=== PATIENT | female | born 1965 | race Caucasian/White ===

== ENCOUNTER 2023-09-28 11:26 | Emergency (ER) | payer OTHER, SELFPAY ==
[2023-09-28 11:40] VITALS: BP 104/70; PULSE 75; RESP 18; TEMP 36.6; O2SAT 95; BMI 26.6
--- NOTE | 2023-09-28 12:26 | CRLHL7_ITS ---
For Patients: As a result of the 21st Century Cures Act, medical imaging exams and procedure reports are released immediately into your electronic medical record. You may view this report before your referring provider. If you have questions, please contact your health care provider. INDICATION: Tumor removal 1 week ago with infection at the surgical site COMPARISON: None. TECHNIQUE: CT of the head and face after administration of intravenous contrast (79 milliliters Isovue 370) FINDINGS: Streak artifact from dental hardware limits evaluation of adjacent structures. Some linear fat stranding in the bilateral frontal scalp is compatible with postsurgical change/scarring. Postoperative changes associated with the bilateral frontal sinus/anterior frontal bone compatible with prior resection at this region as well as placement of bone graft and plate and screw fixation hardware. Deep to the region of postoperative change there is a 2.8 x 1.6 centimeter extra-axial collection with trace internal gas and a thin hyperattenuating rim which causes mild mass effect on the bilateral anterior frontal pole (2/15). There is mild nonspecific hyperattenuating dural thickening at the adjacent inferior portion of the bilateral frontal lobe. Focal rounded prominence of the extra-axial CSF space at the right greater than left paramidline region inferior to the frontal lobes measuring up to 18 millimeters. There is mild hypoattenuating change in the white matter which is slightly more conspicuous at the right frontal lobe near the surgical bed which could represent gliosis, postoperative change, or edema. There are several areas of nodular skin soft tissue thickening in the face and scalp which are better characterized by physical exam than CT such as prolonged millimeter soft tissue nodule at the right frontal scalp (2/8). Slight opacification of the bilateral anterior ethmoid air cells. Bilateral ino bullosa. The bilateral mastoid air cells are clear. Normal appearance of the bilateral orbits. Visualized portion of the salivary glands are normal appearing. IMPRESSION: Postoperative changes associated with the bilateral frontal sinus/anterior frontal bone compatible with prior resection at this region as well as placement of bone graft and plate and screw fixation hardware. Deep to the region of postoperative change there is a 2.8 cm extra-axial nonspecific postoperative fluid collection with trace internal gas and a thin hyperattenuating rim which causes mild mass effect on the bilateral anterior frontal pole. The sterility of this collection can not be assessed by CT. There is mild nonspecific hyperattenuating dural thickening at the adjacent inferior portion of the bilateral frontal lobe. There is mild hypoattenuating change in the white matter at the right frontal lobe near the surgical bed which could represent gliosis, postoperative change, or edema. Recommend correlation with operative history and prior imaging if available. Please note that all CT scans at this facility use dose modulation, iterative reconstruction, and/or weight-based dosing when appropriate to reduce radiation dose to as low as reasonably achievable. Dictated by Artie Joshi MD @ 09/28/2023 2:17:36 PM (Electronically Signed)
--- NOTE | 2023-09-28 12:26 | CRLHL7_ITS ---
For Patients: As a result of the Century Cures Act, medical imaging exams and procedure reports are released immediately into your electronic medical record. You may view this report before your referring provider. If you have questions, please contact your health care provider. INDICATION [Tumor removal 1 week ago with infection at the surgical site] COMPARISON [None.] TECHNIQUE CT of the head and face after administration of intravenous contrast (79 milliliters Isovue 370) FINDINGS Streak artifact from dental hardware limits evaluation of adjacent structures. Some linear fat stranding in the bilateral frontal scalp is compatible with postsurgical change/scarring. Postoperative changes associated with the bilateral frontal sinus/anterior frontal bone compatible with prior resection at this region as well as placement of bone graft and plate and screw fixation hardware. Deep to the region of postoperative change there is a 2.8 x 1.6 centimeter extra-axial collection with trace internal gas and a thin hyperattenuating rim which causes mild mass effect on the bilateral anterior frontal pole (2/15). There is mild nonspecific hyperattenuating dural thickening at the adjacent inferior portion of the bilateral frontal lobe. Focal rounded prominence of the extra-axial CSF space at the right greater than left paramidline region inferior to the frontal lobes measuring up to 18 millimeters. There is mild hypoattenuating change in the white matter which is slightly more conspicuous at the right frontal lobe near the surgical bed which could represent gliosis, postoperative change, or edema. [There are several areas of nodular skin soft tissue thickening in the face and scalp which are better characterized by physical exam than CT such as prolonged millimeter soft tissue nodule at the right frontal scalp (2/8). Slight opacification of the bilateral anterior ethmoid air cells. Bilateral ino bullosa. The bilateral mastoid air cells are clear. Normal appearance of the bilateral orbits. Visualized portion of the salivary glands are normal appearing. IMPRESSION Postoperative changes associated with the bilateral frontal sinus/anterior frontal bone compatible with prior resection at this region as well as placement of bone graft and plate and screw fixation hardware. Deep to the region of postoperative change there is a 2.8 cm extra-axial nonspecific postoperative fluid collection with trace internal gas and a thin hyperattenuating rim which causes mild mass effect on the bilateral anterior frontal pole. The sterility of this collection can not be assessed by CT. There is mild nonspecific hyperattenuating dural thickening at the adjacent inferior portion of the bilateral frontal lobe. There is mild hypoattenuating change in the white matter at the right frontal lobe near the surgical bed which could represent gliosis, postoperative change, or edema. Recommend correlation with operative history and prior imaging if available. Please note that all CT scans at this facility use dose modulation, iterative reconstruction, and/or weight-based dosing when appropriate to reduce radiation dose to as low as reasonably achievable. Dictated by: Artie Joshi MD @ 09/28/2023 14:17:54 (Electronically Signed)
--- NOTE | 2023-09-28 12:42 | ED.GENADULT ---
HPI - General Adult General Date Seen: 09/28/23 Chief complaint: Post Op Complication Stated complaint: Brain surgery x1wk ago, swelling, redness Time Seen by Provider: 09/28/23 12:15 Source: patient Mode of arrival: ambulatory Limitations: no limitations History of Present Illness HPI narrative: Patient is a 58-year-old female presenting to emergency department for concern of infection of her surgical site. Over a week ago at [facility] she had a brain tumor removed and was discharged 1 week ago. She was doing well up until this past couple days she has been noticing some erythema around the surgical site and now there are some yellow crusting spots the fall along the surgical site. She also notes increased swelling to that area and her cheeks. Headache is also getting worse. She states the headache was tolerable just a few days ago. The symptoms are worse than yesterday when she saw her neurosurgeon. Yesterday he prescribed her Keflex and topical antibiotic. Was informed to come to the emergency department if symptoms are worsening. Other that she is feeling well. Denies fevers, chills, chest pain, shortness of breath, lightheadedness, dizziness, abdominal pain, nausea/vomiting. Does think care vision might be a little blurry the can not tell if that is from an issue with her eye or just the swelling around the eye [place] being her field of vision. Related Data Home Medications ?Medication ?Instructions ?Recorded ?Confirmed Tylenol es 1,000 mg PO TID 09/28/23 09/28/23 cephalexin 500 mg capsule 500 mg PO QID 09/28/23 09/28/23 hydroxyzine pamoate 25 mg capsule 50 mg PO Q6-8H PRN 09/28/23 09/28/23 (Vistaril) levetiracetam 500 mg tablet 500 mg PO BID 09/28/23 09/28/23 (Keppra) methocarbamol 500 mg tablet 500 mg PO Q8H 09/28/23 09/28/23 mupirocin 2 % topical ointment 1 applic topical BID 09/28/23 09/28/23 (Centany) oxcodone 5 mg PO .4-6 hours 09/28/23 09/28/23 varenicline 1 mg tablet (Chantix) 1 mg PO BID 09/28/23 09/28/23 Allergies Allergy/AdvReac Type Severity Reaction Status Date / Time No Known Drug Allergies Allergy Verified 09/28/23 11:56 Review of Systems Status of ROS: Reports: 10 or more systems reviewed and unremarkable except as noted in History and below Exam Narrative: Exam Narrative: Const: Well-nourished, Well-developed, in mild distress Eyes: PERRL, no conjunctival injection, and symmetrical lids HENT: Atraumatic external nose and ears. Moist mucous membranes. Erythema seen throughout the surgical site through her eyebrows with marissa appearing crusting vesicles along the. Also noted swelling to her forehead and cheeks. Neck: Symmetric, trachea midline, No thyromegaly. CVS: RRR, No murmurs or gallops. Peripheral pulses 2+ and equal in all extremities RESP: Unlabored respiratory effort. Clear to auscultation bilaterally. GI: Nontender/Nondistended, No rebound or guarding. MSK:Extremities w/o deformity, Normal Active ROM Skin: Warm, Dry. No rashes or lesions. Neuro: Normal Muscle tone, No focal neurological deficits. Psych: Awake, Alert, & Oriented x3. Appropriate mood and affect. Const: Vital Signs, click to edit/add: Vital Signs - 24 hr 09/28/23 11:40 09/28/23 13:35 Temperature 97.8 F Pulse Rate [Pulse Oximeter] 75 57 L Respiratory Rate 18 18 Blood Pressure [Ri ght Upper Arm] 104/70 138/89 Pulse Oximetry 95 96 Oxygen Delivery Me thod Room Air Room Air Course Vital Signs Vital signs: Initial Vital Signs Temperature 97.8 F 09/28/23 11:40 Temperature Source Temporal Artery Scan 09/28/23 11:40 Pulse Rate 75 09/28/23 11:40 Respiratory Rate 18 09/28/23 11:40 Blood Pressure 104/70 09/28/23 11:40 Blood Pressure Mean 81 09/28/23 11:40 Blood Pressure Position Sitting 09/28/23 11:40 Pulse Oximetry 95 09/28/23 11:40 Oxygen Delivery Method Room Air 09/28/23 11:40 Vital Signs Temperature 97.8 F 09/28/23 11:40 Pulse Rate 75 09/28/23 11:40 Respiratory Rate 18 09/28/23 11:40 Blood Pressure 104/70 09/28/23 11:40 Pulse Oximetry 95 09/28/23 11:40 Oxygen Delivery Method Room Air 09/28/23 11:40 Temperature 97.8 F 09/28/23 11:40 Pulse Rate 57 L 09/28/23 13:35 Respiratory Rate 18 09/28/23 13:35 Blood Pressure 138/89 09/28/23 13:35 Pulse Oximetry 96 09/28/23 13:35 Oxygen Delivery Method Room Air 09/28/23 13:35 Medications Administered Medications: Discontinued Medications Generic Name Dose Route Start Last Admin Trade Name Lizzette PRN Reason Stop Dose Admin Morphine Sulfate 4 mg 09/28/23 12:26 09/28/23 13:01 Morphine 4 Mg/Ml Inj IVP 09/28/23 12:27 4 mg ONCE ONE Administration Medical Decision Making MDM Narrative Medical decision making narrative: Patient is a 58-year-old female presenting to the emergency department for headache and worsening infection around the surgical site. She states there is notably more swelling and is more painful. She is told to come to the emergency department for evaluation. Will do a CT scan with IV contrast of her head and facial bones. Also order CBC, CMP, CRP, urinalysis. She states she was having some urinary symptoms let us whether urinalysis was ordered. CBC shows no concerning abnormalities. CMP shows no concerning abnormalities. CRP is slightly elevated 3.2. I am unable to see her previous CRP that was done yesterday. CT scan of the head and facial bones shows a 2.8 x 1.6 cm fluid collection within the brain causing some mild mass effect. I spoke to Dr. Villarreal of neurosurgery her states to send her to the emergency department for transfer. I then [facility] Dr[facility] for transfer. Patient is agreeable to this plan. She has been given 2 separate doses of morphine for pain control. She states that is helping. We are unable to push the images and was sent to CD. Speaking to Dr. Puentes we will start the patient on vancomycin and Zosyn. She will be transferred via ambulance Lab Data Labs: Lab Results 09/28/23 Range/Units 13:04 WBC 11.55 H (4.50-11.00) K/uL RBC 4.12 (4.00-5.20) m/uL Hgb 11.5 L (12.0-16.0) gm/dL Hct 36.4 (33.0-51.0) % MCV 88 (80-100) fL MCH 28 (26-34) pg MCHC 32 (32-36) gm/dL RDW Coeff of Laci 13.7 (11.5-15.5) % Plt Count 232 (140-440) K/uL Neut % (Auto) 62.8 (42.0-72.0) % Lymph % (Auto) 22.2 (20-44) % Ashe % (Auto) 10.0 (0.0-11.0) % Eos % (Auto) 2.9 (0.0-7.0) % Baso % (Auto) 0.4 (0.0-3.0) % Neut # (Auto) 7.30 H (1.7-7.0) K/uL Lymph # (Auto) 2.60 (0.90-2.90) K/uL Ashe # (Auto) 1.20 H (0.00-0.90) K/UL Eos # (Auto) 0.30 (0.00-0.50) K/uL Baso # (Auto) 0.00 (0.00-0.30) K/uL Abs Immat Gran (auto) 0.20 (0.00-0.30) K/uL Imm/Tot Granulo (auto) 1.7 % Sodium 136 (135-149) mmol/L Potassium 3.7 (3.6-5.1) mmol/L Chloride 108 (96-114) mmol/L Carbon Dioxide 27 (20-32) mmol/L Anion Gap 1 L (7-15) mEq/L BUN 14 (7-30) mg/dL Creatinine 0.6 (0.5-1.5) mg/dL Estimated Creat Clear 90.84 Estimated GFR 103 ml/min Glucose 102 (60-115) mg/dL Calcium 9.1 (8.4-10.6) mg/dL C-Reactive Protein 3.2 H (0.5-1.0) mg/dL Imaging Data CT scan with IV contrast head and facial bones: Attestation: I have reviewed the pertinent imaging results. Radiologist's impression: Postoperative changes associated with the bilateral frontal sinus/anterior frontal bone compatible with prior resection at this region as well as placement of bone graft and plate and screw fixation hardware. Deep to the region of postoperative change there is a 2.8 cm extra-axial nonspecific postoperative fluid collection with trace internal gas and a thin hyperattenuating rim which causes mild mass effect on the bilateral anterior frontal pole. The sterility of this collection can not be assessed by CT. There is mild nonspecific hyperattenuating dural thickening at the adjacent inferior portion of the bilateral frontal lobe. There is mild hypoattenuating change in the white matter at the right frontal lobe near the surgical bed which could represent gliosis, postoperative change, or edema. Recommend correlation with operative history and prior imaging if available. Please note that all CT scans at this facility use dose modulation, iterative reconstruction, and/or weight-based dosing when appropriate to reduce radiation dose to as low as reasonably achievable. Dictated by: Artie Joshi MD @ 09/28/2023 14:17:54 Discharge Plan Discharge Clinical Impression: Impetigo Fluid collection at surgical site Qualifiers: Encounter type: initial encounter Qualified Code(s): T88.8XXA - Other specified complications of surgical and medical care, not elsewhere classified, initial encounter Patient Disposition: Xfer Other Discharge Location: [facility] Condition: Stable Prescriptions: No Action oxcodone 5 mg PO .4-6 hours Patient Comments: 2 tabs methocarbamol 500 mg tablet 500 mg PO Q8H hydroxyzine pamoate [Vistaril] 25 mg capsule 50 mg PO Q6-8H PRN varenicline [Chantix] 1 mg tablet 1 mg PO BID levetiracetam [Keppra] 500 mg tablet 500 mg PO BID Tylenol es 1,000 mg PO TID cephalexin 500 mg capsule 500 mg PO QID mupirocin [Centany] 2 % ointment 1 applic topical BID Follow Up/Referrals: Provider,Not a Local [Primary Care Provider] - Stand Alone Forms: Vigme Info Instructions
--- OUTSIDE RECORDS SUMMARY | 2023-09-28 12:46 | XMS_ITS | Encounter Summary ---
Author Organization [facility] Address [address] [place] [address] Care Team Providers Care Map Maker Name Role Phone Svitlana Olmos MD Primary Care Provider [phone] Encounter Details Date Type Department Care Team (Late st Contact Info) Description 09/23/2023 Notes/Orders [facility] Cardiac Non-Invasive Lab [address] [place], [place] [id number] Chiquita Gaffney MD [address] [place], [place] [phone] Bradycardia (Primary Dx) Social History Tobacco Use Types Packs/Day Years Used Date Smoking Tobacco: Every Day Cigarettes 1 40.2 Started: 02/28/1979; Last attempted to quit: 05/30/2019 Smokeless Tobacco: Never Comments:Smoking History Pac ks/day: quit 06/13/2023 Alcohol Use Standard Drinks/Week Comments No 0 (1 standard drink = 0.6 oz pur e alcohol) [facility] Utilities Answer Date Recorded In the past 12 months has e [employer], gas, oil, or water [place] threatened to shut off services in your home? No 09/14/2023 Humiliation, Afraid, Rape, and Kick questionnair e Answer Date Recorded Fear of Current or Ex-Partner Not on file Within the last year, have y ou been humiliated or emotionally abused in other ways by your partner or ex-partner? No 09/14/2023 Within the last year, have y ou been kicked, hit, slapped, or otherwise physically hurt by your partner or ex-partner? No 09/14/2023 Within the last year, have y ou been raped or forced to have any kind of sexual activity by your partner or ex-partner? No 09/14/2023 PHQ-2 Answer Date Recorded PHQ-2 Score 0 06/09/2023 Hunger Vital Sign Answer Date Recorded Within the past 12 months, y ou worried that your food would run out before you got the money to buy more. Never true 09/14/19 24 Within the past 12 months, t he food you bought just didn't last and you didn't have money to get more. Never true 09/14/2023 PRAPARE - Transportation Answer Date Re corded In the past 12 months, has l ack of transportation kept you from medical appointments or from getting medications? No 08/28 In the past 12 months, has l ack of transportation kept you from meetings, work, or from getting things needed for daily living? No 09/14/2023 Housing Stability Vital Sign Answer Davie e Recorded In the last 12 months, was t here a time when you were not able to pay the mortgage or rent on time? No 09/14/2023 In the last 12 months, how many places have you lived? 1 09/14/2023 In the last 12 months, was t here a time when you did not have a steady place to sleep or slept in a mcfp (including now)? No 09/14/2023 Sex and Gender Information Value Date Recorded Sex Assigned at Not on file Gender Identity Not on file Sexual Orientation Not on file documented as of this encounter Plan of Treatment Upcoming Encounters Date Type Department Care Team (Late st Contact Info) Description 09/29/2023 8:40 AM CDT Appointment [facility] Neurosurgery/Ortho Spine [address] [place] [address] Nurse Visit 10/03/2023 11:00 AM CDT Appointment [facility] [address] [address] Svitlana Olmos MD [address] [place] [address] 10/20/2023 10:30 AM CDT Appointment [facility] Neurosurgery[facility]tho Spine [address] [facility] [place] [address] 12/06/2023 10:20 AM CDT Appointment [facility] Neurosurgery/Ortho Spine [address] [facility] [place] [place] [address] Jg Munguia MD [address] [place] [address] 01/03/2024 11:20 AM [employer] Appointment [facility] Dental [facility] [id number] [place] [address] [facility] [address] [place] [address] documented as of this encounter Visit Diagnoses Diagnosis Bradycardia- Primary Other specified cardiac dysrhythmias documented in this encounter Care Teams Map Maker Relationship Specialty Start Date End Date Svitlana Olmos MD [address] [place] [id number] PCP - General 05/30/10 documented as of this encounter
--- OUTSIDE RECORDS SUMMARY | 2023-09-28 12:46 | XMS_ITS | Encounter Summary ---
[facility] Organization [facility] Address [address] [place] [address] Care Team Providers Care Lockstitch Back Maker Name Role Phone Svitlana Olmos MD Primary Care Provider [phone] Reason for Referral * Procedure/Equipment (Routine) - New Request Specialty Diagnoses / Procedures Referred By Contac t Referred To Contact Diagnoses Meningioma (HRC) Procedures Hospital Bed - Electric Svitlana Olmos MD [address] [place] [address] Referral ID Status Reason Start Date Expiration Date V isits Requested Visits Authorized [id number] New Request 09/26/2023 03/24/2024 1 1 Reason for Visit * Reason Comments Other Encounter Details Date Type Department Care Team (Late st Contact Info) Description 09/26/2023 Telephone [facility] [address] [place] [address] Svitlana Olmos MD [address] [place] [address] Other Social History Tobacco Use Types Packs/Day Years Used Date Smoking Tobacco: Every Day Cigarettes 1 40.2 Started: 02/28/1979; Last attempted to quit: 05/30/2019 Smokeless Tobacco: Never Comments:Smoking History Pac ks/day: quit 06/13/2023 Alcohol Use Standard Drinks/Week Comments No 0 (1 standard drink = 0.6 oz pur e alcohol) [facility] Utilities Answer Date Recorded In the past 12 months has th e electric, gas, oil, or water company threatened to shut off services in your [...] place to sleep or slept in a nursing home (including now)? No 09/14/2023 Sex and Gender Information Value Date Recorded Sex Assigned at Not on file Gender Identity Not on file Sexual Orientation Not on file documented as of this encounter Nursing Notes * Shanita Escamilla LPN - 09/26/2023 4:18 PM CDT Notified pt that order will be sent to [facility] and they should be in touch with her. * Svitlana Olmos MD - 09/26/2023 3:56 PM CDT I printed the order, need to sign it. Just need to know where she wants us to send it. Many of our patients down here use [employer] [facility]. * Shanita Escamilla LPN - 09/26/2023 3:22 PM CDT She has no preference but has names of possible companies: [employer], [employer], [employer], [employer]. Bed needs to be semi automatic. * Svitlana Olmos MD - 09/26/2023 2:11 PM CDT Please call her to get more information. 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 Does she know where she wants to get the bedfrom? * Timur Weathers - 09/26/2023 10:48 AM CDT Pt needs to speak with care team SARAH BETH to discuss getting order for medical bed - needs to be withinnext 24 hours if possible. Please call today - [phone] documented in this encounter Plan of Treatment Upcoming Encounters Date Type Department Care Team (Late st Contact Info) Description 09/29/2023 8:40 AM CDT Appointment [facility] Neurosurgery/Ortho Spine [address] [place] [address] Nurse Visit 10/03/2023 11:00 AM CDT Appointment [facility] [address] [address] Svitlana Olmos MD [address] [place] [address] 10/20/2023 10:30 AM CDT Appointment [facility] Neurosurgery/Ortho Spine [address] [place] [address] 12/06/2023 10:20 AM CDT Appointment [facility] Neurosurgery/Ortho Spine [address] [place] [address] Jg Munguia MD [address] [place] [address] 01/03/2024 11:20 AM SPEECH COMMUNICATION PROFESSOR Appointment [facility] [address] [place], [place] [phone] [facility] [address] [place], [place] [id number] documented as of this encounter Visit Diagnoses Diagnosis Meningioma (HRC)- Primary Benign neoplasm of cerebral meninges documented in this encounter Care Teams Lockstitch Back Maker Relationship Specialty Start Date End Date Svitlana Olmos MD [address] [place] [address] PCP - General 05/30/10 documented as of this encounter
--- OUTSIDE RECORDS SUMMARY | 2023-09-28 12:46 | XMS_ITS | Encounter Summary ---
Author Organization [facility] Address [address] [place] [address] Care Team Providers Care Nuisance Animal Damage Control Agent Name Role Phone Svitlana Olmos MD Primary Care Provider [phone] Reason for Visit * Reason Comments Medication Request Encounter Details Date Type Department Care Team (Late st Contact Info) Description 09/26/2023 Refill [facility] [address] [place] [address] [place] [id number] Svitlana Olmos MD [address] [place], [place] [address] [phone] Medication Request Social History Tobacco Use Types Packs/Day Years Used Date Smoking Tobacco: Every Day Cigarettes 1 40.2 Started: 02/28/1979; Last attempted to quit: 05/30/2019 Smokeless Tobacco: Never Comments:Smoking History Pac ks/day: quit 06/13/2023 Alcohol Use Standard Drinks/Week Comments No 0 (1 standard drink = 0.6 oz pur e alcohol) [facility] Utilities Answer Date Recorded In the past 12 months has e electric, gas, oil, or water company [...] place to sleep or slept in a long term (including now)? No 09/14/2023 Sex and Gender Information Value Date Recorded Sex Assigned at Not on file Gender Identity Not on file Sexual Orientation Not on file documented as of this encounter Nursing Notes * Shanita Escamilla LPN - 09/26/2023 3:25 PM CDT Spoke to pt and she reports that she called [facility] and they told her to contact her PMD. * Svitlana Olmos MD - 09/26/2023 2:18 PM CDT Please let the patient know I did send in her refills. 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 Just curious. (There is another call out about a hospital bed for her as well). * Arlen Ramon RN - 09/26/2023 2:02 PM CDT DOES NOT MEET REQUIREMENTS FOR REFILL Reason: medication not on approved RN refill list and needing signed order from PCP Last visit with PCP: qualifying visit on 08/31/2023 Last refill: 09/22/2023 from [facility] Outpatient pharmacy for hospital discharge #16 hydroxyzine #30 methocarbamol #25 oxycodone Called [facility] outpatient pharmacy and pt was given prescriptions to take home with her on 09/22/2023. Patient had brain surgery last week she states and was discharged on 09-21-23 and does not have enough of the above medications that Neurosurgeon prescribed from hospital at [facility] and she was toldto call PCP and ask for meds as patient does not have enough meds till appt with PCP on 10-03-23. Requested Prescriptions Pending Prescriptions Disp Refills hydrOXYzine pamoate (VISTARIL) 50 MG capsule 20 Capsule 0 Sig: Take 1 Capsule (50 mg) by mouth every 6 hours as needed for Pain. methocarbamol (ROBAXIN) 500 MG tablet 20 Tablet 0 Sig: Take 1 Tablet (500 mg) by mouth 4 times daily as needed. oxyCODONE (ROXICODONE) 5 MG immediate release tablet 30 Tablet 0 Sig: Take 1-2 Tablets (5-10 mg) by mouth every 6 hours as needed for Pain. * Kvng Martinez - 09/26/2023 1:41 PM CDT Medications - New Medication What medication are you calling about (name or what do/did you take it for)? Medications - see below and addl comments please Why are you calling for this medication? hydrOXYzine pamoate (VISTARIL) 50 MG capsule - wants 20 tablets methocarbamol (ROBAXIN) 500 MG tablet - wants 20 tablets oxyCODONE (ROXICODONE) 5 MG immediate release tablet - wants 30 tablets Do you have any symptoms related to this medication request? Yes - no Have you taken this medication or type of medication before and if so, when was it last taken? Yes: today - daily Additional comments (related to the above concern): Patient had Brain surgery last week she states and was discharged on 09-21-23 and does not have enough of the above medications that Neurosurgeon prescribed from hospital at [facility] and she was told to call PCP and ask for meds as patient does not have enough meds till appt with PCP on 10-03-23. For this new medication, patient would like it filled at the pharmacy listed in Medication Management. YES Preferred communication method: Phone Call. Is it okay to leave a detailed message on your voicemail? Yes Is there anything else I can help you with today? NO documented in this encounter Plan of Treatment Upcoming Encounters Date Type Department Care Team (Late st Contact Info) Description 09/29/2023 8:40 AM CDT Appointment [facility] Neurosurgery/Ortho Spine [address] [facility]. [place] [id number] Nurse Visit 10/03/2023 11:00 AM CDT Appointment [facility] [place] [address] Svitlana Olmos MD [address] [place] [address] 10/20/2023 10:30 AM CDT Appointment [facility] [address] [facility] [place] [id number] 12/06/2023 10:20 AM CDT Appointment [facility] [address] [facility] [place] [address] Jg Munguia MD [address] [place] [address] 01/03/2024 11:20 AM WOMENS VOLLEYBALL COACH [facility]ment [facility] [place] [address] [place], [place] [phone] Latha Burns, [facility] [address] [place], [place] [phone] documented as of this encounter Visit Diagnoses Not on filedocumented in this encounter Care Teams Nuisance Animal Damage Control Agent Relationship Specialty Start Date End Date Svitlana Olmos MD [address] [place] [id number] PCP - General 05/30/10 documented as of this encounter
--- OUTSIDE RECORDS SUMMARY | 2023-09-28 12:46 | XMS_ITS | Encounter Summary ---
Author Organization [facility] Address [address], [place] [address] Care Team Providers Care Tableau Analyst Name Role Phone Svitlana Olmos MD Primary Care Provider [phone] Reason for Visit * Reason Comments Other See message 09/26/23 Encounter Details Date Type Department Care Team (Late st Contact Info) Description 09/27/2023 Telephone [facility] [address] [facility] [place] [phone] Svitlana Olmos MD [address] [place] [phone] Other (See message 09/26/23) Social History Tobacco Use Types Packs/Day Years Used Date Smoking Tobacco: Every Day Cigarettes 1 40.2 Started: 02/28/1979; Last attempted to quit: 05/30/2019 Smokeless Tobacco: Never Comments:Smoking History Pac ks/day: quit 06/13/2023 Alcohol Use Standard Drinks/Week Comments No 0 (1 standard drink = 0.6 oz pur e alcohol) [facility] Utilities Answer Date Recorded In the past 12 months has th e electric, gas, oil, or water [employer] threatened to shut off services in your [...] place to sleep or slept in a alf (including now)? No 09/14/2023 Sex and Gender Information Value Date Recorded Sex Assigned at Not on file Gender Identity Not on file Sexual Orientation Not on file documented as of this encounter Nursing Notes * Shanita Escamilla LPN - 09/28/2023 11:16 AM CDT Printed and faxed per request. * Svitlana Olmos MD - 09/28/2023 10:20 AM CDT Okay to print discharge summary from her most recent hospitalization (found under notes) and her visit in neurosurgery from yesterday and faxed to [facility]. * Kathryn Tejeda - 09/27/2023 11:51 AM CDT Other Questions/Concerns/FYI Is this a symptom? No What is your question or concern? Pt calling advised [facility] Medical needs reason/visit notes why bed is juma requested. fax#[phone] Have you recently been seen for this? Yes: PCP, Neuro surgeon Preferred communication method: Phone Call. Is it okay to leave a detailed message on your voicemail? Yes Is there anything else I can help you with today? No No documented in this encounter Plan of Treatment Upcoming Encounters Date Type Department Care Team (Late st Contact Info) Description 09/29/2023 8:40 AM CDT Appointment [facility] Neurosurgery/Ortho Spine [address] [facility]. [place] [id number] Nurse Visit 10/03/2023 11:00 AM CDT Appointment [facility] [address] [place] [address] [place] [address] Svitlana Olmos MD [address] [place] [address] [place] [address] 10/20/2023 10:30 AM CDT Appointment [facility] Neurosurgery/Ortho Spine [address] [place] [address] 12/06/2023 10:20 AM CDT Appointment [facility] Neurosurgery/Ortho Spine [address] [place] [address] Jg Munguia MD [address] [place] [address] 01/03/2024 11:20 AM ESCORT PATIENTS Appointment [facility] [address] [place] [address] Latha Burns, [facility] [address] [place], [place] [phone] documented as of this encounter Visit Diagnoses Not on filedocumented in this encounter Care Teams Tableau Analyst Relationship Specialty Start Date End Date Svitlana Olmos MD [address] [place] [address] PCP - General 05/30/10 documented as of this encounter
--- OUTSIDE RECORDS SUMMARY | 2023-09-28 12:46 | XMS_ITS | Encounter Summary ---
Author Organization [facility] Address [address] [place] [address] Care Team Providers Care Social Science Research Assistant Name Role Phone Svitlana Olmos MD Primary Care Provider [phone] Reason for Visit * Reason Comments FOLLOW-UP,HOSPITAL Encounter Details Date Type Department Care Team (Late st Contact Info) Description 09/26/2023 Telephone [facility] [address] [place], [place] [address] Candelaria Hernandez RN FOLLOW-UP,HOSPITAL Social History Tobacco Use Types Packs/Day Years Used Date Smoking Tobacco: Every Day Cigarettes 1 40.2 Started: 02/28/1979; Last attempted to quit: 05/30/2019 Smokeless Tobacco: Never Comments:Smoking History Pac ks/day: quit 06/13/2023 Alcohol Use Standard Drinks/Week Comments No 0 (1 standard drink = 0.6 oz pur e alcohol) [facility] Utilities Answer Date Recorded In the past 12 months has [employer] electric, gas, oil, or water company threatened [...] place to sleep or slept in a snf (including now)? No 09/14/2023 Sex and Gender Information Value Date Recorded Sex Assigned at Not on file Gender Identity Not on file Sexual Orientation Not on file documented as of this encounter Nursing Notes * Svitlana Olmos MD - 09/26/2023 4:57 PM CDT I already placed an order for this due to head position from a recent meningioma repair. Can you see that in the orders? I did it based off of a telephone call today. * Candelaria Hernandez RN - 09/26/2023 4:13 PM CDT Action is required from the clinic for Ruthann Rosas. Action needed: Please assist: Patient is requesting a rental of a hospital bed. I have call Neurosurgery and they decline to write a prescription. Patient is s/p rotator cuff repair however she is 3 months out from this surgery so I don't know if [facility] would order. Hospital bed has a policy for coverage Indications that are covered A hospital bed is considered medically necessary when: The member???s medical condition requires features of a hospital bed (such as height adjustment, head and/or foot adjustments) which are not available for use with ordinary beds due to one of the following reasons: The member's condition requires positioning of the body (e.g., to alleviate pain, promote good bodyalignment, prevent contractures, or avoid respiratory infections) in ways not feasible in an ordinary bed. I am unsure if patient meet criteria. Ruthann Rosas is enrolled with Disease and Case Management. Please see the Problem List for careplan and shoe caserintern product marketing manager information. 09/26/2023, 4:14 PM documented in this encounter Plan of Treatment Upcoming Encounters Date Type Department Care Team (Late st Contact Info) Description 09/29/2023 8:40 AM CDT Appointment [facility] [address] [facility] [place] [address] Nurse Visit 10/03/2023 11:00 AM CDT Appointment [facility] [place] [address] Svitlana Olmos MD [facility] [place] [address] [place] [address] 10/20/2023 10:30 AM CDT Appointment [facility] Neurosurgery/Ortho Spine [address] [facility]. [place] [id number] 12/06/2023 10:20 AM CDT Appointment [facility] Neurosurgery/Ortho Spine [address] [facility]. [place] [address] Jg Munguia MD [address] [facility] [place] [address] 01/03/2024 11:20 AM CEMENT CUTTER [facility]ment [facility] [place] [id number] [place] [phone] Latha Burns, [facility] [address] [place], [place] [phone] documented as of this encounter Visit Diagnoses Not on filedocumented in this encounter Care Teams Social Science Research Assistant Relationship Specialty Start Date End Date Svitlana Olmos MD [address] [place] [id number] PCP - General 05/30/10 documented as of this encounter
--- OUTSIDE RECORDS SUMMARY | 2023-09-28 12:46 | XMS_ITS | Clinical Summary ---
[facility] Address [address] [place] [address] Care Team Providers Care Mine Motor Engineer Name Role Phone Svitlana Olmos MD Primary Care Provider [phone] Source Comments You are receiving this document as you are listed as the primary care provider,follow-up provider, or the patient has been referred to you for consultation.This is in compliance with the Medicare and[facility] Cent[facility] EHR Incentive Program,which states Providers who transition their patient to another setting of careor provider of care or refers their patient to another provider of care shouldprovide summary care record for each transition of care or referral. [facility] Allergies No known active allergies Medications Medication Sig Dispensed Refills Start Date End Date Status Multiple Vitamins-Minerals (MULTIVITAMIN OR) Take 1 tablet by mouth daily (every 24 hours). 100 13 06/02/19 06 Active ascorbic acid (AKA VITAMIN C) 500 MG tablet Take 2 Tablets (1,000 mg) by mouth daily. 06/02/19 06 Active Cholecalciferol (VITAMIN D-3 OR) Active Calcium Carbonate (CALCIUM 500 OR) Active acyclovir (ZOVIRAX) 400 MG tabletIndications: Recurrent cold sores Take 1 Tablet (400 mg) by mouth three times a day as needed. 15 Tablet 3 03/24/19 23 Active varenicline (CHANTIX) 1 MG tabletIndications: Tobacco abuse (HRC) Take 1 Tablet (1 mg) by mouth two times a day. Take after eating with a full glass of water.NOTE:Dispe nse as maintenance for refills only. 180 Tablet 3 05/25/19 24 Active acetaminophen (TYLENOL) 325 MG tablet Take 1-2 Tablets (325-650 mg) by mouth every 6 hours as needed for Pain. 45 Tablet 1 06/16/19 24 Active traZODone (DESYREL) 100 MG tabletIndications: Chronic insomnia Take 2 Tablets (200 mg) by mouth daily at bedtime. 180 Tablet 3 08/31/19 24 Active Dallas-3 Fatty Acids (FISH OIL) 1000 MG capsule Take 1 Capsule (1,000 mg) by mouth daily. Do not start before September 28, 2023. 09/28/19 24 Active Garlic (ODOR FREE GARLIC) 100 MG Take 1 Tablet (100 mg) by mouth daily. Do not start before September 28, 2023. 09/28/19 24 Active ibuprofen (MOTRIN) 600 MG tablet Take 1 Tablet (600 mg) by mouth every 6 hours as needed for Pain. Do not start before September 28, 2023. 09/28/19 24 Active levETIRAcetam (KEPPRA) 500 MG tablet Take 1 Tablet (500 mg) by mouth two times a day for 7 days. 14 Tablet 09/20/19 24 024 Active sennosides-docusat e sodium (SENOKOT S) 8.6-50 MG per tabletIndications: Constipation Take 2 Tablets by mouth two times daily as needed for Constipation. Indications: Constipation 60 Tablet 09/20/19 24 Active famotidine (PEPCID) 20 MG tablet Take 1 Tablet (20 mg) by mouth two times a day before meals. 6 Tablet 09/21/19 24 Active dexAMETHasone (DECADRON) 2 MG tablet Take 1 tablet (2 mg) by mouth twice daily on 09/21/23. Then, take 1 tablet (2 mg) daily on 09/22/23, then stop. 3 Tablet 09/20/19 24 Active hydrOXYzine pamoate (VISTARIL) 50 MG capsule Take 1 Capsule (50 mg) by mouth every 6 hours as needed for Pain. 20 Capsule 09/26/19 24 Active methocarbamol (ROBAXIN) 500 MG tablet Take 1 Tablet (500 mg) by mouth 4 times daily as needed. 20 Tablet 09/26/19 24 Active oxyCODONE (ROXICODONE) 5 MG immediate release tablet Take 1-2 Tablets (5-10 mg) by mouth every 6 hours as needed for Pain. 30 Tablet 09/26/19 24 Active cephalexin (KEFLEX) 500 MG capsuleIndications :Infection Take 1 Capsule (500 mg) by mouth 4 times a day. 28 Capsule 09/27/19 24 Active mupirocin (BACTROBAN) 2 % ointmentIndication s:Infection Apply topically three times a day. 30 g 09/27/19 24 Active ODOR FREE GARLIC OR Take by mouth daily (every 24 hours). 06/02/19 06 024 Discontinued omega-3 fatty acids (FISH OIL) 1000 MG capsule Indications: PN: 11/30/19 Discontinued triamcinolone acetonide (KENALOG) 0.1 % ointmentIndication s:Dermatitis Apply topically two times a day. Use on hand dermatits, taper to once a day as improves. Not for use on normal skin, face, or skin folds. 80 g 2 05/25/19 24 024 Discontinued(Ino ness Discharged) traZODone (DESYREL) 100 MG tabletIndications: Chronic insomnia Take 1 Tablet (100 mg) by mouth daily at bedtime. 90 Tablet 3 05/25/19 24 Discontinued(*M ed change OR same med OR reorder, new dose/directions ) senna (SENNA LAXATIVE) 8.6 MG tablet Take 1 Tablet by mouth daily. 50 Tablet 06/16/19 24 024 Discontinued(Ino ness Discharged) ibuprofen (MOTRIN) 600 MG tablet Take 1 Tablet (600 mg) by mouth every 6 hours as needed for Pain. 40 Tablet 06/16/19 24 024 Discontinued oxyCODONE (ROXICODONE) 5 MG immediate release tabletIndications: Traumatic complete tear of right rotator cuff, initial encounter Take 1 Tablet (5 mg) by mouth every 4 hours as needed for Pain. 15 Tablet 06/20/19 24 024 Discontinued(*R esolved Condition) hydrOXYzine HCl (ATARAX) 25 MG tabletIndications: Traumatic complete tear of right rotator cuff, initial encounter Take 1 Tablet (25 mg) by mouth three times a day as needed. 30 Tablet 06/20/19 24 024 Discontinued(*R esolved Condition) gabapentin (NEURONTIN) 300 MG capsule Take 1 Capsule (300 mg) by mouth at bedtime as needed (pain). 60 Capsule 06/28/19 24 024 Discontinued(*R esolved Condition) ondansetron (ZOFRAN-ODT) 8 MG disintegrating tablet Take 1 Tablet (8 mg) by mouth every 8 hours as needed. 06/11/19 24 024 Discontinued(*R esolved Condition) bacitracin 500 UNIT/GM ointment Apply topically three times a day to surgical incision. 28 g 09/20/19 24 024 Discontinued(Ino ness Discharged) methocarbamol (ROBAXIN) 500 MG tablet Take 1 Tablet (500 mg) by mouth 4 times daily as needed. 30 Tablet 09/22/19 24 024 Discontinued(*M ed change OR same med OR reorder, new dose/directions ) hydrOXYzine pamoate (VISTARIL) 50 MG capsule Take 1 Capsule (50 mg) by mouth every 6 hours as needed for Pain. 16 Capsule 09/22/19 24 024 Discontinued(*M ed change OR same med OR reorder, new dose/directions ) oxyCODONE (ROXICODONE) 5 MG immediate release tablet Take 1-2 Tablets (5-10 mg) by mouth every 6 hours as needed for Pain. 25 Tablet 09/22/19 24 024 Discontinued(*M ed change OR same med OR reorder, new dose/directions ) Active Problems Problem Noted Date Diagnosed Date Bradycardia, sinus 09/19/2023 Hypotension 09/15/2023 Post-op pain 09/14/2023 Eye swelling, bilateral 09/14/2023 Cerebral edema 09/14/2023 Coordination of complex care 09/14/2023 Meningioma 06/14/2023 Traumatic complete tear of right rotator cuff FHx: colonic polyps 04/27/2022 Overview: Colonoscopy completed 03/2022. Repeat in 5 years. 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, in remission 01/29/2011 10/17/2014 Counseling for parent-child problem 01/29/2011 10/17/2014 Overview: Counseling for parent-child problem, unspecified Anxiety state 01/06/2011 09/26/2020 Overview: Anxiety state, unspecified Alcohol withdrawal 07/30/2010 Eczematous dermatitis of eyelid 01/28/2006 05/04/2012 Overview: Dermatitis Eyelid Grand multiparity in labor and delivery 08/27/2003 03/27/2020 Overview: ; Multiparity Grand w Preg Tobacco use disorder 08/04/2002 015 Overview: Tobacco Abuse Encounters Date Type Department Care Team Description 09/27/2023 1:30 PM CDT Lab Visit [facility] [address] [place] [address] Infection 09/27/2023 12:20 PM CDT Office Visit [facility] Neurosurgery/Ortho Spine [address] [place] [address] Infection (Primary Dx) 09/27/2023 E-Visit [facility] Neurosurgery/Ortho Spine [address] [place] [address] Mychart, Generic Provider 09/27/2023 Telephone [facility] [address] JANET Chen [phone] Svitlana Olmos MD Other (See message 09/26/23) 09/26/2023 Telephone [facility] [address] [place] [address] Candelaria Hernandez RN FOLLOW-UP,HOSPITAL 09/26/2023 Refill [facility] [address] [place] [address] Svitlana Olmos MD Medication Request 09/26/[address] [address] Svitlana Olmos MD Other 09/23/2023 Notes/Orders [facility] Cardiac Non-Invasive Lab [address] [place] [address] Chiquita Gaffney MD Bradycardia (Primary Dx) 09/15/2023 12:20 AM CDT Ancillary Procedure [facility] [address] [place] [address] Jg Munguia MD 09/14/2023 7:36 AM CDT Anesthesia Event [facility] [address] [place] [address] Yanique Flores MD Yamashita, Lilia F, SENIOR ENVIRONMENTAL ENGINEER, WINE CELLAR STOCK CLERK 09/14/2023 7:15 AM CDT - 09/14/2023 11:15 AM CDT Surgery [facility] [address] [place] [address] Jg Munguia MD Stealth guided Medial Eyebrow Craniotomy for Meningioma Resection. 09/14/2023 6:30 AM CDT Ancillary Procedure [facility] [address] [place] [address] Jg Munguia MD Meningioma (HRC) 09/14/2023 4:48 AM CDT - 09/22/2023 3:23 PM CDT Hospital Encounter [facility] [address] [place] [address] Jg Munguia MD Bradycardia, sinus (Primary Dx); Meningioma (HRC); S/P craniotomy Discharge Disposition: Home 09/14/2023 Orders Only [facility] DEPARTMENT Provider, MD Mehnaz 09/13/2023 10:00 AM CDT Ancillary Procedure [facility] [address] [place] [address] Jg Munguia MD Meningioma (HRC) 09/06/2023 9:50 AM CDT Office Visit [facility] [address] [place] [address] Allison Harkins MD S/P rotator cuff repair (Primary Dx) 09/06/[address] [address] Allison Harkins MD Forms 09/05/2023 10:[address] [facility] Physical [address] [address] César Gleason, PT Traumatic tear of right rotator cuff, unspecified tear extent, subsequent encounter (Primary Dx) 08/31/2023 3:30 PM CDT Lab Visit [facility] [address] [place] [address] Preoperative examination 08/31/2023 10:30 AM CDT Pre-Op Visit [facility] Medicine [address] [place] [address] Svitlana Olmos MD Preoperative examination (Primary Dx); Meningioma (HRC); Chronic insomnia; Preop examination 08/31/2023 Telephone [facility] Neurosurgery/Ortho Spine [address] [place] [address] Jg Munguia MD Forms (The Standard Physician's statement) 08/29/2023 2:[address] [facility] Physical [address] [address] César Gleason, PT Traumatic tear of right rotator cuff, unspecified tear extent, subsequent encounter (Primary Dx) 08/25/2023 1:00 PM CDT Office Visit [facility] Hand Therapy [address] [place] [address] Mary Jo Roach, OTR/L Numbness and tingling of right arm (Primary Dx) 08/25/2023 12:40 PM CDT Office Visit [address] [address] Henry Odom MD Wells, David T, SENIOR ENVIRONMENTAL ENGINEER, RESOURCE DEVELOPMENT DIRECTOR Right arm numbness (Primary Dx) 08/23/2023 11:[address] [facility] Physical [address] [address] César Gleason, PT Traumatic tear of right rotator cuff, unspecified tear extent, subsequent encounter (Primary Dx) 08/18/2023 Telephone [facility] Unassigned, Provider Dental Services 08/16/2023 1:00 PM CDT Office Visit [address] [address] Allison Harkins MD S/P rotator cuff repair (Primary Dx) 08/11/2023 8:15 AM CDT Therapy [address] [address] César Gleason, PT Traumatic tear of right rotator cuff, unspecified tear extent, subsequent encounter (Primary Dx) 08/09/[address] [address] Allison Harkins MD QUESTIONS, GENERAL (Pt requesting to speak with care team regarding right arm and hand swelling and numbness in hand and fingers postoperatively.) 08/04/2023 1:[address] [facility] Physical [address] [address] Janeen Cisneros, PT Traumatic tear of right rotator cuff, unspecified tear extent, subsequent encounter (Primary Dx) 08/02/2023 Telephone [facility] Neurosurgery/Ortho Spine [address] [facility] [place] [address] Jg Munguia MD Questions (Surgery/) 07/29/2023 10:30 AM CDT Office Visit [address] [address] Alphonse Zhong, PIETRO S/P rotator cuff repair (Primary Dx) 07/28/2023 2:00 PM CDT Office Visit [facility] [address] [place] [address] Brandy Chou, DDS Problem Focused Exam (Broken tooth, no pain - points to #3 ) 07/28/2023 9:[address] [facility] Physical Therapy [place] [address] [place] [address] César Gleason, PT Traumatic tear of right rotator cuff, unspecified tear extent, subsequent encounter (Primary Dx) 07/21/2023 Telephone [facility] [address] [place] [address] Fabiola Batres, JUANS Problem Focused Exam 07/18/2023 10:30 AM CDT Therapy [facility] Physical Therapy [address] [place] [address] Sherman Mccallum, PT Traumatic tear of right rotator cuff, unspecified tear extent, subsequent encounter (Primary Dx) 07/12/2023 6:45 PM CDT Ancillary Procedure [facility] [address] Ul[address]ound [address] [place] [phone] Doe Cuellar PA-C Arm mass, right 07/12/2023 5:40 PM CDT Office Visit [facility] [address] [place] [phone] Doe Cuellar PA-C Arm mass, right; Arm edema 06/28/2023 11:50 AM CDT Office Visit [facility] [address] [place] [address] Allison Harkins MD Traumatic complete tear of right rotator cuff, initial encounter (Primary Dx) from Last 3 Months Immunizations Name Administration Dates Next Due Flu Vac Preserv Free (3+yrs) 12/29/2010, 12/26/2010,11/25/2008, 008,12/20/2006,12/04/2005,12/14/2003 H1n1 Laiv Medimmune 2-49 Yr (Intranasal) 12/14/2008 Influenza IIV4 (Quadrivalent ) 0.5mL (60787) 01/28/2015,01/14/2014,03/19/2013 Influenza LAIV (Nasal, 2-49 yrs) 02/18/2012 Pfizer Monovalent 12+ Purple Top 02/17/2021,02/28,02/20/2020 TDAP (ADACEL) 04/23/2010 Td 06/06/2002 Tdap 09/26/2020 Zoster RZV (Shingrix) 05/25/2023,03/24/2022 Family History Medical History Relation Name Comments Cancer Mother Dementia Mother Cancer, Breast Maternal Grandmother br ca age?? after menopause Cancer, Ovary Paternal Grandmother Cancer, Colon Negative Family History Cancer, Endometrial Negative Family History Diethylstilbestrol Exposure Negative Family History Relation Name Status Comments Father Patient is Unsu re if Mother Brother Alive Maternal Grandfather Maternal Grandmother Paternal Grandfather Paternal Grandmother Social History Tobacco Use Types Packs/Day Years Used Date Smoking Tobacco: Every Day Cigarettes 1 40.2 Started: 02/28/1979; Last attempted to quit: 05/30/2019 Smokeless Tobacco: Never Tobacco Cessation:Ready to Q uit: Not Asked; Counseling Given: Not Answered Comments:Smoking History Packs/day: quit 06/13/2023 Alcohol Use Standard Drinks/Week Comments No 0 (1 standard drink = 0.6 oz pur e alcohol) [facility] [employer] Answer Date Recorded In the past [address] [facility] [employer], gas, oil, or water Sensser threatened to shut off services in your [...] on file Sexual Orientation Not on file Last Filed Vital Signs Vital Sign Reading Time Taken Comments Blood Pressure 107/71 09/22/2023 8:00 AM CDT Pulse 50 09/21/2023 3:33 PM CDT Temperature 36.7 ??C (98.1 ??F) 09/22/2023 8:00 AM CD T Respiratory Rate 17 09/22/2023 8:00 AM CDT Oxygen Saturation 96% 09/22/2023 8:00 AM CDT Inhaled Oxygen Concentration - - Weight 74.4 kg (164 lb) 09/14/2023 6:01 AM CDT Height 165.1 cm (5' 5) 09/14/2023 6:01 AM CDT Body Mass Index 27.29 09/14/2023 6:01 AM CDT Plan of Treatment Upcoming Encounters Date Type Department Care Team (Late st Contact Info) Description 09/29/2023 8:40 AM CDT Appointment [facility] Neurosurgery/Ortho Spine [address] [place] [address] Nurse Visit 10/03/2023 11:00 AM CDT Appointment [facility] [address] [address] Svitlana Olmos MD [address] [address] 10/20/2023 10:30 AM CDT Appointment [facility]surgery[facility]tho Sp[facility] [address] [facility] [place] [address] 12/06/2023 10:20 AM CDT Appointment [facility] Neurosurgery/Ortho Spine [address] [facility] [place] [address] Jg Munguia MD [address] [place] [address] 01/03/2024 11:20 AM REAL ESTATE PROFESSOR Appointment [facility] [place] [address] [place] [address] [facility] [address] [place], [place] [phone] Health Maintenance Due Date Last Done Comments Pneumococcal (1 - PCV) 02/23/1970 HepB (1) 02/23/1983 Adult Preventive Visit 09/26/2021 09/26/2020, 2018 COVID-19 Vaccine ( season) 2022 02/17/2021, 03/13/2020, 02/20/2020 Mammogram 11/04/2022 11/04/2021, 04/01, 03/02/2017, Additional history exists Cervical Cancer Screening 10/17/20232018, 11/06/2014, 05/04/2012, Additional history exists Influenza (#1) 2023 01/28/2015, 12/29, 03/19/2013, Additional history exists Lung Cancer Screening 05/24/2024 05/25/2023, 022 Diabetes Screening- (based on age and BMI) 03/24/2025 03/24/2022, 02/04/2004 Colonoscopy 04/22/2027 04/22/2022, 05/29/2014 Cholesterol 09/18/2028 09/19/2023, 03/01, 05/04/2012, Additional history exists DTaP/Tdap/Td (3 - Tdap) 09/26/2030 09/27/19 21, 04/23/2010, 06/06/2002 Hep C Screening (Preventive Services) Completed 06/26/2003 HIV Screening (Preventive Services) Completed 07/30/2003 Zoster/Shingles Completed 05/25/2023, 03/24/2022 HepA Aged Out No longer eligi ble based on patient's age to complete this topic Hib Aged Out No longer eligi ble based on patient's age to complete this topic IPV (Polio) Aged Out No longer eligi ble based on patient's age to complete this topic MCV4 Aged Out No longer eligi ble based on patient's age to complete this topic Medical Devices Implanted Type Area Gas System Operator Device Identifier Shelf Expiration Date Model / Serial / Lot Bone Canc Crushed 15cc - [id number] Implanted:Qty : 1 on 09/14/2023 by Jg Munguia MD at [facility] [employer] N/A: SKULL Medtronic - Spincal[employer]raft Tech 11/24/2027 [id number] / [id number] / Cost Swivel Lk 5.5x19.1 - Req In Mult Of 5 - [id number] Implanted:Qty : 1 on 06/16/2023 by Allison Harkins MD at [facility] Right: SHOULDER Arthrex Inc 02/27/2027 AR-2323BC C / 0 / [id number] Cost Swivel Lk 5.5x19.1 - Req In Mult Of 5 - [id number] Implanted:Qty : 1 on 06/16/2023 by Allison Harkins MD at [facility] [employer] Right: SHOULDER Ar[employer]rex Inc 11/27/2026 AR-2323BC C / 0 / [id number] Button Fibertak System - [id number] Implanted:Qty : 1 on 06/16/2023 by Allison Harkins MD at [facility] DEVICE Right: SHOULDER Ar[employer]rex Inc 12/29/2027 AR-3680 / 0 / [id number] Adhesive Duraseal 5ml - B/5 - [id number] Implanted:Qty : 1 on 09/14/2023 by Jg Munguia MD at [facility] DEVICE N/A: BRAIN Integra Lifesciences 07/28/2024 [id number] / / [id number] Anshul Hydroset Xt 5cc - [id number] Implanted:Qty : 1 on 09/14/2023 by Jg Munguia MD at [facility] DEVICE N/A: SKULL Concepcion 01/09/2025 [id number] / / [id number] Plt Matrix Ti Ulp Strt 2h 12mm - [id number] Implanted:Qty : 4 on 09/14/2023 by Jg Munguia MD at [facility] DEVICE N/A: SKULL DePuy Synthes - CMF 04.502.06 2 / / Scr Matrix Sfdr 4mm - [id number] Implanted:Qty : 8 on 09/14/2023 by Jg Munguia MD at [facility] DEVICE N/A: SKULL DePuy Synthes - CMF [id number] 4.01 / / Graft Duragen Suturable 2x2 - [id number] Implanted:Qty : 1 on 09/14/2023 by Jg Munguia MD at [facility] XENOGRAFT N/A: BRAIN Integra Lifesciences 11/27/2024 [id number] / / [id number] Sut Tape Cost Fibertak Soft - [id number] Implanted:Qty : 1 on 06/16/2023 [facility] Right: SHOULDER Ar[employer] Inc 06/28/2027 AR-[id number] / 0 / [id number] Procedures Procedure Name Priority Date/Time Associated Diagnosis Comments COMPLETE BLOOD COUNT-W/DIFF Routine 09/27/2023 1:44 PM CDT Infection CBC AND DIFFERENTIAL PANEL Routine 09/27/2023 1:44 PM CDT Infection C-REACTIVE PROTEIN Routine 09/27/2023 1: 44 PM CDT Infection GLUCOSE, WHOLE BLOOD POCT Routine 09/22/2023 1:01 PM CDT INPATIENT TELEMETRY MONITORING Routine 09/22/2023 8:37 AM CDT GLUCOSE, WHOLE BLOOD POCT Routine 09/22/2023 7:31 AM CDT INPATIENT TELEMETRY MONITORING Routine 09/21/2023 11:02 PM CDT GLUCOSE, WHOLE BLOOD POCT Routine 09/21/2023 9:43 PM CDT INPATIENT TELEMETRY MONITORING Routine 09/21/2023 7:15 PM CDT GLUCOSE, WHOLE BLOOD POCT Routine 09/21/2023 5:04 PM CDT GLUCOSE, WHOLE BLOOD POCT Routine 09/21/2023 2:07 PM CDT INPATIENT TELEMETRY MONITORING Routine 09/21/2023 10:16 AM CDT GLUCOSE, WHOLE BLOOD POCT Routine 09/21/2023 8:12 AM CDT MAGNESIUM Routine 09/21/2023 6:29 AM CDT BASIC METABOLIC PANEL Routine 09/21/2023 6:29 AM CDT GLUCOSE, WHOLE BLOOD POCT Routine 09/20/2023 10:21 PM CDT INPATIENT TELEMETRY MONITORING Routine 09/20/2023 7:45 PM CDT GLUCOSE, WHOLE BLOOD POCT Routine 09/20/2023 3:23 PM CDT GLUCOSE, WHOLE BLOOD POCT Routine 09/20/2023 11:32 AM CDT INPATIENT TELEMETRY MONITORING Routine 09/20/2023 9:15 AM CDT GLUCOSE, WHOLE BLOOD POCT Routine 09/20/2023 7:42 AM CDT EXTRA LAVENDER TOP TUBE Routine 09/20/2023 6:39 AM CDT EXTRA TUBES Routine 09/20/2023 6:39 AM CDT LIVER PANEL(HEPATIC FUNCTION PANEL) Routine 09/20/2023 6:39 AM CDT GLUCOSE, WHOLE BLOOD POCT Routine 09/19/2023 10:59 PM CDT INPATIENT TELEMETRY MONITORING Routine 09/19/2023 8:16 PM CDT GLUCOSE, WHOLE BLOOD POCT Routine 09/19/2023 6:13 PM CDT EJECTION FRACTION Routine 09/19/2023 1:4 3 PM CDT CARDIAC ROUTINE ECHOCARDIOGRAM Discharge Decision 09/19/2023 1:43 PM CDT GLUCOSE, WHOLE BLOOD POCT Routine 09/19/2023 12:03 PM CDT ECG 12-LEAD ROUTINE(LAB PERFORM) STAT 09/19/2023 9:43 AM CDT ECG-ROUTINE 12 LEAD; INTRPT & REPRT STAT 09/19/2023 9:36 AM CDT GLUCOSE, WHOLE BLOOD POCT Routine 09/19/2023 9:05 AM CDT INPATIENT TELEMETRY MONITORING Routine 09/19/2023 8:13 AM CDT LIPID PANEL & DIRECT LDL (IF NEEDED) Add-On 09/19/2023 6:28 AM CDT TSH, SENSITIVE (WITH REFLEX) Add-On 09/19/2023 6:28 AM CDT COMPLETE BLOOD COUNT-NO DIFF Routine 09/19/2023 6:28 AM CDT BASIC METABOLIC PANEL Routine 09/19/2023 6:28 AM CDT PHOSPHORUS Routine 09/19/2023 6:28 AM CDT MAGNESIUM Routine 09/19/2023 6:28 AM CDT GLUCOSE, WHOLE BLOOD POCT Routine 09/18/2023 9:25 PM CDT MAGNESIUM Specified Time 09/18/2023 6:10 PM CDT GLUCOSE, WHOLE BLOOD POCT Routine 09/18/2023 4:01 PM CDT GLUCOSE, WHOLE BLOOD POCT Routine 09/18/2023 12:37 PM CDT INPATIENT TELEMETRY MONITORING Routine 09/18/2023 9:16 AM CDT COMPLETE BLOOD COUNT-NO DIFF Routine 09/18/2023 9:00 AM CDT BASIC METABOLIC PANEL Routine 09/18/2023 9:00 AM CDT PHOSPHORUS Routine 09/18/2023 9:00 AM CDT MAGNESIUM Routine 09/18/2023 9:00 AM CDT GLUCOSE, WHOLE BLOOD POCT Routine 09/18/2023 7:40 AM CDT INPATIENT TELEMETRY MONITORING Routine 09/18/2023 12:28 AM CDT GLUCOSE, WHOLE BLOOD POCT Routine 09/17/2023 9:54 PM CDT GLUCOSE, WHOLE BLOOD POCT Routine 09/17/2023 8:32 AM CDT COMPLETE BLOOD COUNT-NO DIFF Routine 09/17/2023 6:27 AM CDT BASIC METABOLIC PANEL Routine 09/17/2023 6:27 AM CDT PHOSPHORUS Routine 09/17/2023 6:27 AM CDT MAGNESIUM Routine 09/17/2023 6:27 AM CDT INPATIENT TELEMETRY MONITORING Routine 09/17/2023 1:00 AM CDT GLUCOSE, WHOLE BLOOD POCT Routine 09/16/2023 9:46 PM CDT MAGNESIUM Routine 09/16/2023 6:49 PM CDT GLUCOSE, WHOLE BLOOD POCT Routine 09/16/2023 4:31 PM CDT INPATIENT TELEMETRY MONITORING Routine 09/16/2023 3:26 PM CDT GLUCOSE, WHOLE BLOOD POCT Routine 09/16/2023 12:03 PM CDT GLUCOSE, WHOLE BLOOD POCT Routine 09/16/2023 8:00 AM CDT COMPLETE BLOOD COUNT-NO DIFF Routine 09/16/2023 6:29 AM CDT BASIC METABOLIC PANEL Routine 09/16/2023 6:29 AM CDT PHOSPHORUS Routine 09/16/2023 6:29 AM CDT MAGNESIUM Routine 09/16/2023 6:29 AM CDT GLUCOSE, WHOLE BLOOD POCT Routine 09/15/2023 9:08 PM CDT GLUCOSE, WHOLE BLOOD POCT Routine 09/15/2023 4:59 PM CDT GLUCOSE, WHOLE BLOOD POCT Routine 09/15/2023 12:47 PM CDT GLUCOSE, WHOLE BLOOD POCT Routine 09/15/2023 8:29 AM CDT INPATIENT TELEMETRY MONITORING Routine 09/15/2023 7:41 AM CDT COMPLETE BLOOD COUNT-NO DIFF Routine 09/15/2023 3:43 AM CDT BASIC METABOLIC PANEL Routine 09/15/2023 3:43 AM CDT PHOSPHORUS Routine 09/15/2023 3:43 AM CDT MAGNESIUM Routine 09/15/2023 3:43 AM CDT MR BRAIN W/WO IV CONT Routine 09/15/2023 2:36 AM CDT GLUCOSE, WHOLE BLOOD POCT Routine 09/15/2023 12:35 AM CDT INPATIENT TELEMETRY MONITORING Routine 09/14/2023 7:55 PM CDT GLUCOSE, WHOLE BLOOD POCT Routine 09/14/2023 7:55 PM CDT PHOSPHORUS STAT 09/14/2023 5:57 PM CDT MAGNESIUM STAT 09/14/2023 5:57 PM CDT POTASSIUM STAT 09/14/2023 5:57 PM CDT GLUCOSE, WHOLE BLOOD POCT Routine 09/14/2023 5:36 PM CDT A-LINE Routine 09/14/2023 2:31 PM CDT BASIC METABOLIC PANEL Routine 09/14/2023 1:50 PM CDT COMPLETE BLOOD COUNT-NO DIFF Routine 09/14/2023 1:50 PM CDT GLUCOSE, WHOLE BLOOD POCT Routine 09/14/2023 1:00 PM CDT SURGICAL PATHOLOGY Routine 09/14/2023 11:30 AM CDT Meningioma (HRC) GLUCOSE, WHOLE BLOOD POCT Routine 09/14/2023 9:[address] HEAD WO IV CONT STEALTH Routine 09/14/2023 7:45 AM CDT Meningioma (HRC) IMAGE GUIDANCE ADD ON NEURO (*) AM Admit 09/14/2023 7:32 AM CDT Meningioma (HRC) CRANIOTOMY EXCISION MASS BRAIN AM Admit 09/14/2023 7:32 AM CDT Meningioma (HRC) GLUCOSE, WHOLE BLOOD POCT Routine 09/14/2023 5:59 AM CDT EXTRA PINK/BANK TUBE Routine 09/14/2023 5:56 AM CDT ANTIBODY SCREEN Routine 09/14/2023 5:52 AM CDT BLOOD TYPE Routine 09/14/2023 5:52 AM CDT INR/PROTIME Routine 09/14/2023 5:52 AM CDT COMPLETE BLOOD COUNT-NO DIFF Routine 09/14/2023 5:52 AM CDT BASIC METABOLIC PANEL Routine 09/14/2023 5:52 AM CDT TYPE AND SCREEN Routine 09/14/2023 5:52 AM CDT EKG 09/14/2023 MR BRAIN W/WO IV CONT MAP STEALTH Routine 09/13/2023 10:53 AM CDT Meningioma (HRC) COMPLETE BLOOD COUNT-W/DIFF Routine 08/31/2023 11:06 AM CDT Preoperative examination CBC AND DIFFERENTIAL PANEL Routine 08/31/2023 11:06 AM CDT Preoperative examination MRSA/MSSA PRE-OP CULTURE Routine 08/31/2023 11:03 AM CDT Preoperative examination ECG 12 LEAD OUTPATIENT Routine 08/31/2023 10:50 AM CDT Preoperative examination 3 RESTORATIVE PROCEDURE BY REPORT Routine 07/28/2023 2:00 PM CDT Fracture of crown of tooth limited to enamel layer FILM-PERIAPICAL FIRST Routine 07/28/2023 2:00 PM CDT Fracture of crown of tooth limited to enamel layer LIMITED ORAL EVALUATION Routine 07/28/2023 2:00 PM CDT Fracture of crown of tooth limited to enamel layer US VENOUS RIGHT UPPER EXTREM DOPPLER STAT 07/12/2023 6:46 PM CDT Arm mass, right CT CHEST WO IV CONT LUNG SCREENING Routine 05/25/2023 9:02 AM CDT Stopped smoking with greater than 20 pack year history ENDOSCOPY, COLON, SCREENING/DIAGNOSTIC Routine 04/22/2022 10:39 AM REAL ESTATE PROFESSOR Screen for colon cancer HGB A1C Routine 03/24/2022 11:33 AM REAL ESTATE PROFESSOR Routine general medical examination at health care facility MM MAMMOGRAM SCREENING BILAT W 3D VASILIY W CAD Routine 11/04/2021 9:10 AM CDT Visit for screening mammogram PAP TEST Routine 10/16/2018 11:40 AM CDT Cervical cancer screening HIV ANTIBODY Routine 07/30/2003 12:02 PM CDT HEPATITIS C ANTIBODY, WITH REFLEX Routine 06/26/2003 4:06 PM CDT from Last 3 Months or Most Recently Relevant to Health Maintenance Results * (ABNORMAL) Complete Blood Count-W/Diff (09/27/2023 1:44 PM CDT) Only the most recent of2 resultswithin the time period is included. WBC 11.2(H) 3.5 - 10.5 x10(9)/L 09/27/2023 6:01 PM [facility] RBC 4.22 3.90 - 5.03 x10(12)/L 09/27/2023 6:01 PM [facility] Hemoglobin 11.8(L) 12.0 - 15.5 g/dL 09/27/2023 6:01 PM [facility] HCT 37.5 34.9 - 44.5 % 09/27/2023 6:01 [facility] MCV 88.9 80.0 - 100.0 fL 09/27/2023 6:01 PM [facility] MCH 28.0 27.6 - 33.3 pg 09/27/2023 6:01 PM [facility] MCHC 31.5 31.5 - 35.2 g/dL 09/27/2023 6:01 PM [facility] RDW 14.1 11.9 - 15.5 % 09/27/2023 6:01 PM [facility] Platelets 258 150 - 450 x10(9)/L 09/27/2023 6:01 [facility] Automated NRBC 0 <=0 /100 WBC 09/27/2023 6:01 [facility] Neutrophil Absolute 6.6 1.7 - 7.0 10(9)/L 09/27/2023 6:01 PM [facility] Lymphocyte Absolute 2.9 1.0 - 4.8 10(9)/L 09/27/2023 6:01 [facility] Monocyte Absolute 1.1(H) 0.2 - 0.9 10(9)/L 09/27/2023 6:01 [facility] Eosinophil Absolute 0.3 0.0 - 0.5 10(9)/L 09/27/2023 6:01 [facility] Basophil Absolute 0.1 0.0 - 0.3 10(9)/L 09/27/2023 6:01 PM [facility] Immature Granulocyte % 2.6(H) 0.0 - 0.5 % 09/27/2023 6:01 PM CDT [facility] Blood Venipuncture / Unknown 09/27/2023 1:44 PM CDT 09/27/2023 1:44 PM CDT Jg Munguia MD LAB_1 Performing Organization Address City/[facility]/ZIP Co de Phone Number [address] * (ABNORMAL) C-Reactive Protein (09/27/2023 1:44 PM CDT) [facility] C-Reactive Protein 6.0(H) 0.0 - 0.5 mg/dL 09/27/2023 7:37 PM CDT [facility] Blood Venipuncture / Unknown 09/27/2023 1:44 PM CDT 09/27/2023 1:44 PM CDT Jg Munguia MD LAB_1 Performing Organization Address [facility] Co de Phone Number REPLACED BY [facility] [address] * Glucose, Whole Blood POCT (09/22/2023 1:01 PM CDT) Only the most recent of34 resultswithin the time period is included. [facility] Glucose, Whole Blood 89 70 - 180 mg/dL 09/22/2023 1:03 PM CDT [facility] Performing Location RCLab [id number] 09/22/2023 1:03 PM CDT [facility] Blood 09/22/2023 1:01 PM CDT 09/22/2023 1:03 PM CDT Jg Munguia MD LAB_1 Performing Organization Address City/[facility] Co de Phone Number [address] * INPATIENT TELEMETRY MONITORING (09/22/2023 8:37 AM CDT) Only the most recent of14 resultswithin the time period is included. Pathologist [facility] TELE P-R INTERVAL 0.21 [facility]USE [facility] TELE QRS DURATION 0.08 [facility]USE [facility] TELE R-R INTERVAL 1.09 MUSE [facility] TELE INTERPRETATION 1 AV Block sinus jluis Prieto [facility] 09/22/2023 8:37 AM CDT Narrative [facility] - 09/22/2023 8:51 AM CDT 1 AV Block ??sinus jluis Prieto Interface Provider EKG [facility] [address] [place] [address] * Basic Metabolic Panel (09/21/2023 6:29 AM CDT) Only the most recent of8 resultswithin the time period is included. [facility] Sodium 136 136 - 145 mmol/L 09/21/2023 7:08 AM [facility] Potassium 4.5 3.5 - 5.1 mmol/L 09/21/2023 7:08 AM [facility] Chloride 104 98 - 109 mmol/L 09/21/2023 7:08 AM [facility] CO2 25 20 - 29 mmol/L 09/21/2023 7:08 AM [facility] Anion Gap 7 6 - 16 mmol/L 09/21/2023 7:08 AM [facility] Calcium 9.5 8.4 - 10.4 mg/dL 09/21/2023 7:08 AM [facility] BUN 17 7 - 26 mg/dL 09/21/2023 7:08 AM [facility] Creatinine 0.61 0.55 - 1.02 mg/dL 09/21/2023 7:08 AM [facility] Glucose 94 70 - 100 mg/dL 09/21/2023 7:08 AM [facility] Comment:The given reference range is for the fasting state. Non-fasting reference range for glucose is 70 - 180 mg/dL. GFR, Estimated >60 >60 mL/min/1.7 3m2 09/21/2023 7:08 AM [facility] Blood Venipuncture / Unknown 09/21/2023 6:29 AM CDT 09/21/2023 6:35 AM CDT Juan Dudley MD LAB_1 Performing Organization Address [facility]/ZIP Co de Phone Number [address] * Magnesium (09/21/2023 6:29 AM CDT) Only the most recent of9 resultswithin the time period is included. Magnesium 2.1 1.6 - 2.6 mg/dL 09/21/2023 7:08 AM CDT [facility] Blood Venipuncture / Unknown 09/21/2023 6:29 AM CDT 09/21/2023 6:35 AM CDT Juan Dudley MD LAB_1 Performing Organization Address [facility] Co de Phone Number [address] * Extra Lavender top tube (09/20/2023 6:39 AM CDT) Extra Lavender Top Drawn Specimen will be held for 3 days 09/20/2023 8:00 AM CDT [facility] Blood Venipuncture / Unknown 09/20/2023 6:39 AM CDT 09/20/2023 6:59 AM CDT Jg Munguia MD LAB_1 Performing Organization Address [facility] Co de Phone Number [address] * Liver Panel(Hepatic Function Panel) (09/20/2023 6:39 AM CDT) Alkaline Phosphatase 71 40 - 150 U/L 09/20/2023 7:39 AM CDT [facility] Bilirubin, Total 0.2 0.2 - 1.2 mg/dL 09/20/2023 7:39 AM CDT [facility] Bilirubin, Direct 0.1 0.0 - 0.5 mg/dL 09/20/2023 7:39 AM CDT [facility] AST (SGOT) 10 10 - 40 U/L 09/20/2023 7:39 AM CDT [facility] ALT (SGPT) 28 <=55 U/L 09/20/2023 7:39 AM [facility] Protein, Total 6.5 6.4 - 8.3 g/dL 09/20/2023 7:39 AM [facility] Albumin 3.5 3.5 - 5.0 g/dL 09/20/2023 7:39 AM [facility] Blood Venipuncture / Unknown 09/20/2023 6:39 AM CDT 09/20/2023 6:58 AM CDT Chiquita Smith MD LAB_1 Performing Organization Address City/[facility]/ZIP Co de Phone Number [facility] [address] [place], [place] [id number] [place] [address] * EJECTION FRACTION (09/19/2023 1:43 PM CDT) EF 70 % PROSOLV EF test type ECHO [facility] 09/19/2023 1:43 PM CDT Chiquita Smith MD [facility] CATH LA B/RH Performing Organization Address City/[facility]/ZIP Co de Phone Number [facility] [address] [place] [address] * Cardiac Routine Echocardiogram (09/19/2023 1:43 PM CDT) 09/19/2023 1:43 PM CDT Narrative [facility] - 09/19/2023 2:45 PM CDT Summary ??1. Patient is bradycardic in the 40's during the study. ??2. Normal LV size with normal wall thickness. Calculated biplane LVEF 70%. No regional wall motion abnormalities. (Normal function). Normal diastolic function. ??3. Normal RV size with normal systolic function. ??4. No significant valvular abnormalities. ??5. A prior study is not available for comparison. Report Signatures Finalized by Sherice Bautista on 09/19/2023 02:45 PM Procedure Note Sherice Bautista MD - 09/19/2023 Summary 1. Patient is bradycardic in the 40's during the study. 2. Normal LV size with normal wall thickness. Calculated biplane LVEF70%. No regional wall motion abnormalities. (Normal function). Normaldiastolic function. 3. Normal RV size with normal systolic function. 4. No significant valvular abnormalities. 5. A prior study is not available for comparison. Report Signatures Finalized by Sherice Bautista on 09/19/2023 02:45 PM Chiquita Smith MD [facility]ENTER ECHO/RH Performing Organization Address [facility]/ZIP Co de Phone Number [facility] [address] [place] [address] * ECG 12-Lead Routine (Lab perform) (09/19/2023 9:43 AM CDT) EKG Completed 09/19/2023 12:00 PM CDT [facility] Other Specimen Type Non-blood Collection / Unknown 09/19/2023 9:43 AM CDT 09/19/2023 10:30 AM CDT Chiquita Smith MD LAB_1 Performing Organization Address [facility]/ZIP Co de Phone Number [facility] [address] * Ecg 12-Lead Routine (MUSE) (09/19/2023 9:36 AM CDT) Ventricular Rate 53 BPM MUSE [facility] Atrial Rate 53 BPM MUSE [facility] P-R Interval 146 ms MUSE [facility] QRS Duration 76 ms MUSE [facility] QT 522 ms MUSE [facility] QTc 489 ms MUSE [facility] P Supai 27 degrees MUSE G[facility] R Supai 1 degrees MUSE G[facility] T Supai 27 degrees MUSE [facility] 09/19/2023 9:36 AM CDT Narrative MUSE [facility] - 09/19/2023 10:23 AM CDT Sinus bradycardia Minimal voltage criteria for LVH, may be normal variant Cannot rule out Inferior infarct (cited on or before 26-DEC-2019) Abnormal ECG When compared with ECG of 31-AUG-2023 10:50, PA interval has decreased Confirmed by Anaid Garcia ([id number]) on 09/19/2023 10:23:02 AM Procedure Note Anaid Garcia MD - 09/19/2023 Sinus bradycardia Minimal voltage criteria for LVH, may be normal variant Cannot rule out Inferior infarct (cited on or before 26-DEC-2019) Abnormal ECG When compared with ECG of 31-AUG-2023 10:50, PA interval has decreased Confirmed by Anaid Garcia ([id number]) on 09/19/2023 10:23:02 AM Chiquita Smith MD EKG Performing Organization Address City/[facility]/ZIP Co de Phone Number [facility] [address] [place] [phone] * (ABNORMAL) Lipid Panel & Direct LDL (if Needed) (09/19/2023 6:28 AM CDT) Pathologist [facility] Cholesterol 186 0 - 199 mg/dL 09/19/2023 10:55 PM CDT [facility] Triglyceride 215(H) <=149 mg/dL 09/19/2023 10:55 PM T [facility] HDL Cholesterol 37(L) >=40 mg/dL 10:55 PM CDT [facility] LDL, Calculated 106 <130 mg/dL 4 10:55 PM T [facility] Non HDL Chol, Calculated 149 <=159 mg/dL 09/19/2023 10:55 PM T [facility] Cholesterol/HDL Ratio 5.0 <=5.0 09/19/2023 10:55 PM T [facility] Blood Venipuncture / Unknown 09/19/2023 6:28 AM CDT 09/19/2023 6:59 AM CDT Chiquita Smith MD LAB_1 Performing Organization Address [facility]/ZIP Co de Phone Number [address] [address], [facility] * (ABNORMAL) Complete Blood Count-No Diff (09/19/2023 6:28 AM CDT) Only the most recent of7 resultswithin the time period is included. WBC 10.6(H) 3.5 - 10.5 x10(9)/L 09/19/2023 7:12 AM [facility] RBC 4.49 3.90 - 5.03 x10(12)/L 09/19/2023 7:12 AM [facility] Hemoglobin 12.7 12.0 - 15.5 g/dL 09/19/2023 7:12 AM [facility] HCT 38.3 34.9 - 44.5 % 09/19/2023 7:12 AM [facility] MCV 85.3 80.0 - 100.0 fL 09/19/2023 7:12 AM [facility] MCH 28.3 27.6 - 33.3 pg 09/19/2023 7:12 AM [facility] MCHC 33.2 31.5 - 35.2 g/dL 09/19/2023 7:12 AM [facility] RDW 13.2 11.9 - 15.5 % 09/19/2023 7:12 AM [facility] Platelets 266 150 - 450 x10(9)/L 09/19/2023 7:12 AM [facility] Automated NRBC 0 <=0 /100 WBC 09/19/2023 7:12 AM [facility] Blood Venipuncture / Unknown 09/19/2023 6:28 AM CDT 09/19/2023 6:59 AM CDT Sherman Trivedi MD LAB_1 [place] [address], [facility] * TSH with reflex to fT4 (not for treatment monitoring) (09/19/2023 6:28 AM CDT) TSH, Reflex 0.92 0.30 - 4.50 uIU/mL 09/19/2023 11:13 PM [facility] Blood Venipuncture / Unknown 09/19/2023 6:28 AM CDT 09/19/2023 6:59 AM CDT Chiquita Smith MD LAB_1 [facility] [address] * Phosphorus (09/19/2023 6:28 AM CDT) Only the most recent of6 resultswithin the time period is included. Phosphorus 3.2 2.3 - 4.7 mg/dL 09/19/2023 7:36 AM CDT [facility] Blood Venipuncture / Unknown 09/19/2023 6:28 AM CDT 09/19/2023 6:59 AM CDT Sherman Trivedi MD LAB_[address] * MR Brain W/WO IV Cont (09/15/2023 2:36 AM CDT) Anatomical Region Laterality Modality Head Magnetic Resonan ce 09/15/2023 2:36 AM CDT Narrative 09/15/2023 3:14 AM CDT EXAM: MR BRAIN W/WO IV CONT LOCATION: [facility] DATE: 09/15/2023 INDICATION: S/p eyebrow crani for meningioma resection, eval post-op COMPARISON: MRI brain September 13, 2023. CONTRAST: GADOBUTROL 1 MMOL/ML IV SOLN 7.5 mL TECHNIQUE: Routine multiplanar multisequence head MRI without and with intravenous contrast. 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 Thin rind of enhancement marginates resection cavity, likely reactive. No evidence for residual tumor. Small amount of cytotoxic edema in the adjacent right greater than left frontal lobes. Vasogenic edema in the right frontal lobe is unchanged. Small volume postoperative pneumocephalus. Mild diffuse pachymeningeal enhancement, likely postoperative. No additional diffusion restricting abnormalities. No hydrocephalus. Major intracranial flow voids are preserved. Presumed surgical packing within the midline frontal calvarium. Otherwise calvarium is unremarkable. Small amount of right scalp edema. IMPRESSION: 1. ??Postoperative changes of planum sphenoidale meningioma resection. No evidence for residual tumor. 2. ??Small amount of cytotoxic edema within the right greater than left frontal lobes adjacent to the resection cavity. Procedure Note Leander Lutz MD - 09/15/2023 EXAM: MR BRAIN W/WO IV CONT LOCATION: [facility] DATE: 09/15/2023 INDICATION: S/p eyebrow crani for meningioma resection, eval post-op COMPARISON: MRI brain September 13, 2023. CONTRAST: GADOBUTROL 1 MMOL/ML IV SOLN 7.5 mL TECHNIQUE: Routine multiplanar multisequence head MRI without and withintravenous contrast. FINDINGS: Midline frontal craniotomy for resection of previously demonstrated planumsphenoidale meningioma. Thin rind of enhancement marginates resectioncavity, likely reactive. No evidence for residual tumor. Small amount ofcytotoxic edema in the adjacent right greater than left frontal lobes.Vasogenic edema in the right frontal lobe is unchanged. Small volumepostoperative pneumocephalus. Mild diffuse pachymeningeal enhancement,likely postoperative. No additional diffusion restricting abnormalities. No hydrocephalus. Majorintracranial flow voids are preserved. Presumed surgical packing withinthe midline frontal calvarium. Otherwise calvarium is unremarkable. Smallamount of right scalp edema. IMPRESSION: 1. Postoperative changes of planum sphenoidale meningioma resection. Noevidence for residual tumor. 2. Small amount of cytotoxic edema within the right greater than leftfrontal lobes adjacent to the resection cavity. Hina Nielson PA-C RAD MRI * Potassium (09/14/2023 5:57 PM CDT) Potassium 4.1 3.5 - 5.1 mmol/L 09/14/2023 7:20 PM CDT [facility] Blood Arterial Line / Unknown 09/14/2023 5:57 PM CDT 09/14/2023 6:03 PM CDT Jg Munguia MD LAB_[address] [address], [facility] * A-LINE (09/14/2023 2:31 PM CDT) Narrative EXTERNAL RESULTS - 09/14/2023 2:31 PM CDT Yanique Flores MD ? 09/14/2023 ??2:31 PM A-Line Performed by: Yanique Flores MD Authorizing/Supervising provider: ??Yanique Flores MD Patient Location: ??OR Indication: continuous blood pressure monitoring ?? Written or Verbal consent obtained: informed consent obtained Inserted by: ??Anesthesiologist Number of attempts: 1 Procedure Detail: ??Catheter Type: ??Arrow ??Catheter Size: ??20 gauge ??Catheter Length: 12 cm Skin Prep: ??Chloraprep ??Ultrasound Guided?: No ?? Laterality: ??Left Site: ??Radial artery Line Secured: ??Suture, tape and Tegaderm Antimicrobial dressing applied: Yes ?? Maximal sterile barriers: all elements of maximal sterile barrier technique followed.. Events: patient tolerated procedure well with no complications ?? Comments: Arterial line placed after anesthesia start but prior to induction of anesthesia: ??No Yanique Flores MD [facility] PROCEDURES EXTERNAL RESULTS * Surgical Path (09/14/2023 11:30 AM CDT) Case Report Surgical Pathology ?Case: [id number] ? Authorizing Provider: ??Jg Munguia MD ?Collected: ? 09/14/2023 1130 ? Ordering Location: ? Operating Room ?Received: ?09/14/2023 1136 ? Pathologist: ? Bella Medina MD ? Specimen: ?Brain, Anterior Skull Based Meningioma ? 09/15/2023 2:51 PM [facility] FINAL DIAGNOSIS A. Brain, anterior skull based tumor, excision: Meningioma, WHO grade 1 Comment: The tumor cells are strongly positive for PA immunohistochemical stain and are negative for ER. 09/15/2023 2:51 PM [facility] Clinical Information Meningioma (HRC) 09/15/2023 2:51 PM [facility] Microscopic Description Microscopic examination is performed. 09/15/2023 2:51 PM [facility] Special Stains The stain controls have been reviewed and stain appropriately. 09/15/2023 2:51 PM [facility] Gross Description A: The specimen is received in formalin and labeled with the patient's name and Brain, Anterior Skull Based Meningioma. The specimen consists of 3.8 x 2.1 x 0.7 cm aggregate of pink-red, irregular soft tissue fragments with cautery. The specimen was excised at 11:30 AM, 09/14/2023 and placed into formalin at 12:01 PM, 09/14/2023. Media Production Support Manager sections are submitted in 7 cassettes. 09/15/2023 2:51 PM [facility] Embedded Images 09/15/2023 2:51 PM [facility] Tissue SPECIMEN FROM BRAIN / Unknown 09/14/2023 11:30 AM CDT 09/14/2023 11:36 AM CDT Jg Munguia MD LAB PATHOLOGY Performing Organization Address City/State/[facility] Co de Phone Number [address] [address], [facility] * CT Head WO IV Cont Stealth (09/14/2023 7:45 AM CDT) Anatomical Region Laterality Modality Head Computed Tomogra phy 09/14/2023 7:45 AM CDT Narrative 09/14/2023 2:37 PM CDT EXAM: CT HEAD WO IV CONT STEALTH LOCATION: [facility] DATE: 09/14/2023 INDICATION: Plan for eyebrow craniotomy for resection of meningioma, Benign neoplasm of meninges, unspecified COMPARISON: 09/13/2023 MRI brain. TECHNIQUE: Routine CT Head without IV contrast. Multiplanar reformats. Dose reduction techniques were used. FINDINGS: INTRACRANIAL CONTENTS: Unchanged presumed planum sphenoidale meningioma. Unchanged resultant mass effect and associated vasogenic edema. No CT evidence of acute infarct. No abnormal parenchymal attenuation. Normal ventricles and sulci. VISUALIZED ORBITS/SINUSES/MASTOIDS: No intraorbital abnormality. No paranasal sinus mucosal disease. No middle ear or mastoid effusion. BONES/SOFT TISSUES: No acute abnormality. IMPRESSION: 1. ??Unchanged planum sphenoidale meningioma. Procedure Note Glynn Medina MD - 09/14/2023 EXAM: CT HEAD WO IV CONT STEALTH LOCATION: [facility] DATE: 09/14/2023 INDICATION: Plan for eyebrow craniotomy for resection of meningioma,Benign neoplasm of meninges, unspecified COMPARISON: 09/13/2023 MRI brain. TECHNIQUE: Routine CT Head without IV contrast. Multiplanar reformats.Dose reduction techniques were used. 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 No CTevidence of acute infarct. No abnormal parenchymal attenuation. Normalventricles and sulci. VISUALIZED ORBITS/SINUSES/MASTOIDS: No intraorbital abnormality. Noparanasal sinus mucosal disease. No middle ear or mastoid effusion. BONES/SOFT TISSUES: No acute abnormality. IMPRESSION: 1. Unchanged planum sphenoidale meningioma. Jg Munguia MD RAD CT * Extra Dunlap/Bank Tube (09/14/2023 5:56 AM CDT) Extra Dunlap/Bank Tube Drawn Received in BB 09/14/2023 8:08 AM CDT [facility] Blood Venipuncture / Unknown 09/14/2023 5:56 AM CDT 09/14/2023 8:07 AM CDT Bella Medina MD LAB_1 Performing Organization Address [facility] Co de Phone Number [facility] [address] * Antibody Screen (09/14/2023 5:52 AM CDT) Antibody Screen Interpretation Negative 09/14/2023 7:00 AM CDT [facility] Blood Venipuncture / Unknown 09/14/2023 5:52 AM CDT 09/14/2023 6:09 AM CDT Mike Davis PA-C LAB_1 Performing Organization Address [facility] Co de Phone Number [facility] [address] [place] [address] * Blood Type (09/14/2023 5:52 AM CDT) ABO O 09/14/2023 7:00 AM CDT [facility] RH Positive 09/14/2023 7:00 AM CDT [facility] Blood Venipuncture / Unknown 09/14/2023 5:52 AM CDT 09/14/2023 6:09 AM CDT Mike Davis PA-C LAB_1 Performing Organization Address [facility] de Phone Number [facility] [address] * INR/Protime (09/14/2023 5:52 AM CDT) Protime 13.0 11.8 - 14.6 Seconds 09/14/2023 6:28 AM CDT [facility] INR 1.0 0.9 - 1.1 09/14/2023 6:28 AM CDT [facility] Blood Venipuncture / Unknown 09/14/2023 5:52 AM CDT 09/14/2023 6:10 AM CDT [facility] - 09/14/2023 6:28 AM CDT If you take an anticoagulant medicine called warfarin, your doctor or clinician may establish a normal range for you that is different from the baseline range shown. Mike Davis PA-C LAB_1 [facility] [address] [place] [address], [facility] * EKG (09/14/2023) Interface Provider EKG * MR Brain W/WO IV Cont Map Stealth (09/13/2023 10:53 AM CDT) Anatomical Region Laterality Modality Head Magnetic Resonan ce 09/13/2023 10:5 3 AM CDT Narrative 09/14/2023 7:45 AM CDT EXAM: MR BRAIN WITHOUT AND WITH IV CONTRAST MAP STEALTH LOCATION: [facility] DATE: 09/13/2023 INDICATION: Plan for eyebrow craniotomy for resection of meningioma on 08/15/2023. Benign neoplasm of meninges, unspecified. COMPARISON: MRI 06/01/2023. CONTRAST: 10 mL Gadavist. TECHNIQUE: Multiplanar multisequence head MRI without and with intravenous contrast with dedicated surgical/therapy planning sequences. FINDINGS: INTRACRANIAL CONTENTS: The 3.0 cm AP x 3.0 cm TV x 2.7 cm SI avidly enhancing extra-axial mass lesion along the planum sphenoidale remains stable in size and configuration. There is no significant progression of mass effect upon the inferomedial temporal lobes. Surrounding vasogenic edema in the right frontal lobe remains unchanged, as well. As before, the enhancing lesion demonstrates marked CBV elevation. No new enhancing lesions are demonstrated. Brain parenchymal volume is unremarkable for age. No evidence for hydrocephalus. Major intracranial flow- voids appear preserved. The sella is unremarkable for technique. The cerebellar tonsils are appropriately positioned. OTHER: The calvarium, extracranial soft tissues and orbits appear intact. No significant paranasal sinus mucosal disease or mastoid fluid. IMPRESSION: 1. ??Exam performed for surgical/therapy planning purposes as above. 2. ??Stable presumed planum sphenoidale meningioma measuring approximately 3 cm. 3. ??No significant interval progression of mass effect or right frontal lobe edema. Procedure Note Timur Méndez MD - 09/14/2023 EXAM: MR BRAIN WITHOUT AND WITH IV CONTRAST MAP STEALTH LOCATION: [facility] DATE: 09/13/2023 INDICATION: Plan for eyebrow craniotomy for resection of meningioma on08/15/2023. Benign neoplasm of meninges, unspecified. COMPARISON: MRI 06/01/2023. CONTRAST: 10 mL Gadavist. TECHNIQUE: Multiplanar multisequence head MRI without and with intravenouscontrast with dedicated surgical/therapy planning sequences. FINDINGS: INTRACRANIAL CONTENTS: The 3.0 cm AP x 3.0 cm TV x 2.7 cm SI avidlyenhancing extra-axial mass lesion along the planum sphenoidale remainsstable in size and configuration. There is no significant progression ofmass effect upon the inferomedial temporal lobes. Surrounding vasogenicedema in the right frontal lobe remains unchanged, as well. As before, theenhancing lesion demonstrates marked CBV elevation. No new enhancinglesions are demonstrated. Brain parenchymal volume is unremarkable forage. No evidence for hydrocephalus. Major intracranial flow- voids appearpreserved. The sella is unremarkable for technique. The cerebellar tonsilsare appropriately positioned. OTHER: The calvarium, extracranial soft tissues and orbits appear intact.No significant paranasal sinus mucosal disease or mastoid fluid. IMPRESSION: 1. Exam performed for surgical/therapy planning purposes as above. 2. Stable presumed planum sphenoidale meningioma measuring approximately3 cm. 3. No significant interval progression of mass effect or right frontallobe edema. Jg Munguia MD RAD MRI * MRSA MSSA Preop Culture - Staph Aureus Culture (08/31/2023 11:03 AM CDT) Pathologist [facility] Staph aureus Culture (SACUL) No Staphylococcus aureus Isolated 09/01/2023 2:32 PM CDT [facility] Swab (Source Required) ENTIRE ANTERIOR NARIS / Unknown Non-blood Collection / Unknown 08/31/2023 11:03 AM CDT 08/31/2023 11:06 AM CDT Svitlana Olmos MD LAB_[address] [address], [facility] * ECG 12 Lead Outpatient (08/31/2023 10:50 AM CDT) Ventricular Rate 61 BPM MUSE GHP Atrial Rate 61 BPM MUSE GHP P-R Interval 214 ms MUSE GHP QRS Duration 84 ms MUSE GHP QT 466 ms MUSE GHP QTc 469 ms MUSE GHP P Supai 57 degrees MUSE GHP R Supai 1 degrees MUSE GHP T Supai 34 degrees MUSE GHP 08/31/2023 10:5 0 AM CDT Narrative MUSE P - 08/31/2023 11:21 AM CDT Sinus rhythm with 1st degree A-V block Inferior infarct (cited on or before 26-DEC-2019) Abnormal ECG When compared with ECG of 26-DEC-2019 18:40, No significant change was found Confirmed by China Sweet ([id number]) on 08/31/2023 11:21:51 AM Procedure Note China Sweet MD - 08/31/2023 Sinus rhythm with 1st degree A-V block Inferior infarct (cited on or before 26-DEC-2019) Abnormal ECG When compared with ECG of 26-DEC-2019 18:40, No significant change was found Confirmed by China Sweet ([id number]) on 08/31/2023 11:21:51 AM Svitlana Olmos MD PN ECG ORDERABLES Performing Organization Address City/State/[facility] Co de Phone Number [facility] [address] [place] [address] * US VENOUS RIGHT UPPER EXTREM DOPPLER (07/12/2023 6:46 PM CDT) Anatomical Region Laterality Modality Vascular, Arm Ultrasound 07/12/2023 6:08 PM CDT Impressions 07/12/2023 6:49 PM CDT COMPARISON: ??None. CLINICAL HISTORY: ??lump on right arm after surgery FINDINGS: ??The deep venous system of the right upper extremity was visualized using color-flow Doppler technique. ??The internal jugular, subclavian, axillary and brachial veins were compressible where sampled. ??Normal venous velocity signals were noted in the internal jugular and subclavian veins. ??Cephalic and basilic veins were compressible. Skin thickening and subcutaneous edema in the area of the lump indicated by the patient IMPRESSION: 1. No evidence of deep venous thrombosis. ?? 2. Skin thickening and subcutaneous edema in the area of clinical concern, correlate clinically for cellulitis. No drainable fluid collection. Narrative Procedure Note Chetna Dewitt MD - 07/12/2023 IMPRESSION COMPARISON: None. CLINICAL HISTORY: lump on right arm after surgery FINDINGS: The deep venous system of the right upper extremity wasvisualized using color-flow Doppler technique. The internal jugular,subclavian, axillary and brachial veins were compressible where sampled.Normal venous velocity signals were noted in the internal jugular andsubclavian veins. Cephalic and basilic veins were compressible. Skinthickening and subcutaneous edema in the area of the lump indicated by thepatient IMPRESSION: 1. No evidence of deep venous thrombosis. 2. Skin thickening and subcutaneous edema in the area of clinical concern,correlate clinically for cellulitis. No drainable fluid collection. Doe Cuellar PA-C RAD US * CT Chest WO IV Cont Lung Screening (05/25/2023 9:02 AM CDT) Anatomical Region Laterality Modality Chest, Lung Computed Tomogra phy 05/25/2023 8:57 AM CDT Impressions 05/25/2023 9:41 AM CDT COMPARISON: 01/12/2022 TECHNIQUE: Images through the chest were obtained without contrast using a low dose lung screening technique. FINDINGS: CHEST WALL AND LOWER NECK: Unremarkable. HEART AND VASCULATURE: Normal heart size. No pericardial effusion. No thoracic aortic aneurysm. No significant coronary artery calcifications. MEDIASTINUM: Unremarkable esophagus. No adenopathy. LUNGS AND PLEURAL SPACE: Mild emphysematous changes. Patent central airways. No new or enlarging pulmonary nodules. Stable sub-4 mm pulmonary nodule right upper lobe on series 3 image 34. UPPER ABDOMEN: Unremarkable. BONES: Unremarkable. IMPRESSION: 1. No acute thoracic findings. 2. Stable sub-4 mm pulmonary nodule in the right upper lobe. ACR Lung-RADS Category ACR Lung-RADS Category 2: Benign. Continue annual screening with low-dose chest CT in 12 months (CT Chest WO IV Cont Lung Screening). Svitlana Olmos MD RAD CT * Endoscopy, Colon, Screening/Diagnostic (04/22/2022 10:39 AM REAL ESTATE PROFESSOR) 04/22/2022 10:3 9 AM REAL ESTATE PROFESSOR Narrative PN PROVATION - 04/22/2022 10:39 AM REAL ESTATE PROFESSOR Patient Name: Ruthann Rosas Procedure Date: 04/22/2022 10:39 AM Date of : 1965 Admit Type: Outpatient Age: 57 Gender: Female Note Status: Finalized Attending MD: Bakari Grande , Procedure: ? Colonoscopy Indications: ? Colon cancer screening in patient ? at increased risk: Family history ? of colon polyps in multiple ? 1st-degree relatives, Last ? colonoscopy: May 2014 ? (hyperplastic polyps in the rectum). Providers: ? Sherice Berman Referring MD: ?Svitlana Olmos MD Medicines: ? Midazolam 3 mg IV, Fentanyl 50 ? micrograms IV, See the other ? procedure note for documentation of ? the additional administered ? medications Complications: ? No immediate complications. Procedure: ? After I obtained informed consent, ? the scope was passed under direct ? vision. Throughout the procedure, ? the patient's blood pressure, ? pulse, and oxygen saturations were ? monitored continuously. The ? [id number] was introduced through ? the anus and advanced to the ? terminal ileum, with identification ? of the appendiceal orifice and IC ? valve. The colonoscopy was ? performed without difficulty. The ? patient tolerated the procedure ? well. The quality of the bowel ? preparation was good. Findings: ? Hemorrhoids were found on perianal exam. ? The terminal ileum appeared normal. ? Retroflexion in the right colon was performed. ? Scattered small and large-mouthed diverticula were ? found in the sigmoid colon, descending colon, ? transverse colon and ascending colon. ? Four flat polyps were found in the rectum. The polyps ? were 3 to 5 mm in size. These polyps were removed ? with a cold snare. Resection and retrieval were ? complete. Verification of patient identification for ? the specimen was done. Estimated blood loss was ? minimal. ? The exam was otherwise normal throughout the examined ? colon. Moderate Sedation: ? Moderate (conscious) sedation was administered by the ? endoscopy nurse and supervised by the endoscopist. ? The following parameters were monitored: oxygen ? saturation, heart rate, blood pressure, and response ? to care. Total physician intraservice time was 15 ? minutes. ? This time is the duration from the initial medication ? administration until the manager analytical assists with ? initial maneuvers (biopsy / polypectomy / etc.), or ? if no maneuvers are performed, until the endoscopist ? leaves the room. Impression: ?- Hemorrhoids found on perianal ? exam. ? - The examined portion of the ileum ? was normal. ? - Diverticulosis in the sigmoid ? colon, in the descending colon, in ? the transverse colon and in the ? ascending colon. ? - Four 3 to 5 mm polyps in the ? rectum, removed with a cold snare. ? Resected and retrieved. Recommendation: ?- Discharge patient to home. ? - High fiber diet. ? - Await pathology results. ? - Repeat colonoscopy for ? surveillance based on pathology ? results. ? - The findings and recommendations ? were discussed with the patient. Procedure Code(s): ? --- Professional --- ? 47112, Colonoscopy, flexible; with ? removal of tumor(s), polyp(s), or ? other lesion(s) by snare technique ? G0500, Moderate sedation services ? provided by the same physician or ? other qualified health care ? professional performing a ? gastrointestinal endoscopic service ? that sedation supports, requiring ? the presence of an independent ? trained observer to assist in the ? monitoring of the patient's level ? of consciousness and physiological ? status; initial 15 minutes of ? intra-service time; patient age 5 ? years or older (additional time may ? be reported with 59048, as ? appropriate) Diagnosis Code(s): ? --- Professional --- ? Z83.71, Family history of colonic ? polyps ? K64.9, Unspecified hemorrhoids ? K62.1, Rectal polyp ? K57.30, Diverticulosis of large ? intestine without perforation or ? abscess without bleeding CPT copyright 2020 [employer]. All rights reserved. The codes documented in this report are preliminary and upon lna review may be revised to meet current compliance requirements. Bakari Grande, 04/22/2022 11:50:58 AM Number of Addenda: 0 Note Initiated On: 04/22/2022 10:39 AM ? Endoscopy Report Procedure Note Bakari Grande MD - 04/22/2022 Patient Name: Ruthann Rosas Procedure Date: 04/22/2022 10:39 AM Date of : 1965 Admit Type: Outpatient Age: 57 Gender: Female Note Status: Finalized Attending MD: Bakari Grande , Procedure: Colonoscopy Indications: Colon cancer screening in patient at increased risk: Family history of colon polyps in multiple 1st-degree relatives, Last colonoscopy: May 2014 (hyperplastic polyps in the rectum). Providers: Sherice Berman Referring MD: Svitlana Olmos MD Medicines: Midazolam 3 mg IV, Fentanyl 50 micrograms IV, See the other procedure note for documentation of the additional administered medications Complications: No immediate complications. Procedure: After I obtained informed consent, the scope was passed under direct vision. Throughout the procedure, the patient's blood pressure, pulse, and oxygen saturations were monitored continuously. The [id number] was introduced through the anus and advanced to the terminal ileum, with identification of the appendiceal orifice and IC valve. The colonoscopy was performed without difficulty. The patient tolerated the procedure well. The quality of the bowel preparation was good. Findings: Hemorrhoids were found on perianal exam. The terminal ileum appeared normal. Retroflexion in the right colon was performed. Scattered small and large-mouthed diverticula were found in the sigmoid colon, descending colon, transverse colon and ascending colon. Four flat polyps were found in the rectum. The polyps were 3 to 5 mm in size. These polyps were removed with a cold snare. Resection and retrieval were complete. Verification of patient identification for the specimen was done. Estimated blood loss was minimal. The exam was otherwise normal throughout the examined colon. Moderate Sedation: Moderate (conscious) sedation was administered by the endoscopy nurse and supervised by the endoscopist. The following parameters were monitored: oxygen saturation, heart rate, blood pressure, and response to care. Total physician intraservice time was 15 minutes. This time is the duration from the initial medication administration until the manager analytical assists with initial maneuvers (biopsy / polypectomy / etc.), or if no maneuvers are performed, until the endoscopist leaves the room. Impression: - Hemorrhoids found on perianal exam. - The examined portion of the ileum was normal. - Diverticulosis in the sigmoid colon, in the descending colon, in the transverse colon and in the ascending colon. - Four 3 to 5 mm polyps in the rectum, removed with a cold snare. Resected and retrieved. Recommendation: - Discharge patient to home. - High fiber diet. - Await pathology results. - Repeat colonoscopy for surveillance based on pathology results. - The findings and recommendations were discussed with the patient. Procedure Code(s): --- Professional --- 08238, Colonoscopy, flexible; with removal of tumor(s), polyp(s), or other lesion(s) by snare technique G0500, Moderate sedation services provided by the same physician or other qualified health care asst performing a gastrointestinal endoscopic service that sedation supports, requiring the presence of an independent trained observer to assist in the monitoring of the patient's level of consciousness and physiological status; initial 15 minutes of intra-service time; patient age 5 years or older (additional time may be reported with 85811, as appropriate) Diagnosis Code(s): --- Professional --- Z83.71, Family history of colonic polyps K64.9, Unspecified hemorrhoids K62.1, Rectal polyp K57.30, Diverticulosis of large intestine without perforation or abscess without bleeding CPT copyright 2020 [employer]. All rights reserved. The codes documented in this report are preliminary and upon lna review may be revised to meet current compliance requirements. Bakari Grande, 04/22/2022 11:50:58 AM Number of Addenda: 0 Note Initiated On: 04/22/2022 10:39 AM Endoscopy Report Svitlana Olmos MD PN GI PROCEDURE ORD ERABLES PN PROVATION * (ABNORMAL) Hgb A1C (03/24/2022 11:33 AM REAL ESTATE PROFESSOR) Hemoglobin A1C 6.0(H) <=5.6 % 03/25/2022 8:54 AM REAL ESTATE PROFESSOR [employer] [facility] Blood Venipuncture / Unknown 03/24/2022 11:33 AM REAL ESTATE PROFESSOR 03/24/2022 11:33 AM REAL ESTATE PROFESSOR Narrative REPLACED BY [facility] - 03/25/2022 8:54 AM REAL ESTATE PROFESSOR For patients not previously diagnosed with diabetes: 5.7-6.4%: Increased risk for diabetes 6.5% and greater: Diagnostic for diabetes For patients diagnosed with diabetes: <8.0%: Goal of therapy for ages 18-75 Clinicians may recommend a higher or lower goal for specific individuals. Svitlana Olmos MD LAB_1 [facility] [address] [place] [address] * MM Mammogram Screening Bilat W 3D Vasiliy W CAD (11/04/2021 9:10 AM CDT) Anatomical Region Laterality Modality Breast Bilateral Mammography Impressions 11/04/2021 9:25 AM CDT : ACR BI-RADS Category 1: Negative RECOMMENDATION: Follow Up Imaging in 12 months - Bilateral The results and recommendations of this examination will be communicated to the patient. Narrative 11/04/2021 9:25 AM CDT MM MAMMOGRAM SCREENING BILAT W 3D VASILIY W CAD performed on 11/04/21 Compared to: 04/27/2019 MM Mammogram Screening Bilat W 3D Vasiliy W CAD, 03/02/2017 MM Mammogram Screening Bilat W CAD, and 05/01/2015 MM Mammogram Screening Bilat W CAD ?? FINDINGS: Bilateral screening mammogram was performed with the assistance of Computer-Aided Detection and breast tomosynthesis. The breasts are heterogeneously dense, which may obscure small masses. There is no radiographic evidence of malignancy. ?? Svitlana Olmos MD RAD N[facility] * PAP Test (10/16/2018 11:40 AM CDT) Case Report Pap ? Case: [id number] ? Authorizing Provider: ??Svitlana Olmos MD ? Collected: ? 10/16/2018 11:40 AM ? Ordering Location: ? [facility] ?Received: ?10/16/2018 01:01 PM ? First Screen: ?Gisel Monroe CT ? (ASCP) ? Specimen: ?Pap Test, Routine, Cervix/Endocervix ? 10/19/2018 2:22 PM CDT [facility] Pap Specimen Adequacy Satisfactory for evaluation, endocervical/bermudez sformation zone component absent. 10/19/2018 2:22 PM CDT [facility] Pap Interpretation Negative for intraepithelial lesion or malignancy (NILM). 10/19/2018 2:22 PM CDT [facility] Gross Description The specimen is received in SurePath fixative and properly labeled. 1 Pap-stained SurePath slide is prepared. 10/19/2018 2:22 PM CDT [facility] Pap Disclaimer The Pap test is a screening test designed to aid in the detection of cervical cancer and its precursor lesions. It is not a diagnostic procedure and should not be used as the sole means of detecting cervical cancer. Both false-positive and false-negative reports may occur. 10/19/2018 2:22 PM CDT [facility] Embedded Images 9 2:22 PM CDT [facility] Other Specimen Type ENTIRE ENDOCERVIX / Unknown 10/16/2018 11:40 AM CDT 10/16/2018 1:01 PM CDT Comment:LMP: No LMP recorded . Svitlana Olmos MD LAB PATHOLOGY [facility] [address] * HIV Antibody (07/30/2003 12:02 PM CDT) HIV 1/HIV 2 Non Reac Non Reac HP CONVERSION 07/30/2003 12:0 2 PM CDT Bessy Vera LAB_1 HP CONVERSION * Hepatitis C Antibody, with Reflex (06/26/2003 4:06 PM CDT) Hepatitis C Antibody Non Reac Non Reac HP CONVERSION 06/26/2003 4:06 PM CDT Viri Mena APRN, CNP LAB_1 Performing Organization Address City/State/[facility] Co de Phone Number HP CONVERSION from Last 3 Months or Most Recently Relevant to Health Maintenance Advance Directives * Full Code (Latest Code Status on File) Date Activated Date Inactivated Comments 09/14/2023 6:00 AM 09/22/2023 5:23 PM * Full Code Date Activated Date Inactivated Comments 06/16/2023 2:35 PM 06/16/2023 9:07 PM Care Teams Mine Motor Engineer Relationship Specialty Start Date End Date Svitlana Olmos MD [address] [place] [address] PCP - General 05/30/10
--- OUTSIDE RECORDS SUMMARY | 2023-09-28 12:46 | XMS_ITS | Encounter Summary ---
Author Organization [facility] Address [address], [place] [address] Care Team Providers Care Schedule Maker Name Role Phone Svitlana Olmos MD Primary Care Provider [phone] Encounter Details Date Type Department Care Team (Late st Contact Info) Description 09/27/2023 E-Visit [facility]tho Spine [address] [place] [address] [employer], [place] [address] Social History Tobacco Use Types Packs/Day Years Used Date Smoking Tobacco: Every Day Cigarettes 1 40.2 Started: 02/28/1979; Last attempted to quit: 05/30/2019 Smokeless Tobacco: Never Comments:Smoking History Pac ks/day: quit 06/13/2023 Alcohol Use Standard Drinks/Week Comments No 0 (1 standard drink = 0.6 oz pur e alcohol) [facility] Utilities Answer Date Recorded In [...] place to sleep or slept in a halfway (including now)? No 09/14/2023 Sex and Gender Information Value Date Recorded Sex Assigned at Not on file Gender Identity Not on file Sexual Orientation Not on file documented as of this encounter Plan of Treatment Upcoming Encounters Date Type Department Care Team (Late st Contact Info) Description 09/29/2023 8:40 AM CDT Appointment [facility] Neurosurgery/Ortho Spine [address] [place] [id number] Nurse Visit 10/03/2023 11:00 AM CDT Appointment [facility] [address] [address] Svitlana Olmos MD [address] [place] [address] 10/20/2023 10:30 AM CDT Appointment [facility]o Spine [address] [facility] [place] [address] 12/06/2023 10:20 AM CDT Appointment [facility] Neurosurgery/Ortho Spine [address] [place] [address] Jg Munguia MD [address] [place], [place] [phone] 01/03/2024 11:20 AM AVIATION ELECTRONICS TECHNICIAN Appointment [facility] [address] [place], [place] [id number] [facility] [address] [place], [place] [phone] documented as of this encounter Visit Diagnoses Not on filedocumented in this encounter Care Teams Schedule Maker Relationship Specialty Start Date End Date Svitlana Olmos MD [address] [place] [address] PCP - General 05/30/10 documented as of this encounter
--- OUTSIDE RECORDS SUMMARY | 2023-09-28 12:46 | XMS_ITS | Encounter Summary ---
Author Organization [facility] Address [address], [place] [address] Care Team Providers Care Turbine Operator Name Role Phone Svitlana Olmos MD Primary Care Provider [phone] Encounter Details Date Type Department Care Team (Late st Contact Info) Description 09/27/2023 1:30 PM CDT Lab Visit [facility] Laboratory [address] [facility]. [place], [place] [id number] Infection Social History Tobacco Use Types Packs/Day Years Used Date Smoking Tobacco: Every Day Cigarettes 1 40.2 Started: 02/28/1979; Last attempted to quit: 05/30/2019 Smokeless Tobacco: Never Comments:Smoking History Pac ks/day: quit 06/13/2023 Alcohol Use Standard Drinks/Week Comments No 0 (1 standard drink = 0.6 oz pur e alcohol) [facility] Utilities Answer Date Recorded In the past 12 months has [employer], gas, oil, or water [employer] threatened to shut off services in your [...] place to sleep or slept in a long-term (including now)? No 09/14/2023 Sex and Gender Information Value Date Recorded Sex Assigned at Not on file Gender Identity Not on file Sexual Orientation Not on file documented as of this encounter Plan of Treatment Upcoming Encounters Date Type Department Care Team (Late st Contact Info) Description 09/29/2023 8:40 AM CDT Appointment [facility] Neurosurgery/[facility]tho Spine [address] [facility] [place] [address] Nurse Visit 10/03/2023 11:00 AM CDT Appointment [facility] [address] [address] Svitlana Olmos MD [address] [place] [address] 10/20/2023 10:30 AM CDT Appointment [facility]o [facility] [address] [facility] [place] [address] 12/06/2023 10:20 AM CDT Appointment [facility] [address] [facility] [place] [address] Jg Munguia MD [address] [place] [address] 01/03/2024 11:20 AM CROTCH BREAKER Appointment [facility] Dental [facility] [address] [place] [address] [facility] [address] [place], [place] [id number] documented as of this encounter Procedures Procedure Name Priority Date/Time Associated Diagnosis Comments CBC AND DIFFERENTIAL PANEL Routine 09/27/2023 1:44 PM CDT Infection COMPLETE BLOOD COUNT-W/DIFF Routine 09/27/2023 1:44 PM CDT Infection C-REACTIVE PROTEIN Routine 09/27/2023 1: 44 PM CDT Infection documented in this encounter Results * (ABNORMAL) Complete Blood Count-W/Diff (09/27/2023 1:44 PM CDT) WBC 11.2(H) 3.5 - 10.5 x10(9)/L 09/27/2023 6:01 PM [facility] RBC 4.22 3.90 - 5.03 x10(12)/L 09/27/2023 6:01 PM [facility] Hemoglobin 11.8(L) 12.0 - 15.5 g/dL 09/27/2023 6:01 PM [facility] HCT 37.5 34.9 - 44.5 % 09/27/2023 6:01 PM [facility] MCV 88.9 80.0 - 100.0 fL 09/27/2023 6:01 PM [facility] MCH 28.0 27.6 - 33.3 pg 09/27/2023 6:01 PM [facility] MCHC 31.5 31.5 - 35.2 g/dL 09/27/2023 6:01 PM [facility] RDW 14.1 11.9 - 15.5 % 09/27/2023 6:01 PM [facility] Platelets 258 150 - 450 x10(9)/L 09/27/2023 6:01 PM [facility] Automated NRBC 0 <=0 /100 WBC 09/27/2023 6:01 PM [facility] Neutrophil Absolute 6.6 1.7 - 7.0 10(9)/L 09/27/2023 6:01 PM [facility] Lymphocyte Absolute 2.9 1.0 - 4.8 10(9)/L 09/27/2023 6:01 PM [facility] Monocyte Absolute 1.1(H) 0.2 - 0.9 10(9)/L 09/27/2023 6:01 PM [facility] Eosinophil Absolute 0.3 0.0 - 0.5 10(9)/L 09/27/2023 6:01 PM [facility] Basophil Absolute 0.1 0.0 - 0.3 10(9)/L 09/27/2023 6:01 PM [facility] Immature Granulocyte % 2.6(H) 0.0 - 0.5 % 09/27/2023 6:01 PM [facility] Blood Venipuncture / Unknown 09/27/2023 1:44 PM CDT 09/27/2023 1:44 PM CDT Jg Munguia MD LAB_[address] [address], [facility] * (ABNORMAL) C-Reactive Protein (09/27/2023 1:44 PM CDT) [facility] C-Reactive Protein 6.0(H) 0.0 - 0.5 mg/dL 09/27/2023 7:37 PM CDT [facility] Blood Venipuncture / Unknown 09/27/2023 1:44 PM CDT 09/27/2023 1:44 PM CDT Jg Munguia MD LAB_1 [facility] [address] documented in this encounter Visit Diagnoses Diagnosis Infection Unspecified infectious and parasitic diseases documented in this encounter Care Teams Turbine Operator Relationship Specialty Start Date End Date Svitlana Olmos MD [address] [place] [address] PCP - General 05/30/10 documented as of this encounter
--- OUTSIDE RECORDS SUMMARY | 2023-09-28 12:46 | XMS_ITS | Encounter Summary ---
Author Organization [facility] Address [address], [place] [address] Care Team Providers Care Service Observer Name Role Phone Svitlana Olmos MD Primary Care Provider [phone] Reason for Visit * Reason Comments Nurse Visit Encounter Details Date Type Department Care Team (Latest Contact Info) Description 09/27/2023 12:20 PM CDT Office Visit [facility] Neurosurgery/Ortho Spine [address] [facility]. [place], [place] [phone] Infection (Primary Dx) Social History Tobacco Use Types Packs/Day Years Used Date Smoking Tobacco: Every Day Cigarettes 1 40.2 Started: 02/28/1979; Last attempted to quit: 05/30/2019 Smokeless Tobacco: Never Comments:Smoking History Pac ks/day: quit 06/13/2023 Alcohol Use Standard Drinks/Week Comments No 0 (1 standard drink = 0.6 oz pur e alcohol) [place] Utilities Answer Date Recorded In the past 12 months has [employer], gas, oil, or water [employer] threatened to shut off services in your [...] on file documented as of this encounter Patient Instructions * Patient Instructions* Ludy Ocasio, RN - 09/27/2023 12:20 PM CDT Neurosurgery Center Patient Instructions No lifting over 10 pounds. No activities that cause and increase in pressure in your head, like straining or prolonged bending. No driving until cleared by your surgeon or occupational therapy.No airtravel for at least 4 weeks post- operation/until cleared by your surgeon. No sleeping on the same side as your incision and continue to sleep with your head elevated. Ok to shower but pat incision dry. Try not to let the water from the shower head fall directly on the incision. Continue to not soak the incision in bathtubs, swimming pool, hot tubs, or lakes. Please call [phone] with any signs of infection at incision site: redness/discoloration, increase in swelling, drainage, opening of the incision, hot to the touch, and/or fever greater than 100.5. Follow up: with Mike Davis PA-C on 10/20/23 at 10:30 am. Please arrive 30 minutes early to have xrays done prior to your appointment; if ordered from your last appointment. If tests were ordered, they will be reviewed at your next office visit. Please allow 10-14 days for forms to be completed and 2-3 business days for medication refills to be addressed. If you have a change in your insurance plans, please notify the clinic so we can update our records. If we have incorrect insurance information, it can cause delays in clinic appointments and surgeries. Because we are a Level 1 Trauma Center and employ exceptional surgical staff, occasionally our surgeons must respond to hospital emergencies. This may delay the clinic or cause us to reschedule appointments. We make every attempt to limit these disruptions to you and ask for your understanding. Please call the Neurosurgery Center [phone] with any further questions or concerns. Thank you for coming to see us today. We are your partner. documented in this encounter Progress Notes * Ludy Ocasio RN - 09/27/2023 12:20 PM CDT Pt in clinic s/p stealth guided medial eyebrow craniotomy for meningioma resection by Dr. Munguia on09/14/2023. Pt presented to clinic for incision check, pt reports pus at incision. Temp 99.5 and pt feels warm to the touch. She states the last 2-3 days she has increased headache and swelling in her forehead. She also states she woke up today and just didn't feel well. There is some dry drainage that looks thick and is a light brown color. Dr. Munguia examined area and thinks there is some cellulitis around the forehead. He recommends CBC, CRP, keflex 500mg QID x 7 days and mupirocin ointment to the forehead and cheeks/nose. Avoid incision area. Also advised pt to use ice packs to help with swelling and headache. Pt's incision is healing well, no signs of infections (no redness, warmth, swelling, drainage, and/or pain). Incisional edges well approximated. Pt had sutures removed prior to discharge on 09/22/23. Pt was educated about their current restrictions (no excessive bending, twisting, pushing and/or pulling and no lifting >10 lbs; no ? soaking? the incision [no baths, hot tubs, and/or pools for4 more weeks) Pt has no additional questions or concerns at this time. She was advised to give us an update on or Tuesday. Pt will follow-up with MIGUEL in 4 weeks. Nury Ramon RN 09/27/2023, 3:04 PM documented in this encounter Plan of Treatment Upcoming Encounters Date Type Department Care Team (Late st Contact Info) Description 09/29/2023 8:40 AM CDT Appointment [facility] Neurosurgery/Ortho Spine [address] [facility] [place] [address] Nurse Visit 10/03/2023 11:00 AM CDT Appointment [facility] [address] [address] Svitlana Olmos MD [address] [place] [address] [address] [address] 10/20/2023 10:30 AM CDT Appointment [facility] Neurosurgery/Ortho Spine [address] [facility]. [place] [address] 12/06/2023 10:20 AM CDT Appointment [facility] Neurosurgery/Ortho Spine [address] [facility]. [place] [address] Jg Munguia MD [address] [facility] [place] [address] 01/03/2024 11:20 AM DELIVERER PHARMACY Appointment [facility] [place] [address] [place] [address] Latha Burns, [facility] [address] [place] [address] documented as of this encounter Results * (ABNORMAL) C-Reactive Protein (09/27/2023 1:44 PM CDT) C-Reactive Protein 6.0(H) 0.0 - 0.5 mg/dL 09/27/2023 7:37 PM CDT [facility] Blood Venipuncture / Unknown 09/27/2023 1:44 PM CDT 09/27/2023 1:44 PM CDT Jg Munguia MD LAB_1 Performing Organization Address City/State/[facility] Co de Phone Number [facility] [address] documented in this encounter Visit Diagnoses Diagnosis Infection- Primary Unspecified infectious and parasitic diseases documented in this encounter Care Teams Service Observer Relationship Specialty Start Date End Date Svitlana Olmos MD [address] [place] [address] PCP - General 05/30/10 documented as of this encounter
--- OUTSIDE RECORDS SUMMARY | 2023-09-28 12:47 | XMS_ITS | Encounter Summary ---
Author Organization [facility] Address [address] [place] [address] Care Team Providers Care Physics Faculty Member Name Role Phone Svitlana Olmos MD Primary Care Provider [phone] Reason for Visit * Auth/Cert (Routine) Specialty Diagnoses / Procedures Referred By Martir seay Referred To Contact Diagnoses Meningioma ([facility]C) . Procedures Stealth guided Medial Eyebrow Craniotomy for Meningioma Resection. IMAGE GUIDANCE ADD ON NEURO (*) Referral ID Status Reason Start Date Expiration Date Visits Re quested Visits Authorized [id number] 1 1 Encounter Details Date Type Department Care Team (Latest Contact Info) Description 09/14/2023 6:30 AM CDT Ancillary Procedure [facility] [address] [address] Jg Munguia MD [address] [place] [id number] Meningioma (HRC) Social History Tobacco Use Types Packs/Day Years Used Date Smoking Tobacco: Every Day Cigarettes 1 40.2 Started: 02/28/1979; Last attempted to quit: 05/30/2019 Smokeless Tobacco: Never Comments:Smoking History Pac ks/day: quit 06/13/2023 Alcohol Use Standard Drinks/Week Comments No 0 (1 standard drink = 0.6 oz pur e alcohol) [facility] Utilities Answer Date Recorded In the past 12 months has [employer], [employer], or [employer] threatened to shut off services in your [...] place to sleep or slept in a fpc (including now)? No 09/14/2023 Sex and Gender Information Value Date Recorded Sex Assigned at Not on file Gender Identity Not on file Sexual Orientation Not on file documented as of this encounter Plan of Treatment Upcoming Encounters Date Type Department Care Team (Late st Contact Info) Description 09/29/2023 8:40 AM CDT Appointment [facility] Neurosurgery/Ortho Spine [address] [facility] [place] [address] Nurse Visit 10/03/2023 11:00 AM CDT Appointment [facility] [address] [address] Svitlana Olmos MD [address] [address] 10/20/2023 10:30 AM CDT Appointment [facility] Neurosurgery/Ortho Spine [address] [facility] [place] [address] 12/06/2023 10:20 AM CDT Appointment [facility] Neurosurgery/Ortho Spine [address] [facility] [place] [address] Jg Munguia MD [address] [place] [address] 01/03/2024 11:20 AM OB GYN Appointment [facility] Dental [facility] [address] [place] [address] [facility] [address] [place], [place] [phone] documented as of this encounter Procedures Procedure Name Priority Date/Time Associated Diagnosis Comments CT HEAD WO IV CONT STEALTH Routine 09/14/2023 7:45 AM CDT Meningioma (HRC) documented in this encounter Results * CT Head WO IV Cont Stealth (09/14/2023 7:45 AM CDT) Anatomical Region Laterality Modality Head Computed Tomogra phy 09/14/2023 7:45 AM CDT Narrative 09/14/2023 2:37 PM CDT EXAM: CT HEAD WO IV CONT STEALTH LOCATION: [facility] DATE: 09/14/2023 INDICATION: Plan for eyebrow [...] CT HEAD WO IV CONT STEALTH LOCATION: [facility] DATE: 09/14/2023 INDICATION: Plan for eyebrow craniotomy [...] sphenoidale meningioma. Jg Munguia MD RAD CT documented in this encounter Visit Diagnoses Diagnosis Meningioma (HRC) Benign neoplasm of cerebral meninges documented in this encounter Care Teams Physics Faculty Member Relationship Specialty Start Date End Date Svitlana Olmos MD [facility] [place] [address] PCP - General 05/30/10 documented as of this encounter
--- OUTSIDE RECORDS SUMMARY | 2023-09-28 12:47 | XMS_ITS | Encounter Summary ---
Author Organization [facility] Address [address] [place] [address] Care Team Providers Care Nurse Unit Manager Name Role Phone Svitlana Olmos MD Primary Care Provider [phone] Reason for Referral * Procedure/Equipment (Routine) - New Request Specialty Diagnoses / Procedures Referred By Contac t Referred To Contact Diagnoses Meningioma (HRC) Hina Nielson PA-C [address] [place] [id number] Referral ID Status Reason Start Date Expiration Date V isits Requested Visits Authorized [id number] New Request 09/22/2023 12/21/2024 1 1 Scheduling Instructions Your clinician has recommended an appointment with [facility] Neurosurgery. You may call [phone], option [phone] to schedule your appointment. Question Answer Appointment Urgency? Non-Urgent Patient should be seen by s/p eyebrow crani, follow up next (09/28) or the following Tuesday (10/03) for incision check with Dr. Munguia * Consult/Transfer Care (Routine) - New Request Specialty Diagnoses / Procedures Referred By Contac t Referred To Contact Diagnoses Bradycardia, sinus Juan Dudley MD [address] [place] [address] Referral ID Status Reason Start Date Expiration Date V isits Requested Visits Authorized [id number] New Request 09/22/2023 12/21/2023 1 1 Scheduling Instructions Your clinician has recommended an appointment with [facility] for your ongoing patient care. You can quickly make your appointment online at [employer]/schedule. You can also call [phone] for help scheduling your appointment. We suggest you call your health insurance company about your coverage and benefits for this appointment. Question Answer Appointment Urgency? Non-Urgent What type of follow up? IP Discharge Reason for visit? f/u meningioma resection, bradycardia (holter monitor ordered) Outpatient Appt Need? Hospital Follow up Comments Primary Care Provider: Svitlana Olmos MD * Procedure/Equipment (Routine) - Incomplete Specialty Diagnoses / Procedures Referred By Contgary t Referred To Contact Diagnoses Meningioma (HRC) S/P craniotomy Procedures MR Brain W/WO IV Svitlana Porter APRN COMPUTER TECHNICIAN [address] [place] [address] Referral ID Status Reason Start Date Expiration Date V isits Requested Visits Authorized [id number] Incomplete 12/15/2023 03/15/2025 1 1 * Procedure/Equipment (Routine) - New Request Specialty Diagnoses / Procedures Referred By Contgary seay Referred To Contact Diagnoses Bradycardia, sinus Chiquita Gaffney MD [address] [place] [phone] Referral ID Status Reason Start Date Expiration Date V isits Requested Visits Authorized [id number] New Request 09/19/2023 12/18/2024 1 1 Scheduling Instructions You will be contacted within a week by cardiology regarding 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 This recommended service may not be covered by your insurance coverage. We suggest you call your health insurance company about your coverage and benefits for this appointment. Question Answer Appointment Urgency? Urgent (patient needs to be seen within one week) Location: [facility] Is patient appropriate candidate for self hookup of monitor? Yes Does this patient have a pacemaker No Diagnosis: Shortness of Breath, Other, please specify in comments Reason for visit? bradycardia, 1 weeks monitor * Procedure/Equipment (Routine) - Incomplete Specialty Diagnoses / Procedures Referred By Martir seay Referred To Contact Procedures MR Brain W/WO IV Hina Plata PA-C [address] [place] [address] Referral ID Status Reason Start Date Expiration Date V isits Requested Visits Authorized [id number] Incomplete 09/14/2023 12/13/2024 1 1 Reason for Visit * Auth/Cert (Routine) Specialty Diagnoses / Procedures Referred By Martir seay Referred To Contact Diagnoses Meningioma (HRC) . Procedures Stealth guided Medial Eyebrow Craniotomy for Meningioma Resection. IMAGE GUIDANCE ADD ON NEURO (*) Referral ID Status Reason Start Date Expiration Date Visits Re quested Visits Authorized [id number] 1 1 Encounter Details Date Type Department Care Team (Latest Contact Info) Description 09/14/2023 4:48 AM CDT - 09/22/2023 3:23 PM CDT Hospital Encounter [id number] [place] [address] Jg Munguia MD [address] [place] [id number] Bradycardia, sinus (Primary Dx); Meningioma (HRC); S/P craniotomy Discharge Disposition: Home Social History Tobacco Use Types Packs/Day Years Used Date Smoking Tobacco: Every Day Cigarettes 1 40.2 Started: 02/28/1979; Last attempted to quit: 05/30/2019 Smokeless Tobacco: Never Comments:Smoking History Pac ks/day: quit 06/13/2023 Alcohol Use Standard Drinks/Week Comments No 0 (1 standard drink = 0.6 oz pur e alcohol) [facility] Utilities Answer Date Recorded In the past 12 months has th e electric, gas, oil, or water [employer] threatened to shut off services in your [...] money to buy more. Never true 09/14/19 Within the past 12 months, t he [...] on file documented as of this encounter Last Filed Vital Signs Vital Sign Reading [...] Mass Index 27.29 09/14/2023 6:01 AM CDT documented in this encounter Discharge Summaries * Hina Nielson PA-C - 09/22/2023 12:17 PM CDT Neurosurgery Discharge Summary Date of service: 09/22/2023 Admission date: 09/14/2023 Discharge date: 09/22/2023 Service: Neurosurgery Admitting Physician: Dr. 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 Complications: none Consults: Hospital medicine Neurocritical Care PT/OT Pre Operative History: Rtuhann is a pleasant 58 y.o. female who is seen today evaluation of 3 x 3 x 3 cm enhancing extra-axial mass along the planum sphenoidale noted on her MR imaging. Today, the patient reports that she was hanging a mirror and the mirror fell and hit her head. She did have two black eyes and eventually presented to urgent care where she had a CT scan which showeda lesion that led to her MRI scan. She is having surgery on for right rotator cuff repair as a result of her fall. She does not use glasses. She reports she went through menopause around age45. She reports her olfaction is intact. She is currently on FMLA for a concussion. Hospital Course: Ruthann was admitted on 09/14/2023 and underwent above-stated procedure. There were no intra-operative complications and procedure was well-tolerated. Please see operative report for full detail. Post-operatively Ruthann was admitted to the neuro ICU. Neurocritical care did follow the patientpost-operatively while she was in the ICU. She was ultimately deemed stable for transfer to the floor on 09/14. Patient was noted to have some hypotension and bradycardia post-operatively. Medicine was consulted on 09/18 to assist with workup. The rest of patient's hospital stay was unremarkable. Ruthann was able to have adequate pain control on oral pain medications, and was tolerating a general diet and oral medications without nausea or vomiting. The patient had no problems with voiding and is passing flatus. Ruthann was seen by physical therapy and occupational therapy and was tolerating treatments well. Ambulating without concerns. Incision healing well without any signs of infection. Her sutures were removed by Dr. Munguia prior to discharge. Post-operative MRI obtained and showed no evidence of residual tumor. Ruthann is in good condition for discharge to home. Medicine did follow Ruthann during her hospital stay for assistance with management of bradycardia post-operatively. She was deemed safe for discharge from medicine perspective with holter monitor prescribed upon discharge. Imaging: Preop: MR Brain 09/13/23 IMPRESSION: 1. Exam performed for surgical/therapy planning purposes as above. 2. Stable presumed planum sphenoidale meningioma measuring approximately 3 cm. 3. No significant interval progression of mass effect or right frontal lobe edema. Postop: MR Brain 09/15/23 IMPRESSION: 1. Postoperative changes of planum sphenoidale meningioma resection. No evidence for residual tumor. 2. Small amount of cytotoxic edema within the right greater than left frontal lobes adjacent to theresection cavity. Labs: Hemoglobin Date Value Ref Range Status 09/19/2023 12.7 12.0 - 15.5 g/dL Final Normal: 12-17 Hospital Encounter on 09/14/23 (from the past 24 hour(s)) Glucose, Whole Blood POCT Result Value Ref Range Glucose, Whole Blood 105 70 - 180 mg/dL Performing Location [facility] Glucose, Whole Blood POCT Result Value Ref Range Glucose, Whole Blood 111 70 - 180 mg/dL Performing Location [facility] Glucose, Whole Blood POCT Result Value Ref Range Glucose, Whole Blood 96 70 - 180 mg/dL Performing Location [facility] Glucose, Whole Blood POCT Result Value Ref Range Glucose, Whole Blood 89 70 - 180 mg/dL Performing Location [facility] Physical Exam: BP 107/71 (BP Cuff Size: Regular) Pulse (!) 50 Temp 98.1 ??F (36.7 ??C) (Oral) Resp 17 Ht 5' 5 (1.651 m) Wt 74.4 kg (164 lb) SpO2 96% BMI 27.29 kg/m?? General: in no acute distress. Alert and oriented x 3, following commands Incision: sutures removed prior to discharge. Incision well healing, clean, dry and intact without s/s of infection. Neuro: CN II-XII intact. Speech clear and fluent in character and context. Sensation intact on extremities. Respiratory: Breathing unlabored Abdomen: no distention noted Musculoskeletal: RUE somewhat deferred d/t previous injury but 5/5 distally on RUE and 5/5 LUE/BLE Disposition: Ruthann was discharged to home in good condition Diet: Resume pre operative diet. Increase fluids and fiber to avoid constipation Discharge medications: Discharge Medication List as of 09/22/2023 1:46 PM START taking these medications Details dexAMETHasone (DECADRON) 2 MG tablet Take 1 tablet (2 mg) by mouth twice daily on 09/21/23. Then, take 1 tablet (2 mg) daily on 09/22/23, then stop., Disp-3 Tablet, R-0, BID WITH MEALS Starting Tue09/20/2023, Oral, Normal famotidine (PEPCID) 20 MG tablet Take 1 Tablet (20 mg) by mouth two times a day before meals., Disp-6 Tablet, R-0, BID AC Starting Tue09/21/2023, Oral, Normal hydrOXYzine pamoate (VISTARIL) 50 MG capsule Take 1 Capsule (50 mg) by mouth every 6 hours as needed for Pain., Disp-16 Capsule, R-0, Q6H PRN Starting Tue09/22/2023, Oral, Normal levETIRAcetam (KEPPRA) 500 MG tablet Take 1 Tablet (500 mg) by mouth two times a day for 7 days., Disp-14 Tablet, R-0, BID Starting Tue09/20/2023, Until Noy 09/29/2023, For 7 days, Oral, Normal methocarbamol (ROBAXIN) 500 MG tablet Take 1 Tablet (500 mg) by mouth 4 times daily as needed., Disp-30 Tablet, R-0, QID PRN Starting Tue09/22/2023, Oral, Normal oxyCODONE (ROXICODONE) 5 MG immediate release tablet Take 1-2 Tablets (5-10 mg) by mouth every 6 hours as needed for Pain., Disp-25 Tablet, R-0, Q6H PRN Starting Tue09/22/2023, Oral, Normal sennosides-docusate sodium (SENOKOT S) 8.6-50 MG per tablet Take 2 Tablets by mouth two times dailyas needed for Constipation. Indications: Constipation, Disp-60 Tablet, R-0, BID PRN Starting Tue09/20/2023, Oral, Normal CONTINUE these medications which have CHANGED Details Garlic (ODOR FREE GARLIC) 100 MG Take 1 Tablet (100 mg) by mouth daily. Do not start before September 28, 2023., DAILY Starting Tue09/28/2023, Oral, No Print/No Fill ibuprofen (MOTRIN) 600 MG tablet Take 1 Tablet (600 mg) by mouth every 6 hours as needed for Pain. Do not start before September 28, 2023., Q6H PRN Starting Tue09/28/2023, Oral, No Print/No Fill [place]-3 Fatty Acids (FISH OIL) 1000 MG capsule Take 1 Capsule (1,000 mg) by mouth daily. Do not start before September 28, 2023., DAILY Starting Tue09/28/2023, Oral, No Print/No Fill CONTINUE these medications which have NOT CHANGED Details acetaminophen (TYLENOL) 325 MG tablet Take 1-2 Tablets (325-650 mg) by mouth every 6 hours as needed for Pain., Disp-45 Tablet, R-1, Q6H PRN Starting Tue06/16/2023, Oral, E-Prescribing acyclovir (ZOVIRAX) 400 MG tablet Take 1 Tablet (400 mg) by mouth three times a day as needed., Disp-15 Tablet, R-3, TID PRN Starting Tue03/24/2022, Oral, E-Prescribing ascorbic acid (AKA VITAMIN C) 500 MG tablet Take 2 Tablets (1,000 mg) by mouth daily., DAILY (NS) Starting Tue06/01/2005, Oral, HistoricalPN: Calcium Carbonate (CALCIUM 500 OR) Historical Cholecalciferol (VITAMIN D-3 OR) Historical Multiple Vitamins-Minerals (MULTIVITAMIN OR) Take 1 tablet by mouth daily (every 24 hours)., Disp-100, R-13, DAILY (NS) Starting 06/01/2005, Until Discontinued, Oral, HistoricalPN: traZODone (DESYREL) 100 MG tablet Take 2 Tablets (200 mg) by mouth daily at bedtime., Disp-180 Tablet, R-3, HS Starting Tue08/31/2023, Oral, E-Prescribing varenicline (CHANTIX) 1 MG tablet Take 1 Tablet (1 mg) by mouth two times a day. Take after eating with a full glass of water.NOTE:Dispense as maintenance for refills only., Disp-180 Tablet, R-3, BIDStarting Tue05/25/2023, Oral, E-Prescribing STOP taking these medications bacitracin 500 UNIT/GM ointment Comments: Reason for Stopping: senna (SENNA LAXATIVE) 8.6 MG tablet Comments: Reason for Stopping: triamcinolone acetonide (KENALOG) 0.1 % ointment Comments: Reason for Stopping: Discharge instructions: MR Brain W/WO IV Cont Standing Status: Future Standing Exp. Date: 12/14/24 If after 48 hours a [facility] yard engineer has not yet contacted you, please call [phone] to schedule your procedure. Prep instructions will be confirmed at time of scheduling. Your provider has recommended an appointment in MRI. Because MRI uses powerful magnets, the presence of metal in your body may be a safety hazard or affect a portion of the MRI image. Please inform the solderer electronic of any metal or electronic devices in your body and if you have a medical implant card, medical technical writer card, and/or device controller pleasebring it with you for your appointment and have it available while scheduling the appointment. Here are just a few implant examples: - An implantable heart defibrillator - Aortic stents - Pacemaker, loop recorder - Metal clips - Cochlear implants - Bullet, shrapnel or any other type of metal fragment - Stimulators - Insulin pump Before you schedule an MRI, tell your doctor if you think you're . Sometimes the Radiologist will choose to give contrast in your veins for your study. It is important to discuss any kidney or liver problems with your doctor and the technologist, because problems with these organs may limit the use of injected contrast It is recommended that you review your insurance coverage for the imaging service ordered by your provider. To find out your specific benefit coverage, please call the number on your insurance card. If this is a diagnostic procedure, have the patient???s age and recent imaging history been considered? Yes Reason for Exam S/P Craniotomy for Tumor Resection; 3 Month Post-Operative Surveillance Imagint Study Focus History Tumor Add Perfusion Series Imaging Department may modify order per department protocol. Revisions will be made without the need for a new order to be placed. Yes Is the patient claustrophobic? No Report Priority and Patient Disposition Patient may leave Radiology may order the following if patient meets criteria Orbit XR Radiology may order the following if patient meets criteria Creatinine/eGFR Radiology may order the following if patient meets criteria INR Radiology may order the following if patient meets criteria Hematocrit Radiology may order the following if patient meets criteria Test Radiology may order the following if patient meets criteria Chest XR Event Monitor Referral Priority: Routine Referral Type: Procedure/Equipment Number of Visits Requested: 1 Primary Care Follow-Up Referral Priority: Routine Referral Type: Consult/Transfer Care Number of Visits Requested: 1 Expiration Date: 12/21/23 Neurosurgery Follow-Up Referral Priority: Routine Referral Type: Procedure/Equipment Number of Visits Requested: 1 If you have new or worsening symptoms or any of the following symptoms, call your Primary Care doctor: o Fever of 101 Fahrenheit or higher o Pain that does not improve with pain medication o Unable to tolerate liquids and stay hydrated or Continual nausea or vomiting o New severe lightheadedness or dizziness Cranial Incision Care Check your incision every day. Call the Neurosurgery Clinic right away at [phone] if you have: *Any separation of the incision edges or opening along the incision. *Any sign of infection such as redness, drainage, swelling, or tenderness and warmth to the touch. *Any questions or concerns about your incisions. Tips for your incision care: *Keep your head incision open to the air as much as possible. *Keep the incision clean and dry. *Avoid resting or laying on the operated side of your head; this may lead to more swelling, especially around your eye and face. *Use ice packs to the incision area as needed to help with pain and tenderness. *You can shampoo your hair. Do not scrub your incision area. *Do NOT use hair care products such as gel, mousse, hair spray or hair coloring until cleared by the Neurosurgery Clinic. *Do NOT let your incision submerge (go under the water) in pools or tubs until your incision is completely healed in 4 to 6 weeks (or until approved by the Neurosurgery Clinic.) Activity Restrictions - See Patient Instructions 1) No Lifting > 10 Lbs 2) Avoid any strenuous activity and straining for the first 2 weeks following your operation. 3) Do not drive for the first 2 weeks following your operation and while using narcotic pain medication. 4) Increase your activity as tolerated beginning with short and frequent walks with periods of restbetween. Wound/Dressing Other Instructions Wound Measurement ~ 3 Inches Type of wound Surgical Incision Location of wound Forehead; Eyebrow Instructions for Irrigation/Cleaning OK to shower and get your incision wet. Allow soap and water to gently rince over incision. Pat dry with a clean towel after bathing. Do not submerge the incisionbeneath any body of water for the first 6 weeks post-operatively. Topical treatments Apply thin layer of Bacitracin ointmnent to the incision 2-3 times daily. Dressing Keep your incision open to air. Additional information/instructions Monitor incision for redness, swelling, drainage and warmth. Regular Diet You may resume your regular diet. Be sure to drink plenty of water and add high- fiber foods to yourdiet while using narcotic pain medications to help prevent constipation. No Pending Labs Discharge Instructions to Patient MEDICINE CONSULT INSTRUCTIONS: So glad that you're recovering well from surgery. Regarding your bradycardia, reviewed your case with EP cardiology. They agree with current plan for monitoring since there are no blocks on EKG and you are asymptomatic. If this changes, then they would intervene. Please follow up with your PCP after your Holter monitor to review results. Take good care, Heriberto Dudley MD ([employer]) [facility] Medicine Discharge Instructions to Patient Follow up with Dr. Munguia next and at post-op appointment on 10/20/23. No lifting greater than 10 pounds for 6 weeks. Avoid strenuous activity. Walk several times daily and rest as needed. Use 2-3 pillows for at least 4 weeks after surgery. Do not drive until seen in the Neurosurgery clinic. Call the Neurosurgery clinic to discuss return to work. Monitor incision daily for signs of infection, which include redness, drainage, swelling, tenderness, and warmth to the touch. Leave head incision open to air. Keep incision clean and dry. Avoid positioning on operative side of head. May use ice packs to incision as needed. May shampoo hair but wash away from incision and keep it dry (you may need help with washing your hair). No tubs or pools until incision is completely healed in 4-6 weeks. Any changes in your incision, fever greater than 100.5, severe headaches, neurological changes suchas difficulty speaking, facial drooping, changes in sensation or strength to your extremities, please call the Neurosurgery clinic at [phone]. Discharge Follow-Up: Future Appointments Provider Department Center 10/03/2023 11:00 AM (Arrive by 10:45 AM) Svitlana Olmos MD [facility] 10/20/2023 10:30 AM NEUROSURGERY MIGU[facility] Neurosurgery/Ortho [address] [address] 12/06/2023 10:20 AM Jg Munguia MD [facility] Neurosurgery/Ortho [address] 01/03/2024 11:[address]; EXAM [facility] also instructed to call clinic or hospital for any questions or concerns. Patient was instructed that if there is any change in neurological status, signs of infection, or any other concerns, to contact our service immediately. Patient verbalizes understanding and states no further questions at this time. Patient seen and discussed with Dr. Munguia, who agrees with the above stated plan. Hina Nielson PA-C Neurosurgery documented in this encounter Discharge Instructions * Discharge Instr - Other Orders* Hina Flood, IRINA - 09/21/2023 7:16 AM CDT Fall Prevention Recommendations Follow therapy recommendations around equipment use and activity progression Remove trip hazards to keep pathways clear in the home Remove throw rugs Keep frequently used items in easy to reach places Use non-slip mats in the bathtub and on shower floors Improve lighting in your home in all areas Wear shoes or non-slip footwear inside the house * Discharge Instr - Safety* Domenica Wesley RN - 09/21/2023 7:16 AM CDT Call your clinic or seek medical help if you have any sudden change in your condition or if you have any of the following: chest pain difficulty breathing fever greater than 101.5 degrees F pain not relieved with usual methods shortness of breath documented in this encounter Medications at Time of Discharge Medication Sig Dispensed Refills Start Date End Date acetaminophen (TYLENOL) 325 MG tablet Take 1-2 Tablets (325-650 mg) by mouth every 6 hours as needed for Pain. 45 Tablet 1 06/16/2023 acyclovir (ZOVIRAX) 400 MG tabletIndications:Re current cold sores Take 1 Tablet (400 mg) by mouth three times a day as needed. 15 Tablet 3 03/24/2022 ascorbic acid (AKA VITAMIN C) 500 MG tablet Take 2 Tablets (1,000 mg) by mouth daily. 06/01/2005 Calcium Carbonate (CALCIUM 500 OR) Cholecalciferol (VITAMIN D-3 OR) dexAMETHasone (DECADRON) 2 MG tablet Take 1 tablet (2 mg) by mouth twice daily on 09/21/23. Then, take 1 tablet (2 mg) daily on 09/22/23, then stop. 3 Tablet 09/20/2023 famotidine (PEPCID) 20 MG tablet Take 1 Tablet (20 mg) by mouth two times a day before meals. 6 Tablet 09/21/2023 Garlic (ODOR FREE GARLIC) 100 MG Take 1 Tablet (100 mg) by mouth daily. Do not start before September 28, 2023. 09/28/2023 ibuprofen (MOTRIN) 600 MG tablet Take 1 Tablet (600 mg) by mouth every 6 hours as needed for Pain. Do not start before September 28, 2023. 09/28/2023 levETIRAcetam (KEPPRA) 500 MG tablet Take 1 Tablet (500 mg) by mouth two times a day for 7 days. 14 Tablet 09/20/2023 09/29/2023 Multiple Vitamins-Minerals (MULTIVITAMIN OR) Take 1 tablet by mouth daily (every 24 hours). 100 13 06/01/2005 [place]-3 Fatty Acids (FISH OIL) 1000 MG capsule Take 1 Capsule (1,000 mg) by mouth daily. Do not start before September 28, 2023. 09/28/2023 sennosides-docusate sodium (SENOKOT S) 8.6-50 MG per tabletIndications:Co nstipation Take 2 Tablets by mouth two times daily as needed for Constipation. Indications: Constipation 60 Tablet 09/20/2023 traZODone (DESYREL) 100 MG tabletIndications:Ch ronic insomnia Take 2 Tablets (200 mg) by mouth daily at bedtime. 180 Tablet 3 08/31/2023 varenicline (CHANTIX) 1 MG tabletIndications:To bacco abuse (HRC) Take 1 Tablet (1 mg) by mouth two times a day. Take after eating with a full glass of water.NOTE:Dispense as maintenance for refills only. 180 Tablet 3 05/25/2023 hydrOXYzine pamoate (VISTARIL) 50 MG capsule Take 1 Capsule (50 mg) by mouth every 6 hours as needed for Pain. 16 Capsule 09/22/2023 09/26/2023 methocarbamol (ROBAXIN) 500 MG tablet Take 1 Tablet (500 mg) by mouth 4 times daily as needed. 30 Tablet 09/22/2023 09/26/2023 oxyCODONE (ROXICODONE) 5 MG immediate release tablet Take 1-2 Tablets (5-10 mg) by mouth every 6 hours as needed for Pain. 25 Tablet 09/22/2023 09/26/2023 documented as of this encounter Progress Notes * Juan Dudley MD - 09/22/2023 8:53 AM CDT [facility] General Medicine / Hospitalist Staff Progress Note Patient: Ruthann Rosas : 1965 PCP: Svitlana Olmos MD [facility]* ATT: Jg Munguia MD DOS: 09/22/2023 LOS: 8 HPI: Ruthann Rosas is a 58 year old female with PMH of meningioma s/p eyebrow craniotomy on 09/13. Medicine consulted for bradycardia. Patient reports she got a little dizzy when she was getting up today. If stays on top of the medications, pain is about a 4. Has been having some shortness of breath even prior to surgery. No chest pain. States her resting HR is usually in the 70s. Does have familial history of hypertrophic cardiomyopathy. Had surgery and pacemaker placement. She had a screening stress echo years ago. Patient now with heart rates 40-50s. In review of tele, appears sinus. EKG today with sinus bradycardia. 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 Medicine consulted for bradycardia. Bradycardia: appears to be asymptomatic. No signs of heart block. Office HRs 79- 83. EKGs 59-64. Post-op last procedure: 58-63. Family with history of HCM HR 40-50s. Reports baseline resting Tele and EKG without signs of heart block. Not on any rate altering meds. No chest pains. Has had some sob prior to surgery, none since. --continue telemetry --Echo w/o HOCM nor LVH, no abnormalities or WMA --discussed case with EP, rec follow up with PCP unless abnormalities on holter --will need holter monitor upon discharge (ordered) MEDICINE Discharge Orders (Non-med) Primary Care Follow-Up Comments: Primary Care Provider: Svitlana Olmos MD References: Referral [facility] Brisa Rodriguez Consult Page Question Answer Comment Appointment Urgency? Non-Urgent What type of follow up? IP Discharge Reason for visit? f/u meningioma resection, bradycardia (holter monitor ordered) Outpatient Appt Need? Hospital Follow up Discharge Instructions to Patient Comments: MEDICINE CONSULT INSTRUCTIONS: So glad that you're recovering well from surgery. Regarding your bradycardia, reviewed your case with EP cardiology. They agree with current plan for monitoring since there are no blocks on EKG and you are asymptomatic. If this changes, then they would intervene. Please follow up with your PCP after your Holter monitor to review results. Take good care, Heriberto Dudley MD (Voy-tek) [facility] Medicine Event Monitor References: Referral [facility] Brisa Rodriguez Consult Page Question Answer Comment Appointment Urgency? Urgent (patient needs to be seen within one week) Location: [facility] Is patient appropriate candidate for self hookup of monitor? Yes Does this patient have a pacemaker No Diagnosis: Shortness of Breath Diagnosis: Other, please specify in comments Reason for visit? bradycardia, 1 weeks monitor Malnutrition: at risk for malnutrition. See dietitian's plan of care. Other issues stable. Plan discussed with patient/family. CODE: Full Code Prophylaxis: lovenox Diet: Regular Diet Dispo: OK to DC from medicine perspective Future Appointments Date Time Provider Department Center 10/20/2023 10:30 AM NEUROSURGERY [facility] [address] 12/06/2023 10:20 AM Jg Munguia MD [facility] [place] [address] 01/03/2024 11:20 AM Latha Burns, [facility] AV GD AV Dental Billing based on: Time Total time for the visit was 50 minutes including, but not limited to, bnm-glkn-qb-face time spent reviewing records, counseling, and coordination of care. Heriberto (Joan-angelica) MD [facility] Medicine Medications: acetaminophen 1,000 mg Oral TID Adult Magnesium Replacement Protocol: goal 2 mg/dL Miscellaneous Q8H Adult Phosphorus Replacement Protocol: goal 2 mg/dL Miscellaneous Q8H Adult Potassium Replacement Protocol: goal 3.5 mmol/L Miscellaneous Q8H bacitracin Topical TID dexAMETHasone 2 mg Oral Daily enoxaparin 40 mg Subcutaneous Q24H famotidine 20 mg Oral BID before meals insulin lispro 1-5 Units Subcutaneous TID with meals And insulin lispro 1-4 Units Subcutaneous At Bedtime levETIRAcetam 500 mg Oral BID lidocaine 30 mL Intradermal Embossing Machine Operator Helper methocarbamol 500 mg Oral QID polyethylene glycol 17 g Oral Daily sennosides-docusate sodium 2 Tablet Oral BID traZODone 200 mg Oral At Bedtime varenicline 1 mg Oral Daily with meal PRN: senna AND polyethylene glycol AND bisacodyl, glucose OR dextrose OR glucagon rDNA (diagnostic), hydrALAZINE, hydrOXYzine pamoate, labetalol, naloxone, oxyCODONE S: No acute events overnight. Reported some blurred vision, comes and goes. NS to look into this. No other neurological symptoms. Pain regimen perfect today. Asymptomatic bradycardia. To get monitor prior to DC. Denies CP, SOB. No lightheadedness. No nausea, vomiting. Reviewed results, work up, risks/benefits. Last Bowel Movement: 09/13/23 O: Most Recent Vital Signs: Min and Max Vital Signs (24 hours): Temp: 98.1 ??F (36.7 ??C) BP: 107/71 Pulse: (!) 50 Resp: 17 SpO2: 96 % Oxygen Therapy Device (Oxygen Therapy): room air Flow (L/min): 0 Temp Min: 97.5 ??F (36.4 ??C) Max: 98.7 ??F (37.1 ??C) BP Min: 100/66 Max: 110/75 Pulse Min: 50 Max: 50 Resp Min: 17 Max: 18 SpO2 Min: 94 % Max: 96 % Exam: Constitutional: 58 y.o. female in NAD Eyes: Anicteric, extraocular movements are intact, eyebrow incision clean and dry ENT: Moist mucous membranes Respiratory: Clear to auscultation bilaterally Cardiovascular: Regular rate and rhythm, no MRG GI: Soft nontender nondistended, positive bowel sounds : Deferred MSK: Normal musculature no obvious abnormalities Neuro: Alert, oriented, follows directions and no obvious focal deficits Heme/lymph/imm: Deferred Skin: No obvious rashes Psych: Normal affect, congruent mood Weights Intake and Output No data found. Intake/Output Summary (Last 24 hours) at 09/22/2023 0853 Last data filed at 09/21/2023 0957 Gross per 24 hour Intake 240 ml Output -- Net 240 ml Labs/imaging: CBC Recent Labs 09/16/23 0629 09/17/23 0627 09/18/23 0900 09/19/23 0628 WBC 14.8* 11.0* 9.1 10.6* RBC 4.02 4.00 4.48 4.49 HGB 11.3* 11.3* 12.7 12.7 HCT 35.3 34.5* 38.8 38.3 MCV 87.8 86.3 86.6 85.3 MCH 28.1 28.3 28.3 28.3 MCHC 32.0 32.8 32.7 33.2 RDW 13.7 13.6 13.4 13.2 PLTS 204 211 221 266 BMP Recent Labs 09/16/23 0629 09/17/23 0627 09/18/23 0900 09/19/23 0628 09/21/23 0629 SODIUM 140 139 136 136 136 K 4.0 4.1 4.0 4.3 4.5 CHLORIDE 108 109 105 104 104 BUN 14 14 14 13 17 CREATININE 0.55 0.54* 0.59 0.55 0.61 GLUCOSE 133* 121* 107* 95 94 CA 9.4 9.6 9.5 9.4 9.5 PHOS 2.4 3.4 2.9 3.2 -- LFTs Recent Labs 09/20/23 0639 ALKPHOS 71 AST 10 ALT 28 BILIRUBINTOT 0.2 ALB 3.5 INR/PTT Recent Labs 09/14/23 0552 INR 1.0 PANCNo results for input(s): LIPASE in the last 1500 hours. Invalid input(s): AMYLASE * Juan Dudley MD - 09/21/2023 4:24 PM CDT [facility] General Medicine / Hospitalist Staff Progress Note Patient: Ruthann Rosas : 1965 PCP: Svitlana Olmos MD [facility]* ATT: Jg Munguia MD DOS: 09/21/2023 LOS: 7 HPI: Ruthann Rosas is a 58 year old female with PMH of meningioma s/p eyebrow craniotomy on 09/13. Medicine consulted for bradycardia. Patient reports she got a little dizzy when she was getting up today. If stays on top of the medications, pain is about a 4. Has been having some shortness of breath even prior to surgery. No chest pain. States her resting HR is usually in the 70s. Does have familial history of hypertrophic cardiomyopathy. Had surgery and pacemaker placement. She had a screening stress echo years ago. Patient now with heart rates 40-50s. In review of tele, appears sinus. EKG today with sinus bradycardia. 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 Medicine consulted for bradycardia. Bradycardia: appears to be asymptomatic. No signs of heart block. Office HRs 79- 83. EKGs 59-64. Post-op last procedure: 58-63. Family with history of HCM HR 40-50s. Reports baseline resting Tele and EKG without signs of heart block. Not on any rate altering meds. No chest pains. Has had some sob prior to surgery, none since. --continue telemetry --Echo w/o HOCM nor LVH, no abnormalities or WMA --discussed case with EP, rec follow up with PCP unless abnormalities on holter --will need holter monitor upon discharge (ordered) Malnutrition: at risk for malnutrition. See dietitian's plan of care. Other issues stable. Plan discussed with patient/family. CODE: Full Code Prophylaxis: lovenox Diet: Regular Diet Dispo: OK to DC from medicine perspective Future Appointments Date Time Provider Department Center 10/20/2023 10:30 AM [facility]OSURGERY [facility] [address] 12/06/2023 10:20 AM Jg Munguia MD [facility] ([place] [place]) [address] 01/03/2024 11:20 AM Latha Burns, JD AV GD AV Dental Billing based on: Time Total time for the visit was 50 minutes including, but not limited to, ele-twig-il-face time spent reviewing records, counseling, and coordination of care. Heriberto (Marlo Dudley MD [facility] Medicine Medications: acetaminophen 1,000 mg Oral TID Adult Magnesium Replacement Protocol: goal 2 mg/dL Miscellaneous Q8H Adult Phosphorus Replacement Protocol: goal 2 mg/dL Miscellaneous Q8H Adult Potassium Replacement Protocol: goal 3.5 mmol/L Miscellaneous Q8H bacitracin Topical TID bisacodyl 10 mg Rectal Once dexAMETHasone 2 mg Oral Q12H And [START ON 09/22/2023] dexAMETHasone 2 mg Oral Daily enoxaparin 40 mg Subcutaneous Q24H famotidine 20 mg Oral BID before meals insulin lispro 1-5 Units Subcutaneous TID with meals And insulin lispro 1-4 Units Subcutaneous At Bedtime levETIRAcetam 500 mg Oral BID lidocaine 30 mL Intradermal Embossing Machine Operator Helper methocarbamol 500 mg Oral QID polyethylene glycol 17 g Oral Daily sennosides-docusate sodium 2 Tablet Oral BID traZODone 200 mg Oral At Bedtime varenicline 1 mg Oral Daily with meal PRN: senna AND polyethylene glycol AND bisacodyl, glucose OR dextrose OR glucagon rDNA (diagnostic), hydrALAZINE, hydrOXYzine pamoate, labetalol, naloxone, oxyCODONE S: No acute events overnight. Feeling well. Pain better today. Went for a walk while on tele. Asymptomatic. HRs got into 70s. Denies CP, SOB. No lightheadedness. No nausea, vomiting. Reviewed results, work up, risks/benefits. Last Bowel Movement: 09/13/23 O: Most Recent Vital Signs: Min and Max Vital Signs (24 hours): Temp: 98.7 ??F (37.1 ??C) BP: 104/63 Pulse: (!) 50 Resp: 18 SpO2: 95 % Oxygen Therapy Device (Oxygen Therapy): room air Flow (L/min): 0 Temp Min: 97.5 ??F (36.4 ??C) Max: 98.7 ??F (37.1 ??C) BP Min: 102/66 Max: 112/75 Pulse Min: 48 Max: 50 Resp Min: 16 Max: 18 SpO2 Min: 93 % Max: 95 % Exam: Constitutional: 58 y.o. female in NAD Eyes: Anicteric, extraocular movements are intact, eyebrow incision clean and dry ENT: Moist mucous membranes Respiratory: Clear to auscultation bilaterally Cardiovascular: Regular rate and rhythm, no MRG GI: Soft nontender nondistended, positive bowel sounds : Deferred MSK: Normal musculature no obvious abnormalities Neuro: Alert, oriented, follows directions and no obvious focal deficits Heme/lymph/imm: Deferred Skin: No obvious rashes Psych: Normal affect, congruent mood Weights Intake and Output No data found. Intake/Output Summary (Last 24 hours) at 09/21/2023 1624 Last data filed at 09/21/2023 0957 Gross per 24 hour Intake 240 ml Output -- Net 240 ml Labs/imaging: CBC Recent Labs 09/16/23 0629 09/17/23 0627 09/18/23 0900 09/19/23 0628 WBC 14.8* 11.0* 9.1 10.6* RBC 4.02 4.00 4.48 4.49 HGB 11.3* 11.3* 12.7 12.7 HCT 35.3 34.5* 38.8 38.3 MCV 87.8 86.3 86.6 85.3 MCH 28.1 28.3 28.3 28.3 MCHC 32.0 32.8 32.7 33.2 RDW 13.7 13.6 13.4 13.2 PLTS 204 211 221 266 BMP Recent Labs 09/16/23 0629 09/17/23 0609/18/23 0909/19/23 0628 09/21/23 0629 SODIUM 140 139 136 136 136 K 4.0 4.1 4.0 4.3 4.5 CHLORIDE 108 109 105 104 104 BUN 14 14 14 13 17 CREATININE 0.55 0.54* 0.59 0.55 0.61 GLUCOSE 133* 121* 107* 95 94 CA 9.4 9.6 9.5 9.4 9.5 PHOS 2.4 3.4 2.9 3.2 -- LFTs Recent Labs 09/20/23 0639 ALKPHOS 71 AST 10 ALT 28 BILIRUBINTOT 0.2 ALB 3.5 INR/PTT Recent Labs 09/14/23 0552 INR 1.0 PANCNo results for input(s): LIPASE in the last 1500 hours. 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 Munguia on 09/14/23. Plan: - Neurosurgery primary - Appreciate NCC assistance with management - Ok for floor w/ tele, q4hr neuro checks - Sinus ck - will cont to monitor closely, currently asymptomatic, hospital medicine consulted for further evaluation, appreciate their recs, awaiting discharge clearance from bradycardia standpoint - MR reviewed and with expected post-op changes - Ok to liberalize BP requirements - HOB >30 - Keppra 500mg BID x2 weeks - Decadron 1 week taper, pepcid 20mg BID while on steroids - Multimodal pain control - continue current regimen - Regular diet, bowel regimen - OOB with PT/OT as able - SCDs in bed, lovenox 40mg daily - Incision - bacitracin to wound BID (order placed), ok for open to air as long as no evidence of compromise, Dr. Munguia to remove eyebrow sutures prior to discharge, s/p R sided staple removal - Dispo pending clinical course Patient was discussed with Dr Munguia, who agrees with the above stated plan Hina Nielson PA-C 09/21/2023, 3:59 PM Neurosurgery Subjective: No acute neurosurgical events overnight. Patient reporting an ongoing headache this morning with occasional spots in her vision. She reports poor pain management yesterday. She denies vision changes, dizziness, nausea, vomiting, new numbness, tingling, weakness. Objective: Vitals - BP 104/63 (BP Cuff Size: Regular) Pulse (!) 50 Temp 98.7 ??F (37.1 ??C) (Oral) Resp 18 Ht 5' 5 (1.651 m) Wt 74.4 kg (164 lb) SpO2 95% BMI 27.29 kg/m?? Temp (24hrs), Av.2 ??F (36.8 ??C), Min:97.5 ??F (36.4 ??C), Max:98.7 ??F (37.1 ??C) Physical Exam - Alertness: A&Ox3, following complex commands General: in no acute distress Respiratory: Breathing unlabored Neuro: EOMI, face symmetric, tongue midline, hearing and speech intact Strength: HERNANDEZ without focal weakness/deficit Sensation: SILT Incision: incision with sutures in place, clean, dry and intact, no signs or symptoms of infection. Imaging: (all below imaging studies were reviewed independently) MR Brain W/WO 09/15/23 IMPRESSION: 1. Postoperative changes of planum sphenoidale meningioma resection. No evidence for residual tumor. 2. Small amount of cytotoxic edema within the right greater than left frontal lobes adjacent to theresection cavity. LABS: Hemoglobin Date Value Ref Range Status 09/19/2023 12.7 12.0 - 15.5 g/dL Final Normal: 12-17 Sodium Date Value Ref Range Status 09/21/2023 136 136 - 145 mmol/L Final INR Date Value Ref Range Status 09/14/2023 1.0 0.9 - 1.1 Final Platelets Date Value Ref Range Status 09/19/2023 266 150 - 450 x10(9)/L Final * Svitlana Bazan APRN, COMPUTER TECHNICIAN - 09/20/2023 11:27 AM CDT [facility] Inpatient Neurosurgery Daily Progress Note Today's Date: 09/20/2023 Neurosurgeon Attending: Dr. Munguia Procedure: Procedure(s) (LRB): Stealth guided Medial Eyebrow Craniotomy for Meningioma Resection. (Right) IMAGE GUIDANCE ADD ON NEURO (*) (N/A) Date of Procedure: 09/14/2023 Post-Op Day: 6 Days Post-Op Primary Service: Neurosurgery For questions, please contact primary service. Assessment: Ruthann Rosas is POD #6 S/P Stealth-Guided Medial Eyebrow Craniotomy for Right Meningioma Resection. Post-operative Bradycardia with normal TTE. Ongoing Post-Operative Headaches/Pain. Cranial Plan: Post-op Brain Tumor Resection Level of Care: General cares Vital Signs and Neuro Checks: Q 4 HR Hemodynamic Goals: SBP < 160 mmHg TTE Completed w/ EF 70%; No RWMA; No Valvular Disease Post-Operative Imaging: No Additional Post-Op Imaging Needed Activity: HOB > 30 Degrees and Progress as Tolerated Pain Control: Increased Vistaril to 50 mg Q 6 HR PRN; Increased Oxycodone to 5- 10 mg Q 3 HR PRN Steroids: On Decadron 2 mg BID; Last Dose 09/23/2023 ; On Pepcid 20 mg BID concurrently Anti- Epileptics: Keppra 500 BID for 14 days Diet Progression to Regular Diet; Bowel Regimen; Increased Senna to 2 Tablets BID DVT Prophylaxis: SCDs to BLE; Lovenox 40 mg Q 24 HR PT/OT Evaluations ongoing; Completed; No Needs Identified Maintain incision open to air; Dr. Munguia will remove sutures on 09/21/23 prior to discharge or in clinic on 09/22/23 Neurosurgery Follow-Up: 2 Weeks for Wound Evaluation and in 3 months with a repeat MRI Brain w/ andw/o Contrast Disposition: 10S; Plan to D/C Home 09/21/2023 The patient was reviewed and discussed with Dr. Munguia, who agrees with the above stated plan. Svitlana Bazan, DATABASE DESIGNER, COMPUTER TECHNICIAN 09/20/2023, 11:28 AM Neurosurgery Service Pager [phone] Subjective: No Acute Events Overnight. Juwan reports ongoing headaches that she describes as deep and throbbing. Her current dosages of pain medications have not been effective. She expressed hesitancy in discharging home today given her ongoing level of pain. Her current pain level is 6/10 on the VAS. She is eating and drinking well. She is voiding and passing gas. She has not yet had a bowel m ovement. Relevant Clinical Events: No Acute Events Overnight. Objective: Vitals - BP 123/74 Pulse (!) 45 Temp 98.2 ??F (36.8 ??C) (Oral) Resp 19 Ht 5' 5 (1.651 m) Wt 74.4kg (164 lb) SpO2 94% BMI 27.29 kg/m?? Temp (24hrs), Av.9 ??F (36.6 ??C), Min:97.7 ??F (36.5 ??C), Max:98.2 ??F (36.8 ??C) LABS: Hemoglobin Date Value Ref Range Status 09/19/2023 12.7 12.0 - 15.5 g/dL Final Normal: 12-17 Sodium Date Value Ref Range Status 09/19/2023 136 136 - 145 mmol/L Final INR Date Value Ref Range Status 09/14/2023 1.0 0.9 - 1.1 Final Platelets Date Value Ref Range Status 09/19/2023 266 150 - 450 x10(9)/L Final Physical Exam - Alertness: Alert/oriented x 3 General: In no acute distress Respiratory: Breathing unlabored on Room Air Abdomen: No distention noted; Soft and non-tender Cranial Nerves: Pupils 3 mm and Reactive to Light; EOMI; PERRLA; Facial movement is symmetric; Facial Sensation is intact to LT in Bilateral V1-V3 Distributions; Tongue midline; Hearing Intact to Conversation; Shoulder Shrug 5/5 Speech: Clear; No Aphasia Motor: 4+/5 in RUE 2/2 Right Rotator Cuff (Prior Surgery), otherwise 5/5 in LUE and BLE Sensation: Baseline tingling in right forearm and hand, otherwise intact to LT in BUE and BLE Incision: Medial Eyebrow Incision is Clean, Dry and Intact with Sutures; No Redness, swelling, or drainage present Imaging: (all below imaging studies were reviewed independently) No results found for this or any previous visit from the past 2 days. TTE (09/19/2023): Summary 1. Patient is bradycardic in the 40's during the study. 2. Normal LV size with normal wall thickness. Calculated biplane LVEF 70%. No regional wall motion abnormalities. (Normal function). Normal diastolic function. 3. Normal RV size with normal systolic function. 4. No significant valvular abnormalities. 5. A prior study is not available for comparison. Total time spent with the patient was 30 minutes of which more than 50% was used in reviewing documentation/chart and imaging, coordination of care, and counseling time, including discussion of prognosis and various surgical and non- surgical treatment options and associated risks. * Juan Dudley MD - 09/20/2023 9:39 AM CDT [facility] General Medicine / Hospitalist Staff Progress Note Patient: Ruthann Rosas : 1965 PCP: Svitlana Olmos MD [facility]* ATT: Jg Munguia MD DOS: 09/20/2023 LOS: 6 HPI: Ruthann Rosas is a 58 year old female with PMH of meningioma s/p eyebrow craniotomy on 09/13. Medicine consulted for bradycardia. Patient reports she got a little dizzy when she was getting up today. If stays on top of the medications, pain is about a 4. Has been having some shortness of breath even prior to surgery. No chest pain. States her resting HR is usually in the 70s. Does have familial history of hypertrophic cardiomyopathy. Had surgery and pacemaker placement. She had a screening stress echo years ago. Patient now with heart rates 40-50s. In review of tele, appears sinus. EKG today with sinus bradycardia. 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 Medicine consulted for bradycardia. Bradycardia: appears to be asymptomatic. No signs of heart block. Office HRs 79- 83. EKGs 59-64. Post-op last procedure: 58-63. Family with history of HCM HR 40-50s. Reports baseline resting Tele and EKG without signs of heart block. Not on any rate altering meds. No chest pains. Has had some sob prior to surgery. --continue telemetry --Echo w/o HOCM nor LVH, no abnormalities or WMA --Consider EP consult pending the above --will need holter monitor upon discharge (ordered) Malnutrition: at risk for malnutrition. See dietitian's plan of care. Other issues stable. Plan discussed with patient/family. CODE: Full Code Prophylaxis: lovenox Diet: Regular Diet Dispo: possible DC tomorrow pending pain control, bradycardia stability/improvement Future Appointments Date Time Provider Department Center 10/20/2023 10:30 [facility] 12/06/2023 10:20 AM [facility] [address] 01/03/2024 11:20 AM Latha Burns, [facility] AV GD AV Dental Billing based on: Time Total time for the visit was 50 minutes including, but not limited to, izc-kzwt-it-face time spent reviewing records, counseling, and coordination of care. Heriberto Rivera-ramon Dudley MD [facility] Medicine Medications: acetaminophen 1,000 mg Oral TID Adult Magnesium Replacement Protocol: goal 2 mg/dL Miscellaneous Q8H Adult Phosphorus Replacement Protocol: goal 2 mg/dL Miscellaneous Q8H Adult Potassium Replacement Protocol: goal 3.5 mmol/L Miscellaneous Q8H bacitracin Topical TID dexAMETHasone 2 mg Oral Q12H And [START ON 09/22/2023] dexAMETHasone 2 mg Oral Daily enoxaparin 40 mg Subcutaneous Q24H famotidine 20 mg Oral BID before meals insulin lispro 1-5 Units Subcutaneous TID with meals And insulin lispro 1-4 Units Subcutaneous At Bedtime levETIRAcetam 500 mg Oral BID lidocaine 30 mL Intradermal Embossing Machine Operator Helper methocarbamol 500 mg Oral QID polyethylene glycol 17 g Oral Daily sennosides-docusate sodium 2 Tablet Oral BID traZODone 200 mg Oral At Bedtime varenicline 1 mg Oral Daily with meal PRN: senna AND polyethylene glycol AND bisacodyl, glucose OR dextrose OR glucagon rDNA (diagnostic), hydrALAZINE, hydrOXYzine pamoate, labetalol, naloxone, oxyCODONE S: No acute events overnight. Feeling well. Denies CP, SOB. No lightheadedness. No nausea, vomiting. Reviewed results, work up, risks/benefits. Last Bowel Movement: 09/13/23 O: Most Recent Vital Signs: Min and Max Vital Signs (24 hours): Temp: 98.2 ??F (36.8 ??C) BP: 123/74 Pulse: (!) 55 Resp: 19 SpO2: 94 % Oxygen Therapy Device (Oxygen Therapy): room air Flow (L/min): 0 Temp Min: 97.7 ??F (36.5 ??C) Max: 98.2 ??F (36.8 ??C) BP Min: 117/77 Max: 137/78 Pulse Min: 45 Max: 65 Resp Min: 18 Max: 19 SpO2 Min: 93 % Max: 96 % Exam: Constitutional: 58 y.o. female in NAD Eyes: Anicteric, extraocular movements are intact, eyebrow incision clean and dry ENT: Moist mucous membranes Respiratory: Clear to auscultation bilaterally Cardiovascular: Regular rate and rhythm, no MRG GI: Soft nontender nondistended, positive bowel sounds : Deferred MSK: Normal musculature no obvious abnormalities Neuro: Alert, oriented, follows directions and no obvious focal deficits Heme/lymph/imm: Deferred Skin: No obvious rashes Psych: Normal affect, congruent mood Weights Intake and Output No data found. No intake or output data in the 24 hours ending 09/20/23 0941 Labs/imaging: CBC Recent Labs 09/16/23 0629 09/17/23 0609/18/23 0909/19/23 0628 WBC 14.8* 11.0* 9.1 10.6* RBC 4.02 4.00 4.48 4.49 HGB 11.3* 11.3* 12.7 12.7 HCT 35.3 34.5* 38.8 38.3 MCV 87.8 86.3 86.6 85.3 MCH 28.1 28.3 28.3 28.3 MCHC 32.0 32.8 32.7 33.2 RDW 13.7 13.6 13.4 13.2 PLTS 204 211 221 266 BMP Recent Labs 09/16/23 0629 09/17/23 0627 09/18/23 0909/19/23 0628 SODIUM 140 139 136 136 K 4.0 4.1 4.0 4.3 CHLORIDE 108 109 105 104 BUN 14 14 14 13 CREATININE 0.55 0.54* 0.59 0.55 GLUCOSE 133* 121* 107* 95 CA 9.4 9.6 9.5 9.4 PHOS 2.4 3.4 2.9 3.2 LFTs Recent Labs 09/20/23 0639 ALKPHOS 71 AST 10 ALT 28 BILIRUBINTOT 0.2 ALB 3.5 INR/PTT Recent Labs 09/14/23 0552 INR 1.0 PANCNo results for input(s): LIPASE in the last 1500 hours. Invalid input(s): AMYLASE * Hina Nielson PA-C - 09/19/2023 8:14 AM CDT Neurosurgery Progress Note [facility] Date of service: 09/19/2023 Assessment 58 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 Munguia on 09/14/23. Plan: - Neurosurgery primary - Appreciate NCC assistance with management - Ok for floor w/ tele, q4hr neuro checks - Sinus ck - will cont to monitor closely, currently asymptomatic, hospital medicine consulted for further evaluation - MR reviewed and with expected post-op changes - Ok to liberalize BP requirements - HOB >30 - Keppra 500mg BID x2 weeks - Decadron 1 week taper, pepcid 20mg BID while on steroids - Multimodal pain control - continue current regimen - Regular diet, bowel regimen - OOB with PT/OT as able - SCDs in bed, lovenox 40mg daily - Incision - bacitracin to wound BID (order placed), ok for open to air as long as no evidence of compromise, sutures to stay in place until follow up with Dr. Munguia in one week, R sided mickie removed at bedside today - Dispo pending clinical course Patient was seen and discussed with Dr Munguia, who agrees with the above stated plan Hina Nielson PA-C 09/19/2023, 8:14 AM Neurosurgery Subjective: No acute neurosurgical events overnight. Pt reports a continued headache that she reports is being well managed by pain medications. She denies changes in vision, dizziness, N/V, new numbness/tingling/weakness. Discussed plan for medicine consult for bradycardia eval and patient endorses her brother has HOCM and needed a pacemaker post-surgery. Objective: Vitals - BP 131/85 (BP Cuff Size: Regular) Pulse (!) 58 Temp 98.5 ??F (36.9 ??C) (Oral) Resp 18 Ht 5' 5 (1.651 m) Wt 74.4 kg (164 lb) SpO2 95% BMI 27.29 kg/m?? Temp (24hrs), Av.1 ??F (36.7 ??C), Min:97.7 ??F (36.5 ??C), Max:98.5 ??F (36.9 ??C) Physical Exam - Alertness: A&Ox3, following complex commands General: in no acute distress Respiratory: Breathing unlabored Neuro: EOMI, face symmetric, tongue midline, hearing and speech intact Strength: HERNANDEZ without focal weakness/deficit Sensation: SILT Incision: incision with sutures in place, clean, dry and intact, no signs or symptoms of infection.R sided scalp stapled removed at bedside. Imaging: (all below imaging studies were reviewed independently) MR Brain W/WO 09/15/23 IMPRESSION: 1. Postoperative changes of planum sphenoidale meningioma resection. No evidence for residual tumor. 2. Small amount of cytotoxic edema within the right greater than left frontal lobes adjacent to theresection cavity. LABS: Hemoglobin Date Value Ref Range Status 09/19/2023 12.7 12.0 - 15.5 g/dL Final Normal: 12-17 Sodium Date Value Ref Range Status 09/19/2023 136 136 - 145 mmol/L Final INR Date Value Ref Range Status 09/14/2023 1.0 0.9 - 1.1 Final Platelets Date Value Ref Range Status 09/19/2023 266 150 - 450 x10(9)/L Final * Therese Dela Cruz, DATABASE DESIGNER, COMPUTER TECHNICIAN - 09/18/2023 8:05 AM CDT Neurosurgery Progress Note Date of service: 09/18/2023 Subjective: Head pressure/pain continues with chewing or any movement. Concerned with blood pressure and low heart rate. Reports low HR is not normal for her. Had been keeping a close eye on her higher blood pressures outpatient. Objective: Vitals - BP (!) 147/90 (BP Cuff Size: Regular) Pulse (!) 45 Temp 97.7 ??F (36.5 ??C) (Oral) Resp 17 Ht 5' 5 (1.651 m) Wt 74.4 kg (164 lb) SpO2 95% BMI 27.29 kg/m?? Temp (24hrs), Av.9 ??F (36.6 ??C), Min:97.6 ??F (36.4 ??C), Max:98.4 ??F (36.9 ??C) Physical Exam - Alertness: Alert/oriented x 3 and Follows commands EOMI Face symmetric Following commands General: in no acute distress Incision: clean, dry and intact; open to air. Healing well Respiratory: Breathing unlabored Abdomen: no distention noted Strength: HERNANDEZ 5/5 BUE and BLE SILT Imaging: No new imaging LABS: Hemoglobin Date Value Ref Range Status 09/17/2023 11.3 (L) 12.0 - 15.5 g/dL Final Normal: 12-17 Sodium Date Value Ref Range Status 09/17/2023 139 136 - 145 mmol/L Final INR Date Value Ref Range Status 09/14/2023 1.0 0.9 - 1.1 Final Platelets Date Value Ref Range Status 09/17/2023 211 150 - 450 x10(9)/L Final Assessment 58 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 Munguia on 09/14/23. Plan: - Neurosurgery primary - General cares, q4hr neuro checks - Sinus ck - will cont to monitor closely, currently asymptomatic - MR reviewed and with expected post-op changes - Ok to liberalize BP requirements - HOB >30 - Keppra 500mg BID x2 weeks - Decadron 4mg q8hr with 1 week taper, pepcid 20mg BID while on steroids - Multimodal pain control - continue current regimen - Regular diet, bowel regimen - OOB with PT/OT as able - SCDs in bed, lovenox 40mg daily (ordered for 1999) - Incision - bacitracin to wound BID (order placed), ok for open to air as long as no evidence of compromise, sutures to stay in place until follow up with Dr. Munguia in one week, R sided mickie in place and to be removed prior to discharge - Will continue to monitor BP and HR - may need close outpatient follow up or medicine consult. Discussed to limit narcotics if able - Dispo pending progress with therapies, she reports she has help at home set up for Tuesday Patient discussed with Dr Su, who agrees with the above stated plan Therese Dela Cruz, DELMY, COMPUTER TECHNICIAN, 09/18/2023, 8:06 AM Neurosurgery Pager# [phone] * Therese Dela Cruz APRN, CNP - 09/17/2023 12:28 PM CDT Neurosurgery Progress Note Date of service: 09/17/2023 Subjective: Feels some pressure in her head when standing Objective: Vitals - BP (!) 140/90 (BP Cuff Size: Regular) Pulse (!) 161 Temp 97.7 ??F (36.5 ??C) (Oral) Resp 17 Ht 5' 5 (1.651 m) Wt 74.4 kg (164 lb) SpO2 (!) 90% BMI 27.29 kg/m?? Temp (24hrs), Av.1 ??F (36.7 ??C), Min:97.7 ??F (36.5 ??C), Max:98.4 ??F (36.9 ??C) Physical Exam - Alertness: Alert/oriented x 3 and Follows commands Face symmetric General: in no acute distress Incision: clean, dry and intact; open to air. Mickie Respiratory: Breathing unlabored Abdomen: no distention noted Strength: HERNANDEZ 5/5 BUE and BLE SILT Imaging: No new LABS: Hemoglobin Date Value Ref Range Status 09/17/2023 11.3 (L) 12.0 - 15.5 g/dL Final Normal: 12-17 Sodium Date Value Ref Range Status 09/17/2023 139 136 - 145 mmol/L Final INR Date Value Ref Range Status 09/14/2023 1.0 0.9 - 1.1 Final Platelets Date Value Ref Range Status 09/17/2023 211 150 - 450 x10(9)/L Final Assessment 58 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 Munguia on 09/14/23. Plan: - Neurosurgery primary - General cares, q4hr neuro checks - Sinus ck - will cont to monitor closely, currently asymptomatic - MR reviewed and with expected post-op changes - Ok to liberalize BP requirements - HOB >30 - Keppra 500mg BID x2 weeks - Decadron 4mg q8hr with 1 week taper, pepcid 20mg BID while on steroids - Multimodal pain control - continue current regimen - Regular diet, bowel regimen - OOB with PT/OT as able - SCDs in bed, lovenox 40mg daily (ordered for 1999) - Incision - bacitracin to wound BID (order placed), ok for open to air as long as no evidence of compromise, sutures to stay in place until follow up with Dr. Munguia in one week, R sided mickie in place and to be removed prior to discharge - Dispo pending progress with therapies, she reports she has help at home set up for Tuesday Patient was seen and discussed with Dr Su, who agrees with the above stated plan Therese Dela Cruz APRN, JASON, 09/17/2023, 12:28 PM Neurosurgery Pager# [phone] t * Hina Nielson PA-C - 09/16/2023 7:32 AM CDT Neurosurgery Progress Note [facility] Date of service: 09/16/2023 Assessment 58 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 Munguia on 09/14/23. Plan: - Neurosurgery primary - Appreciate NCC assistance with management - Ok for floor w/ tele, q4hr neuro checks - Sinus ck - will cont to monitor closely, currently asymptomatic - MR reviewed and with expected post-op changes - Ok to liberalize BP requirements - HOB >30 - Keppra 500mg BID x2 weeks - Decadron 4mg q8hr with 1 week taper, pepcid 20mg BID while on steroids - Multimodal pain control - continue current regimen - Regular diet, bowel regimen - OOB with PT/OT as able - SCDs in bed, lovenox 40mg daily (ordered for 1999) - Incision - bacitracin to wound BID (order placed), ok for open to air as long as no evidence of compromise, sutures to stay in place until follow up with Dr. Munguia in one week, R sided mickie in place and to be removed prior to discharge - Dispo pending progress with therapies, she reports she has help at home set up for Tuesday Patient was seen and discussed with Dr Munguia, who agrees with the above stated plan Hina Nielson PA-C 09/16/2023, 7:32 AM Neurosurgery Subjective: No acute neurosurgical events overnight. Patient endorses a continued headache but reports prn medication provide adequate relief. Denies vision changes, dizziness, new numbness/tingling (reports baseline R hand N/T from previous shoulder injury), weakness. Reports she has help at home set up for Tuesday. Objective: Vitals - BP 134/86 Pulse (!) 49 Temp 98.2 ??F (36.8 ??C) (Oral) Resp 17 Ht 5' 5 (1.651 m) Wt 74.4kg (164 lb) SpO2 94% BMI 27.29 kg/m?? Temp (24hrs), Av.4 ??F (36.9 ??C), Min:97.5 ??F (36.4 ??C), Max:98.8 ??F (37.1 ??C) Physical Exam - Alertness: A&Ox3, following complex commands General: in no acute distress Respiratory: Breathing unlabored Neuro: EOMI, face symmetric, tongue midline, hearing and speech intact Strength: HERNANDEZ without focal weakness/deficit Sensation: SILT Incision: incision with sutures in place, clean, dry and intact, no signs or symptoms of infection Imaging: (all below imaging studies were reviewed independently) MR Brain W/WO 09/15/23 IMPRESSION: 1. Postoperative changes of planum sphenoidale meningioma resection. No evidence for residual tumor. 2. Small amount of cytotoxic edema within the right greater than left frontal lobes adjacent to theresection cavity. LABS: Hemoglobin Date Value Ref Range Status 09/16/2023 11.3 (L) 12.0 - 15.5 g/dL Final Normal: 12-17 Sodium Date Value Ref Range Status 09/15/2023 138 136 - 145 mmol/L Final INR Date Value Ref Range Status 09/14/2023 1.0 0.9 - 1.1 Final Platelets Date Value Ref Range Status 09/16/2023 204 150 - 450 x10(9)/L Final * Hina Nielson PA-C - 09/15/2023 2:12 PM CDT Neurosurgery Progress Note [facility] Date of service: 09/15/2023 Assessment 58 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 Munguia on 09/14/23. Plan: - Neurosurgery primary - Appreciate NCC assistance with management - Ok for transfer to the floor with progressive cares, q2hr neuro checks - MR reviewed and with expected post-op changes - Ok to liberalize BP requirements - HOB >30 - Keppra 500mg BID x2 weeks - Decadron 4mg q8hr with 1 week taper, pepcid 20mg BID while on steroids - Multimodal pain control - tylenol changed to scheduled TID and addition of robaxin, vistaril - Regular diet, bowel regimen - OOB with PT/OT as able - Post-op dressing removed at bedside, bacitracin to wound BID (order placed), ok for open to air as long as no evidence of compromise, sutures to stay in place until follow up with Dr. Munguia in oneweek - Dispo pending progress with therapies Patient was discussed with Dr Munguia, who agrees with the above stated plan Hina Nielson PA-C 09/15/2023, 2:12 PM Neurosurgery Subjective: No acute neurosurgical events overnight. Upon initial visit, patient reports feeling like shit and endorsing a headache. Denies changes in vision, dizziness, new numbness/tingling/weakness of extremities. Does endorse baseline RUE tingling from recent shoulder injury. Upon visit this afternoon, patient reports some improvement from the am. Objective: Vitals - BP 113/70 Pulse 64 Temp 97.5 ??F (36.4 ??C) (Oral) Resp 16 Ht 5' 5 (1.651 m) Wt 74.4 kg (164 lb) SpO2 95% BMI 27.29 kg/m?? Temp (24hrs), Av.5 ??F (36.9 ??C), Min:97.5 ??F (36.4 ??C), Max:99 ??F (37.2 ??C) Physical Exam - Alertness: A&Ox3, following complex commands General: in no acute distress Respiratory: Breathing unlabored Neuro: EOMI, face symmetric, tongue midline, hearing and speech intact Strength: HERNANDEZ without focal weakness/deficit Sensation: SILT Incision: post-op dressing removed at bedside, incision with sutures in place, clean, dry and intact, no signs or symptoms of infection Imaging: (all below imaging studies were reviewed independently) MR Brain W/WO 09/15/23 IMPRESSION: 1. Postoperative changes of planum sphenoidale meningioma resection. No evidence for residual tumor. 2. Small amount of cytotoxic edema within the right greater than left frontal lobes adjacent to theresection cavity. LABS: Hemoglobin Date Value Ref Range Status 09/15/2023 11.8 (L) 12.0 - 15.5 g/dL Final Normal: 12-17 Sodium Date Value Ref Range Status 09/15/2023 138 136 - 145 mmol/L Final INR Date Value Ref Range Status 09/14/2023 1.0 0.9 - 1.1 Final Platelets Date Value Ref Range Status 09/15/2023 229 150 - 450 x10(9)/L Final * Muna Bishop RN - 09/14/2023 4:23 PM CDT I completed a full assessment and assessments as ordered and per policy on this patient during my work shift. Reassessments completed during my work shift are unchanged unless documented. * Nicole Fox RN - 09/14/2023 1:28 PM CDT I completed a full assessment and assessments as ordered and per policy on this patient during my work shift. Reassessments completed during my work shift are unchanged unless documented. documented in this encounter Procedure Notes * Jg Munguia MD - 09/14/2023 12:45 PM CDT [facility] Brief Operative Progress Note Surgery Date: 09/14/2023 Surgeons and Role: * Jg Munguia MD - Primary Visitor: MRI/Stealth Personnel - Maik Rogers Pre-op Diagnosis: * Olfactory groove and planum sphenoidale meningioma(HRC) [D32.9] Post-op Diagnosis: * Olfactory groove and planum sphenoidale meningioma (HRC) [D32.9] Procedures with associated lateralities: Procedure(s) (LRB): Stealth guided Medial Eyebrow Craniotomy for Meningioma Resection. (Right) Cranioplasty - exenteration of frontal sinus IMAGE GUIDANCE ADD ON NEURO (*) (N/A) EBL: 50 mL Specimens: ID Type Source Tests Collected by Time Destination 1 : Anterior Skull Based Meningioma Tissue Brain SURGICAL PATHOLOGY Jg Munguia MD 130 Complications / Findings: none / gross total resection Plan: -SICU -SBP <130 -HOB >30 degrees - Keppra for 2 weeks -Steroid taper 1 week -Ceftriaxone for 24 hors -Brain MRI tomorrow Jg Munguia MD 09/14/2023, 12:49 PM documented in this encounter Consult Notes * Chiquita Gaffney MD - 09/19/2023 1:31 PM CDTAssociated Order(s): INTERNAL MEDICINE CONSULT [facility] Medicine Consultation Date of Service: 09/19/2023 Chief Complaint: bradycardia History of present illness: Ruthann Rosas is a 58 year old female with PMH of meningioma s/p eyebrow craniotomy on 09/13. Medicine consulted for bradycardia. Patient reports she got a little dizzy when she was getting up today. If stays on top of the medications, pain is about a 4. Has been having some shortness of breath even prior to surgery. No chest pain. States her resting HR is usually in the 70s. Does have familial history of hypertrophic cardiomyopathy. Had surgery and pacemaker placement. She had a screening stress echo years ago. Patient now with heart rates 40-50s. In review of tele, appears sinus. EKG today with sinus bradycardia. Past Medical History: Diagnosis Date Dermatitis Eyelid #*LW 3 01/28/2006 Multiparity Grand w Preg #*LW 2 08/27/2003 Tobacco Abuse #*LW 1 08/04/2002 Varicella Past Surgical History: Procedure Laterality Date ROTATOR CUFF REPAIR Right 05/2023 Family History Problem Relation Age of Onset Cancer, Breast Maternal Grandmother br ca age?? 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 Tobacco Use Smoking status: Every Day Current packs/day: 0.00 Average packs/day: 1 pack/day for 40.2 years (40.2 ttl pk-yrs) Types: Cigarettes Start date: 02/28/1979 Last attempt to quit: 05/30/2019 Years since quittin.3 Smokeless tobacco: Never Tobacco comments: Smoking History Packs/day: quit 06/13/2023 Vaping Use Vaping status: Never Used Substance and Sexual Activity Alcohol use: No Drug use: No Sexual activity: Not Currently control/protection: None Current outpatient medications: acetaminophen (TYLENOL) 325 MG tablet, Take 1-2 Tablets (325-650 mg) by mouth every 6 hours as needed for Pain., Disp: 45 Tablet, Rfl: 1 acyclovir (ZOVIRAX) 400 MG tablet, Take 1 Tablet (400 mg) by mouth three times a day as needed., Disp: 15 Tablet, Rfl: 3 ascorbic acid (AKA VITAMIN C) 500 MG tablet, Take 2 Tablets (1,000 mg) by mouth daily., Disp: , Rfl: Calcium Carbonate (CALCIUM 500 OR), , Disp: , Rfl: Cholecalciferol (VITAMIN D-3 OR), , Disp: , Rfl: ibuprofen (MOTRIN) 600 MG tablet, Take 1 Tablet (600 mg) by mouth every 6 hours as needed for Pain., Disp: 40 Tablet, Rfl: 0 Multiple Vitamins-Minerals (MULTIVITAMIN OR), Take 1 tablet by mouth daily (every 24 hours)., Disp:100, Rfl: 13 ODOR FREE GARLIC OR, Take by mouth daily (every 24 hours)., Disp: , Rfl: senna (SENNA LAXATIVE) 8.6 MG tablet, Take 1 Tablet by mouth daily., Disp: 50 Tablet, Rfl: 0 traZODone (DESYREL) 100 MG tablet, Take 2 Tablets (200 mg) by mouth daily at bedtime., Disp: 180 Tablet, Rfl: 3 triamcinolone acetonide (KENALOG) 0.1 % ointment, Apply topically two times a day. Use on hand dermatits, taper to once a day as improves. Not for use on normal skin, face, or skin folds., Disp: 80 g, Rfl: 2 varenicline (CHANTIX) 1 MG tablet, Take 1 Tablet (1 mg) by mouth two times a day. Take after eatingwith a full glass of water.NOTE:Dispense as maintenance for refills only., Disp: 180 Tablet, Rfl: 3 Allergies: Patient has no known allergies. Review of Systems: Complete ROS was negative other than stated in HPI Physical Examination: Temp (24hrs), Av.1 ??F (36.7 ??C), Min:97.8 ??F (36.6 ??C), Max:98.5 ??F (36.9 ??C) Heart Rate (24hrs)Temp: 97.8 ??F (36.6 ??C)Pulse: (!) 48BP: (!) 142/86Resp: 19 General: Alert, resting comfortably in bed, no distress HEENT: mmm, eyebrow incision clean and dry Chest: clear to auscultation bilaterally Cardiovascular: regular, ck, no m/r/g Abdomen: non-distended /Rectal: Deferred Musculoskeletal: no atrophy Extremities: Warm, no LE edema Skin: warm, dry. Neurological: Alert and oriented x3, speech is fluent, face symmetric, hernandez Labs: Recent Labs 09/17/23 0627 09/18/23 0900 09/19/23 0628 SODIUM 139 136 136 K 4.1 4.0 4.3 CHLORIDE 109 105 104 BUN 14 14 13 CREATININE 0.54* 0.59 0.55 GLUCOSE 121* 107* 95 Recent Labs 09/17/23 0627 09/18/23 0900 09/19/23 0628 WBC 11.0* 9.1 10.6* HGB 11.3* 12.7 12.7 HCT 34.5* 38.8 38.3 EKG: sinus bradycardia, HR 53, LVH Assessment and Plan: Ruthann Rosas is a 58 year old female with PMH of meningioma s/p eyebrow craniotomy on 09/13. Medicine consulted for bradycardia. Bradycardia: Family with history of HCM HR 40-50s. Reports baseline resting Tele and EKG without signs of heart block. Not on any rate altering meds. No chest pains. Has had some sob prior to surgery. --continue telemetry --Recommend Echo, especially given family history --Consider EP consult pending the above --will need holter monitor upon discharge (ordered) Chiquita Gaffney MD [facility] Medicine * Matthieu Mazariegos PA-C - 09/15/2023 11:32 AM CDT NEUROLOGICAL CONSULTATION NOTE Patient Information: Ruthann Rosas 58 y.o. Date of visit: 09/15/23 IMPRESSION: - Extra axial mass along the planum sphenoidale s/p eyebrow craniotomy for resection by Dr. Munguia - Post concussive syndrome - Recent right rotator cuff surgery - post op headache - History of tobacco use RECOMMENDATIONS/PLANS: Neuro: - Appropriate for transfer to general care with Neurosurgery primary - SBP < 130 - HOB>30 degrees - Avoid hyponatremia, Na goal 135-145 - Post op MRI with expected post surgical changes - STAT CTH with change in neuro exam - AEDs per neurosurgery. No current indication for EEG - Steroids per neurosurgery - Tyelnol and oxycodone for pain - GRAIN MERCHANDISER Chantix for smoking cessation - PT/OT/ANIMAL HUSBANDMAN/Rehab Cardio: - BP above - Labetalol and hydralazine as needed - Some soft blood pressures overnight and into the morning. Neuro exam stable, renal function normal, and urine output adequate. Will continue to monitor. - Telemetry while in ICU - No current indication for TTE Resp: - Unlabored on room air - ABG and chest xray as indicated GI: - Regular diet - No current indication for GI ulcer ppx - Antiemetics and bowel regimen as needed Renal: - Monitor BUN/Cr - Sodium management above - ICU electrolyte protocol - No indication for indwelling catheter Endo: - ISS and hypoglycemia protocol while on steroids. Discontinue if not requiring Heme: - Monitor counts/coags - SCDs. Chemical DVT ppx per NS ID: - Monitor fever curve/WBC. Mild leukocytosis, 16.4, likely 2/2 to decadron and recent surgery - Perioperative abx per NS - No current evidence of active infection - Tylenol as needed for fever T/L/Ds PIVs Dispo: Transfer to floor Matthieu Mazariegos PA-C Department of Neurology CHIEF COMPLAINT: Post op tumor resection HISTORY OF PRESENT ILLNESS: 58 y.o. 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 Munguia. The lesion was incidentally identified on an MRI brain 05/31 that she underwent as part of a concussion work up. The concussion occurred 2/2 to her dropping a heavy mirror on her head. No evidence of hemorrhageor other acute intracranial pathology. She had a clinic visit with Dr. Munguia and ultimately decided to pursue surgical resection due to the lesions location,size, and adjacent edema. She will be admitted to the Neuro ICU post op for close monitoring. ICU Course: 09/13: Post op tumor resection. [facility] admission 718: No acute events overnight. Some soft blood pressures, asymptomatic. Pain/nausea controlled. Appropriate for transfer to the floor. PAST MEDICAL HISTORY: Past Medical History: Diagnosis Date Dermatitis Eyelid #*LW 3 01/28/2006 Multiparity Grand w Preg #*LW 2 08/27/2003 Tobacco Abuse #*LW 1 08/04/2002 Varicella Patient Active Problem List Diagnosis Recurrent cold sores Endometrial polyp Chronic insomnia FHx: colonic polyps Traumatic complete tear of right rotator cuff Meningioma (HRC) Post-op pain Eye swelling, bilateral Cerebral edema (HRC) Coordination of complex care SURGICAL HISTORY: Past Surgical History: Procedure Laterality Date ROTATOR CUFF REPAIR Right 05/2023 SOCIAL HISTORY: Social History Tobacco Use Smoking status: Every Day Current packs/day: 0.00 Average packs/day: 1 pack/day for 40.2 years (40.2 ttl pk-yrs) Types: Cigarettes Start date: 02/28/1979 Last attempt to quit: 05/30/2019 Years since quittin.2 Smokeless tobacco: Never Tobacco comments: Smoking History Packs/day: quit 06/13/2023 Vaping Use Vaping status: Never Used Substance Use Topics Alcohol use: No Drug use: No FAMILY HISTORY: Family History Problem Relation Age of Onset Cancer, Breast Maternal Grandmother br ca age?? after menopause Cancer Mother Dementia Mother Cancer, Ovary Paternal Grandmother Cancer, Colon Negative Family History Diethylstilbestrol Exposure Negative Family History Cancer, Endometrial Negative Family History ALLERGIES: No Known Allergies HOME MEDICATIONS: No current outpatient medications on file. ROS: Complete Review of Systems is negative, unless noted in HPI EXAMINATION: Vitals: 09/15/23 0930 BP: Pulse: (!) 54 Resp: 16 Temp: 74.4 kg (164 lb) Estimated body mass index is 27.29 kg/m?? as calculated from the following: Height as of this encounter: 5' 5 (1.651 m). Weight as of this encounter: 74.4 kg (164 lb). Physical exam: General: NAD. Resting comfortably in bed. Head wrap in place Lungs: Unlabored on room air. Symmetrical chest rise Heart: RRR Abdo: ND Neuro: Awake, alert and oriented x4. EOMI. No gaze preference or visual field cut. Speech is clear,coherent and fluent. Antigravity throughout bilateral upper and lower extremities. Light touch sensation intact throughout. OTHER DATA: Imaging: Personally and independently reviewed: MR Brain W/WO IV Cont IMPRESSION: 3 x 3 x 3 cm enhancing extra-axial mass along the planum sphenoidale in the midline with local mass effect and adjacent parenchymal edema as detailed above. No evidence of abnormal enhancement within the right frontal lobe parenchyma. Overall findings are consistent with a meningioma. Edema within the right frontal lobe may be secondary to local mass effect or may be indicative of early aggressive features with local parenchymal invasion. LABORATORY FINDINGS: No results found for: B12 TSH, Sensitive Date Value Ref Range Status 03/24/2022 2.78 0.30 - 4.50 uIU/mL Final Hemoglobin A1C Date Value Ref Range Status 03/24/2022 6.0 (H) <=5.6 % Final LDL, Calculated Date Value Ref Range Status 03/24/2022 99 <130 mg/dL Final Associated attestation - Aretha Morales MBBS - 09/15/2023 3:51 PM CDT Date of service: 09/15/2023 Pt seen with Matthieu. Note reviewed Overnight intermittent low BP. Got 1.5l fluid bolus. Good UOP. Mental status ok. No signs of hypoperfusion. MRI completed. No issues post op Na 138. WBC 16.45. Tm 37.2 Patient is awake, alert and fully oriented.Speech clear. Pupils equal, round and reactive. Eyelid less swollen. Visual tobar full. Faces symmetric. Follows commands. Moves all extremities. Feels equally on all extremities. Plan- Continue to monitor BP Will not aim for specific BP number if mental state, UOP normal. Fluid bolus if needed OK to go to S10- PCU if no further BP issues. Billing based on [facility] MAXIMUS Ceja, FAAN Critical care neurology [phone] * Aretha Morales MBBS - 09/14/2023 9:43 AM CDT NEUROLOGICAL CONSULTATION NOTE Patient Information: Ruthann Rosas 58 y.o. Date of visit: 09/14/23 IMPRESSION: - Extra axial mass along the planum sphenoidale s/p eyebrow craniotomy for resection by Dr. Munguia - Post concussive syndrome - Recent right rotator cuff surgery - post op headache RECOMMENDATIONS/PLANS: Neuro: - Q1 hour neuro checks - SBP < 130 - HOB>30 degrees - Avoid hyponatremia, Na goal 135-145 - Post op imaging per neurosurgery - STAT CTH with change in neuro exam - MRI brain in AM. - AEDs per neurosurgery. No current indication for EEG - Steroids per neurosurgery - Tyelnol and oxycodone for pain - PT/OT/ANIMAL HUSBANDMAN/Rehab Cardio: - BP above - Labetalol and hydralazine as needed - Nicardipine gtt if above ineffective. - Telemetry while in ICU - No current indication for TTE Resp: - Unlabored on room air - ABG and chest xray as indicated GI: - Regular diet once passes swallow eval - No current indication for GI ulcer ppx - Antiemetics and bowel regimen as needed Renal: - Monitor BUN/Cr - Sodium management above - ICU electrolyte protocol - No indication for indwelling catheter Endo: - ISS and hypoglycemia protocol. Discontinue if not requiring Heme: - Monitor counts/coags - SCDs. Chemical DVT ppx per NS ID: - Monitor fever curve/WBC - Perioperative abx per NS - No current evidence of active infection - Tylenol as needed for fever T/L/Ds PIVs Dispo: ICU. DW son and daughter at bedside The patient is critically ill with high probability of imminent or life threatening deterioration. This requires close medical/neurological monitoring. Critical care time is 35 minutes spent doing frequent neurological examination to detect early deterioration, optimizing hemodynamics, oxygenation,and volume status, reviewing chart, laboratory and radiolgical data, adjusting medications, documenting and coordinating patient's care. MAXIMUS Ceja, FAAN Critical care neurology [phone] CHIEF COMPLAINT: Post op tumor resection HISTORY OF PRESENT ILLNESS: 58 y.o. 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 Munguia. The lesion was incidentally identified on an MRI brain 05/31 that she underwent as part of a concussion work up. The concussion occurred 2/2 to her dropping a heavy mirror on her head. No evidence of hemorrhageor other acute intracranial pathology. She had a clinic visit with Dr. Munguia and ultimately decided to pursue surgical resection due to the lesions location,size, and adjacent edema. She will be admitted to the Neuro ICU post op for close monitoring. ICU Course: 09/13: Post op tumor resection. [facility] admission PAST MEDICAL HISTORY: Past Medical History: Diagnosis Date Dermatitis Eyelid #*LW 3 01/28/2006 Multiparity Grand w Preg #*LW 2 08/27/2003 Tobacco Abuse #*LW 1 08/04/2002 Varicella Patient Active Problem List Diagnosis Recurrent cold sores Endometrial polyp Chronic insomnia FHx: colonic polyps Traumatic complete tear of right rotator cuff Meningioma (HRC) SURGICAL HISTORY: Past Surgical History: Procedure Laterality Date ROTATOR CUFF REPAIR Right 05/2023 SOCIAL HISTORY: Social History Tobacco Use Smoking status: Every Day Current packs/day: 0.00 Average packs/day: 1 pack/day for 40.2 years (40.2 ttl pk-yrs) Types: Cigarettes Start date: 02/28/1979 Last attempt to quit: 05/30/2019 Years since quittin.2 Smokeless tobacco: Never Tobacco comments: Smoking History Packs/day: quit 06/13/2023 Vaping Use Vaping status: Never Used Substance Use Topics Alcohol use: No Drug use: No FAMILY HISTORY: Family History Problem Relation Age of Onset Cancer, Breast Maternal Grandmother br ca age?? after menopause Cancer Mother Dementia Mother Cancer, Ovary Paternal Grandmother Cancer, Colon Negative Family History Diethylstilbestrol Exposure Negative Family History Cancer, Endometrial Negative Family History ALLERGIES: No Known Allergies HOME MEDICATIONS: No current outpatient medications on file. ROS: Complete Review of Systems is negative, unless noted in HPI EXAMINATION: Vitals: 09/14/23 0547 BP: 122/74 Pulse: (!) 55 Resp: 16 Temp: 97 ??F (36.1 ??C) 74.4 kg (164 lb) Estimated body mass index is 27.29 kg/m?? as calculated from the following: Height as of this encounter: 5' 5 (1.651 m). Weight as of this encounter: 74.4 kg (164 lb). Physical exam: General: Mild discomfort due to headache. 4/10. Getting better. Lungs: Bilateral air entry Heart: Normal heart sounds Abdo: soft, Bowel sounds + Extremities: No edema Patient is sleepy, wakes up essily, fully oriented. Speech clear. Pupils equal, round and reactive.Eyelids swollen post op. Visual tobar full on bedside confrontation. Faces symmetric. Follows commands. Moves all extremities. Feels equally on all extremities. OTHER DATA: Imaging: Personally and independently reviewed: MR Brain W/WO IV Cont IMPRESSION: 3 x 3 x 3 cm enhancing extra-axial mass along the planum sphenoidale in the midline with local mass effect and adjacent parenchymal edema as detailed above. No evidence of abnormal enhancement within the right frontal lobe parenchyma. Overall findings are consistent with a meningioma. Edema within the right frontal lobe may be secondary to local mass effect or may be indicative of early aggressive features with local parenchymal invasion. LABORATORY FINDINGS: No results found for: B12 TSH, Sensitive Date Value Ref Range Status 03/24/2022 2.78 0.30 - 4.50 uIU/mL Final Hemoglobin A1C Date Value Ref Range Status 03/24/2022 6.0 (H) <=5.6 % Final LDL, Calculated Date Value Ref Range Status 03/24/2022 99 <130 mg/dL Final documented in this encounter Plan of Treatment Upcoming Encounters Date Type Department Care Team (Late st Contact Info) Description 09/29/2023 8:40 AM CDT Appointment [facility] Neurosurgery[facility]Ortho Spine [address] [facility] [place] [address] Nurse Visit 10/03/2023 11:00 AM CDT Appointment [facility] [address] [place] [address] JANET Pena [address] Svitlana Olmos MD [address] [place] [address] JANET LYONS [address] 10/20/2023 10:30 AM CDT Appointment [facility] [address] [place] [address] 12/06/2023 10:20 AM CDT Appointment [facility] Neurosurgery[facility]o Spine [address] [facility] 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 Appointment [facility] [place] [address] [place] [address] [place] [address] [place], [place] [id number] Scheduled Orders Name Type Priority Associated Diagnoses Orde r Schedule MR Brain W/WO IV Cont Imaging New Routine Meningioma (HRC) S/P craniotomy Expected: 12/15/2023 (Approximate), Expires: 12/14/2024 Scheduled Referrals Name Type Priority Associated Diagnoses Orde r Schedule Event Monitor Referral Routine Bradycardia, sinus Ordered: 09/19/2023 Primary Care Follow-Up Referral Routine Bradycardia, sinus Ordered: 09/22/2023 Neurosurgery Follow-Up Referral Routine Meningioma (HRC) Ordered: 09/22/2023 documented as of this encounter Procedures Procedure Name Priority Date/Time Associated Diagnosis Comments GLUCOSE, WHOLE BLOOD POCT Routine 09/22/2023 1:01 PM CDT GLUCOSE, WHOLE BLOOD POCT Routine 09/22/2023 7:31 AM CDT GLUCOSE, WHOLE BLOOD POCT Routine 09/21/2023 9:43 PM CDT GLUCOSE, WHOLE BLOOD POCT Routine 09/21/2023 5:04 PM CDT GLUCOSE, WHOLE BLOOD POCT Routine 09/21/2023 2:07 PM CDT GLUCOSE, WHOLE BLOOD POCT Routine 09/21/2023 8:12 AM CDT BASIC METABOLIC PANEL Routine 09/21/2023 6:29 AM CDT MAGNESIUM Routine 09/21/2023 6:29 AM CDT GLUCOSE, WHOLE BLOOD POCT Routine 09/20/2023 10:21 PM CDT GLUCOSE, WHOLE BLOOD POCT Routine 09/20/2023 3:23 PM CDT GLUCOSE, WHOLE BLOOD POCT Routine 09/20/2023 11:32 AM CDT GLUCOSE, WHOLE BLOOD POCT Routine 09/20/2023 7:42 AM CDT EXTRA LAVENDER TOP TUBE Routine 09/20/2023 6:39 AM CDT EXTRA TUBES Routine 09/20/2023 6:39 AM CDT LIVER PANEL(HEPATIC FUNCTION PANEL) Routine 09/20/2023 6:39 AM CDT GLUCOSE, WHOLE BLOOD POCT Routine 09/19/2023 10:59 PM CDT GLUCOSE, WHOLE BLOOD POCT Routine [...] BLOOD POCT Routine 09/19/2023 9:05 AM CDT LIPID PANEL & DIRECT LDL (IF NEEDED) Add-On 09/19/2023 6:28 AM CDT BASIC METABOLIC PANEL Routine 09/19/2023 6:28 AM CDT COMPLETE BLOOD COUNT-NO DIFF Routine 09/19/2023 6:28 AM CDT MAGNESIUM Routine 09/19/2023 6:28 AM CDT TSH, SENSITIVE (WITH REFLEX) Add-On 09/19/2023 6:28 AM CDT PHOSPHORUS Routine 09/19/2023 6:28 AM CDT GLUCOSE, WHOLE BLOOD POCT Routine 09/18/2023 9:25 PM CDT MAGNESIUM Specified Time 09/18/2023 6:10 PM CDT GLUCOSE, WHOLE BLOOD POCT Routine 09/18/2023 4:01 PM CDT GLUCOSE, WHOLE BLOOD POCT Routine 09/18/2023 12:37 PM CDT BASIC METABOLIC PANEL Routine 09/18/2023 9:00 AM CDT COMPLETE BLOOD COUNT-NO DIFF Routine 09/18/2023 9:00 AM CDT MAGNESIUM Routine 09/18/2023 9:00 AM CDT PHOSPHORUS Routine 09/18/2023 9:00 AM CDT GLUCOSE, WHOLE BLOOD POCT Routine 09/18/2023 7:40 AM CDT GLUCOSE, WHOLE BLOOD POCT Routine 09/17/2023 9:54 PM CDT GLUCOSE, WHOLE BLOOD POCT Routine 09/17/2023 8:32 AM CDT BASIC METABOLIC PANEL Routine 09/17/2023 6:27 AM CDT COMPLETE BLOOD COUNT-NO DIFF Routine 09/17/2023 6:27 AM CDT MAGNESIUM Routine 09/17/2023 6:27 AM CDT PHOSPHORUS Routine 09/17/2023 6:27 AM CDT GLUCOSE, WHOLE BLOOD POCT Routine 09/16/2023 9:46 PM CDT MAGNESIUM Routine 09/16/2023 6:49 PM CDT GLUCOSE, WHOLE BLOOD POCT Routine 09/16/2023 4:31 PM CDT GLUCOSE, WHOLE BLOOD POCT Routine 09/16/2023 12:03 PM CDT GLUCOSE, WHOLE BLOOD POCT Routine 09/16/2023 8:00 AM CDT BASIC METABOLIC PANEL Routine 09/16/2023 6:29 AM CDT COMPLETE BLOOD COUNT-NO DIFF Routine 09/16/2023 6:29 AM CDT MAGNESIUM Routine 09/16/2023 6:29 AM CDT PHOSPHORUS Routine 09/16/2023 6:29 AM CDT GLUCOSE, WHOLE BLOOD POCT Routine 09/15/2023 9:08 PM CDT GLUCOSE, WHOLE BLOOD POCT Routine 09/15/2023 4:59 PM CDT GLUCOSE, WHOLE BLOOD POCT Routine 09/15/2023 12:47 PM CDT GLUCOSE, WHOLE BLOOD POCT Routine 09/15/2023 8:29 AM CDT BASIC METABOLIC PANEL Routine 09/15/2023 3:43 AM CDT COMPLETE BLOOD COUNT-NO DIFF Routine 09/15/2023 3:43 AM CDT MAGNESIUM Routine 09/15/2023 3:43 AM CDT PHOSPHORUS Routine 09/15/2023 3:43 AM CDT MR BRAIN W/WO IV CONT Routine 09/15/2023 2:36 AM CDT GLUCOSE, WHOLE BLOOD POCT Routine 09/15/2023 12:35 AM CDT GLUCOSE, WHOLE BLOOD POCT Routine 09/14/2023 7:55 PM CDT MAGNESIUM STAT 09/14/2023 5:57 PM CDT POTASSIUM STAT 09/14/2023 5:57 PM CDT PHOSPHORUS STAT 09/14/2023 5:57 PM CDT GLUCOSE, WHOLE BLOOD POCT Routine 09/14/2023 5:36 PM CDT BASIC METABOLIC PANEL Routine 09/14/2023 1:50 PM CDT COMPLETE BLOOD COUNT-NO DIFF Routine 09/14/2023 1:50 PM CDT GLUCOSE, WHOLE BLOOD POCT Routine 09/14/2023 1:00 PM CDT SURGICAL PATHOLOGY Routine 09/14/2023 11 :30 AM CDT Meningioma (HRC) GLUCOSE, WHOLE BLOOD POCT Routine 09/14/2023 9:45 AM CDT IMAGE GUIDANCE ADD ON NEURO (*) AM Admit 09/14/2023 7:32 AM CDT Meningioma (HRC) CRANIOTOMY EXCISION MASS BRAIN AM Admit 09/14/2023 7:32 AM CDT Meningioma (HRC) GLUCOSE, WHOLE BLOOD POCT Routine 09/14/2023 5:59 AM CDT EXTRA PINK/BANK TUBE Routine 09/14/2023 5:56 AM CDT TYPE AND SCREEN Routine 09/14/2023 5:52 AM CDT ANTIBODY SCREEN Routine 09/14/2023 5:52 AM CDT BLOOD TYPE Routine 09/14/2023 5:52 AM CDT BASIC METABOLIC PANEL Routine 09/14/2023 5:52 AM CDT COMPLETE BLOOD COUNT-NO DIFF Routine 09/14/2023 5:52 AM CDT INR/PROTIME Routine 09/14/2023 5:52 AM CDT documented in this encounter Results * Glucose, Whole Blood POCT (09/22/2023 1:01 PM CDT) Glucose, Whole Blood 89 70 - 180 mg/dL 09/22/2023 1:03 PM CDT [facility] Performing Location Lab S104 09/22/2023 1:03 PM CDT [facility] Blood 09/22/2023 1:01 PM CDT 09/22/2023 1:03 PM CDT Jg Munguia MD LAB_1 Performing Organization Address [facility] Co de Phone Number [address] * Glucose, Whole Blood POCT (09/22/2023 7:31 AM CDT) Glucose, Whole Blood 96 70 - 180 mg/dL 09/22/2023 7:32 AM CDT [facility] Location RCLab S104 09/22/2023 7:32 AM CDT [facility] Blood 09/22/2023 7:31 AM CDT 09/22/2023 7:32 AM CDT Jg Munguia MD LAB_1 Performing Organization Address [facility] Co de Phone Number [address] * Glucose, Whole Blood POCT (09/21/2023 9:43 PM CDT) Glucose, Whole Blood 111 70 - 180 mg/dL 09/21/2023 9:44 PM CDT [facility] Performing Location Lab S104 09/21/2023 9:44 PM CDT [facility] Blood 09/21/2023 9:43 PM CDT 09/21/2023 9:44 PM CDT Jg Munguia MD LAB_1 Performing Organization Address [facility]/ZIP Co de Phone Number [address] * Glucose, Whole Blood POCT (09/21/2023 5:04 PM CDT) Glucose, Whole Blood 105 70 - 180 mg/dL 09/21/2023 5:06 PM CDT [facility] Performing Location RCLab S104 09/21/2023 5:06 PM CDT [facility] Blood 09/21/2023 5:04 PM CDT 09/21/2023 5:05 PM CDT Jg Munguia MD LAB_1 Performing Organization Address [facility] Co de Phone Number [address] * Glucose, Whole Blood POCT (09/21/2023 2:07 PM CDT) Glucose, Whole Blood 127 70 - 180 mg/dL 09/21/2023 2:08 PM CDT [facility] Performing Location RCLab S104 09/21/2023 2:08 PM CDT [facility] Blood 09/21/2023 2:07 PM CDT 09/21/2023 2:08 PM CDT Jg Munguia MD LAB_1 Performing Organization Address [facility] Co de Phone Number [address] * Glucose, Whole Blood POCT (09/21/2023 8:12 AM CDT) Glucose, Whole Blood 97 70 - 180 mg/dL 09/21/2023 8:13 AM CDT [facility] Performing Location RCLab S104 09/21/2023 8:13 AM CDT [facility] Blood 09/21/2023 8:12 AM CDT 09/21/2023 8:13 AM CDT Jg Munguia MD LAB_1 Performing Organization Address [facility]/[place] [address], [facility] * Magnesium (09/21/2023 6:29 AM CDT) Magnesium 2.1 1.6 - 2.6 mg/dL 09/21/2023 7:08 AM [facility] Blood Venipuncture / Unknown 09/21/2023 6:29 AM CDT 09/21/2023 6:35 AM CDT Juan Dudley MD LAB_[address] * Basic Metabolic Panel (09/21/2023 6:29 AM CDT) [facility] Sodium 136 136 - 145 mmol/L 09/21/2023 7:08 AM [facility] Potassium 4.5 3.5 - 5.1 mmol/L 09/21/2023 7:08 AM [facility] Chloride 104 98 - 109 mmol/L 09/21/2023 7:08 AM [facility] CO2 25 20 - 29 mmol/L 09/21/2023 7:08 AM [facility] Anion Gap 7 6 - 16 mmol/L 09/21/2023 7:08 AM [facility] Calcium 9.5 8.4 - 10.4 mg/dL 09/21/2023 7:08 AM [facility] BUN 17 7 - 26 mg/dL 09/21/2023 7:08 AM [facility] Creatinine 0.61 0.55 - 1.02 mg/dL 09/21/2023 7:08 AM [facility] Glucose 94 70 - 100 mg/dL 09/21/2023 7:08 AM [facility] Comment:The given reference range is for the fasting state. Non-fasting reference range for glucose is 70 - 180 mg/dL. GFR, Estimated >60 >60 mL/min/1.7 3m2 09/21/2023 7:08 AM [facility] Blood Venipuncture / Unknown 09/21/2023 6:29 AM CDT 09/21/2023 6:35 AM CDT Juan Dudley MD LAB_1 Performing Organization Address [facility]/ZIP Co de Phone Number [address] * Glucose, Whole Blood POCT (09/20/2023 10:21 PM CDT) Glucose, Whole Blood 93 70 - 180 mg/dL 09/20/2023 10:23 PM CDT [facility] Performing Location RCLab S104 09/20/2023 10:23 PM CDT [facility] Blood 09/20/2023 10:2 1 PM CDT 09/20/2023 10:23 PM CDT Jg Munguia MD LAB_1 Performing Organization Address [facility] Co de Phone [address] * Glucose, Whole Blood POCT (09/20/2023 3:23 PM CDT) Glucose, Whole Blood 116 70 - 180 mg/dL 09/20/2023 3:24 PM CDT [facility] Performing Location RCLab S104 09/20/2023 3:24 PM CDT [facility] Blood 09/20/2023 3:23 PM CDT 09/20/2023 3:24 PM CDT Jg Munguia MD LAB_1 Performing Organization Address [facility]/ZIP Co de Phone Number [address] * Glucose, Whole Blood POCT (09/20/2023 11:32 AM CDT) Glucose, Whole Blood 154 70 - 180 mg/dL 09/20/2023 11:34 AM CDT [facility] POCT Comment 1 MD/RN Notified 09/20/2023 11:34 AM CDT [facility] Performing Location RCLab S104 09/20/2023 11:34 AM CDT [facility] Blood 09/20/2023 11:3 2 AM CDT 09/20/2023 11:34 AM CDT Jg Munguia MD LAB_1 Performing Organization Address [facility]/ZIP Co de Phone Number [address] * Glucose, Whole Blood POCT (09/20/2023 7:42 AM CDT) Glucose, Whole Blood 101 70 - 180 mg/dL 09/20/2023 7:43 AM CDT [facility] Performing Location RCLab S104 09/20/2023 7:43 AM CDT [facility] Blood 09/20/2023 7:42 AM CDT 09/20/2023 7:43 AM CDT Jg Munguia MD LAB_1 Performing Organization Address [facility] Co de Phone Number [address] * Extra Lavender top tube (09/20/2023 6:39 AM CDT) Pathologist [facility] Extra Lavender Top Drawn Specimen will be held for 3 days 09/20/2023 8:00 AM CDT [facility] Blood Venipuncture / Unknown 09/20/2023 6:39 AM CDT 09/20/2023 6:59 AM CDT Jg Munguia MD LAB_1 Performing Organization Address [facility] Co de Phone Number [address] * Liver Panel(Hepatic Function Panel) (09/20/2023 6:39 AM CDT) Alkaline Phosphatase 71 40 - 150 U/L 09/20/2023 7:39 AM CDT [facility] Bilirubin, Total 0.2 0.2 - 1.2 mg/dL 09/20/2023 7:39 AM CDT [facility] Bilirubin, Direct 0.1 0.0 - 0.5 mg/dL 09/20/2023 7:39 AM CDT [facility] AST (SGOT) 10 10 - 40 U/L 09/20/2023 7:39 AM CDT [facility] ALT (SGPT) 28 <=55 U/L 09/20/2023 7:39 AM CDT [facility] Protein, Total 6.5 6.4 - 8.3 g/dL 09/20/2023 7:39 AM CDT [facility] Albumin 3.5 3.5 - 5.0 g/dL 09/20/2023 7:39 AM CDT [facility] Blood Venipuncture / Unknown 09/20/2023 6:39 AM CDT 09/20/2023 6:58 AM CDT Chiquita Smith MD LAB_[address] * Glucose, Whole Blood POCT (09/19/2023 10:59 PM CDT) Glucose, Whole Blood 95 70 - 180 mg/dL 09/19/2023 11:01 PM CDT [facility] Performing Location RCLab S104 09/19/2023 11:01 PM CDT [facility] Blood 09/19/2023 10:5 9 PM CDT 09/19/2023 11:00 PM CDT Jg Munguia MD LAB_[address] * Glucose, Whole Blood POCT (09/19/2023 6:13 PM CDT) Glucose, Whole Blood 98 70 - 180 mg/dL 09/19/2023 6:14 PM CDT [facility] Performing Location RCLab S104 09/19/2023 6:14 PM CDT [facility] Blood 09/19/2023 6:13 PM CDT 09/19/2023 6:14 PM CDT Jg Munguia MD LAB_[address] * EJECTION FRACTION (09/19/2023 1:43 PM CDT) EF 70 % PROSOLV EF test type ECHO PROSOLV 09/19/2023 1:43 PM CDT Chiquita Smith MD [facility] CATH LA B/RH Performing Organization Address [facility] Co de Phone Number PROSOLV [address] [place] [address] * Cardiac Routine Echocardiogram (09/19/2023 1:43 PM [...] MD [facility] ECHO/RH Performing Organization Address [facility] Co de Phone Number PROSOLV [address] [place] [address] * (ABNORMAL) Glucose, Whole Blood POCT (09/19/2023 12:03 PM CDT) Glucose, Whole Blood 186(H) 70 - 180 mg/dL 09/19/2023 12:04 PM CDT [facility] POCT Comment 1 MD/RN Notified 09/19/2023 12:04 PM CDT [facility] Performing Location RCLab S104 09/19/2023 12:04 PM CDT [facility] Blood 09/19/2023 12:0 3 PM CDT 09/19/2023 12:04 PM CDT Jg Munguia MD LAB_1 Performing Organization Address [facility] Co de Phone Number [address] * ECG 12-Lead Routine (Lab perform) (09/19/2023 9:43 AM CDT) EKG Completed 09/19/2023 12:00 PM CDT [facility] Other Specimen Type Non-blood Collection / Unknown 09/19/2023 9:43 AM CDT 09/19/2023 10:30 AM CDT Chiquita Smith MD LAB_1 Performing Organization Address [facility] Co de Phone Number [address] * Ecg 12-Lead Routine (MUSE) (09/19/2023 9:36 AM CDT) Ventricular Rate 53 BPM MUSE GHP Atrial Rate 53 BPM MUSE GHP P-R Interval 146 ms MUSE GHP QRS Duration 76 ms MUSE GHP QT 522 ms MUSE GHP QTc 489 ms MUSE GHP P [employer] [place] 27 degrees MUSE GHP R [employer] [place] 1 degrees MUSE GHP T [employer] 27 degrees MUSE GHP 09/19/2023 9:36 AM CDT Narrative MUSE GHP - 09/19/2023 10:23 AM CDT Sinus bradycardia Minimal voltage criteria for LVH, may be normal variant Cannot rule out Inferior infarct (cited on or before 26-DEC-2019) Abnormal ECG When compared with ECG of 31-AUG-2023 10:50, VA interval has decreased Confirmed by Anaid Garcia ([id number]) on 09/19/2023 10:23:02 AM Procedure Note Anaid Garcia MD - 09/19/2023 Sinus bradycardia Minimal voltage criteria for LVH, may be normal variant Cannot rule out Inferior infarct (cited on or before 26-DEC-2019) Abnormal ECG When compared with ECG of 31-AUG-2023 10:50, VA interval has decreased Confirmed by Anaid Garcia ([id number]) on 09/19/2023 10:23:02 AM Chiquita Smith MD EKG Performing Organization Address City/[facility]/ZIP Co de Phone Number [facility] [address] [place] [id number] * Glucose, Whole Blood POCT (09/19/2023 9:05 AM CDT) Glucose, Whole Blood 119 70 - 180 mg/dL 09/19/2023 9:06 AM [facility] Performing Location RCLab S104 09/19/2023 9:06 AM [facility] Blood 09/19/2023 9:05 AM CDT 09/19/2023 9:06 AM CDT Jg Munguia MD LAB_1 [facility] [address] [place] [address], [facility] * (ABNORMAL) Lipid Panel & Direct LDL (if Needed) (09/19/2023 6:28 AM CDT) Cholesterol 186 0 - 199 mg/dL 09/19/2023 10:55 PM [facility] Triglyceride 215(H) <=149 mg/dL 09/19/2023 10:55 PM [facility] HDL Cholesterol 37(L) >=40 mg/dL 10:55 PM [facility] LDL, Calculated 106 <130 mg/dL 10:55 PM [facility] Non HDL Chol, Calculated 149 <=159 mg/dL 09/19/2023 10:55 PM [facility] Cholesterol/HDL Ratio 5.0 <=5.0 09/19/2023 10:55 PM [facility] Blood Venipuncture / Unknown 09/19/2023 6:28 AM CDT 09/19/2023 6:59 AM CDT Chiquita Smith MD LAB_1 Performing Organization Address [facility]/ZIP Co de Phone Number [address] * TSH with reflex to fT4 (not for treatment monitoring) (09/19/2023 6:28 AM CDT) TSH, Reflex 0.92 0.30 - 4.50 uIU/mL 09/19/2023 11:13 PM [facility] Blood Venipuncture / Unknown 09/19/2023 6:28 AM CDT 09/19/2023 6:59 AM CDT Chiquita Smith MD LAB_1 Performing Organization Address [facility] Co de Phone Number [address] * (ABNORMAL) Complete Blood Count-No Diff (09/19/2023 6:28 AM CDT) WBC 10.6(H) 3.5 - 10.5 x10(9)/L 09/19/2023 7:12 AM [facility] RBC 4.49 3.90 - 5.03 x10(12)/L 09/19/2023 7:12 AM [facility] Hemoglobin 12.7 12.0 - 15.5 g/dL 09/19/2023 7:12 AM [facility] HCT 38.3 34.9 - 44.5 % 09/19/2023 7:12 AM [facility] MCV 85.3 80.0 - 100.0 fL 09/19/2023 7:12 AM [facility] MCH 28.3 27.6 - 33.3 pg 09/19/2023 7:12 AM [facility] MCHC 33.2 31.5 - 35.2 g/dL 09/19/2023 7:12 AM [facility] RDW 13.2 11.9 - 15.5 % 09/19/2023 7:12 AM [facility] Platelets 266 150 - 450 x10(9)/L 09/19/2023 7:12 AM [facility] Automated NRBC 0 <=0 /100 WBC 09/19/2023 7:12 AM [facility] Blood Venipuncture / Unknown 09/19/2023 6:28 AM CDT 09/19/2023 6:59 AM CDT Sherman Trivedi MD LAB_[address] [address], [facility] * Basic Metabolic Panel (09/19/2023 6:28 AM CDT) Sodium 136 136 - 145 mmol/L 09/19/2023 7:36 AM [facility] Potassium 4.3 3.5 - 5.1 mmol/L 09/19/2023 7:36 AM [facility] Chloride 104 98 - 109 mmol/L 09/19/2023 7:36 AM [facility] CO2 23 20 - 29 mmol/L 09/19/2023 7:36 AM [facility] Anion Gap 9 6 - 16 mmol/L 09/19/2023 7:36 AM [facility] Calcium 9.4 8.4 - 10.4 mg/dL 09/19/2023 7:36 AM [facility] BUN 13 7 - 26 mg/dL 09/19/2023 7:36 AM [facility] Creatinine 0.55 0.55 - 1.02 mg/dL 09/19/2023 7:36 AM [facility] Glucose 95 70 - 100 mg/dL 09/19/2023 7:36 AM [facility] Comment:The given reference range is for the fasting state. Non-fasting reference range for glucose is 70 - 180 mg/dL. GFR, Estimated >60 >60 mL/min/1.7 3m2 09/19/2023 7:36 AM [facility] Blood Venipuncture / Unknown 09/19/2023 6:28 AM CDT 09/19/2023 6:59 AM CDT Sherman Trivedi MD LAB_1 Performing Organization Address [facility] de Phone Number [address] * Phosphorus (09/19/2023 6:28 AM CDT) Phosphorus 3.2 2.3 - 4.7 mg/dL 09/19/2023 7:36 AM CDT [facility] Blood Venipuncture / Unknown 09/19/2023 6:28 AM CDT 09/19/2023 6:59 AM CDT Sherman Trivedi MD LAB_1 Performing Organization Address [facility]/[address] * Magnesium (09/19/2023 6:28 AM CDT) Magnesium 2.1 1.6 - 2.6 mg/dL 09/19/2023 7:36 AM CDT [facility] Blood Venipuncture / Unknown 09/19/2023 6:28 AM CDT 09/19/2023 6:59 AM CDT Sherman Trivedi MD LAB_1 Performing Organization Address [facility] de Phone Number [address] * Glucose, Whole Blood POCT (09/18/2023 9:25 PM CDT) Glucose, Whole Blood 102 70 - 180 mg/dL 09/18/2023 9:26 PM CDT [facility] Performing Location RCLab S104 09/18/2023 9:26 PM CDT [facility] Blood 09/18/2023 9:25 PM CDT 09/18/2023 9:26 PM CDT Jg Munguia MD LAB_1 Performing Organization Address [facility] Co de Phone Number [address] * Magnesium (09/18/2023 6:10 PM CDT) Magnesium 2.4 1.6 - 2.6 mg/dL 09/18/2023 6:41 PM CDT [facility] Blood Venipuncture / Unknown 09/18/2023 6:10 PM CDT 09/18/2023 6:13 PM CDT Jg Munguia MD LAB_[address] * Glucose, Whole Blood POCT (09/18/2023 4:01 PM CDT) Glucose, Whole Blood 95 70 - 180 mg/dL 09/18/2023 4:02 PM CDT [facility] Performing Location Lab S104 09/18/2023 4:02 PM CDT [facility] Blood 09/18/2023 4:01 PM CDT 09/18/2023 4:02 PM CDT Jg Munguia MD LAB_1 Performing Organization Address [facility]/ZIP Co de Phone Number [address] * Glucose, Whole Blood POCT (09/18/2023 12:37 PM CDT) Glucose, Whole Blood 142 70 - 180 mg/dL 09/18/2023 12:38 PM CDT [facility] Performing Location Lab S104 09/18/2023 12:38 PM CDT [facility] Blood 09/18/2023 12:3 7 PM CDT 09/18/2023 12:38 PM CDT Jg Munguia MD LAB_[address] * Complete Blood Count-No Diff (09/18/2023 9:00 AM CDT) WBC 9.1 3.5 - 10.5 x10(9)/L 09/18/2023 9:12 AM [facility] RBC 4.48 3.90 - 5.03 x10(12)/L 09/18/2023 9:12 AM [facility] Hemoglobin 12.7 12.0 - 15.5 g/dL 09/18/2023 9:12 AM [facility] HCT 38.8 34.9 - 44.5 % 09/18/2023 9:12 AM [facility] MCV 86.6 80.0 - 100.0 fL 09/18/2023 9:12 AM [facility] MCH 28.3 27.6 - 33.3 pg 09/18/2023 9:12 AM [facility] MCHC 32.7 31.5 - 35.2 g/dL 09/18/2023 9:12 AM [facility] RDW 13.4 11.9 - 15.5 % 09/18/2023 9:12 AM [facility] Platelets 221 150 - 450 x10(9)/L 09/18/2023 9:12 AM [facility] Automated NRBC 0 <=0 /100 WBC 09/18/2023 9:12 AM [facility] Blood Venipuncture / Unknown 09/18/2023 9:00 AM CDT 09/18/2023 9:08 AM CDT Sherman Trivedi MD LAB_1 Performing Organization Address [facility]/State/[facility] de Phone Number [address] * (ABNORMAL) Basic Metabolic Panel (09/18/2023 9:00 AM CDT) Sodium 136 136 - 145 mmol/L 09/18/2023 9:35 AM [facility] Potassium 4.0 3.5 - 5.1 mmol/L 09/18/2023 9:35 AM [facility] Comment:Specimen slightly he molyzed. Hemolysis may affect result. Chloride 105 98 - 109 mmol/L 09/18/2023 9:35 AM [facility] CO2 23 20 - 29 mmol/L 09/18/2023 9:35 AM [facility] Anion Gap 8 6 - 16 mmol/L 09/18/2023 9:35 AM [facility] Calcium 9.5 8.4 - 10.4 mg/dL 09/18/2023 9:35 AM [facility] BUN 14 7 - 26 mg/dL 09/18/2023 9:35 AM [facility] Creatinine 0.59 0.55 - 1.02 mg/dL 09/18/2023 9:35 AM [facility] Glucose 107(H) 70 - 100 mg/dL 09/18/2023 9:35 AM [facility] Comment:The given reference range is for the fasting state. Non-fasting reference range for glucose is 70 - 180 mg/dL. GFR, Estimated >60 >60 mL/min/1.7 3m2 09/18/2023 9:35 AM [facility] Blood Venipuncture / Unknown 09/18/2023 9:00 AM CDT 09/18/2023 9:08 AM CDT Sherman Trivedi MD LAB_1 Performing Organization Address City/[facility] Co de Phone Number [address] * Phosphorus (09/18/2023 9:00 AM CDT) Phosphorus 2.9 2.3 - 4.7 mg/dL 09/18/2023 9:35 AM [facility] Blood Venipuncture / Unknown 09/18/2023 9:00 AM CDT 09/18/2023 9:08 AM CDT Sherman Trivedi MD LAB_1 Performing Organization Address City/[facility] Co de Phone Number [address] * Magnesium (09/18/2023 9:00 AM CDT) Magnesium 1.9 1.6 - 2.6 mg/dL 09/18/2023 9:35 AM [facility] Blood Venipuncture / Unknown 09/18/2023 9:00 AM CDT 09/18/2023 9:08 AM CDT Sherman Trivedi MD LAB_1 Performing Organization Address [facility]/ZIP Co de Phone Number [address] * Glucose, Whole Blood POCT (09/18/2023 7:40 AM CDT) Glucose, Whole Blood 109 70 - 180 mg/dL 09/18/2023 7:41 AM CDT [facility] Performing Location RCLab S104 09/18/2023 7:41 AM CDT [facility] Blood 09/18/2023 7:40 AM CDT 09/18/2023 7:41 AM CDT Jg Munguia MD LAB_1 Performing Organization Address [facility] Co de Phone [address] * Glucose, Whole Blood POCT (09/17/2023 9:54 PM CDT) Glucose, Whole Blood 134 70 - 180 mg/dL 09/17/2023 9:55 PM CDT [facility] Performing Location RCLab S104 09/17/2023 9:55 PM CDT [facility] Blood 09/17/2023 9:54 PM CDT 09/17/2023 9:55 PM CDT Jg Munguia MD LAB_1 Performing Organization Address [facility] Co de Phone Number [address] * Glucose, Whole Blood POCT (09/17/2023 8:32 AM CDT) Glucose, Whole Blood 118 70 - 180 mg/dL 09/17/2023 8:34 AM CDT [facility] Performing Location RCLab S104 09/17/2023 8:34 AM CDT [facility] Blood 09/17/2023 8:32 AM CDT 09/17/2023 8:34 AM CDT Jg Munguia MD LAB_[address] * (ABNORMAL) Complete Blood Count-No Diff (09/17/2023 6:27 AM CDT) WBC 11.0(H) 3.5 - 10.5 x10(9)/L 09/17/2023 6:37 AM T [facility] RBC 4.00 3.90 - 5.03 x10(12)/L 09/17/2023 6:37 AM [facility] Hemoglobin 11.3(L) 12.0 - 15.5 g/dL 09/17/2023 6:37 AM [facility] HCT 34.5(L) 34.9 - 44.5 % 09/17/2023 6:37 AM [facility] MCV 86.3 80.0 - 100.0 fL 09/17/2023 6:37 AM [facility] MCH 28.3 27.6 - 33.3 pg 09/17/2023 6:37 AM [facility] MCHC 32.8 31.5 - 35.2 g/dL 09/17/2023 6:37 AM [facility] RDW 13.6 11.9 - 15.5 % 09/17/2023 6:37 AM [facility] Platelets 211 150 - 450 x10(9)/L 09/17/2023 6:37 AM [facility] Automated NRBC 0 <=0 /100 WBC 09/17/2023 6:37 AM [facility] Blood Venipuncture Butterfly / Unknown 09/17/2023 6:27 AM CDT 09/17/2023 6:32 AM CDT Sherman Trivedi MD LAB_[address] * (ABNORMAL) Basic Metabolic Panel (09/17/2023 6:27 AM CDT) Pathologist [facility] Sodium 139 136 - 145 mmol/L 09/17/2023 6:59 AM T [facility] Potassium 4.1 3.5 - 5.1 mmol/L 09/17/2023 6:59 AM [facility] Chloride 109 98 - 109 mmol/L 09/17/2023 6:59 AM [facility] CO2 23 20 - 29 mmol/L 09/17/2023 6:59 AM [facility] Anion Gap 7 6 - 16 mmol/L 09/17/2023 6:59 AM [facility] Calcium 9.6 8.4 - 10.4 mg/dL 09/17/2023 6:59 AM [facility] BUN 14 7 - 26 mg/dL 09/17/2023 6:59 AM [facility] Creatinine 0.54(L) 0.55 - 1.02 mg/dL 09/17/2023 6:59 AM [facility] Glucose 121(H) 70 - 100 mg/dL 09/17/2023 6:59 AM [facility] Comment:The given reference range is for the fasting state. Non-fasting reference range for glucose is 70 - 180 mg/dL. GFR, Estimated >60 >60 mL/min/1.7 3m2 09/17/2023 6:59 AM [facility] Blood Venipuncture [place] / Unknown 09/17/2023 6:27 AM CDT 09/17/2023 6:32 AM CDT Sherman Trivedi MD LAB_1 Performing Organization Address [facility] Co de Phone Number [address] * Phosphorus (09/17/2023 6:27 AM CDT) Phosphorus 3.4 2.3 - 4.7 mg/dL 09/17/2023 6:59 AM [facility] Blood Venipuncture [place] / Unknown 09/17/2023 6:27 AM CDT 09/17/2023 6:32 AM CDT Sherman Trivedi MD LAB_1 Performing Organization Address [facility] de Phone Number [address] * Magnesium (09/17/2023 6:27 AM CDT) Magnesium 2.1 1.6 - 2.6 mg/dL 09/17/2023 6:59 AM CDT [facility] Blood Venipuncture [place] / Unknown 09/17/2023 6:27 AM CDT 09/17/2023 6:32 AM CDT Sherman Trivedi MD LAB_1 Performing Organization Address City/[facility]/ZIP Co de Phone Number [address] * Glucose, Whole Blood POCT (09/16/2023 9:46 PM CDT) Glucose, Whole Blood 140 70 - 180 mg/dL 09/16/2023 9:48 PM CDT [facility] Location Lab S104 09/16/2023 9:48 PM CDT [facility] Blood 09/16/2023 9:46 PM CDT 09/16/2023 9:48 PM CDT Jg Munguia MD LAB_1 Performing Organization Address [facility] Co de Phone Number [address] * MAGNESIUM (09/16/2023 6:49 PM CDT) Magnesium 2.0 1.6 - 2.6 mg/dL 09/16/2023 7:16 PM CDT [facility] Blood Venipuncture / Unknown 09/16/2023 6:49 PM CDT 09/16/2023 6:53 PM CDT Jg Munguia MD LAB_1 Performing Organization Address City/[facility]/ZIP Co de Phone Number [address] * Glucose, Whole Blood POCT (09/16/2023 4:31 PM CDT) Glucose, Whole Blood 118 70 - 180 mg/dL 09/16/2023 4:32 PM CDT [facility] Performing Location Lab S104 09/16/2023 4:32 PM CDT [facility] Blood 09/16/2023 4:31 PM CDT 09/16/2023 4:32 PM CDT Jg Munguia MD LAB_1 Performing Organization Address [facility]/ZIP Co de Phone Number [address] * Glucose, Whole Blood POCT (09/16/2023 12:03 PM CDT) Glucose, Whole Blood 176 70 - 180 mg/dL 09/16/2023 12:05 PM CDT [facility] Performing Location Lab S104 09/16/2023 12:05 PM CDT [facility] Blood 09/16/2023 12:0 3 PM CDT 09/16/2023 12:05 PM CDT Jg Munguia MD LAB_1 Performing Organization Address [facility] Phone Number [address] * Glucose, Whole Blood POCT (09/16/2023 8:00 AM CDT) Glucose, Whole Blood 133 70 - 180 mg/dL 09/16/2023 8:01 AM CDT [facility] Performing Location Lab S104 09/16/2023 8:01 AM CDT [facility] Blood 09/16/2023 8:00 AM CDT 09/16/2023 8:01 AM CDT Jg Munguia MD LAB_1 Performing Organization Address [facility]/ZIP Co de Phone Number [address] * (ABNORMAL) Complete Blood Count-No Diff (09/16/2023 6:29 AM CDT) WBC 14.8(H) 3.5 - 10.5 x10(9)/L 09/16/2023 7:31 AM CDT [facility] RBC 4.02 3.90 - 5.03 x10(12)/L 09/16/2023 7:31 AM [facility] Hemoglobin 11.3(L) 12.0 - 15.5 g/dL 09/16/2023 7:31 AM [facility] HCT 35.3 34.9 - 44.5 % 09/16/2023 7:31 AM [facility] MCV 87.8 80.0 - 100.0 fL 09/16/2023 7:31 AM [facility] MCH 28.1 27.6 - 33.3 pg 09/16/2023 7:31 AM [facility] MCHC 32.0 31.5 - 35.2 g/dL 09/16/2023 7:31 AM [facility] RDW 13.7 11.9 - 15.5 % 09/16/2023 7:31 AM [facility] Platelets 204 150 - 450 x10(9)/L 09/16/2023 7:31 AM [facility] Automated NRBC 0 <=0 /100 WBC 09/16/2023 7:31 AM [facility] Blood Venipuncture / Unknown 09/16/2023 6:29 AM CDT 09/16/2023 7:20 AM CDT Sherman Trivedi MD LAB_1 Performing Organization Address City/State/[facility] [place] [address], [facility] * (ABNORMAL) Basic Metabolic Panel (09/16/2023 6:29 AM CDT) Sodium 140 136 - 145 mmol/L 09/16/2023 7:54 AM [facility] Potassium 4.0 3.5 - 5.1 mmol/L 09/16/2023 7:54 AM [facility] Chloride 108 98 - 109 mmol/L 09/16/2023 7:54 AM [facility] CO2 24 20 - 29 mmol/L 09/16/2023 7:54 AM [facility] Anion Gap 8 6 - 16 mmol/L 09/16/2023 7:54 AM [facility] Calcium 9.4 8.4 - 10.4 mg/dL 09/16/2023 7:54 AM [facility] BUN 14 7 - 26 mg/dL 09/16/2023 7:54 AM [facility] Creatinine 0.55 0.55 - 1.02 mg/dL 09/16/2023 7:54 AM [facility] Glucose 133(H) 70 - 100 mg/dL 09/16/2023 7:54 AM [facility] Comment:The given reference range is for the fasting state. Non-fasting reference range for glucose is 70 - 180 mg/dL. GFR, Estimated >60 >60 mL/min/1.7 3m2 09/16/2023 7:54 AM [facility] Blood Venipuncture / Unknown 09/16/2023 6:29 AM CDT 09/16/2023 7:20 AM CDT Sherman Trivedi MD LAB_1 Performing Organization Address [facility] Co de Phone Number [address] * Phosphorus (09/16/2023 6:29 AM CDT) Phosphorus 2.4 2.3 - 4.7 mg/dL 09/16/2023 7:54 AM [facility] Blood Venipuncture / Unknown 09/16/2023 6:29 AM CDT 09/16/2023 7:20 AM CDT Sherman Trivedi MD LAB_1 Performing Organization Address [facility] [place] [address], [facility] * Magnesium (09/16/2023 6:29 AM CDT) Magnesium 1.9 1.6 - 2.6 mg/dL 09/16/2023 7:54 AM [facility] Blood Venipuncture / Unknown 09/16/2023 6:29 AM CDT 09/16/2023 7:20 AM CDT Sherman Trivedi MD LAB_1 Performing Organization Address [facility] [place] [address], [facility] * Glucose, Whole Blood POCT (09/15/2023 9:08 PM CDT) Glucose, Whole Blood 163 70 - 180 mg/dL 09/15/2023 9:09 PM CDT [facility] Performing Location RCLab S104 09/15/2023 9:09 PM CDT [facility] Blood 09/15/2023 9:08 PM CDT 09/15/2023 9:09 PM CDT Jg Munguia MD LAB_1 [address] * Glucose, Whole Blood POCT (09/15/2023 4:59 PM CDT) Glucose, Whole Blood 129 70 - 180 mg/dL 09/15/2023 5:00 PM CDT [facility] Location Lab S104 09/15/2023 5:00 PM CDT [facility] Blood 09/15/2023 4:59 PM CDT 09/15/2023 5:00 PM CDT Jg Munguia MD LAB_1 Performing Organization Address City/[facility]/ZIP Co de Phone Number [address] * Glucose, Whole Blood POCT (09/15/2023 12:47 PM CDT) Glucose, Whole Blood 127 70 - 180 mg/dL 09/15/2023 12:55 PM CDT [facility] Performing Location RCLAB W3 09/15/2023 12:55 PM CDT [facility] Blood 09/15/2023 12:4 7 PM CDT 09/15/2023 12:55 PM CDT Jg Munguia MD LAB_[address] * Glucose, Whole Blood POCT (09/15/2023 8:29 AM CDT) Glucose, Whole Blood 140 70 - 180 mg/dL 09/15/2023 8:34 AM [facility] Performing Location RCLAB W3 09/15/2023 8:34 AM [facility] Blood 09/15/2023 8:29 AM CDT 09/15/2023 8:34 AM CDT Jg Munguia MD LAB_1 Performing Organization Address [facility] Co de Phone Number [address] * (ABNORMAL) Complete Blood Count-No Diff (09/15/2023 3:43 AM CDT) WBC 16.4(H) 3.5 - 10.5 x10(9)/L 09/15/2023 3:54 AM [facility] RBC 4.16 3.90 - 5.03 x10(12)/L 09/15/2023 3:54 AM [facility] Hemoglobin 11.8(L) 12.0 - 15.5 g/dL 09/15/2023 3:54 AM [facility] HCT 36.2 34.9 - 44.5 % 09/15/2023 3:54 AM [facility] MCV 87.0 80.0 - 100.0 fL 09/15/2023 3:54 AM [facility] MCH 28.4 27.6 - 33.3 pg 09/15/2023 3:54 AM [facility] MCHC 32.6 31.5 - 35.2 g/dL 09/15/2023 3:54 AM [facility] RDW 13.7 11.9 - 15.5 % 09/15/2023 3:54 AM [facility] Platelets 229 150 - 450 x10(9)/L 09/15/2023 3:54 AM [facility] Automated NRBC 0 <=0 /100 WBC 09/15/2023 3:54 AM [facility] Blood Venipuncture / Unknown 09/15/2023 3:43 AM CDT 09/15/2023 3:48 AM CDT Sherman Trivedi MD LAB_1 [address] * (ABNORMAL) Basic Metabolic Panel (09/15/2023 3:43 AM CDT) Sodium 138 136 - 145 mmol/L 09/15/2023 4:20 AM T [facility] Potassium 3.9 3.5 - 5.1 mmol/L 09/15/2023 4:20 AM [facility] Chloride 109 98 - 109 mmol/L 09/15/2023 4:20 AM [facility] CO2 21 20 - 29 mmol/L 09/15/2023 4:20 AM [facility] Anion Gap 8 6 - 16 mmol/L 09/15/2023 4:20 AM [facility] Calcium 9.2 8.4 - 10.4 mg/dL 09/15/2023 4:20 AM [facility] BUN 10 7 - 26 mg/dL 09/15/2023 4:20 AM [facility] Creatinine 0.51(L) 0.55 - 1.02 mg/dL 09/15/2023 4:20 AM [facility] Glucose 136(H) 70 - 100 mg/dL 09/15/2023 4:20 AM [facility] Comment:The given reference range is for the fasting state. Non-fasting reference range for glucose is 70 - 180 mg/dL. GFR, Estimated >60 >60 mL/min/1.7 3m2 09/15/2023 4:20 AM [facility] Blood Venipuncture / Unknown 09/15/2023 3:43 AM CDT 09/15/2023 3:48 AM CDT Sherman Trivedi MD LAB_1 [place] [address], [facility] * Phosphorus (09/15/2023 3:43 AM CDT) Phosphorus 3.9 2.3 - 4.7 mg/dL 09/15/2023 4:20 AM [facility] Blood Venipuncture / Unknown 09/15/2023 3:43 AM CDT 09/15/2023 3:48 AM CDT Sherman Trivedi MD LAB_1 Performing Organization Address City/[facility]/ZIP Co de Phone Number [address] * Magnesium (09/15/2023 3:43 AM CDT) Magnesium 2.0 1.6 - 2.6 mg/dL 09/15/2023 4:20 AM CDT [facility] Blood Venipuncture / Unknown 09/15/2023 3:43 AM CDT 09/15/2023 3:48 AM CDT Sherman Trivedi MD LAB_1 Performing Organization Address [facility] [place] Co de Phone Number [address] * MR Brain W/WO IV Cont (09/15/2023 2:36 AM CDT) Anatomical Region Laterality Modality Head Magnetic Resonan ce 09/15/2023 2:36 AM CDT Narrative 09/15/2023 3:14 AM CDT EXAM: MR BRAIN W/WO IV CONT LOCATION: [facility] DATE: 09/15/2023 INDICATION: S/p eyebrow [...] EXAM: MR BRAIN W/WO IV CONT LOCATION: [facility] DATE: 09/15/2023 INDICATION: S/p eyebrow crani [...] cavity. Hina Nielson PA-C RAD MRI * Glucose, Whole Blood POCT (09/15/2023 12:35 AM CDT) Glucose, Whole Blood 123 70 - 180 mg/dL 09/15/2023 12:39 AM CDT [facility] POCT Comment 1 MD/RN Notified 09/15/2023 12:39 AM CDT [facility] Performing Location RCLAB W3 09/15/2023 12:39 AM CDT [facility] Blood 09/15/2023 12:3 5 AM CDT 09/15/2023 12:39 AM CDT Jg Munguia MD LAB_[address] * Glucose, Whole Blood POCT (09/14/2023 7:55 PM CDT) Glucose, Whole Blood 127 70 - 180 mg/dL 09/14/2023 7:57 PM CDT [facility] Performing Location RCLAB W3 09/14/2023 7:57 PM CDT [facility] Blood 09/14/2023 7:55 PM CDT 09/14/2023 7:57 PM CDT Jg Munguia MD LAB_1 Performing Organization Address [facility] Phone [address] * Phosphorus (09/14/2023 5:57 PM CDT) Phosphorus 3.8 2.3 - 4.7 mg/dL 09/14/2023 7:19 PM CDT [facility] Blood Arterial Line / Unknown 09/14/2023 5:57 PM CDT 09/14/2023 6:03 PM CDT Jg Munguia MD LAB_1 Performing Organization Address [facility] Phone Number [address] * Magnesium (09/14/2023 5:57 PM CDT) Magnesium 1.6 1.6 - 2.6 mg/dL 09/14/2023 7:19 PM CDT [facility] Blood Arterial Line / Unknown 09/14/2023 5:57 PM CDT 09/14/2023 6:03 PM CDT Jg Munguia MD LAB_1 Performing Organization Address [facility] Co de Phone Number [address] * Potassium (09/14/2023 5:57 PM CDT) Potassium 4.1 3.5 - 5.1 mmol/L 09/14/2023 7:20 PM CDT [facility] Blood Arterial Line / Unknown 09/14/2023 5:57 PM CDT 09/14/2023 6:03 PM CDT Jg Munguia MD LAB_1 Performing Organization Address [facility]/ZIP Co de Phone Number [address] * Glucose, Whole Blood POCT (09/14/2023 5:36 PM CDT) Glucose, Whole Blood 153 70 - 180 mg/dL 09/14/2023 5:38 PM CDT [facility] Performing Location RCLAB W3 09/14/2023 5:38 PM CDT [facility] Blood 09/14/2023 5:36 PM CDT 09/14/2023 5:38 PM CDT Jg Munguia MD LAB_1 Performing Organization Address City/[facility]/ZIP Co de Phone Number [address] * (ABNORMAL) Basic Metabolic Panel (09/14/2023 1:50 PM CDT) Sodium 139 136 - 145 mmol/L 09/14/2023 2:26 PM [facility] Potassium 3.9 3.5 - 5.1 mmol/L 09/14/2023 2:26 PM [facility] Chloride 108 98 - 109 mmol/L 09/14/2023 2:26 PM T [facility] CO2 22 20 - 29 mmol/L 09/14/2023 2:26 PM T [facility] Anion Gap 9 6 - 16 mmol/L 09/14/2023 2:26 PM T [facility] Calcium 9.4 8.4 - 10.4 mg/dL 09/14/2023 2:26 PM [facility] BUN 10 7 - 26 mg/dL 09/14/2023 2:26 PM T [facility] Creatinine 0.68 0.55 - 1.02 mg/dL 09/14/2023 2:26 PM T [facility] Glucose 158(H) 70 - 100 mg/dL 09/14/2023 2:26 PM [facility] Comment:The given reference range is for the fasting state. Non-fasting reference range for glucose is 70 - 180 mg/dL. GFR, Estimated >60 >60 mL/min/1.7 3m2 09/14/2023 2:26 PM [facility] Blood Venipuncture / Unknown 09/14/2023 1:50 PM CDT 09/14/2023 1:53 PM CDT Maggie Ding PA-C LAB_1 [place] [address], [facility] * Complete Blood Count-No Diff (09/14/2023 1:50 PM CDT) WBC 9.0 3.5 - 10.5 x10(9)/L 09/14/2023 2:12 PM [facility] RBC 4.94 3.90 - 5.03 x10(12)/L 09/14/2023 2:12 PM [facility] Hemoglobin 14.0 12.0 - 15.5 g/dL 09/14/2023 2:12 PM [facility] HCT 43.5 34.9 - 44.5 % 09/14/2023 2:12 PM [facility] MCV 88.1 80.0 - 100.0 fL 09/14/2023 2:12 PM [facility] MCH 28.3 27.6 - 33.3 pg 09/14/2023 2:12 PM [facility] MCHC 32.2 31.5 - 35.2 g/dL 09/14/2023 2:12 PM [facility] RDW 13.5 11.9 - 15.5 % 09/14/2023 2:12 PM [facility] Platelets 241 150 - 450 x10(9)/L 09/14/2023 2:12 PM [facility] Automated NRBC 0 <=0 /100 WBC 09/14/2023 2:12 PM [facility] Blood Venipuncture / Unknown 09/14/2023 1:50 PM CDT 09/14/2023 1:53 PM CDT Maggie Ding PA-C LAB_1 Performing Organization Address [facility] Phone [address] * Glucose, Whole Blood POCT (09/14/2023 1:00 PM CDT) Glucose, Whole Blood 168 70 - 180 mg/dL 09/14/2023 1:01 PM CDT [facility] Performing Location RCLAB PACU 09/14/2023 1:01 PM CDT [facility] Blood 09/14/2023 1:00 PM CDT 09/14/2023 1:01 PM CDT Jg Munguia MD LAB_1 Performing Organization Address [facility]/[address] * Surgical Path (09/14/2023 11:30 AM CDT) Case Report Surgical Pathology ?Case: [id number] ? Authorizing Provider: ??Jg Munguia MD ?Collected: ? 09/14/2023 1130 ? Ordering Location: ? [facility] Operating Room ?Received: ?09/14/2023 1136 ? Pathologist: ? Bella Medina MD ? Specimen: ?Brain, Anterior Skull Based Meningioma ? 09/15/2023 2:51 PM [facility] FINAL DIAGNOSIS A. Brain, anterior skull based tumor, excision: Meningioma, WHO grade 1 Comment: The tumor cells are strongly positive for VA immunohistochemical stain and are negative for ER. 09/15/2023 2:51 PM [facility] Clinical Information Meningioma (HRC) 09/15/2023 2:51 PM [facility] Microscopic Description Microscopic examination is performed. 09/15/2023 2:51 PM [facility] Special Stains The stain controls have been reviewed and stain appropriately. 09/15/2023 2:51 PM [facility] Gross Description A: The specimen is received in formalin and labeled with the patient's name and Brain, Anterior Skull Based Meningioma. The specimen consists of 3.8 x 2.1 x 0.7 cm aggregate of pink-red, irregular soft tissue fragments with cautery. The specimen was excised at 11:30 AM, 09/14/2023 and placed into formalin at 12:01 PM, 09/14/2023. Software Quality Assurance Engineer sections are submitted in 7 cassettes. 09/15/2023 2:51 PM [facility] Embedded Images 09/15/2023 2:51 PM [facility] Tissue SPECIMEN FROM BRAIN / Unknown 09/14/2023 11:30 AM CDT 09/14/2023 11:36 AM CDT Jg Munguia MD LAB PATHOLOGY [address] [address], [facility] * Glucose, Whole Blood POCT (09/14/2023 9:45 AM CDT) Glucose, Whole Blood 144 70 - 180 mg/dL 09/14/2023 9:47 AM T [facility] Performing Location RCLAB OR 09/14/2023 9:47 AM CDT [facility] Blood 09/14/2023 9:45 AM CDT 09/14/2023 9:47 AM CDT Jg Munguia MD LAB_1 Performing Organization Address [facility] Co de Phone Number [address] * Glucose, Whole Blood POCT (09/14/2023 5:59 AM CDT) Glucose, Whole Blood 110 70 - 180 mg/dL 09/14/2023 6:01 AM CDT [facility] Performing Location RCLab PSCU 09/14/2023 6:01 AM CDT [facility] Blood 09/14/2023 5:59 AM CDT 09/14/2023 6:01 AM CDT Jg Munguia MD LAB_1 Performing Organization Address [facility] Co de Phone Number [address] * Extra [place]/Bank Tube (09/14/2023 5:56 AM CDT) Extra [place]/Bank Tube Drawn Received in BB 09/14/2023 8:08 AM CDT [facility] Blood Venipuncture / Unknown 09/14/2023 5:56 AM CDT 09/14/2023 8:07 AM CDT Bella Medina MD LAB_1 Performing Organization Address [facility] Co de Phone Number [facility] [address] [place] [address] * Antibody Screen (09/14/2023 5:52 AM CDT) Antibody Screen Interpretation Negative 09/14/2023 7:00 AM CDT [facility] Blood Venipuncture / Unknown 09/14/2023 5:52 AM CDT 09/14/2023 6:09 AM CDT Mike Davis PA-C LAB_1 Performing Organization Address [facility]/ZIP Co de Phone Number [facility] [address] * Blood Type (09/14/2023 5:52 AM CDT) ABO O 09/14/2023 7:00 AM CDT [facility] RH Positive 09/14/2023 7:00 AM CDT [facility] Blood Venipuncture / Unknown 09/14/2023 5:52 AM CDT 09/14/2023 6:09 AM CDT Mike Davis PA-C LAB_1 Performing Organization Address [facility] de Phone Number [facility] [address] [place] [address] * INR/Protime (09/14/2023 5:52 AM CDT) Protime 13.0 11.8 - 14.6 Seconds 09/14/2023 6:28 AM CDT [facility] INR 1.0 0.9 - 1.1 09/14/2023 6:28 AM CDT [facility] Blood Venipuncture / Unknown 09/14/2023 5:52 AM CDT 09/14/2023 6:10 AM CDT Narrative [facility] - 09/14/2023 6:28 AM CDT If you take an anticoagulant medicine called warfarin, your doctor or clinician may establish a normal range for you that is different from the baseline range shown. Mike Davis PA-C LAB_1 Performing Organization Address [facility] Co de Phone Number [address] * (ABNORMAL) Hemogram with Platelets (09/14/2023 5:52 AM CDT) WBC 6.4 3.5 - 10.5 x10(9)/L 09/14/2023 6:21 AM CDT [facility] RBC 4.78 3.90 - 5.03 x10(12)/L 09/14/2023 6:21 AM [facility] Hemoglobin 13.2 12.0 - 15.5 g/dL 09/14/2023 6:21 AM [facility] HCT 42.2 34.9 - 44.5 % 09/14/2023 6:21 AM [facility] MCV 88.3 80.0 - 100.0 fL 09/14/2023 6:21 AM [facility] MCH 27.6 27.6 - 33.3 pg 09/14/2023 6:21 AM [facility] MCHC 31.3(L) 31.5 - 35.2 g/dL 09/14/2023 6:21 AM [facility] RDW 13.4 11.9 - 15.5 % 09/14/2023 6:21 AM [facility] Platelets 243 150 - 450 x10(9)/L 09/14/2023 6:21 AM [facility] Automated NRBC 0 <=0 /100 WBC 09/14/2023 6:21 AM [facility] Blood Venipuncture / Unknown 09/14/2023 5:52 AM CDT 09/14/2023 6:10 AM CDT Mike Davis PA-C LAB_1 Performing Organization Address City/State/[facility] Co de Phone Number [address] * (ABNORMAL) Basic Metabolic Panel (09/14/2023 5:52 AM CDT) Sodium 140 136 - 145 mmol/L 09/14/2023 6:39 AM [facility] Potassium 4.2 3.5 - 5.1 mmol/L 09/14/2023 6:39 AM [facility] Comment:Specimen slightly he molyzed. Hemolysis may affect result. Chloride 109 98 - 109 mmol/L 09/14/2023 6:39 AM [facility] CO2 22 20 - 29 mmol/L 09/14/2023 6:39 AM [facility] Anion Gap 9 6 - 16 mmol/L 09/14/2023 6:39 AM [facility] Calcium 10.2 8.4 - 10.4 mg/dL 09/14/2023 6:39 AM [facility] BUN 12 7 - 26 mg/dL 09/14/2023 6:39 AM CDT [facility] Creatinine 0.64 0.55 - 1.02 mg/dL 09/14/2023 6:39 AM T [facility] Glucose 104(H) 70 - 100 mg/dL 09/14/2023 6:39 AM T [facility] Comment:The given reference range is for the fasting state. Non-fasting reference range for glucose is 70 - 180 mg/dL. GFR, Estimated >60 >60 mL/min/1.7 3m2 09/14/2023 6:39 AM T [facility] Blood Venipuncture / Unknown 09/14/2023 5:52 AM CDT 09/14/2023 6:10 AM CDT Mike Davis PA-C LAB_1 Performing Organization Address City/State/[facility] Co de Phone Number [facility] [address] [place] [address], [facility] documented in this encounter Visit Diagnoses Diagnosis Meningioma (HRC)- Primary Benign neoplasm of cerebral meninges Meningioma (HRC) Benign neoplasm of cerebral meninges Bradycardia, sinus Other specified cardiac dysrhythmias S/P craniotomy Other postprocedural status Post-op pain Other acute postoperative pain Eye swelling, bilateral Swelling or mass of eye Cerebral edema (HRC) Cerebral edema Coordination of complex care Hypotension Hypotension, unspecified Bradycardia, sinus Other specified cardiac dysrhythmias * Plan of Care - Hina Flood RN - 09/22/2023 3:22 PM CDT [facility] Discharge Note - Nursing Admission Date/Time: 09/14/2023 4:48 AM Attending MD: Jg Munguia MD Patient discharged: to Home. Discharge Date: 09/22/2023 Discharge Time: 2:49 PM Patient accompanied by: relative. Transported by: Walked Valuables were taken home by patient: Yes Discharge instructions given and explained to patient: Yes Discharge Patient Education Plan completed, taught, and provided to patient/caregiver at discharge:Yes Discussed medication risks with patient Patient understands medications usage and side effects Patient understands diagnosis Action Plan for management of symptoms/side effects/complications requiring medical attention established and shared with patient/caregiver Was patient discharged on Warfarin? {(Do not delete line; Warfarin documentation is required) No Patients general condition on discharge: A&Ox4. Bradycardic, otherwise VSS on RA. C/O 4-6/10 pain, tolerable relief with around the clock prns. All medical devices (telemetry/IV/etc) unless otherwise ordered, have been removed and stored: Yes --- End of Report --- * Plan of Care - Hina Flood RN - 09/22/2023 2:36 PM CDT A&Ox4. Bradycardic, otherwise VSS on RA. C/O 4-6/10 pain, tolerable relief with around the clock prns. C/O worsening blurred visions, provider notified. Up ad ryne in room and hallway. Tolerating diet. Continent of bladder, no BM. Pt is able to make needs known and calls appropriately. * Plan of Care - Hina Flood RN - 09/22/2023 9:28 AM CDT [facility]. Practitioner Notified Note Name of Practitioner notified: Neurosurgery consult pager Time of Practitioner notification: 9:29 AM Reason: FYI pt c/o worsening blurred vision. Says she can't see the TV Response: No response * Plan of Care - Toya Leija RN - 09/22/2023 5:54 AM CDT A&Ox4. Bradycardic, other VSS. On room air. PERRL. HERNANDEZ. Independent. Continent. Able to make needs known. Patient reported incision pain. Meds given per MAR with stated relief. Care hours [phone] * Plan of Care - Esther Pina RN - 09/21/2023 9:40 PM CDT [facility] Plan of Care Note Patient alert and oriented x4. Complains of 5-6/10 headache/incisional pain. Pain managed with prn oxycodone and vistaril in addition to scheduled medications. Denies numbness/tingling. Sinus bradycardia on telemetry, asymptomatic. Mild swelling noted at incision site/forehead. Sutures removed. Good appetite, ate food that was brought in by son. Continent. No BM reported this evening. Up independently. Ambulated in the pak x1 this evening. Able to make needs known, call light within reach. --- End of Report --- * Plan of Care - Hina Flood RN - 09/21/2023 3:07 PM CDT A&Ox4. Bradycardic, otherwise VSS on RA. C/O 4-6/10 pain, tolerable relief with around the clock prns. Neuros unchanged. Up ad ryne in room and hallway. Tolerating diet. Continent of B&B, pt refused suppository, said she had a small BM yesterday, prn senna also given. Pt is able to make needs known and calls appropriately. 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. Lives with adult children who are able to assist AM-PAC Activities of Daily Living (ADLs) AM-PAC Functional Task Assist Needed Prior to Admission Assist Needed Current Putting on and taking off regular lower body clothing 4-->None (independent) (P) 4-->None (independent) Bathing (including washing, rinsing, drying) 4-->None (independent) (P) 4-->None (independent) Toileting, which includes using toilet, bedpan or urinal 4-->None (independent) (P) 4-->None (independent) Putting on and taking off regular upper body clothing 4-->None (independent) (P) 4-->None (independent) Taking care of personal grooming such as brushing teeth 4-->None (independent) (P) 4-->None (independent) Eating meals 4-->None (independent) (P) 4-->None (independent) Raw Score (6-24, higher is more independent) 24 (P) 24 Percent Impaired 0.00% impaired (P) 0.00% impaired Assessment: Patient up in chair and has been mobilizing independently in room and hallway, session focused on stress management, compensatory strategies for BADL's and education in monitoring vitals (reports trying to increase HR during mobility as she has been running low). No further IP OT needs indicated--OK to dc home when medically ready. (OT) Discharge Recommendations: (P) Patient is safe to return to their prior living situation (OT) Discharge Readiness: (P) Goals met, no further inpatient therapy indicated (OT) Rehab Potential: Good potential, to return to independence with self cares (OT) Post-Acute Care Therapy Recommendations: (P) No anticipated therapy needed after discharge (OT) Anticipated Equipment Needs at Discharge: (P) None (OT) Discharge Recommendations Discussion: (P) Discussed with, patient, patient agrees with recommendations Inpatient Plan: Duration of Inpatient Therapy: (P) discontinue inpatient OT Nursing Activity Recommendations (OT): (P) Independent See Link to OT Doc in Patient Story for more details about daily sessions. * Plan of Care - Laurence Phelan RN - 09/20/2023 9:24 PM CDT A&O x4. No neuro change. HR sinus ck 40-50s. Pt remains asymptomatic. Pain in head 5-7 out of 10. Oxycodone given q3h. Pt states tolerable relief from pain meds. Up ad ryne independent inside room. * Plan of Care - Kathy Pelaez RN - 09/20/2023 6:49 PM CDT Pt alert and oriented x4. Complains of 5-8/10 eyebrow pain relieved with PRN vistaril and oxycodone. Up independently in room. Vss. Pt sinus ck. Pt denies numbness and tingling in all extremities.Pt has call light within reach and can make needs known. Care Hours [id number] * Plan of Care - Sonya Espino RN - 09/20/2023 2:55 PM CDT [facility] Care Management Follow Up Note Plan: Care Team Actions Needed: medical clearance, discharge orders, PT/OT consult Expected discharge date: 09/20/2023 Anticipated Discharge Plan: Likely home pending PT/OT recs Care Coordination Updates: Current Patient Assessment: appropriate, pleasant Barriers/Vulnerabilities: patient continues to require acute medical care Anticipated Transportation Mode: Private Vehicle Contacts: Emergency Contacts Internet Project Manager (Rel.) Home Phone Work Phone Mobile Phone WERO BRAY (Son) [phone] -- -- SARY ROSAS (Daughter) [phone] -- -- Stefany Leyva [phone] -- -- Functional Level Prior: Functional Screen (Baseline Prior to Admission) Ambulation: Independent Transferring: Independent Toileting: Independent Bathing: Independent Dressing: Independent Eating: Independent Communication: Understands/communicates without difficulty Swallowing: Swallows foods/liquids without difficulty Meal Preparation: Independent Laundry: Independent Finances: Independent Shopping: Independent Transportation: Drives Independently 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. Lives with adult children who are able to assist Primary Care: Primary Care Primary Care Clinic: [facility] Primary Care Physician: Svitlana Olmos MD Current Services: Prior Services: Selected Continued Care - Admitted Since 09/14/2023 No services have been selected for the patient. Living Environment: Living Arrangements: Adult children, Grandchildren, Home - 1 story Number of Stairs, Within Home: twelve (to basement so does not have to do initially) Number of Stairs, Entrance: two Additional Comments: Pt to dc home with family on Tuesday once she has proper pain control. No additional CM needs. Sonya Espino RN CM * Plan of Care - Laurence Phelan RN - 09/20/2023 5:24 AM CDT [facility] Plan of Care Note Assessment: Neuro Plan: Neuro check, pain control Subjective: Pt states pain in head, 4-6 out of 10. Objective: A&O x4. No neuro change. No numbness/tingling. HR sinus ck 40-50s, pt asymptomatic. Pain meds with tolerable relief, given around the clock per pt request. Sleeping in between cares. Bowel sounds active and passing gas. --- End of Report --- * Plan of Care - Kathy Pelaez RN - 09/19/2023 6:45 PM CDT Pt alert and oriented x4. Complains of 5/10 eyebrow pain relieved with PRN vistaril and oxycodone. Up independently in room. Vss. Pt sinus ck. Pt voiding without difficulty. Pt denies numbness andtingling in all extremities. Pt has call light within reach and can make needs known. Care Hours [phone] * Plan of Care - Alysa Hardy RN - 09/19/2023 7:02 AM CDT A/o x 4. States incisional pain 5/10, [id number] dosing of prn's utilized per pt request. Swelling at incision. States improved numbness in R hand. Sinus ck, HR 40's-50's. Ambulating to bathroom IND, steady gait. Continent of bladder. Makes needs known. * Plan of Care - Rachel Chilel RN - 09/18/2023 8:04 PM CDT Pt A&Ox4. PERRL. HERNANDEZ. C/o incisional pain tolerable with scheduled and prn medications. Incisional site sutured and ALDO. Up in room and hallway independently. Tolerating diet. No c/o N/V. Mag 1.9replacement given. Recheck WNL. Able to make need known. * Plan of Care - Daksha Ariza RN - 09/18/2023 6:50 AM CDT A&Ox4, can be forgetful. VSS w/ HR ck on RA. C/o head pain managed w/ PRN pain meds. Denies SOB, N/V. Numbness to RUE, d/t surgery. Incision C/D/I and ALDO. Swelling/bruising still present to forehead/eyes. C/o no appetite, ate about 25% of dinner. Up Independent to the bathroom, continent ofbladder. No BM overnight, but passing gas. Call light within reach. Appeared to sleep comfortably between cares/assessments. * Plan of Care - Yanique Perdomo RN - 09/17/2023 6:38 PM CDT Patient A&Ox4 and able to make needs be known. C/o head/incisional pain, treated with PRN's perMAR. Up with SBA. Incision CDI. 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. Lives with adult children who are able to assist AM-PAC Mobility AM-PAC Functional Task Assist Needed Prior to Admission Assist Needed Current Turning in bed 4-->None (independent) 4-->None (independent) Lying to Sitting at edge of bed 4-->None (independent) 4-->None (independent) Bed to chair transfer 4-->None (independent) 4-->None (independent) Standing up from chair 4-->None (independent) 4-->None (independent) Walk in hospital room 4-->None (independent) 4-->None (independent) Distance walked (ft) Community ambulator (>1200 ft) 300 Climbing 3-5 stair with railing 4-->None (independent) 4-->None (independent) Assistive Device used None gait belt Raw Score (6-24, higher is more independent) 24 24 Percent Impaired 0.00% impaired 0.00% impaired Assessment: Pt seen at bedside for PT treatment. Pt reports she has been mobilizing independently in halls. This date, she demonstrates independence with all functional mobility. Pt is safe for dc home following stay, no further inpatient PT needs at this time. (PT) Discharge Recommendations: Patient is safe to return to their prior living situation (PT) Discharge Readiness: No need to wait for therapy if medically ready for discharge (PT) Rehab Potential: Good potential, to return to independence with mobility (PT) Post-Acute Care Therapy Recommendations: No anticipated therapy needed after discharge (PT) Anticipated Equipment Needs at Discharge: None (PT) Discharge Recommendations Discussion: Discussed with, patient, patient agrees with recommendations Inpatient Plan: Duration of Inpatient Therapy: discontinue inpatient PT Nursing Activity Recommendations (PT): up walking, up to chair at least 3-4x/day See Link to PT Doc in Patient Story for more details about daily sessions. * Plan of Care - Sherman Jean, RN - 09/17/2023 9:00 AM CDT [facility] Care Management Follow Up Note Plan: Care Team Actions Needed: medical clearance, discharge orders, PT/OT consult Expected discharge date: 09/19/2023 Anticipated Discharge Plan: Likely home pending PT/OT recs Admission Info: Reason for Consult: discharge planning Chart Reviewed: discussed with patient, discussed with interdisciplinary team Contacts: Emergency Contacts Internet Project Manager (Rel.) Home Phone Work Phone Mobile Phone WERO BRAY (Son) [phone] -- -- SARY ROSAS (Daughter) [phone] -- -- Stefany Leyva [phone] -- -- Cognitive capacity prior to admission: oriented Independent with ADLs (Prior to Admission)? 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. Lives with adult children who are able to assist Living Environment: Living Arrangements (select all that apply): Adult children, Grandchildren, Home - 1 story Resource/Environmental Concerns: none Medication management by: patient Personal Assistive Devices: None Physical/Mobility Assistive Devices: None Number of Stairs, Within Home: twelve (to basement so does not have to do initially) Number of Stairs, Entrance: two Food Insecurity: No Food Insecurity (09/14/2023) Hunger Vital Sign Worried About Running Out of Food in the Last Year: Never true Ran Out of Food in the Last Year: Never true Coping/Stress: Major Change/Loss/Stressor: medical condition/diagnosis Patient Personal Strengths: strong support system Sources of Support: adult child(erica), other family members Reaction to Health Status: accepting Understanding of Condition and Treatment: adequate understanding of medical condition, adequate understanding of treatment Emotional/Psychological: Affect: affect consistent with mood Emotion/Mood: appropriate to situation Speech: clear, coherent Judgment and Insight: insight appropriate to situation, judgment appropriate to situation Thought Content: logical, relevant Thought Process: relevant, logical Current Patient Assessment: appropriate, pleasant Barriers: patient continues to require acute medical care Current Services: Prior Services: Selected Continued Care - Admitted Since 09/14/2023 No services have been selected for the patient. Transport Needs: Anticipated Transportation Mode: Private Vehicle Number of Stairs, Entrance: two Number of Stairs, Within Home: twelve (to basement so does not have to do initially) Primary Care: Primary Care Clinic: [facility] Primary Care Physician: Svitlana Olmos MD Functional Level Prior: Functional Screen (Baseline Prior to Admission) Ambulation: Independent Transferring: Independent Toileting: Independent Bathing: Independent Dressing: Independent Eating: Independent Communication: Understands/communicates without difficulty Swallowing: Swallows foods/liquids without difficulty Meal Preparation: Independent Laundry: Independent Finances: Independent Shopping: Independent Transportation: Drives Independently 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. Lives with adult children who are able to assist Insurance: [employer] Readmission Assessment: Initial assessment notes: Reviewed patient's chart and discussed plan of care with team during care connection. Met with patient, introduced myself and my role as immigration case worker/social sciences research scientist. Verified demographics. Patient currently lives w/ 3 adult children and 2 grandchildren in a house in [place]. 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 She has been on short-term disability since May and is applying for long-term disability. No reported DME at home. Has support from 7 adult children (all of which live nearby), grandchildren. Patient drives to get to their medical appointments. PCP is Svitlana Olmos MD at [facility]. Trixie Mckeon, HEALTH CONCIERGE, GUMMED TAPE PRESS OPERATOR Admission Date/Time: 09/14/2023 4:48 AM Attending MD: Jg Munguia MD Data Ruthann Rosas was referred to this manager sales training for discharge planning and care coordination. Ruthann Rosas was admitted to [facility] for Meningioma (C) [D32.9]. Insurance: Payor: [employer] / Plan: [employer] SELF MANAGED CARE / Product Type: Commercial / Living Arrangements (select all that apply): Adult children, Grandchildren, Home - 1 story Support System: adult child(erica), other family members Barriers to Discharge: MD medical clearance, discharge orders, PT/OT consult Admitted for tumor resection. Pt went to the OR yesterday for the planned resection. Waiting on PT/OT recs. Patient not medically cleared and not ready for discharge, pending clinical improvement and medicalclearance. Provider anticipates patient will need another 4 more days in the hospital for medical management. Anticipated Discharge Plan: Therapy teams recommending DC home Barriers to their discharge: Medical clearance Anticipated transport at time of discharge: Family Provider, hardboard coating machine operator, bed side RN, and nurse management updated. CM/SW Team will continue to follow for coordination of care, discharge planning and offer support as needed. Sherman Jean FIBER OPTICS TECHNICIAN, Junior Java Developer Pager [phone] * Plan of Care - Daksha Ariza RN - 09/17/2023 6:59 AM CDT A&Ox4. VSS w/ HR ck throughout the night. C/o of pain to head/incision, managed w/ PRN pain meds. Denies SOB, N/T, N/V. Incision C/D/I and RETAIL ACCOUNT MANAGER. Swelling still present to forehead/eyes. Up SBA to bathroom, continent of bladder, no BM overnight but passing gas. Call light within reach. Appeared to sleep comfortably between cares/assessments. * Plan of Care - Hattie Rosas RN - 09/16/2023 6:17 PM CDT Patient is alert and oriented x4, she is forgetful at times. PERRL, conjugate. No dizziness or lightheadedness. Headache controlled with oral pain medications. She does not have a good appetite but is drinking well. She is ambulating independently, strength in right arm weak and range of motion limited in right arm due to recent shoulder surgery. Some swelling at forehead and eyelids. * Plan of Care - Annette Black, PT - 09/16/2023 1:21 PM CDT Physical Therapy Acute Evaluation Reason for Admit/Therapy Consult: 58 y.o. 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 Existing Precautions/Restrictions: fall, vitals parameters Vitals Parameters: SBP <130 Living Arrangements (select all that apply): Adult children, Grandchildren, Home - 1 story Prior Equipment (Mobility): None Prior Equipment (ADLs): None Home Accessibility: stairs to enter home, stairs within home Number of Stairs, Entrance: two Stair Railings, Entrance: (P) no railings (has a pillar) Number of Stairs, Within Home: twelve (to basement so does not have to do initially) Stair Railings, Within Home: one railing Prior Level of Function Details: Independent with ADLs/IADLs, 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. Lives with adult children who are able to assist AM-PAC Mobility AM-PAC Functional Task Assist Needed Prior to Admission Assist Needed Current Turning in bed 4-->None (independent) (P) 4-->None (independent) Lying to Sitting at edge of bed 4-->None (independent) (P) 3-->A little (sup/min A) Bed to chair transfer 4-->None (independent) (P) 3-->A little (sup/min A) Standing up from chair 4-->None (independent) (P) 3-->A little (sup/min A) Walk in hospital room 4-->None (independent) (P) 3-->A little (sup/min A) Distance walked (ft) Community ambulator (>1200 ft) (P) 60' Climbing 3-5 stair with railing 4-->None (independent) (P) 3-->A little (sup/min A) Assistive Device used None (P) gait belt Raw Score (6-24, higher is more independent) 24 (P) 19 Percent Impaired 0.00% impaired (P) 36.99% impaired Assessment: Pt tolerated PT eval fairly well but increased pain and some nausea when up.Pt needing some extra time and SBA to CGA for gait/mobility. Anticipate pt will return home with family support. PT will continue to see and assess if needs equipment for home and try steps. (PT) Discharge Recommendations: (P) Anticipate patient will be safe to return to their prior livingsituation within the anticipated length of stay (PT) Discharge Readiness: (P) No need to wait for therapy if medically ready for discharge (PT) Rehab Potential: (P) Good potential (PT) Post-Acute Care Therapy Recommendations: (P) No anticipated therapy needed after discharge (PT) Anticipated Equipment Needs at Discharge: (P) Unknown (PT) Discharge Recommendations Discussion: (P) Discussed with, patient, patient agrees with recommendations Inpatient Plan: Duration of Inpatient Therapy: (P) ongoing inpatient PT while pt hospitalized until goals met Nursing Activity Recommendations (PT): (P) up walking, up to chair with 1 assist 3-4x a day See Link to PT Doc in Patient Story for more details about daily sessions. * Plan of Care - Sonya Espino RN - 09/16/2023 1:17 PM CDT [facility] Care Management Follow Up Note Plan: Care Team Actions Needed: MD medical clearance, discharge orders, PT/OT consult Expected discharge date: 09/19/2023 Anticipated Discharge Plan: Likely home pending PT/OT recs Care Coordination Updates: Current Patient Assessment: appropriate, pleasant Barriers/Vulnerabilities: patient continues to require acute medical care Anticipated Transportation Mode: Private Vehicle Contacts: Emergency Contacts Internet Project Manager (Rel.) Home Phone Work Phone Mobile Phone WERO BRAY (Son) [phone] -- -- SARY ROSAS (Daughter) [phone] -- -- GordonStefany [phone] -- -- Functional Level Prior: Functional Screen (Baseline Prior to Admission) Ambulation: Independent Transferring: Independent Toileting: Independent Bathing: Independent Dressing: Independent Eating: Independent Communication: Understands/communicates without difficulty Swallowing: Swallows foods/liquids without difficulty Meal Preparation: Independent Laundry: Independent Finances: Independent Shopping: Independent Transportation: Drives Independently 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. Lives with adult children who are able to assist Primary Care: Primary Care Primary Care Clinic: [facility] Primary Care Physician: Svitlana Olmos MD Current Services: Prior Services: Selected Continued Care - Admitted Since 09/14/2023 No services have been selected for the patient. Living Environment: Living Arrangements: Adult children, Grandchildren, Home - 1 story Number of Stairs, Within Home: twelve (to basement so does not have to do initially) Number of Stairs, Entrance: two Additional Comments: Pt recent transfer from ICU. IA completed. CM dc plan pending OT PT recs. Was independent working as an RN prior. Sonya Espino RN CM * Plan of Care - Pat Kline RN - 09/16/2023 7:59 AM CDT Pt alert and oriented x4, neuro status intact, up with standby, voiding ok, no bowel during the shift, incision site intact. Call light within reach, bed alarm on at night. * Plan of Care - Aneesh Jeronimo RN - 09/15/2023 6:45 PM CDT [facility] Plan of Care Note Assessment: Neuro Status Plan: Continue to monitor pts Neuro Status while notifying MD of any significant changes Subjective: pt has reported baseline NxT to R hand Objective: pt has only reported NxT to R hand that she states is baseline, CMS otherwise intact, PERRL, pt has been Able HERNANDEZ well and with good strength, headache pain is chief complaint, PRN Oxy given per APR, will continue to monitor, pt has been Sinus-Sinus Ck on monitor w/1st Deg AVB, BP 116/73 (BP Cuff Size: Regular) Pulse 73 Temp 98.8 ??F (37.1 ??C) (Oral) Resp 18 Ht 5' 5 (1.651m) Wt 74.4 kg (164 lb) SpO2 95% BMI 27.29 kg/m?? pt has been AxOx4 and able to make needs known. --- End of Report --- Aneesh Jeronimo RN 09/15/2023, 7:00 PM * Plan of Care - Kimberly Delcid RN - 09/15/2023 5:00 PM CDT [facility] Nursing Transfer Note Admission Date/Time: 09/14/2023 4:48 AM Time of transfer: 4:30 PM Transfer from room #: 3620 Accepting nursing unit: [facility] Valuables/belongings sent with patient?: Yes Dentures: No Glasses/Contacts: Glasses (cheaters) Hearing Aid: No Home meds being used in hospital sent with patient?: N/A Transported by: Bed Family notified of unit transfer and change in patients condition: Yes General condition of patient at time of transfer: A/Ox4. Still c/o MURILLO, PM robaxin given. VSS, on RA. Pressure ulcer present: no Select criteria that may indicate need for specialty mattress: None Does patient need specialty mattress upon transfer? No Please order specialty mattress, if it is indicated. Need for continued central line assessed: N/A Need for continued indwelling urethral catheter assessed: N/A Device detached from patient in Epic prior to transfer: Yes * Plan of Care - Kimberly Delcid RN - 09/15/2023 4:51 PM CDT RASS 0/-1. PERRL. A&Ox4. Strong x4. Baseline weakness in RUE. C/o 8/10 MURILLO, PRNs per APR. PRNs provide some relief but not sufficient. ordered additional meds to try this evening. Telemetry: SR/SB w/ 1st AVB, HR 50s-60s. SBP<130, MAP>65. Afebrile. LSC on RA. Pt ate 50% of breakfast and bites of lunch, poor appetite. 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 Voiding via commode, SBA/x1 - occasionally dizzy when ambulating. * Initial Assessments - Linda, Trixie Prieto, HEALTH CONCIERGE, GUMMED TAPE PRESS OPERATOR - 09/15/2023 3:18 PM CDT [facility] Care Management Initial Assessment Plan: Care Team Actions Needed: MD medical clearance, discharge orders, PT/OT consult Expected discharge date: 09/19/2023 Anticipated Discharge Plan: Likely home pending PT/OT recs Admission Info: Reason for Consult: discharge planning Chart Reviewed: discussed with patient, discussed with interdisciplinary team Contacts: Emergency Contacts Internet Project Manager (Rel.) Home Phone Work Phone Mobile Phone WERO BRAY (Son) [phone] -- -- SARY ROSAS (Daughter) [phone] -- -- Stefany Leyva [phone] -- -- Cognitive capacity prior to admission: oriented Independent with ADLs (Prior to Admission)? 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. Lives with adult children who are able to assist Living Environment: Living Arrangements (select all that apply): Adult children, Grandchildren, Home - 1 story Resource/Environmental Concerns: none Medication management by: patient Personal Assistive Devices: None Physical/Mobility Assistive Devices: None Food Insecurity: No Food Insecurity (09/14/2023) Hunger Vital Sign Worried About Running Out of Food in the Last Year: Never true Ran Out of Food in the Last Year: Never true Coping/Stress: Major Change/Loss/Stressor: medical condition/diagnosis Patient Personal Strengths: strong support system Sources of Support: adult child(erica), other family members Reaction to Health Status: accepting Understanding of Condition and Treatment: adequate understanding of medical condition, adequate understanding of treatment Emotional/Psychological: Affect: affect consistent with mood Emotion/Mood: appropriate to situation Speech: moderate rate and volume Judgment and Insight: judgment appropriate to situation, insight appropriate to situation Thought Content: relevant, logical Thought Process: relevant, logical Current Patient Assessment: appropriate, pleasant Barriers: patient continues to require acute medical care Current Services: Prior Services: Selected Continued Care - Admitted Since 09/14/2023 No services have been selected for the patient. Transport Needs: Anticipated Transportation Mode: Private Vehicle Primary Care: Primary Care Clinic: [facility] Primary Care Physician: Svitlana Olmos MD Functional Level Prior: Functional Screen (Baseline Prior to Admission) Ambulation: Independent Transferring: Independent Toileting: Independent Bathing: Independent Dressing: Independent Eating: Independent Communication: Understands/communicates without difficulty Swallowing: Swallows foods/liquids without difficulty Meal Preparation: Independent Laundry: Independent Finances: Independent Shopping: Independent Transportation: Drives Independently 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. Lives with adult children who are able to assist Insurance: [employer] Readmission Assessment: Additional Comments: Reviewed patient's chart and discussed plan of care with team during care connection. Met with patient, introduced myself and my role as immigration case worker/social sciences research scientist. Verified demographics. Patient currently lives w/ 3 adult children and 2 grandchildren in a house in [place]. 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 She has been on short-term disability since May and is applying for long-term disability. No reported DME at home. Has support from 7 adult children (all of which live nearby), grandchildren. Patient drives to get to their medical appointments. PCP is Svitlana Olmos MD at [facility]. Admitted for tumor resection. Pt went to the OR yesterday for the planned resection. Waiting on PT/OT recs. Patient not medically cleared and not ready for discharge, pending clinical improvement and medicalclearance. Provider anticipates patient will need another 4 more days in the hospital for medical management. Anticipated Discharge Plan: Likely home pending PT/OT recs Barriers to their discharge: Medical readiness, PT/OT recs CM/SW Action Items: Watch PT/OT recs Anticipated transport at time of discharge: Family CM/SW Team will continue to follow for coordination of care, discharge planning and offer support as needed. Trixie Mckeon, ANTHONY, GUMMED TAPE PRESS OPERATOR * Plan of Care - AldaMark, OTR/L - 09/15/2023 11:38 AM CDT Occupational Therapy Acute Evaluation Reason for Admit/Therapy Consult: 58 y.o. 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. Lives with adult children who are able to assist AM-PAC Activities of Daily Living (ADLs) AM-PAC Functional Task Assist Needed Prior to Admission Assist Needed Current Putting on and taking off regular lower body clothing 4-->None (independent) 3-->A little (sup/min A) Bathing (including washing, rinsing, drying) 4-->None (independent) 3-->A little (sup/min A) Toileting, which includes using toilet, bedpan or urinal 4-->None (independent) 3-->A little (sup/min A) Putting on and taking off regular upper body clothing 4-->None (independent) 4-->None (independent) Taking care of personal grooming such as brushing teeth 4-->None (independent) 3-->A little (sup/min A) Eating meals 4-->None (independent) 4-->None (independent) Raw Score (6-24, higher is more independent) 24 20 Percent Impaired 0.00% impaired 38.32% impaired Assessment: Pt seen for bedside OT eval and treatment this AM. Presents with impaired RUE strength/ROM, decreased activity tolerance, impaired balance, and headache pain, limiting ADL independence/safety. During session, pt demonstrates intact cognition and stability with pivot to BSC. Pt's RUE strength/ROM is limited due to previous R rotator cuff repair. Has good family support and lives with adult children who can assist as needed. Barriers to d/c are current level of function w/ADLs and overall medical status. OT will continue to follow for 1-2 more sessions to address ADL safety/independence. (OT) Discharge Recommendations: Anticipate patient will be safe to return to their prior living situation within the anticipated length of stay (OT) Discharge Readiness: No need to wait for therapy if medically ready for discharge (OT) Rehab Potential: Good potential, to return to independence with self cares (OT) Post-Acute Care Therapy Recommendations: No anticipated therapy needed after discharge (OT) Anticipated Equipment Needs at Discharge: None (OT) Discharge Recommendations Discussion: Discussed with, patient, patient agrees with recommendations Inpatient Plan: Duration of Inpatient Therapy: 1, 2, more session(s) Nursing Activity Recommendations (OT): Up to chair and up to BSC with Ax1 using gait belt See Link to OT Doc in Patient Story for more details about daily sessions. * Plan of Care - Trisha Branch RN - 09/15/2023 5:48 AM CDT [facility] Plan of Care Note Assumed cares [id number] GCS 15, PERRL, RASS 0/-1. A&Ox4. Strong x4. Baseline weakness to RUE. PRN Oxy and Dilaudid given for MURILLO. Telemetry: SR w/ 1st AVB. Some hypotension, see below. Afebrile. LSC on 2LNC. Tolerating clears. LBM GRAIN MERCHANDISER. Strong cath x1, later able to spontaneously void. T&R Q2hrs. MRI completed. [facility]. Practitioner Notified Note Name of Practitioner notified: CANDI He Time of Practitioner notification: 10:21 PM Reason: No labs ordered for AM. Also, BP decreasing. 80's/60-70's. MAP's holding around 65-70. No neuro changes, asymptomatic. Response: 500ml bolus and labs ordered. [facility]. Practitioner Notified Note Name of Practitioner notified: CANDI He Time of Practitioner notification: 00:58 Reason: s/p bolus and still hypotensive. MAP's 60-65. Response: Give 1L bolus and MAP goal >60. --- End of Report --- documented in this encounter Admitting Diagnoses Diagnosis Meningioma (HRC) Benign neoplasm of cerebral meninges documented in this encounter Administered Medications Inactive Administered Medications - up to 3 most recent administrations Medication Order MAR Action Action Date Dose Rate Site acetaminophen (TYLENOL) tablet 1,000 mg 1,000 mg, Oral, TID, First dose (after last modification) on Noy 09/15/23 at 1400, Until Discontinued, Initially give acetaminophen for patient with mild pain. Acetaminophen may be given WITH other pain medications as adjunct pain relief. Do not give two acetaminophen containing medications within 4 hours of each other. Given 09/22/2023 1:38 PM CDT 1,000 mg Given 09/22/2023 7:30 AM CDT 1,000 mg Given 09/21/2023 8:08 PM CDT 1,000 mg acetaminophen (TYLENOL) tablet 650 mg 650 mg, Oral, Q6H PRN, Pain/Fever, Initially give acetaminophen for patient with mild pain., Starting on Tue09/14/23 at 0556, Until Noy 09/15/23 at 1339, Initially give acetaminophen for patient with mild pain. Acetaminophen may be given WITH other pain medications as adjunct pain relief. Do not give two acetaminophen containing medications within 4 hours of each other. Given 09/15/2023 9:50 AM CDT 650 mg Given 09/15/2023 4:05 AM CDT 650 mg Given 09/14/2023 10:05 PM CDT 650 mg Adult Magnesium Replacement Protocol: goal 2 mg/dL MAR placement bonner for Magnesium Replacement Protocol: see nursing protocol and med replacement orders., Q8H, First dose on Tue09/14/23 at 1730 Adult Phosphorus Replacement Protocol: goal 2 mg/dL MAR placement bonner for Phosphorus Replacement Protocol: see nursing protocol and med replacement orders., Q8H, First dose on Tue09/14/23 at 1730 Adult Potassium Replacement Protocol: goal 3.5 mmol/L BANNER placement bonner for Potassium Replacement Protocol: see nursing protocol and med replacement orders., Q8H, First dose on Tue09/14/23 at 1730 bacitracin 500 UNIT/GM ointment Topical, TID, First dose on Tue09/15/23 at 2000, Apply topically to (specify site) post-op incision BID Hazardous waste disposal required. Given 09/22/2023 7:30 AM CDT Wound Site Given 09/21/2023 2:09 PM CDT Wo und Site Given 09/21/2023 8:07 AM CDT Fa ce bisacodyl (DULCOLAX) rectal suppository 10 mg 10 mg, Rectal, DAILY PRN, Constipation, No stool in the last 3 days, Starting on Tue09/14/23 at 1701, Until Noy 09/22/23 at 1723, Cumulative bowel medication orders. Administer based on medications available on APR. If no stool in last day start Senna BID PRN no stool, if no stool in last 2 days add Miralax DAILY PRN no stool, if no stool in last 3 days add bisacodyl suppository DAILY PRN until patient stools. When patient stools, stop giving PRN meds and continue monitoring for bowel activity. When no stools X 1 day, begin regimen again until patient stools. Do not give if Absolute Neutrophil Count (ANC) is 1 k/cmm or less OR platelet count is 50 k/cmm or less., Post-op cefTRIAXone (ROCEPHIN) 2 g in sodium chloride 0.9 % 100 mL IVPB 2 g, Intravenous, Administer over 30 Minutes, ONCE, On Tue09/15/23 at 0800, For 1 dose, Do NOT infuse in same line with Lactated Ringers (LR), TPN, or other calcium-containing IV solutions due to incompatibility. Started 09/15/2023 7:56 AM CDT 2 g dexAMETHasone (DECADRON) tablet 2 mg 2 mg, Oral, Q8H, First dose on 09/17/23 at 0600, Last dose on 09/19/23 at 2200, For 3 days Given 09/19/2023 10:45 PM CDT 2 mg Given 09/19/2023 2:32 PM CDT 2 mg Given 09/19/2023 6:28 AM CDT 2 mg dexAMETHasone (DECADRON) tablet 2 mg 2 mg, Oral, Q12H, First dose on Tue09/20/23 at 0800, Last dose on Tue09/21/23 at 2000, For 2 days Given 09/21/2023 8:09 PM CDT 2 mg Given 09/21/2023 8:05 AM CDT 2 mg Given 09/20/2023 7:44 PM CDT 2 mg dexAMETHasone (DECADRON) tablet 2 mg 2 mg, Oral, DAILY, First dose on Tue09/22/23 at 0800, Last dose on Tue09/23/23 at 0800, For 2 days Given 09/22/2023 7:30 AM CDT 2 mg dexAMETHasone (DECADRON) tablet 4 mg 4 mg, Oral, Q8H, First dose on Tue09/14/23 at 2200, Until Discontinued, Post-op Given 09/15/2023 2:14 PM CDT 4 mg Given 09/15/2023 5:57 AM CDT 4 mg Given 09/14/2023 10:05 PM CDT 4 mg dexAMETHasone (DECADRON) tablet 4 mg 4 mg, Oral, Q8H, First dose on Tue09/15/23 at 2200, Last dose on Tue09/16/23 at 2200, For 4 doses Given 09/16/2023 9:14 PM CDT 4 mg Given 09/16/2023 2:42 PM CDT 4 mg Given 09/16/2023 6:50 AM CDT 4 mg dextrose (D50) IVPB 25 g 25 g, Intravenous, Q15MIN PRN, Hypoglycemia, Per Adult Hypoglycemia Treatment Protocol, Starting on Tue09/14/23 at 0559, Per Hypoglycemic episode: Give 25g IV push, recheck POCT glucose in 15 minutes, if result less than 70mg/dL, may repeat. After 2 doses notify Practitioner. May continue to treat while waiting for call back. enoxaparin (LOVENOX) prefilled syringe 40 mg 40 mg, Subcutaneous, Q24H, First dose on Tue09/16/23 at 2000, Until Discontinued, Inject subcutaneously into abdominal tissue ??only. HIGH ALERT medication Given 09/21/2023 8:09 PM CDT 40 mg Abdominal Tissue Given 09/20/2023 7:44 PM CDT 40 mg Ab dominal Tissue Given 09/19/2023 8:16 PM CDT 40 mg Ab dominal Tissue famotidine (PEPCID) tablet 20 mg 20 mg, Oral, BID AC, First dose on Noy 09/15/23 at 1600, Until Discontinued Given 09/22/2023 6:08 AM CDT 20 mg Given 09/21/2023 3:56 PM CDT 20 mg Given 09/21/2023 7:44 AM CDT 20 mg fentaNYL (SUBLIMAZE) injection 25-50 mcg 25-50 mcg, Intravenous, [id number], Pain, Starting on Tue09/14/23 at 1213, Until Tue09/14/23 at 1647, 25 mcg IV q5min prn based on the patient's pain scale rating for mild to moderate pain (1 to 5). 50 mcg IV q5min prn based on the patient's pain scale rating for moderate to severe pain (6 to 10). Total PACU fentanyl dose not to exceed 200 mcg. Use fentanyl initially for a short acting agent for treatment of acute post operative pain. May use in conjuction with a longer acting agent for optimal pain control. Respiratory rate must be greater than 10 to administer medications., PACU (only) Given 09/14/2023 4:04 PM CDT 25 mcg Given 09/14/2023 3:05 PM CDT 25 mcg Given 09/14/2023 2:50 PM CDT 25 mcg glucagon rDNA (diagnostic) (GLUCAGEN) injection 1 mg 1 mg, Intramuscular, Q15MIN PRN, Hypoglycemia, Per Adult Hypoglycemia Treatment Protocol, Starting on Tue09/14/23 at 0559, Until Noy 09/22/23 at 1723, Per Hypoglycemic episode: Give 1mg IM, turn patient on side to prevent aspiration if vomits. If appropriate, establish IV access STAT. Recheck POCT glucose in 15 minutes, if result less than 70mg/dL and still no IV access, may repeat 1mg IM x 1. Recheck POCT glucose in 15 minutes, if result is less than 70mg/dL notify Practitioner. glucose (GLUTOSE) 40 % oral gel 15 g of glucose 15 g of glucose, Oral, Q15MIN PRN, Hypoglycemia, Per Adult Hypoglycemia Treatment Protocol, Starting on Tue09/14/23 at 0559, Until Tue09/22/23 at 1723, Give 15g orally, recheck POCT glucose in 15 minutes, if result less than 70mg/dL, may repeat. After 2 doses notify Practitioner. May continue to treat while waiting for call back. 37.5g tube delivers 15g of glucose hydrALAZINE (APRESOLINE) injection 10 mg 10 mg, Intravenous, Q4H PRN, SBP >, 150, Starting on Tue09/15/23 at 1540, Until Tue09/22/23 at 1723 HYDROmorphone (DILAUDID) injection 0.2-0.3 mg 0.2-0.3 mg, Intravenous, Q10MIN PRN, Pain, Starting on Tue09/14/23 at 1213, Until Tue09/14/23 at 1647, PACU USE ONLY 0.2 mg IV q10min prn based on the patients pain scale rating for mild to moderate pain (1-5) 0.3 mg IV q10min prn based on the patients pain scale rating for moderate to severe pain (6 to 10) Total PACU hydromorphone dose not to exceed 2 mg per hour, PACU (only) Given 09/14/2023 4:04 PM CDT 0.3 mg Given 09/14/2023 3:10 PM CDT 0.3 mg Given 09/14/2023 2:34 PM CDT 0.2 mg HYDROmorphone (DILAUDID) injection 0.2-0.4 mg 0.2-0.4 mg, Intravenous, Q2H PRN, Pain, Use if unable to take PO, Starting on Tue09/14/23 at 0558, Until Tue09/15/23 at 1130, For 48 hours, Give IV opioid for breakthrough pain, if unable to give PO or per patient preference. Given 09/15/2023 2:32 AM CDT 0.4 mg Given 09/14/2023 7:06 PM CDT 0.4 mg Given 09/14/2023 5:11 PM CDT 0.4 mg hydrOXYzine pamoate (VISTARIL) capsule 25 mg 25 mg, Oral, Q6H PRN, Pain, Starting on Tue09/15/23 at 1337, Until Tue09/20/23 at 0905 Given 09/20/2023 4:54 AM CDT 2 5 mg Given 09/19/2023 8:48 PM CDT 25 mg Given 09/19/2023 2:48 PM CDT 25 mg hydrOXYzine pamoate (VISTARIL) capsule 50 mg 50 mg, Oral, Q6H PRN, Pain, Starting on Tue09/20/23 at 0904, Until Tue09/22/23 at 1723 Given 09/22/2023 2:59 PM CDT 5 0 mg Given 09/22/2023 9:15 AM CDT 50 mg Given 09/22/2023 2:27 AM CDT 50 mg insulin lispro (HUMALOG; ADMELOG) injection vial 1-4 Units 1-4 Units, Subcutaneous, HS, First dose on Tue09/14/23 at 2100, Correction Scale Insulin: Blood Sugar 201-250 give 1 units Blood Sugar 251-300 give 2 units Blood Sugar 301-350 give 3 units Blood Sugar greater than 350 give 4 units If Blood Sugar still greater than 350 after next POCT Glucose, notify Practitioner insulin lispro (HUMALOG; ADMELOG) injection vial 1-5 Units 1-5 Units, Subcutaneous, TID WITH MEALS, First dose on Tue09/14/23 at 1730, Correction Scale Insulin: Can be given with carb based insulin OR if patient is not eating or NPO, give within 15 minutes of POCT glucose. Blood Sugar 150 - 200 give 1 units Blood Sugar 201-250 give 2 units Blood Sugar 251-300 give 3 units Blood Sugar 301-350 give 4 units Blood Sugar greater than 350 give 5 units If Blood Sugar still greater than 350 after next POCT Glucose, notify Practitioner Given 09/19/2023 12:07 PM CDT 1 Units Abdominal Tissue Given 09/16/2023 12:43 PM CDT 1 Units R ight Arm labetalol (NORMODYNE) injection 10-20 mg 10-20 mg, Intravenous, Q4H PRN, SBP >, 150. 1st line if HR >55, Starting on Tue09/15/23 at 1540, Until Tue09/22/23 at 1723, Give over 1 to 2 minutes lactated ringers infusion 30 mL/hr, Intravenous, CONTINUOUS, Starting on Tue09/14/23 at 0530, Pre-op Restarted 09/14/2023 7:36 AM CDT Started 09/14/2023 6:06 AM CDT 30 mL/hr 30 mL/hr levETIRAcetam (KEPPRA) tablet 500 mg 500 mg, Oral, BID, First dose on Tue09/14/23 at 2000, Last dose on Tue09/28/23 at 0800, For 14 days, Post-op Given 09/22/2023 7:30 AM CDT 500 mg Given 09/21/2023 8:09 PM CDT 500 mg Given 09/21/2023 8:05 AM CDT 500 mg magnesium sulfate 2 g in water 50 mL premade IVPB 2 g, Intravenous, Administer over 120 Minutes, ONCE, On Tue09/14/23 at 2000, For 1 dose, Magnesium Replacement Protocol: *Give 2g total. *Recheck lab 6 hours after replacement complete and next AM. IF 6 hour recheck draw would be between [id number], use current day AM lab draw. If draw time will be after current day AM labs, place recheck lab orders as directed. Started 09/14/2023 8:09 PM CDT 2 g magnesium sulfate 2 g in water 50 mL premade IVPB 2 g, Intravenous, Administer over 120 Minutes, ONCE, On Tue09/16/23 at 0915, For 1 dose, Magnesium Replacement Protocol: *Give 2g total. *Recheck lab 6 hours after replacement complete and next AM. IF 6 hour recheck draw would be between [phone], use current day AM lab draw. If draw time will be after current day AM labs, place recheck lab orders as directed. Started 09/16/2023 9:48 AM CDT 2 g magnesium sulfate 2 g in water 50 mL premade IVPB 2 g, Intravenous, Administer over 120 Minutes, ONCE, On Tue09/18/23 at 1000, For 1 dose, Magnesium Replacement Protocol: *Give 2g total. *Recheck lab 6 hours after replacement complete and next AM. IF 6 hour recheck draw would be between [phone], use current day AM lab draw. If draw time will be after current day AM labs, place recheck lab orders as directed. Started 09/18/2023 10:01 AM CDT 2 g methocarbamol (ROBAXIN) tablet 500 mg 500 mg, Oral, QID, First dose on Noy 09/15/23 at 1600, Until Discontinued Given 09/22/2023 12:10 PM CDT 500 mg Given 09/22/2023 7:30 AM CDT 500 mg Given 09/21/2023 8:08 PM CDT 500 mg naloxone (NARCAN) injection 0.2 mg 0.2 mg, Intravenous, PRN PER PARAMETERS, Opioid Reversal, Excessive Sedation/Respiratory Rate less than 8 breaths per minute.? Notify Practitioner if given., Starting on Tue09/14/23 at 0556, Until Noy 09/22/23 at 1723, Excessive Sedation/Respiratory Rate less than 8 breaths per minute.? Notify Practitioner if given. niCARdipine (CARDENE) 50 mg in sodium chloride 0.9% 250 mL (0.2 mg/mL) premade IV infusion 0-15 mg/hr (0-75 mL/hr), Intravenous, TITRATE, Starting on Tue09/14/23 at 1230, Until Tue09/14/23 at 1703, Starting Rate: 5mg/hr Titrate by: 2.5mg/hr q 15min to goal SBP less than 140 mmHg Contact practitioner if unable to meet goal within titration parameters, PACU & Post-op Rate/Dose Change 09/14/2023 3:13 PM CDT 5 mg/hr 25 mL/hr Rate/Dose Change 09/14/2023 2:51 PM CDT 7.5 mg/hr 37.5 mL /hr Rate/Dose Change 09/14/2023 1:24 PM CDT 10 mg/hr 50 mL/h r oxyCODONE (ROXICODONE) immediate release tablet 5 mg 5 mg, Oral, ONCE (NON-SCHEDULED), Starting on Tue09/14/23 at 1415, Until Tue09/14/23 at 1400, For 1 dose, PACU (only) Given 09/14/2023 2:00 PM CDT 5 mg oxyCODONE (ROXICODONE) immediate release tablet 5 mg 5 mg, Oral, ONCE (NON-SCHEDULED), Starting on Tue09/14/23 at 1530, Until Tue09/14/23 at 1514, For 1 dose, PACU (only) Given 09/14/2023 3:14 PM CDT 5 mg oxyCODONE (ROXICODONE) immediate release tablet 5-10 mg 5-10 mg, Oral, Q4H PRN, Pain, Starting on Tue09/14/23 at 0556, Until Tue09/20/23 at 0905, Give PO opioid if able to take PO and pain not well controlled with other medications or interventions. Given 09/20/2023 4:54 AM CDT 10 mg Given 09/20/2023 12:52 AM CDT 10 mg Given 09/19/2023 8:48 PM CDT 10 mg oxyCODONE (ROXICODONE) immediate release tablet 5-10 mg 5-10 mg, Oral, Q3H PRN, Pain, Starting on Tue09/20/23 at 0905, Until Tue09/22/23 at 1723, Give PO opioid if able to take PO and pain not well controlled with other medications or interventions. Given 09/22/2023 3:00 PM CDT 10 mg Given 09/22/2023 12:10 PM CDT 10 mg Given 09/22/2023 9:16 AM CDT 10 mg polyethylene glycol (MIRALAX) oral powder 17 g 17 g, Oral, DAILY PRN, Constipation, No stool in the last 2 days, Starting on Tue09/14/23 at 1701, Until Tue09/22/23 at 1723, Cumulative bowel medication orders. Administer based on medications available on APR. If no stool in last day start Senna BID PRN no stool, if no stool in last 2 days add Miralax DAILY PRN no stool, if no stool in last 3 days add bisacodyl suppository DAILY PRN until patient stools. When patient stools, stop giving PRN meds and continue monitoring for bowel activity. When no stools X 1 day, begin regimen again until patient stools., Post-op Given 09/19/2023 8:20 PM CDT 17 g Given 09/16/2023 5:16 PM CDT 17 g polyethylene glycol (MIRALAX) oral powder 17 g 17 g, Oral, DAILY, First dose on Tue09/15/23 at 0800, Until Discontinued, Give daily while on narcotics. Do not give if ileus present., Post-op Given 09/22/2023 7:30 AM CDT 17 g Given 09/21/2023 8:04 AM CDT 17 g Given 09/20/2023 8:33 AM CDT 17 g senna (SENOKOT) tablet 2 Tablet 2 Tablet, Oral, BID PRN, Constipation, No stool in the last day, Starting on Tue09/14/23 at 1701, Until Tue09/22/23 at 1723, Cumulative bowel medication orders. Administer based on medications available on APR. If no stool in last day start Senna BID PRN no stool, if no stool in last 2 days add Miralax DAILY PRN no stool, if no stool in last 3 days add bisacodyl suppository DAILY PRN until patient stools. When patient stools, stop giving PRN meds and continue monitoring for bowel activity. When no stools X 1 day, begin regimen again until patient stools., Post-op Given 09/22/2023 1:45 PM CDT 2 Tablets Given 09/21/2023 2:09 PM CDT 2 Tablets sennosides-docusate sodium (SENOKOT S) 8.6-50 MG per tablet 1 Tablet 1 Tablet, Oral, BID, First dose on Tue09/14/23 at 2000, Until Discontinued, as laxative/stimulant, stool-softening agent, Post-op Given 09/20/2023 8:33 AM CDT 1 Tablet Given 09/19/2023 8:16 PM CDT 1 Tablet Given 09/19/2023 8:35 AM CDT 1 Tablet sennosides-docusate sodium (SENOKOT S) 8.6-50 MG per tablet 2 Tablet 2 Tablet, Oral, BID, First dose (after last modification) on Tue09/20/23 at 2000, Until Discontinued, as laxative/stimulant, stool-softening agent, Post-op Given 09/22/2023 7:30 AM CDT 2 Tablets Given 09/21/2023 8:08 PM CDT 2 Tablets Given 09/21/2023 8:05 AM CDT 2 Tablets sodium chloride 0.9% bolus 1,000 mL 1,000 mL, Intravenous, Administer over 1 Hours, ONCE, On Tue09/15/23 at 0045, For 1 dose Started 09/15/2023 12:23 AM CDT 1,000 mL sodium chloride 0.9% bolus 500 mL 500 mL, Intravenous, Administer over 1 Hours, ONCE, On Tue09/14/23 at 2245, For 1 dose Started 09/14/2023 10:41 PM CDT 500 mL sodium chloride 0.9% infusion Intravenous, at 75 mL/hr, CONTINUOUS, Starting on Tue09/14/23 at 1730, PACU & Post-op Started 09/14/2023 7:02 PM CDT 75 mL/hr traZODone (DESYREL) tablet 200 mg 200 mg, Oral, HS, First dose on Tue09/14/23 at 2100, Until Discontinued Given 09/21/2023 9:11 PM CDT 200 mg Given 09/20/2023 10:44 PM CDT 200 mg Given 09/19/2023 8:48 PM CDT 200 mg varenicline (CHANTIX) tablet 1 mg 1 mg, Oral, DAILY WITH MEAL, First dose (after last modification) on [facility] 09/15/23 at 1300, Until Discontinued, Give with meals and with a full glass of water. Given 09/22/2023 7:30 AM CDT 1 mg Given 09/21/2023 8:05 AM CDT 1 mg Given 09/20/2023 8:33 AM CDT 1 mg documented in this encounter Active and Recently Administered Medications Times are shown in CDT. Scheduled Medication Order 09/20/2023 09/21/2023 09/22/2023 acetaminophen (TYLENOL) tablet 1,000 mg 1,000 mg, Oral, TID, First dose (after last modification) on Noy 09/15/23 at 1400, Until Discontinued, Initially give acetaminophen for patient with mild pain. Acetaminophen may be given WITH other pain medications as adjunct pain relief. Do not give two acetaminophen containing medications within 4 hours of each other. 0832 (Given - Provider: Kathy Su RN)1625 (Given - Provider: Kathy Su RN)2346 (Given - Provider: Laurence Phelan RN) 0805 (Given - Provider: Hina Flood RN)1357 (Given - Provider: Hina Flood, IRINA)2007 (Given - Provider: Esther Pina RN) 0730 (Given - Provider: Hina Flood RN)1338 (Given - Provider: Hina Flood, IRINA) Adult Magnesium Replacement Protocol: goal 2 mg/dL MAR placement bonner for Magnesium Replacement Protocol: see nursing protocol and med replacement orders., Q8H, First dose on Tue09/14/23 at 1730 0837 (Noted - Provider: Kathy Su RN)1630 (Noted - Provider: Kathy Su RN)2325 (Noted - Provider: Laurence Phelan RN) 0715 (Noted - Provider: Hina Flood RN)1517 (Noted - Provider: Esther Pina, IRINA) 0313 (Noted - Provider: Toya Leija RN)0706 (Noted - Provider: Hina Flood RN) Adult Phosphorus Replacement Protocol: goal 2 mg/dL MAR placement bonner for Phosphorus Replacement Protocol: see nursing protocol and med replacement orders., Q8H, First dose on Tue09/14/23 at 1730 0837 (Noted - Provider: Kathy Su RN)1630 (Noted - Provider: Kathy Su RN)2326 (Noted - Provider: Laurence Phelan RN) 0715 (Noted - Provider: Hina Flood RN)1517 (Noted - Provider: Esther Pina RN) 0313 (Noted - Provider: Toya Leija, IRINA)0706 (Noted - Provider: Hina Flood RN) Adult Potassium Replacement Protocol: goal 3.5 mmol/L MAR placement bonner for Potassium Replacement Protocol: see nursing protocol and med replacement orders., Q8H, First dose on Tue09/14/23 at 1730 0837 (Noted - Provider: Kathy Su RN)1631 (Noted - Provider: Kathy Su RN)2326 (Noted - Provider: Laurence Phelan RN) 0715 (Noted - Provider: Hina Flood RN)1517 (Noted - Provider: Esther Pina, IRINA) 0313 (Noted - Provider: Toya Leija RN)0706 (Noted - Provider: Hina Flood RN) bacitracin 500 UNIT/GM ointment Topical, TID, First dose on Tue09/15/23 at 2000, Apply topically to (specify site) post-op incision BID Hazardous waste disposal required. 0837 (Given - Provider: Kathy Su RN)1626 (Given - Provider: Kathy Su RN)1946 (Given - Provider: Laurence Phelan RN) 08 (Given - Provider: Hina Flood RN)1409 (Given - Provider: Hina Flood RN)2008 (Not Given - Provider: Esther Pina RN - Reason: Other (Enter Reason in Comment Area) - Comment: per provider, no longer needed) 0730 (Given - Provider: Hina Flood RN)1333 (Not Given - Provider: Hina Flood RN - Reason: Order parameters not met) dexAMETHasone (DECADRON) tablet 2 mg (COMPLETED)(Linked Group 1) 2 mg, Oral, Q12H, First dose on Tue09/20/23 at 0800, Last dose on Tue09/21/23 at 2000, For 2 days 0833 (Given - Provider: Kathy Su RN)194 (Given - Provider: Laurence Phelan RN) 08 (Given - Provider: Hina Flood, IRINA)2008 (Given - Provider: Esther Pina, IRINA) dexAMETHasone (DECADRON) tablet 2 mg(Linked Group 1) 2 mg, Oral, DAILY, First dose on Tue09/22/23 at 0800, Last dose on Tue09/23/23 at 0800, For 2 days 0730 (Given - Provider: Hina Flood, IRINA) enoxaparin (LOVENOX) prefilled syringe 40 mg 40 mg, Subcutaneous, Q24H, First dose on Tue09/16/23 at 2000, Until Discontinued, Inject subcutaneously into abdominal tissue ??only. HIGH ALERT medication 1943 (Given - Provider: Laurence Phelan RN) 2008 (Given - Provider: Esther Pina, IRINA) famotidine (PEPCID) tablet 20 mg 20 mg, Oral, BID AC, First dose on Tue09/15/23 at 1600, Until Discontinued 0645 (Given - Provider: Laurence Phelan RN)1627 (Given - Provider: Kathy Su RN) 0744 (Given - Provider: Laurence Phelan RN)1556 (Given - Provider: Esther Pina RN) 0608 (Given - Provider: Toya Leija RN) insulin lispro (HUMALOG; ADMELOG) injection vial 1-4 Units(Linked Group 2) 1-4 Units, Subcutaneous, HS, First dose on Tue09/14/23 at 2100, Correction Scale Insulin: Blood Sugar 201-250 give 1 units Blood Sugar 251-300 give 2 units Blood Sugar 301-350 give 3 units Blood Sugar greater than 350 give 4 units If Blood Sugar still greater than 350 after next POCT Glucose, notify Practitioner 223 (Not Given - Provider: Laurence Phelan RN - Reason: Order parameters not met) 2146 (Not Given - Provider: Esther Pina RN - Reason: Order parameters not met - Comment: BS 111) insulin lispro (HUMALOG; ADMELOG) injection vial 1-5 Units(Linked Group 2) 1-5 Units, Subcutaneous, TID WITH MEALS, First dose on Tue09/14/23 at 1730, Correction Scale Insulin: Can be given with carb based insulin OR if patient is not eating or NPO, give within 15 minutes of POCT glucose. Blood Sugar 150 - 200 give 1 units Blood Sugar 201-250 give 2 units Blood Sugar 251-300 give 3 units Blood Sugar 301-350 give 4 units Blood Sugar greater than 350 give 5 units If Blood Sugar still greater than 350 after next POCT Glucose, notify Practitioner 0824 (Not Given - Provider: Kathy Su RN - Reason: Order parameters not met)1200 (Not Given - Provider: Kathy Su RN - Reason: Other (Enter Reason in Comment Area))1626 (Not Given - Provider: Kathy Su RN - Reason: Order parameters not met) 0812 (Not Given - Provider: Hina Flood RN - Reason: Order parameters not met)1407 (Not Given - Provider: Hina Flood RN - Reason: Order parameters not met)1707 (Not Given - Provider: Esther Pina RN - Reason: Order parameters not met - Comment: BS 105) 0731 (Not Given - Provider: Hina Flood RN - Reason: Order parameters not met)1314 (Not Given - Provider: Hina Flood RN - Reason: Order parameters not met) levETIRAcetam (KEPPRA) tablet 500 mg 500 mg, Oral, BID, First dose on Tue09/14/23 at 2000, Last dose on Tue09/28/23 at 0800, For 14 days, Post-op 0833 (Given - Provider: Kathy Su RN)1944 (Given - Provider: Laurence Phelan RN) 08 (Given - Provider: Hina Flood RN)2008 (Given - Provider: Esther Pina RN) 0730 (Given - Provider: Hina Flood RN) lidocaine (XYLOCAINE) 1 % injection 30 mL 30 mL, Intradermal, HEAVY LIFT RIGGER, On Tue09/14/23 at 1730, For 1 dose, For drain removal post-op, Post-op methocarbamol (ROBAXIN) tablet 500 mg 500 mg, Oral, QID, First dose on Noy 09/15/23 at 1600, Until Discontinued 0833 (Given - Provider: Kathy Su RN)1124 (Given - Provider: Kathy Su RN)1625 (Given - Provider: Kathy Su RN)2346 (Given - Provider: Laurence Phelan RN) 0805 (Given - Provider: Hina Flood RN)1152 (Given - Provider: Hina Flood RN)1556 (Given - Provider: Esther Pina RN)2007 (Given - Provider: Esther Pina RN) 0730 (Given - Provider: Hina Flood RN)1210 (Given - Provider: Hina Flood RN) polyethylene glycol (MIRALAX) oral powder 17 g 17 g, Oral, DAILY, First dose on N[place] 09/15/23 at 0800, Until Discontinued, Give daily while on narcotics. Do not give if ileus present., Post-op 0833 (Given - Provider: Kathy Su RN) 0804 (Given - Provider: Hina Flood RN) 0730 (Given - Provider: Hina Flood RN) sennosides-docusate sodium (SENOKOT S) 8.6-50 MG per tablet 1 Tablet (CANCELED) 1 Tablet, Oral, BID, First dose on Tue09/14/23 at 2000, Until Discontinued, as laxative/stimulant, stool-softening agent, Post-op 0833 (Given - Provider: Kathy Su RN) sennosides-docusate sodium (SENOKOT S) 8.6-50 MG per tablet 2 Tablet 2 Tablet, Oral, BID, First dose (after last modification) on Tue09/20/23 at 2000, Until Discontinued, as laxative/stimulant, stool-softening agent, Post-op 194 (Given - Provider: Laurence Phelan RN) 08 (Given - Provider: Hina Flood RN)2007 (Given - Provider: Esther Pina RN) 07 (Given - Provider: Hina Flood RN) traZODone (DESYREL) tablet 200 mg 200 mg, Oral, HS, First dose on Tue09/14/23 at 2100, Until Discontinued 2243 (Given - Provider: Laurence Phelan RN) 2110 (Given - Provider: Esther Pina, IRINA) varenicline (CHANTIX) tablet 1 mg 1 mg, Oral, DAILY WITH MEAL, First dose (after last modification) on Tue09/15/23 at 1300, Until Discontinued, Give with meals and with a full glass of water. 0833 (Given - Provider: Kathy Su RN) 0805 (Given - Provider: Hina Flood RN) 0730 (Given - Provider: Hina Flood RN) PRN Medication Order 09/20/2023 09/21/2023 09/22/2023 bisacodyl (DULCOLAX) rectal suppository 10 mg(Linked Group 3) 10 mg, Rectal, DAILY PRN, Constipation, No stool in the last 3 days, Starting on Tue09/14/23 at 1701, Until Tue09/22/23 at 1723, Cumulative bowel medication orders. Administer based on medications available on APR. If no stool in last day start Senna BID PRN no stool, if no stool in last 2 days add Miralax DAILY PRN no stool, if no stool in last 3 days add bisacodyl suppository DAILY PRN until patient stools. When patient stools, stop giving PRN meds and continue monitoring for bowel activity. When no stools X 1 day, begin regimen again until patient stools. Do not give if Absolute Neutrophil Count (ANC) is 1 k/cmm or less OR platelet count is 50 k/cmm or less., Post-op dextrose (D50) IVPB 25 g(Linked Group 4) 25 g, Intravenous, Q15MIN PRN, Hypoglycemia, Per Adult Hypoglycemia Treatment Protocol, Starting on Tue09/14/23 at 0559, Per Hypoglycemic episode: Give 25g IV push, recheck POCT glucose in 15 minutes, if result less than 70mg/dL, may repeat. After 2 doses notify Practitioner. May continue to treat while waiting for call back. glucagon rDNA (diagnostic) (GLUCAGEN) injection 1 mg(Linked Group 4) 1 mg, Intramuscular, Q15MIN PRN, Hypoglycemia, Per Adult Hypoglycemia Treatment Protocol, Starting on Tue09/14/23 at 0559, Until Tue09/22/23 at 1723, Per Hypoglycemic episode: Give 1mg IM, turn patient on side to prevent aspiration if vomits. If appropriate, establish IV access STAT. Recheck POCT glucose in 15 minutes, if result less than 70mg/dL and still no IV access, may repeat 1mg IM x 1. Recheck POCT glucose in 15 minutes, if result is less than 70mg/dL notify Practitioner. glucose (GLUTOSE) 40 % oral gel 15 g of glucose(Linked Group 4) 15 g of glucose, Oral, Q15MIN PRN, Hypoglycemia, Per Adult Hypoglycemia Treatment Protocol, Starting on Tue09/14/23 at 0559, Until Tue09/22/23 at 1723, Give 15g orally, recheck POCT glucose in 15 minutes, if result less than 70mg/dL, may repeat. After 2 doses notify Practitioner. May continue to treat while waiting for call back. 37.5g tube delivers 15g of glucose hydrALAZINE (APRESOLINE) injection 10 mg 10 mg, Intravenous, Q4H PRN, SBP >, 150, Starting on Tue09/15/23 at 1540, Until Tue09/22/23 at 1723 hydrOXYzine pamoate (VISTARIL) capsule 25 mg (CANCELED) 25 mg, Oral, Q6H PRN, Pain, Starting on Tue09/15/23 at 1337, Until Tue09/20/23 at 0905 0454 (Given - Provider: Laurence Phelan RN) hydrOXYzine pamoate (VISTARIL) capsule 50 mg 50 mg, Oral, Q6H PRN, Pain, Starting on Tue09/20/23 at 0904, Until Tue09/22/23 at 1723 1124 (Given - Provider: Kathy Su RN)1738 (Given - Provider: Kathy Su RN)2346 (Given - Provider: Laurence Phelan RN) 0744 (Given - Provider: Laurence Phelan RN)1356 (Given - Provider: Hina Flood, IRINA)2111 (Given - Provider: Esther Pina RN) 0227 (Given - Provider: Toya Leija RN)0915 (Given - Provider: iHna Flood, IRINA)1459 (Given - Provider: Hina Flood, IRINA) labetalol (NORMODYNE) injection 10-20 mg 10-20 mg, Intravenous, Q4H PRN, SBP >, 150. 1st line if HR >55, Starting on Tue09/15/23 at 1540, Until Tue09/22/23 at 1723, Give over 1 to 2 minutes naloxone (NARCAN) injection 0.2 mg 0.2 mg, Intravenous, PRN PER PARAMETERS, Opioid Reversal, Excessive Sedation/Respiratory Rate less than 8 breaths per minute.? Notify Practitioner if given., Starting on Tue09/14/23 at 0556, Until Tue09/22/23 at 1723, Excessive Sedation/Respiratory Rate less than 8 breaths per minute.? Notify Practitioner if given. oxyCODONE (ROXICODONE) immediate release tablet 5-10 mg (CANCELED) 5-10 mg, Oral, Q4H PRN, Pain, Starting on Tue09/14/23 at 0556, Until Tue09/20/23 at 0905, Give PO opioid if able to take PO and pain not well controlled with other medications or interventions. 0052 (Given - Provider: Laurence Phelan RN)0454 (Given - Provider: Laurence Phelan RN) oxyCODONE (ROXICODONE) immediate release tablet 5-10 mg 5-10 mg, Oral, Q3H PRN, Pain, Starting on Tue09/20/23 at 0905, Until Tue09/22/23 at 1723, Give PO opioid if able to take PO and pain not well controlled with other medications or interventions. 0948 (Given - Provider: Kathy Su RN)1253 (Given - Provider: Esmer Bergeron RN)1630 (Given - Provider: Kathy Su RN)1944 (Given - Provider: Laurence Phelan RN)2244 (Given - Provider: Laurence Phelan RN) 0238 (Given - Provider: Laurence Phelan RN)0744 (Given - Provider: Laurence Phelan RN)1045 (Given - Provider: Hina Flood RN)1357 (Given - Provider: Hina Flood RN)1702 (Given - Provider: Esther Pina, IRINA)2008 (Given - Provider: Esther Pina, IRINA)2314 (Given - Provider: Esther Pina, IRINA) 0227 (Given - Provider: Toya Leija RN)0607 (Given - Provider: Toya Leija RN)0916 (Given - Provider: Hina Flood RN)1210 (Given - Provider: Hina Flood, IRINA)1500 (Given - Provider: Hina Flood RN) polyethylene glycol (MIRALAX) oral powder 17 g(Linked Group 3) 17 g, Oral, DAILY PRN, Constipation, No stool in the last 2 days, Starting on Tue09/14/23 at 1701, Until Tue09/22/23 at 1723, Cumulative bowel medication orders. Administer based on medications available on APR. If no stool in last day start Senna BID PRN no stool, if no stool in last 2 days add Miralax DAILY PRN no stool, if no stool in last 3 days add bisacodyl suppository DAILY PRN until patient stools. When patient stools, stop giving PRN meds and continue monitoring for bowel activity. When no stools X 1 day, begin regimen again until patient stools., Post-op senna (SENOKOT) tablet 2 Tablet(Linked Group 3) 2 Tablet, Oral, BID PRN, Constipation, No stool in the last day, Starting on Tue09/14/23 at 1701, Until Tue09/22/23 at 1723, Cumulative bowel medication orders. Administer based on medications available on APR. If no stool in last day start Senna BID PRN no stool, if no stool in last 2 days add Miralax DAILY PRN no stool, if no stool in last 3 days add bisacodyl suppository DAILY PRN until patient stools. When patient stools, stop giving PRN meds and continue monitoring for bowel activity. When no stools X 1 day, begin regimen again until patient stools., Post-op 1409 (Given - Provider: Hina Flood, IRINA) 1345 (Given - Provider: Hina Flood, IRINA) Linked Groups Order Group 1: dexAMETHasone (DECADRON) tablet 4 mg (COMPLETED) 4 mg, Oral, Q8H, First dose on Tue09/15/23 at 2200, Last dose on Tue09/16/23 at 2200, For 4 doses And dexAMETHasone (DECADRON) tablet 2 mg (COMPLETED) 2 mg, Oral, Q8H, First dose on Tue09/17/23 at 0600, Last dose on Tue09/19/23 at 2200, For 3 days And dexAMETHasone (DECADRON) tablet 2 mg (COMPLETED)Jump to med 2 mg, Oral, Q12H, First dose on Tue09/20/23 at 0800, Last dose on Tue09/21/23 at 2000, For 2 days And dexAMETHasone (DECADRON) tablet 2 mgJump to med 2 mg, Oral, DAILY, First dose on Tue09/22/23 at 0800, Last dose on Tue09/23/23 at 0800, For 2 days Group 2: insulin lispro (HUMALOG; ADMELOG) injection vial 1-5 UnitsJump to med 1-5 Units, Subcutaneous, TID WITH MEALS, First dose on Tue09/14/23 at 1730, Correction Scale Insulin: Can be given with carb based insulin OR if patient is not eating or NPO, give within 15 minutes of POCT glucose. Blood Sugar 150 - 200 give 1 units Blood Sugar 201-250 give 2 units Blood Sugar 251-300 give 3 units Blood Sugar 301-350 give 4 units Blood Sugar greater than 350 give 5 units If Blood Sugar still greater than 350 after next POCT Glucose, notify Practitioner And insulin lispro (HUMALOG; ADMELOG) injection vial 1-4 UnitsJump to med 1-4 Units, Subcutaneous, HS, First dose on Tue09/14/23 at 2100, Correction Scale Insulin: Blood Sugar 201-250 give 1 units Blood Sugar 251-300 give 2 units Blood Sugar 301-350 give 3 units Blood Sugar greater than 350 give 4 units If Blood Sugar still greater than 350 after next POCT Glucose, notify Practitioner Group 3: senna (SENOKOT) tablet 2 TabletJump to med 2 Tablet, Oral, BID PRN, Constipation, No stool in the last day, Starting on Tue09/14/23 at 1701, Until Tue09/22/23 at 1723, Cumulative bowel medication orders. Administer based on medications available on APR. If no stool in last day start Senna BID PRN no stool, if no stool in last 2 days add Miralax DAILY PRN no stool, if no stool in last 3 days add bisacodyl suppository DAILY PRN until patient stools. When patient stools, stop giving PRN meds and continue monitoring for bowel activity. When no stools X 1 day, begin regimen again until patient stools., Post-op And polyethylene glycol (MIRALAX) oral powder 17 gJump to med 17 g, Oral, DAILY PRN, Constipation, No stool in the last 2 days, Starting on Tue09/14/23 at 1701, Until Tue09/22/23 at 1723, Cumulative bowel medication orders. Administer based on medications available on APR. If no stool in last day start Senna BID PRN no stool, if no stool in last 2 days add Miralax DAILY PRN no stool, if no stool in last 3 days add bisacodyl suppository DAILY PRN until patient stools. When patient stools, stop giving PRN meds and continue monitoring for bowel activity. When no stools X 1 day, begin regimen again until patient stools., Post-op And bisacodyl (DULCOLAX) rectal suppository 10 mgJump to med 10 mg, Rectal, DAILY PRN, Constipation, No stool in the last 3 days, Starting on Tue09/14/23 at 1701, Until Tue09/22/23 at 1723, Cumulative bowel medication orders. Administer based on medications available on APR. If no stool in last day start Senna BID PRN no stool, if no stool in last 2 days add Miralax DAILY PRN no stool, if no stool in last 3 days add bisacodyl suppository DAILY PRN until patient stools. When patient stools, stop giving PRN meds and continue monitoring for bowel activity. When no stools X 1 day, begin regimen again until patient stools. Do not give if Absolute Neutrophil Count (ANC) is 1 k/cmm or less OR platelet count is 50 k/cmm or less., Post-op Group 4: glucose (GLUTOSE) 40 % oral gel 15 g of glucoseJump to med 15 g of glucose, Oral, Q15MIN PRN, Hypoglycemia, Per Adult Hypoglycemia Treatment Protocol, Starting on Tue09/14/23 at 0559, Until Noy 09/22/23 at 1723, Give 15g orally, recheck POCT glucose in 15 minutes, if result less than 70mg/dL, may repeat. After 2 doses notify Practitioner. May continue to treat while waiting for call back. 37.5g tube delivers 15g of glucose Or dextrose (D50) IVPB 25 gJump to med 25 g, Intravenous, Q15MIN PRN, Hypoglycemia, Per Adult Hypoglycemia Treatment Protocol, Starting on Tue09/14/23 at 0559, Per Hypoglycemic episode: Give 25g IV push, recheck POCT glucose in 15 minutes, if result less than 70mg/dL, may repeat. After 2 doses notify Practitioner. May continue to treat while waiting for call back. Or glucagon rDNA (diagnostic) (GLUCAGEN) injection 1 mgJump to med 1 mg, Intramuscular, Q15MIN PRN, Hypoglycemia, Per Adult Hypoglycemia Treatment Protocol, Starting on 09/14/23 at 0559, Until Noy 09/22/23 at 1723, Per Hypoglycemic episode: Give 1mg IM, turn patient on side to prevent aspiration if vomits. If appropriate, establish IV access STAT. Recheck POCT glucose in 15 minutes, if result less than 70mg/dL and still no IV access, may repeat 1mg IM x 1. Recheck POCT glucose in 15 minutes, if result is less than 70mg/dL notify Practitioner. documented in this encounter Care Teams Nurse Unit Manager Relationship Specialty Start Date End Date Svitlana Olmos MD [address] [place] [address] PCP - General 05/30/10 documented as of this encounter
--- OUTSIDE RECORDS SUMMARY | 2023-09-28 12:47 | XMS_ITS | Encounter Summary ---
Author Organization [facility] Address [address] [place] [address] Care Team Providers Care Reporting Manager Name Role Phone Svitlana Olmos MD Primary Care Provider [phone] Reason for Visit * Auth/Cert (Routine) Specialty Diagnoses / Procedures Referred By Martir seay Referred To Contact Diagnoses Meningioma (HRC) . Procedures Stealth guided Medial Eyebrow Craniotomy for Meningioma Resection. IMAGE GUIDANCE ADD ON NEURO (*) Referral ID Status Reason Start Date Expiration Date Visits Re quested Visits Authorized [id number] 1 1 Encounter Details Date Type Department Care Team (Late st Contact Info) Description 09/15/2023 12:20 AM CDT Ancillary Procedure [facility] [address] [place] [address] Jg Munguia MD [address] [place] [id number] Social History Tobacco Use Types Packs/Day Years Used Date Smoking Tobacco: Every Day Cigarettes 1 40.2 Started: 02/28/1979; Last attempted to quit: 05/30/2019 Smokeless Tobacco: Never Comments:Smoking History Pac ks/day: quit 06/13/2023 Alcohol Use Standard Drinks/Week Comments No 0 (1 standard drink = 0.6 oz pur e alcohol) [facility] Utilities Answer Date Recorded In the past 12 months has [employer], gas, oil, or water [employer] threatened to shut off services in your [...] place to sleep or slept in a residential (including now)? No 09/14/2023 Sex and Gender Information Value Date Recorded Sex Assigned at Not on file Gender Identity Not on file Sexual Orientation Not on file documented as of this encounter Plan of Treatment Upcoming Encounters Date Type Department Care Team (Late st Contact Info) Description 09/29/2023 8:40 AM CDT Appointment [facility] Neurosurgery/Ortho Spine [address] [facility] [address] 099 Nurse Visit 10/03/2023 11:00 AM CDT Appointment [facility] [address] [place] [address] Svitlana Olmos MD [address] [address] 10/20/2023 10:30 AM CDT Appointment [facility] Neurosurgery/Ortho Spine [address] [place] [address] 12/06/2023 10:20 AM CDT Appointment [facility] Neurosurgery/Ortho Spine [address] [place] [address] Jg Munguia MD [address] [place] [address] 01/03/2024 11:20 AM POLICE JUSTICE Appointment [facility] [address] [place] [address] [facility] [address] [place], [place] [id number] documented as of this encounter Procedures Procedure Name Priority Date/Time Associated Diagnosis Comments INPATIENT TELEMETRY MONITORING Routine 09/22/2023 8:37 AM CDT INPATIENT TELEMETRY MONITORING Routine 09/21/2023 11:02 PM CDT INPATIENT TELEMETRY MONITORING Routine 09/21/2023 7:15 PM CDT INPATIENT TELEMETRY MONITORING Routine 09/21/2023 10:16 AM CDT INPATIENT TELEMETRY MONITORING Routine 09/20/2023 7:45 PM CDT INPATIENT TELEMETRY MONITORING Routine 09/20/2023 9:15 AM CDT INPATIENT TELEMETRY MONITORING Routine 09/19/2023 8:16 PM CDT INPATIENT TELEMETRY MONITORING Routine 09/19/2023 8:13 AM CDT INPATIENT TELEMETRY MONITORING Routine 09/18/2023 9:16 AM CDT INPATIENT TELEMETRY MONITORING Routine 09/18/2023 12:28 AM CDT INPATIENT TELEMETRY MONITORING Routine 09/17/2023 1:00 AM CDT INPATIENT TELEMETRY MONITORING Routine 09/16/2023 3:26 PM CDT MR BRAIN W/WO IV CONT Routine 09/15/2023 2:36 AM CDT documented in this encounter Results * INPATIENT TELEMETRY MONITORING (09/22/2023 8:37 AM CDT) TELE P-R INTERVAL 0.21 MUSE [facility] TELE QRS DURATION 0.08 MUSE GHP TELE R-R INTERVAL 1.09 MUSE [facility] TELE INTERPRETATION 1 AV Block sinus ck Hina Prieto MUSE [facility] 09/22/2023 8:37 AM CDT Narrative MUSE [facility] - 09/22/2023 8:51 AM CDT 1 AV Block ??sinus ck Hina Prieto Interface Provider EKG Performing Organization Address City/State/[facility] Co de Phone Number MUSE [facility] [address] [place] [id number] * INPATIENT TELEMETRY MONITORING (09/21/2023 11:02 PM CDT) TELE P-R INTERVAL 0.23 MUSE GHP TELE QRS DURATION 0.06 MUSE GHP TELE R-R INTERVAL 1.26 MUSE [facility] TELE INTERPRETATION Sinus Ck HR 40s, w/ 1st Laurence DIEGO RN MUSE [facility] 09/21/2023 11:0 2 PM CDT Narrative MUSE [facility] - 09/22/2023 2:40 AM CDT Sinus Ck ??HR 40s, w/ 1st AVB, Laurence Phelan RN Interface Provider EKG Performing Organization Address [facility] de Phone Number MUSE [facility] [address] [place] [address] * INPATIENT TELEMETRY MONITORING (09/21/2023 7:15 PM CDT) TELE P-R INTERVAL 0.22 MUSE G[facility] TELE QRS DURATION 0.06 MUSE [facility] TELE R-R INTERVAL 1.16 MUSE G[facility] TELE QT 0.50 MUSE [facility]HP TELE QTC 0.46 MUSE [facility] TELE INTERPRETATION Sinus Ck HR 50's, Esther Pierre RN MUSE [facility] 09/21/2023 7:15 PM CDT Narrative MUSE [facility] - 09/21/2023 9:25 PM CDT Sinus Ck ??HR 50's, Esther Pierre RN Interface Provider EKG Performing Organization Address [facility] de Phone Number MUSE [facility] [address] [place] [address] * INPATIENT TELEMETRY MONITORING (09/21/2023 10:16 AM CDT) TELE P-R INTERVAL 0.18 MUSE [facility] TELE QRS DURATION 0.07 MUSE [facility] TELE R-R INTERVAL 1.26 MUSE [facility] TELE INTERPRETATION Sinus Ck Hina Prieto RN MUSE [facility] 09/21/2023 10:1 6 AM CDT Narrative MUSE [facility] - 09/21/2023 10:26 AM CDT Sinus Ck ??Hina Prieto RN Interface Provider EKG Performing Organization Address [facility] Co de Phone Number MUSE [facility] [address] [place] [address] * INPATIENT TELEMETRY MONITORING (09/20/2023 7:45 PM CDT) TELE P-R INTERVAL 0.18 MUSE GHP TELE QRS DURATION 0.06 MUSE [facility] TELE R-R INTERVAL 0.98 MUSE [facility] TELE INTERPRETATION Sinus Ck HR 40-50s, Laurence Phelan RN MUSE [facility] 09/20/2023 7:45 PM CDT Narrative MUSE [facility] - 09/21/2023 5:53 AM CDT Sinus Ck ??HR 40-50s, Laurence Phelan RN Interface Provider EKG Performing Organization Address [facility] de Phone Number MUSE [facility] [address] [place] [address] * INPATIENT TELEMETRY MONITORING (09/20/2023 9:15 AM CDT) TELE P-R INTERVAL 0.17 MUSE GHP TELE QRS DURATION 0.06 MUSE GHP TELE R-R INTERVAL 1.34 MUSE GHP TELE QT 0.52 MUSE [facility]HP TELE INTERPRETATION Sinus Ck Bhumi RN MUSE [facility] 09/20/2023 9:15 AM CDT Narrative MUSE [facility] - 09/20/2023 10:54 AM CDT Sinus Ck ??IRINA Tripathi Interface Provider EKG Performing Organization Address [facility] de Phone Number MUSE [facility] [address] [place] [address] * INPATIENT TELEMETRY MONITORING (09/19/2023 8:16 PM CDT) TELE P-R INTERVAL 0.15 MUSE G[facility] TELE QRS DURATION 0.06 MUSE GHP TELE R-R INTERVAL 1.08 MUSE [facility]HP TELE INTERPRETATION Sinus Ck HR 40-50s, Laurence Phelan RN MUSE [facility] 09/19/2023 8:16 PM CDT Narrative MUSE [facility] - 09/19/2023 11:47 PM CDT Sinus Ck ??HR 40-50s, Laurence Phelan RN Interface Provider EKG Performing Organization Address [facility] de Phone Number MUSE [facility] [address] [place] [address] * INPATIENT TELEMETRY MONITORING (09/19/2023 8:13 AM CDT) TELE P-R INTERVAL 0.19 MUSE GHP TELE QRS DURATION 0.05 MUSE GHP TELE R-R INTERVAL 1.34 MUSE GHP TELE QT 0.51 MUSE GHP TELE QTC 0.44 MUSE [facility]HP TELE INTERPRETATION Sinus Ck Amajenae B-S. RN MUSE [facility] 09/19/2023 8:13 AM CDT Narrative MUSE [facility] - 09/19/2023 11:35 AM CDT Sinus Ck ??Kathy Arevalo RN Interface Provider EKG Performing Organization Address [facility] Co de Phone Number MUSE [facility] [address] [place] [address] * INPATIENT TELEMETRY MONITORING (09/18/2023 9:16 AM CDT) TELE P-R INTERVAL 0.17 MUSE GHP TELE QRS DURATION 0.05 MUSE GHP TELE R-R INTERVAL 1.37 MUSE GHP TELE QT 0.49 MUSE GHP TELE INTERPRETATION Sinus Ck IDALIA AREVALO MUSE [facility] 09/18/2023 9:16 AM CDT Narrative MUSE [facility] - 09/18/2023 10:30 AM CDT Sinus Ck ??IDALIA AREVALO Interface Provider EKThu Performing Organization Address [facility] Co de Phone Number MUSE [facility] [address] [place] [address] * INPATIENT TELEMETRY MONITORING (09/18/2023 12:28 AM CDT) TELE P-R INTERVAL 0.20 MUSE GHP TELE QRS DURATION 0.07 MUSE GHP TELE R-R INTERVAL 1.43 MUSE GHP TELE QT 0.55 MUSE GHP TELE QTC 0.46 MUSE GHP TELE INTERPRETATION Sinus Ck Andrew Barney RN MUSE [facility] 09/18/2023 12:2 8 AM CDT Narrative MUSE [facility] - 09/18/2023 12:51 AM CDT Sinus Ck ??Andrew Barney RN Interface Provider EKG Performing Organization Address [facility] Co de Phone Number MUSE [facility] [address] [place] [address] * INPATIENT TELEMETRY MONITORING (09/17/2023 1:00 AM CDT) TELE P-R INTERVAL 0.18 MUSE GHP TELE QRS DURATION 0.08 MUSE GHP TELE R-R INTERVAL 1.23 MUSE GHP TELE QT 0.52 MUSE GHP TELE QTC 0.47 MUSE GHP TELE INTERPRETATION Sinus Ck Andrew Barney RN MUSE [facility] 09/17/2023 1:00 AM CDT Narrative MUSE [facility] - 09/17/2023 1:41 AM CDT Sinus Ck ??Andrew Barney RN Interface Provider EKG Performing Organization Address [facility] Co de Phone Number MUSE MARTINP [address] [place] [address] * INPATIENT TELEMETRY MONITORING (09/16/2023 3:26 PM CDT) [facility] TELE P-R INTERVAL 0.20 MUSE GHP TELE QRS DURATION 0.08 MUSE GHP TELE R-R INTERVAL 1.06 MUSE GHP TELE QT 0.42 MUSE GHP TELE INTERPRETATION Sinus Ck MUSE [facility] 09/16/2023 3:26 PM CDT Narrative MUSE [facility] - 09/16/2023 3:32 PM CDT Sinus Ck Interface Provider EKG Performing Organization Address [facility] de Phone Number MUSE MARTINP [address] [place] [address] documented in this encounter Visit Diagnoses Not on filedocumented in this encounter Administered Medications Inactive Administered Medications - up to 3 most recent administrations Medication Order MAR Action Action Date Dose Rate Site gadobutrol (GADAVIST) 1 MMOL/ML injection 7.5 mL 7.5 mL, Intravenous, ONCE (NON-SCHEDULED), Starting on Noy 09/15/23 at 0242, Until Noy 09/15/23 at 0244, For 1 dose Given 09/15/2023 2:44 AM CDT 7.5 mL Right Arm documented in this encounter Care Teams Reporting Manager Relationship Specialty Start Date End Date Svitlana Olmos MD [address] [place] [address] PCP - General 05/30/10 documented as of this encounter
--- OUTSIDE RECORDS SUMMARY | 2023-09-28 12:47 | XMS_ITS | Encounter Summary ---
Author Organization [facility] Address [address] [place] [address] Care Team Providers Care Physicians Assistant Name Role Phone Svitlana Olmos MD Primary Care Provider [phone] Encounter Details Date Type Department Care Team (Latest Contact Info) Description 09/14/2023 Orders Only HIM DEPARTMENT Provider, [place] [address] Social History Tobacco Use Types Packs/Day Years Used Date Smoking Tobacco: Every Day Cigarettes 1 40.2 Started: 02/28/1979; Last attempted to quit: 05/30/2019 Smokeless Tobacco: Never Comments:Smoking History Pac ks/day: quit 06/13/2023 Alcohol Use Standard Drinks/Week Comments No 0 (1 standard drink = 0.6 oz pur e alcohol) [facility] Utilities Answer Date Recorded In the past 12 months has [employer], gas, oil, or water [employer] threatened to shut off services in your [...] place to sleep or slept in a fdc (including now)? No 09/14/2023 Sex and Gender Information Value Date Recorded Sex Assigned at Not on file Gender Identity Not on file Sexual Orientation Not on file documented as of this encounter Plan of Treatment Upcoming Encounters Date Type Department Care Team (Late st Contact Info) Description 09/29/2023 8:40 AM CDT Appointment [facility] Neurosurgery/Ortho Spine [address] [facility]. [place] [address] Nurse Visit 10/03/2023 11:00 AM CDT Appointment [facility] [address] [address] Svitlana Olmos MD [address] [place] [address] 10/20/2023 10:30 AM CDT Appointment [facility] [address] [facility] [place] [address] 12/06/2023 10:20 AM CDT Appointment [facility] Neurosurgery/Ortho Spine [address] [facility] [place] [place] [address] Jg Munguia MD [address] [place] [address] 01/03/2024 11:20 AM LACTATION COORDINATOR Appointment [facility] [address] [place] [address] Latha Burns [facility] [address] [place] [address] documented as of this encounter Procedures Procedure Name Priority Date/Time Associated Diagnosis Comments EKG 09/14/2023 documented in this encounter Results * EKG (09/14/2023) Interface Provider EKG documented in this encounter Visit Diagnoses Not on filedocumented in this encounter Care Teams Physicians Assistant Relationship Specialty Start Date End Date Svitlana Olmos MD [address] [place] [address] PCP - General 05/30/10 documented as of this encounter
--- OUTSIDE RECORDS SUMMARY | 2023-09-28 12:48 | XMS_ITS | Encounter Summary ---
Author Organization [facility] Address [address] [place] [id number] Care Team Providers Care Assistant Chief Engineer Name Role Phone Svitlana Olmos MD Primary Care Provider [phone] Reason for Referral * Therapies (Routine) - New Request Specialty Diagnoses / Procedures Referred By Martir seay Referred To Contact Diagnoses Right arm numbness Andrei Landeros APRN, [employer] [address] [facility] [place] [address] Referral ID Status Reason Start Date Expiration Date V isits Requested Visits Authorized [id number] New Request 08/25/2023 08/24/2024 1 1 Scheduling Instructions Your clinician has recommended an appointment with Rehabilitation Services. You can quickly make your appointment online at [employer]/schedule. You can also call [phone] for help scheduling your appointment. We suggest you call your health insurance company about your coverage and benefits for this appointment. Question Answer Appointment Urgency? Non-Urgent Eval and Treat Eval and Treat Modalities Iontophoresis - Dexamethasone OK Splint? No Comments Please treat for right arm numbness (median and ulnar) s/p Right rotator cuff surgery. Bracing may include wrist splint and elbow anterior stay. Reason for Visit * Reason Comments CONSULT Right hand Encounter Details Date Type Department Care Team (Late st Contact Info) Description 08/25/2023 12:40 PM CDT Office Visit [facility] [place] [address] [place] [address] Henry Odom MD [address] [facility] [place] [address] Andrei Landeros APRN, PRESIDENT[employer] [address] [facility] [place] [address] Right arm numbness (Primary Dx) Social History Tobacco Use Types Packs/Day Years Used Date Smoking Tobacco: Every Day Cigarettes 1 40.2 Started: 02/28/1979; Last attempted to quit: 05/30/2019 Smokeless Tobacco: Never Comments:Smoking History Pac ks/day: quit 06/13/2023 Alcohol Use Standard Drinks/Week Comments No 0 (1 standard drink = 0.6 oz pur e alcohol) PHQ-2 Answer Date Recorded PHQ-2 Score 0 06/09/2023 Sex and Gender Information Value Date Recorded Sex Assigned at Not on file Gender Identity Not on file Sexual Orientation Not on file documented as of this encounter Patient Instructions * Patient Instructions* Andrei Landeros, DELMY, PRESIDENT[employer] - 08/25/2023 12:40 PM CDT Thank you for Choosing [facility] for your health care visit today. Andrei Landeros DNP Hand & Upper Extremity Specialist Medication Requests: Prescriptions are not filled on weekends or on weekdays after 3:00 PM. For all medication refills: Request a refill using [employer] or contact your pharmacy. What is Know Your Cost? Know Your Cost is a service for patients and patient/members to call and receive personalized cost information and estimates across our care group. The phone number is (COST) Tuesday - Tuesday 8 AM to 5 PM Advanced Imaging Scheduling: To schedule an MRI, Ultrasound, or Image guided injection at [facility] please call [phone]. To schedule an MRI or CT at a [facility] location please call [phone]. [facility] Workers' Compensation [address] [place] [address] (Phone) Email: [email or web address] Release of Information: Radiology/Imaging [address] [place] [address] (Phone) Health Information Management [address] [place] [address] (Phone) [employer] documented in this encounter Progress Notes * Andrei Landeros APRN, CNP - 08/25/2023 12:40 PM CDT [facility] Orthopaedic Surgery Consultation 08/25/2023 Date of Service: 08/25/2023 Date of : 1965 Chief Concern: Right hand numbness. Hand Dominance: Right. 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 History of Present Illness: Ruthann Rosas is a 58 y.o. female who presents for initial evaluation. She had right rotator cuff surgery with open biceps tenodesis with Dr. Harkins in May 2023. She has had some edema concerns, but being able to get out of her sling has helped tremendously. However she states that she has been getting some numbness and tingling to her hand particularly thumb, index, long, ring finger andit was here to discuss this. She also mentioned that her hand and her fingers feel stiff and sore in the morning that do get better. Then she also states at night she was getting some discomfort to the dorsal aspect of her wrist. Allergies: Patient has no known allergies. Current Medications: The patient has a current medication list which includes the following prescription(s): acetaminophen, acyclovir, ascorbic acid, calcium carbonate, cholecalciferol, gabapentin, hydroxyzine hcl, ibuprofen, multiple vitamin, garlic, fish oil, ondansetron, oxycodone, senna, trazodone, triamcinolone jayce tonide, and varenicline. 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 Past Surgical History: The patient has no past surgical history on file. Family History: The patient's family history includes Cancer in her mother; Cancer, Breast in her maternal grandmother; Cancer, Ovary in her paternal grandmother; Dementia in her mother. There is no history of Cancer, Colon, Diethylstilbestrol Exposure, or Cancer, Endometrial. Social History: Social History Occupational History Occupation: RN Tobacco [...] No Sexual activity: Not Currently control/protection: None The General Medical History Form dated 08/25/2023 was updated and reviewed with the patient; this islocated in [employer] in [employer]. Review of Systems: A complete 15-point review is negative with the exception of what is noted in the HPI as well as onthe intake form. Physical Exam: General: The patient is in no acute distress. Neuro: Answers questions appropriately. Alert and oriented x 3. Skin: Cool to touch. No erythema, ecchymosis, or lesions. No edema present. Musculo: Sensations intact with light touch to the digits distally. Cap refill <2 seconds. 5/5 strength in abductor pollicis brevis, 1st dorsal interosseus muscle, and abductor digiti minimi. Static two-point discrimination is 5/5/8/6/8. Negative elbow flexion test. Mildly positive Tinel's testing at the right elbow. Negative on the left. Questionable positive compression test at the wrist crease in questionable positive Tinel's at the wrist crease. Assessment: Diagnosis and Associated Orders ICD-10-CM 1. Right arm numbness R20.0 Hand Therapy Consult Plan: During this visit I explained to Ruthann that I am hopeful that any sort of numbness and tinglingdistally simply has a do with the edema and immobilization. States that she feels like she was making some progress. She is in physical therapy for her shoulder. I would like to add in hand therapy for right upper extremity nerve glides with constraints of the shoulder to be taken account of. As well as night splinting of the elbow and wrist to help with some paresthesias. Now follow up with myself as PRN. If she has not getting the results she desires from hand therapy then she will follow up and I can discuss her care going forward with further exam/testing. All questions were addressed. All parties agree with and understand plan of care. Patient appeared pleased with the visit. This note was created using voice recognition software and may contain typographical errors. documented in this encounter Plan of Treatment Upcoming Encounters Date Type Department Care Team (Late st Contact Info) Description 09/29/2023 8:40 AM CDT Appointment [facility] Neurosurgery/Ortho Spine [address] [place] [address] Nurse Visit 10/03/2023 11:00 AM CDT Appointment [facility] Medicine [facility] [place] [address] Svitlana Olmos MD [facility] [place] [address] 10/20/2023 10:30 AM CDT Appointment [facility] Neurosurgery/Ortho Spine [address] [place] [address] 12/06/2023 10:20 AM CDT Appointment [facility] Neurosurgery/Ortho Spine [address] [place] [address] Jg Munguia MD [address] [place] [address] 01/03/2024 11:20 AM QUALITY CONTROL CHEMIST Appointment [address] [place] [address] [facility] [address] [place], [place] [phone] Scheduled Referrals Name Type Priority Associated Diagnoses Orde r Schedule Hand Therapy Consult Referral Routine Right arm numbness Ordered: 08/25/2023 documented as of this encounter Visit Diagnoses Diagnosis Right arm numbness- Primary Disturbance of skin sensation documented in this encounter Care Teams Assistant Chief Engineer Relationship Specialty Start Date End Date Svitlana Olmos MD [address] [place] [address] PCP - General 05/30/10 documented as of this encounter
--- OUTSIDE RECORDS SUMMARY | 2023-09-28 12:48 | XMS_ITS | Encounter Summary ---
Author Organization [facility] Address [address] [place] [address] Care Team Providers Care Car Porter Name Role Phone Svitlana Olmos MD Primary Care Provider [phone] Reason for Visit * Reason Comments SHOULDER PAIN Encounter Details Date Type Department Care Team (Late st Contact Info) Description 09/06/2023 9:50 AM CDT Office Visit [facility] [address] [place], [place] [address] Allison Harkins MD [address] [place] [address] S/P rotator cuff repair (Primary Dx) Social History Tobacco Use Types Packs/Day Years Used Date Smoking Tobacco: Every Day Cigarettes 1 40.2 Started: 02/28/1979; Last attempted to quit: 05/30/2019 Smokeless Tobacco: Never Comments:Smoking History Pac ks/day: quit 06/13/2023 Alcohol Use Standard Drinks/Week Comments No 0 (1 standard drink = 0.6 oz pur e alcohol) [facility] Utilities Answer Date Recorded In the [...] place to sleep or slept in a detention (including now)? No 09/14/2023 Sex and Gender Information Value Date Recorded Sex Assigned at Not on file Gender Identity Not on file Sexual Orientation Not on file documented as of this encounter Progress Notes * Allison Harkins MD - 09/06/2023 9:50 AM CDT CHIEF CONCERN: Status post right arthroscopic rotator cuff repair and open biceps tenodesis DATE OF SURGERY: 06/16/23 HISTORY OF PRESENT ILLNESS: Patient is 2.5 months s/p shoulder surgery above. She notes that the swelling she was having which was fluctuating is now not as sensitive to gravity. She has seen hand therapy and was given a sleeve and brace. She has her Neurosurgery for meningioma on 09/13 PHYSICAL EXAM: Adult in no acute distress Respirations even and unlabored Focused upper extremity exam: Incisions well healed. Distally CMS intact with full EPL,FPL,and intrinsics. Today's exam notes no noticeable asymmetry of the BUEs. No notable edema in the right hand. Right shoulder AROM is FE to 115 and ER to 25. IMAGING: None new ASSESSMENT: 3 months status post shoulder surgery above Known meningioma PLAN: We discussed ongoing PT/Hand therapy to address both her edema and her right shoulder rehab. It does seem she is making progress. She certainly has a significant upcoming event with her Neurosurgery and she will try to continue her shoulder/hand rehab throughout. She will return in 2-3 months for her RUE but as previously noted may adjust depending on her Neurosurgical recovery. Allison Harkins MD documented in this encounter Plan of Treatment Upcoming Encounters Date Type Department Care Team (Late st Contact Info) Description 09/29/2023 8:40 AM CDT Appointment [facility] Neurosurgery/Ortho Spine [address] [facility]. [place] [address] Nurse Visit 10/03/2023 11:00 AM CDT Appointment [facility] [address] [place] [address] [place] [address] Svitlana Olmos MD [address] [place] [address] [place] [address] 10/20/2023 10:30 AM CDT Appointment [facility] Neurosurgery/Ortho Spine [address] [place] [address] 12/06/2023 10:20 AM CDT Appointment [facility] Neurosurgery/Ortho Spine [address] [place] [address] Jg Munguia MD [address] [place] [address] 01/03/2024 11:20 AM RESIDENTIAL COORDINATOR Appointment [facility] [place] [address] [place] [address] Latha Burns, [facility] [address] [place], [place] [id number] documented as of this encounter Visit Diagnoses Diagnosis S/P rotator cuff repair- Primary Other postprocedural status documented in this encounter Care Teams Car Porter Relationship Specialty Start Date End Date Svitlana Olmos MD [address] [place] [address] PCP - General 05/30/10 documented as of this encounter
--- OUTSIDE RECORDS SUMMARY | 2023-09-28 12:48 | XMS_ITS | Encounter Summary ---
Author Organization [facility] Address [address] [place] [address] Care Team Providers Care After School Tutor Name Role Phone Svitlana Olmos MD Primary Care Provider [phone] Reason for Visit * Auth/Cert (Routine) Specialty Diagnoses / Procedures Referred By Martir t Referred To Contact Diagnoses Meningioma ([facility]) . Procedures Stealth guided Medial Eyebrow Craniotomy for Meningioma Resection. IMAGE GUIDANCE ADD ON NEURO (*) Referral ID Status Reason Start Date Expiration Date Visits Re quested Visits Authorized [id number] 1 1 Encounter Details Date Type Department Care Team (Late st Contact Info) Description 09/14/2023 7:36 AM CDT Anesthesia Event RH Operating Room [address] [place] [address] Yanique Flores MD [address] [place] [address] Kylah Butterfield APRN, CRNA [address] [place] [address] Anesthesia Record Procedure Summary Procedure Name Responsible Anesthesiologist Anesthesia Start Time Anesthesia Stop Time Stealth guided Medial Eyebrow Craniotomy for Meningioma Resection. (Right) Yanique Flores MD 09/14/23 0736 09/14/23 1302 Events Date Time Event Comment 09/14/2023 0736 An Start 0747 An Start Data 0755 An Induction 0800 An Intubation 0901 Quick Note Incision 0946 An Labs Glucose 144 1252 An Extubation Purposeful mov ement with spontaneous respirations and adequate air exchange. Suctioned and ETT removed. Transferred with oxygen to recovery. 1256 an stop data 1302 Care Handoff Note I discusse d with the receiving nurse and we: 1) Identified the patient, rosario family member(s) or patient surrogate 2) Identified the responsible practitioner 3) Reviewed the pertinent medical history 4) Discussed the surgical/procedure course 5) Reviewed intra-op anesthesia management and issues during anesthesia 6) Set expectations for the post-procedure period 7) Allowed opportunity for questions and acknowledgement of understanding of report Electronically signed by Kylah Butterfield APRN, TRAFFIC LIEUTENANT 1302 An Stop Care transferre d. Meds Name Total phenylephrine (VAZCULEP) 50, 000 mcg in sodium chloride 0.9 % 500 mL (100 mcg/mL) infusion 461.7 mcg midazolam 2 mg/2 mL injection (aka VERSE D) 2 mg fentaNYL injection (aka SUBLIMAZE) 4 mL propofol 10 mg/mL for procedural sedatio n (aka diPRIvan) 250 mg lidocaine 2% PF injection aka (XYLOCAINE ) 50 mg rocuronium injection (aka ZEMURON) 120 m g phenylephrine-NaCl 0.9% 100 mcg/mL syrin ge (aka DANIEL-SYNEPHRINE) 400 mcg cefTRIAXone (ROCEPHIN) IV 1 g 1 g mannitol 20% infusion 37.2 g levETIRAcetam (KEPPRA) 500 mg/5 mL injec tion 1,500 mg dexAMETHasone (DECADRON) 4 mg/mL injecti on 10 mg vancomycin (VANCOCIN) injection 1 g 1 g ePHEDrine 5mg/ml in 0.9% sodium chloride syringe 15 mg sugammadex injection 200mg/2mL (BRIDION) 180 mg ondansetron injection (ZOFRAN) 4 mg NaCl 0.9% infusion 46.67 mL lactated ringers infusion 2,000 mL * Agents Name 02 Delivery Device O2 N2O Air Sevoflurane () * Blood No blood administrations on file. Lines, Drains, and Airways Type Details Placement Removal Peripheral IV Placement Date: 09/14/23; Placement Time: 06; Pre-existing: No; Inserted by?: RN; Size (Gauge): 18 G; Orientation: Right; Site Prep: Alcohol; Local Anesthetic: None; Insertion attempts: 1; Blood draw with insertion?: yes; Patient Tolerance: Tolerated well 09/14/[address] RN Peripheral IV Placement Date: 09/14/23; Placement Time: 08; Pre-existing: No; Inserted by?: TRAFFIC LIEUTENANT; Size (Gauge): 18 G; Orientation: Left; Site Prep: Alcohol; Local Anesthetic: None; Insertion attempts: 1; Blood draw with insertion?: no; Patient Tolerance: Tolerated well 09/14/23 08 by Kylah Butterfield APRN, CRNA Incision/Surgical Site 09/14/23; 899; F jayce, Forehead 09/14/23899 by Eunice Pope RN ETT Placement Date: 09/14/23; Placement Time: 08; Placed By: ISACC; Induction Type: Pre-O2, IV; Masking: Easy; ETT Type: ETT; Orientation: Left; Size (mm): 7.0; Depth Secured (cm): 21 cm; Cuffed: Cuffed; Intubation Method: DL; Cormack_Lehane Glottic Grade: Grade 1; Glottic View: Cords Open, Cords Clear; Blade: MAC; Blade Size: 3; Difficulty: Easy, Atraumatic; Adjunct Equipment: Stylet; Placement Verification: BBSE, Positive EtCO2, capnometry, auscultation; Teeth and Lips Unchanged: Unchanged; Emergence: Following commands, Opening eyes, Spontaneous respirations, Adequate air exchange; Suctioned: Oropharnyx; Removal Date: 09/14/23; Removal Time: 1251; Extubation By: ISACC; Transferred with Oxygen: Yes 09/14/23 08 by Kylah Butterfield APRN, CRNA 09/14/23 1252 by Kylah Butterfield APRN, CRNA Indwelling Urethral Catheter 09/14/23; 08; No; Eunice Pope; 1 person; Indwelling Catheter With Core Temp Probe; 16 Fr.; 1 09/14/23 0805 by Eunice Pope RN 09/14/23 1233 by Eunice Pope RN Arterial Line Placement Date: 09/14/23; Placement Time: 08; Pre-existing: No; Inserted By?: Anesthesiologist; Antimicrobial?: Line & Patch; Size: 20 gauge; Orientation: Left; Location: Radial; Site Prep: Chlorhexidine; Local Anesthetic: None; Insertion attempts: 1; Securement Method: Taped; Patient Tolerance: Tolerated well; Met Standard Sterile Barrier Technique: Met Standard Sterile Barrier Technique; Removal Date: 09/15/23; Removal Time: 1045; Removal Reason: Per Order 09/14/23 0805 by Kylah Butterfield APRN, TRAFFIC LIEUTENANT 09/15/23 1045 by Kimberly Delcid RN Peripheral IV Placement Date: 09/14/23; Placement Time: 0806; Removal Date: 09/14/23; Removal Time: 1257; Removal Reason: Other (Comment) (not in place) 09/14/23 0806 by Kylah Butterfield APRN, TRAFFIC LIEUTENANT 09/14/23 1257 by Nicole Fox RN documented in this encounter Social History Tobacco Use Types Packs/Day Years Used Date Smoking Tobacco: Every Day Cigarettes 1 40.2 Started: 02/28/1979; Last attempted to quit: 05/30/2019 Smokeless Tobacco: Never Comments:Smoking History Pac ks/day: quit 06/13/2023 Alcohol Use Standard Drinks/Week Comments No 0 (1 standard drink = 0.6 oz pur e alcohol) [facility] [employer] Answer Date Recorded In the past 12 months has [employer], gas, oil, or water Smart Panel threatened to shut off services in your [...] place to sleep or slept in a half-way (including now)? No 09/14/2023 Sex and Gender Information Value Date Recorded Sex Assigned at Not on file Gender Identity Not on file Sexual Orientation Not on file documented as of this encounter Miscellaneous Notes * Anesthesia Postprocedure Evaluation - Yanique Flores MD - 09/14/2023 2:31 PM CDT [facility] Anesthesia Post-op Note Patient: Ruthann Rosas Post-Op Diagnosis: Pre-Op Diagnosis Codes: * Meningioma ([facility]) [D32.9] Procedure Performed: Procedure(s): Right - Stealth guided Medial Eyebrow Craniotomy for Meningioma Resection. - Wound Class: 1 CLEAN IMAGE GUIDANCE ADD ON NEURO (*) Anesthesia Type: General Post-op vital signs: Vitals Value Taken Time BP 141/85 09/14/23 1330 Temp 36 09/14/23 1431 Pulse 98 09/14/23 1431 Resp 20 09/14/23 1431 SpO2 98 % 09/14/23 1431 Vitals shown include unfiled device data. Pain Score: Preferred Pain Scale: CPOT (Critical-Care Pain Observation Tool) (0- 10) Pain Rating: Rest: 6 (0-10) Pain Rating: Activity: 2 Post-op assessment: Patient location: PACU Airway Status: Patent Cardiovascular function: Satisfactory Hydration status: Satisfactory PONV: None Level of Consciousness: Awake Fully Participates Postop Assessment: Patient tolerated procedure well. Electronically signed by: Yanique Flores MD 09/14/2023 2:31 PM * Anesthesia Procedure Notes - Yanique Flores MD - 09/14/2023 2:31 PM CDT Associated Order(s): A-Line A-Line Performed by: Yanique Flores MD Authorizing/Supervising provider: Yanique Flores MD Patient Location: OR Indication: continuous blood pressure monitoring Written or Verbal consent obtained: informed consent obtained Inserted by: Anesthesiologist Number of attempts: 1 Procedure Detail: Catheter Type: Arrow Catheter Size: 20 gauge Catheter Length: 12 cm Skin Prep: Chloraprep Ultrasound Guided?: No Laterality: Left Site: Radial artery Line Secured: Suture, tape and Tegaderm Antimicrobial dressing applied: Yes Maximal sterile barriers: all elements of maximal sterile barrier technique followed.. Events: patient tolerated procedure well with no complications Comments: Arterial line placed after anesthesia start but prior to induction of anesthesia: No * Anesthesia Preprocedure Evaluation - Yanique Flores MD - 09/14/2023 6:47 AM CDT [facility] Anesthesia Pre-op Evaluation Procedure: Stealth guided Medial Eyebrow Craniotomy for Meningioma Resection., Right IMAGE GUIDANCE ADD ON NEURO (*), N/A HPI: 58 y.o. old female. Pre-Op Diagnosis Codes: * Meningioma ([facility]) [D32.9] Last Fluid Intake Time: 2300 Last Fluid Intake Date: 09/13/23 Last Food Intake Date: 09/13/23 Last Food Intake Time: 1900 No Known Allergies Past Medical History: Diagnosis Date Dermatitis Eyelid #*LW 3 01/28/2006 Multiparity Grand w Preg #*LW 2 08/27/2003 Tobacco Abuse #*LW 1 08/04/2002 Varicella Patient Active Problem List Diagnosis Recurrent cold sores Endometrial polyp Chronic insomnia FHx: colonic polyps Traumatic complete tear of right rotator cuff Meningioma ([facility]) Past Surgical History: Procedure Laterality Date ROTATOR CUFF REPAIR Right 05/2023 Outpatient Medications as of 09/14/2023 Medication Sig acetaminophen (TYLENOL) 325 MG tablet Take 1-2 Tablets (325-650 mg) by mouth every 6 hours as needed for Pain. acyclovir (ZOVIRAX) 400 MG tablet Take 1 Tablet (400 mg) by mouth three times a day as needed. ascorbic acid (AKA VITAMIN C) 500 MG tablet Take 2 Tablets (1,000 mg) by mouth daily. Calcium Carbonate (CALCIUM 500 OR) Cholecalciferol (VITAMIN D-3 OR) ibuprofen (MOTRIN) 600 MG tablet Take 1 Tablet (600 mg) by mouth every 6 hours as needed for Pain. Multiple Vitamins-Minerals (MULTIVITAMIN OR) Take 1 tablet by mouth daily (every 24 hours). ODOR FREE GARLIC OR Take by mouth daily (every 24 hours). omega-3 fatty acids (FISH OIL) 1000 MG capsule Indications: PN: senna (SENNA LAXATIVE) 8.6 MG tablet Take 1 Tablet by mouth daily. triamcinolone acetonide (KENALOG) 0.1 % ointment Apply topically two times a day. Use on hand dermatits, taper to once a day as improves. Not for use on normal skin, face, or skin folds. varenicline (CHANTIX) 1 MG tablet Take 1 Tablet (1 mg) by mouth two times a day. Take after eating with a full glass of water.NOTE:Dispense as maintenance for refills only. Facility-Administered Medications as of 09/14/2023 Medication Dose Route Frequency [COMPLETED] acetaminophen (TYLENOL) tablet 1,000 mg 1,000 mg Oral Once acetaminophen (TYLENOL) tablet 650 mg 650 mg Oral Q6H PRN [COMPLETED] ceFAZolin (ANCEF) 2 g in sodium chloride 0.9 % 50 mL IVPB 2 g Intravenous Once dexAMETHasone (DECADRON) injection 10 mg 10 mg Intravenous Once (Non-Scheduled) glucose (GLUTOSE) 40 % oral gel 15 g of glucose 15 g of glucose Oral Q15MIN PRN Or dextrose (D50) IVPB 25 g 25 g Intravenous Q15MIN PRN Or glucagon rDNA (diagnostic) (GLUCAGEN) injection 1 mg 1 mg Intramuscular Q15MIN PRN HYDROmorphone (DILAUDID) injection 0.2-0.4 mg 0.2-0.4 mg Intravenous Q2H PRN lactated ringers infusion Intravenous Continuous lactated ringers infusion 30 mL/hr Intravenous Continuous lidocaine (UROJET) 2 % gel prefilled syringe Urethral PRN with procedures lidocaine (UROJET) 2 % gel prefilled syringe Urethral PRN with procedures lidocaine PF (XYLOCAINE) 1 % injection 1 mL 1 mL Intradermal Pre-Procedure naloxone (NARCAN) injection 0.2 mg 0.2 mg Intravenous PRN per Parameters oxyCODONE (ROXICODONE) immediate release tablet 5-10 mg 5-10 mg Oral Q4H PRN traZODone (DESYREL) tablet 200 mg 200 mg Oral At Bedtime vancomycin (VANCOCIN) injection 1 g 1 g Intravenous Once (Non-Scheduled) Labs: Lab Results Component Value Date/Time SODIUM 140 09/14/2023 05:52 AM K 4.2 09/14/2023 05:52 AM CHLORIDE 109 09/14/2023 05:52 AM BUN 12 09/14/2023 05:52 AM CREATININE 0.64 09/14/2023 05:52 AM GLUCOSE 104 (H) 09/14/2023 05:52 AM Lab Results Component Value Date/Time WBC 6.4 09/14/2023 05:52 AM HGB 13.2 09/14/2023 05:52 AM HCT 42.2 09/14/2023 05:52 AM PLTS 243 09/14/2023 05:52 AM INR (no units) Date Value 09/14/2023 1.0 Blood Bank: N/O BB ANTIBODY SCREEN (no units) Date Value 02/11/2004 NEG EKG: No results found for this or any previous visit. Physical Exam: BP 122/74 Pulse (!) 55 Temp 97 ??F (36.1 ??C) (Tympanic) Resp 16 Ht 5' 5 (1.651 m) Wt 74.4 kg (164 lb) SpO2 95% BMI 27.29 kg/m?? Assessment/Plan: Review of Systems Patient does not have GERD. Patient is a current smoker. The patient denies alcohol use. Patient denies any recent URI. History of PONV: No. History of motion sickness: No. Patient denies any personal or family history of anesthesia complications. NPO Status: Acceptable. Exam Mental Status: Alert and oriented. Mallampati score: II (Two). Mouth opening: Normal Thyromental Distance: > 3 finger breadths and Normal Neck Extension: Full Neck Circumference > 40 cm?: No Current airway assessment:Normal Dentition: . Denies any loose teeth. Cardiac Exam: Regular rate and rhythm. Respiratory Exam: Breath sounds clear to auscultation Assessment ASA Status: 2 . Plan Anesthesia type: General and ETT Induction: Intravenous Maintenance: Balanced Postoperative pain management: Plan for postoperative opioid use PONV Risk Score Adult: 2 PONV Prophylaxis (planned): Ondansetron and Decadron Anesthetic plan, risks, benefits and alternatives discussed with the patient who agrees to the anesthesia treatment plan. Possibility of blood products discussed. Additional equipment needed: 2nd IV and Arterial line The patient and/or their district representative were notified about the potential risks of damage to the lips, teeth, dental devices, mouth and airway. H&P Reviewed and Patient examined, no change observed IV access Antibiotics per surgery Electronically signed by: Yanique Flores MD 09/14/2023 6:47 AM documented in this encounter Plan of Treatment Upcoming Encounters Date Type Department Care Team (Late st Contact Info) Description 09/29/2023 8:40 AM CDT Appointment [facility] Neurosurgery/Ortho Spine [address] [facility]. [place] [id number] Nurse Visit 10/03/2023 11:00 AM CDT Appointment [facility] [address] [place], [place] [address]J[place] [address] Svitlana Olmos MD [facility] [place] [address] 10/20/2023 10:30 AM CDT Appointment [facility] Neurosurgery/Ortho Spine [address] [place] [address] 12/06/2023 10:20 AM CDT Appointment [facility] Neurosurgery/Ortho Spine [address] 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 Appointment [facility], [facility] Dental [facility] [address] [place], [place] [id number] Latha Burns, [facility] [address] [place], [place] [id number] documented as of this encounter Procedures Procedure Name Priority Date/Time Associated Diagnosis Comments A-LINE Routine 09/14/2023 2:31 PM CDT documented in this encounter Results * A-LINE (09/14/2023 2:31 PM CDT) Narrative [...] Yanique Flores MD EPICCARE PROCEDURES EXTERNAL RESULTS documented in this encounter Visit Diagnoses Not on filedocumented in this encounter Administered Medications Inactive Administered Medications - up to 3 most recent administrations Medication Order MAR Action Action Date Dose Rate Site cefTRIAXone (ROCEPHIN) injection Intravenous, Starting on Tue09/14/23 at 0802 Given 09/14/2023 8:02 AM CDT 1 g dexAMETHasone (DECADRON) injection Intravenous, Starting on Tue09/14/23 at 0823, Until Tue09/14/23 at 1302 Given 09/14/2023 8:23 AM CDT 10 mg ePHEDrine 5 mg/mL injection Intravenous, Starting on Tue09/14/23 at 0846, Until Tue09/14/23 at 1302 Given 09/14/2023 8:54 AM CDT 5 mg Given 09/14/2023 8:49 AM CDT 5 mg Given 09/14/2023 8:46 AM CDT 5 mg fentaNYL (SUBLIMAZE) injection Intravenous, Starting on Tue09/14/23 at 0900, Until Tue09/14/23 at 1302 Given 09/14/2023 11:53 AM CDT 1 mL Given 09/14/2023 9:55 AM CDT 1 mL Given 09/14/2023 9:00 AM CDT 1 mL lactated ringers infusion 30 mL/hr, Intravenous, CONTINUOUS, Starting on Tue09/14/23 at 0530, Pre-op Restarted 09/14/2023 7:36 AM CDT Started 09/14/2023 6:06 AM CDT 30 mL/hr 30 mL/hr levETIRAcetam (KEPPRA) injection Intravenous, Starting on Tue09/14/23 at 0802, Until Tue09/14/23 at 1302 Given 09/14/2023 8:02 AM CDT 1,500 mg lidocaine PF (XYLOCAINE) 2 % injection Intravenous, Starting on Tue09/14/23 at 0755, Until Tue09/14/23 at 1302 Given 09/14/2023 7:55 AM CDT 50 mg mannitol (OSMITROL) 20 % infusion Intravenous, Starting on Tue09/14/23 at 0802, Until Tue09/14/23 at 1302 Given 09/14/2023 8:02 AM CDT 37.2 g midazolam (VERSED) injection Intravenous, Starting on Tue09/14/23 at 0738, Until Tue09/14/23 at 1302 Given 09/14/2023 7:38 AM CDT 2 mg ondansetron (ZOFRAN) injection Intravenous, Starting on Tue09/14/23 at 1209, Until Tue09/14/23 at 1302 Given 09/14/2023 12:09 PM CDT 4 mg phenylephrine (VAZCULEP) 50,000 mcg in sodium chloride 0.9 % 500 mL (100 mcg/mL) infusion Intravenous, Starting on Tue09/14/23 at 0905 Started 09/14/2023 9:05 AM CDT 0.3 mcg/kg/min 10.26 mL/hr phenylephrine-NaCl 0.9% (DANIEL-SYNEPHRINE) injection Intravenous, Starting on Tue09/14/23 at 0843, Until Tue09/14/23 at 1302 Given 09/14/2023 8:54 AM CDT 100 mcg Given 09/14/2023 8:50 AM CDT 100 mcg Given 09/14/2023 8:47 AM CDT 100 mcg propofol (DIPRIVAN) 10 mg/mL injection Intravenous, Starting on Tue09/14/23 at 0755, Until Tue09/14/23 at 1302 Given 09/14/2023 10:14 AM CDT 50 mg Given 09/14/2023 7:55 AM CDT 200 mg rocuronium (ZEMURON) injection Intravenous, Starting on Tue09/14/23 at 0902, Until Tue09/14/23 at 1302 Given 09/14/2023 11:00 AM CDT 20 mg Given 09/14/2023 10:01 AM CDT 20 mg Given 09/14/2023 9:01 AM CDT 30 mg sodium chloride 0.9% infusion Intravenous, Starting on Tue09/14/23 at 0905 Started 09/14/2023 9:05 AM CDT 50 mL/hr sugammadex (BRIDION) injection Intravenous, Starting on Tue09/14/23 at 1240, Until Tue09/14/23 at 1302 Given 09/14/2023 12:40 PM CDT 180 mg vancomycin (VANCOCIN) injection 1 g 1 g, Intravenous, ONCE (NON-SCHEDULED), Starting on Tue09/14/23 at 0510, For 1 dose, For patient weight less than 80 kg PRE-OP ANTIBIOTIC, Indications: Surgical Prophylaxis, Pre-op Given 09/14/2023 7:38 AM CDT 1 g documented in this encounter Care Teams After School Tutor Relationship Specialty Start Date End Date Svitlana Olmos MD [address] [place] [address] PCP - General 05/30/10 documented as of this encounter
--- OUTSIDE RECORDS SUMMARY | 2023-09-28 12:48 | XMS_ITS | Encounter Summary ---
Author Organization [facility] Address [address] [place] [address] Care Team Providers Care Educational Assistant Name Role Phone Svitlana Olmos MD Primary Care Provider [phone] Reason for Visit * Reason Comments Forms [facility] Physici an's statement Encounter Details Date Type Department Care Team (Late st Contact Info) Description 08/31/2023 Telephone [facility] Neurosurgery/Ortho Spine [address] [facility] [place] [address] Jg Munguia MD [address] [place] [address] Forms ([facility] Physician's statement) Social History Tobacco Use Types Packs/Day Years [...] as of this encounter Nursing Notes * Darby Otto - 09/06/2023 2:58 PM CDT Received from ID to do bin. Faxed to [facility] at . Confirmation received. Form sent to scanning. Thanks. Darby Otto 09/06/2023, 2:58 PM * Bertha Ortiz RN - 09/06/2023 1:45 PM CDT Forms signed by provider and placed in ID to-do bin to be faxed. Bertha Ortiz RN 09/06/2023,1:45 PM * Bertha Ortiz RN - 08/31/2023 11:05 AM CDT Forms have been printed, filled out, and placed in provider folder to be signed. Bertha Ortiz RN 08/31/2023, 11:05 AM * Darby Otto - 08/31/2023 10:45 AM CDT Received fax from patient. [facility] Attending Physician's Statement. Signature requested. Fax can be found in provider right fax folder. Darby Otto 08/31/2023, 10:46 AM documented in this encounter Plan of Treatment Upcoming Encounters Date Type Department Care Team (Late st Contact Info) Description 09/29/2023 8:40 AM CDT Appointment [facility] Neurosurgery/Ortho Spine [address] [facility]. [place] [address] Nurse Visit 10/03/2023 11:00 AM CDT Appointment [place] [address] [place] [address] Svitlana Olmos MD [address] [place] [address] 10/20/2023 10:30 AM CDT Appointment [facility] Neurosurgery/Ortho Spine [address] [facility] [place] [address] 12/06/2023 10:20 AM CDT Appointment [facility] Neurosurgery/Ortho Spine [address] 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
--- OUTSIDE RECORDS SUMMARY | 2023-09-28 12:48 | XMS_ITS | Encounter Summary ---
Author Organization [facility] Address [address] [place] [address] Care Team Providers Care Quirk Sander Name Role Phone Svitlana Olmos MD Primary Care Provider [phone] Reason for Visit * Auth/Cert (Routine) Specialty Diagnoses / Procedures Referred By Martir t Referred To Contact Diagnoses Meningioma (C) . Procedures Stealth guided Medial Eyebrow Craniotomy for Meningioma Resection. IMAGE GUIDANCE ADD ON NEURO (*) Referral ID Status Reason Start Date Expiration Date Visits Re quested Visits Authorized [id number] 1 1 Encounter Details Date Type Department Care Team (Late st Contact Info) Description 09/14/2023 7:15 AM CDT - 09/14/2023 11:15 AM CDT Surgery Operating Room [address] [place] [address] Jg Munguia MD [address] [place] [address] Stealth guided Medial Eyebrow Craniotomy for Meningioma Resection. Social History Tobacco Use Types Packs/Day Years Used Date Smoking Tobacco: Every Day Cigarettes 1 40.2 Started: 02/28/1979; Last attempted to quit: 05/30/2019 Smokeless Tobacco: Never Comments:Smoking History Pac ks/day: quit 06/13/2023 Alcohol Use Standard Drinks/Week Comments No 0 (1 standard drink = 0.6 oz pur e alcohol) [facility] Utilities Answer Date Recorded In [...] place to sleep or slept in a custodial (including now)? No 09/14/2023 Sex and Gender Information Value Date Recorded Sex Assigned at Not on file Gender Identity Not on file Sexual Orientation Not on file documented as of this encounter Last Filed Vital Signs Vital Sign Reading Time Taken Comments Blood Pressure 122/74 09/14/2023 5:47 AM CDT Pulse 55 09/14/2023 5:47 AM CDT Temperature 36.1 ??C (97 ??F) 09/14/2023 5:47 AM CDT Respiratory Rate 16 09/14/2023 5:47 AM CDT Oxygen Saturation 95% 09/14/2023 5:47 AM CDT Inhaled Oxygen Concentration - - [...] craniotomy for meningoma resection. Complications: none Consults: [facility] medicine Neurocritical Care PT/OT Pre Operative History: Ruthann is a pleasant 58 y.o. female who [...] 89 70 - 180 mg/dL Performing Location Lab S104 Physical Exam: BP 107/71 (BP Cuff [...] Disp-14 Tablet, R-0, BID Starting Tue09/20/2023, Until Tue09/29/2023, For 7 days, Oral, Normal methocarbamol (ROBAXIN) [...] PRN Starting Tue09/28/2023, Oral, No Print/No Fill Chiloquin-3 Fatty Acids (FISH OIL) 1000 MG capsule [...] Date: 12/14/24 If after 48 hours a [facility] bench scientist has not yet contacted you, please call [phone] to schedule your procedure. Prep instructions will be confirmed at time of scheduling. Your provider has recommended an appointment in MRI. Because MRI uses powerful magnets, the presence of metal in your body may be a safety hazard or affect a portion of the MRI image. Please inform the roll examiner of any metal or electronic devices in your body and if you have a medical implant card, medical assistant secretary card, and/or device controller pleasebring it with [...] Call the Neurosurgery Clinic right away at [phone] if you have: *Any separation of the [...] Take good care, Heriberto Dudley MD (Voy-tek) [facility]ly [facility] Medicine Discharge Instructions to Patient Follow [...] extremities, please call the Neurosurgery clinic at [phone]. Discharge Follow-Up: Future Appointments Provider Department Center 10/03/2023 11:00 AM (Arrive by 10:45 AM) Svitlana Olmos MD [facility] 10/20/2023 10:30 AM NEUROSURGERY MIGUEL [facility] Neurosurgery/Ortho Spine [address] 12/06/2023 10:20 AM Jg Munguia MD [facility] Neurosurgery/Ortho [address] 01/03/2024 11:[address]; EXAM [facility] Dental [facility] also instructed to call clinic or [...] * Discharge Instr - Other Orders* Hina Flood RN - 09/21/2023 7:16 AM CDT Fall Prevention [...] daily (every 24 hours). 100 13 06/01/2005 Chiloquin-3 Fatty Acids (FISH OIL) 1000 MG capsule [...] Dudley MD - 09/22/2023 8:53 AM CDT [facility] General Medicine / Hospitalist Staff Progress Note Patient: Ruthann Rosas : 1965 PCP: Svitlana Olmos MD [facility]* ATT: Jg Munguia MD DOS: 09/22/2023 LOS: [...] Care Provider: Svitlana Olmos MD References: Referral Connection Specialty Connection Brisa Rodriguez Consult Page Question Answer Comment [...] to review results. Take good care, Heriberto (Joan-ramon Dudley MD [facility] Medicine Event Monitor References: Referral Connection Specialty Connection Brisa Rodriguez Consult Page Question Answer Comment Appointment Urgency? Urgent (patient needs to be seen within one week) Location: [facility] Heart [place] Is patient appropriate candidate for self hookup [...] Department Center 10/20/2023 10:30 AM NEUROSURGERY MIGUEL [facility] [address] 12/06/2023 10:20 AM Jg Munguia MD [facility] [address] 01/03/2024 11:20 AM Latha Burns, [facility] AV GD AV Dental Billing based on: Time Total time for the visit was 50 minutes including, but not limited to, ftp-btdk-mv-face time spent reviewing records, counseling, and coordination of care. Heriberto (Voy-angelica) MD Luis Enrique [facility] Medicine Medications: acetaminophen 1,000 mg Oral [...] mg Oral BID lidocaine 30 mL Intradermal Missile Mechanic methocarbamol 500 mg Oral QID polyethylene glycol [...] Dudley MD - 09/21/2023 4:24 PM CDT [facility] General Medicine / Hospitalist Staff Progress Note Patient: Ruthann Rosas : 1965 PCP: Svitlana Olmos MD [facility]* ATT: Jg Munguia MD DOS: 09/21/2023 LOS: [...] Department Center 10/20/2023 10:30 AM NEUROSURGERY MIGUEL [facility] [address] 12/06/2023 10:20 AM Jg Munguia MD [facility] [address] 01/03/2024 11:20 AM Latha Burns, [facility] AV GD AV Dental Billing based on: Time Total time for the visit was 50 minutes including, but not limited to, fke-pkse-as-face time spent reviewing records, counseling, and coordination of care. Heriberto Dudley MD (Voy-tek) [facility] Medicine Medications: acetaminophen 1,000 mg [...] mg Oral BID lidocaine 30 mL Intradermal Missile Mechanic methocarbamol 500 mg Oral QID polyethylene glycol [...] Intake/Output Summary (Last 24 hours) at 09/21/2023 1625 Last data filed at 09/21/2023 0957 Gross [...] 211 221 266 BMP Recent Labs 09/16/23 0609/17/23 0609/18/23 0909/19/23 0628 09/21/23 0629 SODIUM 140 [...] 150 - 450 x10(9)/L Final * Svitlana Bazan, CLINICAL GENETICIST, ECOMMERCE MARKETING SPECIALIST - 09/20/2023 11:27 AM CDT [facility] Inpatient Neurosurgery Daily Progress Note Today's Date: [...] with the above stated plan. Svitlana Bazan, CLINICAL GENETICIST, ECOMMERCE MARKETING SPECIALIST 09/20/2023, 11:28 AM Neurosurgery Service Pager [phone] Subjective: No Acute Events Overnight. Juwan reports [...] Dudley MD - 09/20/2023 9:39 AM CDT [facility] General Medicine / Hospitalist Staff Progress Note Patient: Ruthann Rosas : 1965 PCP: Svitlana Olmos MD [facility]* ATT: Jg Munguia MD DOS: 09/20/2023 LOS: [...] Department Center 10/20/2023 10:30 AM [facility] [address] [address] 12/06/2023 10:20 AM Jg Munguia MD [facility] [address] 01/03/2024 11:[address] AV GD AV Dental Billing based on: Time Total time for the visit was 50 minutes including, but not limited to, dhv-hbzj-mj-face time spent reviewing records, counseling, and coordination of care. Heriberto (Voy-angelica) MD Luis Enrique [facility] Medicine Medications: acetaminophen 1,000 mg [...] mg Oral BID lidocaine 30 mL Intradermal Missile Mechanic methocarbamol 500 mg Oral QID polyethylene glycol [...] Labs 09/16/23 0629 09/17/23 0609/18/23 0909/19/23 0628 SODIUM 140 139 136 136 [...] 450 x10(9)/L Final * Therese Dela Cruz, DELMY, ECOMMERCE MARKETING SPECIALIST - 09/18/2023 8:05 AM CDT Neurosurgery Progress [...] the above stated plan Therese Dela Cruz, CLINICAL GENETICIST, ECOMMERCE MARKETING SPECIALIST, 09/18/2023, 8:06 AM Neurosurgery Pager# [phone] * Therese Dela Cruz APRN, CNP - [...] APRN, JASON, 09/17/2023, 12:28 PM Neurosurgery Pager# [phone] t * Hina Nielson PA-C - 09/16/2023 7:32 AM CDT Neurosurgery Progress Note [facility] Date of service: 09/16/2023 Assessment 58 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 Munguia on 09/14/23. Plan: - Neurosurgery primary - Appreciate [facility] assistance with management - Ok for floor [...] 09/15/2023 2:12 PM CDT Neurosurgery Progress Note [facility] Date of service: 09/15/2023 Assessment 58 [...] Munguia MD - 09/14/2023 12:45 PM CDT [facility] Brief Operative Progress Note Surgery Date: 09/14/2023 [...] Tissue [place] [id number] Complications / Findings: none / gross total resection Plan: -SICU -SBP <130 -HOB >30 degrees - Keppra for 2 weeks -Steroid taper 1 week -Ceftriaxone for 24 hors -Brain MRI tomorrow Jg Munguia MD 09/14/2023, 12:49 PM documented in this encounter Consult Notes * Chiquita Gaffney MD - 09/19/2023 1:31 PM CDTAssociated Order(s): INTERNAL MEDICINE CONSULT [facility] Medicine Consultation Date of Service: 09/19/2023 Chief [...] monitor upon discharge (ordered) Chiquita Gaffney MD [facility] Medicine * Matthieu Mazariegos PA-C - 09/15/2023 [...] - Tyelnol and oxycodone for pain - TECHNOLOGY INSTRUCTOR Chantix for smoking cessation - PT/OT/E COMMERCE ARCHITECT/Rehab Cardio: - BP above - Labetalol and [...] ICU Course: 09/13: Post op tumor resection. [facility] admission 718: No acute events overnight. Some [...] no further BP issues. Billing based on [facility] MAXIMUS Ceja, FAAN Critical care neurology [phone] * Aretha Morales MBBS - 09/14/2023 9:43 [...] - Tyelnol and oxycodone for pain - PT/OT/E COMMERCE ARCHITECT/Rehab Cardio: - BP above - Labetalol and [...] care. MAXIMUS Ceja, FAAN Critical care neurology [phone] CHIEF COMPLAINT: Post op tumor resection HISTORY [...] ICU Course: 09/13: Post op tumor resection. [facility] admission PAST MEDICAL HISTORY: Past Medical History: [...] Info) Description 09/29/2023 8:40 AM CDT Appointment [facility] Neurosurgery/Ortho Spine [address] [facility] [place] [address] Nurse Visit 10/03/2023 11:00 AM CDT Appointment [facility] [address] [place] [address] [place] [address] Svitlana Olmos MD [address] [place] [address] [place] [address] 10/20/2023 10:30 AM CDT Appointment [facility] Neurosurgery/Ortho Spine [address] [place] [address] 12/06/2023 10:20 AM CDT Appointment [facility] Neurosurgery/Ortho Spine [address] [facility] [place] [address] Jg Munguia MD [address] [place] [address] 01/03/2024 11:20 AM CONFIGURATION MANAGEMENT ADMINISTRATOR Appointment [facility] Dental [facility] [address] [place], [place] [id number] Latha Burns RDH [address] [place] [address] Scheduled Orders Name Type Priority Associated Diagnoses [...] 180 mg/dL 09/22/2023 1:03 PM CDT [facility] Performing Location Lab S104 09/22/2023 1:03 PM CDT [facility] Blood 09/22/2023 1:01 PM CDT 09/22/2023 1:03 PM CDT Jg Munguia MD LAB_1 Performing Organization Address [facility]/ZIP Co de Phone Number [address] * Glucose, Whole Blood POCT (09/22/2023 7:31 AM CDT) Glucose, Whole Blood 96 70 - 180 mg/dL 09/22/2023 7:32 AM CDT [facility] Performing Location Lab S104 09/22/2023 7:32 AM CDT [facility] Blood 09/22/2023 7:31 AM CDT 09/22/2023 7:32 AM CDT Jg Munguia MD LAB_1 Performing Organization Address [facility]/ZIP Co de Phone Number [address] * Glucose, Whole Blood POCT (09/21/2023 9:43 PM CDT) Glucose, Whole Blood 111 70 - 180 mg/dL 09/21/2023 9:44 PM CDT [facility] Performing Location Lab S104 09/21/2023 9:44 PM CDT [facility] Blood 09/21/2023 9:43 PM CDT 09/21/2023 9:44 PM CDT Jg Munguia MD LAB_[address] * Glucose, Whole Blood POCT (09/21/2023 5:04 PM CDT) Glucose, Whole Blood 105 70 - 180 mg/dL 09/21/2023 5:06 PM CDT [facility] Performing Location RCLab S104 09/21/2023 5:06 PM CDT [facility] Blood 09/21/2023 5:04 PM CDT 09/21/2023 5:05 PM CDT Jg Munguia MD LAB_1 Performing Organization Address [facility]/ZIP Co de Phone Number [address] * Glucose, Whole Blood POCT (09/21/2023 2:07 PM CDT) Glucose, Whole Blood 127 70 - 180 mg/dL 09/21/2023 2:08 PM CDT [facility] Performing Location RCLab S104 09/21/2023 2:08 PM CDT [facility] Blood 09/21/2023 2:07 PM CDT 09/21/2023 2:08 PM CDT Jg Munguia MD LAB_1 Performing Organization Address [facility]/ZIP Co de Phone Number [address] * Glucose, Whole Blood POCT (09/21/2023 8:12 AM CDT) Glucose, Whole Blood 97 70 - 180 mg/dL 09/21/2023 8:13 AM CDT [facility] Performing Location RCLab S104 09/21/2023 8:13 AM CDT [facility] Blood 09/21/2023 8:12 AM CDT 09/21/2023 8:13 AM CDT Jg Munguia MD LAB_1 [facility] [address] * Magnesium (09/21/2023 6:29 AM CDT) Magnesium 2.1 1.6 - 2.6 mg/dL 09/21/2023 7:08 AM [facility] Blood Venipuncture / Unknown 09/21/2023 6:29 AM CDT 09/21/2023 6:35 AM CDT Juan Dudley MD LAB_[address] * Basic Metabolic Panel (09/21/2023 6:29 AM CDT) Sodium 136 136 - 145 mmol/L 09/21/2023 7:08 AM [facility] Potassium 4.5 3.5 - 5.1 mmol/L 09/21/2023 7:08 AM [facility] Chloride 104 98 - 109 mmol/L 09/21/2023 7:08 AM [facility] CO2 25 20 - 29 mmol/L 09/21/2023 7:08 AM [facility] Anion Gap 7 6 - 16 mmol/L 09/21/2023 7:08 AM [facility] Calcium 9.5 8.4 - 10.4 mg/dL 09/21/2023 7:08 AM [facility] BUN 17 7 - 26 mg/dL 09/21/2023 7:08 AM [facility] Creatinine 0.61 0.55 - 1.02 mg/dL 09/21/2023 7:08 AM [facility] Glucose 94 70 - 100 mg/dL 09/21/2023 7:08 AM [facility] Comment:The given reference range is for the fasting state. Non-fasting reference range for glucose is 70 - 180 mg/dL. GFR, Estimated >60 >60 mL/min/1.7 3m2 09/21/2023 7:08 AM [facility] Blood Venipuncture / Unknown 09/21/2023 6:29 AM CDT 09/21/2023 6:35 AM CDT Juan Dudley MD LAB_1 Performing Organization Address [facility]/ZIP Co de Phone Number [address] * Glucose, Whole Blood POCT (09/20/2023 10:21 PM CDT) Glucose, Whole Blood 93 70 - 180 mg/dL 09/20/2023 10:23 PM CDT [facility] Performing Location RCLab S104 09/20/2023 10:23 PM CDT [facility] Blood 09/20/2023 10:2 1 PM CDT 09/20/2023 10:23 PM CDT Jg Munguia MD LAB_1 Performing Organization Address [facility] Co de Phone [address] * Glucose, Whole Blood POCT (09/20/2023 3:23 PM CDT) Glucose, Whole Blood 116 70 - 180 mg/dL 09/20/2023 3:24 PM CDT [facility] Performing Location RCLab S104 09/20/2023 3:24 PM CDT [facility] Blood 09/20/2023 3:23 PM CDT 09/20/2023 3:24 PM CDT Jg Munguia MD LAB_1 Performing Organization Address [facility]/ZIP Co de Phone Number [address] * Glucose, Whole Blood POCT (09/20/2023 11:32 AM CDT) Glucose, Whole Blood 154 70 - 180 mg/dL 09/20/2023 11:34 AM CDT [facility] POCT Comment 1 MD/RN Notified 09/20/2023 11:34 AM CDT [facility] Performing Location RCLab S104 09/20/2023 11:34 AM CDT [facility] Blood 09/20/2023 11:3 2 AM CDT 09/20/2023 11:34 AM CDT Jg Munguia MD LAB_1 Performing Organization Address [facility] Co de Phone Number [address] * Glucose, Whole Blood POCT (09/20/2023 7:42 AM CDT) Glucose, Whole Blood 101 70 - 180 mg/dL 09/20/2023 7:43 AM CDT [facility] Performing Location RCLab S104 09/20/2023 7:43 AM CDT [facility] Blood 09/20/2023 7:42 AM CDT 09/20/2023 7:43 AM CDT Jg Munguia MD LAB_1 Performing Organization Address [facility] Phone [address] * Extra Lavender top tube (09/20/2023 6:39 AM CDT) Extra Lavender Top Drawn Specimen will be held for 3 days 09/20/2023 8:00 AM CDT [facility] Blood Venipuncture / Unknown 09/20/2023 6:39 AM CDT 09/20/2023 6:59 AM CDT Jg Munguia MD LAB_1 Performing Organization Address [facility] Co de Phone Number [address] * Liver Panel(Hepatic Function Panel) (09/20/2023 6:39 AM CDT) Alkaline Phosphatase 71 40 - 150 U/L 09/20/2023 7:39 AM CDT [facility] Bilirubin, Total 0.2 0.2 - 1.2 mg/dL 09/20/2023 7:39 AM CDT [facility] Bilirubin, Direct 0.1 0.0 - 0.5 mg/dL 09/20/2023 7:39 AM CDT [facility] AST (SGOT) 10 10 - 40 U/L 09/20/2023 7:39 AM CDT [facility] ALT (SGPT) 28 <=55 U/L 09/20/2023 7:39 AM CDT [facility] Protein, Total 6.5 6.4 - 8.3 g/dL 09/20/2023 7:39 AM CDT [facility] Albumin 3.5 3.5 - 5.0 g/dL 09/20/2023 7:39 AM CDT [facility] Blood Venipuncture / Unknown 09/20/2023 6:39 AM CDT 09/20/2023 6:58 AM CDT Chiquita Smith MD LAB_1 Performing Organization Address City/[facility]/ZIP Co de Phone Number [address] * Glucose, Whole Blood POCT (09/19/2023 10:59 PM CDT) Glucose, Whole Blood 95 70 - 180 mg/dL 09/19/2023 11:01 PM CDT [facility] Performing Location RCLab S104 09/19/2023 11:01 PM CDT [facility] Blood 09/19/2023 10:5 9 PM CDT 09/19/2023 11:00 PM CDT Jg Munguia MD LAB_1 Performing Organization Address City/[facility]/ZIP Co de Phone Number [address] * Glucose, Whole Blood POCT (09/19/2023 6:13 PM CDT) Glucose, Whole Blood 98 70 - 180 mg/dL 09/19/2023 6:14 PM CDT [facility] Performing Location RCLab S104 09/19/2023 6:14 PM CDT [facility] Blood 09/19/2023 6:13 PM CDT 09/19/2023 6:14 PM CDT Jg Munguia MD LAB_1 Performing Organization Address City/[facility]/ZIP Co de Phone Number [address] * EJECTION FRACTION (09/19/2023 1:43 PM CDT) EF 70 % PROSOLV EF test type ECHO PROSOLV 09/19/2023 1:43 PM CDT Chiquita Smith MD [facility] CATH LA B/RH Performing Organization Address [facility] de Phone Number [facility] [address] [place] [address] * Cardiac Routine Echocardiogram (09/19/2023 1:43 PM [...] MD HEART CENTER ECHO/RH Performing Organization Address [facility] Co de Phone Number [facility] [address] [place] [address] * (ABNORMAL) Glucose, Whole Blood POCT (09/19/2023 12:03 PM CDT) Glucose, Whole Blood 186(H) 70 - 180 mg/dL 09/19/2023 12:04 PM CDT [facility] POCT Comment 1 MD/RN Notified 09/19/2023 12:04 PM CDT [facility] Performing Location RCLab S104 09/19/2023 12:04 PM CDT [facility] Blood 09/19/2023 12:0 3 PM CDT 09/19/2023 12:04 PM CDT Jg Munguia MD LAB_1 Performing Organization Address [facility]/ZIP Co de Phone Number [address] * ECG 12-Lead Routine (Lab perform) (09/19/2023 9:43 AM CDT) EKG Completed 09/19/2023 12:00 PM CDT [facility] Other Specimen Type Non-blood Collection / Unknown 09/19/2023 9:43 AM CDT 09/19/2023 10:30 AM CDT Chiquita Smith MD LAB_1 Performing Organization Address City/[facility]/ZIP Co de Phone Number [address] * Ecg 12-Lead Routine (MUSE) (09/19/2023 9:36 AM CDT) Ventricular Rate 53 BPM MUSE GHP Atrial Rate 53 BPM MUSE GHP P-R Interval 146 ms MUSE GHP QRS Duration 76 ms MUSE GHP QT 522 ms MUSE GHP QTc 489 ms MUSE GHP P River 27 degrees MUSE GHP R River 1 degrees MUSE GHP T River 27 degrees MUSE GHP 09/19/2023 9:36 AM CDT Narrative MUSE GHP - 09/19/2023 10:23 AM CDT Sinus bradycardia Minimal voltage criteria for LVH, may be normal variant Cannot rule out Inferior infarct (cited on or before 26-DEC-2019) Abnormal ECG When compared with ECG of 31-AUG-2023 10:50, MT interval has decreased Confirmed by Anaid Garcia ([id number]) on 09/19/2023 10:23:02 AM Procedure Note Anaid Garcia MD - 09/19/2023 Sinus bradycardia Minimal voltage criteria for LVH, may be normal variant Cannot rule out Inferior infarct (cited on or before 26-DEC-2019) Abnormal ECG When compared with ECG of 31-AUG-2023 10:50, MT interval has decreased Confirmed by Anaid Garcia ([id number]) on 09/19/2023 10:23:02 AM Chiquita Smith MD EKG Performing Organization Address City/[facility]/ZIP Co de Phone Number [facility] [address] [place] [id number] * Glucose, Whole Blood POCT (09/19/2023 9:05 AM CDT) Glucose, Whole Blood 119 70 - 180 mg/dL 09/19/2023 9:06 AM [facility] Performing Location RCLab S104 09/19/2023 9:06 AM [facility] Blood 09/19/2023 9:05 AM CDT 09/19/2023 9:06 AM CDT Jg Munguia MD LAB_1 Performing Organization Address City/[facility]/[place] [address], [facility] * (ABNORMAL) Lipid Panel & Direct LDL (if Needed) (09/19/2023 6:28 AM CDT) Cholesterol 186 0 - 199 mg/dL 09/19/2023 10:55 PM T [facility] Triglyceride 215(H) <=149 mg/dL 09/19/2023 10:55 PM T [facility] HDL Cholesterol 37(L) >=40 mg/dL 10:55 PM [facility] LDL, Calculated 106 <130 mg/dL 10:55 PM T [facility] Non HDL Chol, Calculated 149 <=159 mg/dL 09/19/2023 10:55 PM [facility] Cholesterol/HDL Ratio 5.0 <=5.0 09/19/2023 10:55 PM [facility] Blood Venipuncture / Unknown 09/19/2023 6:28 AM CDT 09/19/2023 6:59 AM CDT Chiquita Smith MD LAB_1 Performing Organization Address [facility]/ZIP Co de Phone Number [address] * TSH with reflex to fT4 (not for treatment monitoring) (09/19/2023 6:28 AM CDT) TSH, Reflex 0.92 0.30 - 4.50 uIU/mL 09/19/2023 11:13 PM [facility] Blood Venipuncture / Unknown 09/19/2023 6:28 AM CDT 09/19/2023 6:59 AM CDT Chiquita Smith MD LAB_1 Performing Organization Address [facility] Co de Phone Number [address] * (ABNORMAL) Complete Blood Count-No Diff (09/19/2023 6:28 AM CDT) WBC 10.6(H) 3.5 - 10.5 x10(9)/L 09/19/2023 7:12 AM [facility] RBC 4.49 3.90 - 5.03 x10(12)/L 09/19/2023 7:12 AM [facility] Hemoglobin 12.7 12.0 - 15.5 g/dL 09/19/2023 7:12 AM [facility] HCT 38.3 34.9 - 44.5 % 09/19/2023 7:12 AM [facility] MCV 85.3 80.0 - 100.0 fL 09/19/2023 7:12 AM [facility] MCH 28.3 27.6 - 33.3 pg 09/19/2023 7:12 AM [facility] MCHC 33.2 31.5 - 35.2 g/dL 09/19/2023 7:12 AM [facility] [facility] RDW 13.2 11.9 - 15.5 % 09/19/2023 7:12 AM [facility] Platelets 266 150 - 450 x10(9)/L 09/19/2023 7:12 AM [facility] Automated NRBC 0 <=0 /100 WBC 09/19/2023 7:12 AM [facility] Blood Venipuncture / Unknown 09/19/2023 6:28 AM CDT 09/19/2023 6:59 AM CDT Sherman Trivedi MD LAB_[address] * Basic Metabolic Panel (09/19/2023 6:28 AM CDT) Sodium 136 136 - 145 mmol/L 09/19/2023 7:36 AM [facility] Potassium 4.3 3.5 - 5.1 mmol/L 09/19/2023 7:36 AM [facility] Chloride 104 98 - 109 mmol/L 09/19/2023 7:36 AM [facility] CO2 23 20 - 29 mmol/L 09/19/2023 7:36 AM [facility] Anion Gap 9 6 - 16 mmol/L 09/19/2023 7:36 AM [facility] Calcium 9.4 8.4 - 10.4 mg/dL 09/19/2023 7:36 AM [facility] BUN 13 7 - 26 mg/dL 09/19/2023 7:36 AM [facility] Creatinine 0.55 0.55 - 1.02 mg/dL 09/19/2023 7:36 AM [facility] Glucose 95 70 - 100 mg/dL 09/19/2023 7:36 AM [facility] Comment:The given reference range is for the fasting state. Non-fasting reference range for glucose is 70 - 180 mg/dL. GFR, Estimated >60 >60 mL/min/1.7 3m2 09/19/2023 7:36 AM [facility] Blood Venipuncture / Unknown 09/19/2023 6:28 AM CDT 09/19/2023 6:59 AM CDT Sherman Trivedi MD LAB_1 Performing Organization Address [facility] Phone Number [address] * Phosphorus (09/19/2023 6:28 AM CDT) Phosphorus 3.2 2.3 - 4.7 mg/dL 09/19/2023 7:36 AM CDT [facility] Blood Venipuncture / Unknown 09/19/2023 6:28 AM CDT 09/19/2023 6:59 AM CDT Sherman Trivedi MD LAB_1 Performing Organization Address [facility]/[address] * Magnesium (09/19/2023 6:28 AM CDT) Magnesium 2.1 1.6 - 2.6 mg/dL 09/19/2023 7:36 AM CDT [facility] Blood Venipuncture / Unknown 09/19/2023 6:28 AM CDT 09/19/2023 6:59 AM CDT Sherman Trivedi MD LAB_1 Performing Organization Address [facility]/[address] * Glucose, Whole Blood POCT (09/18/2023 9:25 PM CDT) Glucose, Whole Blood 102 70 - 180 mg/dL 09/18/2023 9:26 PM CDT [facility] Performing Location RCLab S104 09/18/2023 9:26 PM CDT [facility] Blood 09/18/2023 9:25 PM CDT 09/18/2023 9:26 PM CDT Jg Munguia MD LAB_1 Performing Organization Address [facility] Co de Phone Number [address] * Magnesium (09/18/2023 6:10 PM CDT) Magnesium 2.4 1.6 - 2.6 mg/dL 09/18/2023 6:41 PM CDT [facility] Blood Venipuncture / Unknown 09/18/2023 6:10 PM CDT 09/18/2023 6:13 PM CDT Jg Munguia MD LAB_[address] * Glucose, Whole Blood POCT (09/18/2023 4:01 PM CDT) Glucose, Whole Blood 95 70 - 180 mg/dL 09/18/2023 4:02 PM CDT [facility] Performing Location RCLab S104 09/18/2023 4:02 PM CDT [facility] Blood 09/18/2023 4:01 PM CDT 09/18/2023 4:02 PM CDT Jg Munguia MD LAB_[address] * Glucose, Whole Blood POCT (09/18/2023 12:37 PM CDT) Glucose, Whole Blood 142 70 - 180 mg/dL 09/18/2023 12:38 PM CDT [facility] Performing Location RCLab S104 09/18/2023 12:38 PM CDT [facility] Blood 09/18/2023 12:3 7 PM CDT 09/18/2023 12:38 PM CDT Jg Munguia MD LAB_[address] * Complete Blood Count-No Diff (09/18/2023 9:00 AM CDT) WBC 9.1 3.5 - 10.5 x10(9)/L 09/18/2023 9:12 AM [facility] RBC 4.48 3.90 - 5.03 x10(12)/L 09/18/2023 9:12 AM [facility] Hemoglobin 12.7 12.0 - 15.5 g/dL 09/18/2023 9:12 AM [facility] HCT 38.8 34.9 - 44.5 % 09/18/2023 9:12 AM [facility] MCV 86.6 80.0 - 100.0 fL 09/18/2023 9:12 AM [facility] MCH 28.3 27.6 - 33.3 pg 09/18/2023 9:12 AM [facility] MCHC 32.7 31.5 - 35.2 g/dL 09/18/2023 9:12 AM [facility] RDW 13.4 11.9 - 15.5 % 09/18/2023 9:12 AM [facility] Platelets 221 150 - 450 x10(9)/L 09/18/2023 9:12 AM [facility] Automated NRBC 0 <=0 /100 WBC 09/18/2023 9:12 AM [facility] Blood Venipuncture / Unknown 09/18/2023 9:00 AM CDT 09/18/2023 9:08 AM CDT Sherman Trivedi MD LAB_1 Performing Organization Address City/State/[facility] Co de Phone Number [address] * (ABNORMAL) Basic Metabolic Panel (09/18/2023 9:00 AM CDT) Pathologist [facility] Sodium 136 136 - 145 mmol/L 09/18/2023 9:35 AM [facility] Potassium 4.0 3.5 - 5.1 mmol/L 09/18/2023 9:35 AM [facility] Comment:Specimen slightly he molyzed. Hemolysis may affect result. Chloride 105 98 - 109 mmol/L 09/18/2023 9:35 AM [facility] CO2 23 20 - 29 mmol/L 09/18/2023 9:35 AM [facility] Anion Gap 8 6 - 16 mmol/L 09/18/2023 9:35 AM [facility] Calcium 9.5 8.4 - 10.4 mg/dL 09/18/2023 9:35 AM [facility] BUN 14 7 - 26 mg/dL 09/18/2023 9:35 AM [facility] Creatinine 0.59 0.55 - 1.02 mg/dL 09/18/2023 9:35 AM [facility] Glucose 107(H) 70 - 100 mg/dL 09/18/2023 9:35 AM [facility] Comment:The given reference range is for the fasting state. Non-fasting reference range for glucose is 70 - 180 mg/dL. GFR, Estimated >60 >60 mL/min/1.7 3m2 09/18/2023 9:35 AM [facility] Blood Venipuncture / Unknown 09/18/2023 9:00 AM CDT 09/18/2023 9:08 AM CDT Sherman Trivedi MD LAB_1 Performing Organization Address City/[facility]/ZIP Co de Phone Number [address] * Phosphorus (09/18/2023 9:00 AM CDT) Phosphorus 2.9 2.3 - 4.7 mg/dL 09/18/2023 9:35 AM [facility] Blood Venipuncture / Unknown 09/18/2023 9:00 AM CDT 09/18/2023 9:08 AM CDT Sherman Trivedi MD LAB_1 Performing Organization Address City/[facility]/ZIP Co de Phone Number [address] * Magnesium (09/18/2023 9:00 AM CDT) Magnesium 1.9 1.6 - 2.6 mg/dL 09/18/2023 9:35 AM [facility] Blood Venipuncture / Unknown 09/18/2023 9:00 AM CDT 09/18/2023 9:08 AM CDT Sherman Trivedi MD LAB_1 Performing Organization Address [facility]/ZIP Co de Phone Number [address] * Glucose, Whole Blood POCT (09/18/2023 7:40 AM CDT) Glucose, Whole Blood 109 70 - 180 mg/dL 09/18/2023 7:41 AM CDT [facility] Performing Location Lab S104 09/18/2023 7:41 AM CDT [facility] Blood 09/18/2023 7:40 AM CDT 09/18/2023 7:41 AM CDT Jg Munguia MD LAB_1 Performing Organization Address [facility] Phone [address] * Glucose, Whole Blood POCT (09/17/2023 9:54 PM CDT) Glucose, Whole Blood 134 70 - 180 mg/dL 09/17/2023 9:55 PM CDT [facility] Performing Location Lab S104 09/17/2023 9:55 PM CDT [facility] Blood 09/17/2023 9:54 PM CDT 09/17/2023 9:55 PM CDT Jg Munguia MD LAB_1 Performing Organization Address [facility]/ZIP Co de Phone Number [address] * Glucose, Whole Blood POCT (09/17/2023 8:32 AM CDT) Glucose, Whole Blood 118 70 - 180 mg/dL 09/17/2023 8:34 AM CDT [facility] Performing Location Lab S104 09/17/2023 8:34 AM CDT [facility] Blood 09/17/2023 8:32 AM CDT 09/17/2023 8:34 AM CDT Jg Munguia MD LAB_[address] * (ABNORMAL) Complete Blood Count-No Diff (09/17/2023 6:27 AM CDT) WBC 11.0(H) 3.5 - 10.5 x10(9)/L 09/17/2023 6:37 AM T [facility] RBC 4.00 3.90 - 5.03 x10(12)/L 09/17/2023 6:37 AM [facility] Hemoglobin 11.3(L) 12.0 - 15.5 g/dL 09/17/2023 6:37 AM [facility] HCT 34.5(L) 34.9 - 44.5 % 09/17/2023 6:37 AM [facility] MCV 86.3 80.0 - 100.0 fL 09/17/2023 6:37 AM [facility] MCH 28.3 27.6 - 33.3 pg 09/17/2023 6:37 AM [facility] MCHC 32.8 31.5 - 35.2 g/dL 09/17/2023 6:37 AM [facility] RDW 13.6 11.9 - 15.5 % 09/17/2023 6:37 AM [facility] Platelets 211 150 - 450 x10(9)/L 09/17/2023 6:37 AM [facility] Automated NRBC 0 <=0 /100 WBC 09/17/2023 6:37 AM [facility] Blood Venipuncture Butterfly / Unknown 09/17/2023 6:27 AM CDT 09/17/2023 6:32 AM CDT Sherman Trivedi MD LAB_1 [address] * (ABNORMAL) Basic Metabolic Panel (09/17/2023 6:27 AM CDT) Sodium 139 136 - 145 mmol/L 09/17/2023 6:59 AM [facility] Potassium 4.1 3.5 - 5.1 mmol/L 09/17/2023 6:59 AM [facility] Chloride 109 98 - 109 mmol/L 09/17/2023 6:59 AM [facility] CO2 23 20 - 29 mmol/L 09/17/2023 6:59 AM [facility] Anion Gap 7 6 - 16 mmol/L 09/17/2023 6:59 AM [facility] Calcium 9.6 8.4 - 10.4 mg/dL 09/17/2023 6:59 AM [facility] BUN 14 7 - 26 mg/dL 09/17/2023 6:59 AM [facility] Creatinine 0.54(L) 0.55 - 1.02 mg/dL 09/17/2023 6:59 AM [facility] Glucose 121(H) 70 - 100 mg/dL 09/17/2023 6:59 AM [facility] Comment:The given reference range is for the fasting state. Non-fasting reference range for glucose is 70 - 180 mg/dL. GFR, Estimated >60 >60 mL/min/1.7 3m2 09/17/2023 6:59 AM [facility] Blood Venipuncture Butterfly / Unknown 09/17/2023 6:27 AM CDT 09/17/2023 6:32 AM CDT Sherman Trivedi MD LAB_1 Performing Organization Address City/[facility] Co de Phone Number [address] * Phosphorus (09/17/2023 6:27 AM CDT) Phosphorus 3.4 2.3 - 4.7 mg/dL 09/17/2023 6:59 AM [facility] Blood Venipuncture Butterfly / Unknown 09/17/2023 6:27 AM CDT 09/17/2023 6:32 AM CDT Sherman Trivedi MD LAB_1 Performing Organization Address [facility]/ZIP Co de Phone Number [address] * Magnesium (09/17/2023 6:27 AM CDT) Magnesium 2.1 1.6 - 2.6 mg/dL 09/17/2023 6:59 AM CDT [facility] Blood Venipuncture Butterfly / Unknown 09/17/2023 6:27 AM CDT 09/17/2023 6:32 AM CDT Sherman Trivedi MD LAB_[address] * Glucose, Whole Blood POCT (09/16/2023 9:46 PM CDT) Glucose, Whole Blood 140 70 - 180 mg/dL 09/16/2023 9:48 PM CDT [facility] Performing Location RCLab S104 09/16/2023 9:48 PM CDT [facility] Blood 09/16/2023 9:46 PM CDT 09/16/2023 9:48 PM CDT Jg Munguia MD LAB_1 Performing Organization Address [facility] Co de Phone Number [address] * MAGNESIUM (09/16/2023 6:49 PM CDT) Magnesium 2.0 1.6 - 2.6 mg/dL 09/16/2023 7:16 PM CDT [facility] Blood Venipuncture / Unknown 09/16/2023 6:49 PM CDT 09/16/2023 6:53 PM CDT Jg Munguia MD LAB_1 Performing Organization Address [facility] Co de Phone Number [address] * Glucose, Whole Blood POCT (09/16/2023 4:31 PM CDT) Glucose, Whole Blood 118 70 - 180 mg/dL 09/16/2023 4:32 PM CDT [facility] Performing Location RCLab S104 09/16/2023 4:32 PM CDT [facility] Blood 09/16/2023 4:31 PM CDT 09/16/2023 4:32 PM CDT Jg Munguia MD LAB_1 Performing Organization Address [facility]/ZIP Co de Phone Number [address] * Glucose, Whole Blood POCT (09/16/2023 12:03 PM CDT) Glucose, Whole Blood 176 70 - 180 mg/dL 09/16/2023 12:05 PM CDT [facility] Performing Location Lab S104 09/16/2023 12:05 PM CDT [facility] Blood 09/16/2023 12:0 3 PM CDT 09/16/2023 12:05 PM CDT Jg Munguia MD LAB_1 Performing Organization Address [facility] Co de Phone Number [address] * Glucose, Whole Blood POCT (09/16/2023 8:00 AM CDT) Glucose, Whole Blood 133 70 - 180 mg/dL 09/16/2023 8:01 AM CDT [facility] Performing Location Lab S104 09/16/2023 8:01 AM CDT [facility] Blood 09/16/2023 8:00 AM CDT 09/16/2023 8:01 AM CDT Jg Munguia MD LAB_1 Performing Organization Address [facility] Co de Phone Number [address] * (ABNORMAL) Complete Blood Count-No Diff (09/16/2023 6:29 AM CDT) WBC 14.8(H) 3.5 - 10.5 x10(9)/L 09/16/2023 7:31 AM CDT [facility] RBC 4.02 3.90 - 5.03 x10(12)/L 09/16/2023 7:31 AM [facility] Hemoglobin 11.3(L) 12.0 - 15.5 g/dL 09/16/2023 7:31 AM [facility] HCT 35.3 34.9 - 44.5 % 09/16/2023 7:31 AM [facility] MCV 87.8 80.0 - 100.0 fL 09/16/2023 7:31 AM [facility] MCH 28.1 27.6 - 33.3 pg 09/16/2023 7:31 AM [facility] MCHC 32.0 31.5 - 35.2 g/dL 09/16/2023 7:31 AM [facility] RDW 13.7 11.9 - 15.5 % 09/16/2023 7:31 AM [facility] Platelets 204 150 - 450 x10(9)/L 09/16/2023 7:31 AM [facility] Automated NRBC 0 <=0 /100 WBC 09/16/2023 7:31 AM [facility] Blood Venipuncture / Unknown 09/16/2023 6:29 AM CDT 09/16/2023 7:20 AM CDT Sherman Trivedi MD LAB_1 Performing Organization Address City/State/[facility] Co de Phone Number [id number] [place] [address] * (ABNORMAL) Basic Metabolic Panel (09/16/2023 6:29 AM CDT) Sodium 140 136 - 145 mmol/L 09/16/2023 7:54 AM [facility] Potassium 4.0 3.5 - 5.1 mmol/L 09/16/2023 7:54 AM [facility] Chloride 108 98 - 109 mmol/L 09/16/2023 7:54 AM [facility] CO2 24 20 - 29 mmol/L 09/16/2023 7:54 AM [facility] Anion Gap 8 6 - 16 mmol/L 09/16/2023 7:54 AM [facility] Calcium 9.4 8.4 - 10.4 mg/dL 09/16/2023 7:54 AM [facility] BUN 14 7 - 26 mg/dL 09/16/2023 7:54 AM [facility] Creatinine 0.55 0.55 - 1.02 mg/dL 09/16/2023 7:54 AM [facility] Glucose 133(H) 70 - 100 mg/dL 09/16/2023 7:54 AM [facility] Comment:The given reference range is for the fasting state. Non-fasting reference range for glucose is 70 - 180 mg/dL. GFR, Estimated >60 >60 mL/min/1.7 3m2 09/16/2023 7:54 AM [facility] Blood Venipuncture / Unknown 09/16/2023 6:29 AM CDT 09/16/2023 7:20 AM CDT Sherman Trivedi MD LAB_1 Performing Organization Address [facility]/ZIP Co de Phone Number [address] * Phosphorus (09/16/2023 6:29 AM CDT) Phosphorus 2.4 2.3 - 4.7 mg/dL 09/16/2023 7:54 AM CDT [facility] Blood Venipuncture / Unknown 09/16/2023 6:29 AM CDT 09/16/2023 7:20 AM CDT Sherman Trivedi MD LAB_1 Performing Organization Address City/[facility]/ZIP Co de Phone Number [address] * Magnesium (09/16/2023 6:29 AM CDT) Magnesium 1.9 1.6 - 2.6 mg/dL 09/16/2023 7:54 AM CDT [facility] Blood Venipuncture / Unknown 09/16/2023 6:29 AM CDT 09/16/2023 7:20 AM CDT Sherman Trivedi MD LAB_1 Performing Organization Address City/[facility]/ZIP Co de Phone Number [address] * Glucose, Whole Blood POCT (09/15/2023 9:08 PM CDT) Glucose, Whole Blood 163 70 - 180 mg/dL 09/15/2023 9:09 PM CDT [facility] Performing Location RCLab S104 09/15/2023 9:09 PM CDT [facility] Blood 09/15/2023 9:08 PM CDT 09/15/2023 9:09 PM CDT Jg Munguia MD LAB_[address] * Glucose, Whole Blood POCT (09/15/2023 4:59 PM CDT) Glucose, Whole Blood 129 70 - 180 mg/dL 09/15/2023 5:00 PM CDT [facility] Location Lab S104 09/15/2023 5:00 PM CDT [facility] Blood 09/15/2023 4:59 PM CDT 09/15/2023 5:00 PM CDT Jg Munguia MD LAB_[address] * Glucose, Whole Blood POCT (09/15/2023 12:47 PM CDT) Glucose, Whole Blood 127 70 - 180 mg/dL 09/15/2023 12:55 PM CDT [facility] Performing Location RCLAB W3 09/15/2023 12:55 PM CDT [facility] Blood 09/15/2023 12:4 7 PM CDT 09/15/2023 12:55 PM CDT Jg Munguia MD LAB_1 [place] [address], [facility] * Glucose, Whole Blood POCT (09/15/2023 8:29 AM CDT) Pathologist [facility] Glucose, Whole Blood 140 70 - 180 mg/dL 09/15/2023 8:34 AM [facility] Performing Location RCLAB W3 09/15/2023 8:34 AM [facility] Blood 09/15/2023 8:29 AM CDT 09/15/2023 8:34 AM CDT Jg Munguia MD LAB_1 Performing Organization Address City/State/[facility] Co de Phone Number [address] * (ABNORMAL) Complete Blood Count-No Diff (09/15/2023 3:43 AM CDT) [facility] WBC 16.4(H) 3.5 - 10.5 x10(9)/L 09/15/2023 3:54 AM [facility] RBC 4.16 3.90 - 5.03 x10(12)/L 09/15/2023 3:54 AM [facility] Hemoglobin 11.8(L) 12.0 - 15.5 g/dL 09/15/2023 3:54 AM [facility] HCT 36.2 34.9 - 44.5 % 09/15/2023 3:54 AM [facility] MCV 87.0 80.0 - 100.0 fL 09/15/2023 3:54 AM [facility] MCH 28.4 27.6 - 33.3 pg 09/15/2023 3:54 AM [facility] MCHC 32.6 31.5 - 35.2 g/dL 09/15/2023 3:54 AM [facility] RDW 13.7 11.9 - 15.5 % 09/15/2023 3:54 AM [facility] Platelets 229 150 - 450 x10(9)/L 09/15/2023 3:54 AM [facility] Automated NRBC 0 <=0 /100 WBC 09/15/2023 3:54 AM [facility] Blood Venipuncture / Unknown 09/15/2023 3:43 AM CDT 09/15/2023 3:48 AM CDT Sherman Trivedi MD LAB_1 [facility] [address] * (ABNORMAL) Basic Metabolic Panel (09/15/2023 3:43 AM CDT) Sodium 138 136 - 145 mmol/L 09/15/2023 4:20 AM [facility] Potassium 3.9 3.5 - 5.1 mmol/L 09/15/2023 4:20 AM [facility] Chloride 109 98 - 109 mmol/L 09/15/2023 4:20 AM [facility] CO2 21 20 - 29 mmol/L 09/15/2023 4:20 AM [facility] Anion Gap 8 6 - 16 mmol/L 09/15/2023 4:20 AM [facility] Calcium 9.2 8.4 - 10.4 mg/dL 09/15/2023 4:20 AM [facility] BUN 10 7 - 26 mg/dL 09/15/2023 4:20 AM [facility] Creatinine 0.51(L) 0.55 - 1.02 mg/dL 09/15/2023 4:20 AM [facility] Glucose 136(H) 70 - 100 mg/dL 09/15/2023 4:20 AM [facility] Comment:The given reference range is for the fasting state. Non-fasting reference range for glucose is 70 - 180 mg/dL. GFR, Estimated >60 >60 mL/min/1.7 3m2 09/15/2023 4:20 AM [facility] Blood Venipuncture / Unknown 09/15/2023 3:43 AM CDT 09/15/2023 3:48 AM CDT Sherman Trivedi MD LAB_1 [place] [address], [facility] * Phosphorus (09/15/2023 3:43 AM CDT) Phosphorus 3.9 2.3 - 4.7 mg/dL 09/15/2023 4:20 AM [facility] Blood Venipuncture / Unknown 09/15/2023 3:43 AM CDT 09/15/2023 3:48 AM CDT Sherman Trivedi MD LAB_1 Performing Organization Address [facility] Co de Phone Number [address] * Magnesium (09/15/2023 3:43 AM CDT) Magnesium 2.0 1.6 - 2.6 mg/dL 09/15/2023 4:20 AM CDT [facility] Blood Venipuncture / Unknown 09/15/2023 3:43 AM CDT 09/15/2023 3:48 AM CDT Sherman Trivedi MD LAB_1 Performing Organization Address [facility] de Phone Number [address] * MR Brain W/WO IV Cont (09/15/2023 2:36 AM CDT) Anatomical Region Laterality Modality Head Magnetic Resonan ce 09/15/2023 2:36 AM CDT Narrative 09/15/2023 3:14 AM CDT EXAM: MR BRAIN W/WO IV CONT LOCATION: [facility] DATE: 09/15/2023 INDICATION: S/p eyebrow crani for [...] MR BRAIN W/WO IV CONT LOCATION: [facility] DATE: 09/15/2023 INDICATION: S/p eyebrow crani for [...] - 180 mg/dL 09/15/2023 12:39 AM CDT [facility] POCT Comment 1 MD/RN Notified 09/15/2023 12:39 AM CDT [facility] Performing Location RCLAB W3 09/15/2023 12:39 AM CDT [facility] Blood 09/15/2023 12:3 5 AM CDT 09/15/2023 12:39 AM CDT Jg Munguia MD LAB_1 Performing Organization Address [facility]/ZIP Co de Phone Number [address] * Glucose, Whole Blood POCT (09/14/2023 7:55 PM CDT) Glucose, Whole Blood 127 70 - 180 mg/dL 09/14/2023 7:57 PM CDT [facility] Performing Location RCLAB W3 09/14/2023 7:57 PM CDT [facility] Blood 09/14/2023 7:55 PM CDT 09/14/2023 7:57 PM CDT Jg Munguia MD LAB_1 Performing Organization Address [facility] Co de Phone Number [address] * Phosphorus (09/14/2023 5:57 PM CDT) Phosphorus 3.8 2.3 - 4.7 mg/dL 09/14/2023 7:19 PM CDT [facility] Blood Arterial Line / Unknown 09/14/2023 5:57 PM CDT 09/14/2023 6:03 PM CDT Jg Munguia MD LAB_1 Performing Organization Address [facility] Co de Phone Number [address] * Magnesium (09/14/2023 5:57 PM CDT) Magnesium 1.6 1.6 - 2.6 mg/dL 09/14/2023 7:19 PM CDT [facility] Blood Arterial Line / Unknown 09/14/2023 5:57 PM CDT 09/14/2023 6:03 PM CDT Jg Munguia MD LAB_1 Performing Organization Address [facility] Co de Phone Number [address] * Potassium (09/14/2023 5:57 PM CDT) Potassium 4.1 3.5 - 5.1 mmol/L 09/14/2023 7:20 PM CDT [facility] Blood Arterial Line / Unknown 09/14/2023 5:57 PM CDT 09/14/2023 6:03 PM CDT Jg Munguia MD LAB_1 Performing Organization Address [facility]/ZIP Co de Phone Number [address] * Glucose, Whole Blood POCT (09/14/2023 5:36 PM CDT) [facility] Glucose, Whole Blood 153 70 - 180 mg/dL 09/14/2023 5:38 PM CDT [facility] Performing Location [facility] W3 09/14/2023 5:38 PM T [facility] Blood 09/14/2023 5:36 PM CDT 09/14/2023 5:38 PM CDT Jg Munguia MD LAB_1 Performing Organization Address [facility]/ZIP Co de Phone Number [address] * (ABNORMAL) Basic Metabolic Panel (09/14/2023 1:50 PM CDT) [facility] Sodium 139 136 - 145 mmol/L 09/14/2023 2:26 PM T [facility] Potassium 3.9 3.5 - 5.1 mmol/L 09/14/2023 2:26 PM T [facility] Chloride 108 98 - 109 mmol/L 09/14/2023 2:26 PM [facility] CO2 22 20 - 29 mmol/L 09/14/2023 2:26 PM T [facility] Anion Gap 9 6 - 16 mmol/L 09/14/2023 2:26 PM T [facility] Calcium 9.4 8.4 - 10.4 mg/dL 09/14/2023 2:26 PM [facility] BUN 10 7 - 26 mg/dL 09/14/2023 2:26 PM T [facility] Creatinine 0.68 0.55 - 1.02 mg/dL 09/14/2023 2:26 PM [facility] Glucose 158(H) 70 - 100 mg/dL 09/14/2023 2:26 PM [facility] Comment:The given reference range is for the fasting state. Non-fasting reference range for glucose is 70 - 180 mg/dL. GFR, Estimated >60 >60 mL/min/1.7 3m2 09/14/2023 2:26 PM [facility] Blood Venipuncture / Unknown 09/14/2023 1:50 PM CDT 09/14/2023 1:53 PM CDT Maggie Ding PA-C LAB_1 [facility] [address] [place] [address], [facility] * Complete Blood Count-No Diff (09/14/2023 1:50 PM CDT) WBC 9.0 3.5 - 10.5 x10(9)/L 09/14/2023 2:12 PM [facility] RBC 4.94 3.90 - 5.03 x10(12)/L 09/14/2023 2:12 PM [facility] Hemoglobin 14.0 12.0 - 15.5 g/dL 09/14/2023 2:12 PM [facility] HCT 43.5 34.9 - 44.5 % 09/14/2023 2:12 PM [facility] MCV 88.1 80.0 - 100.0 fL 09/14/2023 2:12 PM [facility] MCH 28.3 27.6 - 33.3 pg 09/14/2023 2:12 PM [facility] MCHC 32.2 31.5 - 35.2 g/dL 09/14/2023 2:12 PM [facility] RDW 13.5 11.9 - 15.5 % 09/14/2023 2:12 PM [facility] Platelets 241 150 - 450 x10(9)/L 09/14/2023 2:12 PM [facility] Automated NRBC 0 <=0 /100 WBC 09/14/2023 2:12 PM [facility] Blood Venipuncture / Unknown 09/14/2023 1:50 PM CDT 09/14/2023 1:53 PM CDT Maggie Ding PA-C LAB_1 Performing Organization Address [facility] Number [address] * Glucose, Whole Blood POCT (09/14/2023 1:00 PM CDT) Pathologist [facility] Glucose, Whole Blood 168 70 - 180 mg/dL 09/14/2023 1:01 PM CDT [facility] Performing Location [facility] PACU 09/14/2023 1:01 PM CDT [facility] Blood 09/14/2023 1:00 PM CDT 09/14/2023 1:01 PM CDT Jg Munguia MD LAB_1 Performing Organization Address [facility]/[address] * Surgical Path (09/14/2023 11:30 AM CDT) Pathologist [facility] Emergency Department Case Report Surgical Pathology ?Case: [id number] ? Authorizing Provider: ??Jg Munguia MD ?Collected: ? 09/14/2023 1130 ? Ordering Location: ? [facility] Operating Room ?Received: ?09/14/2023 1136 ? Pathologist: ? Bella Medina MD ? Specimen: ?Brain, Anterior Skull Based Meningioma ? 09/15/2023 2:51 PM [facility] FINAL DIAGNOSIS A. Brain, anterior skull based tumor, excision: Meningioma, WHO grade 1 Comment: The tumor cells are strongly positive for MT immunohistochemical stain and are negative for ER. 09/15/2023 2:51 PM [facility] Clinical Information Meningioma (HRC) 09/15/2023 2:51 PM [facility] Microscopic Description Microscopic examination is performed. 09/15/2023 2:51 PM [facility] Special Stains The stain controls have been reviewed and stain appropriately. 09/15/2023 2:51 PM [facility] Gross Description A: The specimen is received in formalin and labeled with the patient's name and Brain, Anterior Skull Based Meningioma. The specimen consists of 3.8 x 2.1 x 0.7 cm aggregate of pink-red, irregular soft tissue fragments with cautery. The specimen was excised at 11:30 AM, 09/14/2023 and placed into formalin at 12:01 PM, 09/14/2023. Cell Efficiency Supervisor sections are submitted in 7 cassettes. 09/15/2023 2:51 PM [facility] Embedded Images 09/15/2023 2:51 PM [facility] Tissue SPECIMEN FROM BRAIN / Unknown 09/14/2023 11:30 AM CDT 09/14/2023 11:36 AM CDT Jg Munguia MD LAB PATHOLOGY [id number] [place] [address] * Glucose, Whole Blood POCT (09/14/2023 9:45 AM CDT) Glucose, Whole Blood 144 70 - 180 mg/dL 09/14/2023 9:47 AM CDT [facility] Performing Location [facility] OR 09/14/2023 9:47 AM CDT [facility] Blood 09/14/2023 9:45 AM CDT 09/14/2023 9:47 AM CDT Jg Munguia MD LAB_1 Performing Organization Address [facility] Co de Phone Number [address] * Glucose, Whole Blood POCT (09/14/2023 5:59 AM CDT) Glucose, Whole Blood 110 70 - 180 mg/dL 09/14/2023 6:01 AM CDT [facility] Performing Location [facility] PSCU 09/14/2023 6:01 AM CDT [facility] Blood 09/14/2023 5:59 AM CDT 09/14/2023 6:01 AM CDT Jg Munguia MD LAB_1 Performing Organization Address [facility] Co de Phone Number [address] * Extra [place]/Bank Tube (09/14/2023 5:56 AM CDT) Extra [place]/Bank Tube Drawn Received in BB 09/14/2023 8:08 AM CDT [facility] Blood Venipuncture / Unknown 09/14/2023 5:56 AM CDT 09/14/2023 8:07 AM CDT Bella Medina MD LAB_1 Performing Organization Address City/[facility] Co de Phone Number [facility] [address] [place] [address] * Antibody Screen (09/14/2023 5:52 AM CDT) Antibody Screen Interpretation Negative 09/14/2023 7:00 AM CDT [facility] Blood Venipuncture / Unknown 09/14/2023 5:52 AM CDT 09/14/2023 6:09 AM CDT Mike Davis PA-C LAB_1 [facility] BLOOD [address] * Blood Type (09/14/2023 5:52 AM CDT) ABO O 09/14/2023 7:00 AM CDT [facility] RH Positive 09/14/2023 7:00 AM CDT [facility] Blood Venipuncture / Unknown 09/14/2023 5:52 AM CDT 09/14/2023 6:09 AM CDT iMke Davis PA-C LAB_1 Performing Organization Address [facility] Co de Phone Number [facility] BLOOD [address] * INR/Protime (09/14/2023 5:52 AM CDT) Protime 13.0 11.8 - 14.6 Seconds 09/14/2023 6:28 AM CDT [facility] INR 1.0 0.9 - 1.1 09/14/2023 6:28 AM CDT [facility] Blood Venipuncture / Unknown 09/14/2023 5:52 AM CDT 09/14/2023 6:10 AM CDT [facility] - 09/14/2023 6:28 AM CDT If you take an anticoagulant medicine called warfarin, your doctor or clinician may establish a normal range for you that is different from the baseline range shown. Mike Davis PA-C LAB_1 Performing Organization Address [facility]/ZIP Co de Phone Number [address] * (ABNORMAL) Hemogram with Platelets (09/14/2023 5:52 AM CDT) WBC 6.4 3.5 - 10.5 x10(9)/L 09/14/2023 6:21 AM CDT [facility] RBC 4.78 3.90 - 5.03 x10(12)/L 09/14/2023 6:21 AM [facility] Hemoglobin 13.2 12.0 - 15.5 g/dL 09/14/2023 6:21 AM [facility] HCT 42.2 34.9 - 44.5 % 09/14/2023 6:21 AM [facility] MCV 88.3 80.0 - 100.0 fL 09/14/2023 6:21 AM [facility] MCH 27.6 27.6 - 33.3 pg 09/14/2023 6:21 AM [facility] MCHC 31.3(L) 31.5 - 35.2 g/dL 09/14/2023 6:21 AM [facility] RDW 13.4 11.9 - 15.5 % 09/14/2023 6:21 AM [facility] Platelets 243 150 - 450 x10(9)/L 09/14/2023 6:21 AM [facility] Automated NRBC 0 <=0 /100 WBC 09/14/2023 6:21 AM [facility] Blood Venipuncture / Unknown 09/14/2023 5:52 AM CDT 09/14/2023 6:10 AM CDT Mike Davis PA-C LAB_1 Performing Organization Address City/State/[facility] Co de Phone Number [address] * (ABNORMAL) Basic Metabolic Panel (09/14/2023 5:52 AM CDT) Sodium 140 136 - 145 mmol/L 09/14/2023 6:39 AM [facility] Potassium 4.2 3.5 - 5.1 mmol/L 09/14/2023 6:39 AM [facility] Comment:Specimen slightly he molyzed. Hemolysis may affect result. Chloride 109 98 - 109 mmol/L 09/14/2023 6:39 AM [facility] CO2 22 20 - 29 mmol/L 09/14/2023 6:39 AM [facility] Anion Gap 9 6 - 16 mmol/L 09/14/2023 6:39 AM [facility] Calcium 10.2 8.4 - 10.4 mg/dL 09/14/2023 6:39 AM T [facility] BUN 12 7 - 26 mg/dL 09/14/2023 6:39 AM [facility] Creatinine 0.64 0.55 - 1.02 mg/dL 09/14/2023 6:39 AM [facility] Glucose 104(H) 70 - 100 mg/dL 09/14/2023 6:39 AM [facility] Comment:The given reference range is for the fasting state. Non-fasting reference range for glucose is 70 - 180 mg/dL. GFR, Estimated >60 >60 mL/min/1.7 3m2 09/14/2023 6:39 AM [facility] Blood Venipuncture / Unknown 09/14/2023 5:52 AM CDT 09/14/2023 6:10 AM CDT Mike Davis PA-C LAB_1 Performing Organization Address City/State/[facility] Co de Phone Number [address] documented in this encounter Visit Diagnoses Diagnosis Meningioma (HRC)- Primary Benign neoplasm of cerebral meninges Meningioma (HRC) Benign neoplasm of cerebral meninges Bradycardia, sinus Other specified cardiac dysrhythmias S/P craniotomy Other postprocedural status Meningioma (HRC) Benign neoplasm of cerebral meninges * Plan of Care - Hina Flood RN - 09/22/2023 3:22 PM CDT [facility] Discharge Note - Nursing Admission Date/Time: 09/14/2023 [...] Flood RN - 09/22/2023 9:28 AM CDT [facility]. Practitioner Notified Note Name of Practitioner notified: [...] per MAR with stated relief. Care hours [id number] * Plan of Care - Esther Pina RN - 09/21/2023 9:40 PM CDT [facility] Plan of Care Note Patient alert and [...] appropriately. 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 Lives with adult children who are [...] and can make needs known. 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.) Home Phone Work Phone Mobile Phone WERO BRAY (Son) [phone] -- -- SARY ROSAS (Daughter) [phone] -- -- Stefany Leyva [phone] -- -- Functional Level Prior: Functional Screen (Baseline Prior to Admission) Ambulation: Independent Transferring: Independent Toileting: Independent Bathing: Independent Dressing: Independent Eating: Independent Communication: Understands/communicates without difficulty Swallowing: Swallows foods/liquids without difficulty Meal Preparation: Independent Laundry: Independent Finances: Independent Shopping: Independent Transportation: Drives Independently 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 Lives with adult children who are able to assist Primary Care: Primary Care Primary Care Clinic: [facility] Primary Care Physician: Svitlana Olmos MD Current [...] Phelan RN - 09/20/2023 5:24 AM CDT [facility] Plan of Care Note Assessment: Neuro Plan: [...] and can make needs known. Care Hours [phone] * Plan of Care - Alysa Hardy RN - 09/19/2023 7:02 AM CDT A/o x 4. States incisional pain 5/10, [id number] dosing of prn's utilized per pt request. Swelling at incision. States improved numbness in R hand. Sinus ck, HR 40's-50's. Ambulating to bathroom IND, steady gait. Continent of bladder. Makes needs known. * Plan of Care - Rachel Chilel RN - 09/18/2023 8:04 PM CDT Pt A&Ox4. PERRL. HERNANDEZ. C/o incisional pain tolerable with scheduled and prn medications. Incisional site sutured and WELL DIGGER. Up in room and hallway independently. Tolerating diet. No c/o N/V. Mag 1.9replacement given. Recheck WNL. Able to make need known. * Plan of Care - Daksha Ariza RN - 09/18/2023 6:50 AM CDT A&Ox4, can be forgetful. VSS w/ HR ck on RA. C/o head pain managed w/ PRN pain meds. Denies SOB, N/V. Numbness to RUE, d/t surgery. Incision C/D/I and WELL DIGGER. Swelling/bruising still present to forehead/eyes. C/o no [...] with SBA. Incision CDI. 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 Lives with adult children who are [...] Jean, RN - 09/17/2023 9:00 AM CDT [facility] Care Management Follow Up Note Plan: Care Team Actions Needed: MD medical clearance, discharge orders, PT/OT consult Expected discharge date: 09/19/2023 Anticipated Discharge Plan: Likely home pending PT/OT recs Admission Info: Reason for Consult: discharge planning Chart Reviewed: discussed with patient, discussed with interdisciplinary team Contacts: Emergency Contacts General Maintenance Mechanic (Rel.) Home Phone Work Phone Mobile Phone WERO BRAY (Son) [phone] -- -- SARY ROSAS (Daughter) [phone] -- -- GordonStefany [phone] -- -- Cognitive capacity prior to admission: oriented Independent with ADLs (Prior to Admission)? 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 Lives with adult children who are [...] do initially) Primary Care: Primary Care Clinic: [facility] Primary Care Physician: Svitlana Olmos MD Functional Level Prior: Functional Screen (Baseline Prior to Admission) Ambulation: Independent Transferring: Independent Toileting: Independent Bathing: Independent Dressing: Independent Eating: Independent Communication: Understands/communicates without difficulty Swallowing: Swallows foods/liquids without difficulty Meal Preparation: Independent Laundry: Independent Finances: Independent Shopping: Independent Transportation: Drives Independently 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 Lives with adult children who are able to assist Insurance: [employer] Readmission Assessment: Initial assessment notes: Reviewed patient's chart and discussed plan of care with team during care connection. Met with patient, introduced myself and my role as assistant case manager/manager social services. Verified demographics. Patient currently lives w/ 3 adult children and 2 grandchildren in a house in [place]. 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 She has been on short-term disability since May and is applying for long-term disability. No reported DME at home. Has support from 7 adult children (all of which live nearby), grandchildren. Patient drives to get to their medical appointments. PCP is Svitlana Olmos MD at [facility]. Trixie Mckeon, HEAVY REPAIRER, BUTTERMAKER Admission Date/Time: 09/14/2023 4:48 AM Attending MD: Jg Munguia MD Data Ruthann Rosas was referred to this sawmill manager for discharge planning and care coordination. Ruthann Rosas was admitted to [facility] for [facility] (C) [D32.9]. Insurance: Payor: [employer] / Plan: [...] transport at time of discharge: Family Provider, human capital analyst, bed side RN, and nurse management updated. CM/SW Team will continue to follow for coordination of care, discharge planning and offer support as needed. Sherman Jean GLASS GLAZIER, Cold Type Artist Pager [phone] * Plan of Care - Daksha Ariza RN - 09/17/2023 6:59 AM CDT A&Ox4. VSS w/ HR ck throughout the night. C/o of pain to head/incision, managed w/ PRN pain meds. Denies SOB, N/T, N/V. Incision C/D/I and WELL DIGGER. Swelling still present to forehead/eyes. Up SBA [...] and eyelids. 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 Lives with adult children who are [...] Espino RN - 09/16/2023 1:17 PM CDT [facility] Care Management Follow Up Note Plan: Care Team Actions Needed: MD medical clearance, discharge orders, PT/OT consult Expected discharge date: 09/19/2023 Anticipated Discharge Plan: Likely home pending PT/OT recs Care Coordination Updates: Current Patient Assessment: appropriate, pleasant Barriers/Vulnerabilities: patient continues to require acute medical care Anticipated Transportation Mode: Private Vehicle Contacts: Emergency Contacts General Maintenance Mechanic (Rel.) Home Phone Work Phone Mobile Phone WERO BRAY (Son) [phone] -- -- SARY ROSAS (Daughter) [phone] -- -- Stefany Leyva [phone] -- -- Functional Level Prior: Functional Screen (Baseline Prior to Admission) Ambulation: Independent Transferring: Independent Toileting: Independent Bathing: Independent Dressing: Independent Eating: Independent Communication: Understands/communicates without difficulty Swallowing: Swallows foods/liquids without difficulty Meal Preparation: Independent Laundry: Independent Finances: Independent Shopping: Independent Transportation: Drives Independently 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 Lives with adult children who are able to assist Primary Care: Primary Care Primary Care Clinic: [facility] Primary Care Physician: Svitlana Olmos MD Current [...] Jeronimo RN - 09/15/2023 6:45 PM CDT [facility] Plan of Care Note Assessment: Neuro Status [...] Delcid RN - 09/15/2023 5:00 PM CDT [facility] Nursing Transfer Note Admission Date/Time: 09/14/2023 4:48 [...] PRNs provide some relief but not sufficient. MD ordered additional meds to try this evening. Telemetry: SR/SB w/ 1st AVB, HR 50s-60s. SBP<130, MAP>65. Afebrile. LSC on RA. Pt ate 50% of breakfast and bites of lunch, poor appetite. 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 Voiding via commode, SBA/x1 - occasionally dizzy when ambulating. * Initial Assessments - Linda, Trixie Prieto, HEAVY REPAIRER, BUTTERMAKER - 09/15/2023 3:18 PM CDT [facility] Care Management Initial Assessment Plan: Care Team Actions Needed: MD medical clearance, discharge orders, PT/OT consult Expected discharge date: 09/19/2023 Anticipated Discharge Plan: Likely home pending PT/OT recs Admission Info: Reason for Consult: discharge planning Chart Reviewed: discussed with patient, discussed with interdisciplinary team Contacts: Emergency Contacts General Maintenance Mechanic (Rel.) Home Phone Work Phone Mobile Phone WERO BRAY (Son) [phone] -- -- SARY ROSAS (Daughter) [phone] -- -- Stefany Leyva [phone] -- -- Cognitive capacity prior to admission: oriented Independent with ADLs (Prior to Admission)? 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 Lives with adult children who are [...] Private Vehicle Primary Care: Primary Care Clinic: [facility] Primary Care Physician: Svitlana Olmos MD Functional Level Prior: Functional Screen (Baseline Prior to Admission) Ambulation: Independent Transferring: Independent Toileting: Independent Bathing: Independent Dressing: Independent Eating: Independent Communication: Understands/communicates without difficulty Swallowing: Swallows foods/liquids without difficulty Meal Preparation: Independent Laundry: Independent Finances: Independent Shopping: Independent Transportation: Drives Independently 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 Lives with adult children who are able to assist Insurance: [employer] Readmission Assessment: Additional Comments: Reviewed patient's chart and discussed plan of care with team during care connection. Met with patient, introduced myself and my role as assistant case manager/manager social services. Verified demographics. Patient currently lives w/ 3 adult children and 2 grandchildren in a house in [place]. 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 She has been on short-term disability since May and is applying for long-term disability. No reported DME at home. Has support from 7 adult children (all of which live nearby), grandchildren. Patient drives to get to their medical appointments. PCP is Svitlana Olmos MD at [facility]. Admitted for tumor resection. Pt went to [...] discharge planning and offer support as needed. 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 Lives with adult children who are [...] Branch RN - 09/15/2023 5:48 AM CDT [facility] Plan of Care Note Assumed cares [id number] GCS 15, PERRL, RASS 0/-1. A&Ox4. Strong x4. Baseline weakness to RUE. PRN Oxy and Dilaudid given for MURILLO. Telemetry: SR w/ 1st AVB. Some hypotension, see below. Afebrile. LSC on 2LNC. Tolerating clears. LBM TECHNOLOGY INSTRUCTOR. Strong cath x1, later able to spontaneously void. T&R Q2hrs. MRI completed. [facility]. Practitioner Notified Note Name of Practitioner notified: CANDI He Time of Practitioner notification: 10:21 PM Reason: No labs ordered for AM. Also, BP decreasing. 80's/60-70's. MAP's holding around 65-70. No neuro changes, asymptomatic. Response: 500ml bolus and labs ordered. [facility]. Practitioner Notified Note Name of Practitioner notified: [...] Given 09/21/2023 8:08 PM CDT 1,000 mg Adult Magnesium Replacement Protocol: goal 2 [...] Tue09/14/23 at 1730 bacitracin 500 UNIT/GM ointment ONCE PRN, Starting on Tue09/14/23 at 0827, Intra-op Given 09/14/2023 8:27 AM CDT [address] bacitracin 500 UNIT/GM ointment Topical, TID, First dose on Noy 09/15/23 at 2000, Apply topically to (specify site) [...] count is 50 k/cmm or less., Post-op dexAMETHasone (DECADRON) tablet 2 mg 2 mg, Oral, DAILY, First dose on Tue09/22/23 at 0800, Last dose on Tue09/23/23 at 0800, For 2 days Given 09/22/2023 7:30 AM CDT 2 mg dextrose (D50) IVPB 25 g 25 [...] dose on Tue09/15/23 at 1600, Until Discontinued Given 09/22/2023 6:08 AM CDT 20 mg Given 09/21/2023 3:56 PM CDT 20 mg Given 09/21/2023 7:44 AM CDT 20 mg gelatin adsorbable (GELFOAM) sponge size 100 ONCE PRN, Starting on Tue09/14/23 at 0827, Until Tue09/14/23 at 1647, Intra-op Given 09/14/2023 8:27 AM CDT [address] gentamicin (GARAMYCIN) 80 mg, vancomycin (VANCOCIN) 1,000 mg in sodium chloride for irrigation 1,000 mL irrigation ONCE PRN, Starting on Tue09/14/23 at 0915, Until Tue09/14/23 at 1647 Given 09/14/2023 9:15 AM CDT 1,000 mL Wound Site glucagon rDNA (diagnostic) (GLUCAGEN) injection 1 mg [...] Tue09/22/23 at 1723 hydrOXYzine pamoate (VISTARIL) capsule 50 mg 50 mg, Oral, Q6H PRN, Pain, Starting on Tue09/20/23 at 0904, Until Tue09/22/23 at 1723 Given 09/22/2023 2:59 PM CDT 50 mg Given 09/22/2023 9:15 AM CDT 50 [...] 1723, Give over 1 to 2 minutes levETIRAcetam (KEPPRA) tablet 500 mg 500 mg, Oral, BID, First dose on Tue09/14/23 at 2000, Last dose on Tue09/28/23 at 0800, For 14 days, Post-op Given 09/22/2023 7:30 AM CDT 500 mg Given 09/21/2023 8:09 PM CDT 500 mg Given 09/21/2023 8:05 AM CDT 500 mg lidocaine-epinephrine 1 %-[id number] injection ONCE PRN, Starting on Tue09/14/23 at 0915, Until Tue09/14/23 at 1647, Intra-op Given 09/14/2023 9:15 AM CDT 15 mL Wound Site methocarbamol (ROBAXIN) tablet 500 mg 500 mg, Oral, QID, First dose on Tue09/15/23 at 1600, Until Discontinued Given 09/22/2023 12:10 [...] Given 09/20/2023 8:33 AM CDT 17 g povidone-iodine (BETADINE) 10 % topical liquid ONCE PRN, Starting on Tue09/14/23 at 0828, Intra-op Given 09/14/2023 8:28 AM CDT 100 mL Wound Site senna (SENOKOT) tablet 2 Tablet 2 Tablet, [...] Given 09/21/2023 8:05 AM CDT 2 Tablets thrombin (recombinant) topical liquid ONCE PRN, Starting on Tue09/14/23 at 0827, Until Tue09/14/23 at 1647, Intra-op Given 09/14/2023 8:27 AM CDT 5,000 Units Wound Site thrombin-gelatin (aka SURGIFLO) matrix ONCE PRN, Starting on Tue09/14/23 at 0827, Intra-op Given 09/14/2023 8:27 AM CDT 1 Syringe Wound Site traZODone (DESYREL) tablet 200 mg 200 mg, Oral, HS, First dose on Tue09/14/23 at 2100, Until Discontinued Given 09/21/2023 9:11 PM CDT 200 mg Given 09/20/2023 10:44 PM CDT 200 mg Given 09/19/2023 8:48 PM CDT 200 mg varenicline (CHANTIX) tablet 1 mg 1 mg, Oral, DAILY WITH MEAL, First dose (after last modification) on Noy 09/15/23 at 1300, Until Discontinued, Give with [...] Hina Flood RN)1338 (Given - Provider: Hina Flood RN) Adult Magnesium Replacement Protocol: goal 2 mg/dL [...] Pina RN) 0313 (Noted - Provider: Toya Leija RN)0706 [...] Hina Flood RN)2008 (Given - Provider: Esther Pina, IRINA) dexAMETHasone [...] RN)1944 (Given - Provider: Laurence Phelan RN) 0805 (Given - Provider: Hina Flood RN)2008 (Given - Provider: Esther Pina RN) 0730 (Given - Provider: Hina Flood RN) lidocaine (XYLOCAINE) 1 % injection 30 mL 30 mL, Intradermal, DIRECTOR PRESALES, On Tue09/14/23 at 1730, For 1 dose, For drain removal post-op, Post-op methocarbamol (ROBAXIN) tablet 500 mg 500 mg, Oral, QID, First dose on Tue09/15/23 at 1600, Until Discontinued 0833 (Given - [...] ileus present., Post-op 0833 (Given - Provider: Kahty Su RN) 0804 (Given - Provider: Hina [...] Provider: Toya Leija RN)0915 (Given - Provider: Hina Flood, IRINA)1459 (Given - Provider: Hina Flood, [...] Esther Pina, IRINA)2314 (Given - Provider: Esther Pina RN) 0227 (Given - Provider: Toya Leija RN)0607 [...] day, Starting on Tue09/14/23 at 1701, Until Noy [...] Practitioner. documented in this encounter Care Teams Quirk Sander Relationship Specialty Start Date End Date Svitlana Olmos MD [address] [place] [address] PCP - General 05/30/10 documented as of this encounter
--- OUTSIDE RECORDS SUMMARY | 2023-09-28 12:48 | XMS_ITS | Encounter Summary ---
Author Organization [facility] Address [address] [place] [address] Care Team Providers Care Emergency Medical Technician Name Role Phone Svitlana Olmos MD Primary Care Provider [phone] Reason for Visit * Reason Comments Forms Encounter Details Date Type Department Care Team (Late st Contact Info) Description 09/06/2023 Telephone [facility] [address] [place], [place] [address] Allison Harkins MD [address] [place], [place] [phone] Forms Social History Tobacco Use Types Packs/Day Years [...] as of this encounter Nursing Notes * Sarah Peralta P - 09/06/2023 3:05 PM CDT Certification of Health Care Provider for Family Member's Serious Health Condition and Return to work forms were faxed to [employer] Copy of this paperwork was mailed to the patient documented in this encounter Plan of Treatment Upcoming Encounters Date Type Department Care Team (Late st Contact Info) Description 09/29/2023 8:40 AM CDT Appointment [facility] Neurosurgery/Ortho Spine [address] [place] [address] Nurse Visit 10/03/2023 11:00 AM CDT Appointment [facility] [address] [place] [address] Svitlana Olmos MD [address] [place] [address] 10/20/2023 10:30 AM CDT Appointment [facility] Neurosurgery/Ortho Spine [address] [place] [address] 12/06/2023 10:20 AM CDT Appointment [facility] Neurosurgery/Ortho Spine [address] 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
--- OUTSIDE RECORDS SUMMARY | 2023-09-28 12:48 | XMS_ITS | Encounter Summary ---
Author Organization [facility] Address [address] [place] [address] Care Team Providers Care Eeg Technologist Name Role Phone Svitlana Olmos MD Primary Care Provider [phone] Reason for Visit * Reason Comments Dental Services Encounter Details Date Type Department Care Team (Late st Contact Info) Description 08/18/2023 Telephone [facility] Call Center Unassigned, Provider [address] [place] [address] Dental Services Social History Tobacco Use Types Packs/Day Years [...] as of this encounter Nursing Notes * Fabiola Batres DDS - 08/18/2023 1:09 PM CDT Spoke w/ pt by phone. Discussed fractured tooth and no decay present. Sachse recommended #3. Advisedto wait w/ crown until after she recovers from her brain surgery. Stressed good brushing and flossing and removal of any food that gets caught in the fracture area. All questions answered. Fabiola Batres DDS 08/18/2023, 1:10 PM documented in this encounter Plan of Treatment Upcoming Encounters Date Type Department Care Team (Late st Contact Info) Description 09/29/2023 8:40 AM CDT Appointment [facility] Neurosurgery/Ortho Spine [address] [place] [address] Nurse Visit 10/03/2023 11:00 AM CDT Appointment [facility] [address] [place] [address] Svitlana Olmos MD [address] [place] [address] [place] [address] 10/20/2023 10:30 AM CDT Appointment [facility] Neurosurgery/Ortho Spine [address] [place] [address] 12/06/2023 10:20 AM CDT Appointment [facility] Neurosurgery/Ortho Spine [address] [place] [address] Jg Munguia MD [address] [place] [address] 01/03/2024 11:20 AM CONSTRUCTION TECH Appointment [facility] [address] [address] [place] [address] documented as of this encounter Visit Diagnoses Not on filedocumented in this encounter Care Teams Eeg Technologist Relationship Specialty Start Date End Date Svitlana Olmos MD [address] [place] [address] PCP - General 05/30/10 documented as of this encounter
--- OUTSIDE RECORDS SUMMARY | 2023-09-28 12:48 | XMS_ITS | Encounter Summary ---
Author Organization [facility] Address [address], [place] [address] Care Team Providers Care Foster Parent Name Role Phone Svitlana Olmos MD Primary Care Provider [phone] Reason for Visit * Reason Comments PRE-OP EXAM Encounter Details Date Type Department Care Team (Late st Contact Info) Description 08/31/2023 10:30 AM CDT Pre-Op Visit [facility] [address] [place] [address] [place] [id number] Svitlana Olmos MD [address] [place] [phone] Preoperative examination (Primary Dx); Meningioma (HRC); Chronic insomnia; Preop examination Social History Tobacco Use Types Packs/Day Years [...] Sign Reading Time Taken Comments Blood Pressure 130/82 08/31/2023 10:18 AM CDT Pulse 79 08/31/2023 10:18 AM CDT Temperature - - Respiratory Rate - - Oxygen Saturation - - Inhaled Oxygen Concentration - - Weight 74.4 kg (164 lb) 08/31/2023 10:18 AM CDT Height 165.1 cm (5' 5) 08/31/2023 10:18 AM CDT Body Mass Index 27.29 08/31/2023 10:18 AM CDT documented in this encounter Patient Instructions * Patient Instructions* Svitlana Olmos MD - 08/31/2023 10:30 AM CDT Follow your individualized medication recommendations as described above. In addition, please stop all [id number] medications including aspirin, ibuprofen (Advil, Motrin), naproxen (Aleve, Naprosyn), herbal remedies and supplements one week prior to procedure unless directed otherwise by your care team. You may continue to take acetaminophen (Tylenol) up to the dayof your procedure. Continue all other medications as currently taking. Let your care team know if you have questions. On the day of your procedure, do not wear any hair product including hair sprays and gels and avoidusing body sprays and deodorants/antiperspirants. Bring with you to the site of the procedure: Any oral appliances or CPAP equipment related to sleep apnea Any other health-related equipment or devices you use daily documented in this encounter Progress Notes * Svitlana Olmos MD - 08/31/2023 10:30 AM CDT Pre-Operative Assessment 08/31/2023 ET Amb PreOp Assessment Details Procedure Meningioma resection Surgeon Dr Munguia [facility] Procedure Date 09/14/2023 Falguni Beavers is a 58 y.o. old female here for pre-operative evaluation for procedure noted above. Found incidentally after head trauma. Patient Active Problem List Diagnosis Date Noted Meningioma (HRC) 06/14/2023 Traumatic complete tear of right rotator cuff 06/07/2023 FHx: colonic polyps 04/27/2022 Overview Note: Colonoscopy completed 03/2022. Repeat in 5 years. 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 Cholecalciferol (VITAMIN D-3 OR) No dose, route, or frequency recorded. ibuprofen (MOTRIN) 600 mg, Oral, Q6H PRN Multiple Vitamins-Minerals (MULTIVITAMIN OR) 1 Tablet, DAILY (NS) ODOR FREE GARLIC OR DAILY (NS) omega-3 fatty acids (FISH OIL) 1000 MG capsule Indications: PN: senna (SENNA LAXATIVE) 8.6 MG tablet 1 Tablet, Oral, DAILY traZODone (DESYREL) 200 mg, Oral, HS triamcinolone acetonide (KENALOG) 0.1 % ointment Topical, BID, Use on hand dermatits, taper to oncea day as improves. Not for use on normal skin, face, or skin folds. varenicline (CHANTIX) 1 mg, Oral, BID, Take after eating with a full glass of water.NOTE:Dispense as maintenance for refills only. 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 Patient is premenopausal. Family History Problem Relation Age of Onset Cancer, Breast Maternal Grandmother br ca age?? after menopause Cancer Mother Dementia Mother Cancer, Ovary Paternal Grandmother Cancer, Colon Negative Family History Diethylstilbestrol Exposure Negative Family History Cancer, Endometrial Negative Family History Review of Systems: 08/31/2023 ET Amb PreOp Assessment Sx Have you had a heart attack in the last 30 days? No Have you experienced chest tightening or chest pressure with activity? Yes Do you wake at night with difficulty breathing? No Do you have swelling in your feet or ankles? No Do you get short of breath if lying flat at night? No Do you hear wheezing or whistling when you breathe? No Have you had a cough, runny nose, or cold symptoms in the last 2 weeks? No Have you tested positive for Covid in the last 6 months? No Do you have a long-standing cough? No Do you snore or are you sleepy during the day? No Do you or close relatives have bleeding or clotting problems? No Have you taken Aspirin, Ibuprofen (Advil) or Naproxen (Aleve) in the last 7 days? No Do you or close relatives have a history of a severe or life-threatening reaction to anesthesia? No Estimated Functional Capacity: Can you climb one flight of stairs, or walk up a gradual uphill without stopping? yes, functional capacity is more than or equal to 4 METS Objective BP 130/82 (BP Location: Right Arm, BP Cuff Size: Regular) Pulse 79 Ht 5' 5 (1.651 m) Wt 164 lb (74.4 kg) BMI 27.29 kg/m?? Physical Exam: General Appearance: alert, well appearing, and in no apparent distress Eyes: lids normal, sclera clear, and conjunctiva normal ENT: oropharynx clear Neck: no lymphadenopathy and no thyromegaly or nodules Heart: regular rate and rhythm and no murmurs, gallops or rubs Lungs: clear to auscultation and no wheezes, rales or rhonchi Abdomen: soft, nondistended, nontender, no palpable masses, and no organomegaly Extremities: no edema Skin: no rashes or worrisome lesions Neurologic: normal speech and no facial droop Data: Labs: Today: 08/31/2023. Lab Results Component Value Date WBC 6.4 08/31/2023 RBC 4.88 08/31/2023 Hemoglobin 13.9 08/31/2023 HCT 41.4 08/31/2023 MCV 84.8 08/31/2023 RDW 13.2 08/31/2023 Platelets 244 08/31/2023 . ECG: Today: 08/31/2023. Sinus rhythm with 1st degree A-V block Inferior infarct (cited on or before 26-DEC-2019) Abnormal ECG When compared with ECG of 26-DEC-2019 18:40, No significant change was found Confirmed by China Sweet ([id number]) on 08/31/2023 11:21:51 AM. Assessment/Plan Patient is medically optimized for planned procedure(s). ICD-10-CM 1. Preoperative examination Z01.818 MRSA MSSA Preop Culture - Staph Aureus Culture Complete Blood Count -W/Diff ECG 12 Lead Outpatient 2. Meningioma (HRC) D32.9 3. Chronic insomnia F51.04 traZODone (DESYREL) 100 MG tablet EKG done due to recent tobacco status. Quit mid May. Does report chest pressure upon leaning forward. CT of the chest done late April shows no abnormalities. No discomfort with walking. EKG today shows Will do a trial of famotidine 20 b.i.d.. Special risks: None Medication recommendations: One week prior to the procedure she will avoid all aspirin, anti-inflammatories, vitamins and supplements. Can take her Chantix with a tiny sip of water on the day of the procedure. Electronically signed by: Svitlana Olmos MD 08/31/2023, 10:52 AM documented in this encounter Plan of Treatment Upcoming Encounters Date Type Department Care Team (Late st Contact Info) Description 09/29/2023 8:40 AM CDT Appointment [facility] Neurosurgery/Ortho Spine [address] [facility] [place] [address] Nurse Visit 10/03/2023 11:00 AM CDT Appointment [facility] [address] [place] [address] Svitlana Olmos MD [facility] [place] [address] 10/20/2023 10:30 AM CDT Appointment [facility] Neurosurgery/Ortho Spine [address] [place] [address] 12/06/2023 10:20 AM CDT Appointment [facility] Neurosurgery/Ortho Spine [address] 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 Appointment [facility] [address] [place] [address] Latha Bruns [facility] [address] [place] [address] documented as of this encounter Procedures Procedure Name Priority Date/Time Associated Diagnosis Comments MRSA/MSSA PRE-OP CULTURE Routine 08/31/2023 11:03 AM CDT Preoperative examination ECG 12 LEAD OUTPATIENT Routine 08/31/2023 10:50 AM CDT Preoperative examination documented in this encounter Results * MRSA MSSA Preop Culture - Staph Aureus Culture (08/31/2023 11:03 AM CDT) Pathologist [facility] Staph aureus Culture (AGUILAR) No Staphylococcus aureus Isolated 09/01/2023 2:32 PM CDT [facility] Swab (Source Required) ENTIRE ANTERIOR NARIS / Unknown Non-blood Collection / Unknown 08/31/2023 11:03 AM CDT 08/31/2023 11:06 AM CDT Svitlana Olmos MD LAB_[address] [address], [facility] * ECG 12 Lead Outpatient (08/31/2023 10:50 AM CDT) Ventricular Rate 61 BPM MUSE GHP Atrial Rate 61 BPM MUSE GHP P-R Interval 214 ms MUSE GHP QRS Duration 84 ms MUSE GHP QT 466 ms MUSE GHP QTc 469 ms MUSE GHP P [place] 57 degrees MUSE GHP R [place] 1 degrees MUSE GHP T [place] 34 degrees MUSE GHP 08/31/2023 10:5 0 AM CDT Narrative MUSE GHP - 08/31/2023 11:21 AM CDT Sinus rhythm [...] AM Svitlana Olmos MD PN ECG ORDERABLES [facility] [address] [place] [address] documented in this encounter Visit Diagnoses Diagnosis Preoperative examination- Primary Preoperative examination, unspecified Meningioma (HRC) Benign neoplasm of cerebral meninges Chronic insomnia Insomnia, unspecified Preop examination Preoperative examination, unspecified documented in this encounter Care Teams Foster Parent Relationship Specialty Start Date End Date Svitlana Olmos MD [address] [place], [place] [id number] PCP - General 05/30/10 documented as of this encounter
--- OUTSIDE RECORDS SUMMARY | 2023-09-28 12:48 | XMS_ITS | Encounter Summary ---
Author Organization [facility] Address [address], [place] [address] Care Team Providers Care Sales Performance Manager Name Role Phone Svitlana Olmos MD Primary Care Provider [phone] Reason for Visit * Reason Comments Hand Problem Elbow Problem * Therapies (Routine) - New Request Specialty Diagnoses / Procedures Referred By Martir seay Referred To Contact Diagnoses Right arm numbness Andrei Landeros, CONTACT ACID PLANT OPERATOR HELPER, PASSENGER VESSEL CHEF [address] [place] [address] Referral ID Status Reason Start Date Expiration Date V isits Requested Visits Authorized [id number] New Request 08/25/2023 08/24/2024 1 1 Encounter Details Date Type Department Care Team (Late st Contact Info) Description 08/25/2023 1:00 PM CDT Office Visit [facility] [address] [place], [place] [address] Mary Jo Roach, OTR/L [address] [place] [id number] Numbness and tingling of right arm (Primary Dx) Social History Tobacco Use Types [...] as of this encounter Progress Notes * Mary Jo Roach, OTR/L - 08/25/2023 1:00 PM CDT Acute Hand Occupational Therapy - Evaluation/Plan of Care Referring Provider: Andrei Landeros Diagnosis: Right arm numbness Orders: Evaluation and treatment. Per PASSENGER VESSEL CHEF note-Please treat for Right arm numbness (median and ulnar) s/p Right Rotator Cuff surgery. Bracing may include wrist splint and elbow anterior stay. Date of Onset: 06/16/2023 Cause: Right RC repair PMH/Precautions: Patient's PMH was reviewed in [facility]. Refer to EMR for past medical history, medications, drug allergies, and precautions. 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 Brain surgery set for 09/14/2023. Living situation: The patient lives independently with adult children and 2 grand kids. Hobbies/leisure/sports: kayaking, throw a softball Functional limitations: Gripping, pinching, carrying, lifting, work/leisure activities, ADLs, writing, buttons SUBJECTIVE: Pt is concerned about the swelling and numbness in her hand. OBJECTIVE: Pain: Pain at rest 0-1/10. Pain with activity 6-7/10. Pain at worst 9/10. Occasional sharp shootingpain. Sensation: The patient reports their sensation is median>ulnar nerve constant numbness and occasional tingling. Edema: Circumferential measurements: All digits and into palm Right 08/25/2023 Left 08/25/2023 MCP's 19.5 cm 18.8 cm AROM: Pt has full hand ROM but trouble with digital ADD/ABD. Strength: Deferred secondary to injury precautions. Outcome Measures: Pt did not complete handout. TREATMENT INTERVENTION: Occupational Therapy Evaluation CPT 78701 (15 minutes untimed) A Low Complexity Occupational Therapy Evaluation was completed. Occupational profile/history: brief history relating to presenting problem. Assessment: 1-3 performance deficits. Clinical decision making: limited number of treatment options. The patient was educated on the condition, planned therapy intervention, and expectations from treatment. Goals were a collaborative effort between the patient and therapist. Risks, benefits, and alternatives to treatment were explained. The patient and/or guardian are in agreement with the care plan. Therapeutic Exercise CPT 37743 (15 minutes) Exercise: The patient was instructed in, performed, and provided with written handout for median nerve glide -05/02 working within restrictions of p/o shoulder restrictions. Shoulder abduction is approximately 30 degrees. Edema Management: - Patient instructed to keep the affected extremity elevated about their heart as able. The patientwas issued compression sleeve (size G)tubigrip with custom elbow insert to prevent flexion to wear at night as pre-alejandro splint felt too tight to Pt. -Pt was fit with isotoner glove size medium and issued to wear at night. Education: The patient was educated on the diagnosis and restrictions. Durable Medical Equipment (15 minutes, untimed) A prefabricated splint was fit for the patient: Joselo, size medium The patient was fit with the splint and instructed in proper application and care. Patient verbalized understanding of splint wear and care. Clinic number was provided if questions or concerns shouldarise. Pt will self purchase. Timed Code Treatment Minutes: 30 Total Treatment Minutes: 45 ASSESSMENT: Therapist's impression: The patient's symptoms are consistent with referring diagnosis. Significant impairments: The patient's functional limitations are due to pain, edema, decreased ROM, decreased strength. Barriers: The patient's mood, orientation, and behavior were appropriate. No barriers to learning noted today. Rehab prognosis is good to achieve stated goals. Functional goals: The patient will be able to sleep at night with splint with minimal to no difficulty in 1-2 weeks. The patient will be able to complete ADL's without numbness and tingling and with minimal to no difficulty in 8 weeks. PLAN: The patient will return for additional therapy. Discharge is planned as functional outcomes are achieved, progress has reached a plateau, or adequate progress is made such that the patient is able toself-manage with their home program. The patient was provided with the clinic number and instructedto call with any questions or concerns. The patient was instructed to return to hand therapy if anycustom orthosis adjustments are needed. Next treatment session: advance ulnar nerve glides, advance median nerve glides, check effectiveness of splints. Visit frequency/duration: 1x/week for 3 weeks for a total of up to 3 visits then Pt will be having grain surgery. Treatment plan: Patient education and training, splint orthosis, pain management, A/AA/PROM, strengthening, edema and scar management, manual therapy and modalities as appropriate. Therapist Signature: STEVEN Rios/Jaguar, T License #[id number] Visit #1 Payor: [facility] / Plan: SELF MANAGED CARE / Product Type: Commercial / documented in this encounter Plan of Treatment Upcoming Encounters Date Type Department Care Team (Late st Contact Info) Description 09/29/2023 8:40 AM CDT Appointment [facility] Neurosurgery/Ortho Spine [address] [facility] [place] [address] Nurse Visit 10/03/2023 11:00 AM CDT Appointment [facility] [address] [place] [address] [place] [address] Svitlana Olmos MD [address] [place] [address] J[place] LYONS [address] 10/20/2023 10:30 AM CDT Appointment [facility] Neurosurgery/Ortho Spine [address] [place] Segal [address] 12/06/2023 10:20 AM CDT Appointment [facility] Neurosurgery/Ortho Spine [address] [facility] [place] 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 LINER Appointment [facility] [address] [place] [address] Latha Burns, [facility] [address] [place], [place] [phone] Scheduled Referrals Name Type Priority Associated Diagnoses Orde r Schedule Hand Therapy Consult Referral Routine Right arm numbness Ordered: 08/25/2023 documented as of this encounter Visit Diagnoses Diagnosis Numbness and tingling of right arm- Primary Disturbance of skin sensation documented in this encounter Care Teams Sales Performance Manager Relationship Specialty Start Date End Date Svitlana Olmos MD [address] [place] [address] PCP - General 05/30/10 documented as of this encounter
--- OUTSIDE RECORDS SUMMARY | 2023-09-28 12:48 | XMS_ITS | Encounter Summary ---
Author Organization [facility] Address [address] [place] [address] Care Team Providers Care Turbine Subassembler Name Role Phone Svitlana Olmos MD Primary Care Provider [phone] Reason for Visit * Reason Comments Shoulder Problem Encounter Details Date Type Department Care Team (Late st Contact Info) Description 08/23/2023 11:15 AM CDT Therapy [facility] [address] [phone] [place] [address] [place] [address] Traumatic tear of right rotator cuff, unspecified tear extent, subsequent encounter (Primary Dx) Social History Tobacco Use Types [...] as of this encounter Progress Notes * César Gleason, PT - 08/23/2023 11:15 AM CDT Physical Therapy Progress Note Visit Number: 5 Referring Provider: Allison Harkins Referring Diagnosis: 1. Right acute rotator cuff tear 2. Right long head biceps disease. 3. Right subacromial bursitis Date of Surgery: 06/16/23 Surgical Procedure: PROCEDURES: 1. Right arthroscopic rotator cuff repair. 2. Right arthroscopic glenohumeral debridement, extensive 3. Right subacromial bursectomy without bony acromioplasty. 4. Right open biceps tenodesis Orders: Evaluate & treat Precautions/Contraindications: - The patient will have no range of motion of the shoulder for 4 weeks but can do active hand, wrist and elbow range of motion. - At 4 weeks, the patient will start passive motion to include FE to 90 and ER to 20. At 6 weeks progress FE and ER as tolerated to include AAROM. Advance to AROM at 8 weeks and strengthening at 3 months. Date of Onset: 05/29/23 Standardized Functional Scores at initial evaluation: History: Reports that she injured her shoulder while trying to hang a heavy mirror on her wall. Shemirror slipped and landed on her. This caused a head injury/black eyes in additional to cuff tear. As part of the work up of her head injury there was a discovery of a benign tumor which will be removed in the future. She is concerned how this surgery could affect her in the presence of arm symptoms. Method of Injury: See above Functional Limitations: post op limitations, stiffness/pain Patient's Therapy Goals: Decrease pain, improve ROM. 7 weeks out from surgery - 08/02/23 8 weeks out from surgery - 08/09/23 SUBJECTIVE: Ruthann reports that she is stretching more frequently and this is going well. Feels like she is making some progress with range of motion and function. OBJECTIVE Current Objective Findings: Shoulder PROM: Flexion - 105 degrees External Rotation - 25 degrees Shoulder AAROM: Flexion - 90 degrees Treatment/Education Today: Therapeutic Exercise (CPT 29214) x 39 minutes: - objective measures above - Supine Elbow Flexion Extension AROM - 10 reps - Circular Shoulder Pendulum with Table Support - 10 reps - Arm Hang x 5 reps - Standing Shoulder External Rotation AAROM with Dowel and towel - 10 reps - standing AROM ER x 10 reps bilaterally - Seated Shoulder Flexion Towel Slide at Table Top - more PROM - 10 reps - Seated Shoulder Flexion Towel Slide at Table Top - with just right hand - 10 reps - Seated Shoulder scaption Towel Slide at Table Top - with just right hand - 10 reps - Seated AAROM shoulder flexion in chair x 10 reps - Supine AAROM shoulder flexion x 10 reps - seated shoulder shrugs and retraction x10 each Timed Code Treatment Minutes: 39 Total Treatment Minutes: 39 Current Home Exercise Program List: Access Code: [email or web address] - Supine Elbow Flexion Extension AROM - 2-3 x daily - 7 x weekly - 1-3 sets - 10 reps - Circular Shoulder Pendulum with Table Support - 2-3 x daily - 7 x weekly - 1-3 sets - 10 reps - Supine Shoulder External Rotation AAROM with Dowel - 2-3 x daily - 7 x weekly - 1-3 sets - 10 reps - Seated Shoulder Flexion Towel Slide at Table Top - 2-3 x daily - 7 x weekly - 1-3 sets - 10 reps - Passive ROM of shoulder - very gentle and limited ASSESSMENT/PROGRESS TOWARD GOALS: Ruthann is doing a good job with HEP. She is stretching more frequently during the day. Nice formwith exercises. Functional Goals/Outcomes: HEP/Independent Management: Demonstrate independence with HEP and self- management following each treatment session ADL's: Perform home management tasks with ease in 8 weeks. [place] hair and face in 8 weeks. Reach overhead to put items on high shelf with ease in 10 weeks. Driving: Use affected upper extremity for driving in 8 weeks. PLAN: Continue per protocol documented in this encounter Plan of Treatment Upcoming Encounters Date Type Department Care Team (Late st Contact Info) Description 09/29/2023 8:40 AM CDT Appointment [facility] Neurosurgery/Ortho Spine [address] JANET Segal [phone] Nurse Visit 10/03/2023 11:00 AM CDT Appointment [facility] [address] [place] [address] Svitlana Olmos MD [address] [place]YONS [address] 10/20/2023 10:30 AM CDT Appointment [facility] [address] [place] [address] 12/06/2023 10:20 AM CDT Appointment [facility] Neurosurgery/Ortho Spine [address] 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
--- OUTSIDE RECORDS SUMMARY | 2023-09-28 12:48 | XMS_ITS | Encounter Summary ---
Author Organization [facility] Address [address], [place] [address] Care Team Providers Care Application Chemist Name Role Phone Svitlana Olmos MD Primary Care Provider [phone] Encounter Details Date Type Department Care Team (Late st Contact Info) Description 08/31/2023 3:30 PM CDT Lab Visit [facility] [address] [place] [phone] Preoperative examination Social History Tobacco Use Types Packs/Day [...] Info) Description 09/29/2023 8:40 AM CDT Appointment [facility] Neurosurgery/Ortho Spine [address] [place] [address] Nurse Visit 10/03/2023 11:00 AM CDT Appointment [facility] [address] [place] [address] Svitlana Olmos MD [address] [place] [address] 10/20/2023 10:30 AM CDT Appointment [facility] Neurosurgery/Ortho Spine [address] [place] [address] 12/06/2023 10:20 AM CDT Appointment [facility] Neurosurgery/Ortho Spine [address] [place] [address] Jg Munguia MD [address] [place], [place] [phone] 01/03/2024 11:20 AM MILL ORDER SCHEDULER Appointment [facility] [address] [place], [place] [phone] [facility] [address] [place], [place] [phone] documented as of this encounter Procedures Procedure Name Priority Date/Time Associated Diagnosis Comments CBC AND DIFFERENTIAL PANEL Routine 08/31/2023 11:06 AM CDT Preoperative examination COMPLETE BLOOD COUNT-W/DIFF Routine 08/31/2023 11:06 AM CDT Preoperative examination documented in this encounter Results * (ABNORMAL) Complete Blood Count-W/Diff (08/31/2023 11:06 AM CDT) WBC 6.4 3.5 - 10.5 x10(9)/L 08/31/2023 11:11 AM CDT [facility] RBC 4.88 3.90 - 5.03 x10(12)/L 08/31/2023 11:11 AM CDT [facility]) Hemoglobin 13.9 12.0 - 15.5 g/dL 08/31/2023 11:11 AM CDT [facility] HCT 41.4 34.9 - 44.5 % 08/31/2023 11:11 AM CDT [facility] MCV 84.8 80.0 - 100.0 fL 08/31/2023 11:11 AM CDT [facility] MCH 28.5 27.6 - 33.3 pg 08/31/2023 11:11 AM CDT [facility]) MCHC 33.6 31.5 - 35.2 g/dL 08/31/2023 11:11 AM CDT [facility] RDW 13.2 11.9 - 15.5 % 08/31/2023 11:11 AM CDT [facility]) Platelets 244 150 - 450 x10(9)/L 08/31/2023 11:11 AM CDT [facility]) Neutrophil Absolute 3.3 1.7 - 7.0 10(9)/L 08/31/2023 11:11 AM CDT [facility] Lymphocyte Absolute 2.0 1.0 - 4.8 10(9)/L 08/31/2023 11:11 AM CDT [facility]) Monocyte Absolute 0.8 0.2 - 0.9 10(9)/L 08/31/2023 11:11 AM CDT [facility]) Eosinophil Absolute 0.2 0.0 - 0.5 10(9)/L 08/31/2023 11:11 AM CDT [facility]) Basophil Absolute 0.0 0.0 - 0.3 10(9)/L 08/31/2023 11:11 AM CDT [facility]) Immature Granulocyte % 0.8(H) 0.0 - 0.5 % 08/31/2023 11:11 AM CDT [facility]) Blood Venipuncture / Unknown 08/31/2023 11:06 AM CDT 08/31/2023 11:07 AM CDT Svitlana Olmos MD LAB_1 [facility] ([facility]) [address] [place] [address], [facility] documented in this encounter Visit Diagnoses Diagnosis Preoperative examination Preoperative examination, unspecified documented in this encounter Care Teams Application Chemist Relationship Specialty Start Date End Date Svitlana Olmos MD [address] [place] [address] PCP - General 05/30/10 documented as of this encounter
--- OUTSIDE RECORDS SUMMARY | 2023-09-28 12:48 | XMS_ITS | Encounter Summary ---
Author Organization [facility] Address [address] [place] [address] Care Team Providers Care Grain Elevator Agent Name Role Phone Svitlana Olmos MD Primary Care Provider [phone] Reason for Visit * Procedure/Equipment (Routine) - Incomplete Specialty Diagnoses / Procedures Referred By Contac t Referred To Contact Diagnoses Meningioma ([facility]) Procedures MR Brain W/WO IV Cont Map Jg Lawler MD [address] [place] [address] Referral ID Status Reason Start Date Expiration Date V isits Requested Visits Authorized [id number] Incomplete 08/12/2023 11/10/2024 1 1 Encounter Details Date Type Department Care Team (Latest Contact Info) Description 09/13/2023 10:00 AM CDT Ancillary Procedure [facility] [address] [place] [address] gJ Munguia MD [address] [place], [place] [phone] Meningioma ([facility]C) Social History Tobacco Use Types Packs/Day Years Used Date Smoking Tobacco: Every Day Cigarettes 1 40.2 Started: 02/28/1979; Last attempted to quit: 05/30/2019 Smokeless Tobacco: Never Comments:Smoking History Pac ks/day: quit 06/13/2023 Alcohol Use Standard Drinks/Week Comments No 0 (1 standard drink = 0.6 oz pur e alcohol) [facility] Utilities Answer Date Recorded In the [...] Info) Description 09/29/2023 8:40 AM CDT Appointment [facility] Neurosurgery/Ortho Spine [address] [place] [address] Nurse Visit 10/03/2023 11:00 AM CDT Appointment [facility] [address] [place], [place] [address]J[place] [address] Svitlana Olmos MD [address] [place] [place] [address] J[place] LYONS [address] 10/20/2023 10:30 AM CDT Appointment [facility] Neurosurgery/Ortho Spine [address] [place] [address] 12/06/2023 10:20 AM CDT Appointment [facility] Neurosurgery/Ortho Spine [address] [place] [address] Jg Munguia MD [address] [place] [address] 01/03/2024 11:20 AM MIXER ATTENDANT Appointment [facility] [address] [place] [phone] [facility] [address] [place] [address] documented as of this encounter Procedures Procedure Name Priority Date/Time Associated Diagnosis Comments INPATIENT TELEMETRY MONITORING Routine 09/15/2023 7:41 AM CDT INPATIENT TELEMETRY MONITORING Routine 09/14/2023 7:55 PM CDT MR BRAIN W/WO IV CONT MAP STEALTH Routine 09/13/2023 10:53 AM CDT Meningioma (HRC) documented in this encounter Results * INPATIENT TELEMETRY MONITORING (09/15/2023 7:41 AM CDT) TELE P-R INTERVAL 0.23 MUSE G[facility] TELE QRS DURATION 0.07 MUSE [facility] TELE R-R INTERVAL 1.15 MUSE G[facility] TELE QT 0.48 MUSE G[facility] TELE QTC 0.44 MUSE [facility] TELE INTERPRETATION Sinus Ck W/ 1st AVB MUSE GHP 09/15/2023 7:41 AM CDT Narrative MUSE [facility] - 09/15/2023 7:46 AM CDT Sinus Ck ??W/ 1st AVB Interface Provider EKG Performing Organization Address [facility] de Phone Number MUSE MARTINP [address] [place] [phone] * INPATIENT TELEMETRY MONITORING (09/14/2023 7:55 PM CDT) [facility] TELE P-R INTERVAL 0.22 MUSE GHP TELE QRS DURATION 0.08 MUSE G[facility] TELE R-R INTERVAL 0.87 MUSE G[facility] TELE QT 0.45 MUSE GHP TELE QTC 0.48 MUSE GHP TELE INTERPRETATION Sinus Rhythm w/1st AVB () MUSE GHP 09/14/2023 7:55 PM CDT Narrative MUSE [facility] - 09/14/2023 8:00 PM CDT Sinus Rhythm ??w/1st AVB () Interface Provider EKG Performing Organization Address [facility] de Phone Number ALICE SALAZARP [address] [place] [address] * MR Brain W/WO IV Cont Map Stealth (09/13/2023 10:53 AM CDT) Anatomical Region Laterality Modality Head Magnetic Resonan ce 09/13/2023 10:5 3 AM CDT Narrative 09/14/2023 7:45 AM CDT EXAM: MR BRAIN WITHOUT AND WITH IV CONTRAST MAP STEALTH [facility] DATE: 09/13/2023 INDICATION: Plan for eyebrow [...] AND WITH IV CONTRAST MAP STEALTH LOCATION: [facility] DATE: 09/13/2023 INDICATION: Plan for eyebrow craniotomy [...] frontallobe edema. Jg Munguia MD [facility] MRI documented in this encounter Visit Diagnoses Diagnosis Meningioma (HRC) Benign neoplasm of cerebral meninges documented in this encounter Administered Medications Inactive Administered Medications - up to 3 most recent administrations Medication Order MAR Action Action Date Dose Rate Site gadobutrol (GADAVIST) 1 MMOL/ML injection 10 mL 10 mL, Intravenous, ONCE (NON-SCHEDULED), Starting on Tue09/13/23 at 1053, Until Tue09/13/23 at 1053, For 1 dose Given 09/13/2023 10:53 AM CDT 10 mL documented in this encounter Care Teams Grain Elevator Agent Relationship Specialty Start Date End Date Svitlana Olmos MD [address] [place] [address] PCP - General 05/30/10 documented as of this encounter
--- OUTSIDE RECORDS SUMMARY | 2023-09-28 12:48 | XMS_ITS | Encounter Summary ---
Author Organization [facility] Address [address] [place] [address] Care Team Providers Care Smelter Charger Name Role Phone Svitlana Olmos MD Primary Care Provider [phone] Reason for Visit * Reason Comments Shoulder Problem Encounter Details Date Type Department Care Team (Late st Contact Info) Description 08/29/2023 2:15 PM CDT Therapy [facility] [address] [address] [place]és[place] [address] [place] [address] Traumatic tear of right rotator cuff, unspecified [...] Progress Notes * César Gleason, PT - 08/29/2023 2:15 PM CDT Physical Therapy Progress Note Visit Number: [...] - 08/09/23 SUBJECTIVE: Ruthann reports that she feels like she is making some slow but steady progress. Trying to stretch more often and feels like it is helpful. OBJECTIVE Current Objective Findings: Shoulder PROM: Flexion - 110 degrees External Rotation - 25 degrees Shoulder AAROM: Flexion - 97 degrees Treatment/Education Today: Therapeutic Exercise (CPT 27992) x 39 minutes: - objective measures above [...] seated shoulder shrugs and retraction x10 each - seated pulleys into flexion and scaption x 10 reps each Timed Code Treatment Minutes: 39 Total Treatment Minutes: 39 Current Home Exercise Program List: Access Code: [email or web address] - Supine Elbow Flexion Extension AROM - [...] frequently during the day. Nice formwith exercises. Range of motion improving. Functional Goals/Outcomes: HEP/Independent Management: Demonstrate independence with HEP and self- management following each treatment session ADL's: Perform home management tasks with ease in 8 weeks. [place] hair and face in 8 weeks. Reach overhead to put items on high shelf with ease in 10 weeks. Driving: Use affected upper extremity for driving in 8 weeks. PLAN: Continue per protocol documented in this encounter Plan of Treatment Upcoming Encounters Date Type Department Care Team (Late st Contact Info) Description 09/29/2023 8:40 AM CDT Appointment [facility] Neurosurgery/Ortho Spine [address] [facility]. [place] [address] Nurse Visit 10/03/2023 11:00 AM CDT Appointment [facility] [address] [place] [address] Svitlana Olmos MD [address] [place] [address] 10/20/2023 10:30 AM CDT Appointment [facility] Neurosurgery/Ortho Spine [address] [place] [address] 12/06/2023 10:20 AM CDT Appointment [facility] Neurosurgery/Ortho Spine [address] [place] [address] Jg Munguia MD [address] [place], [place] [id number] 01/03/2024 11:20 AM FIELD KILN BURNER Appointment [facility] [address] [place], [place] [phone] [facility] [address] [place], [place] [phone] documented as of this encounter Visit Diagnoses Diagnosis Traumatic tear of right rotator cuff, unspecified tear extent, subsequent encounter- Primary documented in this encounter Care Teams Smelter Charger Relationship Specialty Start Date End Date Svitlana Olmos MD [address] [place] [address] PCP - General 05/30/10 documented as of this encounter
--- OUTSIDE RECORDS SUMMARY | 2023-09-28 12:48 | XMS_ITS | Encounter Summary ---
Author Organization [facility] Address [address] [place] [address] Care Team Providers Care Manager Adobe Name Role Phone Svitlana Olmos MD Primary Care Provider [phone] Reason for Visit * Reason Comments Shoulder Problem Encounter Details Date Type Department Care Team (Late st Contact Info) Description 09/05/2023 10:30 AM CDT Therapy [facility] [address] [id number] [place]és[place] [address] [place] [address] Traumatic tear of right rotator cuff, unspecified [...] Progress Notes * César Gleason, PT - 09/05/2023 10:30 AM CDT Physical Therapy Progress Note Visit Number: 6 Referring Provider: Allison Harkins Referring Diagnosis: 1. [...] she feels like she is making some progress each week. Overdid it around the house so a little sore today. OBJECTIVE Current Objective Findings: Shoulder PROM: Flexion - 115 degrees External Rotation - 25 degrees Shoulder AAROM: Flexion - 108 degrees Shoulder AROM: Flexion - 80 degrees Abduction - 45 degrees Treatment/Education Today: Therapeutic Exercise (CPT 53400) x 39 minutes: - objective measures above [...] AAROM shoulder flexion x 10 reps - aarom dowel abduction x10 - seated pulleys into flexion and scaption x 10 reps each Timed Code Treatment Minutes: 39 Total Treatment Minutes: 39 Current Home Exercise Program List: Access Code: [email or web address] - Supine Elbow Flexion Extension AROM - [...] management tasks with ease in 8 weeks. [place] hair and face in 8 weeks. Reach overhead to put items on high shelf with ease in 10 weeks. Driving: Use affected upper extremity for driving in 8 weeks. PLAN: Will likely recheck in about 6-8 weeks from today as she has her surgery coming up. At that point in time, will continue per protocol documented in this encounter Plan of Treatment Upcoming Encounters Date Type Department Care Team (Late st Contact Info) Description 09/29/2023 8:40 AM CDT Appointment [facility]tho [facility] [address] [facility] [place] [address] Nurse Visit 10/03/2023 11:00 AM CDT Appointment [facility] [address] [place] [id number] Svitlana Olmos MD [address] [place] [address] 10/20/2023 10:30 AM CDT Appointment [facility] Neurosurgery/Ortho Spine [address] [place] [address] 12/06/2023 10:20 AM CDT Appointment [facility] Neurosurgery/Ortho Spine [address] [place] [address] Jg Munguia MD [address] [place] [address] 01/03/2024 11:20 AM HISTOLOGY MANAGER Appointment [facility] [address] [place] [address] Latha Burns, [facility] [address] [place] [address] documented as of this encounter Visit Diagnoses Diagnosis Traumatic tear of right rotator cuff, unspecified tear extent, subsequent encounter- Primary documented in this encounter Care Teams Manager Adobe Relationship Specialty Start Date End Date Svitlana Olmos MD [address] [place] [address] PCP - General 05/30/10 documented as of this encounter
--- OUTSIDE RECORDS SUMMARY | 2023-09-28 12:49 | XMS_ITS | Encounter Summary ---
Author Organization [facility] Address [address] [place] [address] Care Team Providers Care Headrig Sawyer Name Role Phone Svitlana Olmos MD Primary Care Provider [phone] Reason for Referral * Procedure/Equipment (Routine) - Incomplete Specialty Diagnoses / Procedures Referred By Contac t Referred To Contact Diagnoses Meningioma (HRC) Procedures CT Head WO IV Cont Jg Lawler MD [address] [facility] [place] [address] Referral ID Status Reason Start Date Expiration Date V isits Requested Visits Authorized [id number] Incomplete 06/22/2023 09/20/2024 1 1 * Procedure/Equipment (Routine) - Incomplete Specialty Diagnoses / Procedures Referred By Contac t Referred To Contact Diagnoses Meningioma (HRC) Procedures MR Brain W/WO IV Cont Map Jg Lawler MD [address] [place] [address] Referral ID Status Reason Start Date Expiration Date V isits Requested Visits Authorized [id number] Incomplete 08/12/2023 11/10/2024 1 1 Encounter Details Date Type Department Care Team (Late st Contact Info) Description 06/22/2023 Telephone [facility] Neurosurgery/Ortho Spine [address] [place] [address] Jg Munguia MD [address] [place] [address] Social History Tobacco Use Types Packs/Day Years [...] as of this encounter Nursing Notes * Ludy Ocasio, RN - 06/22/2023 12:20 PM CDT [facility] MRI and CT prior to surgery transcribed and signed per Dr. Munguia written order. DOS 08/15/[address] Munguia for a eyebrow craniotomy for meningioma resection. Ludy Ocasio RN 06/22/2023, 12:21 PM documented in this encounter Plan of Treatment Upcoming Encounters Date Type Department Care Team (Late st Contact Info) Description 09/29/2023 8:40 AM CDT Appointment [facility]tho Spine [address] [facility] [place] [address] Nurse Visit 10/03/2023 11:00 AM CDT Appointment [facility] [address] [place] [address] Svitlana Olmos MD [address] [place] [address] 10/20/2023 10:30 AM CDT Appointment [facility] Neurosurgery/Ortho Spine [address] [place] [address] 12/06/2023 10:20 AM CDT Appointment [facility] Neurosurgery/Ortho Spine [address] [place] [address] Jg Munguia MD [address] [place] [address] 01/03/2024 11:20 AM ORDER DETAILER Appointment [facility] [address] [place] [address] [facility] [address] [place], [place] [phone] documented as of this encounter Results * CT Head WO IV Cont Stealth (09/14/2023 7:45 AM CDT) Anatomical Region Laterality Modality Head Computed Tomogra phy 09/14/2023 7:45 AM CDT Narrative 09/14/2023 2:37 PM CDT EXAM: CT HEAD WO IV CONT STEALTH LOCATION: [facility] DATE: 09/14/2023 INDICATION: Plan for eyebrow [...] CT HEAD WO IV CONT STEALTH LOCATION: [facility] DATE: 09/14/2023 INDICATION: Plan for eyebrow [...] meningioma. Jg Munguia MD RAD CT * MR Brain W/WO IV Cont Map Stealth (09/13/2023 10:53 AM CDT) Anatomical Region Laterality Modality Head Magnetic Resonan ce 09/13/2023 10:5 3 AM CDT Narrative 09/14/2023 7:45 AM CDT EXAM: MR BRAIN WITHOUT AND WITH IV CONTRAST MAP STEALTH LOCATION: [facility] DATE: 09/13/2023 INDICATION: Plan for [...] AND WITH IV CONTRAST MAP STEALTH LOCATION: [facility] DATE: 09/13/2023 INDICATION: Plan for [...] Meningioma (HRC) Benign neoplasm of cerebral meninges Meningioma (HRC) Benign neoplasm of cerebral meninges documented in this encounter Care Teams Headrig Sawyer Relationship Specialty Start Date End Date Svitlana Olmos MD [address] [place] [address] PCP - General 05/30/10 documented as of this encounter
--- OUTSIDE RECORDS SUMMARY | 2023-09-28 12:49 | XMS_ITS | Encounter Summary ---
Author Organization [facility] Address [address] [place] [address] Care Team Providers Care Metal Tile Setter Name Role Phone Svitlana Olmos MD Primary Care Provider [phone] Reason for Visit * Reason Comments QUESTIONS, GENERAL Pt requesting to spe ak with care team regarding right arm and hand swelling and numbness in hand and fingers postoperatively. Encounter Details Date Type Department Care Team (Late st Contact Info) Description 08/09/2023 Telephone [facility] [address] [place], [place] [phone] Allison Harkins MD [address] [place], [place] [address] QUESTIONS, GENERAL (Pt requesting to speak with care team regarding right arm and hand swelling and numbness in hand and fingers postoperatively.) Social History Tobacco Use Types Packs/Day Years [...] as of this encounter Nursing Notes * Clotilde Sr RN - 08/09/2023 12:42 PM CDT Pt is s/p right arthroscopic rotator cuff repair and open biceps tenodesis on 06/16/[address] Harkins. Pt states she still has the swelling but no pain in her upper inner arm. She has been massaging it and it is still there but not as firm. She had a negative US to rule out DVT on 07/12/23. The swelling started 2-3 weeks after surgery. She states the swelling in her hand and wrist has been the same for about 4-5 weeks. She has been elevating, doing massage, and keeping it out of the sling hanging down, but then her hand gets more swollen. She has numbness and tingling in her palm and fingers, but can move them, feel them, the they are normal color and temperature. It is hard to hold a pen and write. She has been icing her shoulder just at night and moving her hand and wrist constantly all day long, and manipulates her elbow. She states the swelling is the same as when she was seen on 07/29/2023. She is advised to continue to ice and use the sling prn and to be seen next week for follow up per Dr Harkins. She is given an appointment on 08/16/23. She states she understands and will call with any further questions or concerns. * Shonna Babin - 08/09/2023 10:39 AM CDT GENERAL QUESTIONS How may we help you today? Pt requesting to speak with care team regarding right arm and hand swelling and numbness in hand and fingers postoperatively. Pt inquiring about next steps. Please call pt to discuss/advise. Describe your symptoms/concerns: Right arm and hand swelling, right hand and fingers have numbness When did the issue start: About 4-5 weeks. Have you been seen for this recently?: Yes: Date: 07/28 Provider: Alphonse If we are unable to reach you can we leave a detailed message on your voicemail? Yes If we are unable to reach you can we send you a message in LurnQ? No [Clinical Exercise Physiologist/Video Tape Editor: Relay to patient; We make every effort to get back to you sameday, however it may take 1-2 business days depending on the nature of the communication.] documented in this encounter Plan of Treatment Upcoming Encounters Date Type Department Care Team (Late st Contact Info) Description 09/29/2023 8:40 AM CDT Appointment [facility] Neurosurgery/Ortho Spine [address] [place] [address] Nurse Visit 10/03/2023 11:00 AM CDT Appointment [facility] [address] [place] [address] Svitlana Olmos MD [address] [place] [address] 10/20/2023 10:30 AM CDT Appointment [facility] Neurosurgery/Ortho Spine [address] [facility] [place] [address] 12/06/2023 10:20 AM CDT Appointment [facility] Neurosurgery/Ortho Spine [address] [facility] [place] [address] Jg Munguia MD [address] [place] [address] 01/03/2024 11:20 AM RADIOLOGY RN Appointment [facility] [address] [place] [address] Latha Burns, [facility] [address] [place] [address] documented as of this encounter Visit Diagnoses Not on filedocumented in this encounter Care Teams Metal Tile Setter Relationship Specialty Start Date End Date Svitlana Olmos MD [address] [place] [address] PCP - General 05/30/10 documented as of this encounter
--- OUTSIDE RECORDS SUMMARY | 2023-09-28 12:49 | XMS_ITS | Encounter Summary ---
Author Organization [facility] Address [address], [place] [address] Care Team Providers Care Bellman Driver Name Role Phone Svitlana Olmos MD Primary Care Provider [phone] Reason for Visit * Reason Comments RASH Encounter Details Date Type Department Care Team (Late st Contact Info) Description 06/18/2019 Nurse Triage [facility] [address] [place] [phone] Svitlana Olmos MD [address] [place] [phone] RASH Social History Tobacco Use Types Packs/Day Years Used Date Smoking Tobacco: Former Cigarettes 0.3 15 Smokeless Tobacco: Never Comments:Smoking History Pac ks/day: Alcohol Use Standard Drinks/Week Comments No 0 (1 standard drink = 0.6 oz pur e alcohol) Sex and Gender Information Value Date Recorded Sex Assigned at Not on file Gender Identity Not on file Sexual Orientation Not on file documented as of this encounter Nursing Notes * Fany Marie RN - 06/18/2019 12:29 PM CDT Pt has had a dime sized rash on her R hand for 1 1/2 week. She feels it is impetigo. It is itchy, has pustules, yellow scabs. Problem list reviewed as related to this call. Phone visit scheduled Answer Assessment - Initial Assessment Questions 1. APPEARANCE of RASH: Describe the rash. Itchy, pustules, scabs (yellowish), 2. LOCATION: Where is the rash located? R hand 3. NUMBER: How many spots are there? One spot 4. SIZE: How big are the spots? (Inches, centimeters or compare to size of a coin) Size of a dime 5. ONSET: When did the rash start? 1 1/2 weeks ago 6. ITCHING: Does the rash itch? If so, ask: How bad is the itch? (Scale 1- 10; or mild, moderate, severe) Itch, mild to moderate 7. PAIN: Does the rash hurt? If so, ask: How bad is the pain? (Scale 1-10; or mild, moderate, severe) no 8. OTHER SYMPTOMS: Do you have any other symptoms? (e.g., fever) no 9. : Is there any chance you are ? When was your last menstrual period? na Protocols used: RASH OR REDNESS - [id number] * Blanca Rodrigez - 06/18/2019 12:21 PM CDT Symptoms Describe your symptoms (if pain, include location): Rash on hands When did they start? 1.5 weeks Additional comments (related to the above concern): Screening complete. 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 If a prescription is needed, patient would like it filled at the pharmacy listed in Meds & Orders. (Verify the pharmacy patient would like to use for this request is highlighted in blue in Pharmacy Selection under Meds & Orders) Is it okay to leave a detailed message on your voicemail? Yes (Advise caller that the PN call back number will end with [phone] or unknown) For urgent symptoms: Please route and transfer to: Triage Pool (high priority) For routine symptoms: Please route to: Triage Pool (only transfer if caller insists) documented in this encounter Plan of Treatment Upcoming Encounters Date Type Department Care Team (Feliberto Contact Info) Description 09/29/2023 8:40 AM CDT Appointment [facility] Neurosurgery/Ortho Spine [address] [place] [address] Nurse Visit 10/03/2023 11:00 AM CDT [facility]ointment [facility] [place] [address] Svitlana Olmos MD [address] [place] [address] 10/20/2023 10:30 AM CDT Appointment [facility] Neurosurgery/Ortho Spine [address] [place] [address] 12/06/2023 10:20 AM CDT Appointment [facility] Neurosurgery/Ortho Spine [address] [place] [address] Jg Munguia MD [address] [place] [address] 01/03/2024 11:20 AM EXECUTIVE PERSONAL ASSISTANT Appointment [facility] [address] [place] [address] [facility] [address] [place] [address] documented as of this encounter Visit Diagnoses Not on filedocumented in this encounter Additional Health Concerns Infection Onset Date Last Indicated Resolved Time R/O COVID19 08/23/2019 08/23/2019 08/23/2019 9:17 PM CDT R/O COVID19 09/27/2019 09/27/2019 09/27/2019 10:4 6 PM CDT R/O COVID19 08/24/2020 08/24/2020 08/25/2020 5:22 AM CDT R/O COVID19 03/03/2021 03/03/2021 03/04/2021 2:30 AM EXECUTIVE PERSONAL ASSISTANT COVID19 03/03/2021 03/03/2021 03/23/2021 3:17 AM EXECUTIVE PERSONAL ASSISTANT documented as of this encounter Care Teams Bellman Driver Relationship Specialty Start Date End Date Svitlana Olmos MD [address] [place], [place] [address] PCP - General 05/30/10 documented as of this encounter
--- OUTSIDE RECORDS SUMMARY | 2023-09-28 12:49 | XMS_ITS | Encounter Summary ---
Author Organization [employer] Address [address], [place] [address] Care Team Providers Care Flanging Roll Operator Name Role Phone Svitlana Olmos MD Primary Care Provider [phone] Reason for Referral * Therapies (Routine) - New Request Specialty Diagnoses / Procedures Referred By Martir seay Referred To Contact Diagnoses S/P rotator cuff repair Allison Harkins MD [address] [place] [address] Referral ID Status Reason Start Date Expiration Date V isits Requested Visits Authorized [id number] New Request 08/16/2023 08/15/2024 1 1 Scheduling Instructions Your clinician has recommended an appointment with Rehabilitation Services. You can quickly make your appointment online at [email or web address]. You can also call [phone] for help scheduling your appointment. We suggest you call your health insurance company about your coverage and benefits for this appointment. Question Answer Appointment Urgency? Non-Urgent Eval and Treat Eval and Treat Treatment Pain Management Comments Right shoulder/forearm/hand Possible crps Reason for Visit * Reason Comments SHOULDER PAIN right Encounter Details Date Type Department Care Team (Late st Contact Info) Description 08/16/2023 1:00 PM CDT Office Visit [facility] [address] [place] [address] Allison Harkins MD [address] [facility] [place] [address] S/P rotator cuff repair (Primary Dx) Social [...] Progress Notes * Allison Harkins MD - 08/16/2023 1:00 PM CDT CHIEF CONCERN: Status post right arthroscopic rotator cuff repair and open biceps tenodesis DATE OF SURGERY: 06/16/23 HISTORY OF PRESENT ILLNESS: Patient is 2.5 months s/p shoulder surgery above. She notes that she feels she has swelling throughout her arm, noting even pitting edema about her elbow. She feels her fingers are somewhat tight owing to perceived swelling. She has noticed that elevating her arm improves her swelling. She is scheduled to have surgery with Neurosurgery for a meningioma in August. PHYSICAL EXAM: Adult in no acute distress Respirations even and unlabored Focused upper extremity exam: Incisions well healed. Distally CMS intact with full EPL,FPL,and intrinsics. At this time there is no noticeable increase in size on the right hand compared to the left.No notable edema in the right hand. There is some pitting edema over the dorsal surface of the elbow. Right shoulder AROM is FE to 105 and ER to 25. IMAGING: None new ASSESSMENT: 2.5 months status post shoulder surgery above RUE intermittent swelling, consider CRPS Known meningioma PLAN: I reviewed the exam findings and symptoms as patient reported them. I discussed that the appropriate next step is a focus on shoulder ROM. She has been making progress on focused ROM for her shoulder. Her hand/UE exam is not classically consistent with CRPS but some of the symptoms she describes may be. We will involve our Hand Therapy colleagues to assist with work on gentle modalities and treatment. This will be important as she continues work on her shoulder. She is also going to be undergoing surgery for management of her intra-cranial mass. She will return in 2-3 months for her RUE but may adjust depending on her Neurosurgical recovery. Allison Harkins MD documented in this encounter Plan of Treatment Upcoming Encounters Date Type Department Care Team (Late st Contact Info) Description 09/29/2023 8:40 AM CDT Appointment [facility] Neurosurgery/Ortho Spine [address] [facility] [address] Nurse Visit 10/03/2023 11:00 AM CDT Appointment [facility] Medicine [address] [place], [place] [address] [address] Svitlana Olmos MD [address] [place] [address] [place] [address] 10/20/2023 10:30 AM CDT Appointment [facility] Neurosurgery/Ortho Spine [address] [facility] [address] 12/06/2023 10:20 AM CDT Appointment [facility] Neurosurgery/Ortho Spine [address] [place] [address] Jg Munguia MD [address] [place] [address] 01/03/2024 11:20 AM SUPERVISOR COOPERAGE SHOP Appointment [facility] [address] [place] [address] [place] [address] [place] [address] Scheduled Referrals Name Type Priority Associated Diagnoses Orde r Schedule Hand Therapy Consult Referral Routine S/P rotator cuff repair Ordered: 08/16/2023 documented as of this encounter Visit Diagnoses Diagnosis S/P rotator cuff repair- Primary Other postprocedural status documented in this encounter Care Teams Flanging Roll Operator Relationship Specialty Start Date End Date Svitlnaa Olmos MD [address] [place], [place] [address] PCP - General 05/30/10 documented as of this encounter
--- OUTSIDE RECORDS SUMMARY | 2023-09-28 12:49 | XMS_ITS | Encounter Summary ---
Author Organization [facility] Address [address], [place] [address] Care Team Providers Care Cage Maker Machine Name Role Phone Svitlana Olmos MD Primary Care Provider [phone] Reason for Visit * Procedure/Equipment (Routine) - Incomplete Specialty Diagnoses / Procedures Referred By Contac t Referred To Contact Diagnoses Arm mass, right Procedures US VENOUS RIGHT UPPER EXTREM DOPPLER Doe Cuellar PA-C [address] [place] [address] Referral ID Status Reason Start Date Expiration Date V isits Requested Visits Authorized [id number] Incomplete 07/12/2023 10/10/2024 1 1 Encounter Details Date Type Department Care Team (Latest Contact Info) Description 07/12/2023 6:45 PM CDT Ancillary Procedure Brisa Rodriguez [place] [address] Ultrasound [address] [place] [phone] Doe Cuellar PA-C [address] [place] [address] Arm mass, right Social History Tobacco Use Types Packs/Day Years [...] Info) Description 09/29/2023 8:40 AM CDT Appointment [facility] Neurosurgery/Ortho Spine [address] [facility] [place] [address] Nurse Visit 10/03/2023 11:00 AM CDT [facility]ment [facility] [address] Svitlana Olmos MD [address] [place] [address] [place] [address] 10/20/2023 10:30 AM CDT Appointment [facility] Neurosurgery/Ortho Spine [address] [facility] [place] [address] 12/06/2023 10:20 AM CDT Appointment [facility] Neurosurgery/Ortho Spine 295 [facility] [place] [address] Jg Munguia MD [address] [place] [address] 01/03/2024 11:20 AM PERSONAL BANKING ADVISOR Appointment [facility] [address] [place] [address] Latha Burns [facility] [address] [place] [address] documented as of this encounter Procedures Procedure Name Priority Date/Time Associated Diagnosis Comments US VENOUS RIGHT UPPER EXTREM DOPPLER STAT 07/12/2023 6:46 PM CDT Arm mass, right documented in this encounter Results * US VENOUS RIGHT UPPER EXTREM DOPPLER [...] No drainable fluid collection. Narrative Procedure Note Shonna Dewitt MD - 07/12/2023 IMPRESSION COMPARISON: None. [...] for cellulitis. No drainable fluid collection. Doe SAGASTUME documented in this encounter Visit Diagnoses Diagnosis Arm mass, right documented in this encounter Care Teams Cage Maker Machine Relationship Specialty Start Date End Date Svitlana Olmos MD [address] [place] [address] PCP - General 05/30/10 documented as of this encounter
--- OUTSIDE RECORDS SUMMARY | 2023-09-28 12:49 | XMS_ITS | Encounter Summary ---
Author Organization [facility] Address [address] [place] [address] Care Team Providers Care Federal Appellate Law Clerk Name Role Phone Svitlana Olmos MD Primary Care Provider [phone] Reason for Visit * Reason Comments Shoulder Problem Encounter Details Date Type Department Care Team (Late st Contact Info) Description 07/28/2023 9:45 AM CDT Therapy [facility] [address] [phone] [place] [address] [place] [address] Traumatic tear of right rotator cuff, unspecified [...] Progress Notes * César Gleason, PT - 07/28/2023 9:45 AM CDT Physical Therapy Progress Note Visit Number: 2 Referring Provider: Allison Harkins Referring Diagnosis: 1. [...] Patient's Therapy Goals: Decrease pain, improve ROM. 6 weeks out from surgery - 07/28/23 SUBJECTIVE: Ruthann is a new patient to myself. She reports that generally she is recovering well. Gets some pains intermittently. HEP going well. Has been doing her 2 exercises she was initially given. OBJECTIVE Current Objective Findings: Shoulder PROM: Flexion: 85 degrees Abduction: 60 degrees IR: To stomach ER: 5 degrees from neutral Treatment/Education Today: Therapeutic Exercise (CPT 10244) x 45 minutes: - objective measures above - Supine Elbow Flexion Extension AROM - 10 reps - Circular Shoulder Pendulum with Table Support - 10 reps - Arm Hang x 5 reps - Supine Shoulder External Rotation AAROM with Dowel - 10 reps - Seated Shoulder Flexion Towel Slide at Table Top - 10 reps - Seated assisted flexion x 5 reps Timed Code Treatment Minutes: 45 Total Treatment Minutes: 45 Current Home Exercise Program List: Access Code: [email or web address] - Supine Elbow Flexion Extension AROM - [...] and limited ASSESSMENT/PROGRESS TOWARD GOALS: Ruthann is recovering as expected. Tolerated new exercises well in session. Functional Goals/Outcomes: HEP/Independent Management: Demonstrate independence with HEP and self- management following each treatment session ADL's: Perform home management tasks with ease in 8 weeks. Laurel Bloom[employer] hair and face in 8 weeks. Reach overhead to put items on high shelf with ease in 10 weeks. Driving: Use affected upper extremity for driving in 8 weeks. PLAN: Continue per protocol documented in this encounter Plan of Treatment Upcoming Encounters Date Type Department Care Team (Late st Contact Info) Description 09/29/2023 8:40 AM CDT Appointment [facility] Neurosurgery/Ortho Spine [address] [facility]. [place] [address] Nurse Visit 10/03/2023 11:00 AM CDT Appointment [facility] [address] [place] [address] Drive [place] [address] Svitlana Olmos MD [address] [place] [address] [place]ONS [address] 10/20/2023 10:30 AM CDT Appointment [facility] Neurosurgery/Ortho Spine [address] [facility]. [place] [address] 12/06/2023 10:20 AM CDT Appointment [facility] Neurosurgery/Ortho Spine [address] [facility]. [place] [address] Jg Munguia MD [address] [place] [address] 01/03/2024 11:20 AM BUSINESS OFFICE TECHNOLOGY INSTRUCTOR Appointment [facility] [address] [place] [phone] Latha Burns, [facility] [address] [place], [place] [phone] documented as of this encounter Visit Diagnoses Diagnosis Traumatic tear of right rotator cuff, unspecified tear extent, subsequent encounter- Primary documented in this encounter Care Teams Federal Appellate Law Clerk Relationship Specialty Start Date End Date Svitlana Olmos MD [address] [place] [id number] PCP - General 05/30/10 documented as of this encounter
--- OUTSIDE RECORDS SUMMARY | 2023-09-28 12:49 | XMS_ITS | Encounter Summary ---
Author Organization [facility] Address [address] [place] [address] Care Team Providers Care Director Of Marketing Operations Name Role Phone Svitlana Olmos MD Primary Care Provider [phone] Reason for Visit * Reason Comments Problem Focused Exam Broken tooth, no pa in - points to #3 Encounter Details Date Type Department Care Team (Late st Contact Info) Description 07/28/2023 2:00 PM CDT Office Visit [facility] [place] [id number] [place] [address] Brandy Chou, DDS [address] [place] [address] Problem Focused Exam (Broken tooth, no pain - points to #3 ) Social History Tobacco Use Types Packs/Day Years [...] as of this encounter Progress Notes * Brandy Chou DDS - 07/28/2023 2:00 PM CDT DENTAL EMERGENCY VISIT NOTE Subjective Ruthann is a 58 y.o. female who presents for Problem Focused Exam (Broken tooth, no pain - pointsto #3 ) Chief Complaint: No pain, UR filling came off a week ago sharp on the tongue - points to #3 Objective/Assessment The following information was reviewed with the patient: Medical history, Dental history, and Radiographs. Radiographic Interpretation: #3 Normal Diagnosis: Fracture of crown of tooth limited to enamel layer (primary encounter diagnosis) Prognosis: #3 Favorable with a crown #3 MODL amalgam with fx of DL cusp Plan Pt advised will need a crown to properly restore tooth; offered to smooth sharp edge #3, pt accepts. I discussed the Dental findings, Prognosis, and Treatment options with the patient. All questions answered and they expressed understanding. Procedural Pause: Patient identity verified: Yes Treatment plan/site verified with the patient: Yes Instruments/equipment verified: Yes Any medication/allergy contraindications: No Completed Procedures: ANESTHESIA: None used Limited Oral Exam Smooth #3 sharp OL edge Care was assisted by Reda Next Planned Visit: Cr prep #3 Brandy Chou DDS 07/28/2023, 3:00 PM No Medications ordered this encounter documented in this encounter Plan of Treatment Upcoming Encounters Date Type Department Care Team (Late st Contact Info) Description 09/29/2023 8:40 AM CDT Appointment [facility] Neurosurgery/Ortho Spine [address] [facility]. [place] [address] Nurse Visit 10/03/2023 11:00 AM CDT Appointment [facility] [address] [address] Svitlana Olmos MD [address] [place] [address] 10/20/2023 10:30 AM CDT Appointment [facility] Neurosurgery/Ortho Spine [address] [facility]. [place] [address] 12/06/2023 10:20 AM CDT [facility]ointment [facility]Ortho Spine [address] [facility] [place] [address] Jg Munguia MD [address] [place] [address] 01/03/2024 11:20 AM APPLICATION TESTER Appointment [facility] [address] [place], [place] [phone] [facility] [address] [place] [address] Scheduled Orders Name Type Priority Associated Diagnoses Order Schedule 3 3 PORCELAIN CROWN Dental Procedures Routine 1 Occurrences starting 07/28/2023 3 3 CROWN SEAT Dental Procedures Routine 1 O ccurrences starting 07/28/2023 documented as of this encounter Procedures Procedure Name Priority Date/Time Associated Diagnosis Comments FILM-PERIAPICAL FIRST Routine 07/28/2023 2:00 PM CDT Fracture of crown of tooth limited to enamel layer 3 RESTORATIVE PROCEDURE BY REPORT Routine 07/28/2023 2:00 PM CDT Fracture of crown of tooth limited to enamel layer LIMITED ORAL EVALUATION Routine 07/28/19 2:00 PM CDT Fracture of crown of tooth limited to enamel layer documented in this encounter Visit Diagnoses Diagnosis Fracture of crown of tooth limited to enamel layer- Primary documented in this encounter Care Teams Director Of Marketing Operations Relationship Specialty Start Date End Date Svitlana Olmos MD [address] [place] [address] PCP - General 05/30/10 documented as of this encounter
--- OUTSIDE RECORDS SUMMARY | 2023-09-28 12:49 | XMS_ITS | Encounter Summary ---
Author Organization [facility] Address [address], [place] [address] Care Team Providers Care Day Care Home Provider Name Role Phone Svitlana Olmos MD Primary Care Provider [phone] Encounter Details Date Type Department Care Team (Late Contact Info) Description 05/25/2023 E-Visit [facility] [address] [place] [phone] Svitlana Olmos MD [address] [place] [phone] Social History Tobacco Use Types Packs/Day Years Used Date Smoking Tobacco: Former Cigarettes 1 40.2 0 02/28/1979 - 05/30/2019 Smokeless Tobacco: Never Comments:Smoking History Pac [...] Encounters Date Type Department Care Team (Late Contact Info) Description 09/29/2023 8:40 AM CDT Appointment [facility] Neurosurgery/Ortho Spine [address] [place] [address] Nurse Visit 10/03/2023 11:00 AM CDT Appointment [facility] [address] [address] Svitlana Olmos MD [address] [facility] [place] [address] 10/20/2023 10:30 AM CDT Appointment [facility] Neurosurgery/Ortho Spine [address] [place] [address] 12/06/2023 10:20 AM CDT Appointment [facility] Neurosurgery/Ortho Spine [address] [place] [address] Jg Munguia MD [address] [place] [address] 01/03/2024 11:20 AM MARINE ELECTRICIAN APPRENTICE Appointment [facility] [address] [place] [address] Latha Burns, [facility] [address] [place] [address] documented as of this encounter Visit Diagnoses Not on filedocumented in this encounter Care Teams Day Care Home Provider Relationship Specialty Start Date End Date Svitlana Olmos MD [address] [place] [address] PCP - General 05/30/10 documented as of this encounter
--- OUTSIDE RECORDS SUMMARY | 2023-09-28 12:49 | XMS_ITS | Encounter Summary ---
Author Organization [facility] Address [address], [place] [address] Care Team Providers Care Horse Shoer Name Role Phone Svitlana Olmos MD Primary Care Provider [phone] Reason for Visit * Reason Comments Post-Op Problem Splint/ sling issue Encounter Details Date Type Department Care Team (Late st Contact Info) Description 06/20/2023 Telephone [facility] [address] [place], [place] [phone] Allison Harkins MD [address] [place] [address] Post-Op Problem (Splint/ sling issue) Social History Tobacco Use Types Packs/Day Years [...] as of this encounter Nursing Notes * Nicole Montana RN - 06/20/2023 11:14 AM CDT Patient scheduled for a sling adjustment today. * Muna Putnam - 06/20/2023 9:06 AM CDT GENERAL QUESTIONS How may we help you today? Pt request a call back Describe your symptoms/concerns: Pt states she needs her splint put on the correct way. Pt states yesterday her friend took it off to change the surgical bandage and now it's causing a lot of discomfort. Pt states her shoulder pain is constant now which is possibly due to the sling/ splint not on correctly. Please call to advise When did the issue start: 06-20-23 Have you been seen for this recently?: Yes: Date: 06-16-23 surgery date Provider: Dr. Harkins If we are unable to reach you can we leave a detailed message on your voicemail? Yes If we are unable to reach you can we send you a message in Bevii? No [Banking Teacher/Cleat Blanker: Relay to patient; We make every effort to get back to you sameday, however it may take 1-2 business days depending on the nature of the communication.] documented in this encounter Plan of Treatment Upcoming Encounters Date Type Department Care Team (Late st Contact Info) Description 09/29/2023 8:40 AM CDT Appointment [facility] Neurosurgery/Ortho Spine 295 [facility]. [place] [address] Nurse Visit 10/03/2023 11:00 AM CDT Appointment [facility] [address] [place] [address] Svitlana Olmos MD [address] [place] [address] 10/20/2023 10:30 AM CDT Appointment [facility] Neurosurgery/Ortho Spine [address] [place] [address] 12/06/2023 10:20 AM CDT Appointment [facility] Neurosurgery/Ortho Spine [address] [facility] [place] [address] Jg Munguia MD [address] [place] [address] 01/03/2024 11:20 AM MEDICAL LABORATORY TECHNICAL OFFICER Appointment [facility] [address] [place] [address] Latha Burns, [facility] [address] [place] [address] documented as of this encounter Visit Diagnoses Not on filedocumented in this encounter Care Teams Horse Shoer Relationship Specialty Start Date End Date Svitlana Olmos MD [address] [place] [address] PCP - General 05/30/10 documented as of this encounter
--- OUTSIDE RECORDS SUMMARY | 2023-09-28 12:49 | XMS_ITS | Encounter Summary ---
Author Organization [facility] Address [address], [place] [address] Care Team Providers Care Street Light Lamp Cleaner Name Role Phone Svitlana Olmos MD Primary Care Provider [phone] Reason for Referral * Procedure/Equipment (Routine) - Incomplete Specialty Diagnoses / Procedures Referred By Contgary t Referred To Contact Diagnoses Arm mass, right Procedures US VENOUS RIGHT UPPER EXTREM DOPPLER Doe Cuellar PA-C [address] [place] [address] Referral ID Status Reason Start Date Expiration Date V isits Requested Visits Authorized [id number] Incomplete 07/12/2023 10/10/2024 1 1 Reason for Visit * Reason Comments Lump Encounter Details Date Type Department Care Team (Late st Contact Info) Description 07/12/2023 5:40 PM CDT Office Visit [facility] [address] [place] [phone] Doe Cuellar PA-C [address] [place], [place] [phone] Arm mass, right; Arm edema Social History Tobacco Use Types Packs/Day Years [...] Sign Reading Time Taken Comments Blood Pressure 119/79 07/12/2023 5:35 PM CDT Pulse - - Temperature 37.2 ??C (99 ??F) 07/12/2023 5:35 PM CDT Respiratory Rate 12 07/12/2023 5:35 PM CDT Oxygen Saturation 97% 07/12/2023 5:35 PM CDT Inhaled Oxygen Concentration - - Weight - - Height - - Body Mass Index - - documented in this encounter Progress Notes * Doe Cuellar PA-C - 07/12/2023 5:40 PM CDT Began: Today Sx: Pt had RIGHT rotator cuff surgery on 06/16/23. Arm is immobilized, patient wear sling shot splint at all times. Has had swelling, numbness, and tingling for 2 weeks, surgeon is not aware of this.Today noticed hard lump on inner part of RIGHT upper arm. Pt is concerned about a blood clot. DENIES: Chest pain, SOB, no hx of DVT Home Tx: Ice packs on shoulder RMH: None Patient requests an excuse letter for work/school: No Patient presents to the urgent care complaining of a lump on her right arm that she noticed today. She had rotator cuff surgery on her right shoulder on June 15. Her arm is currently immobilized. Patient has been wearing the sling at all times. She has had swelling and numbness along with tingling in her fingertips for the past 2 weeks. Today she noticed a hard lump on the inner part of her right upper arm. She is concerned about a possible blood clot. She denies chest pain or shortness a breath. She denies a history of blood clots. She recently started physical therapy. Remainder review of systems is negative. Past Medical History: Patient Active Problem List Diagnosis Recurrent cold sores Endometrial polyp Chronic insomnia FHx: colonic polyps Traumatic complete tear of right rotator cuff Meningioma (HRC) Adverse Drug Reactions: Patient has no known allergies. Medications: Calcium Carbonate, Cholecalciferol, Fish Oil, Garlic, Multiple Vitamin, Vitamin K, acetaminophen, acyclovir, ascorbic acid, gabapentin, hydrOXYzine HCl, ibuprofen, oxyCODONE, senna, traZODone, triamcinolone acetonide, and varenicline Family History: Family History Problem Relation Age of Onset Cancer, Breast Maternal Grandmother br ca age?? after menopause Cancer Mother Dementia Mother Cancer, Ovary Paternal Grandmother Cancer, Colon Negative Family History Diethylstilbestrol Exposure Negative Family History Cancer, Endometrial Negative Family History Social History: Social History Tobacco Use Smoking status: Every Day Current packs/day: 0.00 Average packs/day: 1 pack/day for 40.2 years (40.2 ttl pk-yrs) Types: Cigarettes Start date: 02/28/1979 Last attempt to quit: 05/30/2019 Years since quittin.1 Smokeless tobacco: Never Tobacco comments: Smoking History Packs/day: quit 06/13/2023 Vaping Use Vaping status: Never Used Substance Use Topics Alcohol use: No Drug use: No Review of Systems: All systems were reviewed and found to be negative except as noted above. OBJECTIVE: General: NAD Skin: Mucous membranes are moist, no sign of dehydration. Head: Normocephalic. Eyes: PERRLA, full EOM. External exams normal. Ears: Normal pinnae, canals. TM's:[normal] Nose: Patent, without deformity. Throat: Moist mucous membranes without lesions, erythema, or exudate. Respiratory: Normal respiratory effort. Lungs are clear with good breath sounds. Heart: RR without murmurs, rubs, or gallops. Extremities: Patient has a firm, palpable mass over her right mid triceps. I am unable to evaluate range of motion in the patient shoulder or elbow due to her recent surgery. Pulses are intact and capillary refill is less than 3 seconds. Vital Signs: BP 119/79 (BP Location: Left Arm, BP Cuff Size: Regular) Temp 37.2 ??C (99 ??F) (Oral) Resp 12 SpO2 97% Labs: No results found for any visits on 07/12/23. X-Rays: US VENOUS RIGHT UPPER EXTREM DOPPLER Result Date: 07/12/2023 COMPARISON: None. CLINICAL HISTORY: lump on right arm after surgery FINDINGS: The deep venous system of the right upper extremity was visualized using color- flow Doppler technique. The internal jugular, subclavian, axillary and brachial veins were compressible where sampled. Normal venous velocity signals were noted in the internal jugular and subclavian veins. Cephalic and basilic veins were compressible. Skin thickening and subcutaneous edema in the area of the lump indicated by the patient IMPRESSION: 1. No evidence of deep venous thrombosis. 2. Skin thickening and subcutaneous edema in the area of clinical concern, correlate clinically for cellulitis. No drainable fluid collection. ASSESSMENT: 1. Arm mass, right 2. Arm edema Medical Decision Makin-year-old female presenting with a lump on her right inner upper arm. She recently had rotator cuff surgery on June 15. She noticed the lump today. It is slightly tenderto touch. She has not noticed any redness to the skin. She denies a history of blood clots. She denies chest pain or shortness a breath. Physical exam shows a firm mass over her mid right tricep. I am unable to assess range of motion due to recent surgery. A duplex venous ultrasound of the right upper extremity was obtained which showed no evidence of DVT. There was some skin thickening and subcutaneous edema noted. I discussed the case with ortho. They thought this was most likely dependent edema from the previous surgery and her arm sling. They suggested then no treatment was necessary at this time. Patient should continue to follow up with her orthopedic surgeon as scheduled. PLAN: Orders Placed This Encounter US VENOUS RIGHT UPPER EXTREM DOPPLER There are no Patient Instructions on file for this visit. No orders of the defined types were placed in this encounter. RTC p.r.n. Total visit time was 25 minutes documented in this encounter Nursing Notes * Freya Ferreira RN - 07/12/2023 5:40 PM CDT Began: Today Sx: Pt had RIGHT rotator cuff surgery on 06/16/23. Arm is immobilized, patient wear sling shot splint at all times. Has had swelling, numbness, and tingling for 2 weeks, surgeon is not aware of this.Today noticed hard lump on inner part of RIGHT upper arm. Pt is concerned about a blood clot. DENIES: Chest pain, SOB, no hx of DVT Home Tx: Ice packs on shoulder RMH: None Patient requests an excuse letter for work/school: No documented in this encounter Plan of Treatment Upcoming Encounters Date Type Department Care Team (Late st Contact Info) Description 09/29/2023 8:40 AM CDT Appointment [facility] Neurosurgery/Ortho Spine [address] [facility] [place] [address] Nurse Visit 10/03/2023 11:00 AM CDT Appointment [facility] [address] [place] [address] Svitlana Olmos MD [address] [place] [address] [place] [address] 10/20/2023 10:30 AM CDT Appointment [facility] Neurosurgery/Ortho Spine [address] [facility] [place] [address] 12/06/2023 10:20 AM CDT Appointment [facility] Neurosurgery/Ortho Spine [address] [place] [place] [address] Jg Munguia MD [address] [place] [address] 01/03/2024 11:20 AM PHARMACOVIGILANCE SPECIALIST Appointment [facility] Dental [facility] [address] [place] [address] [place] [address] [place] [address] documented as of this encounter Results * US VENOUS RIGHT [...] for cellulitis. No drainable fluid collection. Doe JIMENEZ US documented in this encounter Visit Diagnoses Diagnosis Arm mass, right Arm edema Edema Arm mass, right documented in this encounter Care Teams Street Light Lamp Cleaner Relationship Specialty Start Date End Date Svitlana Olmos MD [address] [place], [place] [address] PCP - General 05/30/10 documented as of this encounter
--- OUTSIDE RECORDS SUMMARY | 2023-09-28 12:49 | XMS_ITS | Encounter Summary ---
Author Organization [facility] Address [address], [place] [address] Care Team Providers Care Robotic Welding Operator Name Role Phone Svitlana Olmos MD Primary Care Provider [phone] Reason for Visit * Reason Comments Questions, Aftercare Sling adjustment Encounter Details Date Type Department Care Team (Late st Contact Info) Description 06/20/2023 1:00 PM CDT Office Visit [facility] [address] [place], [place] [phone] Nurse, Dominic Brionesp Brendan S/P shoulder surgery (Primary Dx) Social History Tobacco Use Types [...] as of this encounter Progress Notes * Nicole Montana RN - 06/20/2023 1:00 PM CDT DATE OF PROCEDURE: 06/16/23 STAFF SURGEON: Allison Harkins MD PROCEDURES: 1. Right arthroscopic rotator cuff repair. 2. Right arthroscopic glenohumeral debridement, extensive 3. Right subacromial bursectomy without bony acromioplasty. Patient comes in for sling adjustment. 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 Sling was adjusted. Patient felt much better. CMS good. Incision shows good healing. Patient's pain is controlled with the oxycodone which she has been mostly taking at night. She is requesting a refill. Pended to [facility]. Patient will call for questions or concerns. documented in this encounter Plan of Treatment Upcoming Encounters Date Type Department Care Team (Late st Contact Info) Description 09/29/2023 8:40 AM CDT Appointment [facility] Neurosurgery/Ortho Spine [address] [place] [address] Nurse Visit 10/03/2023 11:00 AM CDT Appointment [facility] [address] [address] Svitlana Olmos MD [address] [place] [address] JANET LYONS [address] 10/20/2023 10:30 AM CDT Appointment [facility] Neurosurgery/Ortho Spine [address] [place] [address] 12/06/2023 10:20 AM CDT Appointment [facility]tho [facility]ine [address] [facility] [place] [address] Jg Munguia MD [address] [place] [address] 01/03/2024 11:20 AM PACKAGE DYE STAND LOADER Appointment [facility] Dental [facility] [address] [place] [address] Latha Burns, [facility] [address] [place] [address] documented as of this encounter Visit Diagnoses Diagnosis S/P shoulder surgery- Primary Other postprocedural status documented in this encounter Care Teams Robotic Welding Operator Relationship Specialty Start Date End Date Svitlana Olmos MD [address] [place] [address] PCP - General 05/30/10 documented as of this encounter
--- OUTSIDE RECORDS SUMMARY | 2023-09-28 12:49 | XMS_ITS | Encounter Summary ---
Author Organization [facility] Address [address] [place] [address] Care Team Providers Care Bristle Machine Operator Name Role Phone Svitlana Olmos MD Primary Care Provider [phone] Reason for Visit * Reason Comments Shoulder Problem Encounter Details Date Type Department Care Team (Late st Contact Info) Description 08/04/2023 1:15 PM CDT Therapy [facility] [address] [address] [place] [address] [place], [place] [phone] Traumatic tear of right rotator cuff, unspecified [...] as of this encounter Progress Notes * Janeen Cisneros, PT - 08/04/2023 1:15 PM CDT Physical Therapy Progress Note Visit Number: 3 Referring Provider: Allison Harkins Referring Diagnosis: 1. [...] 7 weeks out from surgery - 08/02/23 SUBJECTIVE: Ruthann is a new patient to this PT. She is accompanied by her daughter today. She reports that generally she is recovering well. Gets some pains intermittently. She's been trying to go without thesling, but still has to use it often. She has it on today. OBJECTIVE Current Objective Findings: Shoulder PROM: Not formally measured today Treatment/Education Today: Therapeutic Exercise (CPT 77485) x 39 minutes: - objective measures above - Supine Elbow Flexion Extension AROM - 10 reps - Circular Shoulder Pendulum with Table Support - 10 reps - Arm Hang x 5 reps - Supine Shoulder External Rotation AAROM with Dowel - 3 x 10 reps, able to achieve very little ER,5-10 degrees at most - Seated Shoulder Flexion Towel Slide at Table Top - 10 reps - Supine PROM shoulder flexion x 5 reps, very small ROM today, pt not very comfortable lying flat, only 40-50 degrees of flexion at a time - seated shoulder shrugs and retraction x10 each Timed Code Treatment Minutes: 39 Total Treatment Minutes: 39 Current Home Exercise Program List: Access Code: [email or web address] - Supine Elbow Flexion Extension AROM - [...] limited ASSESSMENT/PROGRESS TOWARD GOALS: Ruthann is recovering well, very limited ROM today and she is concerned about the swelling in herarm and hand. Pt will benefit from ongoing skilled PT intervention to address remaining deficits and maximize return to prior level of function. Functional Goals/Outcomes: HEP/Independent Management: Demonstrate independence with HEP and self- management following each treatment session ADL's: Perform home management tasks with ease in 8 weeks. [place] hair and face in 8 weeks. Reach overhead to put items on high shelf with ease in 10 weeks. Driving: Use affected upper extremity for driving in 8 weeks. PLAN: Continue per protocol documented in this encounter Plan of Treatment Upcoming Encounters Date Type Department Care Team (Late st Contact Info) Description 09/29/2023 8:40 AM CDT Appointment [facility] Neurosurgery/Ortho Spine [address] [place] [address] Nurse Visit 10/03/2023 11:00 AM CDT Appointment [facility] [address] [place] [address] Svitlana Olmos MD [address] [place] [address] 10/20/2023 10:30 AM CDT Appointment [facility] Neurosurgery/Ortho Spine [address] [place] [address] 12/06/2023 10:20 AM CDT Appointment [facility] Neurosurgery/Ortho Spine [address] [place] [address] Jg Munguia MD [address] [place] [address] 01/03/2024 11:20 AM PASTING MACHINE OPERATOR Appointment [facility] Dental [facility] [address] [place] [address] [facility] [address] [place], [place] [phone] documented as of this encounter Visit Diagnoses Diagnosis Traumatic tear of right rotator cuff, unspecified tear extent, subsequent encounter- Primary documented in this encounter Care Teams Bristle Machine Operator Relationship Specialty Start Date End Date Svitlana Olmos MD [address] [place] [address] PCP - General 05/30/10 documented as of this encounter
--- OUTSIDE RECORDS SUMMARY | 2023-09-28 12:49 | XMS_ITS | Encounter Summary ---
Author Organization [facility] Address [address] [place] [address] Care Team Providers Care Aquatics Instructor Name Role Phone Svitlana Olmos MD Primary Care Provider [phone] Reason for Visit * Reason Comments Problem Focused Exam Encounter Details Date Type Department Care Team (Late Contact Info) Description 07/21/2023 Telephone [facility] [address] [id number] Fabiola Batres, S [address] [place] [address] Problem Focused Exam Social History Tobacco Use Types Packs/Day Years [...] 09/29/2023 8:40 AM CDT Appointment [facility] Neurosurgery/Ortho Spine [address] [place] [address] Nurse Visit 10/03/2023 11:00 AM CDT Appointment [facility] [address] [address] Svitlana Olmos MD [address] [facility] [place] [address] 10/20/2023 10:30 AM CDT Appointment [facility] Neurosurgery/Ortho Spine [address] [place] [address] 12/06/2023 10:20 AM CDT Appointment [facility] Neurosurgery/Ortho Spine [address] [place] [address] Jg Munguia MD [address] [place] [address] 01/03/2024 11:20 AM PUBLIC HEALTH DOCTOR Appointment [facility] Dental [facility] [address] [place] [address] Latha Burns, [facility] [address] [place], [place] [phone] documented as of this encounter Visit Diagnoses Not on filedocumented in this encounter Care Teams Aquatics Instructor Relationship Specialty Start Date End Date Svitlana Olmos MD [address] [place] [address] PCP - General 05/30/10 documented as of this encounter
--- OUTSIDE RECORDS SUMMARY | 2023-09-28 12:49 | XMS_ITS | Encounter Summary ---
Author Organization [facility] Address [address] [place] [address] Care Team Providers Care Insulation Hoseman Name Role Phone Svitlana Olmos MD Primary Care Provider [phone] Reason for Visit * Reason Comments Questions Surgery Encounter Details Date Type Department Care Team (Late st Contact Info) Description 08/02/2023 Telephone [facility] Neurosurgery/Ortho Spine [address] [facility] [place], [place] [phone] Jg Munguia MD [address] [place] [address] Questions (Surgery/) Social History Tobacco Use Types Packs/Day Years [...] as of this encounter Nursing Notes * Nury Ramon RN - 08/03/2023 2:02 PM CDT Spoke with pt to answer various post op preparation questions. She will have [place] paperwork faxed to us for completion. Nury Ramon, RN 08/03/2023, 2:04 PM * iLllie Bolanos - 08/02/2023 2:39 PM CDT Reason for call: Questions about upcoming surgery Details given by patient: Patient states she has questions about surgery post-op and what she should expect during the recovery period. Please call patient and advise. Patient's preferred call back number: [phone] Can staff leave a DETAILED voicemail? Yes Patient last seen provider in office or telemedicine: 06/14/2023 Lillie Samuel, Palm And Back Forger 08/02/2023 2:41 PM documented in this encounter Plan of Treatment Upcoming Encounters Date Type Department Care Team (Late st Contact Info) Description 09/29/2023 8:40 AM CDT Appointment [facility]tho Spine [address] [place] [address] Nurse Visit 10/03/2023 11:00 AM CDT Appointment [facility] J[place] Soriano [address] Svitlana Olmos MD [facility] WILLIE [place]YONS [address] 10/20/2023 10:30 AM CDT Appointment [facility] Neurosurgery/Ortho Spine [address] [facility]. [place]al [address] 12/06/2023 10:20 AM CDT Appointment [facility] Neurosurgery/Ortho Spine [address] [facility] [place] [address] Jg Munguia MD [address] [place] [address] 01/03/2024 11:20 AM MUSEUM REGISTRAR Appointment [facility] [place] [address] [place] [address] Latha Burns, [facility] [address] [place], [place] [phone] documented as of this encounter Visit Diagnoses Not on filedocumented in this encounter Care Teams Insulation Hoseman Relationship Specialty Start Date End Date Svitlana Olmos MD [address] [place] [address] PCP - General 05/30/10 documented as of this encounter
--- OUTSIDE RECORDS SUMMARY | 2023-09-28 12:49 | XMS_ITS | Encounter Summary ---
Author Organization [facility] Address [address] [place] [address] Care Team Providers Care Press Operator Carbon Blocks Name Role Phone Svitlana Olmos MD Primary Care Provider [phone] Encounter Details Date Type Department Care Team (Late Contact Info) Description 06/16/2023 Notes/Orders [facility] [address] [place] [address] Allison Harkins MD [address] [place] [id number] Social History Tobacco Use Types Packs/Day Years [...] Description 09/29/2023 8:40 AM CDT Appointment [facility] Neurosurgery/Ortho Spine [address] [facility] [place] [address] Nurse Visit 10/03/2023 11:00 AM CDT Appointment [facility] [address] [address] Svitlana Olmos MD [address] [place] [address] 10/20/2023 10:30 AM CDT Appointment [facility] Neurosurgery/Ortho Spine [address] [place] [address] 12/06/2023 10:20 AM CDT Appointment [facility] Neurosurgery/Ortho Spine [address] [place] [address] Jg Munguia MD [address] [place] [address] 01/03/2024 11:20 AM SENIOR C SOFTWARE ENGINEER Appointment [facility] Dental [facility] [address] [place] [address] Latha Burns [facility] [address] [place] [address] documented as of this encounter Visit Diagnoses Not on filedocumented in this encounter Care Teams Press Operator Carbon Blocks Relationship Specialty Start Date End Date Svitlana Olmos MD [address] [place] [address] PCP - General 05/30/10 documented as of this encounter
--- OUTSIDE RECORDS SUMMARY | 2023-09-28 12:49 | XMS_ITS | Encounter Summary ---
Author Organization [facility] Address [address], [place] [address] Care Team Providers Care Lining Finisher Name Role Phone Svitlana Olmos MD Primary Care Provider [phone] Reason for Visit * Reason Comments Shoulder Problem * Therapies (Routine) - New Request Specialty Diagnoses / Procedures Referred By Martir seay Referred To Contact Diagnoses Traumatic complete tear of right rotator cuff, initial encounter Allison Harkins MD [address] [place] [address] Referral ID Status Reason Start Date Expiration Date V isits Requested Visits Authorized [id number] New Request 06/28/2023 06/27/[phone] Encounter Details Date Type Department Care Team (Late st Contact Info) Description 07/18/2023 10:30 AM CDT Therapy [facility] Therapy [address] [place] [place], [place] [address] Sherman Mccallum, PT [address] [place], [place] [address] Traumatic tear of right rotator cuff, unspecified [...] as of this encounter Progress Notes * Sherman Mccallum, PT - 07/18/2023 10:30 AM CDT Physical Therapy Post-Op Shoulder Evaluation/Plan of Care [facility] Referring Provider: Allison Harkins Referring Diagnosis: 1. [...] Patient's Therapy Goals: Decrease pain, improve ROM. SUBJECTIVE: Past Medical History: See EMR for details regarding past medical history, medications and drug allergies. History is unremarkable. Review of Systems: Past Medical History: Diagnosis Date Dermatitis Eyelid #*LW 3 01/28/2006 Multiparity [place] w Preg #*LW 2 08/27/2003 Tobacco Abuse #*LW 1 08/04/2002 Varicella No past surgical history on file. OBJECTIVE: General: Mood, orientation and behavior were appropriate. Patient was alert and oriented. Posture/Alignment: guarded Shoulder PROM: Flexion: Reduced Abduction: reduced IR: To stomach ER: 10 deg past neutral TREATMENT TODAY: Physical Therapy Evaluation (CPT 55839): An evaluation was performed. The patient was determined tohave low complexity based on history, examination, clinical presentation of the patient and the PT's clinical decision making. The patient was educated on the condition, planned therapy intervention and expectations from treatment. Goals were a collaborative effort of the therapist and patient. Therapeutic Exercise (CPT 26844) x 24 minutes: Access Code: [email or web address] - Supine Elbow Flexion Extension AROM - [...] of shoulder - very gentle and limited Timed Code Treatment Minutes: 24 Total Treatment Minutes: 40 Medicare Unit Tracking: Plan for next treatment session: ROM/mobilities to reduce guarding and pain Education/Handouts: Diagnosis Education Response to treatment: Good understanding of HEP ASSESSMENT: Therapist Impression: Ruthann presents to PT with a significant limitation and pain with ROM. Sheis markedly guarded. Opted to give her more gentle AAROM as this will allow her better control and hopefully ease some of the guarding response. Modalities and gentle motions may be needed in the future to break the guarding response. Barriers to Learning: none Rehab Prognosis: Good PLAN: Planned Intervention/Education: Evaluation, Re-Evaluation, Education, Therapeutic Exercise, Manual Therapy, Neuromuscular Re-education, Self Care/Home Management, Gait Training, Therapeutic Activities, Isokinetic/Performance Testing, Aquatic THerapy, Ice, Heat PT Frequency/Duration: 1 x/week for 16 weeks for a total of 16 visits Discharge Plan: Goal achievement, goal achievement with home exercise program or if progress plateaus. Informed Consent: Risks, benefits and alternatives to treatment have been explained. Patient and/orfamily in agreement with care plan. EXPECTED FUNCTIONAL OUTCOMES/GOALS: HEP/Independent Management: Demonstrate independence with HEP and self- management following each treatment session ADL's: Perform home management tasks with ease in 8 weeks. [place] hair and face in 8 weeks. Reach overhead to put items on high shelf with ease in 10 weeks. Driving: Use affected upper extremity for driving in 8 weeks. Evaluation and Plan of Care completed by: Sherman Mccallum, JOYCE 10:38 AM 07/18/2023 The restoration technician is completed by the therapist and the referring clinician's electronic signature certifies medical necessity for the plan above. documented in this encounter Plan of Treatment Upcoming Encounters Date Type Department Care Team (Late st Contact Info) Description 09/29/2023 8:40 AM CDT Appointment [facility] Neurosurgery/Ortho Spine [address] [place] [address] Nurse Visit 10/03/2023 11:00 AM CDT Appointment [facility] [address] [place] [address] JAN[address] Pena [address] Svitlana Olmos MD [address] [place] [address] [address]YONS [address] 10/20/2023 10:30 AM CDT Appointment [facility] Neurosurgery/Ortho Spine [address] [place] [place] [address] 12/06/2023 10:20 AM CDT Appointment [facility] Neurosurgery/Ortho Spine [address] [facility] [place] [address] Jg Munguia MD [address] [place] [address] 01/03/2024 11:20 AM CERAMIC ARTIST Appointment Critical access hospital Dental [facility] [address] [place] [address] Latha Burns, [facility] [id number] [place] [address] Scheduled Referrals Name Type Priority Associated Diagnoses Orde r Schedule Physical Therapy Referral Routine Traumatic complete tear of right rotator cuff, initial encounter Ordered: 06/28/2023 documented as of this encounter Visit Diagnoses Diagnosis Traumatic tear of right rotator cuff, unspecified tear extent, subsequent encounter- Primary documented in this encounter Care Teams Lining Finisher Relationship Specialty Start Date End Date Svitlana Olmos MD [address] [place] [address] PCP - General 05/30/10 documented as of this encounter
--- OUTSIDE RECORDS SUMMARY | 2023-09-28 12:49 | XMS_ITS | Encounter Summary ---
Author Organization [facility] Address [address] [place] [address] Care Team Providers Care Principal Biostatistician Name Role Phone Svitlana Olmos MD Primary Care Provider [phone] Reason for Visit * Reason Comments Post-Op Check Encounter Details Date Type Department Care Team (Late st Contact Info) Description 07/29/2023 10:30 AM CDT Office Visit [facility] [address] [place] [address] Alphonse Zhong OA [address] [place] [address] S/P rotator cuff repair (Primary Dx) Social [...] as of this encounter Progress Notes * Alphonse Zhong OA - 07/29/2023 10:[address] [facility] Surgeon: Allison Harkins MD Date of surgery: 06/16/23 Weeks Post-op: 6 Surgery: 1. Right arthroscopic rotator cuff repair. 2. Right arthroscopic glenohumeral debridement, extensive 3. Right subacromial bursectomy without bony acromioplasty. 4. Right open biceps tenodesis Subjective: Pain is controlled without any medications. The patient denies fever, wound drainage, increasing redness, pus, increasing pain, increasing swelling. Post op problems reported: none. Pt reports attending PT at [facility]. Ruthann states that she does have occasional sharp pains in her shoulder, but overall is doing well. Objective: General : alert, cooperative, no distress, appears stated age Skin Closure: absorbable Incision: healing well, no significant drainage, no dehiscence, no significant erythema Tenderness: none Wound Care: none Neurologic Exam: WNL Vascular Exam: WNL PROM: with scapula stabilized: Flex 75 deg, ER to -5 deg. AROM not performed Strength not performed Assistive Device d/c sling only use prn Radiograph none Assessment: Status post right RCR, doing well postoperatively. Plan: Pt will continue with with physical therapy. Table top activities and limited active use of upper extremity. No lifting/pushing/pulling until 12weeks s/p-op. Pt on 1# weight restriction with elbows close to body between now and 3 mo visit. Follow up with Dr. Harkins will be in 6 weeks time at which point we will be approximately 12 weeks from surgery when we will check ROM. documented in this encounter Plan of Treatment Upcoming Encounters Date Type Department Care Team (Late st Contact Info) Description 09/29/2023 8:40 AM CDT Appointment [facility] Neurosurgery/Ortho Spine [address] [facility]. [place]al [address] Nurse Visit 10/03/2023 11:00 AM CDT Appointment [facility] [address] [place] [address] Svitlana Olmos MD [address] [address] 10/20/2023 10:30 AM CDT Appointment [facility] [address] [facility] [place] [address] 12/06/2023 10:20 AM CDT Appointment [facility] Neurosurgery/Ortho Spine [address] [place] [address] Jg Munguia MD 295 [place] [address] 01/03/2024 11:20 AM CLIENT CARE CONSULTANT Appointment [facility] Dental [facility] [address] [place], [place] [phone] [facility] [address] [place], [place] [phone] documented as of this encounter Visit Diagnoses Diagnosis S/P rotator cuff repair- Primary Other postprocedural status documented in this encounter Care Teams Principal Biostatistician Relationship Specialty Start Date End Date Svitlana Olmos MD [address] [place] [address] PCP - General 05/30/10 documented as of this encounter
--- OUTSIDE RECORDS SUMMARY | 2023-09-28 12:49 | XMS_ITS | Encounter Summary ---
Author Organization [facility] Address [address] [place] [address] Care Team Providers Care Hand Cloth Examiner Name Role Phone Svitlana Olmos MD Primary Care Provider [phone] Reason for Visit * Reason Onset Date Comments Refill 06/20/2023 Encounter Details Date Type Department Care Team (Late Contact Info) Description 06/20/2023 Refill [facility] [address] [place] [address] Allison Harkins MD [address] [place] [address] Refill Social History Tobacco Use Types Packs/Day Years [...] [facility] [address] [place] [address] Nurse Visit 10/03/2023 11:00 AM CDT Appointment [facility] [address] [address] Svitlana Olmos MD [address] [place] [address] 10/20/2023 10:30 AM CDT Appointment [facility] Neurosurgery/Ortho Spine [address] [place] [address] 12/06/2023 10:20 AM CDT Appointment [facility] Neurosurgery/Ortho Spine [address] [place] [address] Jg Munguia MD [address] [place] [address] 01/03/2024 11:20 AM SLEEVE SETTER LOCKSTITCH Appointment [facility] [address] [place] [address] [address] [facility] [place] [address] [place], [place] [phone] documented as of this encounter Visit Diagnoses Diagnosis Traumatic complete tear of right rotator cuff, initial encounter- Primary documented in this encounter Care Teams Hand Cloth Examiner Relationship Specialty Start Date End Date Svitlana Olmos MD [address] [place] [address] PCP - General 05/30/10 documented as of this encounter
--- OUTSIDE RECORDS SUMMARY | 2023-09-28 12:49 | XMS_ITS | Encounter Summary ---
Author Organization [place] Address [address] [place] [address] Care Team Providers Care Rabbler Name Role Phone Svitlana Olmos MD Primary Care Provider [phone] Reason for Referral * Therapies (Routine) - New Request Specialty Diagnoses / Procedures Referred By Martir seay Referred To Contact Diagnoses Traumatic complete tear of right rotator cuff, initial encounter Allison Harkins MD [address] [facility] [address] Referral ID Status Reason Start Date Expiration Date V isits Requested Visits Authorized [id number] New Request 06/28/2023 06/27/[phone] Scheduling Instructions Your clinician recommended an appointment with Physical Therapy and Rehabilitation Services. You can quickly make your appointment online at [employer]Flow/schedule. You can also call [phone] for help scheduling your appointment. We suggest you call your health insurance company about your coverage and benefits for this appointment. Question Answer Appointment Urgency? Within 1 Week (Urgent) Requested Services Evaluate and treat May use saline for irrigation or cleansing Yes dexamethasone use Yes May check glucose per protocol (see policy link below) or if patient has symptoms? Yes Comments PT PROGRESSION: 4 weeks postop: start passive motion to include FE to 90 and ER to 20. 6 weeks: progress FE and ER as tolerated to include AAROM. 8 weeks: AROM as tolerated 3 months: formal cuff strengthening Reason for Visit * Reason Comments SHOULDER PAIN Right shoulder Encounter Details Date Type Department Care Team (Late st Contact Info) Description 06/28/2023 11:50 AM CDT Office Visit [facility] [place] [address] [place] [address] Allison Harkins MD [address] [facility] [place] [place] [address] Traumatic complete tear of right rotator cuff, initial encounter (Primary Dx) Social History Tobacco Use [...] Progress Notes * Allison Harkins MD - 06/28/2023 11:50 AM CDT CHIEF CONCERN: Status post right arthroscopic rotator cuff repair and open biceps tenodesis DATE OF SURGERY: 06/16/23 HISTORY OF PRESENT ILLNESS: Patient is 2 weeks s/p shoulder surgery above. No medical concerns. Pain is moderate. PHYSICAL EXAM: Adult in no acute distress Respirations even and unlabored Focused upper extremity exam: Incisions well healing. No drainage. Distally CMS intact. IMAGING: None new ASSESSMENT: Two weeks status post shoulder surgery above PLAN: Activity and Rehab plan per op note Sling per op note Return at 6 weeks postop for next follow up visit and at 3 months with MD Allison Moore. MD Torin documented in this encounter Plan of Treatment Upcoming Encounters Date Type Department Care Team (Late st Contact Info) Description 09/29/2023 8:40 AM CDT Appointment [facility] Neurosurgery/Ortho Spine [address] [place] [address] Nurse Visit 10/03/2023 11:00 AM CDT Appointment [facility] [address] [address] Svitlana Olmos MD [address] [place] [address] 10/20/2023 10:30 AM CDT Appointment [facility] Neurosurgery/Ortho Spine [address] [place] [address] 12/06/2023 10:20 AM CDT Appointment [facility] Neurosurgery/Ortho Spine [address] [place] [address] Jg Munguia MD [address] [place] [address] 01/03/2024 11:20 AM FURNACE COMBUSTION TESTER Appointment [facility] [address] [place] [phone] [facility] [address] [place], [place] [phone] Scheduled Referrals Name Type Priority Associated Diagnoses Orde r Schedule Physical Therapy Referral Routine Traumatic complete tear of right rotator cuff, initial encounter Ordered: 06/28/2023 documented as of this encounter Visit Diagnoses Diagnosis Traumatic complete tear of right rotator cuff, initial encounter- Primary documented in this encounter Care Teams Rabbler Relationship Specialty Start Date End Date Svitlana Olmos MD [address] [place] [address] PCP - General 05/30/10 documented as of this encounter
--- OUTSIDE RECORDS SUMMARY | 2023-09-28 12:49 | XMS_ITS | Encounter Summary ---
Author Organization [facility] Address [address] [place] [address] Care Team Providers Care Insurance Premium Auditor Name Role Phone Shashank Olmos MD Primary Care Provider [phone] Reason for Visit * Reason Comments Refill traZODone (DESYREL) 100 MG tablet [Pharmacy Med Name: TRAZODONE 100MG TABLETS] Encounter Details Date Type Department Care Team (Late st Contact Info) Description 06/02/2023 Refill [facility] [phone] Shashank Olmos MD [address] [place] [address] [place] [phone] Refill (traZODone (DESYREL) 100 MG tablet [Pharmacy Med Name: TRAZODONE 100MG TABLETS]) Social History Tobacco Use Types Packs/Day Years [...] as of this encounter Nursing Notes * Mar Soares, RN - 06/03/2023 12:54 PM CDT Refill RN will deny request as RX was already sent 05/25/23 for 90x3 to this pharmacy. * Yossi Mcgee Xrwcomm - 06/02/2023 8:07 AM CDT traZODone (DESYREL) 100 MG tablet [Pharmacy Med Name: TRAZODONE 100MG TABLETS] Medication started: 09/14/2017 Last ordered by SHASHANK OLMOS F: 05/25/2023 (8 days ago) QTY: 90, Refills: 3, Sig: take 1 tablet(100 mg) by mouth daily at bedtime. (changed but equivalent) -> The request contains a note from the pharmacy. -> Refill x 12 months, qty: 90, refills: 3 (until due for an office visit) Last qualifying visit: 05/25/2023 (with SHASHANK OLMOS) Next scheduled visit: None [facility] [employer] Embedded Refills, Reference: [id number], 06/02/2023 8:07:18 AM FLORINAT, Jason: JOHNATHAN Refill Centralized Services - Primary Care [[id number]] ([id number]) documented in this encounter Plan of Treatment Upcoming Encounters Date Type Department Care Team (Late st Contact Info) Description 09/29/2023 8:40 AM CDT Appointment [facility] Neurosurgery/Ortho Spine [address] [facility] [place] [address] Nurse Visit 10/03/2023 11:00 AM CDT Appointment [facility] [address] [address] Shashank Olmos MD [address] [address] 10/20/2023 10:30 AM CDT Appointment [facility]tho Spine [address] [facility] [place] [address] 12/06/2023 10:20 AM CDT Appointment [facility] Neurosurgery/Ortho Spine [address] [facility] [place] [address] Jg Munguia MD [address] [place] [address] 01/03/2024 11:20 AM COMBAT RIFLE CREWMEMBER Appointment [facility] [address] [place] [address] [facility] [address] [place] [address] documented as of this encounter Visit Diagnoses Diagnosis Chronic insomnia Insomnia, unspecified documented in this encounter Care Teams Insurance Premium Auditor Relationship Specialty Start Date End Date Shashank Olmos MD [address] [place] [address] PCP - General 05/30/10 documented as of this encounter
--- OUTSIDE RECORDS SUMMARY | 2023-09-28 12:49 | XMS_ITS | Encounter Summary ---
Author Organization [facility] Address [address] [place] [address] Care Team Providers Care Right Of Way Buyer Name Role Phone Svitlana Olmos MD Primary Care Provider [phone] Reason for Visit * Reason Comments Shoulder Problem Encounter Details Date Type Department Care Team (Late st Contact Info) Description 08/11/2023 8:15 AM CDT Therapy [facility] [address] [phone] [place] [address] [place] [address] Traumatic tear of right rotator cuff, unspecified [...] Progress Notes * César Gleason, PT - 08/11/2023 8:15 AM CDT Physical Therapy Progress Note Visit Number: 4 Referring Provider: Allison Harkins Referring Diagnosis: 1. [...] surgery - 08/09/23 SUBJECTIVE: Ruthann reports that HEP in general going well. She has had some more soreness in the last 2 days. [place] like she slept awkwardly on her shoulder a couple of days ago and woke up sore. Is getting numbness and swelling into the hand which she has discussed with surgeon. OBJECTIVE Current Objective Findings: Shoulder PROM: Flexion - 95 degrees External Rotation - 10 degrees Treatment/Education Today: Therapeutic Exercise (CPT 19040) x 39 minutes: - objective measures above - Supine Elbow Flexion Extension AROM - 10 reps - Circular Shoulder Pendulum with Table Support - 10 reps - Arm Hang x 5 reps - Standing Shoulder External Rotation AAROM with Dowel and towel - 10 reps - Seated Shoulder Flexion Towel Slide at Table Top - more PROM - 10 reps - Seated Shoulder Flexion Towel Slide at Table Top - with just right hand - 10 reps - Seated AAROM shoulder flexion in chair x 10 reps - able to achieve roughly 70 degrees here - seated shoulder shrugs and retraction x10 each Timed Code Treatment Minutes: 39 Total Treatment Minutes: 39 Current Home Exercise Program List: Access Code: [email or web address] - Supine Elbow Flexion Extension AROM - [...] is doing a good job with HEP. I did encourage performing the stretching slightly more often during the day. Otherwise good form with her exercises. Pushing herself to the appropriate level with all of them. Swelling and numbness is being discussed with surgeon. Functional Goals/Outcomes: HEP/Independent Management: Demonstrate independence with HEP and self- management following each treatment session ADL's: Perform home management tasks with ease in 8 weeks. [place] hair and face in 8 weeks. Reach overhead to put items on high shelf with ease in 10 weeks. Driving: Use affected upper extremity for driving in 8 weeks. PLAN: Continue per protocol documented in this encounter Plan of Treatment Upcoming Encounters Date Type Department Care Team (Late st Contact Info) Description 09/29/2023 8:40 AM CDT Appointment [facility] Neurosurgery/Ortho Spine [address] [facility]. [address] [phone] Nurse Visit 10/03/2023 11:00 AM CDT Appointment [facility] [address] [place] [address] Svitlana Olmos MD [address] [place] [address] 10/20/2023 10:30 AM CDT Appointment [facility] [address] [facility] [place] [address] 12/06/2023 10:20 AM CDT Appointment [facility] [address] [facility] [place], [place] [phone] Jg Munguia MD [address] [place], [place] [phone] 01/03/2024 11:[address] PROGRAMMER Appointment [facility] [address] [place], [place] [phone] [facility] [address] [place], [place] [phone] documented as of this encounter Visit Diagnoses Diagnosis Traumatic tear of right rotator cuff, unspecified tear extent, subsequent encounter- Primary documented in this encounter Care Teams Right Of Way Buyer Relationship Specialty Start Date End Date Svitlana Olmos MD [address] [place] [address] PCP - General 05/30/10 documented as of this encounter
--- OUTSIDE RECORDS SUMMARY | 2023-09-28 12:50 | XMS_ITS | Clinical Summary ---
Author Organization [place] Address [facility] [place] [address] Care Team Providers Care Hydro Electric Station Operator Name Role Phone Svitlana Olmos Primary Care Provider [phone]- [phone] Allergies No known active allergies Medications Medication Sig Dispensed Refills Start Date End Date Status sertraline (ZOLOFT) 50 MG tablet Take 50 mg by mouth daily. Active varenicline (CHANTIX) 1 MG tablet Take 1 mg by mouth 2 times daily. Active docusate sodium (COLACE) 100 MG capsuleIndications:C onstipation Take 1 capsule by mouth 2 times daily. 60 capsule 0 07/31/2010 Active quetiapine (SEROQUEL) 100 MG tabletIndications:[place] depressive disorder, recurrent episode, mild (H24) Take 1 tablet by mouth At Bedtime. 30 tablet 0 07/31/2010 Active sertraline (ZOLOFT) 50 MG tabletIndications:[place] depressive disorder, recurrent episode, mild (H24) Take 1 tablet by mouth daily. 30 tablet 0 07/31/2010 Active ibuprofen (ADVIL,MOTRIN) 600 MG tabletIndications:Al cohol withdrawal (H) Take 1 tablet by mouth every 6 hours as needed. 100 tablet 0 07/31/2010 Active varenicline (CHANTIX) 1 MG tabletIndications:[place] dependence Take 1 tablet by mouth 2 times daily. 56 tablet 0 07/31/2010 Active guaiFENesin-codeine (ROBITUSSIN AC) 100-10 MG/5ML solution Take 5-10 mLs by mouth every 4 hours as needed for cough 118 mL 12/26/2019 Active Active Problems Problem Noted Date Diagnosed Date Alcohol dependence 07/30/2010 Alcohol withdrawal 07/30/2010 Major depressive disorder, recurrent episode, mi ld (H24) 07/30/2010 Social History Tobacco Use Types Packs/Day Years Used Date Smoking Tobacco: Every Day Cigarettes 0.3 33 Smokeless Tobacco: Never Alcohol Use Standard Drinks/Week Comments Yes 0 (1 standard drink = 0.6 oz pur e alcohol) )ne quart ofrum per day. Adolescent Education Answer Date Record ed Getting School Help Needed Not on file 12/05 Sex and Gender Information Value Date Recorded Sex Assigned at Not on file Gender Identity Not on file Sexual Orientation Not on file Last Filed Vital Signs Vital Sign Reading Time Taken Comments Blood Pressure 135/84 12/26/2019 9:45 PM CDT Pulse 69 12/26/2019 9:45 PM CDT Temperature 36.5 ??C (97.7 ??F) 12/26/2019 7:19 PM CD T Respiratory Rate 18 12/26/2019 9:30 PM CDT Oxygen Saturation 95% 12/26/2019 9:45 PM CDT Inhaled Oxygen Concentration - - Weight 68 kg (150 lb) 06/20/2017 9:45 PM CDT Height 162.6 cm (5' 4) 07/28/2010 5:00 PM CDT Body Mass Index 25.75 07/28/2010 5:00 PM CDT Plan of Treatment Not on file Advance Directives For more information, please contact: [phone] * Full Code (Latest Code Status on File) Date Activated Date Inactivated Comments 07/28/2010 5:56 PM 07/31/2010 4:34 PM Care Teams Hydro Electric Station Operator Relationship Specialty Start Date End Date Svitlana Olmos PCP - General Family Practice 06/20/17
--- OUTSIDE RECORDS SUMMARY | 2023-09-28 12:50 | XMS_ITS | Referral Summary ---
Author Organization [place] Address [facility] [place] [address] Care Team Providers Care Pizza Driver Name Role Phone Svitlana Olmos Primary Care Provider [phone]- [phone] Allergies No known active allergies Medications Medication [...] Advance Directives For more information, please contact: [phone] * Full Code (Latest Code Status on File) Date Activated Date Inactivated Comments 07/28/2010 5:56 PM 07/31/2010 4:34 PM Care Teams Pizza Driver Relationship Specialty Start Date End Date Svitlana Olmos PCP - General Family Practice 06/20/17
[2023-09-28] MEDS: MORPHINE 4 MG/ML INJ IVP ×2 (13:01→14:30)
[2023-09-28 13:15] LABS: Basophils Percent Auto 0.4 % (0.0-3.0); Eosinophils Percent Auto 2.9 % (0.0-7.0); Hematocrit 36.4 % (33.0-51.0); Hemoglobin* 11.5 gm/dL (12.0-16.0); Immature Granulocytes Pct Auto 1.7 %; Lymphocytes Percent Auto 22.2 % (20-44); Mean Corpuscular HGB Conc 32 gm/dL (32-36); Mean Corpuscular Hemoglobin 28 pg (26-34); Mean Corpuscular Volume 88 fL (80-100); Neutrophils Percent Auto 62.8 % (42.0-72.0); Platelet Count* 232 K/uL (140-440); RDW Coefficient of Variation % 13.7 % (11.5-15.5); Red Blood Count 4.12 m/uL (4.00-5.20); White Blood Count* 11.55 K/uL (4.50-11.00)
[2023-09-28 13:21] LABS: Slide Review Reflex No
[2023-09-28 13:34] LABS: Chloride* 108 mmol/L (96-114); Potassium* 3.7 mmol/L (3.6-5.1); Sodium* 136 mmol/L (135-149)
[2023-09-28 13:35] VITALS: BP 138/89; PULSE 57; RESP 18; O2SAT 96
[2023-09-28 13:37] LABS: Creatinine* 0.6 mg/dL (0.5-1.5); Est. Creatinine Clearance* 90.84; Estimated Glomerular Filt Rate 103 ml/min
[2023-09-28 13:38] LABS: Anion Gap 1 mEq/L (7-15); Blood Urea Nitrogen* 14 mg/dL (7-30); Calcium* 9.1 mg/dL (8.4-10.6); Carbon Dioxide* 27 mmol/L (20-32); Glucose* 102 mg/dL (60-115)
[2023-09-28 13:40] LABS: C Reactive Protein* 3.2 mg/dL (0.5-1.0)
[2023-09-28 14:31] LABS: Appearance Urine Clear (Clear); Bilirubin Urine Negative (Negative); Blood Urine Negative (Negative); Color Urine Yellow (Yellow); Glucose Urine Negative (Negative); Ketones Urine Negative (Negative); Leukocyte Esterase Urine Negative (Negative); Nitrite Urine Negative (Negative); Protein Urine Negative (Negative); Specific Gravity Urine <= 1.005 (1.000-1.030); Urobilinogen Urine 0.2 (0.2-1.0); pH Urine 5.5 (5.0-8.5)
[2023-09-28] MEDS: PIPERACILLIN/TAZOBACTAM 3.375 GM in 0.9 % SODIUM CHLORIDE Mini-bag 100 ML IVPB (14:50)
--- NOTE | 2023-09-28 15:19 | ED.NURSE ---
Report given to EMS.
--- NOTE | 2023-09-28 15:40 | ED.NURSE ---
Report given to [facility] charge nurse.
== END 2023-09-28 15:20 | disposition other institution (70) ==
PROVIDERS: Emergency Provider Student in an Organized Health Care Education/Training Program
DX: T88.9XXA Complication of surgical and medical care, unspecified, initial encounter (principal); L01.00 Impetigo, unspecified
CPT/HCPCS: 36415; 70460; 70487; 80048; 81003; 85025; 86140; 87086; 96365; 96366; 96375; 99283; 99284; J2270; J2543; J3370; J7030; Q9967

== ENCOUNTER 2023-09-28 15:08 | Outpatient (CLI) | payer OTHER, SELFPAY ==
--- OUTSIDE RECORDS SUMMARY | 2023-10-07 02:10 | XMS_ITS | Clinical Summary ---
Author Organization [facility] Address [address] [place] [id number] Care Team Providers Care Career Professional Name Role Phone Sivtlana Olmos MD Primary Care Provider [phone] Source Comments You are receiving this document as you are listed as the primary care provider,follow-up provider, or the patient has been referred to you for consultation.This is in compliance with the Medicare and[facility] EHR Incentive Program,which states Providers who transition their patient to another setting of careor provider of care or refers their patient to another provider of care shouldprovide summary care record for each transition of care or referral. [facility] Allergies No known active allergies Medications Medication Sig Dispensed Refills Start Date End Date Status Multiple Vitamins-Minerals (MULTIVITAMIN OR) Take 1 tablet by mouth daily (every 24 hours). 100 13 06/02/19 06 Active ascorbic acid (AKA VITAMIN C) 500 MG tablet Take 2 Tablets (1,000 mg) by mouth daily. 06/02/19 06 Active Calcium Carbonate (CALCIUM 500 OR) Take 1 Tablet by mouth daily. Active acyclovir (ZOVIRAX) 400 MG tabletIndications: Recurrent cold sores Take 1 Tablet (400 mg) by mouth three times a day as needed. 15 Tablet 3 03/24/19 23 Active varenicline (CHANTIX) 1 MG tabletIndications: Tobacco abuse (HRC) Take 1 Tablet (1 mg) by mouth two times a day. Take after eating with a full glass of water.NOTE:Dispen se as maintenance for refills only. 180 Tablet 3 05/25/19 24 Active acetaminophen (TYLENOL) 325 MG tablet Take 1-2 Tablets (325-650 mg) by mouth every 6 hours as needed for Pain. 45 Tablet 1 06/16/19 24 Active traZODone (DESYREL) 100 MG tabletIndications: Chronic insomnia Take 2 Tablets (200 mg) by mouth daily at bedtime. 180 Tablet 3 08/31/19 24 Active Vincent-3 Fatty Acids (FISH OIL) 1000 MG capsule Take 1 Capsule (1,000 mg) by mouth daily. Do not start before September 28, 2023. 09/28/19 24 Active Garlic (ODOR FREE GARLIC) 100 MG Take 1 Tablet (100 mg) by mouth daily. Do not start before September 28, 2023. 09/28/19 24 Active sennosides-docusat e sodium (SENOKOT S) 8.6-50 MG per tabletIndications: Constipation Take 2 Tablets by mouth two times daily as needed for Constipation. Indications: Constipation 60 Tablet 09/20/19 Active Additional Information Patient taking differently:2 Tablet OralBID, Indications: Constipation, Reported on 09/28/2023 famotidine (PEPCID) 20 MG tablet Take 1 Tablet (20 mg) by mouth two times a day before meals. 6 Tablet 09/21/19 24 Active mupirocin (BACTROBAN) 2 % ointmentIndication s:Infection Apply topically three times a day. 30 g 09/27/19 24 Active cholecalciferol (VITAMIND3) 50 MCG (2000 UT) tablet Take 2 Tablets (4,000 Units) by mouth daily. Active cefTRIAXone (ROCEPHIN) 2 g injection Administer 2,000 mg (2 g) intravenously every 12 hours for 23 days. Reconstitute and/or dilute per home infusion pharmacy/facility compounding standards or use premade bag if available. This order should end on 10/26/23 , date inclusive. 10/03/19 024 Active heparin PF, Pork, 100 UNIT/ML injection Administer 5 mL (500 Units) intravenously as needed (line patency). Dispense quantity sufficient for treatment course. Use per institutional policy. 10/03/19 24 Active sodium chloride 0.9% injection Administer 10 mL intravenously as needed (For Line patency. Before and After Medications or Lab draw.). Dispense quantity sufficient for treatment course. Use per institutional policy. 10/03/19 24 Active alteplase (CATHFLO ACTIVASE) 2 MG injection Administer 2 mg intravenously as needed (Line Occlusion) for up to 2 doses. Instill 2 mg into the occluded catheter, after 30 minutes dwell time assess, if not functional reassess again in 90 minutes. If still occluded may repeat 2 mg dose and reassess after 30 minutes. Dispense quantity sufficient for treatment course. Use per institutional policy. 10/03/19 24 Active emollient (AQUAPHOR) ointment Apply topically three times a day. 10/05/19 24 Active oxyCODONE HCl (ROXICODONE) 10 MG immediate release tabletIndications: Acute Pain Take 1 Tablet (10 mg) by mouth every 4 hours as needed for Pain. Indications: Acute Pain 20 Tablet 10/05/19 24 Active gabapentin (NEURONTIN) 400 MG capsule Take 1 Capsule (400 mg) by mouth three times a day. 90 Capsule 10/05/19 24 025 Active hydrOXYzine pamoate (VISTARIL) 50 MG capsuleIndications :pain Take 1 Capsule (50 mg) by mouth 4 times daily as needed. Indications: pain 40 Capsule 10/05/19 24 Active methocarbamol (ROBAXIN) 500 MG tablet Take 1 Tablet (500 mg) by mouth 4 times daily as needed. 40 Tablet 10/05/19 24 Active ondansetron (ZOFRAN-ODT) 4 MG disintegrating tabletIndications: Nausea and Vomiting Dissolve 1 Tablet (4 mg) by mouth every 6 hours as needed. Indications: Nausea and Vomiting 10 Tablet 10/05/19 24 Active ODOR FREE GARLIC OR Take by mouth daily (every 24 hours). 06/02/19 024 Discontinued omega-3 fatty acids (FISH OIL) 1000 MG capsule Indications: PN: 11/30/19 024 Discontinued Cholecalciferol (VITAMIN D-3 OR) 024 Discontinued(Ph armacy ONLY - Admission Med Rec) triamcinolone acetonide (KENALOG) 0.1 % ointmentIndication s:Dermatitis Apply topically two times a day. Use on hand dermatits, taper to once a day as improves. Not for use on normal skin, face, or skin folds. 80 g 2 05/25/19 24 024 Discontinued(Ino ness Discharged) senna (SENNA LAXATIVE) 8.6 MG tablet Take 1 Tablet by mouth daily. 50 Tablet 06/16/19 24 024 Discontinued(Pa thi Discharged) ibuprofen (MOTRIN) 600 MG tablet Take 1 Tablet (600 mg) by mouth every 6 hours as needed for Pain. 40 Tablet 06/16/19 24 024 Discontinued ibuprofen (MOTRIN) 600 MG tablet Take 1 Tablet (600 mg) by mouth every 6 hours as needed for Pain. Do not start before September 28, 2023. 09/28/19 24 024 Discontinued(Ino ness Discharged) levETIRAcetam (KEPPRA) 500 MG tablet Take 1 Tablet (500 mg) by mouth two times a day for 7 days. 14 Tablet 09/20/19 24 024 Discontinued(*R esolved Condition) dexAMETHasone (DECADRON) 2 MG tablet Take 1 tablet (2 mg) by mouth twice daily on 09/21/23. Then, take 1 tablet (2 mg) daily on 09/22/23, then stop. 3 Tablet 09/20/19 24 024 Discontinued(Ph armacy ONLY - Admission Med Rec) bacitracin 500 UNIT/GM ointment Apply topically three [...] needed for Pain. 20 Capsule 09/26/19 24 024 Discontinued methocarbamol (ROBAXIN) 500 MG tablet Take 1 Tablet (500 mg) by mouth 4 times daily as needed. 20 Tablet 09/26/19 24 024 Discontinued oxyCODONE (ROXICODONE) 5 MG immediate release tablet Take 1-2 Tablets (5-10 mg) by mouth every 6 hours as needed for Pain. 30 Tablet 09/26/19 24 024 Discontinued(Ino ness Discharged) cephalexin (KEFLEX) 500 MG capsuleIndications :Infection Take 1 Capsule (500 mg) by mouth 4 times a day. 28 Capsule 09/27/19 24 024 Discontinued(Ino ness Discharged) Active Problems Patient Care Coordination No te Formatting of this note migh t be different from the original. Goal: Restoring patient to their highest level of health and function. Candelaria Hernandez RN CCM PHN Problem Noted Date Diagnosed Date History of resection of meningioma 10/04/2023 Nonintractable headache 10/02/2023 New daily persistent headache 10/02/2023 Impetigo 09/30/2023 Surgical site infection 09/30/2023 Wound infection 09/28/2023 Bradycardia, sinus 09/19/2023 Hypotension 09/15/2023 Post-op pain 09/14/2023 Eye swelling, bilateral 09/14/2023 Cerebral edema 09/14/2023 Coordination of complex care 09/14/2023 Meningioma 06/14/2023 Traumatic complete tear of right rotator cuff FHx: colonic polyps 04/27/2022 Overview: Colonoscopy completed 03/2022. Repeat in 5 years. 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 [address] Jg Munguia MD 10/04/2023 2:00 PM CDT Ancillary Procedure [facility] [address] [place] [address] 10/01/2023 10:55 PM CDT Ancillary Procedure [facility] [address] [place] [address] 10/01/2023 5:30 PM CDT Ancillary Procedure [facility] Fluoro [address] [place] [address] 10/01/2023 1:40 PM CDT Ancillary Procedure [facility] [address] [place] [address] 09/28/2023 7:00 PM CDT Ancillary Procedure [facility] [address] [place] [address] 09/28/2023 4:16 PM CDT - 10/05/2023 3:27 PM CDT Hospital Encounter [facility] S10 [address] [place] [address] Emily Whitmore MD Dahms, MD Beni Sosa Suzanne E, FAST FOOD CASHIER, Jg Barrow MD Carlson, Lubna Stewart, Trixie Walter, Lexis Zamarripa, Osmany Khan MD Postoperative infection, unspecified type, initial encounter (Primary Dx); Wound infection; Surgical site infection; Acute pain Discharge Disposition: Home 09/28/2023 Partner ED HIM DEPARTMENT Provider, MD Mehnaz [facility] 09/28/2023 09/27/2023 1:30 PM CDT Lab Visit [facility] [address] [place] [address] Infection 09/27/2023 12:20 PM CDT Office Visit [facility] Neurosurgery/Ortho Spine [address] [place] [address] Infection (Primary Dx) 09/27/2023 E-Visit [facility] [address] [facility] [place] [address] Mychart, Generic Provider 09/27/[address] [address] Svitlana Olmos MD Other (See message 09/26/23) 09/26/2023 Telephone [facility] [address] [place] [address] Candelaria Hernandez RN FOLLOW-UP,HOSPITAL 09/26/[address] [address] Svitlana Olmos MD Medication Request 09/26/[address] [address] Svitlana Olmos MD Other 09/23/2023 Notes/Orders [facility] Cardiac Non-Invasive Lab [address] [place] [address] Chiquita Gaffney MD Bradycardia (Primary Dx) 09/23/2023 Notes/Orders [facility] [address] [place] [address] Chiquita Gaffney MD Bradycardia (Primary Dx) 09/15/2023 12:20 AM CDT Ancillary Procedure [facility] [address] [place] [address] Jg Munguia MD 09/14/2023 7:36 AM CDT Anesthesia Event [facility] Operating Room [address] [place] [address] Yanique Flores MD Yamashita, Lilia F, FAST FOOD CASHIER, MICROSOFT DEVELOPER 09/14/2023 7:15 AM CDT - 09/14/2023 11:15 AM CDT Surgery [facility] Operating Room [address] [place] [address] Jg Munguia MD Stealth guided Medial Eyebrow Craniotomy for Meningioma Resection. 09/14/2023 6:30 AM CDT Ancillary Procedure [facility] [address] [place] [address] Jg Munguia MD Meningioma (HRC) 09/14/2023 4:48 AM CDT - 09/22/2023 3:23 PM CDT Hospital Encounter [facility] S[address] [place] [address] Jg Munguia MD Bradycardia, sinus (Primary Dx); Meningioma (HRC); S/P craniotomy Discharge Disposition: Home 09/14/2023 Orders Only HIM DEPARTMENT Provider, MD Mehnaz 09/13/2023 10:00 AM CDT Ancillary Procedure [facility] [address] [place] [address] Jg Munguia MD Meningioma (HRC) 09/06/2023 9:50 AM CDT Office Visit [facility] [address] [place] [address] Allison Harkins MD S/P rotator cuff repair (Primary Dx) 09/06/[address] [address] Allison Harkins MD Forms 09/05/2023 10:30 AM CDT Therapy [address] [address] César Gleason, PT Traumatic tear of right rotator cuff, unspecified tear extent, subsequent encounter (Primary Dx) 08/31/2023 3:30 PM CDT Lab Visit [facility] [address] [place] [address] Preoperative examination 08/31/2023 10:30 AM CDT Pre-Op Visit [facility] [address] [place] [address] Svitlana Olmos MD Preoperative examination (Primary Dx); Meningioma (HRC); Chronic insomnia; Preop examination 08/31/2023 Telephone [facility] Neurosurgery/Ortho Spine [address] [facility] [place] [address] Jg Munguia MD Forms (The Standard Physician's statement) 08/29/2023 2:15 PM CDT Therapy [address] [address] César Gleason, PT Traumatic tear of right rotator cuff, unspecified tear extent, subsequent encounter (Primary Dx) 08/25/2023 1:00 PM CDT Office Visit [facility] Hand Therapy [address] [place] [address] Mary Jo Roach, OTR/L Numbness and tingling of right arm (Primary Dx) 08/25/2023 12:40 PM CDT Office Visit [address] [address] Henry Odom MD Wells, David T, FAST FOOD CASHIER, PARACHUTE PACKER Right arm numbness (Primary Dx) 08/23/2023 11:[address] [facility] Physical [address] [address] César Gleason, PT Traumatic tear of right rotator cuff, unspecified tear extent, subsequent encounter (Primary Dx) 08/18/2023 Telephone Dental Call Center Unassigned, Provider Dental Services 08/16/2023 1:00 PM CDT Office Visit [address] [address] Allison Harkins MD S/P rotator cuff repair (Primary Dx) 08/11/2023 8:15 AM CDT Therapy [address] [address] César Gleason, PT Traumatic tear of right rotator cuff, unspecified tear extent, subsequent encounter (Primary Dx) 08/09/[address] [address] Allison Harkins MD QUESTIONS, GENERAL (Pt requesting to speak with care team regarding right arm and hand swelling and numbness in hand and fingers postoperatively.) 08/04/2023 1:15 PM CDT Therapy [address] [address] Janeen Cisneros, PT Traumatic tear of right rotator cuff, unspecified tear extent, subsequent encounter (Primary Dx) 08/02/2023 Telephone [facility] Neurosurgery/Ortho Spine [address] [place] [address] Jg Munguia MD Questions (Surgery/) 07/29/2023 10:30 AM CDT Office Visit [address] [address] Alphonse Zhong OA S/P rotator cuff repair (Primary Dx) 07/28/2023 2:00 PM CDT Office Visit [facility] Dental [address] [address] Brandy Chou, DALI Problem Focused Exam (Broken tooth, no pain - points to #3 ) 07/28/2023 9:[address] [facility] Physical [address] [address] Quiring, César R, PT Traumatic tear of right rotator cuff, unspecified tear extent, subsequent encounter (Primary Dx) 07/21/2023 Telephone [facility] Dental [facility] [address] [place] [address] Fabiola Batres, DDS Problem Focused Exam 07/18/2023 10:30 AM CDT Therapy [facility] Physical Therapy [address] [place] [address] Sherman Mccallum, PT Traumatic tear of right rotator cuff, unspecified tear extent, subsequent encounter (Primary Dx) 07/12/2023 6:45 PM CDT Ancillary Procedure [facility] [address] [address]trasound [address] [place] [address] Doe Cuellar, PAJeffry Arm mass, right 07/12/2023 5:40 PM CDT Office Visit [facility] [address] [place] [address] Doe Cuellar, PA-C Arm mass, right; Arm edema from Last 3 Months Immunizations Name Administration Dates Next Due Flu Vac Preserv Free (3+yrs) 12/29/2010, 12/26/2010,11/25/2008, 008,12/20/2006,12/04/2005,12/14/2003 H1n1 Laiv Medimmune 2-49 Yr (Intranasal) 12/14/2008 Influenza IIV4 (Quadrivalent ) 0.5mL (05985) 01/28/2015,01/14/2014,03/19/2013 Influenza LAIV (Nasal, 2-49 yrs) 02/18/2012 [...] drink = 0.6 oz pur e alcohol) [facility] Utilities Answer Date Recorded In the past 12 months has e Mempile, gas, oil, or water morphCARD threatened to shut off services in your home? No 09/29/2023 Humiliation, Afraid, Rape, and Kick questionnair e Answer Date Recorded Fear of Current or Ex-Partner Not on file Within the last year, have y ou been humiliated or emotionally abused in other ways by your partner or ex-partner? No 09/29/2023 Within the last year, have y ou been kicked, hit, slapped, or otherwise physically hurt by your partner or ex-partner? No 09/29/2023 Within the last year, have y ou been raped or forced to have any kind of sexual activity by your partner or ex-partner? No 09/29/2023 PHQ-2 Answer Date Recorded PHQ-2 Score 0 06/09/2023 Hunger Vital Sign Answer Date Recorded Within the past 12 months, y ou worried that your food would run out before you got the money to buy more. Never true 09/29/19 24 Within the past 12 months, t he food you bought just didn't last and you didn't have money to get more. Never true 09/29/2023 PRAPARE - Transportation Answer Date Re corded In the past 12 months, has l ack of transportation kept you from medical appointments or from getting medications? No 02/2023 In the past 12 months, has l ack of transportation kept you from meetings, work, or from getting things needed for daily living? No 09/29/2023 Housing Stability Vital Sign Answer Davie e Recorded In the last 12 months, was t here a time when you were not able to pay the mortgage or rent on time? No 09/29/2023 In the last 12 months, how many places have you lived? 1 09/29/2023 In the last 12 months, was t here a time when you did not have a steady place to sleep or slept in a retirement (including now)? No 09/29/2023 Sex and Gender Information Value Date Recorded Sex Assigned at Not on file Gender Identity Not on file Sexual Orientation Not on file Last Filed Vital Signs Vital Sign Reading Time Taken Comments Blood Pressure 106/59 10/05/2023 8:00 AM CDT Pulse 62 10/05/2023 8:00 AM CDT Temperature 36.5 ??C (97.7 ??F) 10/05/2023 8:00 AM CD T Respiratory Rate 16 10/05/2023 8:00 AM CDT Oxygen Saturation 95% 10/05/2023 8:00 AM CDT Inhaled Oxygen Concentration - - Weight 77.8 kg (171 lb 8 oz) 09/28/2023 9:28 PM CDT Height 165.1 cm (5' 5) 09/28/2023 9:28 PM CDT Body Mass Index 28.54 09/28/2023 9:28 PM CDT Plan of Treatment Upcoming Encounters Date Type Department Care Team (Late st Contact Info) Description 10/12/2023 9:00 AM CDT Appointment [facility] [address] [address] Svitlana Olmos MD [address] [place] [address] Hospital Discharge Follow-up 10/20/2023 10:30 AM CDT Appointment [facility] Neurosurgery/Ortho Spine [address] [place] [address] 12/06/2023 10:20 AM CDT Appointment [facility] Neurosurgery/Ortho Spine [address] [place] [address] Jg Munguia MD [address] [place] [address] 01/03/2024 11:20 AM SOCIAL SCIENCES DEPARTMENT CHAIR Appointment [facility] [address] [place] [address] Grant Latha L, [facility] [address] [place] [address] Health Maintenance Due Date Last Done Comments Pneumococcal (1 - PCV) 02/23/1970 HepB (1) 02/23/1983 Adult Preventive Visit 09/26/2021 09/26/2020, 2018 COVID-19 Vaccine (4 - season) 2022 02/17/2021, 03/13/2020, 02/20/2020 Mammogram 11/04/2022 [...] this topic Medical Devices Implanted Type Area Director Non Profit Device Identifier Shelf Expiration Date Model / Serial / Lot Bone Canc Crushed 15cc - [id number] Implanted:Qty : 1 on 09/14/2023 by Jg Munguia MD at [facility] N/A: SKULL Medtronic - SpincalGraft Tech 11/24/2027 [id number] / [id number] / [place] Swivel Lk 5.5x19.1 - Req In Mult Of 5 - [id number] Implanted:Qty : 1 on 06/16/2023 by Allison Harkins MD at [facility] Right: SHOULDER Arthrex Inc 02/27/2027 AR-[id number] C / 0 / [id number] [place] Swivel Lk 5.5x19.1 - Req In Mult Of 5 - [id number] Implanted:Qty : 1 on 06/16/2023 by Allison Harkins MD at [facility] Right: SHOULDER Arthrex Inc 11/27/2026 AR-2323BC C / 0 / [id number] Button Fibertak System - [id number] Implanted:Qty : 1 on 06/16/2023 by Allison Harkins MD at [facility] Right: SHOULDER Ar[employer]rex Inc 12/29/2027 [id number]-3680 / 0 / [id number] Adhesive Duraseal 5ml - B/5 - [id number] Implanted:Qty : 1 on 09/14/2023 by Jg Munguia MD at [facility] DEV[employer] N/A: BRAIN Integra Lifesciences 07/28/2024 [id number] / / [id number] Anshul Hydroset Xt 5cc - [id number] Implanted:Qty : 1 on 09/14/2023 by Jg Munguia MD at [facility] DEV[employer] N/A: SKULL Concepcion 01/09/2025 [id number] / / [id number] Plt Matrix Ti Ulp Strt 2h 12mm - [id number] Implanted:Qty : 4 on 09/14/2023 by Jg Munguia MD at [facility] N/A: SKULL DePuy Synthes - CMF 502.06 2 / / Scr Matrix Sfdr 4mm - [id number] Implanted:Qty : 8 on 09/14/2023 by Jg Munguia MD at [facility] DEV[facility] N/A: SKULL DePuy Synthes - CMF 503.10 4.01 / / Graft Duragen Suturable 2x2 - [id number] Implanted:Qty : 1 on 09/14/2023 by Jg Munguia MD at [facility] XENOGRAFT N/A: BRAIN Integra Lifesciences 11/27/2024 [id number] / / [id number] Sut Tape [place] Fibertak Soft - [id number] Implanted:Qty : 1 on 06/16/2023 by Allison Harkins MD at [facility] Right: SHOULDER Arthrex Inc 06/28/2027 AR-[id number] / 0 / [id number] Procedures Procedure Name Priority Date/Time Associated Diagnosis Comments GLUCOSE, WHOLE BLOOD POCT Routine 10/04/2023 6:15 PM CDT IR INJECTION EPIDURAL BLOOD PATCH Routine 10/04/2023 2:29 PM CDT XR PORTABLE CHEST 1 VIEW STAT 10/01/2023 11:34 PM CDT FL LUMBAR PUNCTURE (FOR CSF) Routine 10/01/2023 6:23 PM CDT AFB CULTURE Routine 10/01/2023 6:01 PM CDT ANAEROBIC CULTURE Routine 10/01/2023 6:0 1 PM CDT SPINAL FLUID CULTURE & SMEAR Routine 10/01/2023 6:01 PM CDT FUNGUS CULTURE Routine 10/01/2023 6:01 PM CDT CSF MENINGITIS / ENCEPHALITIS PANEL, MOLECULAR DETECTION Routine 10/01/2023 6:01 PM CDT CEREBROSPINAL FLUID MANUAL DIFFERENTIAL Routine 10/01/2023 6:01 PM CDT CEREBROSPINAL FLUID CELL COUNT Routine 10/01/2023 6:01 PM CDT CELL COUNT WITH REFLEX TO DIFFERENTIAL, CSF Routine 10/01/2023 6:01 PM CDT CEREBROSPINAL FLUID CELL COUNT Routine 10/01/2023 6:01 PM CDT CSF, GLUCOSE Routine 10/01/2023 6:01 PM CDT CSF TOTAL PROTEIN Routine 10/01/2023 6:0 1 PM CDT CELL COUNT WITH REFLEX TO DIFFERENTIAL, CSF Routine 10/01/2023 6:01 PM CDT CSF LAB ORDERS STAT 10/01/2023 6:01 PM CDT IV INSERTION(LAB TO PERFORM) Routine 10/01/2023 3:[address] HEAD WO IV CONT STAT 10/01/2023 2: 19 PM CDT COMPLETE BLOOD COUNT-NO DIFF STAT 10/01/2023 1:31 PM CDT IV INSERTION(LAB TO PERFORM) STAT 10/01/2023 9:57 AM CDT BASIC METABOLIC PANEL STAT Add-On 10/01/2023 7:24 AM CDT C-REACTIVE PROTEIN Routine 10/01/2023 7: 24 AM CDT INPATIENT TELEMETRY MONITORING Routine 09/30/2023 7:00 AM CDT INPATIENT TELEMETRY MONITORING Routine 09/30/2023 1:04 AM CDT INPATIENT TELEMETRY MONITORING Routine 09/30/2023 1:04 AM CDT INPATIENT TELEMETRY MONITORING Routine 09/30/2023 1:04 AM CDT MRSA, MOLECULAR DETECTION Routine 09/29/2023 12:55 PM CDT IV INSERTION(LAB TO PERFORM) Routine 09/29/2023 4:44 AM CDT C-REACTIVE PROTEIN Routine 09/29/2023 4: 44 AM CDT BASIC METABOLIC PANEL Routine 09/29/2023 4:44 AM CDT COMPLETE BLOOD COUNT-NO DIFF Routine 09/29/2023 4:44 AM CDT ANSHUL W MAILOUT Routine 09/28/2023 11:59 PM CDT Bradycardia INPATIENT TELEMETRY MONITORING Routine 09/28/2023 11:02 PM CDT MR BRAIN W/WO IV CONT STAT 09/28/2023 8:03 PM CDT C-REACTIVE PROTEIN STAT Add-On 09/28/2023 5: 07 PM CDT COMPLETE BLOOD COUNT-NO DIFF STAT 09/28/2023 5:07 PM CDT BASIC METABOLIC PANEL STAT 09/28/2023 5:07 PM CDT COMPLETE BLOOD COUNT-W/DIFF Routine 09/27/2023 1:44 PM [...] ENDOSCOPY, COLON, SCREENING/DIAGNOSTIC Routine 04/22/2022 10:39 AM SOCIAL SCIENCES DEPARTMENT CHAIR Screen for colon cancer HGB A1C Routine 03/24/2022 11:33 AM SOCIAL SCIENCES DEPARTMENT CHAIR Routine general medical examination at [facility] MM MAMMOGRAM SCREENING BILAT W 3D VASILIY W CAD Routine 11/04/2021 9:10 AM CDT Visit for screening mammogram PAP TEST Routine 10/16/2018 11:40 AM CDT Cervical cancer screening HIV ANTIBODY Routine 07/30/2003 12:02 PM CDT HEPATITIS C ANTIBODY, WITH REFLEX Routine 06/26/2003 4:06 PM CDT from Last 3 Months or Most Recently Relevant to Health Maintenance Results * Glucose, Whole Blood POCT (10/04/2023 6:15 PM CDT) Only the most recent of35 resultswithin the time period is included. Glucose, Whole Blood 81 70 - 180 mg/dL 10/04/2023 6:16 PM CDT [facility] Performing Location [facility] [id number] 10/04/2023 6:16 PM CDT [facility] Blood 10/04/2023 6:15 PM CDT 10/04/2023 6:16 PM CDT Lexis Simpson PA-C LAB_[address] [address], [facility] * IR Injection Epidural Blood Patch (10/04/2023 2:29 PM CDT) Anatomical Region Laterality Modality Spine X-Ray Angiograph y 10/04/2023 2:29 PM CDT Narrative 10/04/2023 8:01 PM CDT [facility] FLUOROSCOPICALLY GUIDED LUMBAR EPIDURAL BLOOD PATCH 10/04/2023 2:29 PM CDT 1. FLUOROSCOPICALLY-GUIDED LUMBAR EPIDURAL BLOOD PATCH INDICATION: 58-year-old woman with recent lumbar puncture. The patient now has a spinal headache that has been poorly controlled despite conservative measures such as bed rest, hydration, and caffeine intake. Epidural blood patch has been requested for further spinal headache treatment. CONSENT: The procedure and its indications, major risks, benefits, and alternatives were discussed. Risks including, but not limited to, pain, headache, hemorrhage, infection, nerve damage, spinal cord damage, nontarget blood infusion into the thecal sac causing nerve inflammation/pain, and allergic reaction were discussed. Understanding was acknowledged, and a signed informed consent was obtained. FLUOROSCOPIC TIME: 0.7 minutes AIR KERMA: 33.4 mGy ESTIMATED BLOOD LOSS: Minimal PERFORMING PHYSICIAN(S): Juwan Cai M.D. PROCEDURE: The patient was placed in the prone position upon the fluoroscopic table. The skin of the back was prepped and draped in sterile fashion. Using fluoroscopic guidance, the L3-4 level was localized. The skin was infiltrated with 1% lidocaine. Using direct fluoroscopic visualization and loss of resistance technique, a Tuohy epidural needle was advanced into dorsal epidural space at the L3-4 level using a posterior midline interspinous approach. 1 mL of Omnipaque 180 contrast was infused through the needle. Subsequent spot images confirmed that the needle tip is in the dorsal epidural space. 20 mL of blood obtained from the patient's IV was then infused through the needle and into the epidural space. Fluoroscopic spot images confirmed some wash-out of the epidural contrast. The needle was then removed. A dressing was applied. The procedure appeared well-tolerated. There was no apparent complication. CONCLUSION: 1. Technically successful fluoroscopically-guided lumbar epidural blood patch for treatment of persistent spinal headache despite conservative management. CPT codes included for physician reference only: [id number] Procedure Note Juwan Cai MD - 10/04/2023 [facility] FLUOROSCOPICALLY GUIDED LUMBAR EPIDURAL BLOOD PATCH 10/04/2023 2:29 PM CDT 1. FLUOROSCOPICALLY-GUIDED LUMBAR EPIDURAL BLOOD PATCH INDICATION: 58-year-old woman with recent lumbar puncture. The patient nowhas a spinal headache that has been poorly controlled despite conservativemeasures such as bed rest, hydration, and caffeine intake. Epidural bloodpatch has been requested for further spinal headache treatment. CONSENT: The procedure and its indications, major risks, benefits, andalternatives were discussed. Risks including, but not limited to, pain,headache, hemorrhage, infection, nerve damage, spinal cord damage,nontarget blood infusion into the thecal sac causing nerveinflammation/pain, and allergic reaction were discussed. Understanding wasacknowledged, and a signed informed consent was obtained. FLUOROSCOPIC TIME: 0.7 minutes AIR KERMA: 33.4 mGy ESTIMATED BLOOD LOSS: Minimal PERFORMING PHYSICIAN(S): Juwan Cai M.D. PROCEDURE: The patient was placed in the prone position upon thefluoroscopic table. The skin of the back was prepped and draped in sterilefashion. Using fluoroscopic guidance, the L3-4 level was localized. Theskin was infiltrated with 1% lidocaine. Using direct fluoroscopicvisualization and loss of resistance technique, a Tuohy epidural needlewas advanced into dorsal epidural space at the L3-4 level using aposterior midline interspinous approach. 1 mL of Omnipaque 180 contrastwas infused through the needle. Subsequent spot images confirmed that theneedle tip is in the dorsal epidural space. 20 mL of blood obtained fromthe patient's IV was then infused through the needle and into the epiduralspace. Fluoroscopic spot images confirmed some wash-out of the epiduralcontrast. The needle was then removed. A dressing was applied. Theprocedure appeared well-tolerated. There was no apparent complication. CONCLUSION: 1. Technically successful fluoroscopically-guided lumbar epidural bloodpatch for treatment of persistent spinal headache despite conservativemanagement. CPT codes included for physician reference only: [id number] Chiquita Dawson [employer], [employer] RAD IR * XR Portable Chest 1 View (10/01/2023 11:34 PM CDT) Anatomical Region Laterality Modality Chest, Lung Computed Radiogr aphy 10/01/2023 11:3 4 PM CDT Narrative 10/01/2023 11:36 PM CDT EXAM: XR PORTABLE CHEST 1 VIEW LOCATION: [facility] DATE: 10/01/2023 INDICATION: PICC placement, LINE/TUBE PLACEMENT COMPARISON: None. IMPRESSION: Heart size at upper limits normal for portable technique. Right chest port catheter tip at mid SVC level. Probable calcified left central granuloma. No visible pneumothorax or pleural effusion. Procedure Note Frank Stokes MD - 10/01/2023 EXAM: XR PORTABLE CHEST 1 VIEW LOCATION: [facility] DATE: 10/01/2023 INDICATION: PICC placement, LINE/TUBE PLACEMENT COMPARISON: None. IMPRESSION: Heart size at upper limits normal for portable technique.Right chest port catheter tip at mid SVC level. Probable calcified leftcentral granuloma. No visible pneumothorax or pleural effusion. Lubna Sommer PA-C RAD PORTABLE * FL Lumbar Puncture (For CSF) (10/01/2023 6:23 PM CDT) Anatomical Region Laterality Modality Spine, L-Spine Radio Fluoroscop y 10/01/2023 6:23 PM CDT Narrative 10/01/2023 6:28 PM CDT FLUOROSCOPICALLY-GUIDED LUMBAR PUNCTURE 10/01/2023 6:23 PM CDT INDICATION: 58-year-old patient with recent keyhole craniotomy for meningioma resection. Now has impetigo of facial skin. ??Severe headache. Lumbar puncture has been requested to obtain cerebrospinal fluid (CSF) for analysis. CONSENT: The procedure and its indications, major risks, benefits, and alternatives were discussed. Risks include, but are not limited to, pain, headache, hemorrhage, infection, nerve damage, spinal cord damage, and allergic reaction. Understanding was acknowledged, and informed consent was obtained. FLUOROSCOPIC TIME: 0.4 minutes NUMBER OF IMAGES: 1 AIR KERMA: 7.8 mGy ESTIMATED BLOOD LOSS: Trace PROCEDURE: The patient was placed in prone position upon the fluoroscopic table. The skin of the back was prepped and draped in sterile fashion. ??Using fluoroscopic guidance, the L4-L5 level was localized. The skin was infiltrated with 1% lidocaine. Using direct fluoroscopic visualization, a 22 gauge spinal needle was advanced into the thecal sac at the L4-L5 level. An opening pressure measurement of 18 cm H20 was obtained. 13 mL of grossly clear CSF was passively obtained in total. This was divided between four labeled tubes. The needle was then removed. A dressing was applied. The procedure appeared well-tolerated and was without apparent complication. CONCLUSION: 1. ??Fluoroscopically-guided lumbar puncture yields 13 mL of grossly clear cerebrospinal fluid. 2. ??An opening pressure of 18 cm H2O was measured with the patient in prone position. Procedure Note Kev Rojas III, MD - 10/01/2023 FLUOROSCOPICALLY-GUIDED LUMBAR PUNCTURE 10/01/2023 6:23 PM CDT INDICATION: 58-year-old patient with recent keyhole craniotomy formeningioma resection. Now has impetigo of facial skin. Severe headache.Lumbar puncture has been requested to obtain cerebrospinal fluid (CSF) foranalysis. CONSENT: The procedure and its indications, major risks, benefits, andalternatives were discussed. Risks include, but are not limited to, pain,headache, hemorrhage, infection, nerve damage, spinal cord damage, andallergic reaction. Understanding was acknowledged, and informed consentwas obtained. FLUOROSCOPIC TIME: 0.4 minutes NUMBER OF IMAGES: 1 AIR KERMA: 7.8 mGy ESTIMATED BLOOD LOSS: Trace PROCEDURE: The patient was placed in prone position upon the fluoroscopictable. The skin of the back was prepped and draped in sterile fashion.Using fluoroscopic guidance, the L4-L5 level was localized. The skin wasinfiltrated with 1% lidocaine. Using direct fluoroscopic visualization, a22 gauge spinal needle was advanced into the thecal sac at the L4-J3xapsf. An opening pressure measurement of 18 cm H20 was obtained. 13 mL ofgrossly clear CSF was passively obtained in total. This was dividedbetween four labeled tubes. The needle was then removed. A dressing wasapplied. The procedure appeared well-tolerated and was without apparentcomplication. CONCLUSION: 1. Fluoroscopically-guided lumbar puncture yields 13 mL of grossly clearcerebrospinal fluid. 2. An opening pressure of 18 cm H2O was measured with the patient inprone position. Kev Rojas III, MD RAD [place] * CSF Meningitis / Encephalitis PCR panel (10/01/2023 6:01 PM CDT) Pathologist [facility] Escherichia coli K1 Not Detected Not Detected 10/02/2023 12:03 AM CDT [facility] Haemophilus influenzae Not Detected Not Detected 10/02/2023 12:03 AM CDT [facility] Listeria monocytogenes Not Detected Not Detected 10/02/2023 12:03 AM CDT [facility] Neisseria ??meningitidis ? Not Detected Not Detected 10/02/2023 12:03 AM CDT [facility] Streptococcus agalactiae? Not Detected Not Detected 10/02/2023 12:03 AM CDT [facility] Streptococcus pneumoniae? Not Detected Not Detected 10/02/2023 12:03 AM CDT [facility] Cytomegalovirus (CMV) Not Detected Not Detected 10/02/2023 12:03 AM CDT [facility] Enterovirus?? Not Detected Not Detected 10/02/2023 12:03 AM CDT [facility] Herpes simplex virus 1 (HSV1) Not Detected Not Detected 10/02/2023 12:03 AM CDT [facility] Herpes simplex virus 2 (HSV2) Not Detected Not Detected 10/02/2023 12:03 AM CDT [facility] Human Herpes virus 6 (HHV-6) Not Detected Not Detected 10/02/2023 12:03 AM CDT [facility] Human parechovirus Not Detected Not Detected 10/02/2023 12:03 AM CDT [facility] Varicella zoster virus (VZV) Not Detected Not Detected 10/02/2023 12:03 AM CDT [facility] Cryptococcus ??neoformans/jam i Not Detected Not Detected 10/02/2023 12:03 AM CDT [facility] CSF 10/01/2023 6:01 PM CDT 10/01/2023 6:32 PM CDT [facility] - 10/02/2023 12:03 AM CDT This test is a qualitative multiplexed nucleic acid-based polymerase chain reaction (PCR) in vitro diagnostic test. This panel is designed for rapid diagnosis of suspected meningitis or encephalitis and will only detect the above listed organisms. All herpes viruses detected by this panel (HSV1/2, VZV, HHV-6 and CMV) are known to establish latency so detection may represent a recent primary infection, reactivation with disease, reactivation without disease or latent detection in cells present in the CSF. LIMITATIONS: West Nile virus and other arboviruses ([place] virus, [place], Eastern or Western equine encephalitis viruses, etc) are NOT identified by this test. This panel does NOT detect all possible bacterial organisms or indicate antimicrobial sensitivity.Non K1 strains of E coli are not detected. Non-encapsulated strains of Neisseria meningitidis are not detected. Routine CSF Culture will be ordered separately in ALL cases if this panel is ordered. Mycobacteria tuberculosis (TB) cultures must be ordered separately if suspected. Lubna Sommer PA-C LAB_1 [facility] [address] [place], [place] [address] * Cerebrospinal Fluid Cell Count (10/01/2023 6:01 PM CDT) Only the most recent of2 resultswithin the time period is included. Type CSF 10/01/2023 9:28 PM CDT [facility] Source Cerebrospinal Fluid 10/01/2023 9:28 PM CDT [facility] CSF Tube Number 4 4 9:28 PM CDT [facility] Color Colorless Colorless 10/01/2023 9:28 PM [facility] Appearance Clear Clear 10/01/2023 9:28 PM T [facility] CSF Xanthochromia Absent Absent 10/01/2023 9:28 PM T [facility] Red Blood Cells 9 /uL 4 9:28 PM T [facility] Comment:The reference interv al has not been established. The test result must be integrated into the clinical context for interpretation. Total Nucleated Cells 4 /uL 10/01/2023 9:28 PM T [facility] Comment:The reference interv al has not been established. The test result must be integrated into the clinical context for interpretation. CSF CEREBROSPINAL FLUID / Unknown 10/01/2023 6:01 PM CDT 10/01/2023 6:33 PM CDT Lubna Sommer PA-C LAB_1 Performing Organization Address [facility] Co de Phone Number [address] * Cerebrospinal Fluid Manual Differential (10/01/2023 6:01 PM CDT) Pathologist [facility] Neutrophil % 1 % 10/01/2023 9:12 PM CDT [facility] Lymphocyte % 80 % 10/01/2023 9:12 PM CDT [facility] Monocyte/Macrop miguel % 19 % 10/01/2023 9:12 PM CDT [facility] CSF CEREBROSPINAL FLUID / Unknown 10/01/2023 6:01 PM CDT 10/01/2023 6:32 PM CDT Lubna Sommer PA-C LAB_1 Performing Organization Address [facility]/ZIP Co de Phone Number [address] * Spinal Fluid Culture & Smear (10/01/2023 6:01 PM CDT) Spinal Fluid Culture & Smear No growth after 3 days 10/04/2023 9:22 PM [facility] Gram Smear Cytospin Preparation: [facility] Smear PMN's Present 10/04/2023 9:22 PM [facility] Gram Smear No Organisms Seen 10/04/2023 9:22 PM CDT [facility] CSF LUMBAR PUNCTURE / Unknown 10/01/2023 6:01 PM CDT 10/01/2023 8:07 PM CDT Lubna Sommer PA-C LAB_1 Performing Organization Address [facility]/ZIP Co de Phone Number [address] * CSF Lab Orders (10/01/2023 6:01 PM CDT) CSF/BF Comment CSF Body Fluid received in lab. Please see separate orders for details. 10/01/2023 8:38 PM T [facility] Volume (ml) 13 mL 10/01/2023 8:38 PM CDT [facility] CSF LUMBAR PUNCTURE / Unknown 10/01/2023 6:01 PM CDT 10/01/2023 6:20 PM CDT Lubna Sommer PA-C LAB_1 Performing Organization Address [facility] Co de Phone Number [address] * CSF Glucose (10/01/2023 6:01 PM CDT) Glucose, CSF 64 40 - 70 mg/dL 10/01/2023 7:29 PM CDT [facility] CSF 10/01/2023 6:01 PM CDT 10/01/2023 6:32 PM CDT Lubna Sommer PA-C LAB_1 Performing Organization Address [facility] Co de Phone Number [address] * CSF Total Protein (10/01/2023 6:01 PM CDT) Total Protein, CSF 26 15 - 45 mg/dL 10/01/2023 7:29 PM CDT [facility] CSF 10/01/2023 6:01 PM CDT 10/01/2023 6:32 PM CDT Lubna Sommer PA-C LAB_1 Performing Organization Address [facility] Co de Phone Number [address] * IV Insertion, LST Perform (10/01/2023 3:05 PM CDT) Only the most recent of3 resultswithin the time period is included. IV INSERTION, LST PERFORM (LAB) Done 10/01/2023 5:00 PM CDT [facility] Other Specimen Type IV Start / Unknown 10/01/2023 3:05 PM CDT 10/01/2023 3:50 PM CDT Lubna Sommer PA-C LAB_1 Performing Organization Address [facility] de Phone Number [address] * CT Head WO IV Cont (10/01/2023 2:19 PM CDT) Anatomical Region Laterality Modality Head Computed Tomogra phy 10/01/2023 2:19 PM CDT Narrative 10/01/2023 3:02 PM CDT EXAM: CT HEAD WO IV CONT LOCATION: [facility] DATE: 10/01/2023 INDICATION: Acute headache COMPARISON: 09/28/2023 brain MRI. TECHNIQUE: Routine CT Head without IV contrast. Multiplanar reformats. Dose reduction techniques were used. 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 With this, there is a redemonstrated heterogeneous extra- axial fluid collection deep to the craniotomy measuring up to 9 mm AP. This is relatively unchanged. Operative bed is overall unchanged in size. No new extra-axial collection. Encephalomalacia at the parasagittal inferior right frontal lobe is unchanged. Nondilated ventricles. VISUALIZED ORBITS/SINUSES/MASTOIDS: No intraorbital abnormality. Small amount of opacification in the ethmoid air cells. No middle ear or mastoid effusion. BONES/SOFT TISSUES: Redemonstrated postoperative changes to the midline inferior frontal calvarium. Small amount of soft tissue swelling in the overlying frontal scalp. IMPRESSION: 1. 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 Postoperative changes are evaluated to overall better effect on recent brain MRI, and appear overall unchanged. 2. ??No superimposed acute intracranial abnormality elsewhere. Procedure Note Andriy Espinosa MD - 10/01/2023 EXAM: CT HEAD WO IV CONT LOCATION: [facility] DATE: 10/01/2023 INDICATION: Acute headache COMPARISON: 09/28/2023 brain MRI. TECHNIQUE: Routine CT Head without IV contrast. Multiplanar reformats.Dose reduction techniques were used. FINDINGS: INTRACRANIAL CONTENTS: Redemonstrated postoperative changes from planumsphenoidale meningioma resection. With this, there is a redemonstratedheterogeneous extra- axial fluid collection deep to the craniotomymeasuring up to 9 mm AP. This is relatively unchanged. Operative bed isoverall unchanged in size. No new extra-axial collection. Encephalomalaciaat the parasagittal inferior right frontal lobe is unchanged. Nondilatedventricles. VISUALIZED ORBITS/SINUSES/MASTOIDS: No intraorbital abnormality. Smallamount of opacification in the ethmoid air cells. No middle ear or mastoideffusion. BONES/SOFT TISSUES: Redemonstrated postoperative changes to the midlineinferior frontal calvarium. Small amount of soft tissue swelling in theoverlying frontal scalp. IMPRESSION: 1. Redemonstrated postoperative changes from a planum sphenoidalemeningioma resection. Postoperative changes are evaluated to overallbetter effect on recent brain MRI, and appear overall unchanged. 2. No superimposed acute intracranial abnormality elsewhere. Lubna Sommer PA-C RAD CT * Complete Blood Count-No Diff (10/01/2023 1:31 PM CDT) Only the most recent of10 resultswithin the time period is included. WBC 10.2 3.5 - 10.5 x10(9)/L 10/01/2023 1:41 PM CDT [facility] RBC 4.28 3.90 - 5.03 x10(12)/L 10/01/2023 1:41 PM [facility] Hemoglobin 12.0 12.0 - 15.5 g/dL 10/01/2023 1:41 PM [facility] HCT 37.1 34.9 - 44.5 % 10/01/2023 1:41 PM [facility] MCV 86.7 80.0 - 100.0 fL 10/01/2023 1:41 PM [facility] MCH 28.0 27.6 - 33.3 pg 10/01/2023 1:41 PM [facility] MCHC 32.3 31.5 - 35.2 g/dL 10/01/2023 1:41 PM [facility] RDW 13.9 11.9 - 15.5 % 10/01/2023 1:41 PM [facility] Platelets 245 150 - 450 x10(9)/L 10/01/2023 1:41 PM [facility] Automated NRBC 0 <=0 /100 WBC 10/01/2023 1:41 PM [facility] Blood Venipuncture / Unknown 10/01/2023 1:31 PM CDT 10/01/2023 1:37 PM CDT Lubna Sommer PA-C LAB_1 Performing Organization Address City/State/[facility] Co de Phone Number [address] [address], [facility] * (ABNORMAL) Basic Metabolic Panel (10/01/2023 7:24 AM CDT) Only the most recent of11 resultswithin the time period is included. Sodium 137 136 - 145 mmol/L 10/01/2023 1:25 PM [facility] Potassium 3.7 3.5 - 5.1 mmol/L 10/01/2023 1:25 PM [facility] Chloride 106 98 - 109 mmol/L 10/01/2023 1:25 PM [facility] CO2 24 20 - 29 mmol/L 10/01/2023 1:25 PM [facility] Anion Gap 7 6 - 16 mmol/L 10/01/2023 1:25 PM [facility] Calcium 8.8 8.4 - 10.4 mg/dL 10/01/2023 1:25 PM [facility] BUN 9 7 - 26 mg/dL 10/01/2023 1:25 PM [facility] Creatinine 0.67 0.55 - 1.02 mg/dL 10/01/2023 1:25 PM [facility] Glucose 119(H) 70 - 100 mg/dL 10/01/2023 1:25 PM [facility] Comment:The given reference range is for the fasting state. Non-fasting reference range for glucose is 70 - 180 mg/dL. GFR, Estimated >60 >60 mL/min/1.7 3m2 10/01/2023 1:25 PM [facility] Blood Venipuncture / Unknown 10/01/2023 7:24 AM CDT 10/01/2023 7:28 AM CDT Lubna Sommer PA-C LAB_1 Performing Organization Address [facility]/ZIP Co de Phone Number [address] * (ABNORMAL) C-Reactive Protein (10/01/2023 7:24 AM CDT) Only the most recent of4 resultswithin the time period is included. C-Reactive Protein 2.2(H) 0.0 - 0.5 mg/dL 10/01/2023 7:58 AM [facility] Blood Venipuncture / Unknown 10/01/2023 7:24 AM CDT 10/01/2023 7:28 AM CDT Rosalina Hannah MD LAB_[address] * INPATIENT TELEMETRY MONITORING (09/30/2023 7:00 AM CDT) Only the most recent of19 resultswithin the time period is included. TELE P-R INTERVAL 0.23 [facility] TELE QRS DURATION 0.09 [facility] TELE R-R INTERVAL 0.99 [facility] TELE INTERPRETATION Sinus Rhythm with 1st AVB/RMT,SS /RN,LB [facility] 09/30/2023 7:00 AM CDT Narrative [facility] - 09/30/2023 11:07 AM CDT Sinus Rhythm ??with 1st AVB/RMT,SS/RN,LB Interface Provider EKG Performing Organization Address [facility] Co de Phone Number [facility] [address] [place] [id number] * MRSA, Molecular Detection (09/29/2023 12:55 PM CDT) MRSA Not Detected Not Detected 09/29/2023 2:25 PM CDT [facility] Swab (Source Required) ENTIRE ANTERIOR NARIS / Unknown Non-blood Collection / Unknown 09/29/2023 12:55 PM CDT 09/29/2023 1:00 PM CDT Narrative [facility] - 09/29/2023 2:25 PM CDT Methodology: Qualitative real-time PCR assay Lubna Sommer PA-C LAB_1 Performing Organization Address [facility] Co de Phone Number [address] [address], [facility] * ANSHUL W MAILOUT [id number] (09/28/2023 11:59 PM CDT) 09/28/2023 11:5 9 PM CDT Narrative [facility] - 10/03/2023 1:54 PM CDT 4d 7h 13m Baseline - NSR with average HR 62, max HR 97 No patient triggered events <1% PACs <1% PVCs Confirmed by Abran Lazo ([id number]) on 10/03/2023 1:54:19 PM Procedure Note Abran Lazo MD - 10/03/2023 4d 7h 13m Baseline - NSR with average HR 62, max HR 97 No patient triggered events <1% PACs <1% PVCs Confirmed by Abran Lazo ([id number]) on 10/03/2023 1:54:19 PM Chiquita Smith MD CARDIOLOGY/AR [facility] [address] [place] [address] * MR Brain W/WO IV Cont (09/28/2023 8:03 PM CDT) Only the most recent of2 resultswithin the time period is included. Anatomical Region Laterality Modality Head Magnetic Resonan ce 09/28/2023 8:03 PM CDT Narrative 09/28/2023 9:38 PM CDT EXAM: MR BRAIN W/WO IV CONT LOCATION: [facility] DATE: 09/28/2023 INDICATION: Status post bifrontal craniotomy with meningioma, concern for intracranial infection. COMPARISON: MRI 09/15/2023. CT 09/14/2023. MRI 09/13/2023. CONTRAST: 7.5 mL Gadavist. TECHNIQUE: Routine multiplanar multisequence head MRI without and with intravenous contrast. FINDINGS: INTRACRANIAL CONTENTS: There are postoperative changes of eyebrow craniotomy and frontal sinus exenteration for resection of a planum sphenoidale meningioma. Curvilinear enhancement along the resection margins has increased in the interval, likely representing subacute evolution of ischemic changes demonstrated on 09/15/2023. No findings specific for residual tumor. Small volume of residual extra-axial fluid along the anteromedial margins of the frontal lobes. Vasogenic edema in the right frontal lobe has decreased in the interval. Prominent pachymeningeal enhancement along the frontal convexities is similar to prior. Elsewhere, it has slightly decreased, likely representing resolving reactive postoperative change. There is no pattern of diffusion restriction to suggest new infarction. There is no new intracranial mass effect. There is no evidence for new intracranial hemorrhage. The major intracranial flow voids are unremarkable. The ventricles, sulci and cisterns are appropriate in size and configuration. The cerebellar tonsils are appropriately positioned with a patent foramen magnum. SELLA: No abnormality accounting for technique. OSSEOUS STRUCTURES/SOFT TISSUES: Unremarkable marrow signal. Postoperative changes as above. Greater thickening and enhancement of the soft tissues at the presumed incision site than on 09/15/2023. Limited images of the upper cervical spine demonstrate no acute abnormality. ?? ORBITS: No abnormality accounting for technique. SINUSES/MASTOIDS: Frontal sinus exenteration changes with fluid persisting in the surgical defect. There is slightly increased enhancement along these frontal sinus surgical margins. The mastoid air cells are unremarkable in signal. IMPRESSION: 1. ??Postoperative changes of eyebrow craniotomy and frontal sinus exenteration for planum sphenoidale meningioma resection. 2. ??Increased enhancement along the resection margins is favored to reflect subacute evolution of ischemic changes initially demonstrated on 09/15/2023. Decreased vasogenic edema and absence of progressive diffusion abnormalities lessen the likelihood of infectious change at the resection site but do not exclude it. 3. ??Persistent fluid in the frontal sinus exenteration bed. There is increased enhancement along the margins of this fluid. Infection not excluded by MRI. 4. ??Increased soft tissue thickening and edema at the presumed incision site, which could reflect infection in the appropriate clinical context. 5. ??No findings specific for residual tumor. Procedure Note Timur Méndez MD - 09/28/2023 EXAM: MR BRAIN W/WO IV CONT LOCATION: [facility] DATE: 09/28/2023 INDICATION: Status post bifrontal craniotomy with meningioma, concern forintracranial infection. COMPARISON: MRI 09/15/2023. CT 09/14/2023. MRI 09/13/2023. CONTRAST: 7.5 mL Gadavist. TECHNIQUE: Routine multiplanar multisequence head MRI without and withintravenous contrast. FINDINGS: INTRACRANIAL CONTENTS: There are postoperative changes of eyebrowcraniotomy and frontal sinus exenteration for resection of a planumsphenoidale meningioma. Curvilinear enhancement along the resectionmargins has increased in the interval, likely representing subacuteevolution of ischemic changes demonstrated on 09/15/2023. No findingsspecific for residual tumor. Small volume of residual extra-axial fluidalong the anteromedial margins of the frontal lobes. Vasogenic edema inthe right frontal lobe has decreased in the interval. Prominentpachymeningeal enhancement along the frontal convexities is similar toprior. Elsewhere, it has slightly decreased, likely representing resolvingreactive postoperative change. There is no pattern of diffusionrestriction to suggest new infarction. There is no new intracranial masseffect. There is no evidence for new intracranial hemorrhage. The majorintracranial flow voids are unremarkable. The ventricles, sulci andcisterns are appropriate in size and configuration. The cerebellar tonsilsare appropriately positioned with a patent foramen magnum. SELLA: No abnormality accounting for technique. OSSEOUS STRUCTURES/SOFT TISSUES: Unremarkable marrow signal. Postoperativechanges as above. Greater thickening and enhancement of the soft tissuesat the presumed incision site than on 09/15/2023. Limited images of theupper cervical spine demonstrate no acute abnormality. ORBITS: No abnormality accounting for technique. SINUSES/MASTOIDS: Frontal sinus exenteration changes with fluid persistingin the surgical defect. There is slightly increased enhancement alongthese frontal sinus surgical margins. The mastoid air cells areunremarkable in signal. IMPRESSION: 1. Postoperative changes of eyebrow craniotomy and frontal sinusexenteration for planum sphenoidale meningioma resection. 2. Increased enhancement along the resection margins is favored toreflect subacute evolution of ischemic changes initially demonstrated on09/15/2023. Decreased vasogenic edema and absence of progressive diffusionabnormalities lessen the likelihood of infectious change at the resectionsite but do not exclude it. 3. Persistent fluid in the frontal sinus exenteration bed. There isincreased enhancement along the margins of this fluid. Infection notexcluded by MRI. 4. Increased soft tissue thickening and edema at the presumed incisionsite, which could reflect infection in the appropriate clinical context. 5. No findings specific for residual tumor. Sussy Villeda [employer]IER, [employer] RAD MRI * (ABNORMAL) Complete Blood Count-W/Diff (09/27/2023 1:44 PM CDT) Only the most recent of2 resultswithin the time period is included. WBC 11.2(H) 3.5 - 10.5 x10(9)/L 09/27/2023 6:01 PM [facility] RBC 4.22 3.90 - 5.03 x10(12)/L 09/27/2023 6:01 PM [facility] Hemoglobin 11.8(L) 12.0 - 15.5 g/dL 09/27/2023 6:01 PM [facility] HCT 37.5 34.9 - 44.5 % 09/27/2023 6:01 PM [facility] MCV 88.9 80.0 - 100.0 fL 09/27/2023 6:01 PM [facility] MCH 28.0 27.6 - 33.3 pg 09/27/2023 6:01 PM [facility] MCHC 31.5 31.5 - 35.2 g/dL 09/27/2023 6:01 PM [facility] RDW 14.1 11.9 - 15.5 % 09/27/2023 6:01 PM [facility] Platelets 258 150 - 450 x10(9)/L 09/27/2023 6:01 PM [facility] Automated NRBC 0 <=0 /100 WBC 09/27/2023 6:01 PM [facility] Neutrophil Absolute 6.6 1.7 - 7.0 10(9)/L 09/27/2023 6:01 PM [facility] Lymphocyte Absolute 2.9 1.0 - 4.8 10(9)/L 09/27/2023 6:01 PM [facility] Monocyte Absolute 1.1(H) 0.2 - 0.9 10(9)/L 09/27/2023 6:01 PM [facility] Eosinophil Absolute 0.3 0.0 - 0.5 10(9)/L 09/27/2023 6:01 PM [facility] Basophil Absolute 0.1 0.0 - 0.3 10(9)/L 09/27/2023 6:01 PM [facility] Immature Granulocyte % 2.6(H) 0.0 - 0.5 % 09/27/2023 6:01 PM [facility] Blood Venipuncture / Unknown 09/27/2023 1:44 PM CDT 09/27/2023 1:44 PM CDT Jg Munguia MD LAB_[address] [address], [facility] * Magnesium (09/21/2023 6:29 AM CDT) Only the most recent of9 resultswithin the time period is included. Magnesium 2.1 1.6 - 2.6 mg/dL 09/21/2023 7:08 AM T [facility] Blood Venipuncture / Unknown 09/21/2023 6:29 AM CDT 09/21/2023 6:35 AM CDT Juan Dudley MD LAB_1 Performing Organization Address [facility] Co ak Phone Number [address] * Extra Lavender top tube (09/20/2023 6:39 AM CDT) Pathologist [facility] Extra Lavender Top Drawn Specimen will be held for 3 days 09/20/2023 8:00 AM CDT [facility] Blood Venipuncture / Unknown 09/20/2023 6:39 AM CDT 09/20/2023 6:59 AM CDT Jg Munguia MD LAB_1 Performing Organization Address [facility] Phone [address] * Liver Panel(Hepatic Function Panel) (09/20/2023 6:39 AM CDT) [facility] Alkaline Phosphatase 71 40 - 150 U/L 09/20/2023 7:39 AM CDT [facility] Bilirubin, Total 0.2 0.2 - 1.2 mg/dL 09/20/2023 7:39 AM [facility] Bilirubin, Direct 0.1 0.0 - 0.5 mg/dL 09/20/2023 7:39 AM [facility] AST (SGOT) 10 10 - 40 U/L 09/20/2023 7:39 AM [facility] ALT (SGPT) 28 <=55 U/L 09/20/2023 7:39 AM [facility] Protein, Total 6.5 6.4 - 8.3 g/dL 09/20/2023 7:39 AM [facility] Albumin 3.5 3.5 - 5.0 g/dL 09/20/2023 7:39 AM [facility] Blood Venipuncture / Unknown 09/20/2023 6:39 AM CDT 09/20/2023 6:58 AM CDT Chiquita Smith MD LAB_1 Performing Organization Address [facility] Co de Phone Number [address] [address], [facility] * EJECTION FRACTION (09/19/2023 1:43 PM CDT) EF 70 % PROSOLV EF test type ECHO PROSOLV 09/19/2023 1:43 PM CDT Chiquita Smith MD HEART CENTER CATH LA B/RH Performing Organization Address [facility] de Phone Number PROSOLV [address] [place] [address] * Cardiac Routine Echocardiogram (09/19/2023 1:43 PM [...] MD HEART CENTER ECHO/RH Performing Organization Address [facility] Co de Phone Number PROSOLV [address] [place] [address] * ECG 12-Lead Routine (Lab perform) (09/19/2023 9:43 AM CDT) EKG Completed 09/19/2023 12:00 PM CDT [facility] Other Specimen Type Non-blood Collection / Unknown 09/19/2023 9:43 AM CDT 09/19/2023 10:30 AM CDT Chiquita Smith MD LAB_1 Performing Organization Address [facility]/ZIP Co de Phone Number [address] [address], [facility] * Ecg 12-Lead Routine (MUSE) (09/19/2023 9:36 AM CDT) Ventricular Rate 53 BPM MUSE [facility] Atrial Rate 53 BPM [facility] P-R Interval 146 ms [facility] QRS Duration 76 ms [facility] QT 522 ms [facility] QTc 489 ms MUSE [facility] P Jessie 27 degrees MUSE G[facility] R Jessie 1 degrees MUSE [facility] T Jessie 27 degrees MUSE [facility] 09/19/2023 9:36 AM CDT Narrative [facility] - 09/19/2023 10:23 AM CDT Sinus bradycardia Minimal voltage criteria for LVH, may be normal variant Cannot rule out Inferior infarct (cited on or before 26-DEC-2019) Abnormal ECG When compared with ECG of 31-AUG-2023 10:50, SC interval has decreased Confirmed by Anaid Garcia ([id number]) on 09/19/2023 10:23:02 AM Procedure Note Anaid Garcia MD - 09/19/2023 Sinus bradycardia Minimal voltage criteria for LVH, may be normal variant Cannot rule out Inferior infarct (cited on or before 26-DEC-2019) Abnormal ECG When compared with ECG of 31-AUG-2023 10:50, SC interval has decreased Confirmed by Anaid Garcia ([id number]) on 09/19/2023 10:23:02 AM Chiquita Smith MD EKG Performing Organization Address [facility]/State/ZIP Co de Phone Number MUSE [facility] [address] [place] [address] * (ABNORMAL) Lipid Panel & Direct LDL (if Needed) (09/19/2023 6:28 AM CDT) Pathologist [facility] Cholesterol 186 0 - 199 mg/dL 09/19/2023 10:55 PM CDT [facility] Triglyceride 215(H) <=149 mg/dL 09/19/2023 10:55 PM CDT [facility] HDL Cholesterol 37(L) >=40 mg/dL 10:55 PM CDT [facility] LDL, Calculated 106 <130 mg/dL 10:55 PM CDT [facility] Non HDL Chol, Calculated 149 <=159 mg/dL 09/19/2023 10:55 PM CDT [facility] Cholesterol/HDL Ratio 5.0 <=5.0 09/19/2023 10:55 PM CDT [facility] Blood Venipuncture / Unknown 09/19/2023 6:28 AM CDT 09/19/2023 6:59 AM CDT Chiquita Smith MD LAB_1 Performing Organization Address [facility] Co de Phone Number [address] * TSH with reflex to fT4 (not for treatment monitoring) (09/19/2023 6:28 AM CDT) Pathologist [facility] TSH, Reflex 0.92 0.30 - 4.50 uIU/mL 09/19/2023 11:13 PM T [facility] Blood Venipuncture / Unknown 09/19/2023 6:28 AM CDT 09/19/2023 6:59 AM CDT Chiquita Smith MD LAB_1 Performing Organization Address [facility] Co de Phone Number [address] * Phosphorus (09/19/2023 6:28 AM CDT) Only the most recent of6 resultswithin the time period is included. Phosphorus 3.2 2.3 - 4.7 mg/dL 09/19/2023 7:36 AM CDT [facility] Blood Venipuncture / Unknown 09/19/2023 6:28 AM CDT 09/19/2023 6:59 AM CDT Sherman Trivedi MD LAB_1 Performing Organization Address [facility] Co de Phone Number [address] * Potassium (09/14/2023 5:57 PM CDT) Potassium 4.1 3.5 - 5.1 mmol/L 09/14/2023 7:20 PM CDT [facility] Blood Arterial Line / Unknown 09/14/2023 5:57 PM CDT 09/14/2023 6:03 PM CDT Jg Munguia MD LAB_1 Performing Organization Address [facility] Co de Phone Number [address] * A-LINE (09/14/2023 2:31 PM CDT) Narrative [...] AM CDT) Case Report Surgical Pathology ?Case: [id number] ? Authorizing Provider: ??Jg Munguia MD ?Collected: ? 09/14/2023 1130 ? Ordering Location: ? Operating Room ?Received: ?09/14/2023 1136 ? Pathologist: ? Bella Medina MD ? Specimen: ?Brain, Anterior Skull Based Meningioma ? 09/15/2023 2:51 PM [facility] FINAL DIAGNOSIS A. Brain, anterior skull based tumor, excision: Meningioma, WHO grade 1 Comment: The tumor cells are strongly positive for SC immunohistochemical stain and are negative for ER. 09/15/2023 2:51 PM [facility] Clinical Information Meningioma (HRC) 09/15/2023 2:51 PM [facility] Microscopic Description Microscopic examination is performed. 09/15/2023 2:51 PM [facility] Special Stains The stain controls have been reviewed and stain appropriately. 09/15/2023 2:51 PM CDT [facility] Gross Description A: The specimen is received in formalin and labeled with the patient's name and Brain, Anterior Skull Based Meningioma. The specimen consists of 3.8 x 2.1 x 0.7 cm aggregate of pink-red, irregular soft tissue fragments with cautery. The specimen was excised at 11:30 AM, 09/14/2023 and placed into formalin at 12:01 PM, 09/14/2023. Blueprint Reproducer sections are submitted in 7 cassettes. 09/15/2023 2:51 PM CDT [facility] Embedded Images 09/15/2023 2:51 PM CDT [facility] Tissue SPECIMEN FROM BRAIN / Unknown 09/14/2023 11:30 AM CDT 09/14/2023 11:36 AM CDT Jg Munguia MD LAB PATHOLOGY Performing Organization Address City/State/[facility] Co de Phone Number [address] * CT Head WO IV Cont Stealth (09/14/2023 7:45 AM CDT) Anatomical Region Laterality Modality Head Computed Tomogra phy 09/14/2023 7:45 AM CDT Narrative 09/14/2023 2:37 PM CDT EXAM: CT HEAD WO IV CONT STEALTH LOCATION: [facility] DATE: 09/14/2023 INDICATION: Plan for eyebrow craniotomy [...] CT HEAD WO IV CONT STEALTH LOCATION: [facility] DATE: 09/14/2023 INDICATION: Plan [...] Jg Munguia MD RAD CT * Extra [place]/Bank Tube (09/14/2023 5:56 AM CDT) Extra [place]/Bank Tube Drawn Received in BB 09/14/2023 8:08 AM CDT [facility] Blood Venipuncture / Unknown 09/14/2023 5:56 AM CDT 09/14/2023 8:07 AM CDT Bella Medina MD LAB_1 Performing Organization Address City/[facility] Co de Phone Number [facility] [address] * Antibody Screen (09/14/2023 5:52 AM CDT) Antibody Screen Interpretation Negative 09/14/2023 7:00 AM CDT [facility] Blood Venipuncture / Unknown 09/14/2023 5:52 AM CDT 09/14/2023 6:09 AM CDT Mike Davis PA-C LAB_1 Performing Organization Address City/[facility] Co de Phone Number [facility] [address] * Blood Type (09/14/2023 5:52 AM CDT) ABO O 09/14/2023 7:00 AM CDT [facility] RH Positive 09/14/2023 7:00 AM CDT [facility] Blood Venipuncture / Unknown 09/14/2023 5:52 AM CDT 09/14/2023 6:09 AM CDT Mike Davis PA-C LAB_1 Performing Organization Address [facility] de Phone Number [facility] [address] [place] [address] * INR/Protime (09/14/2023 5:52 AM CDT) Protime 13.0 11.8 - 14.6 Seconds 09/14/2023 6:28 AM CDT [facility] INR 1.0 0.9 - 1.1 09/14/2023 6:28 AM CDT [facility] Blood Venipuncture / Unknown 09/14/2023 5:52 AM CDT 09/14/2023 6:10 AM CDT Narrative [facility] - 09/14/2023 6:28 AM CDT If you take an anticoagulant medicine called warfarin, your doctor or clinician may establish a normal range for you that is different from the baseline range shown. Mike Davis PA-C LAB_1 Performing Organization Address [facility] de Phone Number [address] * EKG (09/14/2023) Interface Provider EKG * MR Brain W/WO IV Cont Map Stealth (09/13/2023 10:53 AM CDT) Anatomical Region Laterality Modality Head Magnetic Resonan ce 09/13/2023 10:5 3 AM CDT Narrative 09/14/2023 7:45 AM CDT EXAM: MR BRAIN WITHOUT AND WITH IV CONTRAST MAP STEALTH LOCATION: [facility] DATE: 09/13/2023 INDICATION: Plan for eyebrow [...] Staph Aureus Culture (08/31/2023 11:03 AM CDT) Staph aureus Culture (SACUL) No Staphylococcus aureus Isolated 09/01/2023 2:32 PM CDT [facility] Swab (Source Required) ENTIRE ANTERIOR NARIS / Unknown Non-blood Collection / Unknown 08/31/2023 11:03 AM CDT 08/31/2023 11:06 AM CDT Svitlana Olmos MD LAB_1 Performing Organization Address City/State/[facility] Co de Phone Number [address] * ECG 12 Lead Outpatient (08/31/2023 10:50 AM CDT) Ventricular Rate 61 BPM [facility]USE [facility] Atrial Rate 61 BPM [facility]USE [facility] P-R Interval 214 ms MUSE [facility]HP QRS Duration 84 ms MUSE [facility]HP QT 466 ms MUSE GHP QTc 469 ms MUSE GHP P Jessie 57 degrees MUSE GHP R Jessie 1 degrees MUSE GHP T Jessie 34 degrees MUSE GHP 08/31/2023 10:5 0 [...] AM Svitlana Olmos MD PN ECG ORDERABLES [facility] [address] [place] [id number] * US VENOUS RIGHT UPPER EXTREM DOPPLER [...] * Endoscopy, Colon, Screening/Diagnostic (04/22/2022 10:39 AM SOCIAL SCIENCES DEPARTMENT CHAIR) 04/22/2022 10:3 9 AM SOCIAL SCIENCES DEPARTMENT CHAIR Narrative PN PROVATION - 04/22/2022 10:39 AM SOCIAL SCIENCES DEPARTMENT CHAIR Patient Name: Ruthann Rosas Procedure Date: 04/22/2022 [...] (hyperplastic polyps in the rectum). Providers: ? Bakari Grande, Sherice Vidal Referring MD: ?Svitlana Olmos MD Medicines: ? [...] saturations were ? monitored continuously. The ? [id number] was introduced through ? the anus and [...] the initial medication ? administration until the mechanical sound technician assists with ? initial maneuvers (biopsy / [...] Procedure Code(s): ? --- Professional --- ? 40348, Colonoscopy, flexible; with ? removal of tumor(s), [...] (additional time may ? be reported with 15379, as ? appropriate) Diagnosis Code(s): ? --- Professional --- ? Z83.71, Family history of colonic ? polyps ? K64.9, Unspecified hemorrhoids ? K62.1, Rectal polyp ? K57.30, Diverticulosis of large ? intestine without perforation or ? abscess without bleeding CPT copyright 2020 [employer]. All rights reserved. The codes documented in this report are preliminary and upon digital librarian review may be revised to meet current [...] and oxygen saturations were monitored continuously. The [id number] was introduced through the anus and advanced [...] from the initial medication administration until the mechanical sound technician assists with initial maneuvers (biopsy / polypectomy [...] the patient. Procedure Code(s): --- Professional --- 38435, Colonoscopy, flexible; with removal of tumor(s), polyp(s), or other lesion(s) by snare technique G0500, Moderate sedation services provided by the same physician or other qualified health director of healthcare systems performing a gastrointestinal endoscopic service that sedation supports, requiring the presence of an independent trained observer to assist in the monitoring of the patient's level of consciousness and physiological status; initial 15 minutes of intra-service time; patient age 5 years or older (additional time may be reported with 47579, as appropriate) Diagnosis Code(s): --- Professional --- Z83.71, Family history of colonic polyps K64.9, Unspecified hemorrhoids K62.1, Rectal polyp K57.30, Diverticulosis of large intestine without perforation or abscess without bleeding CPT copyright 2020 [employer]. All rights reserved. The codes documented in this report are preliminary and upon digital librarian review may be revised to meet current compliance requirements. Bakari Grande, 04/22/2022 11:50:58 AM Number of Addenda: 0 Note Initiated On: 04/22/2022 10:39 AM Endoscopy Report Svitlana Olmos MD PN GI PROCEDURE ORD ERABLES PN PROVATION * (ABNORMAL) Hgb A1C (03/24/2022 11:33 AM SOCIAL SCIENCES DEPARTMENT CHAIR) Hemoglobin A1C 6.0(H) <=5.6 % 03/25/2022 8:54 AM SOCIAL SCIENCES DEPARTMENT CHAIR [facility] Blood Venipuncture / Unknown 03/24/2022 11:33 AM SOCIAL SCIENCES DEPARTMENT CHAIR 03/24/2022 11:33 AM SOCIAL SCIENCES DEPARTMENT CHAIR Narrative [facility] - 03/25/2022 8:54 AM SOCIAL SCIENCES DEPARTMENT CHAIR For patients not previously diagnosed with diabetes: 5.7-6.4%: Increased risk for diabetes 6.5% and greater: Diagnostic for diabetes For patients diagnosed with diabetes: <8.0%: Goal of therapy for ages 18-75 Clinicians may recommend a higher or lower goal for specific individuals. Svitlana Olmos MD LAB_1 [facility] [address] [phone] * MM Mammogram Screening Bilat W 3D [...] AM CDT) Case Report Pap ? Case: [id number] ? Authorizing Provider: ??Svitlana Olmos MD ? Collected: ? 10/16/2018 11:40 AM ? Ordering Location: ? [facility] ?Received: ?10/16/2018 01:01 PM ? First Screen: ?Gisel Monroe L, CT ? (ASCP) ? Specimen: ?Pap Test, Routine, Cervix/Endocervix ? 10/19/2018 2:22 PM CDT [facility] Pap Specimen Adequacy Satisfactory for evaluation, endocervical/bermudez sformation zone component absent. 10/19/2018 2:22 PM CDT [facility] Pap Interpretation Negative for intraepithelial lesion or malignancy (NILM). 10/19/2018 2:22 PM CDT [facility] Gross Description The specimen is received in SurePath fixative and properly labeled. 1 Pap-stained SurePath slide is prepared. 10/19/2018 2:22 PM CDT [facility] Pap Disclaimer The Pap test is a screening test designed to aid in the detection of cervical cancer and its precursor lesions. It is not a diagnostic procedure and should not be used as the sole means of detecting cervical cancer. Both false-positive and false-negative reports may occur. 10/19/2018 2:22 PM CDT [facility] Embedded Images 9 2:22 PM CDT [facility] Other Specimen Type ENTIRE ENDOCERVIX / Unknown 10/16/2018 11:40 AM CDT 10/16/2018 1:01 PM CDT Comment:LMP: No LMP recorded . Svitlana Olmos MD LAB PATHOLOGY [facility] [address] [place], [place] [address] * HIV Antibody (07/30/2003 12:02 PM CDT) HIV 1/HIV 2 Non Reac Non Reac HP CONVERSION 07/30/2003 12:0 2 PM CDT Bessy Vera LAB_1 HP CONVERSION * Hepatitis C Antibody, with Reflex (06/26/2003 4:06 PM CDT) Hepatitis C Antibody Non Reac Non Reac HP CONVERSION 06/26/2003 4:06 PM CDT Viri Mena APRN, CNP LAB_1 HP CONVERSION from Last 3 Months or Most Recently Relevant to Health Maintenance Ruthann Rosas Personal/Family Self 1965 [phone] (Home) [phone] (Work) [address] [place] [address] Ruthann Rosas Personal/Family Self 1965 [phone] (Home) [phone] (Work) [address] [place] [address] Ruthann Rosas Personal/Family Self 1965 [phone] (Home) [address] [place] [address] Ruthann Rosas Personal/Family Self 1965 [phone] (Home) [address] [place] [address] Ruthann Rosas Personal/Family Self 1965 [phone] (Home) [address] [place] [address] [employer] Employer [birth year]29[birth year][address] Attn: Chetna Slade [facility] [place] [address] [facility] Corporate Employer 03/13/1960 [address] ATTN: [place] [address] Advance Directives * Full Code (Latest Code Status on File) Date Activated Date Inactivated Comments 09/28/2023 9:22 PM 10/05/2023 5:32 PM * Full Code Date Activated Date Inactivated Comments 09/14/2023 6:00 AM 09/22/2023 5:23 PM * Full Code Date Activated Date Inactivated Comments 06/16/2023 2:35 PM 06/16/2023 9:07 PM Care Teams Career Professional Relationship Specialty Start Date End Date Svitlana Olmos MD [address] [place] [address] PCP - General 05/30/10
--- OUTSIDE RECORDS SUMMARY | 2023-10-07 02:10 | XMS_ITS | Encounter Summary ---
Author Organization [facility] Address [address] [place] [address] Care Team Providers Care Aoc Director Combat Operations Officer Name Role Phone Svitlana Olmos MD Primary Care Provider [phone] Encounter Details Date Type Department Care Team (Late st Contact Info) Description 10/06/2023 Telephone [facility] Neurosurgery/Ortho Spine [address] [facility]. [place], [place] [phone] Jg Munguia MD [address] [place] [address] Social History Tobacco Use Types Packs/Day Years Used Date Smoking Tobacco: Every Day Cigarettes 1 40.2 Started: 02/28/1979; Last attempted to quit: 05/30/2019 Smokeless Tobacco: Never Comments:Smoking History Pac ks/day: quit 06/13/2023 Alcohol Use Standard Drinks/Week Comments No 0 (1 standard drink = 0.6 oz pur e alcohol) [facility] Utilities Answer Date Recorded In the [...] place to sleep or slept in a skilled nursing (including now)? No 09/29/2023 Sex and Gender Information Value Date Recorded Sex Assigned at Not on file Gender Identity Not on file Sexual Orientation Not on file documented as of this encounter Nursing Notes * Bertha Ortiz RN - 10/06/2023 10:15 AM CDT RN spoke with Hina Nielson, MIGUEL. Patient does not need any further Keppra. Was prescribed seven daycourse after surgery, no further course needed. RN called Candelaria back with chai. Candelaria stated she would update the patient. Bertha Ortiz RN 10/06/2023, 10:18 AM * Bertha Ortiz RN - 10/06/2023 10:03 AM CDT manager mac Candelaria called. Patient was discharged from hospital yesterday. Need clarification on whether patient should be on Keppra or not. She was on it on the hospital and was discharged home jonathan 7 day course after her last hospital stay. None sent home with her this time. Last [facility] note does not mention Keppra. Will ask care team to clarify. Bertha Ortiz RN 10/06/2023, 10:04 AM Neurosurgery Progress Note [facility] Hospital Date of service: 10/05/2023 Assessment per last [facility] hospital note 10/05/23: 58 year old female who is 2 weeks post op from eyebrow craniotomy and meningioma resection with . She began having drainage from incision site along with redness and swelling along incision2 days prior to presentation. She was seen in NSGY clinic on 09/26 and started on Keflex. She was instructed to seek care should symptoms worsen. She had increased drainage and swelling from incision and family recommended that she go to the ED. She went to [facility] as she was there visiting a loved one. She transferred to [facility] for further evaluation and management Plan: - Hospital medicine primary - ID consulted, suspect impetigo, IV ceftriaxone q12 hrs through 10/26/23. COPAT ordered, f/u 2 weeks - Pain medicine consulted 10/02 - Wound Team evaluated and recommended Vashe wash and ointment for treatment. - Okay for HOB per patient preference. Patient reports improvement in positional headache followingblood patch yesterday - LP completed 10/01/23 - no evidence of infection - General cares, q 4hr neuro checks - No plans for neurosurgical intervention at this time - Multimodal pain control. On scheduled Tylenol, Gabapentin, Toradol. PRN oxycodone - Regular diet, bowel regimen - SCDs in bed, lovenox 40mg daily - PT/OT evals as needed - Hopeful discharge to home today, patient agreeable this morning - Will have patient follow up in the clinic next week for a wound check (order placed for 10/12) Patient reviewed with Dr. Munguia, who agrees with the above stated plan. Hina Nielson PA-C Neurosurgery documented in this encounter Plan of Treatment Upcoming Encounters Date Type Department Care Team (Late st Contact Info) Description 10/12/2023 9:00 AM CDT Appointment [facility] [address] [address] Svitlana Olmos MD [address] [place] [address] [place] [address] Hospital Discharge Follow-up 10/20/2023 10:30 AM CDT Appointment [facility] Neurosurgery/Ortho Spine [address] [place] [address] 12/06/2023 10:20 AM CDT Appointment [facility] Neurosurgery/Ortho Spine [address] [place] [address] Jg Munguia MD [address] [place] [address] 01/03/2024 11:20 AM WELDING TEACHER Appointment [facility] Dental [facility] [address] [place] [phone] Latha Burns, [facility] [address] [place] [address] documented as of this encounter Visit Diagnoses Not on filedocumented in this encounter Care Teams Aoc Director Combat Operations Officer Relationship Specialty Start Date End Date Svitlana Olmos MD [address] [place] [address] PCP - General 05/30/10 documented as of this encounter
--- OUTSIDE RECORDS SUMMARY | 2023-10-07 02:11 | XMS_ITS | Encounter Summary ---
Author Organization [facility] Address [address] [address] Care Team Providers Care Garbage Pick Up Man Name Role Phone Svitlana Olmos MD Primary Care Provider [phone] Encounter Details Date Type Department Care Team (Late st Contact Info) Description 09/27/2023 1:30 PM CDT Lab Visit [facility] [address] [facility]. [place], [place] [phone] Infection Social History Tobacco Use Types Packs/Day Years Used Date Smoking Tobacco: Every Day Cigarettes 1 40.2 Started: 02/28/1979; Last attempted to quit: 05/30/2019 Smokeless Tobacco: Never Comments:Smoking History Pac ks/day: quit 06/13/2023 Alcohol Use Standard Drinks/Week Comments No 0 (1 standard drink = 0.6 oz pur e alcohol) [facility] Utilities Answer Date Recorded In the past 12 months has [employer], gas, oil, or water [employer] threatened to shut off services in your [...] place to sleep or slept in a jail (including now)? No 09/29/2023 Sex and Gender Information Value Date Recorded Sex Assigned at Not on file Gender Identity Not on file Sexual Orientation Not on file documented as of this encounter Plan of Treatment Upcoming Encounters Date Type Department Care Team (Late st Contact Info) Description 10/12/2023 9:00 AM CDT Appointment [facility] [address] [address] Svitlana Olmos MD [address] [place] [address] Hospital Discharge Follow-up 10/20/2023 10:30 AM CDT Appointment [facility] Neurosurgery/Ortho Spine [address] [facility]. [place] [address] 12/06/2023 10:20 AM CDT Appointment [facility] Neurosurgery/Ortho Spine [address] [place] [address] Jg Munguia MD [address] [place] [address] 01/03/2024 11:20 AM INSURANCE ADMINISTRATOR Appointment [facility] Dental [facility] [address] [place] [address] Latha Burns, [facility] [address] [place] [address] documented as of this encounter Procedures Procedure [...] - 10.5 x10(9)/L 09/27/2023 6:01 PM T [facility] RBC 4.22 3.90 - 5.03 x10(12)/L 09/27/2023 6:01 PM [facility] Hemoglobin 11.8(L) 12.0 - 15.5 g/dL 09/27/2023 6:01 PM [facility] HCT 37.5 34.9 - 44.5 % 09/27/2023 6:01 PM [facility] MCV 88.9 80.0 - 100.0 fL 09/27/2023 6:01 PM [facility] MCH 28.0 27.6 - 33.3 pg 09/27/2023 6:01 PM [facility] MCHC 31.5 31.5 - 35.2 g/dL 09/27/2023 6:01 PM [facility] RDW 14.1 11.9 - 15.5 % 09/27/2023 6:01 PM [facility] Platelets 258 150 - 450 x10(9)/L 09/27/2023 6:01 PM [facility] Automated NRBC 0 <=0 /100 WBC 09/27/2023 6:01 PM [facility] Neutrophil Absolute 6.6 1.7 - 7.0 10(9)/L 09/27/2023 6:01 PM [facility] Lymphocyte Absolute 2.9 1.0 - 4.8 10(9)/L 09/27/2023 6:01 PM [facility] Monocyte Absolute 1.1(H) 0.2 - 0.9 10(9)/L 09/27/2023 6:01 PM [facility] Eosinophil Absolute 0.3 0.0 - 0.5 10(9)/L 09/27/2023 6:01 PM [facility] Basophil Absolute 0.1 0.0 - 0.3 10(9)/L 09/27/2023 6:01 PM [facility] Immature Granulocyte % 2.6(H) 0.0 - 0.5 % 09/27/2023 6:01 PM [facility] Blood Venipuncture / Unknown 09/27/2023 1:44 PM CDT 09/27/2023 1:44 PM CDT Jg Munguia MD LAB_[address] * (ABNORMAL) C-Reactive Protein (09/27/2023 1:44 PM CDT) [facility] C-Reactive Protein 6.0(H) 0.0 - 0.5 mg/dL 09/27/2023 7:37 PM CDT [facility] Blood Venipuncture / Unknown 09/27/2023 1:44 PM CDT 09/27/2023 1:44 PM CDT Jg Munguia MD LAB_1 [facility] 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
--- OUTSIDE RECORDS SUMMARY | 2023-10-07 02:11 | XMS_ITS | Encounter Summary ---
Author Organization [facility] Address [address] [place] [address] Care Team Providers Care Garage Door Technician Name Role Phone Svitlana Olmos MD Primary Care Provider [phone] Reason for Visit * Reason Comments Medication Request Encounter Details Date Type Department Care Team (Late st Contact Info) Description 09/26/2023 Refill [facility] [address] [place] [address] [place] [phone] Svitlana Olmos MD [address] [place], [place] [address] [phone] Medication Request Social History Tobacco Use Types Packs/Day Years Used Date Smoking Tobacco: Every Day Cigarettes 1 40.2 Started: 02/28/1979; Last attempted to quit: 05/30/2019 Smokeless Tobacco: Never Comments:Smoking History Pac ks/day: quit 06/13/2023 Alcohol Use Standard Drinks/Week Comments No 0 (1 standard drink = 0.6 oz pur e alcohol) [facility] Utilities Answer Date Recorded In the [...] place to sleep or slept in a usp (including now)? No 09/14/2023 Sex and Gender Information Value Date Recorded Sex Assigned at Not on file Gender Identity Not on file Sexual Orientation Not on file documented as of this encounter Nursing Notes * Shantia Escamilla LPN - 09/26/2023 3:25 PM CDT Spoke to pt and she reports that she called [facility] and they told her to contact her PMD. * Svitlana Olmos MD - 09/26/2023 2:18 PM CDT Please let the patient know I did send in her refills. 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 Patient had brain surgery last week she states and was discharged on 09-21-23 and does not have enough of the above medications that Neurosurgeon prescribed from hospital at [facility] and she was toldto call PCP and [...] medications that Neurosurgeon prescribed from hospital at [facility] and she was told to call PCP [...] 9:00 AM CDT Appointment [facility] [address] [place] [address] Svitlana Olmos MD [address] [place] [address] [address] [address] Hospital Discharge Follow-up 10/20/2023 10:30 AM CDT Appointment [facility]o Spine [address] [facility] [place] [address] 12/06/2023 10:20 AM CDT Appointment [facility] Neurosurgery/Ortho Spine [address] [facility]. [place] [address] Jg Munguia MD [address] [facility] [place] [address] 01/03/2024 11:20 AM CAR CHECKER [facility]ointment [facility] [place] [address] [place], [place] [phone] Latha Burns, [facility] [address] [place] [address] documented as of this encounter Visit Diagnoses Not on filedocumented in this encounter Care Teams Garage Door Technician Relationship Specialty Start Date End Date Svitlana Olmos MD [address] [place] [address] PCP - General 05/30/10 documented as of this encounter
--- OUTSIDE RECORDS SUMMARY | 2023-10-07 02:11 | XMS_ITS | Encounter Summary ---
Author Organization [facility] Address [address] [place] [address] Care Team Providers Care Operating Systems Specialist Name Role Phone Svitlana Olmos MD Primary Care Provider [phone] Reason for Visit * Reason Comments Other See message 09/26/23 Encounter Details Date Type Department Care Team (Late st Contact Info) Description 09/27/2023 Telephone [facility] [address] [facility] [place] [phone] Svitlana Olmos MD [address] [place], [place] [address], [place] [phone] Other (See message 09/26/23) Social History Tobacco Use Types Packs/Day Years Used Date Smoking Tobacco: Every Day Cigarettes 1 40.2 Started: 02/28/1979; Last attempted to quit: 05/30/2019 Smokeless Tobacco: Never Comments:Smoking History Pac ks/day: quit 06/13/2023 Alcohol Use Standard Drinks/Week Comments No 0 (1 standard drink = 0.6 oz pur e alcohol) [facility] Utilities Answer Date Recorded In the past 12 months has th e electric, gas, oil, or water [employer] threatened to shut off services in your [...] slept in a custodial (including now)? No 09/29/2023 Sex and Gender [...] in neurosurgery from yesterday and faxed [facility]. * Kathryn Tejeda - 09/27/2023 11:51 AM CDT Other Questions/Concerns/FYI Is this a symptom? No What is your question or concern? Pt calling advised [facility] Medical needs reason/visit notes why bed is juma requested. fax#[phone] Have you recently been seen for this? [...] 9:00 AM CDT Appointment [facility] [place] [address] [address] Svitlana Olmos MD [facility] [place] [address] [address] Hospital Discharge Follow-up 10/20/2023 10:30 AM CDT Appointment [facility] Neurosurgery/Ortho Spine [address] [facility] [place] [address] 12/06/2023 10:20 AM CDT Appointment [facility] Neurosurgery/Ortho Spine [address] [place] [address] Jg Munguia MD [address] [facility] [place] [address] 01/03/2024 11:20 AM BUTADIENE CONVERTER UTILITY OPERATOR Appointment [facility] [address] [address] Latha Burns, [facility] [address] [place] [address] documented as of this encounter Visit Diagnoses Not on filedocumented in this encounter Care Teams Operating Systems Specialist Relationship Specialty Start Date End Date Svitlana Olmos MD [address], [place] [phone] PCP - General 05/30/10 documented as of this encounter
--- OUTSIDE RECORDS SUMMARY | 2023-10-07 02:11 | XMS_ITS | Encounter Summary ---
Author Organization [facility] Address [address] [place] [address] Care Team Providers Care Tubular Products Fabricator Name Role Phone Svitlana Olmos MD Primary Care Provider [phone] Reason for Visit * Auth/Cert (Routine) Specialty Diagnoses / Procedures Referred By Contgary t Referred To Contact Diagnoses Infection following a procedure, other surgical site, initial encounter Postoperative infection, unspecified type, initial encounter facial & eye swelling, throbbing MURILLO Postoperative infection, unspecified type, initial encounter Referral ID Status Reason Start Date Expiration Date Visits Re quested Visits Authorized [id number] 1 1 Encounter Details Date Type Department Care Team (Late st Contact Info) Description 09/28/2023 7:00 PM CDT Ancillary Procedure [facility] [address] [address] Social History Tobacco Use Types Packs/Day Years Used Date Smoking Tobacco: Every Day Cigarettes 1 40.2 Started: 02/28/1979; Last attempted to quit: 05/30/2019 Smokeless Tobacco: Never Comments:Smoking History Pac ks/day: quit 06/13/2023 Alcohol Use Standard Drinks/Week Comments No 0 (1 standard drink = 0.6 oz pur e alcohol) [facility] Utilities Answer Date Recorded In the [...] place to sleep or slept in a senior living (including now)? No 09/29/2023 Sex and Gender Information Value Date Recorded Sex Assigned at Not on file Gender Identity Not on file Sexual Orientation Not on file documented as of this encounter Plan of Treatment Upcoming Encounters Date Type Department Care Team (Late st Contact Info) Description 10/12/2023 9:00 AM CDT Appointment [facility] [address] [address] Svitlana Olmos MD [address] [place] [address] Hospital Discharge Follow-up 10/20/2023 10:30 AM CDT Appointment [facility] Neurosurgery/Ortho Spine [address] [facility] [address] 12/06/2023 10:20 AM CDT Appointment [facility] Neurosurgery/Ortho Spine [address] [facility] [address] Jg Munguia MD [address] [place] [address] 01/03/2024 11:20 AM CEMETERY MANAGER Appointment [facility] Dental [facility] [address] [place], [place] [phone] [facility] [address] [place], [place] [phone] documented as of this encounter Procedures Procedure Name Priority Date/Time Associated Diagnosis Comments INPATIENT TELEMETRY MONITORING Routine 09/30/2023 7:00 AM CDT INPATIENT TELEMETRY MONITORING Routine 09/30/2023 1:04 AM CDT INPATIENT TELEMETRY MONITORING Routine 09/30/2023 1:04 AM CDT INPATIENT TELEMETRY MONITORING Routine 09/30/2023 1:04 AM CDT INPATIENT TELEMETRY MONITORING Routine 09/28/2023 11:02 PM CDT MR BRAIN W/WO IV CONT STAT 09/28/2023 8:03 PM CDT documented in this encounter Results * INPATIENT TELEMETRY MONITORING (09/30/2023 7:00 AM CDT) TELE P-R INTERVAL 0.23 [facility] TELE QRS DURATION 0.09 [facility] TELE R-R INTERVAL 0.99 [facility] TELE INTERPRETATION Sinus Rhythm with 1st AVB/RMT,SS /RN,LB [facility] 09/30/2023 7:00 AM CDT Narrative [facility] - 09/30/2023 11:07 AM CDT Sinus Rhythm ??with 1st AVB/RMT,SS/RN,RAMYA Interface Provider EKG Performing Organization Address [facility] de Phone Number [facility] [address] [place] [address] * INPATIENT TELEMETRY MONITORING (09/30/2023 1:04 AM CDT) TELE P-R INTERVAL 0.20 [facility] TELE QRS DURATION 0.12 [facility] TELE R-R INTERVAL 0.86 [facility] TELE INTERPRETATION Sinus Rhythm MARELY AREVALO,RC [facility] 09/30/2023 1:04 AM CDT Narrative [facility] - 09/30/2023 4:52 AM CDT Sinus Rhythm ??RNMARELY / MATIAS,RC Interface Provider EKG Performing Organization Address [facility] de Phone Number [facility] [address] [place] [address] * INPATIENT TELEMETRY MONITORING (09/30/2023 1:04 AM CDT) TELE P-R INTERVAL 0.20 [facility]USE [facility] TELE QRS DURATION 0.12 [facility] TELE R-R INTERVAL 0.86 [facility] TELE INTERPRETATION Sinus Rhythm MARELY AREVALO,RC [facility] 09/30/2023 1:04 AM CDT Narrative [facility] - 09/30/2023 1:52 AM CDT Sinus Rhythm ??RNMARELY,RC Interface Provider EKG Performing Organization Address [facility] Co de Phone Number [facility] [address] [place], [place] [id number] * INPATIENT TELEMETRY MONITORING (09/30/2023 1:04 AM CDT) TELE P-R INTERVAL 0.20 [facility] TELE QRS DURATION 0.12 [facility] TELE R-R INTERVAL 0.86 [facility] TELE INTERPRETATION Sinus Rhythm RN,MARELY / MATIAS,JOSR [facility] 09/30/2023 1:04 AM CDT Narrative [facility] - 09/30/2023 1:48 AM CDT Sinus Rhythm ??RN,MARELY / MATIAS,RC Interface Provider EKG Performing Organization Address [facility] de Phone Number ALICE SALAZARP [address] [place] [phone] * INPATIENT TELEMETRY MONITORING (09/28/2023 11:02 PM CDT) TELE P-R INTERVAL 0.22 MUSE [facility] TELE QRS DURATION 0.10 [facility]USE [facility] TELE R-R INTERVAL 1.01 MUSE [facility] TELE INTERPRETATION 1 AV Block SR 1avb HR 60s CS(RMT)/Mery Villalpando(RN) [facility] 09/28/2023 11:0 2 PM CDT Narrative [facility] - 09/29/2023 5:09 AM CDT 1 AV Block ??SR 1avb HR 60s CS(RMT)/MARELY(RN) Interface Provider EKG Performing Organization Address [facility] de Phone Number ALICE SALAZARP [address] [place] [address] documented in this encounter Visit Diagnoses Not on filedocumented in this encounter Administered Medications Inactive Administered Medications - up to 3 most recent administrations Medication Order MAR Action Action Date Dose Rate Site gadobutrol (GADAVIST) 1 MMOL/ML injection 7.5 mL 7.5 mL, Intravenous, ONCE (NON-SCHEDULED), Starting on Tue09/28/23 at 2002, Until Tue09/28/23 at 2003, For 1 dose Given 09/28/2023 8:04 PM CDT 7.5 mL Left Arm documented in this encounter Care Teams Tubular Products Fabricator Relationship Specialty Start Date End Date Svitlana Olmos MD [address] [place] [address] PCP - General 05/30/10 documented as of this encounter
--- OUTSIDE RECORDS SUMMARY | 2023-10-07 02:11 | XMS_ITS | Encounter Summary ---
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 Name Role Phone Svitlana Olmos MD Primary Care Provider [phone] Reason for Referral * Procedure/Equipment (Routine) - New Request Specialty Diagnoses / Procedures Referred By Contac t Referred To Contact Diagnoses Postoperative infection, unspecified type, initial encounter Hina Nielson PA-C [address] [place] [id number] Referral ID Status Reason Start Date Expiration Date V isits Requested Visits Authorized [id number] New Request 10/05/2023 01/03/2025 1 1 Scheduling Instructions [facility] You may call [phone], option [phone] to schedule your appointment. Question Answer Appointment Urgency? Non-Urgent Patient should be seen by s/p eyebrow crani now with impetigo of wound, wound check 10/[address] Munguia * Procedure/Equipment (Routine) - Incomplete Specialty Diagnoses / Procedures Referred By Contac t Referred To Contact Procedures IR Injection Epidural Blood Patch Chiquita Dawson, PAROLE OFFICER, CARPET INSPECTOR [address] [place] [address] Referral ID Status Reason Start Date Expiration Date V isits Requested Visits Authorized [id number] Incomplete 10/04/2023 01/02/2025 1 1 * Procedure/Equipment (Routine) - Incomplete Specialty Diagnoses / Procedures Referred By Contac t Referred To Contact Procedures IR Imaging consult Schedule placeholder (do not remove) Lexis Simpson PA-C [address] [place] [address] Referral ID Status Reason Start Date Expiration Date V isits Requested Visits Authorized [id number] Incomplete 10/04/2023 01/02/2025 1 1 * Procedure/Equipment (Routine) - Incomplete Specialty Diagnoses / Procedures Referred By Contac t Referred To Contact Procedures IR Injection Epidural Blood Patch IR Imaging consult Schedule placeholder (do not remove) Eliud Blount MD [address] [place] [address] Referral ID Status Reason Start Date Expiration Date V isits Requested Visits Authorized [id number] Incomplete 10/03/2023 01/01/2025 1 1 * Consult only No Tests 1 visit (Routine) - Incomplete Specialty Diagnoses / Procedures Referred By Contac t Referred To Contact Diagnoses Postoperative infection, unspecified type, initial encounter Wound infection Lexis Simpson PA-C [address] [place] [address] Referral ID Status Reason Start Date Expiration Date V isits Requested Visits Authorized [id number] Incomplete 10/03/2023 03/31/[phone] Scheduling Instructions This order is your clinician's recommendation for a service and is not an insurance referral which authorizes payment. The recommended service and/or location may not be covered by your insurance plan. Please call the number on your insurance card to find out your specific benefits and coverage for the recommended services and/or location. If you need help scheduling the recommended services, please ask your clinician's staff to assist you. Question Answer Appointment Urgency? 1-2 DAYS Order Type? Start of Care Primary Services Needed Home Care Nurse Comments Face to Face Attestation Encounter for Home Health Care Patient name: Ruthann Rosas MR#: [id number] I certify that this patient is under my care. A physician, nurse practitioner, certified nurse-binitrotoluene operator, clinical nurse specialist or physician assistant professor of surgery had a [id number] encounter that meets the requirements with this patient on: 10/03/2023 The encounter with the patient was in whole, or in part, for the following medical condition(s), which is the primary reason for home health care: See attached order diagnosis. My clinical findings support the need for the above services because: - home infusion therapy for home RN visits for Lab draws and picc line dressing changes, Further, I certify that my clinical findings support that this patient is homebound (i.e. absences from home require considerable and taxing effort and are for medical reasons or tenriism services OR infrequently or of short duration when for other reasons) because: -Leaving home is a considerable effort requiring an assistive device because unable to drive, limited access to transportation Name of community Physician who will continue orders and certifications: Svitlana Omlos MD * Consult/Transfer Care (Routine) - New Request Specialty Diagnoses / Procedures Referred By Martir seay Referred To Contact Diagnoses Wound infection Surgical site infection Rosalina Hannah MD [address] [place] [address] Referral ID Status Reason Start Date Expiration Date V isits Requested Visits Authorized [id number] New Request 10/03/2023 01/01/2025 1 1 Scheduling Instructions Your clinician has recommended an appointment with [facility] Infectious Disease. You may call [phone] to schedule your appointment. We suggest you call your health insurance company about your coverage and benefits for this appointment. Question Answer Appointment Urgency? Non-Urgent Reason for visit? Antimicrobial management Outpatient Appt Need? Hospital Follow up Comments Follow-up is needed within 2 weeks. * Procedure/Equipment (Routine) - Incomplete Specialty Diagnoses / Procedures Referred By Contac t Referred To Contact Procedures XR Portable Chest 1 View XR Portable Chest 1 View Lubna Sommer PA-C [address] [place] [address] Referral ID Status Reason Start Date Expiration Date V isits Requested Visits Authorized [id number] Incomplete 10/01/2023 12/30/2024 1 1 * Procedure/Equipment (Routine) - Incomplete Specialty Diagnoses / Procedures Referred By Contac t Referred To Contact Procedures FL Lumbar Puncture (For CSF) Kev Rojas III, MD [address] [place] [phone] Referral ID Status Reason Start Date Expiration Date V isits Requested Visits Authorized [id number] Incomplete 10/01/2023 12/30/2024 1 1 * Procedure/Equipment (Routine) - Incomplete Specialty Diagnoses / Procedures Referred By Contac t Referred To Contact Procedures CT Head WO IV Cont Lubna Sommer PA-C [address] [place] [address] Referral ID Status Reason Start Date Expiration Date V isits Requested Visits Authorized [id number] Incomplete 10/01/2023 12/30/2024 1 1 * Procedure/Equipment (Routine) - Incomplete Specialty Diagnoses / Procedures Referred By Contac t Referred To Contact Procedures IR Lumbar Puncture Diagnostic Lubna Sommer PA-C [address] [place] [phone] Referral ID Status Reason Start Date Expiration Date V isits Requested Visits Authorized [id number] Incomplete 10/01/2023 12/30/2024 1 1 * Procedure/Equipment (Routine) - Incomplete Specialty Diagnoses / Procedures Referred By Martir seay Referred To Contact Procedures MR Brain W/WO IV Cont Sussy Villeda APRN, CARPET INSPECTOR [address] [place] [address] Referral ID Status Reason Start Date Expiration Date V isits Requested Visits Authorized [id number] Incomplete 09/28/2023 12/27/2024 1 1 Reason for Visit * Reason Comments Infection, Wound * Auth/Cert (Routine) Specialty Diagnoses / Procedures Referred By Martir seay Referred To Contact Diagnoses Infection following a procedure, other surgical site, initial encounter Postoperative infection, unspecified type, initial encounter facial & eye swelling, throbbing MURILLO Postoperative infection, unspecified type, initial encounter Referral ID Status Reason Start Date Expiration Date Visits Re quested Visits Authorized [id number] 1 1 Encounter Details Date Type Department Care Team (Late st Contact Info) Description 09/28/2023 4:16 PM CDT - 10/05/2023 3:27 PM CDT Hospital Encounter [facility] [address] [place] [id number] Emily Whitmore MD [address] [place] [address] Guillermina Sorto MD [address] [place] [address] Svitlana Bazan APRN, CARPET INSPECTOR [address] [place] [address] Jg Munguia MD [address] [place] [id number] Lubna Sommer PA-C [address], [place] [address] Guillermina Delvalle DO [address] [place] [address] Lexis Simpson PA-C [address] [place] [address] Osmany Villarreal MD [address] [place] [address] Postoperative infection, unspecified type, initial encounter (Primary Dx); Wound infection; Surgical site infection; Acute pain Discharge Disposition: Home Social History Tobacco Use Types Packs/Day Years Used Date Smoking Tobacco: Every Day Cigarettes 1 40.2 Started: 02/28/1979; Last attempted to quit: 05/30/2019 Smokeless Tobacco: Never Comments:Smoking History Pac ks/day: quit 06/13/2023 Alcohol Use Standard Drinks/Week Comments No 0 (1 standard drink = 0.6 oz pur e alcohol) [facility] [employer] Answer Date Recorded In the past 12 months has [employer], gas, oil, or water [employer] threatened to shut off services in your [...] Mass Index 28.54 09/28/2023 9:28 PM CDT documented in this encounter Discharge Summaries * Lexis Simpson PA-C - 10/02/2023 7:59 AM CDT [facility] Medicine Discharge Summary Patient ID: Ruthann Rosas [id number] y.o. 1965 Admit date: 09/28/2023 Discharge date: 10/05/2023 Final Discharge Diagnoses: Primary problem: Impetigo Surgical wound infection Brief HPI Summary: 58 year old female who is 2 weeks post op from eyebrow craniotomy and meningioma resection with . She began having drainage from incision site along with redness and swelling along incision2 days ago. She was seen in NSGY clinic on 09/26 and started on Keflex. She was instructed to seek care should symptoms worsen. She had increased drainage and swelling from incision today and family recommended that she go to the ED. Please see the admission history and physical for full details. Hospital Course, by problem: surgical incision infx Facial Impetigo with bilateral periorbital erythema and edema Presenting sx: wound drainage, erythema, edema, headache. Mild leukocytosis and elevated CRP. No fevers. MRI brain completed on admission with edema/soft tissue thickening at incision site and fluid in frontal sinus - challenging to say if postop edema/fluid vs infection -NSG consulted -do not suspect deeper infection after reviewing imaging. No plans for surgical intervention -no ibuprofen until >4 wks postop -ID following -MRSA swab negative -transferred from [facility] on zosyn/vanco transitioned to cefazolin 09/29/2023, changed toceftriaxone 09/30/2023 -plan for 4wk course of ceftriaxone, placed PICC 09/30 -crp stable -inflammatory markers are downtrending -pain management: scheduled tylenol, robaxin, hydroxyzine, and oxycodone. D/w patient plan to wean down once infx improving. Headache Present on admission, attributed to recent sx and new surgical wound infx.MRI brain completed on admission. Pt has had headache since discharge from craniotomy but reportedly had been improving before patient developed above infection. Pain located over her face and the top of her head. No nuchal ri gidity. No vision changes. Denies regular caffeine intake. No history of migraines. D/w pt possiblerebound effect secondary to pain meds. Pain medications increased 09/29. 10/01/2023 reported photophobia and worsening sx which prompted repeat head CT and LP (no acute pathology) -pain management: scheduled tylenol, robaxin, hydroxyzine, and oxycodone, same regimen on dc from craniotomy that had been working well for pt - NSG added additional dose of 10mg oxycodone and fioricet - had PDPH, was seen by pain MD, s/p blood patch 8/6 with improvement. D/c on above regimen. Pain saw her and added gabapentin 200TID, uptitrated to 400 TID on d/c. F/u with NS and PCP for refills ifneeded. Pt given [facility] phone number to call if blood patch stops working. 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 Instill 2 mg into the occluded catheter, after 30 minutes dwell time assess, if not functional reassess again in 90 minutes. If still occluded may repeat 2 mg dose and reassess after 30 minutes. Dispense quantity sufficientfor treatment course. Use per institutional policy. Notes to patient: Why this medicine is used: Dissolves blood clots. Common side effects: ?? Nosebleeds, bleeding from your gums, or any unexplained bruising or bleeding cefTRIAXone 2 g injection Commonly known as: ROCEPHIN Administer 2,000 mg (2 g) intravenously every 12 hours for 23 days. Reconstitute and/or dilute per home infusion pharmacy/facility compounding standards or use premade bag if available. This order should end on 10/26/23 , date inclusive. Notes to patient: Why this medicine is used: Treats infections. Common side effects: ?? Vaginal itching or discharge ?? Pain, redness, swelling where the needle is placed emollient ointment Commonly known as: AQUAPHOR Apply topically three times a day. gabapentin 400 MG capsule Commonly known as: NEURONTIN Take 1 Capsule (400 mg) by mouth three times a day. Notes to patient: This medication is used to prevent and control seizures. It is also used to relieve nerve pain. Possible Side Effects: drowsiness, dizziness, blurred/double vision, tiredness, tremor heparin PF (Pork) 100 UNIT/ML injection Administer 5 mL (500 Units) intravenously as needed (line patency). Dispense quantity sufficient for treatment course. Use per institutional policy. ondansetron 4 MG disintegrating tablet Commonly known as: ZOFRAN-ODT Dissolve 1 Tablet (4 mg) by mouth every 6 hours as needed. Indications: Nausea and Vomiting Notes to patient: This medication is used to treat nausea and vomiting. Possible Side Effects: constipation, diarrhea, dizziness, drowsiness, headache, tiredness, weakness. sodium chloride 0.9% injection Administer 10 mL intravenously as needed (For Line patency. Before and After Medications or Lab draw.). Dispense quantity sufficient for treatment course. Use per institutional policy. CHANGE how you take these medications hydrOXYzine pamoate 50 MG capsule Commonly known as: VISTARIL Take 1 Capsule (50 mg) by mouth 4 times daily as needed. Indications: pain What changed: when to take this reasons to take this methocarbamol 500 MG tablet Commonly known as: ROBAXIN Take 1 Tablet (500 mg) by mouth 4 times daily as needed. What changed: when to take this reasons to take this oxyCODONE HCl 10 MG immediate release tablet Commonly known as: ROXICODONE Take 1 Tablet (10 mg) by mouth every 4 hours as needed for Pain. Indications: Acute Pain What changed: medication strength how much to take when to take this CONTINUE taking these medications acetaminophen 325 MG tablet Commonly known as: TYLENOL Take 1-2 Tablets (325-650 mg) by mouth every 6 hours as needed for Pain. acyclovir 400 MG tablet Commonly known as: ZOVIRAX Take 1 Tablet (400 mg) by mouth three times a day as needed. ascorbic acid 500 MG tablet Commonly known as: VITAMINC Take 2 Tablets (1,000 mg) by mouth daily. CALCIUM 500 OR cholecalciferol 50 MCG (2000 UT) tablet Commonly known as: VITAMIND3 famotidine 20 MG tablet Commonly known as: PEPCID Take 1 Tablet (20 mg) by mouth two times a day before meals. Fish Oil 1000 MG capsule Take 1 Capsule (1,000 mg) by mouth daily. Do not start before September 28, 2023. levETIRAcetam 500 MG tablet Commonly known as: KEPPRA Take 1 Tablet (500 mg) by mouth two times a day for 7 days. MULTIVITAMIN OR Take 1 tablet by mouth daily (every 24 hours). mupirocin 2 % ointment Commonly known as: BACTROBAN Apply topically three times a day. Odor Free Garlic 100 MG Generic drug: Garlic Take 1 Tablet (100 mg) by mouth daily. Do not start before September 28, 2023. Stimulant Laxative 8.6-50 MG per tablet Generic drug: sennosides-docusate sodium Take 2 Tablets by mouth two times daily as needed for Constipation. Indications: Constipation traZODone 100 MG tablet Commonly known as: DESYREL Take 2 Tablets (200 mg) by mouth daily at bedtime. varenicline 1 MG tablet Commonly known as: Chantix Take 1 Tablet (1 mg) by mouth two times a day. Take after eating with a full glass of water.NOTE:Dispense as maintenance for refills only. STOP taking these medications cephalexin 500 MG capsule Commonly known as: KEFLEX ibuprofen 600 MG tablet Commonly known as: MOTRIN Where to Get Your Medications These medications were sent to [facility] [address] [place] [address] Hours: Open 24x7 gabapentin 400 MG capsule hydrOXYzine pamoate 50 MG capsule methocarbamol 500 MG tablet ondansetron 4 MG disintegrating tablet oxyCODONE HCl 10 MG immediate release tablet Information about where to get these medications is not yet available Ask your nurse or doctor about these medications emollient ointment - Consults: ID, pain and neurosurgery - Procedures and Surgeries: LP puncture 10/01/2023 Discharge Exam: BP 104/64 (BP Cuff Size: Regular) Pulse (!) 58 Temp 98.1 ??F (36.7 ??C) (Oral) Resp 16 Ht 5' 5 (1.651 m) Wt 77.8 kg (171 lb 8 oz) SpO2 95% BMI 28.54 kg/m?? General appearance: alert, cooperative, no distress, appears stated age HEENT: Sclera anicteric, no conjunctival injection. EOMI. JOSELUIS. MMM, OP clear w/o exudates. Lungs: clear to auscultation bilaterally Heart: regular rate and rhythm, S1, S2 normal, no murmur, click, rub or gallop Abdomen: soft, non-tender; bowel sounds normal; no masses, no organomegaly Extremities: extremities normal, atraumatic, no cyanosis or edema Pulses: 2+ and symmetric Skin: Skin color, texture, turgor normal. No rashes or lesions Neurologic: Grossly normal Disposition: home Code Status: Full Code Follow up: Referrals (From admission, onward) None Future Appointments Provider Department Center 10/03/2023 11:00 AM (Arrive by 10:45 AM) Svitlana Olmos MD [facility] 10/20/2023 10:30 AM NEUROSURGERY [facility]EL [facility] Neurosurgery/Ortho Spine [place] [address] 12/06/2023 10:20 AM Jg Munguia MD [facility] Neurosurgery/[facility]o [facility] [address] 01/03/2024 11:20 AM Latha Burns [facility]; EXAM [facility] Dental [facility] Significant Diagnostic Studies (imaging, labs, micro, etc), see EMR for full details: MRI brain: IMPRESSION: 1. 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 2. Increased enhancement along the resection margins is favored to reflect subacute evolution of ischemic changes initially demonstrated on 09/15/2023. Decreased vasogenic edema and absence of progressive diffusion abnormalities lessen the likelihood of infectious change at the resection site but donot exclude it. 3. Persistent fluid in the frontal sinus exenteration bed. There is increased enhancement along themargins of this fluid. Infection not excluded by MRI. 4. Increased soft tissue thickening and edema at the presumed incision site, which could reflect infection in the appropriate clinical context. 5. No findings specific for residual tumor. Billing based on time: Total time for the visit was >30 minutes including, but not limited to, jtw-lcpr-gf-face time spent reviewing records, counseling, and coordination of care. Lexis Simpson PA-C documented in this encounter Discharge Instructions * Discharge Instr - Other Orders* Ashwini Pantoja RN - 10/05/2023 1:00 PM CDT Community Resources N/A Fall Prevention Recommendations Follow therapy recommendations around equipment use and activity progression Remove trip hazards to keep pathways clear in the home Remove throw rugs Keep frequently used items in easy to reach places Use non-slip mats in the bathtub and on shower floors Improve lighting in your home in all areas Wear shoes or non-slip footwear inside the house * Attachments The following attachments cannot be sent through Care Everywhere. * PICC (Peripherally Inserted Central Catheter) (Kiswahili) documented in this encounter Medications at Time of Discharge Medication Sig Dispensed Refills Start Date End Date acetaminophen (TYLENOL) 325 MG tablet Take 1-2 Tablets (325-650 mg) by mouth every 6 hours as needed for Pain. 45 Tablet 1 06/16/2023 acyclovir (ZOVIRAX) 400 MG tabletIndications:Recu rrent cold sores Take 1 Tablet (400 mg) by mouth three times a day as needed. 15 Tablet 3 03/24/2022 alteplase (CATHFLO ACTIVASE) 2 MG injection Administer 2 mg intravenously as needed (Line Occlusion) for up to 2 doses. Instill 2 mg into the occluded catheter, after 30 minutes dwell time assess, if not functional reassess again in 90 minutes. If still occluded may repeat 2 mg dose and reassess after 30 minutes. Dispense quantity sufficient for treatment course. Use per institutional policy. 10/03/2023 ascorbic acid (AKA VITAMIN C) 500 MG tablet Take 2 Tablets (1,000 mg) by mouth daily. 06/01/2005 Calcium Carbonate (CALCIUM 500 OR) Take 1 Tablet by mouth daily. cefTRIAXone (ROCEPHIN) 2 g injection Administer 2,000 mg (2 g) intravenously every 12 hours for 23 days. Reconstitute and/or dilute per home infusion pharmacy/facility compounding standards or use premade bag if available. This order should end on 10/26/23 , date inclusive. 10/03/2023 10/26/2023 cholecalciferol (VITAMIND3) 50 MCG (2000 UT) tablet Take 2 Tablets (4,000 Units) by mouth daily. emollient (AQUAPHOR) ointment Apply topically three times a day. 10/05/2023 famotidine (PEPCID) 20 MG tablet Take 1 Tablet (20 mg) by mouth two times a day before meals. 6 Tablet 09/21/2023 gabapentin (NEURONTIN) 400 MG capsule Take 1 Capsule (400 mg) by mouth three times a day. 90 Capsule 10/05/2023 10/04/2024 Garlic (ODOR FREE GARLIC) 100 MG Take 1 Tablet (100 mg) by mouth daily. Do not start before September 28, 2023. 09/28/2023 heparin PF, Pork, 100 UNIT/ML injection Administer 5 mL (500 Units) intravenously as needed (line patency). Dispense quantity sufficient for treatment course. Use per institutional policy. 10/03/2023 hydrOXYzine pamoate (VISTARIL) 50 MG capsuleIndications:marleen n Take 1 Capsule (50 mg) by mouth 4 times daily as needed. Indications: pain 40 Capsule 10/05/2023 methocarbamol (ROBAXIN) 500 MG tablet Take 1 Tablet (500 mg) by mouth 4 times daily as needed. 40 Tablet 10/05/2023 Multiple Vitamins-Minerals (MULTIVITAMIN OR) Take 1 tablet by mouth daily (every 24 hours). 100 13 06/01/2005 mupirocin (BACTROBAN) 2 % ointmentIndications:In fection Apply topically three times a day. 30 g 09/27/2023 [place]-3 Fatty Acids (FISH OIL) 1000 MG capsule Take 1 Capsule (1,000 mg) by mouth daily. Do not start before September 28, 2023. 09/28/2023 ondansetron (ZOFRAN-ODT) 4 MG disintegrating tabletIndications:Naus ea and Vomiting Dissolve 1 Tablet (4 mg) by mouth every 6 hours as needed. Indications: Nausea and Vomiting 10 Tablet 10/05/2023 oxyCODONE HCl (ROXICODONE) 10 MG immediate release tabletIndications:Acut e Pain Take 1 Tablet (10 mg) by mouth every 4 hours as needed for Pain. Indications: Acute Pain 20 Tablet 10/05/2023 sennosides-docusate sodium (SENOKOT S) 8.6-50 MG per tabletIndications:Cons tipation Take 2 Tablets by mouth two times daily as needed for Constipation. Indications: Constipation 60 Tablet 09/20/2023 sodium chloride 0.9% injection Administer 10 mL intravenously as needed (For Line patency. Before and After Medications or Lab draw.). Dispense quantity sufficient for treatment course. Use per institutional policy. 10/03/2023 traZODone (DESYREL) 100 MG tabletIndications:Fusion Operator tracy insomnia Take 2 Tablets (200 mg) by mouth daily at bedtime. 180 Tablet 3 08/31/2023 varenicline (CHANTIX) 1 MG tabletIndications:Toba account retention representative abuse (HRC) Take 1 Tablet (1 mg) by mouth two times a day. Take after eating with a full glass of water.NOTE:Dispense as maintenance for refills only. 180 Tablet 3 05/25/2023 levETIRAcetam (KEPPRA) 500 MG tablet Take 1 Tablet (500 mg) by mouth two times a day for 7 days. 14 Tablet 09/20/2023 10/06/2023 documented as of this encounter Progress Notes * Eliud Blount MD - 10/05/2023 10:20 AM CDT Images from the original note were not included. [facility] Consultation Follow up DATE OF VISIT: 10/05/2023 ASSESSMENT: Admission for surgical incision infection Positional headache Meningioma resection eyebrown cranitotomy 09/1309/14/23 Generalized anxiety disorder History of alcohol use disorder Estimated Creatinine Clearance: 93.2 mL/min (by C-G formula based on SCr of 0.67 mg/dL). TREATMENT RECOMMENDATIONS/PLAN: OK to continue gabapentin 200mg TID. Patient was agreeable to an opioid taper with a short supply of oxycodone. If the PDPH returns in the next week, she could consider a repeat blood patch with IR. I think thisis unlikely, but it is an option she could pursue as an outpatient If her headache persists, she can also follow-up in the pain clinic. ASSESSMENT AND RECOMMENDATIONS DISCUSSED WITH: Lexis Simpson PA-C Thank you for consulting the Inpatient Pain Management Service. Please contact me with any questions or concerns. Eliud Blount M.D. [facility] [phone] INTERVAL HISTORY: Patient feels significant better following the blood patch. She was sitting up in a chair. Still has a baseline headache, but this is similar to the headache she had on admission. INPATIENT MEDICATIONS PERTINENT TO THIS CONSULT: Tylenol 325mg q 6 hours Dulcolax Pepcid Gabapentin 200mg TID Atarax 50mg q 6 hours PRN Toradol 15mg q 6 hours PRN Keppra 500mg BID Robaxin 500mg QID Oxycodone 10mg q 4 hours PRN (60mg given yesterday) Trazodone 200mg QHS Chantix CURRENT MEDICATIONS: Current Facility-Administered Medications Ordered in Epic Medication Dose Route Frequency Provider Last Rate Last Admin acetaminophen (TYLENOL) tablet 325 mg 325 mg Oral Q6H Candelaria Johnson APRN CARPET INSPECTOR 325 mg at 10/05/23 0616 bisacodyl (DULCOLAX) rectal suppository 10 mg 10 mg Rectal DAILY PRN April Holt cefTRIAXone (ROCEPHIN) 2 g in sodium chloride 0.9 % 100 mL IVPB 2 g Intravenous Q12H(NS) Rosalina Hannah MD Stopped at 10/05/23 0004 emollient (AQUAPHOR) ointment Topical TID Lexis Simpson PA-C Given at 10/05/23 0900 [Held by provider in Manage Orders] enoxaparin (LOVENOX) prefilled syringe 40 mg 40 mg [id number] OsLexis gamez PA-C 40 mg at 10/01/23 1233 famotidine (PEPCID) tablet 20 mg 20 mg Oral BID before meals Sussy Villeda APRN, CNP 20 mg at 10/05/23 0616 gabapentin (NEURONTIN) capsule 200 mg 200 mg Oral TID Eliud Blount MD 200 mg at 10/05/23 0858 hydrOXYzine pamoate (VISTARIL) capsule 50 mg 50 mg Oral Q6H PRN Sussy Villeda APRN CARPET INSPECTOR 50 mg at 10/05/23 0617 ketorolac (TORADOL) injection 15 mg 15 mg Intravenous Q6H PRN Hina Nielson PA-C 15 mg at 10/05/23 0220 levETIRAcetam (KEPPRA) tablet 500 mg 500 mg Oral BID Lubna Sommer PA-C 500 mg at 10/05/23 0858 methocarbamol (ROBAXIN) tablet 500 mg 500 mg Oral QID PRN Sussy Villeda APRN CARPET INSPECTOR 500 mg at 10/05/23 0617 ondansetron (ZOFRAN-ODT) disintegrating tablet 4 mg 4 mg Oral Q6H PRN Nicole Moss MD 4 mg at 10/02/23 0014 And ondansetron (ZOFRAN) injection 4 mg 4 mg Intravenous Q6H PRN Nicole Moss MD 4 mg at 09/30/23 1547 And prochlorperazine (COMPAZINE) injection 5 mg 5 mg Intravenous Q6H PRN Nicole Moss MD 5 mg at 10/01/23 1245 And metoclopramide (REGLAN) injection 5 mg 5 mg Intravenous Q6H PRN Nicole Moss MD mupirocin (BACTROBAN) 2 % ointment Topical TID Hina Nielson PA-C Given at 10/04/23 210 naloxone (NARCAN) injection 0.2 mg 0.2 mg Intravenous PRN per Parameters Sussy Villeda APRN,CARPET INSPECTOR oxyCODONE (ROXICODONE) immediate release tablet 10 mg 10 mg Oral Q4H PRN Candelaria Johnson APRN, CNP 10 mg at 10/05/23 0620 polyethylene glycol (MIRALAX) oral powder 17 g 17 g Oral DAILY PRN Lubna Sommer PA-C 17 g at 10/01/23 1044 senna (SENOKOT) tablet 2 Tablet 2 Tablet Oral BID April Holt 2 Tablet at 10/02/23 0900 sodium chloride 0.9% injection 10 mL 10 mL Intravenous Q24H Lubna Sommer PA-C 10 mL at 10/04/23 2226 sodium chloride 0.9% injection 10 mL 10 mL Intravenous PRN per Parameters Lubna Sommer PA-C sodium chloride 0.9% injection 20 mL 20 mL Intravenous PRN per Parameters Lubna Sommer PA-C traZODone (DESYREL) tablet 200 mg 200 mg Oral At Bedtime Hina Nielson PA-C 200 mg at 10/04/232053 varenicline (CHANTIX) tablet 1 mg 1 mg Oral BID with meals Lubna Sommer PA-C 1 mg at 858 Current Outpatient Medications Ordered in [facility] Medication Sig Dispense Refill alteplase (CATHFLO ACTIVASE) 2 MG injection Administer 2 mg intravenously as needed (Line Occlusion) for up to 2 doses. Instill 2 mg into the occluded catheter, after 30 minutes dwell time assess, ifnot functional reassess again in 90 minutes. If still occluded may repeat 2 mg dose and reassess after 30 minutes. Dispense quantity sufficient for treatment course. Use per institutional policy. cefTRIAXone (ROCEPHIN) 2 g injection Administer 2,000 mg (2 g) intravenously every 12 hours for 23 days. Reconstitute and/or dilute per home infusion pharmacy/facility compounding standards or use premade bag if available. This order should end on 10/26/23 , date inclusive. emollient (AQUAPHOR) ointment Apply topically three times a day. gabapentin (NEURONTIN) 400 MG capsule Take 1 Capsule (400 mg) by mouth three times a day. 90 Capsule 0 heparin PF, Pork, 100 UNIT/ML injection Administer 5 mL (500 Units) intravenously as needed (line patency). Dispense quantity sufficient for treatment course. Use per institutional policy. hydrOXYzine pamoate (VISTARIL) 50 MG capsule Take 1 Capsule (50 mg) by mouth 4 times daily as needed. Indications: pain 40 Capsule 0 methocarbamol (ROBAXIN) 500 MG tablet Take 1 Tablet (500 mg) by mouth 4 times daily as needed. 40 Tablet 0 ondansetron (ZOFRAN-ODT) 4 MG disintegrating tablet Dissolve 1 Tablet (4 mg) by mouth every 6 hoursas needed. Indications: Nausea and Vomiting 10 Tablet 0 oxyCODONE HCl (ROXICODONE) 10 MG immediate release tablet Take 1 Tablet (10 mg) by mouth every 4 hours as needed for Pain. Indications: Acute Pain 20 Tablet 0 sodium chloride 0.9% injection Administer 10 mL intravenously as needed (For Line patency. Before and After Medications or Lab draw.). Dispense quantity sufficient for treatment course. Use per institutional policy. PHYSICAL EXAMINATION: VITAL SIGNS: Blood pressure 106/59, pulse 62, temperature 97.7 ??F (36.5 ??C), temperature source Oral, resp. rate 16, height 5' 5 (1.651 m), weight 77.8 kg (171 lb 8 oz), SpO2 95%, not currently . General: In no distress HEENT: some dry scabbing in the facial read from the resection Lungs: respirations even MSK: Neuro:Alert Psych: appropriate affect TIME SPENT: 35 minutes including [id number] time counseling her about her diagnosis and treatment options, and coordinating care with the primary team. DECISION-MAKING: The level of decision-making in this case is high/complex due to the complexity ofmedical problems, acute/chronic pain, opioid analgesia issues, and behavioral factors. Eliud Blount M.D. * Hina Nielson PA-C - 10/05/2023 7:39 AM CDT Neurosurgery Progress Note [facility] Date of service: 10/05/2023 Assessment 58 year old female who is 2 [...] go to the ED. She went to [facility] as she was there visiting a loved one. She transferred to [facility] for further evaluation and management Plan: [...] above stated plan. Hina Nielson PA-C Neurosurgery Subjective: No acute neurosurgical events overnight. Patient is sitting up in the chair this morning. Reports she is feeling better today, endorsing improvement in headache following the blood patch. Denies worsening headache, changes in vision, dizziness, nausea, vomiting, numbness, tingling, weakness. Discussed tentative plan for discharge today and patient was agreeable. Objective: Vitals - BP 109/57 (BP Cuff Size: Regular) Pulse 60 Temp 98.4 ??F (36.9 ??C) (Oral) Resp 16 Ht 5' 5(1.651 m) Wt 77.8 kg (171 lb 8 oz) SpO2 95% BMI 28.54 kg/m?? Temp (24hrs), Av.2 ??F (36.8 ??C), Min:97.8 ??F (36.6 ??C), Max:98.5 ??F (36.9 ??C) Physical Exam - Alertness: Alert/oriented x 3, following commands, naming/repeating intact General: in no acute distress Skin: bilateral eyebrow crani, nasion with superficial crusting. Mildly erythematous base. Respiratory: Breathing unlabored Neuro: EOMI, face symmetric, tongue midline, hearing and speech intact, shrugs shoulders Strength: 5/5 BUE/BLE Sensation: SILT, no numbness acetaminophen 325 mg Oral Q6H cefTRIAXone 2 g Intravenous Q12H(NS) emollient Topical TID [Held by provider in Manage Orders] enoxaparin 40 mg Subcutaneous Q24H famotidine 20 mg Oral BID before meals gabapentin 200 mg Oral TID levETIRAcetam 500 mg Oral BID mupirocin Topical TID senna 2 Tablet Oral BID sodium chloride 0.9% 10 mL Intravenous Q24H traZODone 200 mg Oral At Bedtime varenicline 1 mg Oral BID with meals Imaging: (all below imaging studies were reviewed independently) MR Brain 09/28/23 IMPRESSION: 1. 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 2. Increased enhancement along the resection margins is favored to reflect subacute evolution of ischemic changes initially demonstrated on 09/15/2023. Decreased vasogenic edema and absence of progressive diffusion abnormalities lessen the likelihood of infectious change at the resection site but donot exclude it. 3. Persistent fluid in the frontal sinus exenteration bed. There is increased enhancement along themargins of this fluid. Infection not excluded by MRI. 4. Increased soft tissue thickening and edema at the presumed incision site, which could reflect infection in the appropriate clinical context. 5. No findings specific for residual tumor. CT Head 10/01/23: 1. Redemonstrated postoperative changes from a planum sphenoidale meningioma resection. Postoperative changes are evaluated to overall better effect on recent brain MRI, and appear overall unchanged. 2. No superimposed acute intracranial abnormality elsewhere. LABS: Hemoglobin Date Value Ref Range Status 10/01/2023 12.0 12.0 - 15.5 g/dL Final Normal: - Sodium Date Value Ref Range Status 10/01/2023 137 136 - 145 mmol/L Final INR Date Value Ref Range Status 09/14/2023 1.0 0.9 - 1.1 Final Platelets Date Value Ref Range Status 10/01/2023 245 150 - 450 x10(9)/L Final * Chalo Harp MD - 10/04/2023 1:22 PM CDT [facility] Follow Up Note The inpatient pain service is continuing to follow Ruthann Rosas for her back pain at the request of her hospital team. DATE: 10/04/2023 ASSESSMENT: Admission for surgical incision infection Positional headache Meningioma resection eyebrown cranitotomy 09/1309/14/23 Generalized anxiety disorder History of alcohol use disorder RECOMMENDATIONS/PLAN: *Please note that unless specifically noted below, the inpatient pain service does not write orders. Patient doing well after blood patch. Currently no specific concerns. Discussed plan to decrease oxycodone as she feels better Thank you for consulting the Inpatient Pain Management Service.Please do not hesitate to contact uswith any questions. Chlao Harp M.D. [facility] CHIEF PAIN COMPLAINT: Headache INTERVAL HISTORY: Patient had blood patch earlier this afternoon and overall is doing well. Feels happy that something was done to try to help with her headaches. Denies any side effects or issues right now either from the procedure or from her medications. CURRENT PAIN MEDICATIONS: Tylenol Gabapentin 200 mg t.i.d. Hydroxyzine Toradol Methocarbamol Oxycodone 10 mg q.4 hours p.r.n. Trazodone PHYSICAL EXAM: B/P: Blood pressure 122/67, pulse 65, temperature 97.8 ??F (36.6 ??C), temperature source Oral, resp. rate 16, height 5' 5 (1.651 m), weight 171 lb 8 oz (77.8 kg), SpO2 94%, not currently . EXAM: General: In no distress HEENT: NCAT Lungs: respirations even MSK: Neuro:Alert Psych: appropriate affect * Lexis Simpson PA-C - 10/04/2023 1:02 PM CDT HOSPITAL MEDICINE PROGRESS NOTE Date of Service: 10/04/2023 Primary diagnosis: surgical wound infection, impetigo, MURILLO SUBJECTIVE: Still having positional headache, 07/07. Feels like toradol and/or gabapentin helped yesterday, but does not feel ready to discharge until current headache is improved. Didn't go through with blood patch yesterday due to no one explaining it to her and wanting to trial gabapentin and toradol first Notes she needs semi-electric bed due to R rotator cuff repair in 05/2023, is still on precautions OBJECTIVE: VS: BP 122/67 (BP Cuff Size: Regular) Pulse 65 Temp 97.8 ??F (36.6 ??C) (Oral) Resp 16 Ht 5' 5 (1.651 m) Wt 77.8 kg (171 lb 8 oz) SpO2 94% BMI 28.54 kg/m?? General: A&Ox3, no apparent distress HEENT: honey crusted lesions on eyebrows, forehead, nose. EOMs grossly equal bilaterally. Moist mucous membranes. CV: RRR, S1 S2 +, No M/R Lungs: CTA b/l, No Wheezing, No accessory muscle use Abd: Normal BS, soft, NT/ND Ext: No C/C/E Skin: Warm and dry, no rash Neuro: Face symmetric. Sensation intact to light touch throughout. Alert and conversant. Intake/Output Summary (Last 24 hours) at 10/04/2023 1303 Last data filed at 10/03/2023 1600 Gross per 24 hour Intake 1480 ml Output -- Net 1480 ml IMAGING: Brain MRI 09/27: 1. 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 2. Increased enhancement along the resection margins is favored to reflect subacute evolution of ischemic changes initially demonstrated on 09/15/2023. Decreased vasogenic edema and absence of progressive diffusion abnormalities lessen the likelihood of infectious change at the resection site but donot exclude it. 3. Persistent fluid in the frontal sinus exenteration bed. There is increased enhancement along themargins of this fluid. Infection not excluded by MRI. 4. Increased soft tissue thickening and edema at the presumed incision site, which could reflect infection in the appropriate clinical context. 5. No findings specific for residual tumor. Head CT 09/30: 1. Redemonstrated postoperative changes from a planum sphenoidale meningioma resection. Postoperative changes are evaluated to overall better effect on recent brain MRI, and appear overall unchanged. 2. No superimposed acute intracranial abnormality elsewhere. CXR 09/30: Heart size at upper limits normal for portable technique. Right chest port catheter tip at mid SVC level. Probable calcified left central granuloma. No visible pneumothorax or pleural effusion. ASSESSMENT & PLAN: Ruthann Rosas is a 58 y.o. old female with a history of meningioma s/p eyebrown craniotomy 09/13with asymptomatic postoperative bradycardia who is readmitted to [facility] with draining surgicalwound and facial erythema and edema. Changes today: D/w Neurosurgery, consider d/c tomorrow if headache improved Blood patch recommended by pain MD yesterday for PDPH, I also recommended this as MURILLO worsened/became positional after LP on 09/30; pt wants to discuss with IR and/or pain MD before doing this - appreciate IR and pain provider input Appreciate wound RN consult and recs Surgical incision infection Facial Impetigo with bilateral periorbital erythema and edema Presenting sx: wound drainage, erythema, edema, headache. Mild leukocytosis and elevated CRP. MRI brain completed on admission with edema/soft tissue thickening at incision site and fluid in frontal sinus - challenging to say if postop edema/fluid vs infection Discussed PICC ending at mid-SVC with radiology, they state this does not need to be adjusted - Head CT repeated 10/01/2023 with worsening headache, no bleed or notable changes - NSG following - no indication for surgical intervention, do not suspect deeper infx - ID following - MRSA swab negative - started on zosyn/vanco, transitioned to cefazolin 09/29/2023, changed to ceftriaxone 09/30/2023 - plan for 4wk course of ceftriaxone, placed PICC 10/01/2023 - LP ordered for worsening headache, this was completed 10/01/2023, meningitis panel negative - blood patch recommended as above Patient will require a SEMI-ELECTRIC hospital bed at home due to post-meningioma resection. The patient requires frequent changes in body position and/or has an immediate need for a change in body position. She is still on R shoulder restrictions after rotator cuff repair in 05/2023. Headache Present on admission, attributed to recent sx and new surgical wound infx. MRI brain completed on admission. Pt has had headache since discharge from craniotomy but reportedly had been improving before patient developed above infection. Pain located over her face and the top of her head. No nuchal r igidity. No vision changes. Denies regular caffeine intake. No history of migraines. D/w pt possible rebound effect secondary to pain meds. Pain medications increased 09/29. 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 Dc tele 09/30/2023 with no further episodes of bradycardia NSG, ID, nursing notes reviewed, labs reviewed and pertinent labs for monitoring ordered. Discussedmanagement of infection and clinical plan of care with interdisciplinary team including bedside nurse, ID, CM, pain MD, NSG Lines/tethers: PIV DVTppx: per neurosurgery - lovenox being held, I messaged NS re: whether they want to resume Dispo: pending improvement in MURILLO FEN: regular Code: Full Lexis Simpson PA-C [facility], [facility] * Maggie Ding PA-C - 10/04/2023 7:36 AM CDT Neurosurgery Progress Note [facility] Date of service: 10/04/2023 Assessment 58 year old female who is 2 [...] go to the ED. She went to [facility] as she was there visiting a loved one. She transferred to [facility] for further evaluation and management Plan: - Hospital medicine primary - ID consulted, suspect impetigo, switched to ceftriaxone, favoring 4 weeks IV abx through 10/26/23.COPAT ordered -Wound Team to evaluate: Recommended Vashe wash and ointment for treatment. - okay for HOB per patient preference. Patient reports improvement in MURILLO, but still with a positional component. Pain discussed possibility of blood patch. This would be acceptable to see if it benefits MURILLO. Discussed with Medicine. - LP completed 10/01/23 - no evidence of infection - General cares, q 4hr neuro checks - No plans for neurosurgical intervention at this time - Multimodal pain control. On scheduled Tylenol, Gabapentin, Toradol. PRN oxycodone - Regular diet, bowel regimen - SCDs in bed, lovenox 40mg daily - Consult PT/OT to advance activities and for dispo planning. -Hopeful discharge to home 10/04. Patient in agreement. Neurosurgery will continue to follow Patient evaluated and reviewed with Dr. Munguia, who agrees with the above stated plan. Maggie Ding PA-C , [facility] Neurosurgery Subjective: Ruthann is feeling better today with the addition of Toradol. States she continues to feel a pressure in the head frontally when upright. Better with being in bed flatter. No acute neurosurgical events overnight. Objective: Vitals - BP 115/63 (BP Cuff Size: Regular) Pulse 61 Temp 97.6 ??F (36.4 ??C) (Oral) Resp 17 Ht 5' 5(1.651 m) Wt 77.8 kg (171 lb 8 oz) SpO2 93% BMI 28.54 kg/m?? Temp (24hrs), Av.1 ??F (36.7 ??C), Min:97.6 ??F (36.4 ??C), Max:98.5 ??F (36.9 ??C) Physical Exam - Alertness: Alert/oriented x 3, following commands General: in no acute distress Skin: bilateral eyebrow crani, nasion with superficial crusting. Mildly erythematous base. Evaluated by Wound. Respiratory: Breathing unlabored Neuro: EOMI, face symmetric, tongue midline, hearing and speech intact Strength: 5/5 BUE/BLE Sensation: SILT, no numbness Skin: acetaminophen 325 mg Oral Q6H cefTRIAXone 2 g Intravenous Q12H(NS) [Held by provider in Manage Orders] enoxaparin 40 mg Subcutaneous Q24H famotidine 20 mg Oral BID before meals gabapentin 200 mg Oral TID levETIRAcetam 500 mg Oral BID mupirocin Topical TID senna 2 Tablet Oral BID sodium chloride 0.9% 10 mL Intravenous Q24H traZODone 200 mg Oral At Bedtime varenicline 1 mg Oral BID with meals Imaging: (all below imaging studies were reviewed independently) MR Brain 09/28/23 IMPRESSION: 1. 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 2. Increased enhancement along the resection margins is favored to reflect subacute evolution of ischemic changes initially demonstrated on 09/15/2023. Decreased vasogenic edema and absence of progressive diffusion abnormalities lessen the likelihood of infectious change at the resection site but donot exclude it. 3. Persistent fluid in the frontal sinus exenteration bed. There is increased enhancement along themargins of this fluid. Infection not excluded by MRI. 4. Increased soft tissue thickening and edema at the presumed incision site, which could reflect infection in the appropriate clinical context. 5. No findings specific for residual tumor. CT Head 10/01/23: 1. Redemonstrated postoperative changes from a planum sphenoidale meningioma resection. Postoperative changes are evaluated to overall better effect on recent brain MRI, and appear overall unchanged. 2. No superimposed acute intracranial abnormality elsewhere. LABS: Hemoglobin Date Value Ref Range Status 10/01/2023 12.0 12.0 - 15.5 g/dL Final Normal: 12-17 Sodium Date Value Ref Range Status 10/01/2023 137 136 - 145 mmol/L Final INR Date Value Ref Range Status 09/14/2023 1.0 0.9 - 1.1 Final Platelets Date Value Ref Range Status 10/01/2023 245 150 - 450 x10(9)/L Final * Rosalina Hannah MD - 10/03/2023 4:40 PM CDT [facility] Infectious Disease Progress Note () Subjective: Headache has improved Just received a massage and thinks she's melting into the bed Also had wound care for her face Vital signs: Patient Vitals for the past 24 hrs: BP Temp Temp src Pulse Resp SpO2 10/03/23 1624 112/65 98.5 ??F (36.9 ??C) Oral 61 16 92 % 10/03/23 0847 108/62 98.1 ??F (36.7 ??C) Oral (!) 57 18 93 % 10/02/23 2344 98/54 98.1 ??F (36.7 ??C) Oral 64 16 95 % Physical Exam: GEN - NAD, sitting comfortably HEENT - erythema with signfiicant crusting in between eye brow and over nose, overall improving Neck supple Respiratory - symmetric chest rise Abdomen - soft, nt, nd Musculoskeletal - ROM normal of all extremities Psych - normal mood Neuro - normal speech, conversive and interactive Labs/Studies: Recent Labs 10/01/23 0724 SODIUM 137 K 3.7 CHLORIDE 106 BUN 9 CREATININE 0.67 GLUCOSE 119* CA 8.8 ANIONGAP 7 Hemoglobin Date Value Ref Range Status 10/01/2023 12.0 12.0 - 15.5 g/dL Final 09/29/2023 11.1 (L) 12.0 - 15.5 g/dL Final 09/28/2023 12.0 12.0 - 15.5 g/dL Final WBC Date Value Ref Range Status 10/01/2023 10.2 3.5 - 10.5 x10(9)/L Final 09/29/2023 9.8 3.5 - 10.5 x10(9)/L Final 09/28/2023 10.4 3.5 - 10.5 x10(9)/L Final Platelets Date Value Ref Range Status 10/01/2023 245 150 - 450 x10(9)/L Final AST (SGOT) Date Value Ref Range Status 09/20/2023 10 10 - 40 U/L Final ALT (SGPT) Date Value Ref Range Status 09/20/2023 28 <=55 U/L Final Bilirubin, Total Date Value Ref Range Status 09/20/2023 0.2 0.2 - 1.2 mg/dL Final Microbiology: Csf studies with WBC 2 Meningitis/encephalitis panel negative MRSA nares pcr neg CSF culture - no growth x 1 day Imaging personally reviewed: Assessment: Ruthann Rosas is a 58 y.o. female with recent eyebrow craniotomy and meningioma resection 2 weeks prior to admission presenting with drainage from incision site along with redness and swelling along incision for 2 days. Patient was seen in neurosurgery clinic on 09/26 and started on Keflex. Shecontinued to have drainage and swelling incision and family recommended that she go to the ED. Patient went to [facility] and then transferred to [facility] for further evaluation and management. At [facility], patient was started on vancomycin and Zosyn. Patient had mild leukocytosis to 11.2 on admission (of note, has been on vanco and zosyn from OSH),CRP 6, improving currently. Afebrile. MRI brain significant for post op changes, increased enhancement along resection margins, subacute evolution of ischemic changes initially seen 09/15/23 imaging. Decreased vasogenic edema. Persistent fluid in frontal sinus bed. Increased enhancement along margins of this fluid. Increased soft tissuethickening and edema at presumed incision site. MSSA/MRSA pre-op culture negative. MRI without any osseus involvement. At risk for resistant organisms considering recent surgery but patient's skin lesions classic of impetigo and started on skin and would narrow antibiotics and monitor clinicla improvement. Most likely impetigo is her presentation and now slight improvement in her symptoms. Repeat MRSA this admission is negative. Has been having ongoing headache and with MRI findings significant for possible extension of the infection into deeper structures - Decreased vasogenic edema and absence of pr ogressive diffusion abnormalities lessen the likelihood of infectious change at the resection site but do not exclude it. Also has persistent fluid in frontal sinus, will likely favor a longer courseof IV antibiotics Patient is having persistent headaches of unclear etiology, thought to be meningitis however LP negative. Currently being managed with pain management and primary team. Pain appears more positional rather than worsening of infection. Recommendations: - continue Ceftriaxone 2g IV q12h - end-date for antibiotics 10/26/23 - IV abx orders, labs and follow up orders in place - copat instructions in place for follow up - ID follow up in 2 weeks - ID signing off, please call for further questions or concerns. Billing based on: Complexity Counseling/coordination of care done, which included reviewing EPIC notes, labs, imaging, vitals, and discussing plan of care with the patient and primary team and in agreement with plan. Rosalina Hannah MD Infectious Disease Please call for further questions or concerns * Lexis Simpson PA-C - 10/03/2023 8:31 AM CDT HOSPITAL MEDICINE PROGRESS NOTE Date of Service: 10/03/2023 Primary diagnosis: surgical wound infection, impetigo, MURILLO SUBJECTIVE: Discussed headache at length - reports 8/10 MURILLO last night when she was upright and daughter was doing her hair. MURILLO 8/10 again this AM but only when sitting up, improved to 2-4/10 after getting pain medications (oxycodone, robaxin, APAP, hydroxyzine) and laying down. Doesn't think fioricet x2 doses yesterday helped. While MURILLO has worsened since admission (prompting LP), the positional nature of the MURILLO seems to haveworsened since the LP. OBJECTIVE: VS: BP 98/54 (BP Cuff Size: Regular) Pulse 64 Temp 98.1 ??F (36.7 ??C) (Oral) Resp 16 Ht 5'5 (1.651 m) Wt 77.8 kg (171 lb 8 oz) SpO2 95% BMI 28.54 kg/m?? General: A&Ox3, no apparent distress HEENT: honey crusted lesions on eyebrows, forehead, nose. EOMs grossly equal bilaterally. Moist mucous membranes. CV: RRR, S1 S2 +, No M/R Lungs: CTA b/l, No Wheezing, No accessory muscle use Abd: Normal BS, soft, NT/ND Ext: No C/C/E Skin: Warm and dry, no rash Neuro: Face symmetric. Sensation intact to light touch throughout. Alert and conversant. No intake or output data in the 24 hours ending 10/03/23 0831 IMAGING: Brain MRI 09/27: 1. 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 2. Increased enhancement along the resection margins is favored to reflect subacute evolution of ischemic changes initially demonstrated on 09/15/2023. Decreased vasogenic edema and absence of progressive diffusion abnormalities lessen the likelihood of infectious change at the resection site but donot exclude it. 3. Persistent fluid in the frontal sinus exenteration bed. There is increased enhancement along themargins of this fluid. Infection not excluded by MRI. 4. Increased soft tissue thickening and edema at the presumed incision site, which could reflect infection in the appropriate clinical context. 5. No findings specific for residual tumor. Head CT 09/30: 1. Redemonstrated postoperative changes from a planum sphenoidale meningioma resection. Postoperative changes are evaluated to overall better effect on recent brain MRI, and appear overall unchanged. 2. No superimposed acute intracranial abnormality elsewhere. CXR 09/30: Heart size at upper limits normal for portable technique. Right chest port catheter tip at mid SVC level. Probable calcified left central granuloma. No visible pneumothorax or pleural effusion. ASSESSMENT & PLAN: Ruthann Rosas is a 58 y.o. old female with a history of meningioma s/p eyebrown craniotomy 09/13with asymptomatic postoperative bradycardia who is readmitted to [facility] with draining surgicalwound and facial erythema and edema. Changes today: No discharge given 10/07 positional MURILLO Ordered 1L bolus (for hydration and soft BP) Requested pain medicine consult - they are concerned that MURILLO is worse after LP and will discuss with IR, also started gabapentin D/w neurosurgery PA, she will discuss whether toradol is ok with Dr. Munguia (previous notes said toavoid NSAIDs x4 wks after surgery) Massage therapy requested Surgical incision infection Facial Impetigo with bilateral periorbital erythema and edema Presenting sx: wound drainage, erythema, edema, headache. Mild leukocytosis and elevated CRP. MRI brain completed on admission with edema/soft tissue thickening at incision site and fluid in frontal sinus - challenging to say if postop edema/fluid vs infection Discussed PICC ending at mid-SVC with radiology, they state this does not need to be adjusted - Head CT repeated 10/01/2023 with worsening headache, no bleed or notable changes - NSG following - no indication for surgical intervention, do not suspect deeper infx - ID following - MRSA swab negative - started on zosyn/vanco, transitioned to cefazolin 09/29/2023, changed to ceftriaxone 09/30/2023 - plan for 4wk course of ceftriaxone, placed PICC 10/01/2023 - LP ordered for worsening headache, this was completed 10/01/2023, meningitis panel negative Patient will require a SEMI-ELECTRIC hospital bed at home due to post-meningioma resection. The patient requires frequent changes in body position and/or has an immediate need for a change in body position. Headache Present on admission, attributed to recent sx and new surgical wound infx. MRI brain completed on admission. Pt has had headache since discharge from craniotomy but reportedly had been improving before patient developed above infection. Pain located over her face and the top of her head. No nuchal r igidity. No vision changes. Denies regular caffeine intake. No history of migraines. D/w pt possible rebound effect secondary to pain meds. Pain medications increased 09/29. 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 Dc tele 09/30/2023 with no further episodes of bradycardia NSG, ID, nursing notes reviewed, labs reviewed and pertinent labs for monitoring ordered. Discussedmanagement of infection and clinical plan of care with interdisciplinary team including bedside nurse, ID, CM, pain MD, NSG Lines/tethers: PIV DVTppx: per neurosurgery - lovenox being held, I messaged NS re: whether they want to resume Dispo: pending improvement in MURILLO FEN: regular Code: Full Lexis Simpson PA-C [facility], [facility] * Hina Nielson PA-C - 10/03/2023 7:49 AM CDT Neurosurgery Progress Note [facility] Date of service: 10/03/2023 Assessment 58 year old female who is 2 [...] go to the ED. She went to [facility] as she was there visiting a loved one. She transferred to [facility] for further evaluation and management Plan: - Hospital medicine primary - ID consulted, suspect impetigo, switched to ceftriaxone, favoring 4 weeks IV abx - okay for HOB flat to 15 degrees. Patient reports improvement in MURILLO. - LP completed 10/01/23 - no evidence of infection - General cares, q 4hr neuro checks - No plans for neurosurgical intervention at this time - Multimodal pain control for headache- headache prior to admit is ongoing--scheduled tylenol, and robaxin/vistaril/oxy 10mg q4hr, trialing toradol 15mg q6hr prn, pain consult per primary team (avoiding IV narcotics as pt is 2 weeks out from surgery and can cause rebound headaches) - Regular diet, bowel regimen - OOB as able, will consult PT/OT if needed, MURILLO improved with HOB flat - SCDs in bed, lovenox 40mg daily - Dispo pending clinical course Neurosurgery will continue to follow Patient discussed with Dr. Munguia, who agrees with the above stated plan. Hina Nielson PA-C Neurosurgery Subjective: No acute neurosurgical events overnight. Patient continues to endorse ongoing headache with sittingup that is improved with lying flat. She reports current pain regimen is helping. Objective: Vitals - BP 98/54 (BP Cuff Size: Regular) Pulse 64 Temp 98.1 ??F (36.7 ??C) (Oral) Resp 16 Ht 5' 5 (1.651 m) Wt 77.8 kg (171 lb 8 oz) SpO2 95% BMI 28.54 kg/m?? Temp (24hrs), Av.1 ??F (36.7 ??C), Min:98 ??F (36.7 ??C), Max:98.2 ??F (36.8 ??C) Physical Exam - Alertness: Alert/oriented x 3, following commands, naming/repeating intact General: in no acute distress Respiratory: Breathing unlabored Neuro: EOMI, face symmetric, tongue midline, hearing and speech intact Strength: 5/5 BUE/BLE Sensation: SILT, no numbness Skin: Eyebrow incision with some flaking noted along incision. Eyes with improved swelling this am.Forehead, cheeks, and chin with erythema, improved. Imaging: (all below imaging studies were reviewed independently) MR Brain 09/28/23 IMPRESSION: 1. 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 2. Increased enhancement along the resection margins is favored to reflect subacute evolution of ischemic changes initially demonstrated on 09/15/2023. Decreased vasogenic edema and absence of progressive diffusion abnormalities lessen the likelihood of infectious change at the resection site but donot exclude it. 3. Persistent fluid in the frontal sinus exenteration bed. There is increased enhancement along themargins of this fluid. Infection not excluded by MRI. 4. Increased soft tissue thickening and edema at the presumed incision site, which could reflect infection in the appropriate clinical context. 5. No findings specific for residual tumor. CT Head 10/01/23: 1. Redemonstrated postoperative changes from a planum sphenoidale meningioma resection. Postoperative changes are evaluated to overall better effect on recent brain MRI, and appear overall unchanged. 2. No superimposed acute intracranial abnormality elsewhere. LABS: Hemoglobin Date Value Ref Range Status 10/01/2023 12.0 12.0 - 15.5 g/dL Final Normal: 12-17 Sodium Date Value Ref Range Status 10/01/2023 137 136 - 145 mmol/L Final INR Date Value Ref Range Status 09/14/2023 1.0 0.9 - 1.1 Final Platelets Date Value Ref Range Status 10/01/2023 245 150 - 450 x10(9)/L Final * Guillermina Navarro RN - 10/03/2023 4:46 AM CDT Pt remains alert and orientedx4. Cont to medicate for headache around the clock with oxycodone, robaxin and vistaril along with scheduled tylenol. Up add ryne and with SBA. Rating pain level lower than previous nights. * Rosalina Hannah MD - 10/02/2023 9:59 PM CDT [facility] Infectious Disease Progress Note () Subjective: Headache has improved when lying down it's more positional is what she found Facial edema and erythema continuing to improve Vital signs: Patient Vitals for the past 24 hrs: BP Temp Temp src Pulse Resp SpO2 10/02/23 1617 111/67 98.2 ??F (36.8 ??C) Oral 66 16 92 % 10/02/23 0818 96/48 98 ??F (36.7 ??C) Oral 66 16 92 % 10/02/23 0330 104/64 98.1 ??F (36.7 ??C) Oral (!) 58 16 95 % 10/02/23 0003 102/50 -- -- 67 -- -- 10/02/23 0001 98/48 -- -- 66 -- -- 10/01/23 2358 (!) 87/46 -- -- 63 -- -- 10/01/23 2348 (!) 82/38 97.7 ??F (36.5 ??C) Oral 63 16 (!) 90 % Physical Exam: GEN - NAD, sitting comfortably HEENT - erthema with signfiicant crusting in between eye brown and slightly over the nose, erythemaextends to cheeks and chin, decreased swelling overall and less sensitivity on palpation Neck supple, PERRLA Respiratory - symmetric chest rise Abdomen - soft, nt, nd Musculoskeletal - ROM normal of all extremities Psych - normal mood Neuro - no focal deficits noted, normal speech, conversive and interactive Labs/Studies: Recent Labs 10/01/23 0724 SODIUM 137 K 3.7 CHLORIDE 106 BUN 9 CREATININE 0.67 GLUCOSE 119* CA 8.8 ANIONGAP 7 Hemoglobin Date Value Ref Range Status 10/01/2023 12.0 12.0 - 15.5 g/dL Final 09/29/2023 11.1 (L) 12.0 - 15.5 g/dL Final 09/28/2023 12.0 12.0 - 15.5 g/dL Final WBC Date Value Ref Range Status 10/01/2023 10.2 3.5 - 10.5 x10(9)/L Final 09/29/2023 9.8 3.5 - 10.5 x10(9)/L Final 09/28/2023 10.4 3.5 - 10.5 x10(9)/L Final Platelets Date Value Ref Range Status 10/01/2023 245 150 - 450 x10(9)/L Final AST (SGOT) Date Value Ref Range Status 09/20/2023 10 10 - 40 U/L Final ALT (SGPT) Date Value Ref Range Status 09/20/2023 28 <=55 U/L Final Bilirubin, Total Date Value Ref Range Status 09/20/2023 0.2 0.2 - 1.2 mg/dL Final Microbiology: Csf studies with WBC 2 Meningitis/encephalitis panel negative MRSA nares pcr neg Imaging personally reviewed: Assessment: Ruthann Rosas is a 58 y.o. female with recent eyebrow craniotomy and meningioma resection 2 weeks prior to admission presenting with drainage from incision site along with redness and swelling along incision for 2 days. Patient was seen in neurosurgery clinic on 09/26 and started on Keflex. Shecontinued to have drainage and swelling incision and family recommended that she go to the ED. Patient went to [facility] and then transferred to [facility] for further evaluation and management. At [facility], patient was started on vancomycin and Zosyn. Patient had mild leukocytosis to 11.2 on admission (of note, has been on vanco and zosyn from OSH),CRP 6, improving currently. Afebrile. MRI brain significant for post op changes, increased enhancement along resection margins, subacute evolution of ischemic changes initially seen 09/15/23 imaging. Decreased vasogenic edema. Persistent fluid in frontal sinus bed. Increased enhancement along margins of this fluid. Increased soft tissuethickening and edema at presumed incision site. MSSA/MRSA pre-op culture negative. MRI without any osseus involvement. At risk for resistant organisms considering recent surgery but patient's skin lesions classic of impetigo and started on skin and would narrow antibiotics and monitor clinicla improvement. Most likely impetigo is her presentation and now slight improvement in her symptoms. Repeat MRSA this admission is negative. Has been having ongoing headache and with MRI findings significant for possible extension of the infection into deeper structures - Decreased vasogenic edema and absence of pr ogressive diffusion abnormalities lessen the likelihood of infectious change at the resection site but do not exclude it. . Also has persistent fluid in frontal sinus, will likely favor a longer course of IV antibiotics Patient is having persistent headaches of unclear etiology, thought to be meningitis however LP negative. Recommendations: - continue Ceftriaxone 2g IV q12 - agree with discontinuing valacyclovir - favor at least 4 weeks of IV antibiotics - counseled patient that a repeat MRI may not show much difference in few days, may benefit from repeat imaging closer to end of antibiotics however - ID will continue to follow Billing based on: Complexity Counseling/coordination of care done, which included reviewing EPIC notes, labs, imaging, vitals, and discussing plan of care with the patient and nursing staff. Rosalina Hannah MD Infectious Disease Please call for further questions or concerns * Ashwini Pantoja RN - 10/02/2023 7:55 PM CDT Alert/oriented x4. Independent in room. Continues to complain of 4-7/10 headache and face pain, medicated with scheduled tylenol and prn oxycodone, robaxin, vistaril and Fioricet around the clock with some relief stated on reassessment. Reports increased pain with sitting upright and walking but can achieve some relief when lying back down. Decreased facial redness noted today. Care hours [id number] * Lubna Sommer PA-C - 10/02/2023 7:54 AM CDT [facility] Medicine Progress Note Date of Service: 10/02/2023 Subjective: Continues to complain of headache. Today reporting that headache is positional, worse with upright positioning. Adamant that this is not a new development since LP. No photophobia. Rash improving. Nausea improving, tolerated breakfast. RN reports patient is independent in her room. No other complaints. Objective: BP 104/64 (BP Cuff Size: Regular) Pulse (!) 58 Temp 98.1 ??F (36.7 ??C) (Oral) Resp 16 Ht 5' 5 (1.651 m) Wt 77.8 kg (171 lb 8 oz) SpO2 95% BMI 28.54 kg/m?? General Appearance: 58 y.o. female in NAD sitting up in bed. HEENT: Moist mucous membranes. Pupils are round and sclera anicteric. Respiratory: Regular respirations on RA Clear to auscultation bilaterally, no wheezing Cardiovascular: Regular rate and rhythm. No murmurs. No peripheral edema. Musculoskeletal: calves are soft and non-tender. Neurologic: A&O, speech is clear. Skin: erythema over her forehead, nose, bilateral max and chin-continues to improve daily. Crustingthick between eyebrows and L nasolabial fold. No intact blisters. Periorbital edema has resolved. Labs: Meningitis panel -negative CSF clear. Nml counts-glucose and protein, nml opening pressure -fungal pending -AFB pending Anaerobic culture pending Lab Results Component Value Date/Time CRP 2.2 (H) 10/01/2023 07:24 AM CRP 2.6 (H) 09/29/2023 04:44 AM CRP 2.9 (H) 09/28/2023 05:07 PM Lab Results Component Value Date/Time WBC 10.2 10/01/2023 01:31 PM WBC 9.8 09/29/2023 04:44 AM WBC 10.4 09/28/2023 05:[address] head: IMPRESSION: 1. Redemonstrated postoperative changes from a planum sphenoidale meningioma resection. Postoperative changes are evaluated to overall better effect on recent brain MRI, and appear overall unchanged. 2. No superimposed acute intracranial abnormality elsewhere. Assessment and Plan: Ruthann Rosas is a 58 y.o. old female with a history of meningioma s/p eyebrown craniotomy 09/13with asymptomatic postoperative bradycardia who is readmitted to [facility] with draining surgicalwound and facial erythema and edema. Surgical incision infx Facial Impetigo with bilateral periorbital erythema and edema Presenting sx, wound drainage, erythema, edema, headache. Mild leukocytosis and elevated CRP. MRI brain completed on admission with edema/soft tissue thickening at incision site and fluid in frontal sinus - challenging to say if postop edema/fluid vs infection -Head CT repeated 10/01/2023 with worsening headache, no bleed or notable changes -NSG following -no indication for surgical intervention, do not suspect deeper infx -ID following -MRSA swab negative -started on zosyn/vanco transitioned to cefazolin 09/29/2023, changed to ceftriaxone 09/30/2023 -plan for 4wk course of ceftriaxone, placed PICC 10/01/2023 -recommending LP with worsening headache, this was completed 10/01/2023. Meningitis panel negative. Headache Present on admission, attributed to recent sx and new surgical wound infx.MRI brain completed on admission. Pt has had headache since discharge from craniotomy but reportedly had been improving before patient developed above infection. Pain located over her face and the top of her head. No nuchal ri gidity. No vision changes. Denies regular caffeine intake. No history of migraines. D/w pt possiblerebound effect secondary to pain meds. Pain medications increased 09/29. 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 Dc tele 09/30/2023 with no further episodes of bradycardia NSG, ID, nursing notes reviewed, labs reviewed and pertinent labs for monitoring ordered. Discussedmanagement of infection and clinical plan of care with interdisciplinary team including bedside nurse, CHUY DVT Prophylaxis: enoxaparin FEN: regular diet. No IVFs Code status: Full Dispo: anticipate dc Tuesday for coordination of IV abx at home. CM working on home care for IV abx.Does not qualify for hospital bed at home. My colleague, Lexis Simpson PA-C will assume care tomorrow Lubna Sommer PA-C Hospital Medicine * Anita Pozo PA-C - 10/02/2023 6:54 AM CDT Neurosurgery Progress Note [facility] Date of service: 10/02/2023 Assessment 58 year old female who is 2 [...] go to the ED. She went to [facility] as she was there visiting a loved one. She transferred to [facility] for further evaluation and management Plan: - Hospital medicine primary - ID consulted, suspect impetigo, switched to cefazolin, certainly appreciate their assistance - okay for HOB flat to 15 degrees. Patient reports improvement in MURILLO. - LP completed 10/01/23 - General cares, q 4hr neuro checks - No plans for neurosurgical intervention at this time - Multimodal pain control for headache- headache prior to admit is ongoing--scheduled tylenol, and robaxin/vistaril/tramadol, increased dose oxycodone, started floricet on 10/02/23. could try gabapentin (avoiding IV narcotics as pt is 2 weeks out from surgery and can cause rebound headaches) - Regular diet, bowel regimen - OOB as able, will consult PT/OT if needed, MURILLO improved with HOB flat - SCDs in bed, lovenox 40mg daily - Dispo pending clinical course - rounded with Dr. Su Neurosurgery will continue to follow Plan of care discussed with patient and nursing staff. The patient and their images were reviewed with Dr. Su who is in agreement with this plan. Anita Pozo PA-C Neurosurgery [facility] For questions please call or page per Amion call schedule Total time spent with the patient was 25 minutes of which more than 50% was used in reviewing documentation/chart and imaging, coordination of care, and counseling time, including discussion of prognosis and various surgical and non- surgical treatment options and associated risks. Subjective: MURILLO continues. This does get better with HOB flat -15 degrees. Objective: Vitals - BP 104/64 (BP Cuff Size: Regular) Pulse (!) 58 Temp 98.1 ??F (36.7 ??C) (Oral) Resp 16 Ht 5' 5 (1.651 m) Wt 77.8 kg (171 lb 8 oz) SpO2 95% BMI 28.54 kg/m?? Temp (24hrs), Av.5 ??F (36.9 ??C), Min:97.7 ??F (36.5 ??C), Max:100 ??F (37.8 ??C) Physical Exam - Alertness: Alert/oriented x 3, following commands General: in no acute distress Respiratory: Breathing unlabored Neuro: EOMI, face symmetric, tongue midline, hearing and speech intact Strength: 5/5 BUE/BLE strong, gait stable Sensation: SILT, no numbness Skin: Eyebrow incision with yellow colored crust noted in middle of incision. Eyes with minimal swelling this am. Forehead, cheeks, and chin with erythema, improved. Pain: Headache dull on going Imaging: (all below imaging studies were reviewed independently) MR Brain 09/28/23 IMPRESSION: 1. 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 2. Increased enhancement along the resection margins is favored to reflect subacute evolution of ischemic changes initially demonstrated on 09/15/2023. Decreased vasogenic edema and absence of progressive diffusion abnormalities lessen the likelihood of infectious change at the resection site but donot exclude it. 3. Persistent fluid in the frontal sinus exenteration bed. There is increased enhancement along themargins of this fluid. Infection not excluded by MRI. 4. Increased soft tissue thickening and edema at the presumed incision site, which could reflect infection in the appropriate clinical context. 5. No findings specific for residual tumor. CT Head 10/01/23: 1. Redemonstrated postoperative changes from a planum sphenoidale meningioma resection. Postoperative changes are evaluated to overall better effect on recent brain MRI, and appear overall unchanged. 2. No superimposed acute intracranial abnormality elsewhere. LABS: Hemoglobin Date Value Ref Range Status 10/01/2023 12.0 12.0 - 15.5 g/dL Final Normal: 12-17 Sodium Date Value Ref Range Status 10/01/2023 137 136 - 145 mmol/L Final INR Date Value Ref Range Status 09/14/2023 1.0 0.9 - 1.1 Final Platelets Date Value Ref Range Status 10/01/2023 245 150 - 450 x10(9)/L Final * Guillermina Navarro RN - 10/02/2023 5:34 AM CDT Pain meds given around the clock for stated pain in head and face. Meds helping with pain. Pt sleptin between cares. Remains alert and orientedx4. * Tr Carmichael MD - 10/02/2023 12:07 AM CDT Brief cross cover note Notified to certify CXR for PICC use. Xray read shows mid SVC, confirmed on my read as well. Okay to use for tonight/hospital. It is in a large vessel and risk of clot is low, but risk would be lower if the PICC was further towards distal SVC/atrial junction. Defer to day team/ID if they want replacement. Tr Carmichael MD [facility] * Rosalina Hannah MD - 10/01/2023 9:28 PM CDT [facility] Infectious Disease Progress Note (MD) Subjective: Headache has been bothering her a lot More inside the head around the sinus area, the facial pain has been improving Feels like it's a achy pain, has been taking a lot of pain medications without much relief No fevers or chills, but started having some nausea No neck stiffness or photophobia Vital signs: Patient Vitals for the past 24 hrs: BP Temp Temp src Pulse Resp SpO2 10/01/232030 110/57 98.8 ??F (37.1 ??C) Oral 63 16 93 % 10/01/231999 104/54 -- -- 63 -- -- 10/01/23 1930 102/48 -- -- 70 17 -- 10/01/23 1900 116/66 -- -- 64 18 95 % 10/01/23 1850 120/71 100 ??F (37.8 ??C) Oral 62 20 96 % 10/01/23 1552 105/67 98.3 ??F (36.8 ??C) Oral (!) 59 16 94 % 10/01/23 0803 100/50 97.9 ??F (36.6 ??C) Oral 61 16 93 % 09/30/23 2350 95/60 98.1 ??F (36.7 ??C) Oral (!) 58 16 97 % Physical Exam: GEN - NAD, sitting comfortably HEENT - ertyhema with signfiicant crusting in between eye brown and slightly over the nose, erythema extends to cheeks and chin, decreased swelling overall and less sensitivity on palpation Neck supple, PERRLA Respiratory - symmetric chest rise Abdomen - soft, nt, nd Musculoskeletal - ROM normal of all extremities Psych - normal mood Neuro - no focal deficits noted, normal speech, conversive and interactive Labs/Studies: Recent Labs 09/29/23 0444 10/01/23 0724 SODIUM 137 137 K 3.9 3.7 CHLORIDE 107 106 BUN 12 9 CREATININE 0.76 0.67 GLUCOSE 92 119* CA 8.9 8.8 ANIONGAP 5* 7 Hemoglobin Date Value Ref Range Status 10/01/2023 12.0 12.0 - 15.5 g/dL Final 09/29/2023 11.1 (L) 12.0 - 15.5 g/dL Final 09/28/2023 12.0 12.0 - 15.5 g/dL Final WBC Date Value Ref Range Status 10/01/2023 10.2 3.5 - 10.5 x10(9)/L Final 09/29/2023 9.8 3.5 - 10.5 x10(9)/L Final 09/28/2023 10.4 3.5 - 10.5 x10(9)/L Final Platelets Date Value Ref Range Status 10/01/2023 245 150 - 450 x10(9)/L Final AST (SGOT) Date Value Ref Range Status 09/20/2023 10 10 - 40 U/L Final ALT (SGPT) Date Value Ref Range Status 09/20/2023 28 <=55 U/L Final Bilirubin, Total Date Value Ref Range Status 09/20/2023 0.2 0.2 - 1.2 mg/dL Final Microbiology: Imaging personally reviewed: Assessment: Ruthann Rosas is a 58 y.o. female with recent eyebrow craniotomy and meningioma resection 2 weeks prior to admission presenting with drainage from incision site along with redness and swelling along incision for 2 days. Patient was seen in neurosurgery clinic on 09/26 and started on Keflex. Shecontinued to have drainage and swelling incision and family recommended that she go to the ED. Patient went to [facility] and then transferred to [facility] for further evaluation and management. At [facility], patient was started on vancomycin and Zosyn. Patient had mild leukocytosis to 11.2 on admission (of note, has been on vanco and zosyn from OSH),CRP 6, improving currently. Afebrile. MRI brain significant for post op changes, increased enhancement along resection margins, subacute evolution of ischemic changes initially seen 09/15/23 imaging. Decreased vasogenic edema. Persistent fluid in frontal sinus bed. Increased enhancement along margins of this fluid. Increased soft tissuethickening and edema at presumed incision site. MSSA/MRSA pre-op culture negative. MRI without any osseus involvement. At risk for resistant organisms considering recent surgery but patient's skin lesions classic of impetigo and started on skin and would narrow antibiotics and monitor clinicla improvement. Most likely impetigo is her presentation and now slight improvement in her symptoms. Repeat MRSA this admission is negative. Has been having ongoing headache and with MRI findings significant for possible extension of the infection into deeper structures - Decreased vasogenic edema and absence of pr ogressive diffusion abnormalities lessen the likelihood of infectious change at the resection site but do not exclude it. . Also has persistent fluid in frontal sinus, will likely favor a longer course of IV antibiotics Patient is having persistent headaches of unclear etiology, question meningitis and extension of infection into CSF as etiology. Currently on appropriate antibiotics, question viral etiology. CT headrepeated without much improvement. Recommendations: - continue Ceftriaxone 2g IV q12 - added Valacyclovir for additional hsv/vzv coverage - considered LP to assess for other etiology of her headache, per neurosurgery, doesn't recommend LP at this time - favor at least 4 weeks of IV antibiotics - ID will continue to follow Billing based on: Complexity Counseling/coordination of care done, which included reviewing EPIC notes, labs, imaging, vitals, and discussing plan of care with the patient and nursing staff. Discussed with primary team. Rosalina Hannah MD Infectious Disease Please call for further questions or concerns * Ashwini Pantoja RN - 10/01/2023 8:13 PM CDT Alert/oriented x4. Independent in room. Continues to complain of 3-7/10 headache and facial pain, medicated with scheduled tylenol and prn oxy, robaxin and vistaril around the clock with some relief stated on reassessment. LP completed this evening. PICC will be placed tonight per VAS RN. Continuesto report intermittent nausea, prn zofran and compazine given this shift with relief stated. Care hours [id number] * Yu Yo PA-C - 10/01/2023 2:28 PM CDT Neurosurgery Progress Note [facility] Date of service: 10/01/2023 Assessment 58 year old female who is 2 [...] go to the ED. She went to [facility] as she was there visiting a loved one. She transferred to [facility] for further evaluation and management Plan: - Neurosurgery primary - Hospital medicine consulted on admission, appreciate their assistance - ID consulted, suspect impetigo, switched to cefazolin, certainly appreciate their assistance - Do not recommend CSF sample at this time - General cares, q4hr neuro checks - No plans for neurosurgical intervention at this time - Multimodal pain control - scheduled tylenol, prn robaxin/vistaril/tramadol/oxycodone, avoiding IVnarcotics as pt is 2 weeks out from surgery and can cause rebound headaches - Regular diet, bowel regimen - OOB as able, will consult PT/OT if needed - SCDs in bed, liyahx 40mg daily - Dispo pending clinical course Patient was seen and discussed with Dr Munguia, who agrees with the above stated plan Yu Yo PA-C 10/01/2023, 2:28 PM Neurosurgery Subjective: Patient reports feeling improved this morning. Objective: Vitals - BP 100/50 (BP Cuff Size: Regular) Pulse 61 Temp 97.9 ??F (36.6 ??C) (Oral) Resp 16 Ht 5' 5(1.651 m) Wt 77.8 kg (171 lb 8 oz) SpO2 93% BMI 28.54 kg/m?? Temp (24hrs), Av.1 ??F (36.7 ??C), Min:97.9 ??F (36.6 ??C), Max:98.3 ??F (36.8 ??C) Physical Exam - Alertness: Alert/oriented x 3, following commands General: in no acute distress Respiratory: Breathing unlabored Neuro: EOMI, face symmetric, tongue midline, hearing and speech intact Strength: 5/5 BUE/BLE Sensation: SILT Skin: Eyebrow incision with yellow colored crust noted in middle of incision. Eyes with minimal swelling this am. Forehead, cheeks, and chin with erythema, improved. Imaging: (all below imaging studies were reviewed independently) MR Brain 09/28/23 IMPRESSION: 1. 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 2. Increased enhancement along the resection margins is favored to reflect subacute evolution of ischemic changes initially demonstrated on 09/15/2023. Decreased vasogenic edema and absence of progressive diffusion abnormalities lessen the likelihood of infectious change at the resection site but donot exclude it. 3. Persistent fluid in the frontal sinus exenteration bed. There is increased enhancement along themargins of this fluid. Infection not excluded by MRI. 4. Increased soft tissue thickening and edema at the presumed incision site, which could reflect infection in the appropriate clinical context. 5. No findings specific for residual tumor. LABS: Hemoglobin Date Value Ref Range Status 10/01/2023 12.0 12.0 - 15.5 g/dL Final Normal: 12-17 Sodium Date Value Ref Range Status 10/01/2023 137 136 - 145 mmol/L Final INR Date Value Ref Range Status 09/14/2023 1.0 0.9 - 1.1 Final Platelets Date Value Ref Range Status 10/01/2023 245 150 - 450 x10(9)/L Final * Lubna Sommer PA-C - 10/01/2023 10:14 AM CDT [facility] Medicine Progress Note Date of Service: 10/01/2023 Subjective: Feeling fair, better than yesterday. Pain significantly improved, albeit not resolved. headache significantly improved. Ongoing nausea. Denies nausea with pain medications after her last surgery. No CP/SOB/F/C Objective: BP 100/50 (BP Cuff Size: Regular) Pulse 61 Temp 97.9 ??F (36.6 ??C) (Oral) Resp 16 Ht 5' 5(1.651 m) Wt 77.8 kg (171 lb 8 oz) SpO2 93% BMI 28.54 kg/m?? General Appearance: 58 y.o. female in NAD sitting in bed. HEENT: Moist mucous membranes. Pupils are round and sclera anicteric. Respiratory: Regular respirations on RA Clear to auscultation bilaterally, no wheezing Cardiovascular: Regular rate and rhythm. No murmurs. No peripheral edema. Musculoskeletal: calves are soft and non-tender. Neurologic: A&O, speech is clear. Skin: erythema over her forehead, nose, bilateral max and chin-continues to improve daily. Crustingthick between eyebrows and L nasolabial fold. No weeping blisters. Labs: Lab Results Component Value Date/Time CRP 2.2 (H) 10/01/2023 07:24 AM CRP 2.6 (H) 09/29/2023 04:44 AM CRP 2.9 (H) 09/28/2023 05:07 PM Lab Results Component Value Date/Time WBC 9.8 09/29/2023 04:44 AM WBC 10.4 09/28/2023 05:07 PM WBC 11.2 (H) 09/27/2023 01:44 PM Assessment and Plan: Ruthann Rosas is a 58 y.o. old female with a history of meningioma s/p eyebrown craniotomy 09/13with asymptomatic postoperative bradycardia who is readmitted to [facility] with draining surgicalwound and facial erythema and edema. Concern for surgical incision infx Facial Impetigo with bilateral periorbital erythema and edema Presenting sx, wound drainage, erythema, edema, headache. Mild leukocytosis and elevated CRP. MRI brain completed on admission with edema/soft tissue thickening at incision site and fluid in frontal sinus - challenging to say if postop edema/fluid vs infection Periorbital edema significantly improved today, erythema present but less pronounced -Infection prevention-dc isolation after on iv abx >24hr -NSG following -no indication for surgical intervention -does not think CSF sampling would be beneficial, no concern for deeper infection -ID following -MRSA swab negative -started on zosyn/vanco transitioned to cefazolin 09/29/2023, changed to ceftriaxone 09/30/2023 -plan for 4wk course of ceftriaxone, place PICC today -crp stable -inflammatory markers are down trending -pain management: scheduled tylenol, robaxin, hydroxyzine, and oxycodone. D/w patient plan to wean down once infx improving. Worsening MURILLO this afternoon Nausea persists Now complaining of light sensitivity. 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 Dc tele 09/30/2023 with no further episodes of bradycardia NSG, ID, nursing notes reviewed, labs reviewed and pertinent labs for monitoring ordered. Discussedmanagement of infection and clinical plan of care with interdisciplinary team including bedside nurse, NSG and ID DVT Prophylaxis: enoxaparin FEN: regular diet. No IVFs Code status: Full Dispo: anticipate dc Tuesday if patient continues to improve with IV abx on discharge. Lubna Sommer PA-C [facility] * Guillermina Navarro RN - 10/01/2023 7:04 AM CDT Pt reports pain from 5-6/10. Medicated with oxy, robaxin, vistaril and scheduled tylenol around theclock. Pain is improving. Bed alarm for overnight. Pt remains alert and orientedx4. Up SBA to independent. * Ashwini Pantoja RN - 09/30/2023 5:50 PM CDT Patient alert/oriented x4, frustrated and very tearful at start of shift, complaining of uncontrolled facial pain and headache. Scheduled and prn pain meds given as able with minimal relief. Collaborated with attending medicine PA, prn pain meds adjusted with tolerable relief stated by end of shift, rating pain 3/10. Pt reports that despite still having a headache and left sided facial pain, she feels like a whole new person after today. Still complaining of some intermittent nausea, relief stated with prn zofran. Pt son visiting at bedside at end of shift. Per [place] in infection prevention, contact precautions for impetigo needed for 24h post abx initiation, orders placed this afternoon. [facility]. Practitioner Notified Note Name of Practitioner notified: NS Time of Practitioner notification: 8:09 AM Reason: [id number]. Gabby Rosas. Noted half IV abx not administered during previous dose, per pt, previous dose not fully administered either FYI Response: Document and make ID aware as well Name of Practitioner notified: NS Time of Practitioner notification: 2:18 PM Reason: [id number]. Gabby Rosas. Per pt, takes chantix 1mg BID and trazodone 200mg qhs, asking for orders. Thanks! Response: Order for Trazodone 200mg HS placed * Lubna Sommer PA-C - 09/30/2023 3:47 PM CDT [facility] Medicine Progress Note Date of Service: 09/30/2023 Subjective: Frustrated with her care and uncontrolled pain. Was taking oxycodone 10mg q6 along with robaxin qidand hydroxyzine q6 prior to admission for pain control and feels worse in the hospital with new infection. Pain reported over her entire face associated with headache. Mild nausea without vomiting. Headache without photophobia, vision changes, or nuchal rigidity. Pt also reports sore throat. No cp/sob/f/c. Fortunately, swelling is somewhat better today. Objective: BP 124/79 (BP Cuff Size: Regular) Pulse 70 Temp 98.7 ??F (37.1 ??C) (Oral) Resp 16 Ht 5' 5(1.651 m) Wt 77.8 kg (171 lb 8 oz) SpO2 95% BMI 28.54 kg/m?? General Appearance: 58 y.o. female in NAD sitting in bed. HEENT: Moist mucous membranes. Pupils are round and sclera anicteric. No nuchal rigidity. Respiratory: Regular respirations on RA Clear to auscultation bilaterally, no wheezing Cardiovascular: Regular rate and rhythm. No murmurs. No peripheral edema. Abdomen: Soft, Non-tender and non-distended. Musculoskeletal: calves are soft and non-tender. Neurologic: A&O, speech is clear. Follows commands. Moves all extremities. Skin: erythema over her forehead, nose, bilateral max and chin. Crusting thick between eyebrows andL nasolabial fold. No weeping blisters. Labs: Lab Results Component Value Date/Time CRP 2.6 (H) 09/29/2023 04:44 AM CRP 2.9 (H) 09/28/2023 05:07 PM CRP 6.0 (H) 09/27/2023 01:44 PM Lab Results Component Value Date/Time WBC 9.8 09/29/2023 04:44 AM WBC 10.4 09/28/2023 05:07 PM WBC 11.2 (H) 09/27/2023 01:44 PM Assessment and Plan: Ruthann Rosas is a 58 y.o. old female with a history of meningioma s/p eyebrown craniotomy 09/13with asymptomatic postoperative bradycardia who is readmitted to [facility] with draining surgicalwound and facial erythema and edema. Concern for surgical incision infx Facial Impetigo with bilateral periorbital erythema and edema Presenting sx, wound drainage, erythema, edema, headache. Mild leukocytosis and elevated CRP. MRI brain completed on admission with edema/soft tissue thickening at incision site and fluid in frontal sinus - challenging to say if postop edema/fluid vs infection Periorbital edema significantly improved today, erythema present but less pronounced -Infection prevention- -contact isolation for another 24hr on IV abx -NSG following -no indication for surgical intervention -does not think CSF sampling would be beneficial, no concern for deeper infection -ID following -MRSA swab negative -started on zosyn/vanco transitioned to cefazolin 09/29/2023, changed to ceftriaxone 09/30/2023 -inflammatory markers are down trending -pain management: scheduled tylenol, robaxin, hydroxyzine, and oxycodone. D/w patient plan to wean down once infx improving. 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 Dc tele with no further episodes of bradycardia NSG, ID, nursing notes reviewed, labs reviewed and pertinent labs for monitoring ordered. Discussedmanagement of infection and clinical plan of care with interdisciplinary team including bedside nurse, NSG and ID Medicine will assume primary care of this patient. Lubna Sommer PA-C [facility] * Rosalina Hannah MD - 09/30/2023 3:01 PM CDT [facility] Infectious Disease Progress Note () Subjective: feels much better today Pain is more controlled Glad she is under medicine team currently Face is crusting over more, much less swollen Tolerating antibiotics well No nausea, vomiting, abd pain or diarrhea Vital signs: Patient Vitals for the past 24 hrs: BP Temp Temp src Pulse Resp SpO2 09/30/23 1200 -- -- -- 70 -- -- 09/30/23 1100 -- -- -- 60 -- -- 09/30/23 1003 -- -- -- 73 -- -- 09/30/23 0900 -- -- -- 67 -- -- 09/30/23 0807 124/79 98.7 ??F (37.1 ??C) Oral 69 16 95 % 09/30/23 0800 -- -- -- 62 -- -- 09/30/23 0700 -- -- -- 61 -- -- 09/30/23 0600 -- -- -- (!) 59 -- -- 09/30/23 0500 -- -- -- (!) 55 -- -- 09/30/23 0400 -- -- -- 65 -- -- 09/30/23 0300 -- -- -- 70 -- -- 09/30/23 0200 -- -- -- 69 -- -- 09/30/23 0100 -- -- -- 70 -- -- 09/29/23 2343 113/69 98.5 ??F (36.9 ??C) Oral 70 15 94 % 09/29/231999 122/70 -- -- 76 -- -- 09/29/23 1700 (!) 145/78 98.6 ??F (37 ??C) Oral 62 17 99 % Physical Exam: GEN - NAD, sitting comfortably HEENT - ertyhema with signfiicant crusting in between eye brown and slightly over the nose, erythema extends to cheeks and chin, decreased swelling overall and less sensitivity on palpation Respiratory - symmetric chest rise Abdomen - soft, nt, nd Musculoskeletal - ROM normal of all extremities Psych - normal mood Labs/Studies: Recent Labs 09/28/23 1707 09/29/23 0444 SODIUM 139 137 K 3.9 3.9 CHLORIDE 108 107 BUN 11 12 CREATININE 0.62 0.76 GLUCOSE 92 92 CA 9.0 8.9 ANIONGAP 7 5* Hemoglobin Date Value Ref Range Status 09/29/2023 11.1 (L) 12.0 - 15.5 g/dL Final 09/28/2023 12.0 12.0 - 15.5 g/dL Final 09/27/2023 11.8 (L) 12.0 - 15.5 g/dL Final WBC Date Value Ref Range Status 09/29/2023 9.8 3.5 - 10.5 x10(9)/L Final 09/28/2023 10.4 3.5 - 10.5 x10(9)/L Final 09/27/2023 11.2 (H) 3.5 - 10.5 x10(9)/L Final Platelets Date Value Ref Range Status 09/29/2023 227 150 - 450 x10(9)/L Final AST (SGOT) Date Value Ref Range Status 09/20/2023 10 10 - 40 U/L Final ALT (SGPT) Date Value Ref Range Status 09/20/2023 28 <=55 U/L Final Bilirubin, Total Date Value Ref Range Status 09/20/2023 0.2 0.2 - 1.2 mg/dL Final Microbiology: Imaging personally reviewed: Assessment: Ruthann Rosas is a 58 y.o. female with recent eyebrow craniotomy and meningioma resection 2 weeks prior to admission presenting with drainage from incision site along with redness and swelling along incision for 2 days. Patient was seen in neurosurgery clinic on 09/26 and started on Keflex. Shecontinued to have drainage and swelling incision and family recommended that she go to the ED. Patient went to [facility] and then transferred to [facility] for further evaluation and management. At [facility], patient was started on vancomycin and Zosyn. Patient had mild leukocytosis to 11.2 on admission (of note, has been on vanco and zosyn from OSH),CRP 6, improving currently. Afebrile. MRI brain significant for post op changes, increased enhancement along resection margins, subacute evolution of ischemic changes initially seen 09/15/23 imaging. Decreased vasogenic edema. Persistent fluid in frontal sinus bed. Increased enhancement along margins of this fluid. Increased soft tissuethickening and edema at presumed incision site. MSSA/MRSA pre-op culture negative. MRI without any osseus involvement. At risk for resistant organisms considering recent surgery but patient's skin lesions classic of impetigo and started on skin and would narrow antibiotics and monitor clinicla improvement. Most likely impetigo is her presentation and now slight improvement in her symptoms. Repeat MRSA this admission is negative. Has been having ongoing headache and with MRI findings significant for possible extension of the infection into deeper structures - Decreased vasogenic edema and absence of pr ogressive diffusion abnormalities lessen the likelihood of infectious change at the resection site but do not exclude it. . Also has persistent fluid in frontal sinus, will likely favor a longer course of IV antibiotics Recommendations: - broadened to Ceftriaxone 2g IV q12h given nausea and persistent headache - consider CSF testing if clinically able, given headache still present, nausea although no photophobia or neck pain question early meningitis? - favor at least 4 weeks of IV antibiotics - plan for PICC line placement, patient in agreement - ID will continue to follow Billing based on: Complexity Counseling/coordination of care done, which included reviewing EPIC notes, labs, imaging, vitals, and discussing plan of care with the patient and nursing staff. Discussed with primary team. Rosalina Hannah MD Infectious Disease Please call for further questions or concerns * Hina Nielson PA-C - 09/30/2023 7:26 AM CDT Neurosurgery Progress Note [facility] Date of service: 09/30/2023 Assessment 58 year old female who is 2 [...] go to the ED. She went to [facility] as she was there visiting a loved one. She transferred to [facility] for further evaluation and management Plan: - Neurosurgery primary - Hospital medicine consulted on admission, appreciate their assistance - ID consulted, suspect impetigo, switched to cefazolin, certainly appreciate their assistance - General cares, q4hr neuro checks - No plans for neurosurgical intervention at this time - Multimodal pain control - scheduled tylenol, prn robaxin/vistaril/tramadol/oxycodone, avoiding IVnarcotics as pt is 2 weeks out from surgery and can cause rebound headaches - Regular diet, bowel regimen - OOB as able, will consult PT/OT if needed - SCDs in bed, lovenox 40mg daily - Dispo pending clinical course Patient was seen and discussed with Dr Munguia, who agrees with the above stated plan Hina Nielson PA-C 09/30/2023, 7:27 AM Neurosurgery Subjective: No acute neurosurgical events overnight though RN reports half of IV antibiotics not fully administered this am. Patient reporting an ongoing headache this morning in addition to some nausea. Denies new changes in vision, dizziness, numbness, tingling, weakness. Objective: Vitals - BP 113/69 (BP Cuff Size: Regular) Pulse (!) 59 Temp 98.5 ??F (36.9 ??C) (Oral) Resp 15 Ht 5' 5 (1.651 m) Wt 77.8 kg (171 lb 8 oz) SpO2 94% BMI 28.54 kg/m?? Temp (24hrs), Av.5 ??F (36.9 ??C), Min:98.3 ??F (36.8 ??C), Max:98.6 ??F (37 ??C) Physical Exam - Alertness: Alert/oriented x 3, following commands General: in no acute distress Respiratory: Breathing unlabored Neuro: EOMI, face symmetric, tongue midline, hearing and speech intact Strength: 5/5 BUE/BLE Sensation: SILT Skin: Eyebrow incision with yellow colored crust noted in middle of incision. Eyes with swelling this am. Forehead, cheeks, and chin with erythema. Imaging: (all below imaging studies were reviewed independently) MR Brain 09/28/23 IMPRESSION: 1. 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 2. Increased enhancement along the resection margins is favored to reflect subacute evolution of ischemic changes initially demonstrated on 09/15/2023. Decreased vasogenic edema and absence of progressive diffusion abnormalities lessen the likelihood of infectious change at the resection site but donot exclude it. 3. Persistent fluid in the frontal sinus exenteration bed. There is increased enhancement along themargins of this fluid. Infection not excluded by MRI. 4. Increased soft tissue thickening and edema at the presumed incision site, which could reflect infection in the appropriate clinical context. 5. No findings specific for residual tumor. LABS: Hemoglobin Date Value Ref Range Status 09/29/2023 11.1 (L) 12.0 - 15.5 g/dL Final Normal: 12-17 Sodium Date Value Ref Range Status 09/29/2023 137 136 - 145 mmol/L Final INR Date Value Ref Range Status 09/14/2023 1.0 0.9 - 1.1 Final Platelets Date Value Ref Range Status 09/29/2023 227 150 - 450 x10(9)/L Final * Urbano Koch RN - 09/29/2023 7:38 PM CDT Neurosurgery Night Staff Paged: Pt reports increased facial pain. Reports current medication regime is not helping. Requesting to be seen by a physician. * Hina Nielson PA-C - 09/29/2023 8:05 AM CDT Neurosurgery Progress Note [facility] Date of service: 09/29/2023 Assessment 58 year old female who is 2 weeks post op from eyebrow craniotomy and meningioma resection with . She began having drainage from incision site along with redness and swelling along incision2 days ago. She was seen in NSGY clinic on 09/26 and started on Keflex. She was instructed to seek care should symptoms worsen. She had increased drainage and swelling from incision today and family recommended that she go to the ED. She went to [facility] as she was there visiting a loved one. She transferred to [facility] for further evaluation and management Plan: - Neurosurgery primary - Hospital medicine consulted on admission, ID consulted this am to assist with antibiotic regimen - General cares, q4hr neuro checks - No plans for neurosurgical intervention at this time - Facial rash with impetigo like appearance - currently on vanc/zosyn and bactroban ointment, ID consulted to further assist - Multimodal pain control - scheduled tylenol, prn robaxin/vistaril/tramadol, avoiding IV narcoticsas pt is 2 weeks out from surgery and can cause rebound headaches - Regular diet, bowel regimen - OOB as able, will consult PT/OT if needed - SCDs in bed, lovenox 40mg daily - Dispo pending clinical course Patient was seen and discussed with Dr Munguia, who agrees with the above stated plan Hina Nielson PA-C 09/29/2023, 8:05 AM Neurosurgery Subjective: No acute neurosurgical events overnight. Patient reporting a headache this morning. Denies changes in vision, dizziness, nausea, vomiting, numbness, tingling, weakness. Discussed pain regimen as wellas plan to consult ID to assist with management. Objective: Vitals - BP 105/63 (BP Cuff Size: Regular) Pulse 74 Temp 98.2 ??F (36.8 ??C) (Oral) Resp 18 Ht 5' 5(1.651 m) Wt 77.8 kg (171 lb 8 oz) SpO2 97% BMI 28.54 kg/m?? Temp (24hrs), Av.2 ??F (36.8 ??C), Min:98 ??F (36.7 ??C), Max:98.4 ??F (36.9 ??C) Physical Exam - Alertness: Alert/oriented x 3, following commands, naming/repeating intact General: in no acute distress Respiratory: Breathing unlabored Neuro: EOMI, face symmetric, tongue midline, hearing and speech intact Strength: 5/5 BUE/BLE Sensation: SILT Skin: Eyebrow incision with yellow colored crust noted in middle of incision. Forehead, cheeks, andchin with erythema. Imaging: (all below imaging studies were reviewed independently) MR Brain 09/28/23 IMPRESSION: 1. 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 2. Increased enhancement along the resection margins is favored to reflect subacute evolution of ischemic changes initially demonstrated on 09/15/2023. Decreased vasogenic edema and absence of progressive diffusion abnormalities lessen the likelihood of infectious change at the resection site but donot exclude it. 3. Persistent fluid in the frontal sinus exenteration bed. There is increased enhancement along themargins of this fluid. Infection not excluded by MRI. 4. Increased soft tissue thickening and edema at the presumed incision site, which could reflect infection in the appropriate clinical context. 5. No findings specific for residual tumor. LABS: Hemoglobin Date Value Ref Range Status 09/29/2023 11.1 (L) 12.0 - 15.5 g/dL Final Normal: 12-17 Sodium Date Value Ref Range Status 09/29/2023 137 136 - 145 mmol/L Final INR Date Value Ref Range Status 09/14/2023 1.0 0.9 - 1.1 Final Platelets Date Value Ref Range Status 09/29/2023 227 150 - 450 x10(9)/L Final documented in this encounter Procedure Notes * Juwan Cai MD - 10/04/2023 3:14 PM CDT NEUROINTERVENTIONAL SURGERY [facility] Physician: Juwan Cai MD Procedure: Epidural blood patch Medications: none Contrast: 1 cc Omni 180 Fluoroscopy time: 0.7 minutes Air kerma: 33.4 mGy Estimated blood loss: Minimal Complications: None evident Preliminary findings: (Please see dictation for full detail) - 20 ml peripheral blood instilled into dorsal epidural space at L3-4 Plan: - Routine post procedure monitoring. - Bedrest for 1 hours. Report completed by Juwan Cai MD Neurointerventional Surgery [facility] * Asa Jack RN - 10/01/2023 11:08 PM CDT Images from the original note were not included. [facility] Vascular chainstitch hemmersoftware applications specialist Note Patient Name: Ruthann Rosas Date of : 1965 Consent: Patient/family was informed of alternatives, benefits, risks, to PICC placement procedure prior to consent. Consent was signed and placed in chart. Ht Readings from Last 1 Encounters: 09/28/23 5' 5 (1.651 m) PICC and Midline Assessment GFR result 25 or greater?: Yes Positive culture: No Has the patient required Interventional Radiology in the past?: No Verify Patient Name, , and PICC order at the bedside: Yes 2nd RN Verification of Patient Name, , and PICC order at the bedside: Julieta Lezama=Maik AREVALO Primary indication for line: Other (see comments) (Difficult venous access) Does patient have allergies to any of the standard protocol items used for insertion?: No Has patient had vascular access device in the past?: No Does the patient have a vascular access device present?: Yes- PIV Does the patient have a history of blood clots in chest or arms?: No Restrictions or additional information to be considered for placement:: None Consent has been signed by patient/POA/patient medical device sales representative?: Yes Procedure: A 4 fr. SINGLE lumen PICC LINE was placed in the patient's RIGHT arm in the BRACHIAL vessel with ultrasound guidance, utilizing sterile technique on the SECOND attempt.Total catheter length: 37 cm, with 0 cm external catheter. No complications were encountered during the procedure. A sterile antimicrobial disc, catheter stabilization device and transparent adhesive dressing was placed over the site. The patient will have this dressing changed by the Vascular Access Service in 7 day(s). Limb restriction wristband placed on patient at the time of PICC insertion. Patient Lines/Drains/Airways Status Active PICC Line Name Placement date Placement time Site Days Additional Info PICC Single Lumen 10/01/23 Right Basilic Vein 10/01/232054 Basilic Vein less than 1 Pre-existing: No Inserted By?: Nurse Catheter Time Out Checklist Completed: Yes Indication: Antibiotics Condition: Elective Consent: Informed Written Patient Identification: Verified Food Safety Specialist: Bard Lot #: [id number] Size (Fr): 4 Fr Length (cm): 37 cm Vessel Size (mm): 6 mm Orientation: Right Site Prep: ChloraPrep Local Anesthetic: Injectable;Lidocaine 1% Initial Exposed Catheter (cm): 0 cm Insertion attempts: 2 Patient Tolerance: Tolerated well New / Exchanged: New Follow-up: SINGLE LUMEN PICC LINE WAS PLACED ON THE RIGHT BRACHIAL VEIN. PRIMARY RNGUILLERMINA WAS INFORMED [id number] TO WAIT FOR X-RAY CONFIRMATION FOR PLACEMENT. VASCULAR ACCESS SERVICE Addendum: Reading Physician Reading Date Result Priority Frank Stokes MD [phone] 10/01/2023 Narrative & Impression EXAM: XR PORTABLE CHEST 1 VIEW LOCATION: [facility] DATE: 10/01/2023 INDICATION: PICC placement, LINE/TUBE PLACEMENT COMPARISON: None. IMPRESSION: Heart size at upper limits normal for portable technique. Right chest port catheter tipat mid SVC level. Probable calcified left central granuloma. No visible pneumothorax or pleural effusion. * Kev Rojas III, MD - 10/01/2023 4:55 PM CDT [facility] Neurointerventional Surgery Radiologist: Kev Rojas MD Procedure: fluoro guided lumbar puncture Fluoroscopy Time: .4 minutes Air Kerma: 7.8 mGy Estimated Blood Loss: trace Complications: none Preliminary Findings: (See dictation for full detail) LP at L4-5 Opening pressure 18 cm H2O 13 ml clear CSF obtained Plan: Post procedure monitoring. Bedrest for one hour Samples to lab Report completed by Kev Rojas MD [facility] Emergency pager: [phone] Office: [phone] documented in this encounter Consult Notes * Elsa Rosas RN - 10/04/2023 12:01 PM CDTAssociated Order(s): WOUND/FOURCHETTE SEWER CONSULT Images from the original note were not included. [facility] Wound Progress Note Evaluate for: impetigo Consulted by: Practitioner Diagnosis: Encounter Diagnoses Name Primary? Postoperative infection, unspecified type, initial encounter Yes Wound infection Surgical site infection Patient reports: The patient is agreeable to my assessment. Relevant patient history: 58 year old female who is 2 weeks post op from eyebrow craniotomy and meningioma resection with . She began having drainage from incision site along with redness and swelling along incision2 days prior to presentation. Assessment: Patient with thick layered impetigo crusts to face. Sutured surgical incision is beneath this. Signs of infection: none to skin/wound assessed Patient consult included visit and visual assessment: Yes/No: Yes Pressure Related Wound: No Treatment Provided: Orders placed Inpatient Plan and orders: Inpatient plan: Bedside RN/RT to provide dressing changes as ordered. Bedside RN/RT to follow wound care and/or skin care order(s). Wound team has completed consult, no follow up planned. Please re-consult as needed. Support Surface: IsoFlex mattress (low air loss pump in use) Wound Care/Skin Care orders(s): Wound Care 3XDAILY Discontinue Standing Count: Until Specified Authorizing Provider: Lexis Simpson PA-C References: [facility] Skin Assessment and Prevention of Skin Breakdown Procedure Confucianism Skin Integrity Maintenance - Pressure Injury Prevention Confucianism Skin Care Standards Reference Tool [facility] Moisture Wicking Reference Question Answer Comment Type of wound impetigo Location of wound face Instructions for Irrigation/Cleaning Clean face/crusts with Vashe and gauze, attempting to remove all loose debris. Topical treatments Apply a thick layer of Aquaphor to crusts Dressing None Discharge Plan and orders: Discharge plan: Continue to follow inpatient plan. Once crusts have been removed and change to topical antibiotic. Additional Consults: Neurosurgery and medicine team at bedside and agree with the plan of care. Communication: I spoke with the patient, primary RN, medicine MD, and neurosurgery team regarding plan of care andentered orders. Please reorder the Wound/missile facilities repairer Consult for questions, concerns or deterioration. Wound/Ostomy nurse is available every day (excluding holidays) between [phone]. PATRICIA Robles, RN, CWON * Eliud Blount MD - 10/03/2023 10:40 AM CDTAssociated Order(s): PAIN MANAGEMENT CONSULT Images from the original note were not included. [facility] Inpatient Pain Management Consultation DATE OF CONSULT: 10/03/2023 REASON FOR PAIN CONSULTATION: Ruthann Rosas is a 58 y.o. female I am seeing in consultation at the request of Lexis Simpson PA-C for evaluation and recommendations for her inpatient pain management. CHIEF PAIN COMPLAINT: headache ASSESSMENT: Admission for surgical incision infection Positional headache Meningioma resection eyebrown cranitotomy 09/1309/14/23 TREATMENT RECOMMENDATIONS/PLAN: Gabapentin 200mg TID I talked to IR - if the headache is not improving, we can consult them for a blood patch. If the patient wants to pursue this option, we would have to put in an IR consult. At this point, I would give some time to see if gabapentin helps and would try to slowly wean off oxycodone. Addendum: 14:30 - I spoke with the patient and she would like to proceed with the blood patch. She does feel there is a strong positional nature to the headache. She understands there is no guaranteethe blood patch works. Risks/ side effects reviewed. Case was discussed with neurosurgery as well. ASSESSMENT AND RECOMMENDATIONS DISCUSSED WITH: IR, Lexis Simpson, neurosurgery Thank you for consulting the Inpatient Pain Management Service. Please contact me with any questions or concerns. Eliud Blount M.D. [facility] Pain Management [phone] HISTORY OF PRESENT ILLNESS: Per Chart Review: 58 year old female who is 2 weeks post op from eyebrow craniotomy and meningioma resection with Dr. Munguia. She began having drainage from incision site along with redness and swelling along incision 2 days ago. She was seen in NSGY clinic on 09/26 and started on Keflex. She was instructed to seek care should symptoms worsen. She had increased drainage and swelling from incision today and family recommended that she go to the ED. She went to [facility] as she was there visiting a lovedone. She transferred to [facility] for further evaluation and management. INPATIENT MEDICATIONS PERTINENT TO THIS CONSULT: Tylenol Pepcid Atarax 50mg q 6 hours PRN Keepra 500mg BID Robaxin 500mg QID PRN Oxycodone 10mg q 4 hours PRN Miralax 17g daily Chantix Previous Home Pain Medications: Tylenol Pepcid Atarax 50mg q 6 hours PRN Motrin Keppra Robaxin Chantix Trazodone 200mg QHS HYDRAULIC TESTER database review: PAIN HISTORY: Location: head - frontal region Duration has had a headache since her craniotomy; however, lately she feels that the headache has gotten worse and has become a positional headache. Pain intensity is 10/10 sitting up. 2/10 laying flat. Quality of the pain is throbbing, aching Aggravating factors include sitting up Relieving factors include laying flat Sleeping: OK Denies constipation DIAGNOSTIC TESTS: CT head 10/01/23 EXAM: CT HEAD WO IV CONT LOCATION: [facility] DATE: 10/01/2023 INDICATION: Acute headache COMPARISON: 09/28/2023 brain MRI. TECHNIQUE: Routine CT Head without IV contrast. Multiplanar reformats. Dose reduction techniques were used. 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 With this, there is a redemonstrated heterogeneous extra-axial fluid collection deep to the craniotomy measuring [...] postoperative changes to the midline inferior frontal calvarium.Small amount of soft tissue swelling in the overlying frontal scalp. IMPRESSION: 1. Redemonstrated postoperative changes from a planum sphenoidale meningioma resection. Postoperative changes are evaluated to overall better effect on recent brain MRI, and appear overall unchanged. 2. No superimposed acute intracranial abnormality elsewhere. CURRENT MEDICATIONS: Current Facility-Administered Medications Ordered in [facility] Medication Dose Route Frequency Provider Last Rate Last Admin acetaminophen (TYLENOL) tablet 325 mg 325 mg Oral Q6H Candelaria Johnson APRN CARPET INSPECTOR 325 mg at 10/03/23 0615 bisacodyl (DULCOLAX) rectal suppository 10 mg 10 mg Rectal DAILY PRN April Holt cefTRIAXone (ROCEPHIN) 2 g in sodium chloride 0.9 % 100 mL IVPB 2 g Intravenous Q12H(NS) Rosalina Hannah MD Stopped at 10/02/23 2345 [Held by provider in Manage Orders] enoxaparin (LOVENOX) prefilled syringe 40 mg 40 mg [id number] Hina Nielson PA-C 40 mg at 10/01/23 1233 famotidine (PEPCID) tablet 20 mg 20 mg Oral BID before meals Sussy Villeda APRN, CARPET INSPECTOR 20 mg at 10/03/23 0616 hydrOXYzine pamoate (VISTARIL) capsule 50 mg 50 mg Oral Q6H PRN Sussy Villeda APRN, CARPET INSPECTOR 50 mg at 10/03/23 0853 levETIRAcetam (KEPPRA) tablet 500 mg 500 mg Oral BID Lubna Sommer PA-C 500 mg at 10/03/23 0852 methocarbamol (ROBAXIN) tablet 500 mg 500 mg Oral QID PRN Sussy Villeda APRN, CARPET INSPECTOR 500 mg at 10/03/23 0852 ondansetron (ZOFRAN-ODT) disintegrating tablet 4 mg 4 mg Oral Q6H PRN Nicole Moss MD 4 mg at 10/02/23 0014 And ondansetron (ZOFRAN) injection 4 mg 4 mg Intravenous Q6H PRN Nicole Moss MD 4 mg at 09/30/23 1547 And prochlorperazine (COMPAZINE) injection 5 mg 5 mg Intravenous Q6H PRN Nicole Moss MD 5 mg at 10/01/23 1245 And metoclopramide (REGLAN) injection 5 mg 5 mg Intravenous Q6H PRN Nicole Moss MD mupirocin (BACTROBAN) 2 % ointment Topical TID Hina Nielson PA-C Given at 10/03/23 0853 naloxone (NARCAN) injection 0.2 mg 0.2 mg Intravenous PRN per Parameters Sussy Villeda APRN,CARPET INSPECTOR oxyCODONE (ROXICODONE) immediate release tablet 10 mg 10 mg Oral Q4H PRN Candelaria Johnson APRNCARPET INSPECTOR 10 mg at 10/03/23 0741 polyethylene glycol (MIRALAX) oral powder 17 g 17 g Oral DAILY PRN Lubna Sommer PA-C 17 g at 10/01/23 1044 senna (SENOKOT) tablet 2 Tablet 2 Tablet Oral BID April Holt A 2 Tablet at 10/02/23 0900 sodium chloride 0.9% infusion 1,000 mL Intravenous Once Lexis Simpson PA-C sodium chloride 0.9% injection 10 mL 10 mL Intravenous Q24H Lubna Sommer PA-C 10 mL at 10/02/23 2315 sodium chloride 0.9% injection 10 mL 10 mL Intravenous PRN per Parameters Lubna Sommer PA-C sodium chloride 0.9% injection 20 mL 20 mL Intravenous PRN per Parameters Lubna Sommer PA-C traZODone (DESYREL) tablet 200 mg 200 mg Oral At Bedtime Hina Nielson PA-C 200 mg at 10/02/232047 varenicline (CHANTIX) tablet 1 mg 1 mg Oral BID with meals Lubna Sommer PA-C 1 mg at 852 Current Outpatient Medications Ordered in [facility] Medication Sig Dispense Refill alteplase (CATHFLO ACTIVASE) 2 MG injection Administer 2 mg intravenously as needed (Line Occlusion) for up to 2 doses. Instill 2 mg into the occluded catheter, after 30 minutes dwell time assess, ifnot functional reassess again in 90 minutes. If still occluded may repeat 2 mg dose and reassess after 30 minutes. Dispense quantity sufficient for treatment course. Use per institutional policy. cefTRIAXone (ROCEPHIN) 2 g injection Administer 2,000 mg (2 g) intravenously every 12 hours for 23 days. Reconstitute and/or dilute per home infusion pharmacy/facility compounding standards or use premade bag if available. This order should end on 10/26/23 , date inclusive. heparin PF, Pork, 100 UNIT/ML injection Administer 5 mL (500 Units) intravenously as needed (line patency). Dispense quantity sufficient for treatment course. Use per institutional policy. sodium chloride 0.9% injection Administer 10 mL intravenously as needed (For Line patency. Before and After Medications or Lab draw.). Dispense quantity sufficient for treatment course. Use per institutional policy. LABORATORY VALUES: Last Basic Metabolic Panel: No components found for: CR ALLERGIES: No Known Allergies PAST MEDICAL AND PSYCHIATRIC HISTORY: Past Medical History: Diagnosis Date Dermatitis Eyelid #*LW 3 01/28/2006 Multiparity Grand w Preg #*LW 2 08/27/2003 Tobacco Abuse #*LW 1 08/04/2002 Varicella PAST SURGICAL HISTORY: has a past surgical history that includes rotator cuff repair (Right) and PICC (Right, 10/01/2023). FAMILY HISTORY: family history includes Cancer in her mother; Cancer, Breast in her maternal grandmother; Cancer, Ovary in her paternal grandmother; Dementia in her mother. There is no history of Cancer, Colon, Diethylstilbestrol Exposure, or Cancer, Endometrial. HEALTH & LIFESTYLE PRACTICES: Tobacco: reports that she has been smoking cigarettes. She started smoking about 44 years ago. She has a 40.2 pack-year smoking history. She has never used smokeless tobacco. Alcohol: reports no history of alcohol use. Illicit drugs: reports no history of drug use. PHYSICAL EXAMINATION: VITAL SIGNS: Blood pressure 108/62, pulse (!) 57, temperature 98.1 ??F (36.7 ??C), temperature source Oral, resp. rate 18, height 5' 5 (1.651 m), weight 77.8 kg (171 lb 8 oz), SpO2 93%, not currently . GEN There are not signs of sedation or somnolence, in no visible distress secondary to pain HEAD: NCAT - surgical scar on forehead EYES: There is not scleral icterus Neck: Supple without lymphadenopathy CV: RRR Resp: respirations even Abd: soft NT/ND Musc: no joint effusions Neuro: AAO to person, place, and date. No facial asymmetry Skin: No visible rashes or bruises on my exam. Extremities: No cyanosis, clubbing, or edema Psychological exam: Mood pleasant. Affect full Speech non-pressured. Insight - appropriate. TIME SPENT: 55 minutes including [id number] time counseling her about her diagnosis and treatment options, and coordinating care with the primary team. DECISION-MAKING: The level of decision-making in this case is high/complex due to the complexity ofmedical problems, acute/chronic pain, opioid analgesia issues, and behavioral factors. * Rosalina Hannah MD - 09/29/2023 11:39 AM CDTAssociated Order(s): INFECTIOUS DISEASE CONSULT Infectious Diseases Consultation Note Date of service: 09/29/23 Requesting Provider: Svitlana Bazan Reason for consult: s/p eyebrow crani 09/13 now with concern for infection near incision and throughout face, eval and assist with management HPI: Ruthann Rosas is a 58 y.o. female with recent eyebrow craniotomy and meningioma resection 2 weeks prior to admission presenting with drainage from incision site along with redness and swelling along incision for 2 days. Patient was seen in neurosurgery clinic on 09/26 and started on Keflex. She continued to have drainage and swelling incision and family recommended that she go to the ED.Patient went to [facility] and then transferred to [facility] for further evaluationand management. At [facility], patient was started on vancomycin and Zosyn. Patient reports that she's in a lot of pain. Her face is hurting her a lot. She feels that the throbbing has decreased however. No trauma that she noticed that triggered. The keflex she took didn't help her symptoms at all. No other new symptoms besides the facial pain. No headache, vision changes,gait issues. 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 HENT: Head: Comments: Erythema throughout her entire face Swelling under her eyes Cardiovascular: Rate and Rhythm: Normal rate. Pulses: Normal pulses. Pulmonary: Effort: Pulmonary effort is normal. Abdominal: General: There is no distension. Palpations: Abdomen is soft. Tenderness: There is no abdominal tenderness. Musculoskeletal: Right lower leg: No edema. Left lower leg: No edema. Neurological: Mental Status: She is alert and oriented to person, place, and time. Psychiatric: Mood and Affect: Mood normal. Labs: pertinent labs personally reviewed Last CBC w/differential result: Lab Results Component Value Date/Time WBC 9.8 09/29/2023 04:44 AM RBC 3.94 09/29/2023 04:44 AM HGB 11.1 (L) 09/29/2023 04:44 AM HCT 34.8 (L) 09/29/2023 04:44 AM MCV 88.3 09/29/2023 04:44 AM MCH 28.2 09/29/2023 04:44 AM MCHC 31.9 09/29/2023 04:44 AM PLTS 227 09/29/2023 04:44 AM RDW 14.0 09/29/2023 04:44 AM PMN 6.6 09/27/2023 01:44 PM LYMA 2.9 09/27/2023 01:44 PM MONOA 1.1 (H) 09/27/2023 01:44 PM EOSA 0.3 09/27/2023 01:44 PM BASA 0.1 09/27/2023 01:44 PM Serum creatinine: 0.76 mg/dL 09/29/23 0444 Estimated creatinine clearance: 82.2 mL/min Microbiology: No results found for this or any previous visit. No results found for this or any previous visit. No results found for this or any previous visit. Imaging: below imaging personally reviewed MR Brain W/WO IV Cont Result Date: 09/28/2023 EXAM: MR BRAIN W/WO IV CONT LOCATION: [facility] DATE: 09/28/2023 INDICATION: Status post bifrontal [...] residual extra-axial fluid along the anteromedial margins ofthe frontal lobes. Vasogenic edema in the right [...] TISSUES: Unremarkable marrow signal. Postoperative changes as above.Greater thickening and enhancement of the soft tissues at the presumed incision site than on 09/15/2023. Limited images of the upper cervical spine demonstrate no acute abnormality. ORBITS: No abnormal ity accounting for technique. SINUSES/MASTOIDS: Frontal sinus exenteration changes with fluid persisting in the surgical defect. There is slightly increased enhancement along these frontal sinus surgical margins. The mastoid air cells are unremarkable in signal. IMPRESSION: 1. Postoperative changesof eyebrow craniotomy and frontal sinus exenteration for planum sphenoidale meningioma resection. 2. Increased enhancement along the resection margins is favored to reflect subacute evolution of ischemic changes initially demonstrated on 09/15/2023. Decreased vasogenic edema and absence of progressive diffusion abnormalities lessen the likelihood of infectious change at the resection site but do not exclude it. 3. Persistent fluid in the frontal sinus exenteration bed. There is increased enhancement along the margins of this fluid. Infection not excluded by MRI. 4. Increased soft tissue thickening and edema at the presumed incision site, which could reflect infection in the appropriate clinic al context. 5. No findings specific for residual tumor. MR Brain W/WO IV Cont Result Date: 09/15/2023 EXAM: MR BRAIN W/WO IV CONT LOCATION: [facility] DATE: 09/15/2023 INDICATION: S/p eyebrow crani for meningioma resection, eval post-op COMPARISON: MRI brain September 13, 2023. CONTRAST: GADOBUTROL 1MMOL/ML IV SOLN 7.5 mL TECHNIQUE: Routine multiplanar multisequence head MRI without and with intravenous contrast. 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 Thin rind of enhancement marginates resection cavity, likely reactive. No evidence for residual tumor. Small amount of cytotoxic edema in the adjacent right greater than leftfrontal lobes. Vasogenic edema in the right frontal lobe is unchanged. Small volume postoperative pneumocephalus. Mild diffuse pachymeningeal enhancement, likely postoperative. No additional diffusion restricting abnormalities. No hydrocephalus. Major intracranial flow voids are preserved. Presumedsurgical packing within the midline frontal calvarium. Otherwise calvarium is unremarkable. Small amount of right scalp edema. IMPRESSION: 1. Postoperative changes of planum sphenoidale meningioma resection. No evidence for residual tumor. 2. Small amount of cytotoxic edema within the right greaterthan left frontal lobes adjacent to the resection cavity. CT Head WO IV Cont Stealth Result Date: 09/14/2023 EXAM: CT HEAD WO IV CONT [...] mucosal disease. No middle ear or mastoid e ffusion. BONES/SOFT TISSUES: No acute abnormality. IMPRESSION: 1. Unchanged planum sphenoidale meningioma. MR Brain W/WO IV Cont Map Stealth Result Date: 09/14/2023 EXAM: MR BRAIN WITHOUT AND WITH IV CONTRAST MAP STEALTH LOCATION: [facility] DATE: 09/13/2023INDICATION: Plan for eyebrow craniotomy for resection of [...] age. No evidence for hydrocephalus. Major intracranial flow-voids appear pre served. The sella is unremarkable for technique. The [...] mass effect or right frontal lobe edema. Assessment: Ruthann Rosas is a 58 y.o. female with recent eyebrow craniotomy and meningioma resection 2 weeks prior to admission presenting with drainage from incision site along with redness and swelling along incision for 2 days. Patient was seen in neurosurgery clinic on 09/26 and started on Keflex. Shecontinued to have drainage and swelling incision and family recommended that she go to the ED. Patient went to [facility] and then transferred to [facility] for further evaluation and management. At [facility], patient was started on vancomycin and Zosyn. Patient had mild leukocytosis to 11.2 on admission (of note, has been on vanco and zosyn from OSH),CRP 6, improving currently. Afebrile. MRI brain significant for post op changes, increased enhancement along resection margins, subacute evolution of ischemic changes initially seen 09/15/23 imaging. Decreased vasogenic edema. Persistent fluid in frontal sinus bed. Increased enhancement along margins of this fluid. Increased soft tissuethickening and edema at presumed incision site. MSSA/MRSA pre-op culture negative. MRI without any osseus involvement. At risk for resistant organisms considering recent surgery but patient's skin lesions classic of impetigo and started on skin and would narrow antibiotics and monitor clinicla improvement. Most likely impetigo is her presentation and now slight improvement in her symptoms. Repeat MRSA this admission is negative Recommendations: - discontinue vancomycin given no mrsa - narrow to Cefazolin to target mssa/strep which are most likely the organisms causing impetigo - ID will continue to follow Billing based on: Complexity Counseling/coordination of care done, which included reviewing EPIC notes, labs, imaging, vitals, and discussing plan of care with the patient and nursing staff. Rosalina Hannah MD Infectious Diseases Please call for further questions or concerns * Lubna Sommer PA-C - 09/29/2023 11:22 AM CDTAssociated Order(s): INTERNAL MEDICINE CONSULT [facility] Medicine Consultation Note Date of service: 09/29/2023 I was asked by Svitlana Bazan, PAROLE OFFICER, CARPET INSPECTOR of NSG to provide medical recommendations of this patient in regards to recent sinus bradycardia and medical co-management. History of present illness: Ruthann Rosas is a 58 y.o. old female with a history of meningioma s/p eyebrown craniotomy 09/13with asymptomatic postoperative bradycardia who is readmitted to [facility] with draining surgicalwound and facial erythema and edema. Patient reports that at time of discharge 09/21 she was feelingwell with no facial edema and tolerable pain. 4-5 days ago she began to have swelling over her faceand headache. She also noted some drainage from surgical site. No fevers, but felt warm. No vision changes. Pt was [place] [facility] [place] for follow up and prescribed cephalexin and mupirocin. Patient came to ED 09/28/2023 with no improvement in symptoms. Upon patient's recent discharge, she was sent with holter monitor for ongoing assessment of sinus bradycardia that appeared to be new since surgery. This was first noted postoperatively and was asymptomatic. EP cardiology consulted who recommended echo and holter monitor. Echocardiogram did not reveal HCOM or other cause for bradycardia. Patient denies any lightheadedness, dizziness, chest pain or palpitations since her discharge. Today she is complaining of pain over her face and persistent swelling. Review of Systems Remainder of 10pt ROS is negative Past Medical, surgical, social, family history reviewed Current outpatient medications: Prior to Admission Medications Prescriptions Last Dose Informant Patient Reported? Taking? Calcium Carbonate (CALCIUM 500 OR) 09/27/2023 Yes Yes Sig: Take 1 Tablet by mouth daily. Cholecalciferol (VITAMIN D-3 OR) Yes No Garlic (ODOR FREE GARLIC) 100 MG 09/27/2023 No Yes Sig: Take 1 Tablet (100 mg) by mouth daily. Do not start before September 28, 2023. Multiple Vitamins-Minerals (MULTIVITAMIN OR) 09/27/2023 No Yes Sig: Take 1 tablet by mouth daily (every 24 hours). [place]-3 Fatty Acids (FISH OIL) 1000 MG capsule 09/27/2023 No Yes Sig: Take 1 Capsule (1,000 mg) by mouth daily. Do not start before September 28, 2023. acetaminophen (TYLENOL) 325 MG tablet As Directed-PRN No Yes Sig: Take 1-2 Tablets (325-650 mg) by mouth every 6 hours as needed for Pain. acyclovir (ZOVIRAX) 400 MG tablet As Directed-PRN No Yes Sig: Take 1 Tablet (400 mg) by mouth three times a day as needed. ascorbic acid (AKA VITAMIN C) 500 MG tablet 09/27/2023 No Yes Sig: Take 2 Tablets (1,000 mg) by mouth daily. cephalexin (KEFLEX) 500 MG capsule 09/28/2023 No Yes Sig: Take 1 Capsule (500 mg) by mouth 4 times a day. cholecalciferol (VITAMIND3) 50 MCG (2000 UT) tablet 09/27/2023 Yes Yes Sig: Take 2 Tablets (4,000 Units) by mouth daily. dexAMETHasone (DECADRON) 2 MG tablet No No Sig: Take 1 tablet (2 mg) by mouth twice daily on 09/21/23. Then, take 1 tablet (2 mg) daily on 09/22/23, then stop. famotidine (PEPCID) 20 MG tablet 09/24/2023 No Yes Sig: Take 1 Tablet (20 mg) by mouth two times a day before meals. hydrOXYzine pamoate (VISTARIL) 50 MG capsule 09/28/2023 No Yes Sig: Take 1 Capsule (50 mg) by mouth every 6 hours as needed for Pain. Patient taking differently: Take 1 Capsule (50 mg) by mouth every 6 hours. ibuprofen (MOTRIN) 600 MG tablet As Directed-PRN No Yes Sig: Take 1 Tablet (600 mg) by mouth every 6 hours as needed for Pain. Do not start before August. levETIRAcetam (KEPPRA) 500 MG tablet 09/28/2023 at am No Yes Sig: Take 1 Tablet (500 mg) by mouth two times a day for 7 days. methocarbamol (ROBAXIN) 500 MG tablet 09/28/2023 No Yes Sig: Take 1 Tablet (500 mg) by mouth 4 times daily as needed. Patient taking differently: Take 1 Tablet (500 mg) by mouth 4 times a day. mupirocin (BACTROBAN) 2 % ointment 09/28/2023 No Yes Sig: Apply topically three times a day. oxyCODONE (ROXICODONE) 5 MG immediate release tablet 09/28/2023 at 0800 No Yes Sig: Take 1-2 Tablets (5-10 mg) by mouth every 6 hours as needed for Pain. Patient taking differently: Take 2 Tablets (10 mg) by mouth every 6 hours. sennosides-docusate sodium (SENOKOT S) 8.6-50 MG per tablet 09/28/2023 at am No Yes Sig: Take 2 Tablets by mouth two times daily as needed for Constipation. Indications: Constipation Patient taking differently: Take 2 Tablets by mouth two times a day. Indications: Constipation traZODone (DESYREL) 100 MG tablet 09/27/2023 No Yes Sig: Take 2 Tablets (200 mg) by mouth daily at bedtime. varenicline (CHANTIX) 1 MG tablet unsure No Yes Sig: Take 1 Tablet (1 mg) by mouth two times a day. Take after eating with a full glass of water.NOTE:Dispense as maintenance for refills only. Facility-Administered Medications: None Allergies: No Known Allergies Physical Examination: BP 101/55 (BP Cuff Size: Regular) Pulse 72 Temp 98.3 ??F (36.8 ??C) (Oral) Resp 17 Ht 5' 5(1.651 m) Wt 77.8 kg (171 lb 8 oz) SpO2 96% BMI 28.54 kg/m?? General Appearance: 58 y.o. female in NAD sitting up in chair. HEENT: Moist mucous membranes. Pupils are round and sclera anicteric and without erythema. Erythemaover forehead down nose and nasolabial fold with crusted drainage. Respiratory: Regular respirations on RA. Clear to auscultation bilaterally, no wheezing Cardiovascular: Regular rate and rhythm. No murmur. No edema. Abdomen: Soft, Non-tender, non-distended. Musculoskeletal: Warm and well perfused. Skin: warm, dry Neurologic: A&O, speech is clear. Labs: Lab Results Component Value Date/Time CRP 2.6 (H) 09/29/2023 04:44 AM CRP 2.9 (H) 09/28/2023 05:07 PM CRP 6.0 (H) 09/27/2023 01:44 PM Last Chem10 results: Lab Results Component Value Date/Time SODIUM 137 09/29/2023 04:44 AM K 3.9 09/29/2023 04:44 AM CHLORIDE 107 09/29/2023 04:44 AM BICARB 25 09/29/2023 04:44 AM BUN 12 09/29/2023 04:44 AM CREATININE 0.76 09/29/2023 04:44 AM GLUCOSE 92 09/29/2023 04:44 AM CA 8.9 09/29/2023 04:44 AM ANIONGAP 5 (L) 09/29/2023 04:44 AM MG 2.1 09/21/2023 06:29 AM PHOS 3.2 09/19/2023 06:28 AM Lab Results Component Value Date/Time WBC 9.8 09/29/2023 04:44 AM WBC 10.4 09/28/2023 05:07 PM WBC 11.2 (H) 09/27/2023 01:44 PM MRI brain: IMPRESSION: 1. 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 2. Increased enhancement along the resection margins is favored to reflect subacute evolution of ischemic changes initially demonstrated on 09/15/2023. Decreased vasogenic edema and absence of progressive diffusion abnormalities lessen the likelihood of infectious change at the resection site but donot exclude it. 3. Persistent fluid in the frontal sinus exenteration bed. There is increased enhancement along themargins of this fluid. Infection not excluded by MRI. 4. Increased soft tissue thickening and edema at the presumed incision site, which could reflect infection in the appropriate clinical context. 5. No findings specific for residual tumor. Assessment and Plan: Ruthann Rosas is a 58 y.o. old female with a history of meningioma s/p eyebrown craniotomy 09/13with asymptomatic postoperative bradycardia who is readmitted to [facility] with draining surgicalwound and facial erythema and edema. Concern for surgical incision infx Bilateral periorbital erythema and edema Presenting sx, wound drainage, erythema, edema, headache. Mild leukocytosis and elevated CRP. MRI as above. 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 -tele restarted on admission. Brief HR 40-50 while sleeping, no other arrhythmia. Okay to dc from medicine perspective. -echo and EP cardiology consulted during her last stay. Sent home with event monitor -no further work up Thank you for this consultation. Medicine will continue to follow. Lubna Sommer PA-C [facility] Medicine documented in this encounter OR Notes * H&P - Sussy Villeda, PAROLE OFFICER, CARPET INSPECTOR - 09/28/2023 5:36 PM CDT Neurosurgery H&P [facility] Date of Service: 09/28/2023 Staff: Dr. Villarreal Chief Complaint Patient presents with Infection, Wound ASSESSMENT 58 year old female who is 2 weeks post op from eyebrow craniotomy and meningioma resection with . She began having drainage from incision site along with redness and swelling along incision2 days ago. She was seen in NSGY clinic on 09/26 and started on Keflex. She was instructed to seek care should symptoms worsen. She had increased drainage and swelling from incision today and family recommended that she go to the ED. She went to [facility] as she was there visiting a loved one. She transferred to [facility] for further evaluation and management. PLAN Admit to general cares on 10S Medicine team consult ID consult in AM Vancomycin/Zosyn as started at OSH MRI Brain with and without contrast Neuro checks and VS Q 4 hours Activity as tolerated Regular diet MURILLO: oxycodone 5-10 mg q 4 hours prn, IV dilaudid 0.2 mg q 2 hours prn breakthrough pain, tylenol 1000 mg Q 8 hours, methocarbamol 500 mg QID, hydroxyzine 25 mg q 6 hours prn. SCDs in bed Bowel regimen while on opiates SOURAV Beavers is a pleasant 58 y.o. female with recent history of eyebrow craniotomy and resection of meningioma with Dr. Munguia on 09/13. Patient had uneventful recovery course, but began to develop rashand swelling with purulent drainage along her eyebrow incision line 2 days ago. Patient reports that she was seen in the Neurosurgical clinic yesterday for 2 week incision check and assessment yesterday, she was given Keflex by Dr. Munguia and lab work was sent to evaluate for infection. She was instructed to seek further medical care should symptoms worsen. Today while visiting a family member in [facility], she was told by her sibling to seek medical care as he noted the incision to be more swollen and 'angry' looking. She presented to the ED in [place] and had CT Head obtained. She was transferred to [facility] for further evaluation and management. Patient denies other illness in the past 2 weeks, denies n/v, diarrhea, pain with urination, shortness of breath or chest pain. States she has felt well with the exception of significant headache that began within the past 2-3 days, she also notes fatigue and generalized body aches. 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 Patient reports that she has not experienced further episodes of bradycardia and her blood pressure has been normal for her when she has checked it at home. 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 Tobacco Use Smoking [...] No Sexual activity: Not Currently control/protection: None Other Topics Concern Bike Helmet Yes [place] Yes Exercise No Guns in home No Seat Belt Yes Special Diet No Weight Concern Yes Social History Narrative Not on file Social Determinants of Health Financial Resource Strain: Not on file Food Insecurity: No Food Insecurity (09/14/2023) Hunger Vital Sign Worried About Running Out of Food in the Last Year: Never true Ran Out of Food in the Last Year: Never true Transportation Needs: No Transportation Needs (09/14/2023) PRAPARE - Transportation Lack of Transportation (Medical): No Lack of Transportation (Non-Medical): No Intimate Partner Violence: Unknown (09/14/2023) Humiliation, Afraid, Rape, and Kick questionnaire Fear of Current or Ex-Partner: Not on file Emotionally Abused: No Physically Abused: No Sexually Abused: No Housing Stability: Low Risk (09/14/2023) Housing Stability Vital Sign Unable to Pay for Housing in the Last Year: No Number of Places Lived in the Last Year: 1 Unstable Housing in the Last Year: No Family History Problem Relation Age of Onset Cancer, Breast Maternal Grandmother br ca age?? after menopause Cancer Mother Dementia Mother Cancer, Ovary Paternal Grandmother Cancer, Colon Negative Family History Diethylstilbestrol Exposure Negative Family History Cancer, Endometrial Negative Family History Current Hospital Medications reviewed in Epic ROS See HPI for pertinent positives. Denies chest pain, SOB, difficulty breathing, f/c/s. PHYSICAL EXAM BP 113/60 Pulse 63 Temp 98.4 ??F (36.9 ??C) (Oral) SpO2 98% General: in no acute distress. Alert and oriented x 3 HEENT: head normocephalic and atraumatic, trachea midline Lungs: non labored respirations CV: skin is warm Psych: appropriate affect and mood Skin: erythematous area along eyebrow incision, crusted serous drainage with purulence in some places. Swelling surrounding eyes bilaterally. NEUROLOGICAL: Mental Status: awake, alert, attentive, oriented x3, interactive, speech fluent, naming and repeating intact, comprehension and memory intact, following complex commands Cranial Nerves: VFF to confrontation, PERRL 2 mm, EOMI, facial sensation intact V1-3 bilaterally, face symmetric w/o weakness, hearing intact to conversation, uvula elevates symmetric, speech fluent,tongue protrudes midline, shrugs shoulders Motor Strength: Normal bulk and tone. No pronator drift Upper extremities: Right Left Deltoids: C5 5/5 5/5 Biceps: C6 5/5 5/5 Triceps: C7 5/5 5/5 Wrist flexion: C7 5/5 5/5 Wrist extension: C6 5/5 5/5 Hand intrinsics: T1 5/5 5/5 Instructional Coordinator strength: C8 5/5 5/5 Lower extremities: Right Left Hip flexion: L1,L2,L3 5/5 5/5 Add hips: L2L3 5/5 5/5 Knee flexion: S1 5/5 5/5 Knee extension: L3,L4 5/5 5/5 Dorsiflexion: L4,L5 5/5 5/5 Plantarflexion: S1 5/5 5/5 EHL: L5 5/5 5/5 Sensation: Intact to light touch throughout and bilateral UE, LE Reflexes: DTRs: L UE Triceps-(C7) 2+, Biceps-(C5) 2+, Brachioradialis-(C6) 2+ R UE Triceps-(C7) 2+, Biceps-(C5) 2+, Brachioradialis-(C6) 2+ L LE Patellar-(L4) 2+, Achilles-(S1) 2+ R LE Patellar-(L4) 2+, Achilles-(S1) 2+ Imaging Studies: (all below imaging studies were reviewed independently) Pending Pertinent Labs: Hospital Encounter on 09/28/23 (from the past 24 hour(s)) Complete Blood Count -no Diff Result Value Ref Range WBC 10.4 3.5 - 10.5 x10(9)/L RBC 4.25 3.90 - 5.03 x10(12)/L Hemoglobin 12.0 12.0 - 15.5 g/dL HCT 37.6 34.9 - 44.5 % MCV 88.5 80.0 - 100.0 fL MCH 28.2 27.6 - 33.3 pg MCHC 31.9 31.5 - 35.2 g/dL RDW 14.0 11.9 - 15.5 % Platelets 233 150 - 450 x10(9)/L Automated NRBC 0 <=0 /100 WBC CRP 6.0 The patient is in agreement with plan and has no further questions at this time. The patient was seen with Dr. Munguia, who personally reviewed the imaging and is in agreement with this plan. Total time spent with the patient was 75 minutes of which more than 50% was used in counseling time, including discussion of prognosis and various surgical and non-surgical treatment options and associated risks. Sussy Villeda, PAROLE OFFICER, CARPET INSPECTOR Neurosurgery documented in this encounter ED Notes * Lucia Culver PA-C - 09/28/2023 4:20 PM CDT Images from the original note were not included. [facility] Emergency Medicine Visit Note Chief Complaint Patient presents with Infection, Wound HPI: Patient presents for evaluation of concern for postop forehead infection following neurosurgical procedure performed on 09/13. Patient was concerned that she was developed rash and since yesterday a subjective fever and increased pain to forehead. She was seen at [place] today and a CT scan was performed which was concerning for a forehead fluid collection, so she was sent to the ED. She was started on pre-hospital antibiotics. Vitals: 09/28/23 1628 BP: 113/60 Pulse: 63 Temp: 98.4 ??F (36.9 ??C) SpO2: 98% PE: Gen: resting comfortably HEENT: post-op wound has erythematous rash with honey-crust lesions as below, rash extending down to chin, EOMI, PERRL, no oropharyngeal lesions, neck supple Chest: equal chest rise, breathing comfortably, lungs clear to auscultation Neuro: interacting appropriately, GCS 15, cranial nerves intact, 5/5 strength and SILT in all extremities Extremities: no lower extremity edema, tenderness MDM: This is a 58-year-old who is 2 weeks status post frontal meningioma removal who presents for concern for postop wound infection as above. She arrives hemodynamically stable, afebrile, well-appearing.She was seen at [facility] ED pre-hospital and reportedly had outpatient CT which was concerning for a postop fluid collection. Unfortunately I am unable to review these images. She reportedly also received Zosyn and vancomycin pre-hospital. On physical exam, I am concerned for what appears to be impetigo affecting her postoperative wound.No fluid expressed from surgical site, but given reported pre-hospital imaging, there is concern for deep tissue infection as well. We will plan to page Neurosurgery immediately, and patient will likely require admission and advanced imaging. Staff physician aware of case. Preliminary orders: Orders Placed This Encounter Basic Metabolic Panel Complete Blood Count -no Diff C-Reactive Protein MR Brain W/WO IV Cont Bed Request Inpatient HYDROmorphone (DILAUDID) injection 1 mg sodium chloride 0.9% bolus 1,000 mL piperacillin-tazobactam (ZOSYN) 4.5 g in sodium chloride 0.9 % 100 mL Extended Infusion pharmacy alert intermittent dosing Lucia Culver PA-C ED Course as of 09/28/23 173TueSep 28, 2023 164 NSG paged for consultation [JZ] 164 Dilaudid ordered for pain [JZ] 165 NSG called back & will review case, recs pending [JZ] 1734 NSG recommends admission & brain MRI, ordered [JZ] ED Course User Index [JZ] Lucia Culver PA-C Clinical Impressions as of 09/28/231734 Postoperative infection, unspecified type, initial encounter Note written using dictation software and therefore may contain errors. Message me directly with any questions related to documentation. * Sade Neal MD - 09/28/2023 2:35 PM CDT Referred from [facility] ED by Dr Marsh for Post op infection. Background/plan: Dr Munguia did tumor removal one week ago now with incisional redness adn swelling.Started on Abx yesterday. CT today shows fluid collection with mass effect. Will start vanc and zosyn Means of arrival: private vehicle Call back: none documented in this encounter Plan of Treatment Upcoming Encounters Date Type Department Care Team (Late st Contact Info) Description 10/12/2023 9:00 AM CDT Appointment [facility] [address] [place] [address] Svitlana Olmos MD [address] [place] [address] Hospital Discharge Follow-up 10/20/2023 10:30 AM CDT Appointment [facility] Neurosurgery/Ortho Spine [address] [facility] [place] [address] 12/06/2023 10:20 AM CDT Appointment [facility] Neurosurgery/Ortho Spine [address] [address] Jg Munguia MD [address] [place] [address] 01/03/2024 11:20 AM CONCESSION SUPERVISOR Appointment [facility] [address] [place] [address] [facility] [address] [place] [address] Pending Results Name Type Priority Associated Diagnoses Date /Time Spinal Fluid & Anaerobic Culture Panel Microbiology Routine 10/01/2023 6:01 PM CDT AFB Culture Microbiology Routine 10/01/2023 6:01 PM CDT Fungus Culture, Miscellaneous Microbiology Routine 10/01/2023 6:01 PM CDT Anaerobic Culture Microbiology Routine 09/30 6:01 PM CDT AFB Culture Microbiology Routine 10/01/2023 6:01 PM CDT Scheduled Orders Name Type Priority Associated Diagnoses Orde r Schedule IR Lumbar Puncture Diagnostic Imaging New Routine once for 1 Occurrences starting 10/01/2023 until 10/01/2023 Spinal Fluid & Anaerobic Culture Panel Microbiology Routine Once today start ing now for 1 Occurrences starting 10/01/2023 until 10/01/2023 AFB Culture Microbiology Routine Once today starting now for 1 Occurrences starting 10/01/2023 until 10/01/2023 Complete Blood Count -W/Diff Lab Routine Wound infection Surgical site infection Weekly for 3 Occurrences starting 10/03/2023 until 10/02/2024 BUN Lab Routine Wound infection Surgical site infection Weekly for 3 Occurrences starting 10/03/2023 until 10/02/2024 Creatinine / GFR Lab Routine Wound infection Surgical site infection Weekly for 3 Occurrences starting 10/03/2023 until 10/02/2024 Alkaline Phosphatase, Total Lab Routine Wound infection Surgical site infection Weekly for 3 Occurrences starting 10/03/2023 until 10/02/2024 ALT (SGPT) Lab Routine Wound infection Surgical site infection Weekly for 3 Occurrences starting 10/03/2023 until 10/02/2024 AST Lab Routine Wound infection Surgical site infection Weekly for 3 Occurrences starting 10/03/2023 until 10/02/2024 Bilirubin, Total Lab Routine Wound infection Surgical site infection Weekly for 3 Occurrences starting 10/03/2023 until 10/02/2024 IR Injection Epidural Blood Patch Imaging New Routine once for 1 Occurrences starting 10/03/2023 until 10/03/2023 IR Imaging consult Schedule placeholder (do not remove) Imaging New Routine once for 1 Occurrences starting 10/04/2023 until 10/04/2023 Scheduled Referrals Name Type Priority Associated Diagnoses Orde r Schedule Infectious Disease Consult-Adults Referral Routine Wound infection Surgical site infection Ordered: 10/03/2023 Home Care Referral Routine Postoperative infection, unspecified type, initial encounter Wound infection Ordered: 10/03/2023 Neurosurgery Follow-Up Referral Routine Postoperative infection, unspecified type, initial encounter Ordered: 10/05/2023 documented as of this encounter Procedures Procedure Name Priority Date/Time Associated Diagnosis Comments GLUCOSE, WHOLE BLOOD POCT Routine 10/04/2023 6:15 PM CDT IR INJECTION EPIDURAL BLOOD PATCH Routine 10/04/2023 2:29 PM CDT XR PORTABLE CHEST 1 VIEW STAT 10/01/2023 11:34 PM CDT FL LUMBAR PUNCTURE (FOR CSF) Routine 10/01/2023 6:23 PM CDT CSF MENINGITIS / ENCEPHALITIS PANEL, MOLECULAR DETECTION Routine 10/01/2023 6:01 PM CDT CEREBROSPINAL FLUID CELL COUNT Routine 10/01/2023 6:01 PM CDT CEREBROSPINAL FLUID CELL COUNT Routine 10/01/2023 6:01 PM CDT CELL COUNT WITH REFLEX TO DIFFERENTIAL, CSF Routine 10/01/2023 6:01 PM CDT CELL COUNT WITH REFLEX TO DIFFERENTIAL, CSF Routine 10/01/2023 6:01 PM CDT CEREBROSPINAL FLUID MANUAL DIFFERENTIAL Routine 10/01/2023 6:01 PM CDT SPINAL FLUID CULTURE & SMEAR Routine 10/01/2023 6:01 PM CDT FUNGUS CULTURE Routine 10/01/2023 6:01 PM CDT ANAEROBIC CULTURE Routine 10/01/2023 6:0 1 PM CDT AFB CULTURE Routine 10/01/2023 6:01 PM CDT CSF LAB ORDERS STAT 10/01/2023 6:01 PM CDT CSF, GLUCOSE Routine 10/01/2023 6:01 PM CDT CSF TOTAL PROTEIN Routine 10/01/2023 6:0 1 PM CDT IV INSERTION(LAB TO PERFORM) Routine 10/01/2023 3:[address] HEAD WO IV CONT STAT 10/01/2023 2: 19 PM CDT COMPLETE BLOOD COUNT-NO DIFF STAT 10/01/2023 1:31 PM CDT IV INSERTION(LAB TO PERFORM) STAT 10/01/2023 9:57 AM CDT BASIC METABOLIC PANEL STAT Add-On 10/01/2023 7:24 AM CDT C-REACTIVE PROTEIN Routine 10/01/2023 7: 24 AM CDT MRSA, MOLECULAR DETECTION Routine 09/29/2023 12:55 PM CDT IV INSERTION(LAB TO PERFORM) Routine 09/29/2023 4:44 AM CDT BASIC METABOLIC PANEL Routine 09/29/2023 4:44 AM CDT COMPLETE BLOOD COUNT-NO DIFF Routine 09/29/2023 4:44 AM CDT C-REACTIVE PROTEIN Routine 09/29/2023 4: 44 AM CDT MR BRAIN W/WO IV CONT STAT 09/28/2023 8:03 PM CDT BASIC METABOLIC PANEL STAT 09/28/2023 5:07 PM CDT COMPLETE BLOOD COUNT-NO DIFF STAT 09/28/2023 5:07 PM CDT C-REACTIVE PROTEIN STAT Add-On 09/28/2023 5: 07 PM CDT documented in this encounter Results * Glucose, Whole Blood POCT (10/04/2023 6:15 PM CDT) Glucose, Whole Blood 81 70 - 180 mg/dL 10/04/2023 6:16 PM CDT [facility] Performing Location RCLab [id number] 10/04/2023 6:16 PM CDT [facility] Blood 10/04/2023 6:15 PM CDT 10/04/2023 6:16 PM CDT Lexis Simpson PA-C LAB_1 Performing Organization Address City/State/[facility] Co de Phone Number [address] * IR Injection Epidural Blood Patch (10/04/2023 2:29 PM CDT) Anatomical Region Laterality Modality Spine X-Ray Angiograph y 10/04/2023 2:29 PM CDT Narrative 10/04/2023 8:01 PM CDT [facility] FLUOROSCOPICALLY GUIDED LUMBAR EPIDURAL BLOOD PATCH 10/04/2023 [...] CPT codes included for physician reference only: [id number] Procedure Note Juwan Cai MD - 10/04/2023 [facility] FLUOROSCOPICALLY GUIDED LUMBAR EPIDURAL BLOOD PATCH 10/04/2023 [...] CPT codes included for physician reference only: [id number] Chiquita Dawson PAROLE OFFICER, CARPET INSPECTOR RAD IR * XR Portable Chest 1 View (10/01/2023 11:34 PM CDT) Anatomical Region Laterality Modality Chest, Lung Computed Radiogr aphy 10/01/2023 11:3 4 PM CDT Narrative 10/01/2023 11:36 PM CDT EXAM: XR PORTABLE CHEST 1 VIEW LOCATION: [facility] DATE: 10/01/2023 INDICATION: PICC placement, LINE/TUBE PLACEMENT COMPARISON: None. IMPRESSION: Heart size at upper limits normal for portable technique. Right chest port catheter tip at mid SVC level. Probable calcified left central granuloma. No visible pneumothorax or pleural effusion. Procedure Note Frank Stokes MD - 10/01/2023 EXAM: XR PORTABLE CHEST 1 VIEW LOCATION: [facility] DATE: 10/01/2023 INDICATION: PICC placement, LINE/TUBE [...] advanced into the thecal sac at the L4-I4cyulb. An opening pressure measurement of 18 cm [...] Kev Rojas III, MD RAD [place] * Cerebrospinal Fluid Manual Differential (10/01/2023 6:01 PM CDT) [facility] Neutrophil % 1 % 10/01/2023 9:12 PM CDT [facility] Lymphocyte % 80 % 10/01/2023 9:12 PM CDT [facility] Monocyte/Macrop miguel % 19 % 10/01/2023 9:12 PM CDT [facility] CSF CEREBROSPINAL FLUID / Unknown 10/01/2023 6:01 PM CDT 10/01/2023 6:32 PM CDT Lubna Sommer PA-C LAB_1 Performing Organization Address [facility] de Phone Number [address] * Spinal Fluid Culture & Smear (10/01/2023 6:01 PM CDT) Spinal Fluid Culture & Smear No growth after 3 days 10/04/2023 9:22 PM CDT [facility] Gram Smear Cytospin Preparation: 10/04/2023 9:22 PM [facility] Gram Smear PMN's Present 10/04/2023 9:22 PM [facility] Gram Smear No Organisms Seen 10/04/2023 9:22 PM CDT [facility] CSF LUMBAR PUNCTURE / Unknown 10/01/2023 6:01 PM CDT 10/01/2023 8:07 PM CDT Lubna Sommer PA-C LAB_1 Performing Organization Address [facility] Phone Number [address] * Cerebrospinal Fluid Cell Count (10/01/2023 6:01 PM CDT) Type CSF 10/01/2023 9:28 PM CDT [facility] Source Cerebrospinal Fluid 10/01/2023 9:28 PM CDT [facility] CSF Tube Number 4 9:28 PM CDT [facility] Color Colorless Colorless 10/01/2023 9:28 PM T [facility] Appearance Clear Clear 10/01/2023 9:28 PM CDT [facility] CSF Xanthochromia Absent Absent 10/01/2023 9:28 PM T [facility] Red Blood Cells 9 /uL 9:28 PM T [facility] Comment:The reference interv al has not been established. The test result must be integrated into the clinical context for interpretation. Total Nucleated Cells 4 /uL 10/01/2023 9:28 PM CDT [facility] Comment:The reference interv al has not been established. The test result must be integrated into the clinical context for interpretation. CSF CEREBROSPINAL FLUID / Unknown 10/01/2023 6:01 PM CDT 10/01/2023 6:33 PM CDT Lubna Sommer PA-C LAB_1 Performing Organization Address [facility] Co de Phone Number [address] * Cerebrospinal Fluid Cell Count (10/01/2023 6:01 PM CDT) Type CSF 10/01/2023 9:12 PM CDT [facility] Source Cerebrospinal Fluid 10/01/2023 9:12 PM CDT [facility] CSF Tube Number 1 4 9:12 PM CDT [facility] Color Colorless Colorless 10/01/2023 9:12 PM CDT [facility] Appearance Clear Clear 10/01/2023 9:12 PM CDT [facility] CSF Xanthochromia Absent Absent 10/01/2023 9:12 PM CDT [facility] Red Blood Cells 27 /uL 4 9:12 PM CDT [facility] Comment:The reference interv al has not been established. The test result must be integrated into the clinical context for interpretation. Total Nucleated Cells 6 /uL 10/01/2023 9:12 PM CDT [facility] Comment:The reference interv al has not been established. The test result must be integrated into the clinical context for interpretation. CSF CEREBROSPINAL FLUID / Unknown 10/01/2023 6:01 PM CDT 10/01/2023 6:32 PM CDT Lubna Sommre PA-C LAB_1 Performing Organization Address [facility] Co de Phone Number [address] * CSF Meningitis / Encephalitis PCR panel (10/01/2023 6:01 PM CDT) Escherichia coli K1 Not Detected Not Detected 10/02/2023 12:03 AM CDT [facility] Haemophilus influenzae Not Detected Not Detected 10/02/2023 12:03 AM CDT [facility] Listeria monocytogenes Not Detected Not Detected 10/02/2023 12:03 AM CDT [facility] Neisseria ??meningitidis ? Not Detected Not Detected 10/02/2023 12:03 AM CDT [facility] Streptococcus agalactiae? Not Detected Not Detected 10/02/2023 12:03 AM CDT [facility] Streptococcus pneumoniae? Not Detected Not Detected 10/02/2023 12:03 AM CDT [facility] Cytomegalovirus (CMV) Not Detected Not Detected 10/02/2023 12:03 AM CDT [facility] Enterovirus?? Not Detected Not Detected 10/02/2023 12:03 AM CDT [facility] Herpes simplex virus 1 (HSV1) Not Detected Not Detected 10/02/2023 12:03 AM CDT [facility] Herpes simplex virus 2 (HSV2) Not Detected Not Detected 10/02/2023 12:03 AM CDT [facility] Human Herpes virus 6 (HHV-6) Not Detected Not Detected 10/02/2023 12:03 AM CDT [facility] Human parechovirus Not Detected Not Detected 10/02/2023 12:03 AM CDT [facility] Varicella zoster virus (VZV) Not Detected Not Detected 10/02/2023 12:03 AM CDT [facility] Cryptococcus ??neoformans/jam i Not Detected Not Detected 10/02/2023 12:03 AM CDT [facility] CSF 10/01/2023 6:01 PM CDT 10/01/2023 6:32 PM CDT [facility] - 10/02/2023 12:03 AM CDT This [...] LIMITATIONS: West Nile virus and other arboviruses (Cerritos virus, [place], Eastern or Western equine encephalitis viruses, etc) [...] separately if suspected. Lubna Sommer PA-C LAB_1 Performing Organization Address City/[facility]/ZIP Co de Phone Number [place] [phone] [address] * CSF Glucose (10/01/2023 6:01 PM CDT) Glucose, CSF 64 40 - 70 mg/dL 10/01/2023 7:29 PM CDT [facility] CSF 10/01/2023 6:01 PM CDT 10/01/2023 6:32 PM CDT Lubna Sommer PA-C LAB_1 Performing Organization Address [facility] Co de Phone Number [address] * CSF Total Protein (10/01/2023 6:01 PM CDT) Total Protein, CSF 26 15 - 45 mg/dL 10/01/2023 7:29 PM CDT [facility] CSF 10/01/2023 6:01 PM CDT 10/01/2023 6:32 PM CDT Lubna Sommer PA-C LAB_1 Performing Organization Address [facility] Co de Phone Number [address] * CSF Lab Orders (10/01/2023 6:01 PM CDT) CSF/BF Comment CSF Body Fluid received in lab. Please see separate orders for details. 10/01/2023 8:38 PM CDT [facility] Volume (ml) 13 mL 10/01/2023 8:38 PM CDT [facility] CSF LUMBAR PUNCTURE / Unknown 10/01/2023 6:01 PM CDT 10/01/2023 6:20 PM CDT Lubna Sommer PA-C LAB_1 Performing Organization Address [facility] Co de Phone Number [address] * IV Insertion, LST Perform (10/01/2023 3:05 PM CDT) IV INSERTION, LST PERFORM (LAB) Done 10/01/2023 5:00 PM CDT [facility] Other Specimen Type IV Start / Unknown 10/01/2023 3:05 PM CDT 10/01/2023 3:50 PM CDT Lubna Sommer PA-C LAB_1 Performing Organization Address [facility] de Phone Number [address] * CT Head WO IV Cont (10/01/2023 2:19 PM CDT) Anatomical Region Laterality Modality Head Computed Tomogra phy 10/01/2023 2:19 PM CDT Narrative 10/01/2023 3:02 PM CDT EXAM: CT HEAD WO IV CONT LOCATION: [facility] DATE: 10/01/2023 INDICATION: Acute headache COMPARISON: 09/28/2023 [...] EXAM: CT HEAD WO IV CONT LOCATION: [facility] DATE: 10/01/2023 INDICATION: Acute headache COMPARISON: 09/28/2023 [...] Blood Count-No Diff (10/01/2023 1:31 PM CDT) [facility] WBC 10.2 3.5 - 10.5 x10(9)/L 10/01/2023 1:41 PM CDT [facility] RBC 4.28 3.90 - 5.03 x10(12)/L 10/01/2023 1:41 PM [facility] Hemoglobin 12.0 12.0 - 15.5 g/dL 10/01/2023 1:41 PM [facility] HCT 37.1 34.9 - 44.5 % 10/01/2023 1:41 PM [facility] MCV 86.7 80.0 - 100.0 fL 10/01/2023 1:41 PM [facility] MCH 28.0 27.6 - 33.3 pg 10/01/2023 1:41 PM [facility] MCHC 32.3 31.5 - 35.2 g/dL 10/01/2023 1:41 PM [facility] RDW 13.9 11.9 - 15.5 % 10/01/2023 1:41 PM [facility] Platelets 245 150 - 450 x10(9)/L 10/01/2023 1:41 PM [facility] Automated NRBC 0 <=0 /100 WBC 10/01/2023 1:41 PM [facility] Blood Venipuncture / Unknown 10/01/2023 1:31 PM CDT 10/01/2023 1:37 PM CDT Lubna Sommer PA-C LAB_1 Performing Organization Address City/[facility]/ZIP Co de Phone Number [address] * IV Insertion, LST Perform (10/01/2023 9:57 AM CDT) IV INSERTION, LST PERFORM (LAB) Done 10/01/2023 12:00 PM [facility] Other Specimen Type IV Start / Unknown 10/01/2023 9:57 AM CDT 10/01/2023 10:55 AM CDT Guillermina Delvalle DO LAB_1 Performing Organization Address [facility] Co de Phone Number [address] * (ABNORMAL) Basic Metabolic Panel (10/01/2023 7:24 AM CDT) Pathologist [facility] Sodium 137 136 - 145 mmol/L 10/01/2023 1:25 PM T [facility] Potassium 3.7 3.5 - 5.1 mmol/L 10/01/2023 1:25 PM [facility] Chloride 106 98 - 109 mmol/L 10/01/2023 1:25 PM [facility] CO2 24 20 - 29 mmol/L 10/01/2023 1:25 PM [facility] Anion Gap 7 6 - 16 mmol/L 10/01/2023 1:25 PM [facility] Calcium 8.8 8.4 - 10.4 mg/dL 10/01/2023 1:25 PM [facility] BUN 9 7 - 26 mg/dL 10/01/2023 1:25 PM [facility] Creatinine 0.67 0.55 - 1.02 mg/dL 10/01/2023 1:25 PM [facility] Glucose 119(H) 70 - 100 mg/dL 10/01/2023 1:25 PM [facility] Comment:The given reference range is for the fasting state. Non-fasting reference range for glucose is 70 - 180 mg/dL. GFR, Estimated >60 >60 mL/min/1.7 3m2 10/01/2023 1:25 PM [facility] Blood Venipuncture / Unknown 10/01/2023 7:24 AM CDT 10/01/2023 7:28 AM CDT Lubna Sommer PA-C LAB_[address] * (ABNORMAL) C-Reactive Protein (10/01/2023 7:24 AM CDT) C-Reactive Protein 2.2(H) 0.0 - 0.5 mg/dL 10/01/2023 7:58 AM [facility] Blood Venipuncture / Unknown 10/01/2023 7:24 AM CDT 10/01/2023 7:28 AM CDT Rosalina Hannah MD LAB_[address] * MRSA, Molecular Detection (09/29/2023 12:55 PM CDT) MRSA Not Detected Not Detected 09/29/2023 2:25 PM CDT [facility] Swab (Source Required) ENTIRE ANTERIOR NARIS / Unknown Non-blood Collection / Unknown 09/29/2023 12:55 PM CDT 09/29/2023 1:00 PM CDT [facility] 09/29/2023 2:25 PM CDT Methodology: Qualitative real-time PCR assay Lubna Sommer PA-C LAB_1 Performing Organization Address [facility] Co de Phone Number [address] * IV Insertion, LST Perform (09/29/2023 4:44 AM CDT) Pathologist [facility] IV INSERTION, LST PERFORM (LAB) Done 09/29/2023 8:00 AM CDT [facility] Other Specimen Type IV Start / Unknown 09/29/2023 4:44 AM CDT 09/29/2023 6:25 AM CDT Svitlana Bazan APRN, CNP LAB_1 Performing Organization Address [facility] Co de Phone Number [address] * (ABNORMAL) C-Reactive Protein (09/29/2023 4:44 AM CDT) Pathologist [facility] C-Reactive Protein 2.6(H) 0.0 - 0.5 mg/dL 09/29/2023 5:18 AM CDT [facility] Blood IV Start / Unknown 4:44 AM CDT 09/29/2023 4:50 AM CDT Sussy Villeda APRN CARPET INSPECTOR LAB_1 Performing Organization Address [facility] Co de Phone Number [address] * (ABNORMAL) Basic Metabolic Panel (09/29/2023 4:44 AM CDT) Pathologist [facility] Sodium 137 136 - 145 mmol/L 09/29/2023 5:18 AM T [facility] Potassium 3.9 3.5 - 5.1 mmol/L 09/29/2023 5:18 AM [facility] Chloride 107 98 - 109 mmol/L 09/29/2023 5:18 AM [facility] CO2 25 20 - 29 mmol/L 09/29/2023 5:18 AM [facility] Anion Gap 5(L) 6 - 16 mmol/L 09/29/2023 5:18 AM [facility] Calcium 8.9 8.4 - 10.4 mg/dL 09/29/2023 5:18 AM [facility] BUN 12 7 - 26 mg/dL 09/29/2023 5:18 AM [facility] Creatinine 0.76 0.55 - 1.02 mg/dL 09/29/2023 5:18 AM [facility] Glucose 92 70 - 100 mg/dL 09/29/2023 5:18 AM [facility] Comment:The given reference range is for the fasting state. Non-fasting reference range for glucose is 70 - 180 mg/dL. GFR, Estimated >60 >60 mL/min/1.7 3m2 09/29/2023 5:18 AM [facility] Blood IV Start / Unknown 4:44 AM CDT 09/29/2023 4:50 AM CDT Sussy Villeda PAROLE OFFICER, CARPET INSPECTOR LAB_[address] [address], [facility] * (ABNORMAL) Complete Blood Count-No Diff (09/29/2023 4:44 AM CDT) Pathologist [facility] WBC 9.8 3.5 - 10.5 x10(9)/L 09/29/2023 5:06 AM [facility] RBC 3.94 3.90 - 5.03 x10(12)/L 09/29/2023 5:06 AM [facility] Hemoglobin 11.1(L) 12.0 - 15.5 g/dL 09/29/2023 5:06 AM CDT [facility] HCT 34.8(L) 34.9 - 44.5 % 09/29/2023 5:06 AM CDT [facility] MCV 88.3 80.0 - 100.0 fL 09/29/2023 5:06 AM CDT [facility] [place] M[facility] 28.2 27.6 - 33.3 pg 09/29/2023 5:06 AM CDT [facility] [place] MCHC 31.9 31.5 - 35.2 g/dL 09/29/2023 5:06 AM T [facility] [place] RDW 14.0 11.9 - 15.5 % 09/29/2023 5:06 AM T [facility] [place] Platelets 227 150 - 450 x10(9)/L 09/29/2023 5:06 AM T [facility] [place] Automated NRBC 0 <=0 /100 WBC 09/29/2023 5:06 AM T [facility] [place] Blood IV Start / Unknown 4:44 AM CDT 09/29/2023 4:50 AM CDT Sussy Villeda PAROLE OFFICER, CARPET INSPECTOR LAB_1 Performing Organization Address City/State/[facility] Co de Phone Number [address] * MR Brain W/WO IV Cont (09/28/2023 8:03 PM CDT) Anatomical Region Laterality Modality Head Magnetic Resonan ce 09/28/2023 8:03 PM CDT Narrative 09/28/2023 9:38 PM CDT EXAM: MR BRAIN W/WO IV CONT LOCATION: [facility] [place] DATE: 09/28/2023 INDICATION: Status post bifrontal craniotomy [...] EXAM: MR BRAIN W/WO IV CONT LOCATION: [facility] DATE: 09/28/2023 INDICATION: Status post bifrontal [...] findings specific for residual tumor. Sussy Villeda PAROLE OFFICER, CARPET INSPECTOR RAD MRI * (ABNORMAL) C-Reactive Protein (09/28/2023 5:07 PM CDT) Pathologist [facility] C-Reactive Protein 2.9(H) 0.0 - 0.5 mg/dL 09/28/2023 6:02 PM CDT [facility] [place] Blood Venipuncture / Unknown 09/28/2023 5:07 PM CDT 09/28/2023 5:20 PM CDT Lucia Culver PA-C LAB_1 Performing Organization Address City/State/[facility] Co de Phone Number [address] * Complete Blood Count -no Diff (09/28/2023 5:07 PM CDT) Pathologist [facility] WBC 10.4 3.5 - 10.5 x10(9)/L 09/28/2023 5:24 PM CDT [facility] [place] RBC 4.25 3.90 - 5.03 x10(12)/L 09/28/2023 5:24 PM [facility] Hemoglobin 12.0 12.0 - 15.5 g/dL 09/28/2023 5:24 PM [facility] HCT 37.6 34.9 - 44.5 % 09/28/2023 5:24 PM [facility] MCV 88.5 80.0 - 100.0 fL 09/28/2023 5:24 PM T [facility] [place] MCH 28.2 27.6 - 33.3 pg 09/28/2023 5:24 PM CDT [facility] [place] MCHC 31.9 31.5 - 35.2 g/dL 09/28/2023 5:24 PM T [facility] [place] RDW 14.0 11.9 - 15.5 % 09/28/2023 5:24 PM T [facility] [place] Platelets 233 150 - 450 x10(9)/L 09/28/2023 5:24 PM T [facility] [place] Automated NRBC 0 <=0 /100 WBC 09/28/2023 5:24 PM T [facility] [place] Blood Venipuncture / Unknown 09/28/2023 5:07 PM CDT 09/28/2023 5:20 PM CDT Lucia Culver PA-C LAB_1 Performing Organization Address [facility]/ZIP Co de Phone Number [address] * Basic Metabolic Panel (09/28/2023 5:07 PM CDT) [facility] Sodium 139 136 - 145 mmol/L 09/28/2023 5:51 PM [facility] Potassium 3.9 3.5 - 5.1 mmol/L 09/28/2023 5:51 PM [facility] Chloride 108 98 - 109 mmol/L 09/28/2023 5:51 PM [facility] CO2 24 20 - 29 mmol/L 09/28/2023 5:51 PM [facility] Anion Gap 7 6 - 16 mmol/L 09/28/2023 5:51 PM [facility] Calcium 9.0 8.4 - 10.4 mg/dL 09/28/2023 5:51 PM [facility] BUN 11 7 - 26 mg/dL 09/28/2023 5:51 PM [facility] Creatinine 0.62 0.55 - 1.02 mg/dL 09/28/2023 5:51 PM [facility] Glucose 92 70 - 100 mg/dL 09/28/2023 5:51 PM [facility] Comment:The given reference range is for the fasting state. Non-fasting reference range for glucose is 70 - 180 mg/dL. GFR, Estimated >60 >60 mL/min/1.7 3m2 09/28/2023 5:51 PM [facility] Blood Venipuncture / Unknown 09/28/2023 5:07 PM CDT 09/28/2023 5:20 PM CDT Lucia Culver PA-C LAB_1 Performing Organization Address City/[facility]/ZIP Co de Phone Number [place], [place] [address] documented in this encounter Visit Diagnoses Diagnosis Impetigo- Primary Postoperative infection, unspecified type, initial encounter Wound infection Posttraumatic wound infection not elsewhere classified Surgical site infection Acute pain Wound infection Posttraumatic wound infection not elsewhere classified Surgical site infection Nonintractable headache New daily persistent headache History of resection of meningioma Other postprocedural status Recurrent cold sores Herpes simplex without mention of complication * Plan of Care - Sheila Branch PT - 10/05/2023 3:24 PM CDT [facility] [place] Physical Therapy Inpatient Rehabilitation Additional Documentation Orders received and chart reviewed. Per patient and RN, patient has been mobilizing independently in her hospital room and has been ambulating the halls frequently without concern. Patient denies anyPT related concerns for home; lives with family who can assist as needed and has been managing wellat home post initial tumor resection. No inpatient PT needs indicated at this time. Please reorder should status change. Discharge Recommendations: return home with support from family Sheila Branch PT, DPT * Plan of Care - Ashwini Pantoja RN - 10/05/2023 3:15 PM CDT Alert/oriented x4. Independent in room. Headaches much improved this morning, tolerable with prn pain medications - see MAR. Neuros intact and unchanged. PERRL. Discharge and medication teaching completed with patient, patient verbalized understanding. [facility] [place] Discharge Note - Nursing Admission Date/Time: 09/28/2023 4:16 PM Attending MD: Patient discharged: to Home. Discharge Date: 10/05/2023 Discharge Time: 3:27 PM Patient accompanied by: relative - son. Transported by: Walked Valuables were taken home [...] required) No Patients general condition on discharge: Stable All medical devices (telemetry/IV/etc) unless otherwise ordered, have been removed and stored: Yes - discharged with PICC per MD orders for IV abx post-hospitalization. --- End of Report --- * Plan of Care - Iram Cassidy OTR/L - 10/05/2023 2:10 PM CDT Occupational Therapy Orders received and chart reviewed. Patient sitting up in chair upon arrival, has been independently ambulating in room and managing ADLs independently. Patient denies any OT related concerns for home; lives with family who can assist as needed and has been managing well at home post initial tumor r esection. No inpatient OT needs indicated at this time. Please reorder should status change. Discharge Recommendations: return home with support from family Iram Cassidy OTR/L * Plan of Care - Cherelle Turner L.Ac. - 10/05/2023 2:10 PM CDT Acupuncture stopped to see Ruthann. Ruthann has never had acupuncture before and is not interested in trying. Encouraged to have RN page rewriter if she changes her mind. Will stop back in if requested otherwise will not check back. FYI * Plan of Care - Sherman Jean RN - 10/05/2023 12:29 PM CDT [facility] Care Management Initial Assessment Plan: Care Team Actions Needed: MD medical clearance, discharge orders Provided patient/family with coordination of care choices for:: Home Care Actual patient/family choice(s):: Home Expected discharge date: 10/05/2023 Admission Info: Reason for Consult: discharge planning Chart Reviewed: discussed with interdisciplinary team, discussed with patient Contacts: Emergency Contacts [employer] (Rel.) Home Phone Work Phone Mobile Phone WERO BRAY (Son) [phone] -- -- SARY ROSAS (Daughter) [phone] -- -- Stefany Leyva [phone] -- -- Cognitive capacity prior to admission: oriented Independent with ADLs (Prior to Admission)? 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 Living Environment: Living Arrangements (select all that apply): Home - 1 story, Adult children, Grandchildren Resource/Environmental Concerns: none Medication management by: patient Personal Assistive Devices: None Number of Stairs, Within Home: none Number of Stairs, Entrance: two Food Insecurity: No Food Insecurity (09/29/2023) Hunger Vital Sign Worried About Running Out of Food in the Last Year: Never true Ran Out of Food in the Last Year: Never true Coping/Stress: Patient Personal Strengths: able to adapt, self-reliant, positive attitude, resilient Sources of Support: Adult child(erica) Reaction to Health Status: adjusting Understanding of Condition and Treatment: unable to assess Emotional/Psychological: Affect: Affect consistent with mood Emotion/Mood: Appropriate to situation Speech: articulate, clear, coherent Judgment and Insight: Insight appropriate to situation, Judgment appropriate to situation Thought Process: relevant, linear thought process, logical Current Patient Assessment: appropriate, pleasant, cooperative Barriers: patient continues to require acute medical care Current Services: Prior Services: Selected Continued Care - Admitted Since 09/28/2023 Durable Medical Equipment Service Provider Selected Services Address Phone Fax [employer] Durable Medical Equipment [address] [facility] [address] [phone] Dialysis/Infusion Coordination complete. Service Provider Selected Services Address Phone Fax [facility] Infusion and IV Therapy [address] [facility] [address] [phone] Home Medical Care Coordination complete. Service Provider Selected Services Address Phone Fax [facility] [address] [facility] [phone] Transport Needs: Anticipated Transportation Mode: Private Vehicle Anticipated Transportation Provider: Family/Friend Discharge Transportation Needs: None Number of Stairs, Entrance: two Number of Stairs, Within Home: none Primary Care: Primary Care Clinic: [facility] Primary Care Physician: Svitlana Olmos MD Functional Level Prior: Functional Screen (Baseline Prior to Admission) Ambulation: Independent Transferring: Independent Toileting: Independent Bathing: Independent Dressing: Independent Eating: Independent Communication: Understands/communicates without difficulty Swallowing: Swallows foods/liquids without difficulty Meal Preparation: Independent Laundry: Independent Finances: Independent Shopping: Independent Transportation: Drives Independently 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 Spoke to patient and family at bedside and Ruthann agrees and understands her discharge plans andhas no further questions at this time. Barriers to Discharge: Medical clearance Does patient have PCP? Yes Is clinic follow up indicated? Yes in AVS Transportation: family Provider, cranberry bog supervisor, bed side RN, and nurse management updated. CM/SW Team will continue to follow for coordination of care, discharge planning and offer support as needed. Sherman Jean MARINE EQUIPMENT ENGINEER, Professional System Administrator Pager [phone] * Plan of Care - Helio Branham RN - 10/05/2023 7:47 AM CDT Pt A&Ox4, c/o increased headaches noc, pain meds given per APR. Pt concerned about failed blood patch, no other S/Sx, neuro intact. Up this morning to BR, no additional symptoms. * Plan of Care - Fede Baez RN - 10/04/2023 6:26 PM CDT [facility] [place] Plan of Care Note Assessment: Skin Plan: Pain control, blood patch Subjective: I am going to wait until 5pm just to be safe Objective: A/Ox4, follows commands, can make needs known, complains of headache, controlled w/ current prn regimen, up ad ryne, denies numbness/ tingling, rash/ wound on face, scabbed/ dry, pt performing wound care by herself per preference, had blood patch placed, completed bedrest, ambulating w/o increased pain following procedure, site C/D/I, PICC line patent. --- End of Report --- * Plan of Care - Felicita Ackerman RN - 10/04/2023 4:00 AM CDT [facility] Plan of Care Note Assessment: Pain control and lumbar puncture site Plan: Pain management Subjective: My pain is gradually improving. Objective: Pt. Received PRN oxy and toradol; tolerated well. Received Ax and tolerated well. Pt. Ambulated to bathroom independently. Headache pain rated at a 4/10 at rest and 5/10 while ambulating to the bathroom. Currently staying on top of pain medications. Lumbar puncture site is flat, clean, dry, and intact.Pt. reports a headache this AM but thinks it may be from sleeping weird on her neck. Bed alarm on for safety and call light within reach. --- End of Report --- * Plan of Care - Hattie Rosas RN - 10/03/2023 9:49 PM CDT Headache pain rated 4/10 this evening. She tolerated sitting up better this evening that she did earlier today--headache less intense. Lumbar puncture site CDI and flat. Appetite improved this evening. * Plan of Care - Ludy Gutiérrez - 10/03/2023 4:13 PM CDT 10/03/23 [id number] Session Info Patient Location [facility] Patient Location (On & Off Unit) S10 Therapy explained Patient Verbal consent given per Patient Session Length 60 min Assessment Source Patient Patient Comments/Feedback I feel like I'm melting into the bed. This is so wonderful. I haven't had a massage in over 20 years. I'm realizing through this whole process that I need to prioritize self-care more. Massage Massage Considerations post-surgical / Impetigo Consent? patient able to consent Massage Provided Positioning for Massage Reclining in bed Areas Addressed with Massage Neck;Shoulder;Upper back;Middle back;Lower back;Arms;Feet * Initial Assessments - Sherman Jean RN - 10/03/2023 3:19 PM CDT [facility] Care Management Follow Up Note Plan: Care Team Actions Needed: MD medical clearance, discharge orders Provided patient/family with coordination of care choices for:: Home Care Actual patient/family choice(s):: Home Expected discharge date: 10/04/2023 Admission Info: Reason for Consult: discharge planning Chart Reviewed: discussed with interdisciplinary team, discussed with patient Contacts: Emergency Contacts [employer] (Rel.) Home Phone Work Phone Mobile Phone WERO BRAY (Son) [phone] -- -- SARY ROSAS (Daughter) [phone] -- -- Stefany Leyva [phone] -- -- Cognitive capacity prior to admission: oriented Independent with ADLs (Prior to Admission)? 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 Living Environment: Living Arrangements (select all that apply): Home - 1 story, Adult children, Grandchildren Resource/Environmental Concerns: none Medication management by: patient Personal Assistive Devices: None Number of Stairs, Within Home: none Number of Stairs, Entrance: two Food Insecurity: No Food Insecurity (09/29/2023) Hunger Vital Sign Worried About Running Out of Food in the Last Year: Never true Ran Out of Food in the Last Year: Never true Coping/Stress: Patient Personal Strengths: able to adapt, self-reliant, positive attitude, resilient Sources of Support: Adult child(erica) Reaction to Health Status: adjusting Understanding of Condition and Treatment: unable to assess Emotional/Psychological: Affect: Affect consistent with mood Emotion/Mood: Appropriate to situation Speech: articulate, clear, coherent Judgment and Insight: Insight appropriate to situation, Judgment appropriate to situation Thought Process: relevant, linear thought process, logical Current Patient Assessment: appropriate, pleasant, cooperative Barriers: patient continues to require acute medical care Current Services: NA Transport Needs: Anticipated Transportation Mode: Private Vehicle Discharge Transportation Needs: None Number of Stairs, Entrance: two Number of Stairs, Within Home: none Primary Care: Primary Care Clinic: [facility] Primary Care Physician: Svitlana Olmos MD Functional Level Prior: Functional Screen (Baseline Prior to Admission) Ambulation: Independent Transferring: Independent Toileting: Independent Bathing: Independent Dressing: Independent Eating: Independent Communication: Understands/communicates without difficulty Swallowing: Swallows foods/liquids without difficulty Meal Preparation: Independent Laundry: Independent Finances: Independent Shopping: Independent Transportation: Drives Independently 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 Met with patient, introduced myself and my role as manager case/social work therapist. Verified demographics. Patient resides with 3 adult children and 2 grandchildren in a single-family home. Patient has 2 stairs to enter and 0 within. Patient is completley independent at baseline in regard to all IADLS/ADLS. Patient does not utilize DME for mobility support. Patient is currently working full-time. Patient is not connected to any in-home community support/services at this time. Has support from adult children. Patient uses self to get to their medical appointments. PCP is Svitlana Olmos MD at [facility]. Patients has/denies case management community support: NA Admitted for Infection following a procedure, other surgical site, initial encounter [T81.49XA] Postoperative infection, unspecified type, initial encounter [T81.40XA] Postoperative infection, unspecified type, initial encounter [T81.40XA] Patient is not medically cleared and not ready for discharge, pending clinical improvement and medical clearance. Provider anticipates patient will need another 1-2 more days in the hospital. Attending notified this rewriter that patient will require home IV antibiotics at the time of discharge. Therefore, SW met with patient to review DC plan. Patient appeared to be experiencing pain during SW visit. Patient shared that she contacted staff radiation therapist for medication support (staff arrived before visit ended). Patient is in agreement with discharging back to home with IV antibiotics. SW informed patient thata RNCM will be back on Tuesday and able to review home IV antibiotic plan in detail. Patient expressed understanding. Preliminary referral submitted to [facility] for review. In addition, email sent to Mila with [facility] including unit RNCM regarding the need for home IV antibiotics at discharge/pending referral. SW offered home care services to patient. Patient shared that she would consider the need for home care closer to day of discharge-RNCM to follow-up with home care need/additional supports services. Patient shared the need for a hospital bed-request relayed to attending (PAT notified patient does not qualify for hospital bed-care management team to inform patient). Anticipated Discharge Plan: DC back to home with [facility] Home IV antibiotics and outpatient follow-up, will also have [facility] for RN PICC line management. Teaching was completed today by [facility] rep patientcleared now to NH by IV pharmacy. Patient requesting hospital bed, RN spoke with Julia bocanegra awaiting to find out if patient has coverage. Likely will be able to DC home Tuesday pending Work over headaches. Barriers to their discharge: Medical clearance [facility] outpatient IV antibiotic coordination CM/SW Action Items: Follow-up with [facility]-referral pending Connect with patient on Monday 10/02 to review/coordinate DC plan and inquire the need for home care support Notify patient that per team she does not quality for a hospital bed at this time Anticipated transport at time of discharge: Family CM/SW Team will continue to follow for coordination of care, discharge planning and offer support as needed. SHAWN Alegre * Initial Assessments - Sheila Gramajo LGSW - 10/01/2023 12:34 PM CDT [facility] Care Management Initial Assessment Plan: Care Team Actions Needed: MD medical clearance, discharge orders Provided patient/family with coordination of care choices for:: Home Care Actual patient/family choice(s):: Home Expected discharge date: 10/03/2023 Admission Info: Reason for Consult: discharge planning Chart Reviewed: discussed with interdisciplinary team, discussed with patient Contacts: Emergency Contacts [employer] (Rel.) Home Phone Work Phone Mobile Phone WERO BRAY (Son) [phone] -- -- SARY ROSAS (Daughter) [phone] -- -- Stefany Leyva [phone] -- -- Cognitive capacity prior to admission: oriented Independent with ADLs (Prior to Admission)? 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 Living Environment: Living Arrangements (select all that apply): Home - 1 story, Adult children, Grandchildren Resource/Environmental Concerns: none Medication management by: patient Personal Assistive Devices: None Number of Stairs, Within Home: none Number of Stairs, Entrance: two Food Insecurity: No Food Insecurity (09/29/2023) Hunger Vital Sign Worried About Running Out of Food in the Last Year: Never true Ran Out of Food in the Last Year: Never true Coping/Stress: Patient Personal Strengths: able to adapt, self-reliant, positive attitude, resilient Sources of Support: Adult child(erica) Reaction to Health Status: adjusting Understanding of Condition and Treatment: unable to assess Emotional/Psychological: Affect: Affect consistent with mood Emotion/Mood: Appropriate to situation Speech: articulate, clear, coherent Judgment and Insight: Judgment appropriate to situation, Insight appropriate to situation Thought Process: relevant, linear thought process, logical Current Patient Assessment: appropriate, pleasant, cooperative Barriers: patient continues to require acute medical care Current Services: NA Transport Needs: Anticipated Transportation Mode: Private Vehicle Discharge Transportation Needs: None Number of Stairs, Entrance: two Number of Stairs, Within Home: none Primary Care: Primary Care Clinic: [facility] Primary Care Physician: Sivtlana Olmos MD Functional Level Prior: Functional Screen (Baseline Prior to Admission) Ambulation: Independent Transferring: Independent Toileting: Independent Bathing: Independent Dressing: Independent Eating: Independent Communication: Understands/communicates without difficulty Swallowing: Swallows foods/liquids without difficulty Meal Preparation: Independent Laundry: Independent Finances: Independent Shopping: Independent Transportation: Drives Independently 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 Met with patient, introduced myself and my role as manager case/social work therapist. Verified demographics. Patient resides with 3 adult children and 2 grandchildren in a single-family home. Patient has 2 stairs to enter and 0 within. Patient is completley independent at baseline in regard to all IADLS/ADLS. Patient does not utilize DME for mobility support. Patient is currently working full-time. Patient is not connected to any in-home community support/services at this time. Has support from adult children. Patient uses self to get to their medical appointments. PCP is Svitlana Olmos MD at [facility]. Patients has/denies case management community support: NA Admitted for post op infection Patient is not medically cleared and not ready for discharge, pending clinical improvement and medical clearance. Provider anticipates patient will need another 1-2 more days in the hospital. Attending notified this rewriter that patient will require home IV antibiotics at the time of discharge. Therefore, SW met with patient to review DC plan. Patient appeared to be experiencing pain during SW visit. Patient shared that she contacted staff radiation therapist for medication support (staff arrived before visit ended). Patient is in agreement with discharging back to home with IV antibiotics. SW informed patient thata RNCM will be back on Tuesday and able to review home IV antibiotic plan in detail. Patient expressed understanding. Preliminary referral submitted to [facility] for review. In addition, email sent to Mila with [facility] including unit RNCM regarding the need for home IV antibiotics at discharge/pending referral. SW offered home care services to patient. Patient shared that she would consider the need for home care closer to day of discharge-RNCM to follow-up with home care need/additional supports services. Patient shared the need for a hospital bed-request relayed to attending (PAT notified patient does not qualify for hospital bed-care management team to inform patient). Anticipated Discharge Plan: DC back to home with [facility] IV antibiotics and outpatient follow-up Barriers to their discharge: Medical clearance [facility] outpatient IV antibiotic coordination CM/SW Action Items: Follow-up with [facility]-referral pending Connect with patient on Jacob 8/5 to review/coordinate DC plan and inquire the need for home care support Notify patient that per team she does not quality for a hospital bed at this time Anticipated transport at time of discharge: Family CM/SW Team will continue to follow for coordination of care, discharge planning and offer support as needed. SHAWN Alegre * Plan of Care - Ludy Gutiérrez - 09/30/2023 3:55 PM CDT 09/30/23 1552 Session Info Patient Location [facility] Patient Location (On & Off Unit) S10 Massage Massage Unavailable (eating @ 9165) * Plan of Care - Cherelle Turner L.Ac. - 09/30/2023 2:04 PM CDT Acupuncture stopped twice to see Ruthann. Initial attempt with another provider, second attempt Ruthann declines. Encouraged to have RN call acupuncture on Vocera should she change her mind. Willcheck back as able while inpatient. Thank you for referring this patient to [facility]. * Plan of Care - Britney Rivera RN - 09/30/2023 6:07 AM CDT [facility]. Practitioner Notified Note Name of Practitioner notified: Nicole Moss MD Time of Practitioner notification: 6:07 AM Reason: Pt reported N/V. pt has no prn antiemetic meds. would you place order for Zofran per pt request? Thanks. Response: Awaiting for reply. See new order. * Plan of Care - Britney Rivera RN - 09/30/2023 5:28 AM CDT Patient A&O x4. Patient reports that her pain is not manageable with current pain plan. Paged cross cover MD. CLARA met with the pt discussed about pain medication dose and frequency. Placed one time order for oxycodone 2.5 mg along with prn pain meds. Patient reported her pain tolerable in thisshift. Pt wants to be seen by her provider this morning to discuss her pain plan. Mupirocin ointment applied to face per order. Pt independent in the room. * Plan of Care - Urbano Koch RN - 09/29/2023 7:28 PM CDT [facility] Plan of Care Note Assessment: Pain Plan: Tolerable pain Subjective: Pt reports moderate to severe pain Objective: Pt alert and orientation x4. Reported tolerable pain earlier but now reports severe painwith medication change. Facial skin irritation. Teams notified. Pt up and ambulates independent. --- End of Report --- * Initial Assessments - Nico Tao RN - 09/29/2023 12:33 PM CDT [facility] Care Management Screening Insurance Coverage: Payor: [employer] / Plan: [facility]NAG[facility] / Product Type: Commercial / Primary Care Provider: Svitlana Olmos MD [facility] Admission Info: Cognitive capacity prior to admission: oriented Independent with ADLs (Prior to Admission)? Yes Living Environment: Living Arrangements (select all that apply): Home - 1 story, Adult children, Grandchildren Follow Up: Please consult CM/SW if needs arise, CM/SW will continue to follow throughout hospitalization Additional Comments: Patient's chart was reviewed and per care connection rounds, No care management/social work discharge needs were identified. Anticipate patient will discharge home once medically cleared. Please contact the career law clerk or social work therapist assigned to the treatment team if care coordination is identified. Patient lives in a single family home with 3 adult children and 2 grandchildren. 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 No CM/SW needs anticipated. NICO TAO RN,BSN * Plan of Care - Britney Rivera RN - 09/29/2023 6:13 AM CDT Patient A/O X4, able to interact with staff and communicate her needs appropriately. Patient managed pain with prn oxycodone, IV dilaudid and methocarbamol 500 mg. Independent in the room and ambulate to the bathroom with steady gait. Surgical site red and swelling along incision. Patient on vanco / Zosyn. Afebrile. No adverse reaction. VSS. Neuro remained intact. * Plan of Care - Sanjana Marte PharmD - 09/28/2023 9:35 PM CDT [facility] Vancomycin Therapeutic Drug Monitoring Consult Initial Consult Note SUBJECTIVE/OBJECTIVE: Ruthann Rosas is a 58 y.o. female who we are consulted to dose and monitor vancomycin for Other(neurosurgical site infection). Goal vancomycin target: AUC/ASAF ratio of 400 to 600 mg*hr/L Which model is used?: 1-compartment (most admitted adult inpatients who are hemodynamically stable) Already received vancomycin in the ED or at an outside facility?: Yes. Given at [facility]. Pertinent vital signs and laboratory data: Estimated Creatinine Clearance: 100.7 mL/min (by C-G formula based on SCr of 0.62 mg/dL). Lab Results Component Value Date/Time CREATININE 0.62 09/28/2023 05:07 PM CREATININE 0.61 09/21/2023 06:29 AM CREATININE 0.55 09/19/2023 06:28 AM ASSESSMENT/PLAN: Loading dose is indicated given presumed severe infection in which benefits of a loading dose outweigh the risks Received loading dose of 1500 mg @ 1515 today at OSH Begin maintenance dosing of 1250 mg every 12 hours Monitor vancomycin exposure using 1-level AUC monitoring (a trough level) at steady state or as indicated by changes in renal function Re-evaluate indication for vancomycin daily Follow clinical course and microbiology data Thank you, Sanjana Marte, PharmD Contact: See Amion * Plan of Care - Timur Weiss, PharmD - 09/28/2023 5:57 PM CDT [facility] Medication History Note 1. Source(s) of Medication Information: Patient, , QUIQ Med List 2. Pertinent Information: Recent prior to admission medication changes: Medications added: None Medications deleted: Medications changed: None The patient states that she is NOT taking gabapentin anymore 3. Outpatient Medications Marked as Taking: Outpatient Medications Marked as Taking for the 09/28/23 encounter (Hospital Encounter) Medication Sig Note Last Dose acetaminophen (TYLENOL) 325 MG tablet Take 1-2 Tablets (325-650 mg) by mouth every 6 hours as needed for Pain. As Directed-PRN acyclovir (ZOVIRAX) 400 MG tablet Take 1 Tablet (400 mg) by mouth three times a day as needed. As Directed-PRN ascorbic acid (AKA VITAMIN C) 500 MG tablet Take 2 Tablets (1,000 mg) by mouth daily. 09/27/2023 Calcium Carbonate (CALCIUM 500 OR) Take 1 Tablet by mouth daily. 09/27/2023 cephalexin (KEFLEX) 500 MG capsule Take 1 Capsule (500 mg) by mouth 4 times a day. 09/28/2023: The patient has taken 2 doses today (09/28/23) so far. The patient started this medication yesterday (09/27/23) and states that she has taken a total of 5 doses so far 09/28/2023 cholecalciferol (VITAMIND3) 50 MCG (2000 UT) tablet Take 2 Tablets (4,000 Units) by mouth daily. 09/27/2023 famotidine (PEPCID) 20 MG tablet Take 1 Tablet (20 mg) by mouth two times a day before meals. 09/28/2023: The patient only received 6 tablets, but states that she is supposed to continue taking this medication 09/24/2023 Garlic (ODOR FREE GARLIC) 100 MG Take 1 Tablet (100 mg) by mouth daily. Do not start before September 28, 2023. 09/27/2023 hydrOXYzine pamoate (VISTARIL) 50 MG capsule Take 1 Capsule (50 mg) by mouth every 6 hours as needed for Pain. (Patient taking differently: Take 1 Capsule (50 mg) by mouth every 6 hours.) 09/28/2023: The patient states that she is taking this every 6 hours scheduled 09/28/2023 ibuprofen (MOTRIN) 600 MG tablet Take 1 Tablet (600 mg) by mouth every 6 hours as needed for Pain. Do not start before September 28, 2023. As Directed-PRN levETIRAcetam (KEPPRA) 500 MG tablet Take 1 Tablet (500 mg) by mouth two times a day for 7 days. 09/28/2023: Last filled on 09/20/23 for #14. The patient thinks that she has 3 or 4 tablets left 09/28/2023 at am methocarbamol (ROBAXIN) 500 MG tablet Take 1 Tablet (500 mg) by mouth 4 times daily as needed. (Patient taking differently: Take 1 Tablet (500 mg) by mouth 4 times a day.) 09/28/2023: The patient states that she is taking this four time daily scheduled 09/28/2023 Multiple Vitamins-Minerals (MULTIVITAMIN OR) Take 1 tablet by mouth daily (every 24 hours). 09/27/2023 mupirocin (BACTROBAN) 2 % ointment Apply topically three times a day. 09/28/2023 [place]-3 Fatty Acids (FISH OIL) 1000 MG capsule Take 1 Capsule (1,000 mg) by mouth daily. Do not start before September 28, 2023. 09/27/2023 oxyCODONE (ROXICODONE) 5 MG immediate release tablet Take 1-2 Tablets (5-10 mg) by mouth every 6 hours as needed for Pain. (Patient taking differently: Take 2 Tablets (10 mg) by mouth every 6 hours.)09/28/2023: The patient states that she is taking 10mg every 6 hours scheduled. Last filled on 09/27/23 for #30 09/28/2023 at 0800 sennosides-docusate sodium (SENOKOT S) 8.6-50 MG per tablet Take 2 Tablets by mouth two times dailyas needed for Constipation. Indications: Constipation (Patient taking differently: Take 2 Tablets by mouth two times a day. Indications: Constipation) 09/28/2023: The patient is taking 2 tablets twicedaily scheduled 09/28/2023 at am traZODone (DESYREL) 100 MG tablet Take 2 Tablets (200 mg) by mouth daily at bedtime. 09/27/2023 varenicline (CHANTIX) 1 MG tablet Take 1 Tablet (1 mg) by mouth two times a day. Take after eating with a full glass of water.NOTE:Dispense as maintenance for refills only. 09/28/2023: The patient wasunsure if she took this medication today or not. SHE STATES THAT SHE IS STILL TAKING THIS MEDICATION AND THAT IT NEEDS TO BE BRAND NAME. Last filled on 05/25/23 for #180 unsure Thank you. This list represents the best possible medication history available at the time of note completion and should be used as a guide in reconciling home medications for hospital use. ? 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 Antibiotic started yesterday.Here for evaluation Interventions/abnormal vitals: EMS meds: talon grady infusing, 8mg morphine \ documented in this encounter Administered Medications Inactive Administered Medications - up to 3 most recent administrations Medication Order MAR Action Action Date Dose Rate Site acetaminophen (TYLENOL) tablet 325 mg 325 mg, Oral, Q6H (NON-STND), First dose (after last modification) on Tue10/02/23 at 1100, Until Discontinued, Do not give two acetaminophen containing medications within 4 hours of each other. No more than 4 grams APAP per 24 hours from all sources. Given 10/05/2023 11:07 AM CDT 325 mg Given 10/05/2023 6:16 AM CDT 325 mg Given 10/05/2023 12:04 AM CDT 325 mg acetaminophen (TYLENOL) tablet 650 mg 650 mg, Oral, Q6H (NON-STND), First dose on Tue09/28/23 at 2145, Until Discontinued, Do not give two acetaminophen containing medications within 4 hours of each other. No more than 4 grams APAP per 24 hours from all sources. Given 10/02/2023 5:04 AM CDT 650 mg Given 10/01/2023 10:16 PM CDT 650 mg Given 10/01/2023 4:25 PM CDT 650 mg bisacodyl (DULCOLAX) rectal suppository 10 mg 10 mg, Rectal, DAILY PRN, Constipation, Starting on Tue09/29/23 at 1055, Until Tue10/05/23 at 1727 trysygmrkv-zimbewxexothz-pcllkqlz (FIORICET) 50-325-40 MG per tablet 1-2 Tablet 1-2 Tablet, Oral, Q6H PRN, Headache, Starting on Tue10/02/23 at 0813, Until Tue10/02/23 at 1751, Maximum of 6 tablets per day. Do not give within 4 hours of other acetaminophen containing products. Max apap 4 grams per 24 hours in all forms Given 10/02/2023 4:53 PM CDT 1 Tablet Given 10/02/2023 11:55 AM CDT 1 Tablet ceFAZolin (ANCEF) 2 g in sodium chloride 0.9 % 50 mL IVPB ADS 2 g, Intravenous, Administer over 30 Minutes, Q8H (NON-STND), First dose on Tue09/29/23 at 1900 Started 09/30/2023 12:00 PM CDT 2 g Started 09/30/2023 2:56 AM CDT 2 g Started 09/29/2023 7:01 PM CDT 2 g cefTRIAXone (ROCEPHIN) 2 g in sodium chloride 0.9 % 100 mL IVPB 2 g, Intravenous, Administer over 30 Minutes, Q12H (NON-STND), First dose on Tue09/30/23 at 1700, Do NOT infuse in same line with Lactated Ringers (LR), TPN, or other calcium-containing IV solutions due to incompatibility. Started 10/05/2023 11:18 AM CDT 2 g Started 10/04/2023 10:22 PM CDT 2 g 200 mL/hr Started 10/04/2023 11:49 AM CDT 2 g emollient (AQUAPHOR) ointment Topical, TID, First dose (after last modification) on Tue10/04/23 at 1000, Apply topically to Face Crusts and dry areas. Given 10/05/2023 3:00 PM CDT Face Given 10/05/2023 9:00 AM CDT Fa ce Given 10/04/2023 9:05 PM CDT Fa ce enoxaparin (LOVENOX) prefilled syringe 40 mg 40 mg, Subcutaneous, Q24H, First dose on Tue09/29/23 at 1215, Until Discontinued, Inject subcutaneously into abdominal tissue ??only. HIGH ALERT medication, On hold since Tue10/04/2023 at 1205 until manually unheld Given 10/01/2023 12:33 PM CDT 40 mg Abdominal Tissue Given 09/30/2023 12:00 PM CDT 40 mg A bdominal Tissue Given 09/29/2023 12:45 PM CDT 40 mg A bdominal Tissue famotidine (PEPCID) tablet 20 mg 20 mg, Oral, BID AC, First dose on Tue09/29/23 at 0700, Until Discontinued Given 10/05/2023 6:16 AM CDT 20 mg Given 10/04/2023 5:26 PM CDT 20 mg Given 10/04/2023 6:59 AM CDT 20 mg gabapentin (NEURONTIN) capsule 200 mg 200 mg, Oral, TID, First dose on Tue10/03/23 at 1400, Until Discontinued Given 10/05/2023 1:40 PM CDT 200 mg Given 10/05/2023 8:58 AM CDT 200 mg Given 10/04/2023 8:53 PM CDT 200 mg HYDROmorphone (DILAUDID) 1 MG/ML injection - ADS Override Pull Starting on Tue09/28/23 at 2044, Until Tue09/28/23 at 2050, For 1 dose, Julian Greco: cabinet override HYDROmorphone (DILAUDID) injection 0.2 mg 0.2 mg, Intravenous, Q2H PRN, Pain, Breakthrough pain or if unable to take PO, Starting on Tue09/28/23 at 2122, Until Tue09/29/23 at 1006, For 48 hours, Give IV opioid for breakthrough pain, if unable to give PO or per patient preference. Given 09/29/2023 9:37 AM CDT 0.2 mg Given 09/29/2023 7:21 AM CDT 0.2 mg Given 09/29/2023 5:19 AM CDT 0.2 mg HYDROmorphone (DILAUDID) injection 0.5 mg 0.5 mg, Intravenous, ONCE, On Tue09/28/23 at 2100, For 1 dose Given 09/28/2023 8:51 PM CDT 0.5 mg HYDROmorphone (DILAUDID) injection 1 mg 1 mg, Intravenous, ONCE, On Tue09/28/23 at 1715, For 1 dose Given 09/28/2023 4:56 PM CDT 1 mg HYDROmorphone (DILAUDID) injection 1 mg 1 mg, Intravenous, ONCE, On Tue09/28/23 at 1915, For 1 dose Given 09/28/2023 7:16 PM CDT 1 mg hydrOXYzine pamoate (VISTARIL) capsule 50 mg 50 mg, Oral, Q6H PRN, Other, Pain, Starting on Tue09/28/23 at 2122, Until Tue10/05/23 at 1727 Given 10/05/2023 1:40 PM CDT 50 mg Given 10/05/2023 6:17 AM CDT 50 mg Given 10/05/2023 12:05 AM CDT 50 mg ketorolac (TORADOL) injection 15 mg 15 mg, Intravenous, Q6H PRN, Pain, Starting on Tue10/03/23 at 1324, Until Tue10/05/23 at 1323, For 48 hours Given 10/05/2023 10:49 AM CDT 15 mg Given 10/05/2023 2:20 AM CDT 15 mg Given 10/04/2023 7:25 PM CDT 15 mg levETIRAcetam (KEPPRA) tablet 500 mg 500 mg, Oral, BID, First dose on Tue09/28/23 at 2145, Until Discontinued Given 09/29/2023 8:33 PM CDT 500 mg Given 09/29/2023 7:43 AM CDT 500 mg Given 09/28/2023 11:02 PM CDT 500 mg levETIRAcetam (KEPPRA) tablet 500 mg 500 mg, Oral, BID, First dose on Tue10/01/23 at 1315, Until Discontinued Given 10/05/2023 8:58 AM CDT 500 mg Given 10/04/2023 8:54 PM CDT 500 mg Given 10/04/2023 7:59 AM CDT 500 mg methocarbamol (ROBAXIN) tablet 500 mg 500 mg, Oral, QID PRN, Muscle Spasms, Starting on Tue09/28/23 at 2122, Until Tue10/05/23 at 1727 Given 10/05/2023 1:40 PM CDT 500 mg Given 10/05/2023 6:17 AM CDT 500 mg Given 10/05/2023 12:05 AM CDT 500 mg metoclopramide (REGLAN) injection 5 mg 5 mg, Intravenous, Q6H PRN, Nausea, Vomiting, Starting on Tue09/30/23 at 0607, Until Tue10/05/23 at 1727, Give 1st line medications, then 2nd line, then 3rd line. Progress to next line if medication is ineffective after 15 minutes, or has been previously ineffective, or if a medication for a line is not ordered. May use medication from any line if patient preference indicates. If 3rd line agent is ineffective, call Practitioner. If unable to give IV medications contact Practitioner. Aromatherapy may be used at any time as adjunct therapy. 1st Line - ondansetron (give ondansetron ODT (oral) if able to take oral, otherwise give IV) 2nd Line -prochlorperazine 3rd Line - metoclopramide mupirocin (BACTROBAN) 2 % ointment Topical, TID, First dose on Tue09/29/23 at 1400, Apply topically to forehead, cheeks, face Hazardous waste disposal required. Given 10/04/2023 9:05 PM CDT Face Given 10/04/2023 2:01 PM CDT Fa ce Given 10/04/2023 7:59 AM CDT Fa ce ondansetron (ZOFRAN) injection 4 mg 4 mg, Intravenous, Q6H PRN, Nausea, Vomiting, Other, If unable to take ODT ondansetron, Starting on Tue09/30/23 at 0607, Until Tue10/05/23 at 1727, Give 1st line medications, then 2nd line, then 3rd line. Progress to next line if medication is ineffective after 15 minutes, or has been previously ineffective, or if a medication for a line is not ordered. May use medication from any line if patient preference indicates. If 3rd line agent is ineffective, call Practitioner. If unable to give IV medications contact Practitioner. Aromatherapy may be used at any time as adjunct therapy. 1st line: ondansetron (give ondansetron ODT (oral) if able to take oral, otherwise give IV) 2nd line: prochlorperazine 3rd line: metoclopramide Given 09/30/2023 3:47 PM CDT 4 mg ondansetron (ZOFRAN-ODT) disintegrating tablet 4 mg 4 mg, Oral, Q6H PRN, Vomiting, Nausea, Starting on Tue09/30/23 at 0607, Until Tue10/05/23 at 1727, Give 1st line medications, then 2nd line, then 3rd line. Progress to next line if medication is ineffective after 15 minutes, or has been previously ineffective, or if a medication for a line is not ordered. May use medication from any line if patient preference indicates. If 3rd line agent is ineffective, call Practitioner. If unable to give IV medications contact Practitioner. Aromatherapy may be used at any time as adjunct therapy. 1st line: ondansetron (give ondansetron ODT (oral) if able to take oral, otherwise give IV) 2nd line: prochlorperazine 3rd line: metoclopramide Given 10/02/2023 12:14 AM CDT 4 mg Given 10/01/2023 9:44 AM CDT 4 mg Given 09/30/2023 6:33 AM CDT 4 mg oxyCODONE (ROXICODONE) immediate release tablet 10 mg 10 mg, Oral, Q4H PRN, Pain, Starting on Tue10/02/23 at 0810, Until Tue10/05/23 at 1727 Given 10/05/2023 3:16 PM CDT 10 mg Given 10/05/2023 11:07 AM CDT 10 mg Given 10/05/2023 6:20 AM CDT 10 mg oxyCODONE (ROXICODONE) immediate release tablet 2.5 mg 2.5 mg, Oral, ONCE, On Noy 09/29/23 at 2145, For 1 dose Given 09/29/2023 10:25 PM CDT 2.5 mg oxyCODONE (ROXICODONE) immediate release tablet 5 mg 5 mg, Oral, Q8H PRN, Pain, Starting on Tue09/29/23 at 1429, Until Tue09/30/23 at 1524 Given 09/30/2023 1:42 PM CDT 5 m g Given 09/30/2023 5:58 AM CDT 5 mg Given 09/29/2023 11:22 PM CDT 5 mg oxyCODONE (ROXICODONE) immediate release tablet 5-10 mg 5-10 mg, Oral, Q6H PRN, Pain, Starting on Tue09/28/23 at 2122, Until Tue09/29/23 at 1430, On hold since Tue09/29/2023 at 1006 until manually unheld Given 09/29/2023 4:20 AM CDT 5 mg Given 09/29/2023 4:17 AM CDT 5 mg Given 09/28/2023 11:02 PM CDT 10 mg oxyCODONE (ROXICODONE) immediate release tablet 5-10 mg 5-10 mg, Oral, Q6H PRN, Pain, Starting on Tue09/30/23 at 1524, Until Tue10/02/23 at 0814 Given 10/02/2023 6:16 AM CDT 10 mg Given 10/02/2023 12:06 AM CDT 10 mg Given 10/01/2023 6:52 PM CDT 10 mg piperacillin-tazobactam (ZOSYN) 4.5 g in sodium chloride 0.9 % 100 mL Extended Infusion 4.5 g, Intravenous, Administer over 240 Minutes, Q8H (NON-STND), First dose on Tue09/28/23 at 1900, Maintenance dosing should begin 4 hours after the initial bolus is given. This is an extended infusion given over 4 hours. When administering the same line as other medications, consult clinical resources or a pharmacist for compatibility questions. Choose Pip-Tazo 4 hr-EX INF in IV Smart Pump Started 09/29/2023 11:38 AM CDT 4.5 g Started 09/29/2023 3:47 AM CDT 4.5 g Started 09/28/2023 9:47 PM CDT 4.5 g polyethylene glycol (MIRALAX) oral powder 17 g 17 g, Oral, DAILY, First dose on Tue09/29/23 at 1115, Until Discontinued, Do not add to pre-thickened juices. Ok to add to liquid thickened with Thicken-Up. Given 09/30/2023 9:00 AM CDT 17 g Given 09/29/2023 11:40 AM CDT 17 g polyethylene glycol (MIRALAX) oral powder 17 g 17 g, Oral, DAILY PRN, Constipation, Starting on Tue09/30/23 at 1545, Until Tue10/05/23 at 1727, Do not add to pre-thickened juices. Ok to add to liquid thickened with Thicken-Up. Given 10/01/2023 10:44 AM CDT 17 g prochlorperazine (COMPAZINE) injection 5 mg 5 mg, Intravenous, Q6H PRN, Nausea, Vomiting, Starting on Tue09/30/23 at 0607, Until Tue10/05/23 at 1727, Give 1st line medications, then 2nd line, then 3rd line. Progress to next line if medication is ineffective after 15 minutes, or has been previously ineffective, or if a medication for a line is not ordered. May use medication from any line if patient preference indicates. If 3rd line agent is ineffective, call Practitioner. If unable to give IV medications contact Practitioner. Aromatherapy may be used at any time as adjunct therapy. 1st Line - ondansetron (give ondansetron ODT (oral) if able to take oral, otherwise give IV) 2nd Line -prochlorperazine 3rd Line - metoclopramide Given 10/01/2023 12:45 PM CDT 5 mg Given 09/30/2023 8:03 PM CDT 5 mg senna (SENOKOT) tablet 2 Tablet 2 Tablet, Oral, BID, First dose on Tue09/29/23 at 1115, Until Discontinued, as laxative/stimulant agent Given 10/02/2023 9:00 AM CDT 2 Tablets Given 10/01/2023 10:16 PM CDT 2 Tablets Given 10/01/2023 10:00 AM CDT 2 Tablets sodium chloride 0.9% bolus 1,000 mL 1,000 mL, Intravenous, Administer over 0.5 Hours, ONCE, On Tue09/28/23 at 1715, For 1 dose Started 09/28/2023 5:13 PM CDT 1,000 mL sodium chloride 0.9% infusion 1,000 mL, Intravenous, at 500 mL/hr, ONCE, On Tue10/03/23 at 1045, For 1 dose Started 10/03/2023 12:00 PM CDT 1,000 mL 500 mL/hr sodium chloride 0.9% injection 10 mL 10 mL, Intravenous, Q24H, First dose on 10/01/23 at 2230, Until Discontinued, Line patency, for each unused lumen. Line flush orders for PICC Given 10/04/2023 10:26 PM CDT 10 mL Given 10/04/2023 12:37 AM CDT 10 mL Given 10/02/2023 11:15 PM CDT 10 mL sodium chloride 0.9% injection 10 mL 10 mL, Intravenous, PRN PER PARAMETERS, Line Patency, for each unused lumen, Starting on 10/01/23 at 2212, Until Tue10/05/23 at 1727, Line flush orders for PICC sodium chloride 0.9% injection 20 mL 20 mL, Intravenous, PRN PER PARAMETERS, Line Patency, after blood draws or TPN, Starting on 10/01/23 at 2212, Until Tue10/05/23 at 1727, Line flush orders for PICC traMADol (ULTRAM) tablet 50 mg 50 mg, Oral, Q6H PRN, Pain, Starting on Noy 09/29/23 at 1000, Until Tue09/30/23 at 1524 Given 09/30/2023 9:00 AM CDT 50 mg Given 09/30/2023 2:55 AM CDT 50 mg Given 09/29/2023 8:32 PM CDT 50 mg traZODone (DESYREL) tablet 200 mg 200 mg, Oral, HS, First dose on Tue09/30/23 at 2100, Until Discontinued Given 10/04/2023 8:54 PM CDT 200 mg Given 10/03/2023 9:18 PM CDT 200 mg Given 10/02/2023 8:48 PM CDT 200 mg valACYclovir (VALTREX) tablet 1,000 mg 1,000 mg, Oral, TID, First dose on 10/01/23 at 2000, Indications: Herpes Simplex Virus Meningitis Given 10/01/2023 10:17 PM CDT 1,000 mg vancomycin (VANCOCIN) 1,250 mg in sodium chloride 0.9 % 250 mL IVPB 1,250 mg, Intravenous, Administer over 90 Minutes, Q12H (NON-STND), First dose on Tue09/29/23 at 0300 Started 09/29/2023 3:48 AM CDT 1,250 mg 166.67 mL/hr varenicline (CHANTIX) tablet 1 mg 1 mg, Oral, BID WITH MEALS, First dose on Tue09/30/23 at 1700, Until Discontinued, Give with meals and with a full glass of water. Given 10/05/2023 8:58 AM CDT 1 mg Given 10/04/2023 5:26 PM CDT 1 mg Given 10/04/2023 7:59 AM CDT 1 mg documented in this encounter Active and Recently Administered Medications Times are shown in CDT. Scheduled Medication Order 10/03/2023 10/04/2023 10/05/2023 acetaminophen (TYLENOL) tablet 325 mg 325 mg, Oral, Q6H (NON-STND), First dose (after last modification) on Tue10/02/23 at 1100, Until Discontinued, Do not give two acetaminophen containing medications within 4 hours of each other. No more than 4 grams APAP per 24 hours from all sources. 0615 (Given - Provider: Guillermina Navarro RN)1121 (Given - Provider: Hattie Rosas RN)1723 (Given - Provider: Hattie Rosas RN) 0026 (Given - Provider: Felicita Ackerman RN)0548 (Given - Provider: Felicita Ackerman RN)1148 (Given - Provider: Fede Baez RN)1726 (Given - Provider: Fede Baez RN) 0004 (Given - Provider: Helio Branham RN)0616 (Given - Provider: Helio Branham RN)1107 (Given - Provider: Ashwini Pantoja RN) cefTRIAXone (ROCEPHIN) 2 g in sodium chloride 0.9 % 100 mL IVPB 2 g, Intravenous, Administer over 30 Minutes, Q12H (NON-STND), First dose on Tue09/30/23 at 1700, Do NOT infuse in same line with Lactated Ringers (LR), TPN, or other calcium-containing IV solutions due to incompatibility. 1121 (Started - Provider: Hattie Rosas, RN)1200 (Infused - Provider: Hattie Rosas, RN) 0028 (Started - Provider: Felicita Ackerman, RN)0200 (Infused - Provider: Felicita Ackerman, RN)1149 (Started - Provider: Fede Baez, IRINA)1223 (Infused - Provider: Fede Baez, RN)2222 (Started - Provider: Leticia French, IRINA) 0004 (Infused - Provider: Helio Branham, IRINA)1118 (Started - Provider: Ashwini Pantoja, IRINA)1150 (Infused - Provider: Ashwini Pantoja, IRINA) emollient (AQUAPHOR) ointment Topical, TID, First dose (after last modification) on Tue10/04/23 at 1000, Apply topically to Face Crusts and dry areas. 1150 (Given - Provider: Fede Baez RN)2105 (Given - Provider: Leticia French RN) 0900 (Given - Provider: Ashwini Pantoja, IRINA)1500 (Given - Provider: Ashwini Pantoja, IRINA) enoxaparin (LOVENOX) prefilled syringe 40 mg 40 mg, Subcutaneous, Q24H, First dose on Tue09/29/23 at 1215, Until Discontinued, Inject subcutaneously into abdominal tissue ??only. HIGH ALERT medication, On hold since Tue10/04/2023 at 1205 until manually unheld 1215 (Automatically Held - Provider: Lubna Sommer PA-C) 0815 (Unheld by provider in Manage Orders - Provider: Lexis Simpson PA-C - Reason: Other-Give dose at next scheduled time as shown above)1205 (Held by provider in Manage Orders - Provider: Lexis Simpson PA-C - Reason: Per Practitioner: Pre-procedure hold, practitioner must Unhold after procedure )1215 (Automatically Held - Provider: Lexis Simpson PA-C) 1215 (Automatically Held - Provider: Lexis Simpson PA-C)1727 (Unheld by provider in Manage Orders - Provider: Md Mook Magdal[facility]) famotidine (PEPCID) tablet 20 mg 20 mg, Oral, BID AC, First dose on Tue09/29/23 at 0700, Until Discontinued 0616 (Given - Provider: Guillermina Navarro, IRINA)1535 (Given - Provider: Hattie Rosas RN) 0659 (Given - Provider: Felicita Ackerman, IRINA)1726 (Given - Provider: Fede Baez, IRINA) 0616 (Given - Provider: Helio Branham RN) gabapentin (NEURONTIN) capsule 200 mg 200 mg, Oral, TID, First dose on Tue10/03/23 at 1400, Until Discontinued 1534 (Given - Provider: Hattie Rosas RN)2118 (Given - Provider: Hattie Rosas RN) 0759 (Given - Provider: Fede Baez, IRINA)1355 (Given - Provider: Fede Baez RN)2053 (Given - Provider: Leticia French RN) 0858 (Given - Provider: Ashwini Pantoja RN)1340 (Given - Provider: Nury Devine RN) levETIRAcetam (KEPPRA) tablet 500 mg 500 mg, Oral, BID, First dose on Tue10/01/23 at 1315, Until Discontinued 0852 (Given - Provider: Hattie Rosas RN)2118 (Given - Provider: Hattie Rosas RN) 0759 (Given - Provider: Fede Baez RN)2054 (Given - Provider: Leticia French RN) 0858 (Given - Provider: Ashwini Pantoja RN) mupirocin (BACTROBAN) 2 % ointment Topical, TID, First dose on Tue09/29/23 at 1400, Apply topically to forehead, cheeks, face Hazardous waste disposal required. 0853 (Given - Provider: Hattie Rosas RN)1400 (Given - Provider: Hattie Rosas RN)2120 (Given - Provider: Hattie Rosas RN) 0759 (Given - Provider: Fede Baez RN)1401 (Given - Provider: Fede Baez RN)2105 (Given - Provider: Leticia French RN) 0900 (Not Given - Provider: Ashwini Pantoja RN - Reason: Patient/family refused)1345 (Not Given - Provider: Ashwini Pantoja RN - Reason: Patient/family refused) senna (SENOKOT) tablet 2 Tablet 2 Tablet, Oral, BID, First dose on Noy 09/29/23 at 1115, Until Discontinued, as laxative/stimulant agent 0852 (Not Given - Provider: Hattie Rosas RN - Reason: Patient/family refused)212 (Not Given - Provider: Hattie Rosas RN - Reason: Patient/family refused) 08 (Not Given - Provider: Fede Baez RN - Reason: Patient/family refused)2055 (Not Given - Provider: Leticia French RN - Reason: Order parameters not met) 0858 (Not Given - Provider: Ashwini Pantoja RN - Reason: Order parameters not met) sodium chloride 0.9% infusion (COMPLETED) 1,000 mL, Intravenous, at 500 mL/hr, ONCE, On 10/03/23 at 1045, For 1 dose 1200 (Started - Provider: Hattie Rosas RN) sodium chloride 0.9% injection 10 mL 10 mL, Intravenous, Q24H, First dose on Tue10/01/23 at 2230, Until Discontinued, Line patency, for each unused lumen. Line flush orders for PICC 0037 (Given - Provider: Felicita Ackerman RN)2225 (Given - Provider: Leticia French, IRINA) traZODone (DESYREL) tablet 200 mg 200 mg, Oral, HS, First dose on Tue09/30/23 at 2100, Until Discontinued 2117 (Given - Provider: Hattie Rosas RN) 2053 (Given - Provider: Leticia French RN) varenicline (CHANTIX) tablet 1 mg 1 mg, Oral, BID WITH MEALS, First dose on Tue09/30/23 at 1700, Until Discontinued, Give with meals and with a full glass of water. 0852 (Given - Provider: Hattie Rosas RN)1723 (Given - Provider: Hattie Rosas RN) 0759 (Given - Provider: Fede Baez, IRINA)172 (Given - Provider: Fede Baez RN) 0858 (Given - Provider: Ashwini Pantoja RN) PRN Medication Order 10/03/2023 10/04/2023 10/05/2023 bisacodyl (DULCOLAX) rectal suppository 10 mg 10 mg, Rectal, DAILY PRN, Constipation, Starting on Tue09/29/23 at 1055, Until Tue10/05/23 at 1727 hydrOXYzine pamoate (VISTARIL) capsule 50 mg 50 mg, Oral, Q6H PRN, Other, Pain, Starting on Tue09/28/23 at 2122, Until Tue10/05/23 at 1727 0201 (Given - Provider: Guillermina Navarro RN)0853 (Given - Provider: Hattie Rosas RN)1534 (Given - Provider: Hattie Rosas RN)2329 (Given - Provider: Hattie Rosas RN) 0549 (Given - Provider: Felicita Ackerman RN)1149 (Given - Provider: Fede Baez RN)1734 (Given - Provider: Fede Baez RN) 0005 (Given - Provider: Helio Branham RN)0617 (Given - Provider: Helio Branham RN)1340 (Given - Provider: Nury Devine RN) ketorolac (TORADOL) injection 15 mg () 15 mg, Intravenous, Q6H PRN, Pain, Starting on Tue10/03/23 at 1324, Until Tue10/05/23 at 1323, For 48 hours 1452 (Given - Provider: Hattie Rosas RN) 0044 (Given - Provider: Felicita Ackerman RN)0659 (Given - Provider: Felicita Ackerman RN)1925 (Given - Provider: Fede Baez RN) 0220 (Given - Provider: Helio Branham RN)1049 (Given - Provider: Ashwini Pantoja RN) methocarbamol (ROBAXIN) tablet 500 mg 500 mg, Oral, QID PRN, Muscle Spasms, Starting on Tue09/28/23 at 2122, Until Tue10/05/23 at 1727 0201 (Given - Provider: Guillermina Navarro RN)0852 (Given - Provider: Hattie Rosas RN)1534 (Given - Provider: Hattie M Rosas, RN)2330 (Given - Provider: Hattie Rosas RN) 0549 (Given - Provider: Felicita Ackerman, RN)1149 (Given - Provider: Fede Baez, RN)1734 (Given - Provider: Fede Baez, RN) 0005 (Given - Provider: Helio Branham, RN)0617 (Given - Provider: Helio Branham, RN)1340 (Given - Provider: Nury Devine RN) metoclopramide (REGLAN) injection 5 mg(Linked Group 1) 5 mg, Intravenous, Q6H PRN, Nausea, Vomiting, Starting on Tue09/30/23 at 0607, Until Tue10/05/23 at 1727, Give 1st line medications, then 2nd line, then 3rd line. Progress to next line if medication is ineffective after 15 minutes, or has been previously ineffective, or if a medication for a line is not ordered. May use medication from any line if patient preference indicates. If 3rd line agent is ineffective, call Practitioner. If unable to give IV medications contact Practitioner. Aromatherapy may be used at any time as adjunct therapy. 1st Line - ondansetron (give ondansetron ODT (oral) if able to take oral, otherwise give IV) 2nd Line -prochlorperazine 3rd Line - metoclopramide naloxone (NARCAN) injection 0.2 mg 0.2 mg, Intravenous, PRN PER PARAMETERS, Opioid Reversal, Excessive Sedation/Respiratory Rate less than 8 breaths per minute.? Notify Practitioner if given., Starting on Tue09/28/23 at 2122, Until Tue10/05/23 at 1727, Excessive Sedation/Respiratory Rate less than 8 breaths per minute.? Notify Practitioner if given. ondansetron (ZOFRAN) injection 4 mg(Linked Group 1) 4 mg, Intravenous, Q6H PRN, Nausea, Vomiting, Other, If unable to take ODT ondansetron, Starting on Tue09/30/23 at 0607, Until Tue10/05/23 at 1727, Give 1st line medications, then 2nd line, then 3rd line. Progress to next line if medication is ineffective after 15 minutes, or has been previously ineffective, or if a medication for a line is not ordered. May use medication from any line if patient preference indicates. If 3rd line agent is ineffective, call Practitioner. If unable to give IV medications contact Practitioner. Aromatherapy may be used at any time as adjunct therapy. 1st line: ondansetron (give ondansetron ODT (oral) if able to take oral, otherwise give IV) 2nd line: prochlorperazine 3rd line: metoclopramide ondansetron (ZOFRAN-ODT) disintegrating tablet 4 mg(Linked Group 1) 4 mg, Oral, Q6H PRN, Vomiting, Nausea, Starting on Tue09/30/23 at 0607, Until Tue10/05/23 at 1727, Give 1st line medications, then 2nd line, then 3rd line. Progress to next line if medication is ineffective after 15 minutes, or has been previously ineffective, or if a medication for a line is not ordered. May use medication from any line if patient preference indicates. If 3rd line agent is ineffective, call Practitioner. If unable to give IV medications contact Practitioner. Aromatherapy may be used at any time as adjunct therapy. 1st line: ondansetron (give ondansetron ODT (oral) if able to take oral, otherwise give IV) 2nd line: prochlorperazine 3rd line: metoclopramide oxyCODONE (ROXICODONE) immediate release tablet 10 mg 10 mg, Oral, Q4H PRN, Pain, Starting on Tue10/02/23 at 0810, Until Tue10/05/23 at 1727 0312 (Given - Provider: Guillermina Navarro RN)0741 (Given - Provider: Hattie Rosas RN)1130 (Given - Provider: Hattie Rosas RN)1723 (Given - Provider: Hattie Rosas RN)2124 (Given - Provider: Hattie Rosas RN) 0149 (Given - Provider: Felicita Ackerman, IRINA)0550 (Given - Provider: Felicita Ackerman RN)0950 (Given - Provider: Fede Baez RN)1356 (Given - Provider: Fede Baez, IRINA)1734 (Given - Provider: Fede Baez, IRINA)2147 (Given - Provider: Leticia French RN) 0220 (Given - Provider: Helio Branham RN)0620 (Given - Provider: Helio Branham RN)1107 (Given - Provider: Ashwini Pantoja, RN)1516 (Given - Provider: Ashwini Pantoja, IRINA) polyethylene glycol (MIRALAX) oral powder 17 g 17 g, Oral, DAILY PRN, Constipation, Starting on Tue09/30/23 at 1545, Until Tue10/05/23 at 1727, Do not add to pre-thickened juices. Ok to add to liquid thickened with Thicken-Up. prochlorperazine (COMPAZINE) injection 5 mg(Linked Group 1) 5 mg, Intravenous, Q6H PRN, Nausea, Vomiting, Starting on Tue09/30/23 at 0607, Until Tue10/05/23 at 1727, Give 1st line medications, then 2nd line, then 3rd line. Progress to next line if medication is ineffective after 15 minutes, or has been previously ineffective, or if a medication for a line is not ordered. May use medication from any line if patient preference indicates. If 3rd line agent is ineffective, call Practitioner. If unable to give IV medications contact Practitioner. Aromatherapy may be used at any time as adjunct therapy. 1st Line - ondansetron (give ondansetron ODT (oral) if able to take oral, otherwise give IV) 2nd Line -prochlorperazine 3rd Line - metoclopramide sodium chloride 0.9% injection 10 mL 10 mL, Intravenous, PRN PER PARAMETERS, Line Patency, for each unused lumen, Starting on 10/01/23 at 2212, Until Tue10/05/23 at 1727, Line flush orders for PICC sodium chloride 0.9% injection 20 mL 20 mL, Intravenous, PRN PER PARAMETERS, Line Patency, after blood draws or TPN, Starting on 10/01/23 at 2212, Until Tue10/05/23 at 1727, Line flush orders for PICC Linked Groups Order Group 1: ondansetron (ZOFRAN-ODT) disintegrating tablet 4 mgJump to med 4 mg, Oral, Q6H PRN, Vomiting, Nausea, Starting on Tue09/30/23 at 0607, Until Tue10/05/23 at 1727, Give 1st line medications, then 2nd line, then 3rd line. Progress to next line if medication is ineffective after 15 minutes, or has been previously ineffective, or if a medication for a line is not ordered. May use medication from any line if patient preference indicates. If 3rd line agent is ineffective, call Practitioner. If unable to give IV medications contact Practitioner. Aromatherapy may be used at any time as adjunct therapy. 1st line: ondansetron (give ondansetron ODT (oral) if able to take oral, otherwise give IV) 2nd line: prochlorperazine 3rd line: metoclopramide And ondansetron (ZOFRAN) injection 4 mgJump to med 4 mg, Intravenous, Q6H PRN, Nausea, Vomiting, Other, If unable to take ODT ondansetron, Starting on Tue09/30/23 at 0607, Until Tue10/05/23 at 1727, Give 1st line medications, then 2nd line, then 3rd line. Progress to next line if medication is ineffective after 15 minutes, or has been previously ineffective, or if a medication for a line is not ordered. May use medication from any line if patient preference indicates. If 3rd line agent is ineffective, call Practitioner. If unable to give IV medications contact Practitioner. Aromatherapy may be used at any time as adjunct therapy. 1st line: ondansetron (give ondansetron ODT (oral) if able to take oral, otherwise give IV) 2nd line: prochlorperazine 3rd line: metoclopramide And prochlorperazine (COMPAZINE) injection 5 mgJump to med 5 mg, Intravenous, Q6H PRN, Nausea, Vomiting, Starting on Tue09/30/23 at 0607, Until Tue10/05/23 at 1727, Give 1st line medications, then 2nd line, then 3rd line. Progress to next line if medication is ineffective after 15 minutes, or has been previously ineffective, or if a medication for a line is not ordered. May use medication from any line if patient preference indicates. If 3rd line agent is ineffective, call Practitioner. If unable to give IV medications contact Practitioner. Aromatherapy may be used at any time as adjunct therapy. 1st Line - ondansetron (give ondansetron ODT (oral) if able to take oral, otherwise give IV) 2nd Line -prochlorperazine 3rd Line - metoclopramide And metoclopramide (REGLAN) injection 5 mgJump to med 5 mg, Intravenous, Q6H PRN, Nausea, Vomiting, Starting on Tue09/30/23 at 0607, Until Tue10/05/23 at 1727, Give 1st line medications, then 2nd line, then 3rd line. Progress to next line if medication is ineffective after 15 minutes, or has been previously ineffective, or if a medication for a line is not ordered. May use medication from any line if patient preference indicates. If 3rd line agent is ineffective, call Practitioner. If unable to give IV medications contact Practitioner. Aromatherapy may be used at any time as adjunct therapy. 1st Line - ondansetron (give ondansetron ODT (oral) if able to take oral, otherwise give IV) 2nd Line -prochlorperazine 3rd Line - metoclopramide documented in this encounter Care Teams Breakdown Mill Operator Relationship Specialty Start Date End Date Svitlana Olmos MD [address] [place] [address] PCP - General 05/30/10 documented as of this encounter
--- OUTSIDE RECORDS SUMMARY | 2023-10-07 02:11 | XMS_ITS | Encounter Summary ---
Author Organization [facility] Address [address] [place] [address] Care Team Providers Care Cd Reactor Operator Head Name Role Phone Svitlana Olmos MD Primary Care Provider [phone] Encounter Details Date Type Department Care Team (Late st Contact Info) Description 09/23/2023 Notes/Orders [facility] [address] [place], [place] [phone] Chiquita Gaffney MD [address] [place], [place] [phone] Bradycardia (Primary Dx) Social History Tobacco Use Types Packs/Day Years Used Date Smoking Tobacco: Every Day Cigarettes 1 40.2 Started: 02/28/1979; Last attempted to quit: 05/30/2019 Smokeless Tobacco: Never Comments:Smoking History Pac ks/day: quit 06/13/2023 Alcohol Use Standard Drinks/Week Comments No 0 (1 standard drink = 0.6 oz pur e alcohol) [facility] Utilities Answer Date Recorded In the past 12 months has e [employer], gas, oil, or water [employer] threatened to shut off services in your [...] place to sleep or slept in a fci (including now)? No 09/29/2023 Sex and Gender Information Value Date Recorded Sex Assigned at Not on file Gender Identity Not on file Sexual Orientation Not on file documented as of this encounter Plan of Treatment Upcoming Encounters Date Type Department Care Team (Late st Contact Info) Description 10/12/2023 9:00 AM CDT Appointment [facility] [address] [address] Svitlana Olmos MD [address] [place] [address] Hospital Discharge Follow-up 10/20/2023 10:30 AM CDT Appointment [facility] Neurosurgery[facility]Ortho Spine [address] [place] [address] 12/06/2023 10:20 AM CDT Appointment [facility] [address] 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 [facility] Dental [facility] [address] [place], [place] [phone] [facility] [address] [place], [place] [phone] documented as of this encounter Procedures Procedure Name Priority Date/Time Associated Diagnosis Comments MANUEL W MAILOUT Routine 09/28/2023 11:59 PM CDT Bradycardia documented in this encounter Results * MANUEL W MAILOUT [id number] (09/28/2023 11:59 PM CDT) 09/28/2023 11:5 9 PM CDT Narrative ALICE HAMILTON - 10/03/2023 1:54 PM CDT 4d 7h [...] 10/03/2023 1:54:19 PM Chiquita Smith MD CARDIOLOGY/AR [facility] [address] [place] [address] documented in this encounter Visit Diagnoses Diagnosis Bradycardia- Primary Other specified cardiac dysrhythmias Recurrent cold sores Herpes simplex without mention of complication documented in this encounter Care Teams Cd Reactor Operator Head Relationship Specialty Start Date End Date Svitlana Olmos MD [address] [place] [address] PCP - General 05/30/10 documented as of this encounter
--- OUTSIDE RECORDS SUMMARY | 2023-10-07 02:11 | XMS_ITS | Encounter Summary ---
Author Organization [facility] Address [address] [address] Care Team Providers Care Corporate Travel Counselor Name Role Phone Svitlana Olmos MD Primary Care Provider [phone] Encounter Details Date Type Department Care Team (Late st Contact Info) Description 09/28/2023 Partner ED HIM DEPARTMENT Provider, [place] [address] [facility] 09/28/2023 Social History Tobacco Use Types Packs/Day Years Used Date Smoking Tobacco: Every Day Cigarettes 1 40.2 Started: 02/28/1979; Last attempted to quit: 05/30/2019 Smokeless Tobacco: Never Comments:Smoking History Pac ks/day: quit 06/13/2023 Alcohol Use Standard Drinks/Week Comments No 0 (1 standard drink = 0.6 oz pur e alcohol) [facility] Utilities Answer Date Recorded In the past 12 months has [employer], gas, oil, or water [employer] threatened to shut off services in your [...] in a nursing home (including now)? No 09/29/2023 Sex and Gender Information Value Date Recorded Sex Assigned at Not on file Gender Identity Not on file Sexual Orientation Not on file documented as of this encounter Plan of Treatment Upcoming Encounters Date Type Department Care Team (Late st Contact Info) Description 10/12/2023 9:00 AM CDT Appointment [facility] [address] [id number] Svitlana Olmos MD [address] [place] [address] Hospital Discharge Follow-up 10/20/2023 10:30 AM CDT Appointment [facility] Neurosurgery[facility]Ortho Spine [address] [place] [address] 12/06/2023 10:20 AM CDT Appointment [facility]surgery[facility]tho Spine [address] [place] [address] Jg Munguia MD [address] [place] [address] 01/03/2024 11:20 AM LIGHTHOUSE KEEPER Appointment [facility] [id number] [place] [phone] [facility] [address] [place] [address] documented as of this encounter Visit Diagnoses Not on filedocumented in this encounter Care Teams Corporate Travel Counselor Relationship Specialty Start Date End Date Svitlana Olmos MD [address] [place] [address] PCP - General 05/30/10 documented as of this encounter
--- OUTSIDE RECORDS SUMMARY | 2023-10-07 02:11 | XMS_ITS | Encounter Summary ---
Author Organization [facility] Address [address] [place] [address] Care Team Providers Care Financial Systems Administrator Name Role Phone Svitlana Olmos MD Primary Care Provider [phone] Reason for Visit * Auth/Cert (Routine) Specialty Diagnoses / Procedures Referred By Contac t Referred To Contact Diagnoses Infection following a procedure, other surgical site, initial encounter Postoperative infection, unspecified type, initial encounter facial & eye swelling, throbbing MURILLO Postoperative infection, unspecified type, initial encounter Referral ID Status Reason Start Date Expiration Date Visits Re quested Visits Authorized [id number] 1 1 Encounter Details Date Type Department Care Team (Late st Contact Info) Description 10/01/2023 10:55 PM CDT Ancillary Procedure [facility] [address] [place] [address] Social History Tobacco Use Types Packs/Day Years Used Date Smoking Tobacco: Every Day Cigarettes 1 40.2 Started: 02/28/1979; Last attempted to quit: 05/30/2019 Smokeless Tobacco: Never Comments:Smoking History Pac ks/day: quit 06/13/2023 Alcohol Use Standard Drinks/Week Comments No 0 (1 standard drink = 0.6 oz pur e alcohol) [facility] Utilities Answer Date Recorded In [...] to sleep or slept in a senior care (including now)? No 09/29/2023 Sex and Gender Information Value Date Recorded Sex Assigned at Not on file Gender Identity Not on file Sexual Orientation Not on file documented as of this encounter Plan of Treatment Upcoming Encounters Date Type Department Care Team (Late st Contact Info) Description 10/12/2023 9:00 AM CDT Appointment [facility] [address] [address] Svitlana Olmos MD [address] [place] [address] Hospital Discharge Follow-up 10/20/2023 10:30 AM CDT Appointment [facility] Neurosurgery/Ortho Spine [address] [place] [address] 12/06/2023 10:20 AM CDT Appointment [facility] Neurosurgery/Ortho Spine [address] [place] [address] Jg Munguia MD [address] [place] [address] 01/03/2024 11:20 AM ASSISTANT TEACHER Appointment [facility] Dental [facility] [address] [place], [place] [phone] Latha [facility] [address] [place], [place] [phone] documented as of this encounter Procedures Procedure Name Priority Date/Time Associated Diagnosis Comments XR PORTABLE CHEST 1 VIEW STAT 10/01/2023 11:34 PM CDT documented in this encounter Results * XR Portable Chest 1 View (10/01/2023 11:34 PM CDT) Anatomical Region Laterality Modality Chest, Lung Computed Radiogr aphy 10/01/2023 11:3 4 PM CDT Narrative 10/01/2023 11:36 PM CDT EXAM: XR PORTABLE CHEST 1 VIEW LOCATION: [facility] DATE: 10/01/2023 INDICATION: PICC placement, LINE/TUBE PLACEMENT COMPARISON: None. IMPRESSION: Heart size at upper limits normal for portable technique. Right chest port catheter tip at mid SVC level. Probable calcified left central granuloma. No visible pneumothorax or pleural effusion. Procedure Note Frank Stokes MD - 10/01/2023 EXAM: XR PORTABLE CHEST 1 VIEW LOCATION: [facility] DATE: 10/01/2023 INDICATION: PICC placement, LINE/TUBE PLACEMENT COMPARISON: None. IMPRESSION: Heart size at upper limits normal for portable technique.Right chest port catheter tip at mid SVC level. Probable calcified leftcentral granuloma. No visible pneumothorax or pleural effusion. Lubna Sommer PA-C RAD PORTABLE documented in this encounter Visit Diagnoses Not on filedocumented in this encounter Care Teams Financial Systems Administrator Relationship Specialty Start Date End Date Svitlana Olmos MD [address] [place] [address] PCP - General 05/30/10 documented as of this encounter
--- OUTSIDE RECORDS SUMMARY | 2023-10-07 02:11 | XMS_ITS | Encounter Summary ---
Author Organization [facility] Address [address] [place] [address] Care Team Providers Care Shank Stapler Name Role Phone Svitlana Olmos MD Primary Care Provider [phone] Reason for Referral * Procedure/Equipment (Routine) - New Request Specialty Diagnoses / Procedures Referred By Contac t Referred To Contact Diagnoses Meningioma (HRC) Procedures Hospital Bed - Electric Svitlana Olmos MD [address] [place] [address] Referral ID Status Reason Start Date Expiration Date V isits Requested Visits Authorized [id number] New Request 09/26/2023 03/24/2024 1 1 Reason for Visit * Reason Comments Other Encounter Details Date Type Department Care Team (Late st Contact Info) Description 09/26/2023 Telephone [facility] [address] [address] Svitlana Olmos MD [address] [place] [address] Other Social History Tobacco Use Types Packs/Day Years Used Date Smoking Tobacco: Every Day Cigarettes 1 40.2 Started: 02/28/1979; Last attempted to quit: 05/30/2019 Smokeless Tobacco: Never Comments:Smoking History Pac ks/day: quit 06/13/2023 Alcohol Use Standard Drinks/Week Comments No 0 (1 standard drink = 0.6 oz pur e alcohol) [facility] Utilities Answer Date Recorded In the past [...] place to sleep or slept in a mcc (including now)? No 09/14/2023 Sex and Gender Information Value Date Recorded Sex Assigned at Not on file Gender Identity Not on file Sexual Orientation Not on file documented as of this encounter Nursing Notes * Shanita Escamilla LPN - 09/26/2023 4:18 PM CDT Notified pt that order will be sent to [facility] and they should be in touch with her. * Svitlana Olmos MD - 09/26/2023 3:56 PM CDT I printed the order, need to sign it. Just need to know where she wants us to send it. Many of our patients down here use [facility]. * Shanita Escamilla LPN - 09/26/2023 3:22 PM CDT She has no preference but has names of possible companies: [employer], [employer], [employer], [employer]. Bed needs to be semi automatic. * [...] hours if possible. Please call today - [phone] documented in this encounter Plan of Treatment Upcoming Encounters Date Type Department Care Team (Late st Contact Info) Description 10/12/2023 9:00 AM CDT Appointment [facility] [address] [address] Svitlana Olmos MD [address] [place] [address] Hospital Discharge Follow-up 10/20/2023 10:30 AM CDT Appointment [facility] Neurosurgery/Ortho Spine [address] [place] [address] 12/06/2023 10:20 AM CDT Appointment [facility] Neurosurgery/Ortho Spine [address] 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
--- OUTSIDE RECORDS SUMMARY | 2023-10-07 02:11 | XMS_ITS | Encounter Summary ---
Author Organization [facility] Address [address] [place] [address] Care Team Providers Care Proposal Rep Name Role Phone Svitlana Olmos MD Primary Care Provider [phone] Reason for Visit * Auth/Cert (Routine) Specialty Diagnoses / Procedures Referred By Contac t Referred To Contact Diagnoses Infection following a procedure, other surgical site, initial encounter Postoperative infection, unspecified type, initial encounter facial & eye swelling, throbbing MURILLO Postoperative infection, unspecified type, initial encounter Referral ID Status Reason Start Date Expiration Date Visits Re quested Visits Authorized [id number] 1 1 Encounter Details Date Type Department Care Team (Latest Contact Info) Description 10/04/2023 2:00 PM CDT Ancillary Procedure [facility] [address] [place] [address] Social History Tobacco Use Types Packs/Day Years Used Date Smoking Tobacco: Every Day Cigarettes 1 40.2 Started: 02/28/1979; Last attempted to quit: 05/30/2019 Smokeless Tobacco: Never Comments:Smoking History Pac ks/day: quit 06/13/2023 Alcohol Use Standard Drinks/Week Comments No 0 (1 standard drink = 0.6 oz pur e alcohol) [facility] Utilities Answer Date Recorded In the [...] slept in a mcfp (including now)? No 09/29/2023 Sex and Gender Information Value Date Recorded Sex Assigned at Not on file Gender Identity Not on file Sexual Orientation Not on file documented as of this encounter Plan of Treatment Upcoming Encounters Date Type Department Care Team (Late st Contact Info) Description 10/12/2023 9:00 AM CDT Appointment [facility] [address] [address] Svitlana Olmos MD [address] [place] [address] Hospital Discharge Follow-up 10/20/2023 10:30 AM CDT Appointment [facility] Neurosurgery[facility]Ortho Spine [address] [facility] [place] [address] 12/06/2023 10:20 AM CDT Appointment [facility] Neurosurgery/Ortho Spine [address] [facility] [place], [place] [phone] Jg Munguia MD [address] [place], [place] [phone] 01/03/2024 11:20 AM SURGICAL TRAINING SPECIALIST Appointment [facility] Dental [facility] [address] [place], [place] [phone] [facility] [address] [address] [place], [place] [phone] documented as of this encounter Procedures Procedure Name Priority Date/Time Associated Diagnosis Comments IR INJECTION EPIDURAL BLOOD PATCH Routine 10/04/2023 2:29 PM CDT documented in this encounter Visit Diagnoses Not on filedocumented in this encounter Administered Medications Inactive Administered Medications - up to 3 most recent administrations Medication Order MAR Action Action Date Dose Rate Site iohexol (OMNIPAQUE 180) 180 MG/ML injection 1 mL 1 mL, Epidural, ONCE (NON-SCHEDULED), Starting on Tue10/04/23 at 1430, Until Tue10/04/23 at 1430, For 1 dose, Indications: epidural contrast Given 10/04/2023 2:30 PM CDT 1 mL documented in this encounter Care Teams Proposal Rep Relationship Specialty Start Date End Date Svitlana Olmos MD [address] [place] [address] PCP - General 05/30/10 documented as of this encounter
--- OUTSIDE RECORDS SUMMARY | 2023-10-07 02:11 | XMS_ITS | Encounter Summary ---
Author Organization [facility] Address [address] [place] [address] Care Team Providers Care Shanker Out Name Role Phone Svitlana Olmos MD Primary Care Provider [phone] Reason for Visit * Auth/Cert (Routine) Specialty Diagnoses / Procedures Referred By Contac t Referred To Contact Diagnoses Infection following a procedure, other surgical site, initial encounter Postoperative infection, unspecified type, initial encounter facial & eye swelling, throbbing MURILLO Postoperative infection, unspecified type, initial encounter Referral ID Status Reason Start Date Expiration Date Visits Re quested Visits Authorized [id number] 1 1 Encounter Details Date Type Department Care Team (Late st Contact Info) Description 10/01/2023 5:30 PM CDT Ancillary Procedure [facility] [address] [address] Social History Tobacco Use Types Packs/Day Years Used Date Smoking Tobacco: Every Day Cigarettes 1 40.2 Started: 02/28/1979; Last attempted to quit: 05/30/2019 Smokeless Tobacco: Never Comments:Smoking History Pac ks/day: quit 06/13/2023 Alcohol Use Standard Drinks/Week Comments No 0 (1 standard drink = 0.6 oz pur e alcohol) [facility] Utilities Answer Date Recorded In the [...] Appointment [facility] [address] [address] Svitlana Olmos MD [address] [place] [address] Hospital Discharge Follow-up 10/20/2023 10:30 AM CDT Appointment [facility] Neurosurgery/Ortho Spine [address] [facility] [place] [address] 12/06/2023 10:20 AM CDT Appointment [facility] Neurosurgery/Ortho Spine [address] [facility] [address] Jg Munguia MD [address] [place] [address] 01/03/2024 11:20 AM COPY MACHINE OPERATOR Appointment [facility] [address] [place], [place] [phone] [facility] [address] [place], [place] [phone] documented as of this encounter Procedures Procedure Name Priority Date/Time Associated Diagnosis Comments FL LUMBAR PUNCTURE (FOR CSF) Routine 10/01/2023 6:23 PM CDT documented in this encounter Results * FL Lumbar Puncture (For CSF) (10/01/2023 [...] advanced into the thecal sac at the L4-F7hsuyi. An opening pressure measurement of 18 cm [...] patient inprone position. Kev Rojas III, MD [facility] documented in this encounter Visit Diagnoses Not on filedocumented in this encounter Care Teams Shanker Out Relationship Specialty Start Date End Date Svitlana Olmos MD [address] [place] [address] PCP - General 05/30/10 documented as of this encounter
--- OUTSIDE RECORDS SUMMARY | 2023-10-07 02:11 | XMS_ITS | Encounter Summary ---
Author Organization [facility] Address [address] [place] [address] Care Team Providers Care Spinal Surgeon Name Role Phone Svitlana Olmos MD Primary Care Provider [phone] Reason for Visit * Reason Comments FOLLOW-UP,HOSPITAL Encounter Details Date Type Department Care Team (Late st Contact Info) Description 09/26/2023 Telephone [facility] [address] [address] [place], [place] [address] Candelaria Hernandez RN FOLLOW-UP,HOSPITAL Social History Tobacco Use Types Packs/Day Years Used Date Smoking Tobacco: Every Day Cigarettes 1 40.2 Started: 02/28/1979; Last attempted to quit: 05/30/2019 Smokeless Tobacco: Never Comments:Smoking History Pac ks/day: quit 06/13/2023 Alcohol Use Standard Drinks/Week Comments No 0 (1 standard drink = 0.6 oz pur e alcohol) [facility] Utilities Answer Date Recorded In the past 12 months has [employer], gas, oil, or water company threatened [...] see the Problem List for careplan and geriatric case managermarketing sales manager information. 09/26/2023, 4:14 PM documented in this encounter Plan of Treatment Upcoming Encounters Date Type Department Care Team (Late st Contact Info) Description 10/12/2023 9:00 AM CDT Appointment [facility] [address] [address] Svitlana Olmos MD [address] [place] [address] Hospital Discharge Follow-up 10/20/2023 10:30 AM CDT Appointment [facility] Neurosurgery/Ortho Spine [address] [facility] [place] [address] 12/06/2023 10:20 AM CDT Appointment [facility] Neurosurgery/Ortho Spine [address] [facility] [place] [address] Jg Munguia MD [address] [place] [address] 01/03/2024 11:20 AM ELECTRIC KNIFE OPERATOR Appointment [address] [place] [address] [facility] [address] [place], [place] [phone] documented as of this encounter Visit Diagnoses Not on filedocumented in this encounter Care Teams Spinal Surgeon Relationship Specialty Start Date End Date Svitlana Olmos MD [address] [place] [id number] PCP - General 05/30/10 documented as of this encounter
--- OUTSIDE RECORDS SUMMARY | 2023-10-07 02:11 | XMS_ITS | Encounter Summary ---
Author Organization [facility] Address [address] [place] [address] Care Team Providers Care Dianeticist Name Role Phone Svitlana Olmos MD Primary Care Provider [phone] Reason for Visit * Auth/Cert (Routine) Specialty Diagnoses / Procedures Referred By Contac t Referred To Contact Diagnoses Infection following a procedure, other surgical site, initial encounter Postoperative infection, unspecified type, initial encounter facial & eye swelling, throbbing MURILLO Postoperative infection, unspecified type, initial encounter Referral ID Status Reason Start Date Expiration Date Visits Re quested Visits Authorized [id number] 1 1 Encounter Details Date Type Department Care Team (Late st Contact Info) Description 10/01/2023 1:40 PM CDT Ancillary Procedure [facility] [address] [place] [address] [address] Social History Tobacco Use Types Packs/Day Years Used Date Smoking Tobacco: Every Day Cigarettes 1 40.2 Started: 02/28/1979; Last attempted to quit: 05/30/2019 Smokeless Tobacco: Never Comments:Smoking History Pac ks/day: quit 06/13/2023 Alcohol Use Standard Drinks/Week Comments No 0 (1 standard drink = 0.6 oz pur e alcohol) [facility] Utilities Answer Date Recorded In [...] place to sleep or slept in a penitentiary (including now)? No 09/29/2023 Sex and Gender Information Value Date Recorded Sex Assigned at Not on file Gender Identity Not on file Sexual Orientation Not on file documented as of this encounter Plan of Treatment Upcoming Encounters Date Type Department Care Team (Late st Contact Info) Description 10/12/2023 9:00 AM CDT Appointment [facility] [address] [address] Svitlana Olmos MD [address] [place] [address] Hospital Discharge Follow-up 10/20/2023 10:30 AM CDT Appointment [facility] Neurosurgery/Ortho Spine [address] [place] [place] [address] 12/06/2023 10:20 AM CDT Appointment [facility] Neurosurgery/Ortho Spine [address] [place] [place] [address] Jg Munguia MD [address] [place] [address] 01/03/2024 11:20 AM CYLINDER INSPECTOR AND TESTER Appointment [facility] Dental [facility] [address] [place], [place] [phone] [facility] [address] [place], [place] [phone] documented as of this encounter Procedures Procedure Name Priority Date/Time Associated Diagnosis Comments CT HEAD WO IV CONT STAT 10/01/2023 2: 19 PM CDT documented in this encounter Results * CT Head WO IV Cont (10/01/2023 2:19 PM CDT) Anatomical Region Laterality Modality Head Computed Tomogra phy 10/01/2023 2:19 PM CDT Narrative 10/01/2023 3:02 PM CDT EXAM: CT HEAD WO IV CONT [facility] DATE: 10/01/2023 INDICATION: Acute headache COMPARISON: [...] CT HEAD WO IV CONT LOCATION: [facility] DATE: 10/01/2023 INDICATION: Acute headache COMPARISON: [...] abnormality elsewhere. Lubna Sommer PA-C RAD CT documented in this encounter Visit Diagnoses Not on filedocumented in this encounter Care Teams Dianeticist Relationship Specialty Start Date End Date Svitlana Olmos MD [address] [place] [address] PCP - General 05/30/10 documented as of this encounter
--- OUTSIDE RECORDS SUMMARY | 2023-10-07 02:11 | XMS_ITS | Encounter Summary ---
Author Organization [facility] Address [address] [place] [address] Care Team Providers Care Children'S Librarian Name Role Phone Svitlana Olmos MD Primary Care Provider [phone] Encounter Details Date Type Department Care Team (Late st Contact Info) Description 09/23/2023 Notes/Orders [facility] [address] [place], [place] [phone] Chiquita Gaffney MD [address] [place], [place] [phone] Bradycardia (Primary Dx) Social History Tobacco Use Types Packs/Day Years Used Date Smoking Tobacco: Every Day Cigarettes 1 40.2 Started: 02/28/1979; Last attempted to quit: 05/30/2019 Smokeless Tobacco: Never Comments:Smoking History Pac ks/day: quit 06/13/2023 Alcohol Use Standard Drinks/Week Comments No 0 (1 standard drink = 0.6 oz pur e alcohol) [facility] Utilities Answer Date Recorded In the past 12 months has e [employer], gas, oil, or water [employer] threatened to shut off services in your [...] Appointment [facility] [address] [address] Svitlana Olmos MD [address] [place] [address] Hospital Discharge Follow-up 10/20/2023 10:30 AM CDT Appointment [facility] Neurosurgery/Ortho Spine [address] [place] [address] 12/06/2023 10:20 AM CDT Appointment [facility] Neurosurgery/Ortho Spine [address] [place] [address] Jg Munguia MD [address] [place], [place] [phone] 01/03/2024 11:20 AM DOUBLING MACHINE OPERATOR Appointment [facility] [address] [place] [address] L[facility] [address] [place], [place] [phone] documented as of this encounter Visit Diagnoses Diagnosis Bradycardia- Primary Other specified cardiac dysrhythmias Recurrent cold sores Herpes simplex without mention of complication documented in this encounter Care Teams Children'S Librarian Relationship Specialty Start Date End Date Svitlana Olmos MD [address] [place] [address] PCP - General 05/30/10 documented as of this encounter
--- OUTSIDE RECORDS SUMMARY | 2023-10-07 02:11 | XMS_ITS | Encounter Summary ---
Author Organization [facility] Address [address], [place] [address] Care Team Providers Care Structural Iron Erector Name Role Phone Svitlana Olmos MD Primary Care Provider [phone] Encounter Details Date Type Department Care Team (Late st Contact Info) Description 09/27/2023 E-Visit [facility] [place] Neurosurgery/Ortho Spine [address] [place] [address] Mycveronicat, [place] [address] Social History Tobacco Use Types Packs/Day Years Used Date Smoking Tobacco: Every Day Cigarettes 1 40.2 Started: 02/28/1979; Last attempted to quit: 05/30/2019 Smokeless Tobacco: Never Comments:Smoking History Pac ks/day: quit 06/13/2023 Alcohol Use Standard Drinks/Week Comments No 0 (1 standard drink = 0.6 oz pur e alcohol) [facility] Utilities Answer Date Recorded In the past 12 months has e electric, gas, oil, or water [employer] threatened to shut off services in your [...] Appointment [facility] [address] [address] Svitlana Olmos MD [address] [id number] Hospital Discharge Follow-up 10/20/2023 10:30 AM CDT Appointment [facility] Neurosurgery/Ortho Spine [address] [facility] [place] [phone] 12/06/2023 10:20 AM CDT Appointment [facility] Neurosurgery/Ortho Spine [address] [place] [place] [address] Jg Munguia MD [address] [place] [address] 01/03/2024 11:20 AM PERFORMANCE IMPROVEMENT ANALYST Appointment [facility] Dental [facility] [address] [place] [address] [facility] [address] [place] [address] documented as of this encounter Visit Diagnoses Not on filedocumented in this encounter Care Teams Structural Iron Erector Relationship Specialty Start Date End Date Svitlana Olmos MD [address] [place] [address] PCP - General 05/30/10 documented as of this encounter
--- OUTSIDE RECORDS SUMMARY | 2023-10-07 02:11 | XMS_ITS | Encounter Summary ---
Author Organization [facility] Address [address] [place] [address] Care Team Providers Care Dog Control Officer Name Role Phone Svitlana Olmos MD Primary Care Provider [phone] Reason for Visit * Reason Comments Nurse Visit Encounter Details Date Type Department Care Team (Latest Contact Info) Description 09/27/2023 12:20 PM CDT Office Visit [facility] Neurosurgery/Ortho Spine [address] [facility]. [place], [place] [id number] Infection (Primary Dx) Social History Tobacco Use Types Packs/Day Years Used Date Smoking Tobacco: Every Day Cigarettes 1 40.2 Started: 02/28/1979; Last attempted to quit: 05/30/2019 Smokeless Tobacco: Never Comments:Smoking History Pac ks/day: quit 06/13/2023 Alcohol Use Standard Drinks/Week Comments No 0 (1 standard drink = 0.6 oz pur e alcohol) [facility] Utilities Answer Date Recorded In the past 12 months has [employer], gas, oil, or water [employer] threatened to shut off services in your [...] place to sleep or slept in a chcf (including now)? No 09/14/2023 Sex and Gender [...] pool, hot tubs, or lakes. Please call [phone] with any signs of infection at incision [...] your understanding. Please call the Neurosurgery Center [phone] with any further questions or concerns. Thank [...] 9:00 AM CDT Appointment [facility] [place] [address] Svitlana Olmos MD [facility] [place] [address] Hospital Discharge Follow-up 10/20/2023 10:30 AM CDT Appointment [facility] Neurosurgery/Ortho Spine [address] [facility] [place] [address] 12/06/2023 10:20 AM CDT Appointment [facility] [address] [facility] [place] [address] Jg Munguia MD [address] [place] [address] 01/03/2024 11:20 AM PASTORAL ASSISTANT Appointment [facility] Dental [facility] [id number] [place] [address] Latha Burns [facility] [address] [place] [address] documented as of this encounter Results * (ABNORMAL) C-Reactive Protein (09/27/2023 1:44 PM CDT) C-Reactive Protein 6.0(H) 0.0 - 0.5 mg/dL 09/27/2023 7:37 PM CDT [facility] Blood Venipuncture / Unknown 09/27/2023 1:44 PM CDT 09/27/2023 1:44 PM CDT Jg Munguia MD LAB_1 [facility] [address] documented in this encounter Visit Diagnoses Diagnosis Infection- Primary Unspecified infectious and parasitic diseases Recurrent cold sores Herpes simplex without mention of complication documented in this encounter Care Teams Dog Control Officer Relationship Specialty Start Date End Date Svitlana Olmos MD [address] [place] [address] PCP - General 05/30/10 documented as of this encounter
--- OUTSIDE RECORDS SUMMARY | 2023-10-07 02:12 | XMS_ITS | Encounter Summary ---
Author Organization [facility] Address [address] [place] [address] Care Team Providers Care Lumber Loader Name Role Phone Svitlana Olmos MD Primary Care Provider [phone] Encounter Details Date Type Department Care Team (Latest Contact Info) Description 09/14/2023 Orders Only [facility] DEPARTMENT Provider, [place] [address] Social History Tobacco Use Types Packs/Day Years Used Date Smoking Tobacco: Every Day Cigarettes 1 40.2 Started: 02/28/1979; Last attempted to quit: 05/30/2019 Smokeless Tobacco: Never Comments:Smoking History Pac ks/day: quit 06/13/2023 Alcohol Use Standard Drinks/Week Comments No 0 (1 standard drink = 0.6 oz pur e alcohol) [facility] Utilities Answer Date Recorded In the past 12 months has [employer], gas, oil, or water [employer] threatened to shut off services in your [...] AM CDT Appointment [facility] [address] [place] [address] Svitlana Olmos MD [address] [place] [address] Hospital Discharge Follow-up 10/20/2023 10:30 AM CDT [facility]oint[facility]Orth[facility] Spine [address] [facility]. [place] [address] 12/06/2023 10:20 AM CDT [facility] [address] [facility]. [place] [address] Jg Munguia MD [address] [place] [address] 01/03/2024 11:20 AM SUPERVISOR RECEIVING AND PROCESSING [facility]ment [facility] [place] [address] [place], [place] [id number] Latha Burns [facility] [address] [place], [place] [id number] documented as of this encounter Procedures Procedure Name Priority Date/Time Associated Diagnosis Comments EKG 09/14/2023 documented in this encounter Results * EKG (09/14/2023) Interface Provider EKG documented in this encounter Visit Diagnoses Not on filedocumented in this encounter Care Teams Lumber Loader Relationship Specialty Start Date End Date Svitlana Olmos MD [address] [place] [address] PCP - General 05/30/10 documented as of this encounter
--- OUTSIDE RECORDS SUMMARY | 2023-10-07 02:12 | XMS_ITS | Encounter Summary ---
Author Organization [facility] Address [address] [address] Care Team Providers Care [employer] Name Role Phone Svitlana Olmos MD Primary Care Provider [phone] Reason for Referral * Procedure/Equipment (Routine) - New Request Specialty Diagnoses / Procedures Referred By Contac t Referred To Contact Diagnoses Meningioma (HRC) Hina Nielson PA-C [address] [place] [phone] Referral ID Status Reason Start Date Expiration Date V isits Requested Visits Authorized [id number] New Request 09/22/2023 12/21/2024 1 1 Scheduling Instructions Your clinician has recommended an appointment with [facility] Neurosurgery. You may call [phone], option 2 to schedule your appointment. Question Answer Appointment Urgency? Non-Urgent Patient should be seen by s/p eyebrow crani, follow up next (09/28) or the following Tuesday (10/03) for incision check with Dr. Munguia * Consult/Transfer Care (Routine) - New Request Specialty Diagnoses / Procedures Referred By Contac t Referred To Contact Diagnoses Bradycardia, sinus Juan Dudley MD [address] [place] [address] Referral ID Status Reason Start Date Expiration Date V isits Requested Visits Authorized [id number] New Request 09/22/2023 12/21/2023 1 1 Scheduling Instructions Your clinician has recommended an appointment with [facility] for your ongoing patient care. You can quickly make your appointment online at [employer]/schedule. You can also call [phone] for help scheduling your appointment. We suggest [...] MR Brain W/WO IV Svitlana Porter APRN SHELL CORE AND MOLDING SUPERVISOR [address] [place] [address] Referral ID Status Reason Start Date Expiration Date V isits Requested Visits Authorized [id number] Incomplete 12/15/2023 03/15/2025 1 1 * Procedure/Equipment (Routine) - New Request Specialty Diagnoses / Procedures Referred By Contgary seay Referred To Contact Diagnoses Bradycardia, sinus Chiquita Gaffney MD [address] [place] [id number] Referral ID Status Reason Start Date Expiration Date V isits Requested Visits Authorized [id number] New Request 09/19/2023 12/18/2024 1 1 Scheduling Instructions You will be contacted within a week by cardiology regarding your monitor netbackup administrator. This recommended service may not be covered by your insurance coverage. We suggest you call your health insurance company about your coverage and benefits for this appointment. Question Answer Appointment Urgency? Urgent (patient needs to be seen within one week) Location: [facility] Is patient appropriate candidate for self hookup of monitor? Yes Does this patient have a pacemaker No Diagnosis: Shortness of Breath, Other, please specify in comments Reason for visit? bradycardia, 1 weeks monitor * Procedure/Equipment (Routine) - Incomplete Specialty Diagnoses / Procedures Referred By Martir seay Referred To Contact Procedures MR Brain W/WO IV Hina Plata PA-C [address] [place] [id number] Referral ID Status Reason Start Date Expiration Date V isits Requested Visits Authorized [id number] Incomplete 09/14/2023 12/13/2024 1 1 Reason for Visit * Auth/Cert (Routine) Specialty Diagnoses / Procedures Referred By Martir seay Referred To Contact Diagnoses Meningioma (HRC) . Procedures Stealth guided Medial Eyebrow Craniotomy for Meningioma Resection. IMAGE GUIDANCE ADD ON NEURO (*) Referral ID Status Reason Start Date Expiration Date Visits Re quested Visits Authorized [id number] 1 1 Encounter Details Date Type Department Care Team (Latest Contact Info) Description 09/14/2023 4:48 AM CDT - 09/22/2023 3:23 PM CDT Hospital Encounter [id number] [address] [place] [address] Jg Munguia MD [address] [place] [id number] Bradycardia, sinus (Primary Dx); Meningioma (HRC); S/P craniotomy Discharge Disposition: Home Social History Tobacco Use Types Packs/Day Years Used Date Smoking Tobacco: Every Day Cigarettes 1 40.2 Started: 02/28/1979; Last attempted to quit: 05/30/2019 Smokeless Tobacco: Never Comments:Smoking History Pac ks/day: quit 06/13/2023 Alcohol Use Standard Drinks/Week Comments No 0 (1 standard drink = 0.6 oz pur e alcohol) [facility] Utilities Answer Date Recorded In the past 12 months has th e electric, gas, oil, or water [employer] threatened to shut off services in your [...] PRN Starting Tue09/28/2023, Oral, No Print/No Fill [place]-3 Fatty Acids (FISH OIL) 1000 MG capsule [...] Date: 12/14/24 If after 48 hours a [facility] material scheduler has not yet contacted you, please call [phone] to schedule your procedure. Prep instructions will be confirmed at time of scheduling. Your provider has recommended an appointment in MRI. Because MRI uses powerful magnets, the presence of metal in your body may be a safety hazard or affect a portion of the MRI image. Please inform the materials scheduler of any metal or electronic devices in your body and if you have a medical implant card, medical tech card, and/or device controller pleasebring it with [...] Call the Neurosurgery Clinic right away at [phone] if you have: *Any separation of the [...] Take good care, Heriberto Dudley MD (Voy-tek) [facility] Medicine Discharge Instructions to Patient Follow [...] extremities, please call the Neurosurgery clinic at [phone]. Discharge Follow-Up: Future Appointments Provider Department Center 10/03/2023 11:00 AM (Arrive by 10:45 AM) Svitlana Olmos MD [facility] 10/20/2023 10:30 AM NEUROSURGERY MIGUEL [facility] Neurosurgery/Ortho Spine [place] [address] 12/06/2023 10:20 AM Jg Munguia MD [facility] Neurosurgery/Ortho [address] 01/03/2024 11:[address]; EXAM [facility] Dental [facility] also instructed to call clinic or hospital [...] OR) Take 1 Tablet by mouth daily. famotidine (PEPCID) 20 MG tablet Take 1 Tablet (20 mg) by mouth two times a day before meals. 6 Tablet 09/21/2023 Garlic (ODOR FREE GARLIC) 100 MG Take 1 Tablet (100 mg) by mouth daily. Do not start before September 28, 2023. 09/28/2023 Multiple Vitamins-Minerals (MULTIVITAMIN OR) Take 1 tablet by mouth daily (every 24 hours). 100 13 06/01/2005 [place]-3 Fatty Acids (FISH OIL) 1000 MG capsule [...] for refills only. 180 Tablet 3 05/25/2023 Cholecalciferol (VITAMIN D-3 OR) 09/28/2023 dexAMETHasone (DECADRON) 2 MG tablet Take 1 tablet (2 mg) by mouth twice daily on 09/21/23. Then, take 1 tablet (2 mg) daily on 09/22/23, then stop. 3 Tablet 09/20/2023 09/28/2023 hydrOXYzine pamoate (VISTARIL) 50 MG capsule Take 1 Capsule (50 mg) by mouth every 6 hours as needed for Pain. 16 Capsule 09/22/2023 09/26/2023 ibuprofen (MOTRIN) 600 MG tablet Take 1 Tablet (600 mg) by mouth every 6 hours as needed for Pain. Do not start before September 28, 2023. 09/28/2023 10/04/2023 levETIRAcetam (KEPPRA) 500 MG tablet Take 1 Tablet (500 mg) by mouth two times a day for 7 days. 14 Tablet 09/20/2023 10/06/2023 methocarbamol (ROBAXIN) 500 MG tablet Take 1 Tablet (500 mg) by mouth 4 times daily as needed. 30 Tablet 09/22/2023 09/26/2023 oxyCODONE (ROXICODONE) 5 MG immediate release tablet Take 1-2 Tablets (5-10 mg) by mouth every 6 hours as needed for Pain. 25 Tablet 09/22/2023 09/26/2023 documented as of this encounter Progress Notes * Juan Dudley MD - 09/22/2023 8:53 AM CDT [facility] General Medicine / Hospitalist Staff Progress Note Patient: Ruthann Rosas : 1965 PCP: Svitlana Olmos MD [facility]* ATT: Jg Munguia MD DOS: 09/22/2023 [...] Olmos MD References: Referral Connection Specialty Connection Brias Rodriguez Consult Page Question Answer Comment Appointment [...] monitor to review results. Take good care, Heribertoangelica Dudley MD (Voy-tek) [facility] Medicine Event Monitor References: Referral Connection Specialty Connection Brisa Rodriguez Consult Page Question Answer Comment Appointment Urgency? Urgent (patient needs to be seen within one week) Location: [facility] [place] Is patient appropriate candidate for self hookup [...] Department Center 10/20/2023 10:[address] [facility] [address] 12/06/2023 10:20 AM Jg Munguia MD [facility] [address] [address] 01/03/2024 11:20 AM Latha Burns, [facility] AV GD AV Dental Billing based on: Time Total time for the visit was 50 minutes including, but not limited to, nle-xnha-nx-face time spent reviewing records, counseling, and coordination of care. Heriberto (Marlo Dudley MD [facility] Medicine Medications: acetaminophen 1,000 mg Oral TID [...] mg Oral BID lidocaine 30 mL Intradermal Accounts Executive methocarbamol 500 mg Oral QID polyethylene glycol [...] Dudley MD - 09/21/2023 4:24 PM CDT [facility] General Medicine / Hospitalist Staff Progress Note Patient: Ruthann Rosas : 1965 PCP: Svitlana Olmos MD [facility]* ATT: Jg Munguia MD DOS: [...] Department Center 10/20/2023 10:[address] [facility] [place] [address] 12/06/2023 10:20 AM Jg Munguia MD [facility] [address] 01/03/2024 11:20 AM Latha Burns, [facility] AV GD AV Dental Billing based on: Time Total time for the visit was 50 minutes including, but not limited to, tyl-zerw-dh-face time spent reviewing records, counseling, and coordination of care. Heriberto (Marlo Dudley MD [facility] / [facility] Medicine Medications: acetaminophen 1,000 mg Oral [...] mg Oral BID lidocaine 30 mL Intradermal Accounts Executive methocarbamol 500 mg Oral QID polyethylene glycol [...] 240 ml Labs/imaging: CBC Recent Labs 09/16/23 0609/17/2362609/18/23 0909/19/23 0628 WBC 14.8* 11.0* 9.1 10.6* RBC 4.02 4.00 4.48 4.49 HGB 11.3* 11.3* 12.7 12.7 HCT 35.3 34.5* 38.8 38.3 MCV 87.8 86.3 86.6 85.3 MCH 28.1 28.3 28.3 28.3 MCHC 32.0 32.8 32.7 33.2 RDW 13.7 13.6 13.4 13.2 PLTS 204 211 221 266 BMP Recent Labs 09/16/23 0609/17/2362609/18/23 0909/19/23 0628 09/21/23 0629 SODIUM 140 139 [...] 09/14/23. Plan: - Neurosurgery primary - Appreciate [facility] assistance with management - Ok for floor [...] 450 x10(9)/L Final * Svitlana Bazan APRN, JASON - 09/20/2023 11:[address] [facility] Inpatient Neurosurgery Daily Progress Note Today's [...] with the above stated plan. Svitlana Bazan, ABSORBER OPERATOR, SHELL CORE AND MOLDING SUPERVISOR 09/20/2023, 11:28 AM Neurosurgery Service Pager [phone] Subjective: No Acute Events Overnight. Juwan reports [...] Dudley MD - 09/20/2023 9:39 AM CDT [facility] General Medicine / Hospitalist Staff Progress Note Patient: Ruthann Rosas : 1965 PCP: Svitlana Olmos MD [facility]* ATT: Jg Munguia MD DOS: 09/20/2023 LOS: [...] Department Center 10/20/2023 10:30 [facility] [place] [address] 12/06/2023 10:20 AM [facility] [place] [address] 01/03/2024 11:20 AM Latha Burns, RDH AV GD AV Dental Billing based on: Time Total time for the visit was 50 minutes including, but not limited to, zrv-lyrv-si-face time spent reviewing records, counseling, and coordination of care. Heriberto Dudley MD (Voy-tek) [facility] Medicine Medications: acetaminophen 1,000 mg Oral [...] mg Oral BID lidocaine 30 mL Intradermal Accounts Executive methocarbamol 500 mg Oral QID polyethylene glycol [...] 09/16/23 0629 09/17/23 0627 09/18/23 0909/19/23 0628 WBC 14.8* 11.0* 9.1 10.6* [...] 09/19/2023 8:14 AM CDT Neurosurgery Progress Note [facility] Date of service: 09/19/2023 Assessment 58 [...] 450 x10(9)/L Final * Therese Dela Cruz, ABSORBER OPERATOR, SHELL CORE AND MOLDING SUPERVISOR - 09/18/2023 8:05 AM CDT Neurosurgery Progress [...] the above stated plan Therese Dela Cruz, ABSORBER OPERATOR, SHELL CORE AND MOLDING SUPERVISOR, 09/18/2023, 8:06 AM Neurosurgery Pager# [phone] * Therese Dela Cruz APRN, CNP - [...] APRN, JASON, 09/17/2023, 12:28 PM Neurosurgery Pager# [phone] t * Hina Nielson PA-C - 09/16/2023 7:32 AM CDT Neurosurgery Progress Note [facility] Date of service: 09/16/2023 Assessment 58 [...] 09/15/2023 2:12 PM CDT Neurosurgery Progress Note [facility] Date of service: 09/15/2023 Assessment [...] Munguia MD - 09/14/2023 12:45 PM CDT [facility] Brief Operative Progress Note Surgery Date: [...] 1:31 PM CDTAssociated Order(s): INTERNAL MEDICINE CONSULT [facility] Medicine Consultation Date of Service: 09/19/2023 [...] monitor upon discharge (ordered) Chiquita Gaffney MD [facility] Medicine * Matthieu Mazariegos PA-C [...] - Tyelnol and oxycodone for pain - 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 [facility] admission 718: No acute events overnight. Some [...] no further BP issues. Billing based on [facility] MAXIMUS Ceja, FAAN Critical care neurology [phone] * Aretha Morales MBBS - 09/14/2023 9:43 [...] - Tyelnol and oxycodone for pain - PT/OT/[employer] BI CONSULTANT/Rehab Cardio: - BP above - Labetalol and [...] care. MAXIMUS Ceja, FAAN Critical care neurology [phone] CHIEF COMPLAINT: Post op tumor resection HISTORY [...] ICU Course: 09/13: Post op tumor resection. [facility] admission PAST MEDICAL HISTORY: Past Medical History: [...] 9:00 AM CDT Appointment [facility] JANET Pena [phone] Svitlana Olmos MD [facility] [place] JANET LYONS [id number] Hospital Discharge Follow-up 10/20/2023 10:30 AM CDT Appointment [facility] Neurosurgery/Ortho Spine [address] [facility] [place] [address] 12/06/2023 10:20 AM CDT Appointment [facility] Neurosurgery/Ortho Spine [address] [facility] [place] [address] Jg Munguia MD [address] [place] [address] 01/03/2024 11:20 AM COMMUNICATION ARTS LECTURER Appointment [facility] [address] [place] [address] [address] [place] [address] [place], [place] [id number] Scheduled Orders Name Type Priority Associated Diagnoses [...] - 180 mg/dL 09/22/2023 1:03 PM CDT [facility] Performing Location RCLab S104 09/22/2023 1:03 PM CDT [facility] Blood 09/22/2023 1:01 PM CDT 09/22/2023 1:03 PM CDT Jg Munguia MD LAB_1 Performing Organization Address [facility]/ZIP Co de Phone Number [address] * Glucose, Whole Blood POCT (09/22/2023 7:31 AM CDT) Glucose, Whole Blood 96 70 - 180 mg/dL 09/22/2023 7:32 AM CDT [facility] Performing Location RCLab S104 09/22/2023 7:32 AM CDT [facility] Blood 09/22/2023 7:31 AM CDT 09/22/2023 7:32 AM CDT Jg Munguia MD LAB_1 Performing Organization Address [facility]/ZIP Co de Phone Number [address] * Glucose, Whole Blood POCT (09/21/2023 9:43 PM CDT) Glucose, Whole Blood 111 70 - 180 mg/dL 09/21/2023 9:44 PM CDT [facility] Performing Location RCLab S104 09/21/2023 9:44 PM CDT [facility] Blood 09/21/2023 9:43 PM CDT 09/21/2023 9:44 PM CDT Jg Munguia MD LAB_[address] * Glucose, Whole Blood POCT (09/21/2023 5:04 PM CDT) Glucose, Whole Blood 105 70 - 180 mg/dL 09/21/2023 5:06 PM CDT [facility] Performing Location RCLab S104 09/21/2023 5:06 PM CDT [facility] Blood 09/21/2023 5:04 PM CDT 09/21/2023 5:05 PM CDT Jg Munguia MD LAB_[address] * Glucose, Whole Blood POCT (09/21/2023 2:07 PM CDT) Glucose, Whole Blood 127 70 - 180 mg/dL 09/21/2023 2:08 PM CDT [facility] Performing Location RCLab S104 09/21/2023 2:08 PM CDT [facility] Blood 09/21/2023 2:07 PM CDT 09/21/2023 2:08 PM CDT Jg Munguia MD LAB_[address] * Glucose, Whole Blood POCT (09/21/2023 8:12 AM CDT) Glucose, Whole Blood 97 70 - 180 mg/dL 09/21/2023 8:13 AM CDT [facility] Performing Location RCLab S104 09/21/2023 8:13 AM CDT [facility] Blood 09/21/2023 8:12 AM CDT 09/21/2023 8:13 AM CDT Jg Munguia MD LAB_[address] * Magnesium (09/21/2023 6:29 AM CDT) Magnesium 2.1 1.6 - 2.6 mg/dL 09/21/2023 7:08 AM [facility] Blood Venipuncture / Unknown 09/21/2023 6:29 AM CDT 09/21/2023 6:35 AM CDT Juan Dudley MD LAB_1 Performing Organization Address City/State/[facility] Co de Phone Number [address] * Basic Metabolic Panel (09/21/2023 6:29 AM CDT) Pathologist [facility] Sodium 136 136 - 145 mmol/L 09/21/2023 7:08 AM [facility] Potassium 4.5 3.5 - 5.1 mmol/L 09/21/2023 7:08 AM [facility] Chloride 104 98 - 109 mmol/L 09/21/2023 7:08 AM [facility] CO2 25 20 - 29 mmol/L 09/21/2023 7:08 AM [facility] Anion Gap 7 6 - 16 mmol/L 09/21/2023 7:08 AM [facility] Calcium 9.5 8.4 - 10.4 mg/dL 09/21/2023 7:08 AM [facility] BUN 17 7 - 26 mg/dL 09/21/2023 7:08 AM [facility] Creatinine 0.61 0.55 - 1.02 mg/dL 09/21/2023 7:08 AM [facility] Glucose 94 70 - 100 mg/dL 09/21/2023 7:08 AM [facility] Comment:The given reference range is for the fasting state. Non-fasting reference range for glucose is 70 - 180 mg/dL. GFR, Estimated >60 >60 mL/min/1.7 3m2 09/21/2023 7:08 AM [facility] Blood Venipuncture / Unknown 09/21/2023 6:29 AM CDT 09/21/2023 6:35 AM CDT Juan Dudley MD LAB_1 Performing Organization Address City/[facility]/ZIP Co de Phone Number [address] * Glucose, Whole Blood POCT (09/20/2023 10:21 PM CDT) Glucose, Whole Blood 93 70 - 180 mg/dL 09/20/2023 10:23 PM CDT [facility] Performing Location RCLab S104 09/20/2023 10:23 PM CDT [facility] Blood 09/20/2023 10:2 1 PM CDT 09/20/2023 10:23 PM CDT Jg Munguia MD LAB_1 Performing Organization Address [facility]/ZIP Co de Phone Number [address] * Glucose, Whole Blood POCT (09/20/2023 3:23 PM CDT) Glucose, Whole Blood 116 70 - 180 mg/dL 09/20/2023 3:24 PM CDT [facility] Performing Location Lab S104 09/20/2023 3:24 PM CDT [facility] Blood 09/20/2023 3:23 PM CDT 09/20/2023 3:24 PM CDT Jg Munguia MD LAB_1 Performing Organization Address [facility]/ZIP Co de Phone Number [address] * Glucose, Whole Blood POCT (09/20/2023 11:32 AM CDT) Glucose, Whole Blood 154 70 - 180 mg/dL 09/20/2023 11:34 AM CDT [facility] POCT Comment 1 MD/RN Notified 09/20/2023 11:34 AM CDT [facility] Performing Location Lab S104 09/20/2023 11:34 AM CDT [facility] Blood 09/20/2023 11:3 2 AM CDT 09/20/2023 11:34 AM CDT Jg Munguia MD LAB_1 Performing Organization Address [facility]/ZIP Co de Phone Number [address] * Glucose, Whole Blood POCT (09/20/2023 7:42 AM CDT) Glucose, Whole Blood 101 70 - 180 mg/dL 09/20/2023 7:43 AM CDT [facility] Performing Location RCLab S104 09/20/2023 7:43 AM CDT [facility] Blood 09/20/2023 7:42 AM CDT 09/20/2023 7:43 AM CDT Jg Munguia MD LAB_1 Performing Organization Address [facility] Co de Phone Number [address] * Extra Lavender top tube (09/20/2023 6:39 AM CDT) Pathologist [facility] Extra Lavender Top Drawn Specimen will be held for 3 days 09/20/2023 8:00 AM CDT [facility] Blood Venipuncture / Unknown 09/20/2023 6:39 AM CDT 09/20/2023 6:59 AM CDT Jg Munguia MD LAB_1 Performing Organization Address [facility] Co de Phone Number [address] * Liver Panel(Hepatic Function Panel) (09/20/2023 6:39 AM CDT) Alkaline Phosphatase 71 40 - 150 U/L 09/20/2023 7:39 AM CDT [facility] Bilirubin, Total 0.2 0.2 - 1.2 mg/dL 09/20/2023 7:39 AM CDT [facility] Bilirubin, Direct 0.1 0.0 - 0.5 mg/dL 09/20/2023 7:39 AM CDT [facility] AST (SGOT) 10 10 - 40 U/L 09/20/2023 7:39 AM CDT [facility] ALT (SGPT) 28 <=55 U/L 09/20/2023 7:39 AM CDT [facility] Protein, Total 6.5 6.4 - 8.3 g/dL 09/20/2023 7:39 AM CDT [facility] Albumin 3.5 3.5 - 5.0 g/dL 09/20/2023 7:39 AM CDT [facility] Blood Venipuncture / Unknown 09/20/2023 6:39 AM CDT 09/20/2023 6:58 AM CDT Chiquita Smith MD LAB_[address] * Glucose, Whole Blood POCT (09/19/2023 10:59 PM CDT) Glucose, Whole Blood 95 70 - 180 mg/dL 09/19/2023 11:01 PM CDT [facility] Performing Location RCLab S104 09/19/2023 11:01 PM CDT [facility] Blood 09/19/2023 10:5 9 PM CDT 09/19/2023 11:00 PM CDT Jg Munguia MD LAB_[address] * Glucose, Whole Blood POCT (09/19/2023 6:13 PM CDT) Glucose, Whole Blood 98 70 - 180 mg/dL 09/19/2023 6:14 PM CDT [facility] Performing Location RCLab S104 09/19/2023 6:14 PM CDT [facility] Blood 09/19/2023 6:13 PM CDT 09/19/2023 6:14 PM CDT Jg Munguia MD LAB_[address] * EJECTION FRACTION (09/19/2023 1:43 PM CDT) EF 70 % PROSOLV EF test type ECHO PROSOLV 09/19/2023 1:43 PM CDT Chiquita Smith MD [facility] CATH LA B/RH Performing Organization Address [facility] Co de Phone Number PROSOLV [address] [place] [address] * Cardiac Routine Echocardiogram (09/19/2023 1:43 PM [...] MD HEART CENTER ECHO/RH Performing Organization Address [facility]/ZIP Co de Phone Number PROSOLV [address] [place] [address] * (ABNORMAL) Glucose, Whole Blood POCT (09/19/2023 12:03 PM CDT) Glucose, Whole Blood 186(H) 70 - 180 mg/dL 09/19/2023 12:04 PM CDT [facility] POCT Comment 1 MD/RN Notified 09/19/2023 12:04 PM CDT [facility] Performing Location RCLab S104 09/19/2023 12:04 PM CDT [facility] Blood 09/19/2023 12:0 3 PM CDT 09/19/2023 12:04 PM CDT Jg Munguia MD LAB_1 Performing Organization Address [facility]/ZIP Co de Phone Number [address] * ECG 12-Lead Routine (Lab perform) (09/19/2023 9:43 AM CDT) EKG Completed 09/19/2023 12:00 PM CDT [facility] Other Specimen Type Non-blood Collection / Unknown 09/19/2023 9:43 AM CDT 09/19/2023 10:30 AM CDT Chiquita mSith MD LAB_1 Performing Organization Address [facility] Co de Phone Number [address] * Ecg 12-Lead Routine (MUSE) (09/19/2023 9:36 AM CDT) Ventricular Rate 53 BPM MUSE GHP Atrial Rate 53 BPM MUSE GHP P-R Interval 146 ms MUSE GHP QRS Duration 76 ms MUSE GHP QT 522 ms MUSE GHP QTc 489 ms MUSE GHP P Lander 27 degrees MUSE GHP R Lander 1 degrees MUSE GHP T Lander 27 degrees MUSE GHP 09/19/2023 9:36 AM CDT Narrative MUSE GHP - 09/19/2023 10:23 AM CDT Sinus bradycardia Minimal voltage criteria for LVH, may be normal variant Cannot rule out Inferior infarct (cited on or before 26-DEC-2019) Abnormal ECG When compared with ECG of 31-AUG-2023 10:50, MD interval has decreased Confirmed by Anaid Garcia ([id number]) on 09/19/2023 10:23:02 AM Procedure Note Anaid Garcia MD - 09/19/2023 Sinus bradycardia Minimal voltage criteria for LVH, may be normal variant Cannot rule out Inferior infarct (cited on or before 26-DEC-2019) Abnormal ECG When compared with ECG of 31-AUG-2023 10:50, MD interval has decreased Confirmed by Anaid Garcia ([id number]) on 09/19/2023 10:23:02 AM Chiquita Smith MD EKG Performing Organization Address [facility] Co de Phone Number [facility] [address] [place] [id number] * Glucose, Whole Blood POCT (09/19/2023 9:05 AM CDT) Glucose, Whole Blood 119 70 - 180 mg/dL 09/19/2023 9:06 AM T [facility] Performing Location RCLab S104 09/19/2023 9:06 AM T [facility] Blood 09/19/2023 9:05 AM CDT 09/19/2023 9:06 AM CDT Jg Munguia MD LAB_1 Performing Organization Address [facility] [place] [address], [facility] * (ABNORMAL) Lipid Panel & Direct LDL (if Needed) (09/19/2023 6:28 AM CDT) Cholesterol 186 0 - 199 mg/dL 09/19/2023 10:55 PM CDT [facility] Triglyceride 215(H) <=149 mg/dL 09/19/2023 10:55 PM CDT [facility] HDL Cholesterol 37(L) >=40 mg/dL 10:55 PM CDT [facility] LDL, Calculated 106 <130 mg/dL 10:55 PM T [facility] Non HDL Chol, Calculated 149 <=159 mg/dL 09/19/2023 10:55 PM CDT [facility] Cholesterol/HDL Ratio 5.0 <=5.0 09/19/2023 10:55 PM [facility] Blood Venipuncture / Unknown 09/19/2023 6:28 AM CDT 09/19/2023 6:59 AM CDT Chiquita Smith MD LAB_1 Performing Organization Address [facility] de Phone Number [address] * TSH with reflex to fT4 (not for treatment monitoring) (09/19/2023 6:28 AM CDT) TSH, Reflex 0.92 0.30 - 4.50 uIU/mL 09/19/2023 11:13 PM [facility] Blood Venipuncture / Unknown 09/19/2023 6:28 AM CDT 09/19/2023 6:59 AM CDT Chiquita Smith MD LAB_1 Performing Organization Address [facility] de Phone Number [address] * (ABNORMAL) Complete Blood Count-No Diff (09/19/2023 6:28 AM CDT) WBC 10.6(H) 3.5 - 10.5 x10(9)/L 09/19/2023 7:12 AM [facility] RBC 4.49 3.90 - 5.03 x10(12)/L 09/19/2023 7:12 AM [facility] Hemoglobin 12.7 12.0 - 15.5 g/dL 09/19/2023 7:12 AM [facility] HCT 38.3 34.9 - 44.5 % 09/19/2023 7:12 AM [facility] MCV 85.3 80.0 - 100.0 fL 09/19/2023 7:12 AM [facility] MCH 28.3 27.6 - 33.3 pg 09/19/2023 7:12 AM [facility] MCHC 33.2 31.5 - 35.2 g/dL 09/19/2023 7:12 AM [facility] RDW 13.2 11.9 - 15.5 % 09/19/2023 7:12 AM [facility] Platelets 266 150 - 450 x10(9)/L 09/19/2023 7:12 AM [facility] Automated NRBC 0 <=0 /100 WBC 09/19/2023 7:12 AM [facility] Blood Venipuncture / Unknown 09/19/2023 6:28 AM CDT 09/19/2023 6:59 AM CDT Sherman Trivedi MD LAB_1 [place] [address], [facility] * Basic Metabolic Panel (09/19/2023 6:28 AM CDT) Sodium 136 136 - 145 mmol/L 09/19/2023 7:36 AM [facility] Potassium 4.3 3.5 - 5.1 mmol/L 09/19/2023 7:36 AM [facility] Chloride 104 98 - 109 mmol/L 09/19/2023 7:36 AM [facility] CO2 23 20 - 29 mmol/L 09/19/2023 7:36 AM [facility] Anion Gap 9 6 - 16 mmol/L 09/19/2023 7:36 AM [facility] Calcium 9.4 8.4 - 10.4 mg/dL 09/19/2023 7:36 AM [facility] BUN 13 7 - 26 mg/dL 09/19/2023 7:36 AM [facility] Creatinine 0.55 0.55 - 1.02 mg/dL 09/19/2023 7:36 AM [facility] Glucose 95 70 - 100 mg/dL 09/19/2023 7:36 AM [facility] Comment:The given reference range is for the fasting state. Non-fasting reference range for glucose is 70 - 180 mg/dL. GFR, Estimated >60 >60 mL/min/1.7 3m2 09/19/2023 7:36 AM [facility] Blood Venipuncture / Unknown 09/19/2023 6:28 AM CDT 09/19/2023 6:59 AM CDT Sherman Trivedi MD LAB_1 Performing Organization Address [facility]/ZIP Co de Phone Number [address] * Phosphorus (09/19/2023 6:28 AM CDT) Phosphorus 3.2 2.3 - 4.7 mg/dL 09/19/2023 7:36 AM CDT [facility] Blood Venipuncture / Unknown 09/19/2023 6:28 AM CDT 09/19/2023 6:59 AM CDT Sherman Trivedi MD LAB_1 Performing Organization Address [facility] Co de Phone Number [address] * Magnesium (09/19/2023 6:28 AM CDT) Magnesium 2.1 1.6 - 2.6 mg/dL 09/19/2023 7:36 AM CDT [facility] Blood Venipuncture / Unknown 09/19/2023 6:28 AM CDT 09/19/2023 6:59 AM CDT Sherman Trivedi MD LAB_1 Performing Organization Address [facility] Co de Phone Number [address] * Glucose, Whole Blood POCT (09/18/2023 9:25 PM CDT) Glucose, Whole Blood 102 70 - 180 mg/dL 09/18/2023 9:26 PM CDT [facility] Performing Location RCLab S104 09/18/2023 9:26 PM CDT [facility] Blood 09/18/2023 9:25 PM CDT 09/18/2023 9:26 PM CDT Jg Munguia MD LAB_1 Performing Organization Address [facility] Co de Phone Number [address] * Magnesium (09/18/2023 6:10 PM CDT) Magnesium 2.4 1.6 - 2.6 mg/dL 09/18/2023 6:41 PM CDT [facility] Blood Venipuncture / Unknown 09/18/2023 6:10 PM CDT 09/18/2023 6:13 PM CDT Jg Munguia MD LAB_[address] * Glucose, Whole Blood POCT (09/18/2023 4:01 PM CDT) Glucose, Whole Blood 95 70 - 180 mg/dL 09/18/2023 4:02 PM CDT [facility] Performing Location Lab S104 09/18/2023 4:02 PM CDT [facility] Blood 09/18/2023 4:01 PM CDT 09/18/2023 4:02 PM CDT Jg Munguia MD LAB_1 Performing Organization Address [facility] Co de Phone Number [address] * Glucose, Whole Blood POCT (09/18/2023 12:37 PM CDT) Glucose, Whole Blood 142 70 - 180 mg/dL 09/18/2023 12:38 PM CDT [facility] Performing Location RCLab S104 09/18/2023 12:38 PM CDT [facility] Blood 09/18/2023 12:3 7 PM CDT 09/18/2023 12:38 PM CDT Jg Munguia MD LAB_1 Performing Organization Address City/[facility]/ZIP Co de Phone Number [address] * Complete Blood Count-No Diff (09/18/2023 9:00 AM CDT) WBC 9.1 3.5 - 10.5 x10(9)/L 09/18/2023 9:12 AM [facility] RBC 4.48 3.90 - 5.03 x10(12)/L 09/18/2023 9:12 AM [facility] Hemoglobin 12.7 12.0 - 15.5 g/dL 09/18/2023 9:12 AM [facility] HCT 38.8 34.9 - 44.5 % 09/18/2023 9:12 AM [facility] MCV 86.6 80.0 - 100.0 fL 09/18/2023 9:12 AM [facility] MCH 28.3 27.6 - 33.3 pg 09/18/2023 9:12 AM [facility] MCHC 32.7 31.5 - 35.2 g/dL 09/18/2023 9:12 AM [facility] RDW 13.4 11.9 - 15.5 % 09/18/2023 9:12 AM [facility] Platelets 221 150 - 450 x10(9)/L 09/18/2023 9:12 AM [facility] Automated NRBC 0 <=0 /100 WBC 09/18/2023 9:12 AM [facility] Blood Venipuncture / Unknown 09/18/2023 9:00 AM CDT 09/18/2023 9:08 AM CDT Sherman Trivedi MD LAB_1 Performing Organization Address City/State/[facility] [place] [address], [facility] * (ABNORMAL) Basic Metabolic Panel (09/18/2023 9:00 AM CDT) Sodium 136 136 - 145 mmol/L 09/18/2023 9:35 AM [facility] Potassium 4.0 3.5 - 5.1 mmol/L 09/18/2023 9:35 AM [facility] Comment:Specimen slightly he molyzed. Hemolysis may affect result. Chloride 105 98 - 109 mmol/L 09/18/2023 9:35 AM [facility] CO2 23 20 - 29 mmol/L 09/18/2023 9:35 AM [facility] Anion Gap 8 6 - 16 mmol/L 09/18/2023 9:35 AM [facility] Calcium 9.5 8.4 - 10.4 mg/dL 09/18/2023 9:35 AM [facility] BUN 14 7 - 26 mg/dL 09/18/2023 9:35 AM [facility] Creatinine 0.59 0.55 - 1.02 mg/dL 09/18/2023 9:35 AM [facility] Glucose 107(H) 70 - 100 mg/dL 09/18/2023 9:35 AM [facility] Comment:The given reference range is for the fasting state. Non-fasting reference range for glucose is 70 - 180 mg/dL. GFR, Estimated >60 >60 mL/min/1.7 3m2 09/18/2023 9:35 AM [facility] Blood Venipuncture / Unknown 09/18/2023 9:00 AM CDT 09/18/2023 9:08 AM CDT Sherman Trivedi MD LAB_1 Performing Organization Address City/[facility]/ZIP Co de Phone Number [address] * Phosphorus (09/18/2023 9:00 AM CDT) Phosphorus 2.9 2.3 - 4.7 mg/dL 09/18/2023 9:35 AM T [facility] Blood Venipuncture / Unknown 09/18/2023 9:00 AM CDT 09/18/2023 9:08 AM CDT Sherman Trivedi MD LAB_[address] * Magnesium (09/18/2023 9:00 AM CDT) Magnesium 1.9 1.6 - 2.6 mg/dL 09/18/2023 9:35 AM T [facility] Blood Venipuncture / Unknown 09/18/2023 9:00 AM CDT 09/18/2023 9:08 AM CDT Sherman Trivedi MD LAB_[address] * Glucose, Whole Blood POCT (09/18/2023 7:40 AM CDT) Glucose, Whole Blood 109 70 - 180 mg/dL 09/18/2023 7:41 AM CDT [facility] Performing Location Lab S104 09/18/2023 7:41 AM CDT [facility] Blood 09/18/2023 7:40 AM CDT 09/18/2023 7:41 AM CDT Jg Munguia MD LAB_1 Performing Organization Address [facility]/ZIP Co de Phone Number [address] * Glucose, Whole Blood POCT (09/17/2023 9:54 PM CDT) Glucose, Whole Blood 134 70 - 180 mg/dL 09/17/2023 9:55 PM CDT [facility] Performing Location Lab S104 09/17/2023 9:55 PM CDT [facility] Blood 09/17/2023 9:54 PM CDT 09/17/2023 9:55 PM CDT Jg Munguia MD LAB_1 Performing Organization Address [facility]/ZIP Co de Phone Number [address] * Glucose, Whole Blood POCT (09/17/2023 8:32 AM CDT) Glucose, Whole Blood 118 70 - 180 mg/dL 09/17/2023 8:34 AM CDT [facility] Performing Location RCLab S104 09/17/2023 8:34 AM CDT [facility] Blood 09/17/2023 8:32 AM CDT 09/17/2023 8:34 AM CDT Jg Munguia MD LAB_[address] [place] [address], [place] * (ABNORMAL) Complete Blood Count-No Diff (09/17/2023 6:27 AM CDT) WBC 11.0(H) 3.5 - 10.5 x10(9)/L 09/17/2023 6:37 AM [facility] RBC 4.00 3.90 - 5.03 x10(12)/L 09/17/2023 6:37 AM [facility] Hemoglobin 11.3(L) 12.0 - 15.5 g/dL 09/17/2023 6:37 AM [facility] HCT 34.5(L) 34.9 - 44.5 % 09/17/2023 6:37 AM [facility] MCV 86.3 80.0 - 100.0 fL 09/17/2023 6:37 AM [facility] MCH 28.3 27.6 - 33.3 pg 09/17/2023 6:37 AM [facility] MCHC 32.8 31.5 - 35.2 g/dL 09/17/2023 6:37 AM [facility] RDW 13.6 11.9 - 15.5 % 09/17/2023 6:37 AM [facility] Platelets 211 150 - 450 x10(9)/L 09/17/2023 6:37 AM [facility] Automated NRBC 0 <=0 /100 WBC 09/17/2023 6:37 AM [facility] Blood Venipuncture Butterfly / Unknown 09/17/2023 6:27 AM CDT 09/17/2023 6:32 AM CDT Sherman Trivedi MD LAB_[address] * (ABNORMAL) Basic Metabolic Panel (09/17/2023 6:27 AM CDT) Pathologist [facility] Sodium 139 136 - 145 mmol/L 09/17/2023 6:59 AM T [facility] Potassium 4.1 3.5 - 5.1 mmol/L 09/17/2023 6:59 AM [facility] Chloride 109 98 - 109 mmol/L 09/17/2023 6:59 AM [facility] CO2 23 20 - 29 mmol/L 09/17/2023 6:59 AM [facility] Anion Gap 7 6 - 16 mmol/L 09/17/2023 6:59 AM [facility] Calcium 9.6 8.4 - 10.4 mg/dL 09/17/2023 6:59 AM [facility] BUN 14 7 - 26 mg/dL 09/17/2023 6:59 AM [facility] Creatinine 0.54(L) 0.55 - 1.02 mg/dL 09/17/2023 6:59 AM [facility] Glucose 121(H) 70 - 100 mg/dL 09/17/2023 6:59 AM [facility] Comment:The given reference range is for the fasting state. Non-fasting reference range for glucose is 70 - 180 mg/dL. GFR, Estimated >60 >60 mL/min/1.7 3m2 09/17/2023 6:59 AM [facility] Blood Venipuncture Butterfly / Unknown 09/17/2023 6:27 AM CDT 09/17/2023 6:32 AM CDT Sherman Trivedi MD LAB_1 Performing Organization Address City/[facility] Co de Phone Number [address] * Phosphorus (09/17/2023 6:27 AM CDT) Phosphorus 3.4 2.3 - 4.7 mg/dL 09/17/2023 6:59 AM [facility] Blood Venipuncture Butterfly / Unknown 09/17/2023 6:27 AM CDT 09/17/2023 6:32 AM CDT Sherman Trivedi MD LAB_1 Performing Organization Address [facility] Co de Phone Number [address] * Magnesium (09/17/2023 6:27 AM CDT) Magnesium 2.1 1.6 - 2.6 mg/dL 09/17/2023 6:59 AM CDT [facility] Blood Venipuncture Butterfly / Unknown 09/17/2023 6:27 AM CDT 09/17/2023 6:32 AM CDT Sherman Trivedi MD LAB_1 Performing Organization Address [facility] Co de Phone Number [address] * Glucose, Whole Blood POCT (09/16/2023 9:46 PM CDT) Glucose, Whole Blood 140 70 - 180 mg/dL 09/16/2023 9:48 PM CDT [facility] Performing Location RCLab S104 09/16/2023 9:48 PM CDT [facility] Blood 09/16/2023 9:46 PM CDT 09/16/2023 9:48 PM CDT Jg Munguia MD LAB_1 Performing Organization Address [facility] Co de Phone Number [address] * MAGNESIUM (09/16/2023 6:49 PM CDT) Magnesium 2.0 1.6 - 2.6 mg/dL 09/16/2023 7:16 PM CDT [facility] Blood Venipuncture / Unknown 09/16/2023 6:49 PM CDT 09/16/2023 6:53 PM CDT Jg Munguia MD LAB_1 Performing Organization Address [facility] Co de Phone Number [address] * Glucose, Whole Blood POCT (09/16/2023 4:31 PM CDT) Glucose, Whole Blood 118 70 - 180 mg/dL 09/16/2023 4:32 PM CDT [facility] Performing Location RCLab S104 09/16/2023 4:32 PM CDT [facility] Blood 09/16/2023 4:31 PM CDT 09/16/2023 4:32 PM CDT Jg Munguia MD LAB_1 Performing Organization Address [facility] Co de Phone Number [address] * Glucose, Whole Blood POCT (09/16/2023 12:03 PM CDT) Glucose, Whole Blood 176 70 - 180 mg/dL 09/16/2023 12:05 PM CDT [facility] Performing Location Lab S104 09/16/2023 12:05 PM CDT [facility] Blood 09/16/2023 12:0 3 PM CDT 09/16/2023 12:05 PM CDT Jg Munguia MD LAB_1 Performing Organization Address [facility] Phone [address] * Glucose, Whole Blood POCT (09/16/2023 8:00 AM CDT) Glucose, Whole Blood 133 70 - 180 mg/dL 09/16/2023 8:01 AM T [facility] Performing Location Lab S104 09/16/2023 8:01 AM T [facility] Blood 09/16/2023 8:00 AM CDT 09/16/2023 8:01 AM CDT Jg Munguia MD LAB_1 Performing Organization Address [facility] Co de Phone Number [address] * (ABNORMAL) Complete Blood Count-No Diff (09/16/2023 6:29 AM CDT) WBC 14.8(H) 3.5 - 10.5 x10(9)/L 09/16/2023 7:31 AM CDT [facility] RBC 4.02 3.90 - 5.03 x10(12)/L 09/16/2023 7:31 AM CDT [facility] Hemoglobin 11.3(L) 12.0 - 15.5 g/dL 09/16/2023 7:31 AM [facility] HCT 35.3 34.9 - 44.5 % 09/16/2023 7:31 AM [facility] MCV 87.8 80.0 - 100.0 fL 09/16/2023 7:31 AM [facility] MCH 28.1 27.6 - 33.3 pg 09/16/2023 7:31 AM [facility] MCHC 32.0 31.5 - 35.2 g/dL 09/16/2023 7:31 AM [facility] RDW 13.7 11.9 - 15.5 % 09/16/2023 7:31 AM [facility] Platelets 204 150 - 450 x10(9)/L 09/16/2023 7:31 AM [facility] Automated NRBC 0 <=0 /100 WBC 09/16/2023 7:31 AM [facility] Blood Venipuncture / Unknown 09/16/2023 6:29 AM CDT 09/16/2023 7:20 AM CDT Sherman Trivedi MD LAB_1 Performing Organization Address [facility]/State/[facility] Co de Phone Number [address] * (ABNORMAL) Basic Metabolic Panel (09/16/2023 6:29 AM CDT) Sodium 140 136 - 145 mmol/L 09/16/2023 7:54 AM [facility] Potassium 4.0 3.5 - 5.1 mmol/L 09/16/2023 7:54 AM [facility] Chloride 108 98 - 109 mmol/L 09/16/2023 7:54 AM [facility] CO2 24 20 - 29 mmol/L 09/16/2023 7:54 AM [facility] Anion Gap 8 6 - 16 mmol/L 09/16/2023 7:54 AM [facility] Calcium 9.4 8.4 - 10.4 mg/dL 09/16/2023 7:54 AM [facility] BUN 14 7 - 26 mg/dL 09/16/2023 7:54 AM [facility] Creatinine 0.55 0.55 - 1.02 mg/dL 09/16/2023 7:54 AM [facility] Glucose 133(H) 70 - 100 mg/dL 09/16/2023 7:54 AM [facility] Comment:The given reference range is for the fasting state. Non-fasting reference range for glucose is 70 - 180 mg/dL. GFR, Estimated >60 >60 mL/min/1.7 3m2 09/16/2023 7:54 AM [facility] Blood Venipuncture / Unknown 09/16/2023 6:29 AM CDT 09/16/2023 7:20 AM CDT Sherman Trivedi MD LAB_1 Performing Organization Address [facility] Co de Phone Number [address] * Phosphorus (09/16/2023 6:29 AM CDT) Phosphorus 2.4 2.3 - 4.7 mg/dL 09/16/2023 7:54 AM [facility] Blood Venipuncture / Unknown 09/16/2023 6:29 AM CDT 09/16/2023 7:20 AM CDT Sherman Trivedi MD LAB_1 Performing Organization Address [facility] Co de Phone Number [address] * Magnesium (09/16/2023 6:29 AM CDT) Magnesium 1.9 1.6 - 2.6 mg/dL 09/16/2023 7:54 AM [facility] Blood Venipuncture / Unknown 09/16/2023 6:29 AM CDT 09/16/2023 7:20 AM CDT Sherman Trivedi MD LAB_1 Performing Organization Address [facility] Co de Phone Number [address] * Glucose, Whole Blood POCT (09/15/2023 9:08 PM CDT) Glucose, Whole Blood 163 70 - 180 mg/dL 09/15/2023 9:09 PM CDT [facility] Performing Location RCLab S104 09/15/2023 9:09 PM CDT [facility] Blood 09/15/2023 9:08 PM CDT 09/15/2023 9:09 PM CDT Jg Munguia MD LAB_[address] * Glucose, Whole Blood POCT (09/15/2023 4:59 PM CDT) Glucose, Whole Blood 129 70 - 180 mg/dL 09/15/2023 5:00 PM CDT [facility] Performing Location Lab S104 09/15/2023 5:00 PM CDT [facility] Blood 09/15/2023 4:59 PM CDT 09/15/2023 5:00 PM CDT Jg Munguia MD LAB_[address] * Glucose, Whole Blood POCT (09/15/2023 12:47 PM CDT) Glucose, Whole Blood 127 70 - 180 mg/dL 09/15/2023 12:55 PM CDT [facility] Performing Location RCLAB W3 09/15/2023 12:55 PM CDT [facility] Blood 09/15/2023 12:4 7 PM CDT 09/15/2023 12:55 PM CDT Jg Munguia MD LAB_[address] * Glucose, Whole Blood POCT (09/15/2023 8:29 AM CDT) Glucose, Whole Blood 140 70 - 180 mg/dL 09/15/2023 8:34 AM [facility] Performing Location RCLAB W3 09/15/2023 8:34 AM [facility] Blood 09/15/2023 8:29 AM CDT 09/15/2023 8:34 AM CDT Jg Munguia MD LAB_1 [place] [address], [facility] * (ABNORMAL) Complete Blood Count-No Diff (09/15/2023 3:43 AM CDT) WBC 16.4(H) 3.5 - 10.5 x10(9)/L 09/15/2023 3:54 AM [facility] RBC 4.16 3.90 - 5.03 x10(12)/L 09/15/2023 3:54 AM [facility] Hemoglobin 11.8(L) 12.0 - 15.5 g/dL 09/15/2023 3:54 AM [facility] HCT 36.2 34.9 - 44.5 % 09/15/2023 3:54 AM [facility] MCV 87.0 80.0 - 100.0 fL 09/15/2023 3:54 AM [facility] MCH 28.4 27.6 - 33.3 pg 09/15/2023 3:54 AM [facility] MCHC 32.6 31.5 - 35.2 g/dL 09/15/2023 3:54 AM [facility] RDW 13.7 11.9 - 15.5 % 09/15/2023 3:54 AM [facility] Platelets 229 150 - 450 x10(9)/L 09/15/2023 3:54 AM [facility] Automated NRBC 0 <=0 /100 WBC 09/15/2023 3:54 AM [facility] Blood Venipuncture / Unknown 09/15/2023 3:43 AM CDT 09/15/2023 3:48 AM CDT Sherman Trivedi MD LAB_1 [address] * (ABNORMAL) Basic Metabolic Panel (09/15/2023 3:43 AM CDT) Sodium 138 136 - 145 mmol/L 09/15/2023 4:20 AM [facility] Potassium 3.9 3.5 - 5.1 mmol/L 09/15/2023 4:20 AM [facility] Chloride 109 98 - 109 mmol/L 09/15/2023 4:20 AM [facility] CO2 21 20 - 29 mmol/L 09/15/2023 4:20 AM [facility] Anion Gap 8 6 - 16 mmol/L 09/15/2023 4:20 AM [facility] Calcium 9.2 8.4 - 10.4 mg/dL 09/15/2023 4:20 AM [facility] BUN 10 7 - 26 mg/dL 09/15/2023 4:20 AM [facility] Creatinine 0.51(L) 0.55 - 1.02 mg/dL 09/15/2023 4:20 AM [facility] Glucose 136(H) 70 - 100 mg/dL 09/15/2023 4:20 AM [facility] Comment:The given reference range is for the fasting state. Non-fasting reference range for glucose is 70 - 180 mg/dL. GFR, Estimated >60 >60 mL/min/1.7 3m2 09/15/2023 4:20 AM [facility] Blood Venipuncture / Unknown 09/15/2023 3:43 AM CDT 09/15/2023 3:48 AM CDT Sherman Trivedi MD LAB_1 [address] * Phosphorus (09/15/2023 3:43 AM CDT) Phosphorus 3.9 2.3 - 4.7 mg/dL 09/15/2023 4:20 AM [facility] Blood Venipuncture / Unknown 09/15/2023 3:43 AM CDT 09/15/2023 3:48 AM CDT Sherman Trivedi MD LAB_1 Performing Organization Address City/[facility]/ZIP Co de Phone Number [address] * Magnesium (09/15/2023 3:43 AM CDT) Magnesium 2.0 1.6 - 2.6 mg/dL 09/15/2023 4:20 AM CDT [facility] Blood Venipuncture / Unknown 09/15/2023 3:43 AM CDT 09/15/2023 3:48 AM CDT Sherman Trivedi MD LAB_1 Performing Organization Address [facility] Co de Phone Number [address] * MR Brain W/WO IV Cont (09/15/2023 2:36 AM CDT) Anatomical Region Laterality Modality Head Magnetic Resonan ce 09/15/2023 2:36 AM CDT Narrative 09/15/2023 3:14 AM CDT EXAM: MR BRAIN W/WO IV CONT LOCATION: [facility] DATE: 09/15/2023 INDICATION: S/p eyebrow crani [...] EXAM: MR BRAIN W/WO IV CONT LOCATION: [facility] DATE: 09/15/2023 INDICATION: S/p eyebrow crani [...] - 180 mg/dL 09/15/2023 12:39 AM CDT [facility] POCT Comment 1 /RN Notified 09/15/2023 12:39 AM CDT [facility] Performing Location RCLAB W3 09/15/2023 12:39 AM CDT [facility] Blood 09/15/2023 12:3 5 AM CDT 09/15/2023 12:39 AM CDT Jg Munguia MD LAB_[address] [id number], [facility] * Glucose, Whole Blood POCT (09/14/2023 7:55 PM CDT) Glucose, Whole Blood 127 70 - 180 mg/dL 09/14/2023 7:57 PM CDT [facility] Performing Location RCLAB W3 09/14/2023 7:57 PM CDT [facility] Blood 09/14/2023 7:55 PM CDT 09/14/2023 7:57 PM CDT Jg Munguia MD LAB_[address] * Phosphorus (09/14/2023 5:57 PM CDT) Phosphorus 3.8 2.3 - 4.7 mg/dL 09/14/2023 7:19 PM CDT [facility] Blood Arterial Line / Unknown 09/14/2023 5:57 PM CDT 09/14/2023 6:03 PM CDT Jg Munguia MD LAB_1 Performing Organization Address [facility] Co de Phone Number [address] * Magnesium (09/14/2023 5:57 PM CDT) Magnesium 1.6 1.6 - 2.6 mg/dL 09/14/2023 7:19 PM CDT [facility] Blood Arterial Line / Unknown 09/14/2023 5:57 PM CDT 09/14/2023 6:03 PM CDT Jg Munguia MD LAB_1 Performing Organization Address City/[facility]/ZIP Co de Phone Number [address] * Potassium (09/14/2023 5:57 PM CDT) Potassium 4.1 3.5 - 5.1 mmol/L 09/14/2023 7:20 PM CDT [facility] Blood Arterial Line / Unknown 09/14/2023 5:57 PM CDT 09/14/2023 6:03 PM CDT Jg Munguia MD LAB_1 Performing Organization Address City/[facility]/ZIP Co de Phone Number [address] * Glucose, Whole Blood POCT (09/14/2023 5:36 PM CDT) Glucose, Whole Blood 153 70 - 180 mg/dL 09/14/2023 5:38 PM T [facility] Performing Location RCLAB W3 09/14/2023 5:38 PM T [facility] Blood 09/14/2023 5:36 PM CDT 09/14/2023 5:38 PM CDT Jg Munguia MD LAB_1 Performing Organization Address City/[facility]/ZIP Co de Phone Number [address] * (ABNORMAL) Basic Metabolic Panel (09/14/2023 1:50 PM CDT) Sodium 139 136 - 145 mmol/L 09/14/2023 2:26 PM [facility] Potassium 3.9 3.5 - 5.1 mmol/L 09/14/2023 2:26 PM [facility] Chloride 108 98 - 109 mmol/L 09/14/2023 2:26 PM [facility] CO2 22 20 - 29 mmol/L 09/14/2023 2:26 PM [facility] Anion Gap 9 6 - 16 mmol/L 09/14/2023 2:26 PM [facility] Calcium 9.4 8.4 - 10.4 mg/dL 09/14/2023 2:26 PM [facility] BUN 10 7 - 26 mg/dL 09/14/2023 2:26 PM [facility] Creatinine 0.68 0.55 - 1.02 mg/dL 09/14/2023 2:26 PM [facility] Glucose 158(H) 70 - 100 mg/dL 09/14/2023 2:26 PM [facility] Comment:The given reference range is for the fasting state. Non-fasting reference range for glucose is 70 - 180 mg/dL. GFR, Estimated >60 >60 mL/min/1.7 3m2 09/14/2023 2:26 PM [facility] [facility] Blood Venipuncture / Unknown 09/14/2023 1:50 PM CDT 09/14/2023 1:53 PM CDT Maggie Ding PA-C LAB_[address] [address], [facility] * Complete Blood Count-No Diff (09/14/2023 1:50 PM CDT) WBC 9.0 3.5 - 10.5 x10(9)/L 09/14/2023 2:12 PM [facility] RBC 4.94 3.90 - 5.03 x10(12)/L 09/14/2023 2:12 PM [facility] Hemoglobin 14.0 12.0 - 15.5 g/dL 09/14/2023 2:12 PM [facility] HCT 43.5 34.9 - 44.5 % 09/14/2023 2:12 PM [facility] MCV 88.1 80.0 - 100.0 fL 09/14/2023 2:12 PM [facility] MCH 28.3 27.6 - 33.3 pg 09/14/2023 2:12 PM [facility] MCHC 32.2 31.5 - 35.2 g/dL 09/14/2023 2:12 PM [facility] RDW 13.5 11.9 - 15.5 % 09/14/2023 2:12 PM [facility] Platelets 241 150 - 450 x10(9)/L 09/14/2023 2:12 PM [facility] Automated NRBC 0 <=0 /100 WBC 09/14/2023 2:12 PM [facility] Blood Venipuncture / Unknown 09/14/2023 1:50 PM CDT 09/14/2023 1:53 PM CDT Maggie Ding PA-C LAB_1 Performing Organization Address [facility] Phone [address] * Glucose, Whole Blood POCT (09/14/2023 1:00 PM CDT) Glucose, Whole Blood 168 70 - 180 mg/dL 09/14/2023 1:01 PM CDT [facility] Performing Location [facility] PACU 09/14/2023 1:01 PM CDT [facility] Blood 09/14/2023 1:00 PM CDT 09/14/2023 1:01 PM CDT Jg Munguia MD LAB_1 Performing Organization Address [facility]/[address] * Surgical Path (09/14/2023 11:30 AM CDT) Pathologist [facility] Case Report Surgical Pathology ?Case: [id number] ? Authorizing Provider: ??Jg Munguia MD ?Collected: ? 09/14/2023 1130 ? Ordering Location: ? Operating Room ?Received: ?09/14/2023 1136 ? Pathologist: ? Bella Medina MD ? Specimen: ?Brain, Anterior Skull Based Meningioma ? 09/15/2023 2:51 PM [facility] FINAL DIAGNOSIS A. Brain, anterior skull based tumor, excision: Meningioma, WHO grade 1 Comment: The tumor cells are strongly positive for MD immunohistochemical stain and are negative for ER. 09/15/2023 2:51 PM [facility] Clinical Information Meningioma (HRC) 09/15/2023 2:51 PM [facility] Microscopic Description Microscopic examination is performed. 09/15/2023 2:51 PM [facility] Special Stains The stain controls have been reviewed and stain appropriately. 09/15/2023 2:51 PM [facility] Gross Description A: The specimen is received in formalin and labeled with the patient's name and Brain, Anterior Skull Based Meningioma. The specimen consists of 3.8 x 2.1 x 0.7 cm aggregate of pink-red, irregular soft tissue fragments with cautery. The specimen was excised at 11:30 AM, 09/14/2023 and placed into formalin at 12:01 PM, 09/14/2023. Glassware Maker sections are submitted in 7 cassettes. 09/15/2023 2:51 PM [facility] Embedded Images 09/15/2023 2:51 PM [facility] Tissue SPECIMEN FROM BRAIN / Unknown 09/14/2023 11:30 AM CDT 09/14/2023 11:36 AM CDT Jg Munguia MD LAB PATHOLOGY [address] [address], [facility] * Glucose, Whole Blood POCT (09/14/2023 9:45 AM CDT) Glucose, Whole Blood 144 70 - 180 mg/dL 09/14/2023 9:47 AM [facility] Performing Location [facility] OR 09/14/2023 9:47 AM [facility] Blood 09/14/2023 9:45 AM CDT 09/14/2023 9:47 AM CDT Jg Munguia MD LAB_1 Performing Organization Address [facility] Co de Phone Number [address] * Glucose, Whole Blood POCT (09/14/2023 5:59 AM CDT) Glucose, Whole Blood 110 70 - 180 mg/dL 09/14/2023 6:01 AM CDT [facility] Performing Location [facility] PSCU 09/14/2023 6:01 AM CDT [facility] Blood 09/14/2023 5:59 AM CDT 09/14/2023 6:01 AM CDT Jg Munguia MD LAB_1 Performing Organization Address [facility] Phone Number [address] * Extra Carlock/Bank Tube (09/14/2023 5:56 AM CDT) Extra Carlock/Bank Tube Drawn Received in BB 09/14/2023 8:08 AM CDT [facility] Blood Venipuncture / Unknown 09/14/2023 5:56 AM CDT 09/14/2023 8:07 AM CDT Bella Medina MD LAB_1 Performing Organization Address [facility] Co de Phone Number [facility] [address] [place] [place] [address] * Antibody Screen (09/14/2023 5:52 AM CDT) Antibody Screen Interpretation Negative 09/14/2023 7:00 AM CDT [facility] Blood Venipuncture / Unknown 09/14/2023 5:52 AM CDT 09/14/2023 6:09 AM CDT Mike Davis PA-C LAB_1 Performing Organization Address [facility]/State/ZIP Co de Phone Number [facility] [address] [place] [place] [address] * Blood Type (09/14/2023 5:52 AM CDT) ABO O 09/14/2023 7:00 AM CDT [facility] RH Positive 09/14/2023 7:00 AM CDT [facility] Blood Venipuncture / Unknown 09/14/2023 5:52 AM CDT 09/14/2023 6:09 AM CDT Mike Davis PA-C LAB_1 Performing Organization Address [facility] Co de Phone Number [facility] [address] [place] [place] [address] * INR/Protime (09/14/2023 5:52 AM CDT) Protime 13.0 11.8 - 14.6 Seconds 09/14/2023 6:28 AM CDT [facility] INR 1.0 0.9 - 1.1 09/14/2023 6:28 AM CDT [facility] Blood Venipuncture / Unknown 09/14/2023 5:52 AM CDT 09/14/2023 6:10 AM CDT Narrative [facility] - 09/14/2023 6:28 AM CDT If you take an anticoagulant medicine called warfarin, your doctor or clinician may establish a normal range for you that is different from the baseline range shown. Mike Davis PA-C LAB_1 Performing Organization Address [facility] Co de Phone Number [address] * (ABNORMAL) Hemogram with Platelets (09/14/2023 5:52 AM CDT) WBC 6.4 3.5 - 10.5 x10(9)/L 09/14/2023 6:21 AM CDT [facility] RBC 4.78 3.90 - 5.03 x10(12)/L 09/14/2023 6:21 AM CDT [facility] Hemoglobin 13.2 12.0 - 15.5 g/dL 09/14/2023 6:21 AM [facility] HCT 42.2 34.9 - 44.5 % 09/14/2023 6:21 AM [facility] MCV 88.3 80.0 - 100.0 fL 09/14/2023 6:21 AM [facility] MCH 27.6 27.6 - 33.3 pg 09/14/2023 6:21 AM [facility] MCHC 31.3(L) 31.5 - 35.2 g/dL 09/14/2023 6:21 AM [facility] RDW 13.4 11.9 - 15.5 % 09/14/2023 6:21 AM [facility] Platelets 243 150 - 450 x10(9)/L 09/14/2023 6:21 AM [facility] Automated NRBC 0 <=0 /100 WBC 09/14/2023 6:21 AM [facility] Blood Venipuncture / Unknown 09/14/2023 5:52 AM CDT 09/14/2023 6:10 AM CDT Mike Davis PA-C LAB_1 Performing Organization Address [facility]/State/[facility] Co de Phone Number [address] * (ABNORMAL) Basic Metabolic Panel (09/14/2023 5:52 AM CDT) Sodium 140 136 - 145 mmol/L 09/14/2023 6:39 AM [facility] Potassium 4.2 3.5 - 5.1 mmol/L 09/14/2023 6:39 AM [facility] Comment:Specimen slightly he molyzed. Hemolysis may affect result. Chloride 109 98 - 109 mmol/L 09/14/2023 6:39 AM [facility] CO2 22 20 - 29 mmol/L 09/14/2023 6:39 AM [facility] Anion Gap 9 6 - 16 mmol/L 09/14/2023 6:39 AM [facility] Calcium 10.2 8.4 - 10.4 mg/dL 09/14/2023 6:39 AM [facility] BUN 12 7 - 26 mg/dL 09/14/2023 6:39 AM CDT [facility] Creatinine 0.64 0.55 - 1.02 mg/dL 09/14/2023 6:39 AM [facility] Glucose 104(H) 70 - 100 mg/dL 09/14/2023 6:39 AM [facility] Comment:The given reference range is for the fasting state. Non-fasting reference range for glucose is 70 - 180 mg/dL. 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 Up ad yrne in room and hallway. Tolerating diet. Continent of bladder, no BM. Pt is able to make needs known and calls appropriately. * Plan of Care - Hina Flood RN - 09/22/2023 9:28 AM CDT [facility]. Practitioner Notified Note Name of Practitioner [...] per MAR with stated relief. 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 Lives with adult children who are [...] and can make needs known. Care Hours [id number] * Plan of Care - Sonya Espino RN - 09/20/2023 2:55 PM CDT [facility] Care Management Follow Up Note Plan: Care Team Actions Needed: medical clearance, discharge orders, PT/OT consult Expected discharge date: 09/20/2023 Anticipated Discharge Plan: Likely home pending PT/OT recs Care Coordination Updates: Current Patient Assessment: appropriate, pleasant Barriers/Vulnerabilities: patient continues to require acute medical care Anticipated Transportation Mode: Private Vehicle Contacts: Emergency Contacts Acting Professor (Rel.) Home Phone Work Phone Mobile Phone WERO BRAY (Son) [phone] -- -- SARY ROSAS (Daughter) [phone] -- -- Stefany Leyva [phone] -- -- Functional Level Prior: Functional Screen (Baseline Prior to Admission) Ambulation: Independent Transferring: Independent Toileting: Independent Bathing: Independent Dressing: Independent Eating: Independent Communication: Understands/communicates without difficulty Swallowing: Swallows foods/liquids without difficulty Meal Preparation: Independent Laundry: Independent Finances: Independent Shopping: Independent Transportation: Drives Independently 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 Lives with adult children who are able to assist Primary Care: Primary Care Primary Care Clinic: [facility] Primary Care Physician: Svitlana Olmos MD [...] Phelan RN - 09/20/2023 5:24 AM CDT [facility] Plan of Care Note Assessment: Neuro [...] and can make needs known. Care Hours [id number] * Plan of Care - Alysa aHrdy RN - 09/19/2023 7:02 AM CDT A/o x 4. States incisional pain 5/10, [id number] dosing of prn's utilized per pt request. Swelling at incision. States improved numbness in R hand. Sinus ck, HR 40's-50's. Ambulating to bathroom IND, steady gait. Continent of bladder. Makes needs known. * Plan of Care - Rachel Chilel RN - 09/18/2023 8:04 PM CDT Pt A&Ox4. PERRL. HERNANDEZ. C/o incisional pain tolerable with scheduled and prn medications. Incisional site sutured and SAND MILL GRINDER. Up in room and hallway independently. Tolerating diet. No c/o N/V. Mag 1.9replacement given. Recheck WNL. Able to make need known. * Plan of Care - Daksha Ariza RN - 09/18/2023 6:50 AM CDT A&Ox4, can be forgetful. VSS w/ HR ck on RA. C/o head pain managed w/ PRN pain meds. Denies SOB, N/V. Numbness to RUE, d/t surgery. Incision C/D/I and SAND MILL GRINDER. Swelling/bruising still present to forehead/eyes. C/o no [...] with SBA. Incision CDI. 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 Lives with adult children who are [...] Jean, RN - 09/17/2023 9:00 AM CDT [facility] Care Management Follow Up Note Plan: Care Team Actions Needed: MD medical clearance, discharge orders, PT/OT consult Expected discharge date: 09/19/2023 Anticipated Discharge Plan: Likely home pending PT/OT recs Admission Info: Reason for Consult: discharge planning Chart Reviewed: discussed with patient, discussed with interdisciplinary team Contacts: Emergency Contacts Acting Professor (Rel.) Home Phone Work Phone Mobile Phone WERO BRAY (Son) [phone] -- -- SARY ROSAS (Daughter) [phone] -- -- GordonStefany [phone] -- -- Cognitive capacity prior to admission: oriented Independent with ADLs (Prior to Admission)? 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 Lives with adult children who are [...] do initially) Primary Care: Primary Care Clinic: [facility] Primary Care Physician: Svitlana Olmos MD Functional Level Prior: Functional Screen (Baseline Prior to Admission) Ambulation: Independent Transferring: Independent Toileting: Independent Bathing: Independent Dressing: Independent Eating: Independent Communication: Understands/communicates without difficulty Swallowing: Swallows foods/liquids without difficulty Meal Preparation: Independent Laundry: Independent Finances: Independent Shopping: Independent Transportation: Drives Independently 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 Lives with adult children who are able to assist Insurance: [employer] Readmission Assessment: Initial assessment notes: Reviewed patient's chart and discussed plan of care with team during care connection. Met with patient, introduced myself and my role as case operator/mental health social worker. Verified demographics. Patient currently lives w/ 3 adult children and 2 grandchildren in a house in [place]. 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 She has been on short-term disability since May and is applying for long-term disability. No reported DME at home. Has support from 7 adult children (all of which live nearby), grandchildren. Patient drives to get to their medical appointments. PCP is Svitlana Olmos MD at [facility]. Trixie Mckeon, PERSONNEL INTERVIEWER, FACTORY ENGINEER Admission Date/Time: 09/14/2023 4:48 AM Attending MD: Jg Munguia MD Data Ruthann Rosas was referred to this annual campaign manager for discharge planning and care coordination. Ruthann Rosas was admitted to [facility] for Meningioma (C) [D32.9]. Insurance: Payor: [employer] [...] transport at time of discharge: Family Provider, nurse tech, bed side RN, and nurse management updated. CM/SW Team will continue to follow for coordination of care, discharge planning and offer support as needed. Sherman Jean CLASSROOM TECHNOLOGY COACH, [place] Pager [phone] * Plan of Care - Daksha Ariza RN - 09/17/2023 6:59 AM CDT A&Ox4. VSS w/ HR ck throughout the night. C/o of pain to head/incision, managed w/ PRN pain meds. Denies SOB, N/T, N/V. Incision C/D/I and ALDO. Swelling still present to forehead/eyes. 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 Lives with adult children who are [...] Espino RN - 09/16/2023 1:17 PM CDT [facility] Care Management Follow Up Note Plan: Care Team Actions Needed: MD medical clearance, discharge orders, PT/OT consult Expected discharge date: 09/19/2023 Anticipated Discharge Plan: Likely home pending PT/OT recs Care Coordination Updates: Current Patient Assessment: appropriate, pleasant Barriers/Vulnerabilities: patient continues to require acute medical care Anticipated Transportation Mode: Private Vehicle Contacts: Emergency Contacts Acting Professor (Rel.) Home Phone Work Phone Mobile Phone WERO BRAY (Son) [phone] -- -- SARY ROSAS (Daughter) [phone] -- -- GordonStefany [phone] -- -- Functional Level Prior: Functional Screen (Baseline Prior to Admission) Ambulation: Independent Transferring: Independent Toileting: Independent Bathing: Independent Dressing: Independent Eating: Independent Communication: Understands/communicates without difficulty Swallowing: Swallows foods/liquids without difficulty Meal Preparation: Independent Laundry: Independent Finances: Independent Shopping: Independent Transportation: Drives Independently 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 Lives with adult children who are able to assist Primary Care: Primary Care Primary Care Clinic: [facility] Primary Care Physician: Svitlana Olmos MD [...] Jeronimo RN - 09/15/2023 6:45 PM CDT [facility] Plan of Care Note Assessment: Neuro [...] Delcid RN - 09/15/2023 5:00 PM CDT [facility] Nursing Transfer Note Admission Date/Time: 09/14/2023 4:48 AM Time of transfer: 4:30 PM Transfer from room #: 3620 Accepting nursing unit: [facility] Valuables/belongings sent with patient?: Yes Dentures: No [...] breakfast and bites of lunch, poor appetite. 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 Voiding via commode, SBA/x1 - occasionally dizzy when ambulating. * Initial Assessments - Linda, Trixie Prieto, PERSONNEL INTERVIEWER, FACTORY ENGINEER - 09/15/2023 3:18 PM CDT [facility] Care Management Initial Assessment Plan: Care Team Actions Needed: MD medical clearance, discharge orders, PT/OT consult Expected discharge date: 09/19/2023 Anticipated Discharge Plan: Likely home pending PT/OT recs Admission Info: Reason for Consult: discharge planning Chart Reviewed: discussed with patient, discussed with interdisciplinary team Contacts: Emergency Contacts Acting Professor (Rel.) Home Phone Work Phone Mobile Phone WERO BRAY (Son) [phone] -- -- SARY ROSAS (Daughter) [phone] -- -- Stefany Leyva [phone] -- -- Cognitive capacity prior to admission: oriented Independent with ADLs (Prior to Admission)? 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 Lives with adult children who are [...] Private Vehicle Primary Care: Primary Care Clinic: [facility] Primary Care Physician: Svitlana Olmos MD Functional Level Prior: Functional Screen (Baseline Prior to Admission) Ambulation: Independent Transferring: Independent Toileting: Independent Bathing: Independent Dressing: Independent Eating: Independent Communication: Understands/communicates without difficulty Swallowing: Swallows foods/liquids without difficulty Meal Preparation: Independent Laundry: Independent Finances: Independent Shopping: Independent Transportation: Drives Independently 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 Lives with adult children who are able to assist Insurance: [employer] Readmission Assessment: Additional Comments: Reviewed patient's chart and discussed plan of care with team during care connection. Met with patient, introduced myself and my role as case operator/mental health social worker. Verified demographics. Patient currently lives w/ 3 adult children and 2 grandchildren in a house in [place]. 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 She has been on short-term disability since May and is applying for long-term disability. No reported DME at home. Has support from 7 adult children (all of which live nearby), grandchildren. Patient drives to get to their medical appointments. PCP is Svitlana Olmos MD at [facility]. Admitted for tumor resection. 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 Lives with adult children who are [...] Branch RN - 09/15/2023 5:48 AM CDT [facility] Plan of Care Note Assumed cares [id number] GCS 15, PERRL, RASS 0/-1. A&Ox4. Strong x4. Baseline weakness to RUE. PRN Oxy and Dilaudid given for MURILLO. Telemetry: SR w/ 1st AVB. Some hypotension, see below. Afebrile. LSC on 2LNC. Tolerating clears. 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 Strong cath x1, later able to spontaneously void. T&R Q2hrs. MRI completed. [facility]. Practitioner Notified Note Name of Practitioner notified: Dr. Trivedi, [facility] Time of Practitioner notification: 10:21 PM Reason: No labs ordered for AM. Also, BP decreasing. 80's/60-70's. MAP's holding around 65-70. No neuro changes, asymptomatic. Response: 500ml bolus and labs ordered. [facility]. Practitioner Notified Note Name of Practitioner [...] Adult Potassium Replacement Protocol: goal 3.5 mmol/L [facility] placement bonner for Potassium Replacement Protocol: see [...] (SUBLIMAZE) injection 25-50 mcg 25-50 mcg, Intravenous, [id number], Pain, Starting on Tue09/14/23 at 1213, Until [...] 6 hour recheck draw would be between 8024-1065, use current day AM lab draw. If [...] 6 hour recheck draw would be between 0176-0680, use current day AM lab draw. If [...] 6 hour recheck draw would be between 0687-6794, use current day AM lab draw. If [...] MEAL, First dose (after last modification) on [facility] 09/15/23 at 1300, Until Discontinued, Give [...] TID, First dose (after last modification) on [facility] 09/15/23 at 1400, Until Discontinued, Initially give [...] Pina, IRINA) 0313 (Noted - Provider: Toya Leija, IRINA)0706 [...] RN) 08 (Given - Provider: Hina Flood, IRINA)1409 (Given - Provider: Hina Flood RN)2008 (Not [...] RN)194 (Given - Provider: Laurence Phelan RN) 0805 (Given - Provider: Hina Flood, IRINA)2008 (Given [...] ALERT medication 1943 (Given - Provider: Laurence Phelan, IRINA) 2008 (Given - Provider: Esther Pina, IRINA) [...] RN - Reason: Order parameters not met) 214 (Not Given - Provider: Esther Pina RN [...] % injection 30 mL 30 mL, Intradermal, PROOF PASSER, On Tue09/14/23 at 1730, For 1 dose, [...] 194 (Given - Provider: Laurence Phelan RN) 0805 (Given - Provider: Hina Flood RN)2007 (Given - Provider: Esther Pina RN) 0730 (Given - Provider: Hina Flood RN) traZODone [...] Laurence Phelan RN)1356 (Given - Provider: Hina Flood RN)2111 (Given - Provider: Esther Pina RN) 0227 (Given - Provider: Toya Leija RN)0915 (Given - Provider: Hina Flood, IRINA)1459 (Given - Provider: Hina Flood RN) labetalol (NORMODYNE) injection 10-20 mg 10-20 mg, [...] Toya Leija RN)0916 (Given - Provider: Hina Flood, IRINA)1210 (Given - Provider: Hina Flood, IRINA)1500 (Given [...] Practitioner. documented in this encounter Care Teams University Internship Relationship Specialty Start Date End Date Svitlana Olmos MD [address] [place] [address] PCP - General 05/30/10 documented as of this encounter
--- OUTSIDE RECORDS SUMMARY | 2023-10-07 02:12 | XMS_ITS | Encounter Summary ---
Author Organization [facility] Address [address] [place] [address] Care Team Providers Care Rating Clerk Name Role Phone vSitlana Olmos MD Primary Care Provider [phone] Reason for Visit * Auth/Cert (Routine) Specialty Diagnoses / Procedures Referred By Martir seay Referred To Contact Diagnoses Meningioma (HRC) . Procedures Stealth guided Medial Eyebrow Craniotomy for Meningioma Resection. IMAGE GUIDANCE ADD ON NEURO (*) Referral ID Status Reason Start Date Expiration Date Visits Re quested Visits Authorized [id number] 1 1 Encounter Details Date Type Department Care Team (Late st Contact Info) Description 09/15/2023 12:20 AM CDT Ancillary Procedure [facility] [address] [place] [address] Jg Munguia MD [address] [place] [id number] Social History Tobacco Use Types Packs/Day Years Used Date Smoking Tobacco: Every Day Cigarettes 1 40.2 Started: 02/28/1979; Last attempted to quit: 05/30/2019 Smokeless Tobacco: Never Comments:Smoking History Pac ks/day: quit 06/13/2023 Alcohol Use Standard Drinks/Week Comments No 0 (1 standard drink = 0.6 oz pur e alcohol) [facility] Utilities Answer Date Recorded In the past 12 months has [employer], gas, oil, or water [employer] threatened to shut off services in your [...] place to sleep or slept in a assisted (including now)? No 09/14/2023 Sex and Gender Information Value Date Recorded Sex Assigned at Not on file Gender Identity Not on file Sexual Orientation Not on file documented as of this encounter Plan of Treatment Upcoming Encounters Date Type Department Care Team (Late st Contact Info) Description 10/12/2023 9:00 AM CDT Appointment [facility] [address] [facility] [place] [address] Svitlana Olmos MD [address] [place] [address] Hospital Discharge Follow-up 10/20/2023 10:30 AM CDT Appointment [facility] [address] [place] [address] 12/06/2023 10:20 AM CDT Appointment [facility] [address] [place] [address] Jg Munguia MD [address] [place] [address] 01/03/2024 11:20 AM NUTRITION SERVICES AIDE Appointment formerly [facility] [address] [place] [address] [facility] [address] [place] [address] documented as of this encounter Procedures Procedure [...] INTERPRETATION 1 AV Block sinus ck Hina M [facility] 09/22/2023 8:37 AM CDT Narrative [facility] - 09/22/2023 8:51 AM CDT 1 AV Block ??sinus ck Hina Ida Interface Provider EKG Performing Organization Address [facility] de Phone Number [facility] [address] [place] [id number] * INPATIENT TELEMETRY MONITORING (09/21/2023 11:02 PM CDT) TELE P-R INTERVAL 0.23 [facility] TELE QRS DURATION 0.06 [facility] TELE R-R INTERVAL 1.26 [facility] TELE INTERPRETATION Sinus Ck HR 40s, w/ 1st AVBLaurence RN [facility] 09/21/2023 11:0 2 PM CDT Narrative [facility] - 09/22/2023 2:40 AM CDT Sinus Ck ??HR 40s, w/ 1st AVBLaurence RN Interface Provider EKG Performing Organization Address [facility] Co de Phone Number [facility] [address] [place] [address] * INPATIENT TELEMETRY MONITORING (09/21/2023 7:15 PM [...] PM CDT Sinus Ck ??HR 50's, Esther Pierre, RN Interface Provider EKG Performing Organization Address [facility] Co de Phone Number [facility] [address] [place] [address] * INPATIENT TELEMETRY MONITORING (09/21/2023 10:16 AM CDT) TELE P-R INTERVAL 0.18 [facility] TELE QRS DURATION 0.07 [facility] TELE R-R INTERVAL 1.26 [facility] TELE INTERPRETATION Sinus Ck Hina Prieto RN [facility] 09/21/2023 10:1 6 AM CDT Narrative [facility] - 09/21/2023 10:26 AM CDT Sinus Ck ??Hina Prieto RN Interface Provider EKG Performing Organization Address [facility] Co de Phone Number [facility] [address] [place] [address] * INPATIENT TELEMETRY MONITORING (09/20/2023 7:45 PM CDT) TELE P-R INTERVAL 0.18 [facility] TELE QRS DURATION 0.06 [facility] TELE R-R INTERVAL 0.98 [facility] TELE INTERPRETATION Sinus Ck HR 40-50s, Laurence Phelan RN [facility] 09/20/2023 7:45 PM CDT Narrative [facility] - 09/21/2023 5:53 AM CDT Sinus Ck ??HR 40-50s, Linlei Tapan RN Interface Provider EKG Performing Organization Address [facility] de Phone Number [facility] [address] [place] [address] * INPATIENT TELEMETRY MONITORING (09/20/2023 9:15 AM CDT) TELE P-R INTERVAL 0.17 [facility] TELE QRS DURATION 0.06 [facility] TELE R-R INTERVAL 1.34 [facility] TELE QT 0.52 [facility] TELE INTERPRETATION Sinus Ck Bhmui RN [facility] 09/20/2023 9:15 AM CDT Narrative [facility] - 09/20/2023 10:54 AM CDT Sinus Ck ??Bhumi RN Interface Provider EKG Performing Organization Address [facility] de Phone Number [facility] [address] [place] [address] * INPATIENT TELEMETRY MONITORING (09/19/2023 8:16 PM CDT) TELE P-R INTERVAL 0.15 [facility] TELE QRS DURATION 0.06 [facility] TELE R-R INTERVAL 1.08 [facility] TELE INTERPRETATION Sinus Ck HR 40-50s, Laurence Phelan RN [facility] 09/19/2023 8:16 PM CDT Narrative [facility] - 09/19/2023 11:47 PM CDT Sinus Ck ??HR 40-50s, Laurence Phelan RN Interface Provider EKG Performing Organization Address [facility] de Phone Number [facility] [address] [place] [address] * INPATIENT TELEMETRY MONITORING (09/19/2023 8:13 AM CDT) TELE P-R INTERVAL 0.19 [facility] TELE QRS DURATION 0.05 [facility] TELE R-R INTERVAL 1.34 [facility] TELE QT 0.51 [facility] TELE QTC 0.44 [facility] TELE INTERPRETATION Sinus Ck Kathy Arevalo RN [facility] 09/19/2023 8:13 AM CDT Narrative [facility] - 09/19/2023 11:35 AM CDT Sinus Ck ??Kathy Arevalo RN Interface Provider EKG Performing Organization Address [facility] Co de Phone Number [facility] [address] [place] [address] * INPATIENT TELEMETRY MONITORING (09/18/2023 9:16 AM CDT) TELE P-R INTERVAL 0.17 [facility] TELE QRS DURATION 0.05 [facility] TELE R-R INTERVAL 1.37 [facility] TELE QT 0.49 [facility] TELE INTERPRETATION Sinus Ck IDALIA AREVALO [facility] 09/18/2023 9:16 AM CDT Narrative [facility] - 09/18/2023 10:30 AM CDT Sinus Ck ??IDALIA AREVALO Interface Provider EKG Performing Organization Address [facility] Co de Phone Number [facility] [address] [place] [address] * INPATIENT TELEMETRY MONITORING (09/18/2023 12:28 AM CDT) TELE P-R INTERVAL 0.20 [facility] TELE QRS DURATION 0.07 [facility] TELE R-R INTERVAL 1.43 [facility] TELE QT 0.55 [facility] TELE QTC 0.46 [facility] TELE INTERPRETATION Sinus Ck Andrew Barney RN [facility] 09/18/2023 12:2 8 AM CDT Narrative [facility] - 09/18/2023 12:51 AM CDT Sinus Ck ??Andrew Barney RN Interface Provider EKG Performing Organization Address [facility] Co de Phone Number [facility] [address] [place] [address] * INPATIENT TELEMETRY MONITORING (09/17/2023 1:00 AM [...] RN Interface Provider EKG Performing Organization Address [facility] de Phone Number [facility] [address] [place] [address] * INPATIENT TELEMETRY MONITORING (09/16/2023 3:26 PM CDT) TELE P-R INTERVAL 0.20 [facility] TELE QRS DURATION 0.08 [facility] TELE R-R INTERVAL 1.06 [facility] TELE QT 0.42 [facility] TELE INTERPRETATION Sinus Ck [facility] 09/16/2023 3:26 PM CDT Narrative [facility] - 09/16/2023 3:32 PM CDT Sinus Ck Interface Provider EKG Performing Organization Address [facility] de Phone Number [facility] [address] [place] [address] documented in this encounter Visit Diagnoses Not [...] Arm documented in this encounter Care Teams Rating Clerk Relationship Specialty Start Date End Date Svitlana Olmos MD [address] [place], [place] [id number] PCP - General 05/30/10 documented as of this encounter
--- OUTSIDE RECORDS SUMMARY | 2023-10-07 02:12 | XMS_ITS | Encounter Summary ---
Author Organization [facility] Address [address] [place] [address] Care Team Providers Care County Extension Agent Name Role Phone Svitlana Olmos MD Primary Care Provider [phone] Reason for Visit * Auth/Cert (Routine) Specialty Diagnoses / Procedures Referred By Martir seay Referred To Contact Diagnoses Meningioma (HRC) . Procedures Stealth guided Medial Eyebrow Craniotomy for Meningioma Resection. IMAGE GUIDANCE ADD ON NEURO (*) Referral ID Status Reason Start Date Expiration Date Visits Re quested Visits Authorized [id number] 1 1 Encounter Details Date Type Department Care Team (Latest Contact Info) Description 09/14/2023 6:30 AM CDT Ancillary Procedure [facility] [address] [address] Jg Munguia MD [address] [place] [address] Meningioma (HRC) Social History Tobacco Use Types Packs/Day Years Used Date Smoking Tobacco: Every Day Cigarettes 1 40.2 Started: 02/28/1979; Last attempted to quit: 05/30/2019 Smokeless Tobacco: Never Comments:Smoking History Pac ks/day: quit 06/13/2023 Alcohol Use Standard Drinks/Week Comments No 0 (1 standard drink = 0.6 oz pur e alcohol) [facility] Utilities Answer Date Recorded In the past 12 months has [employer], [employer], or [employer] threatened to shut off services in your [...] place to sleep or slept in a care home (including now)? No 09/14/2023 Sex and Gender Information Value Date Recorded Sex Assigned at Not on file Gender Identity Not on file Sexual Orientation Not on file documented as of this encounter Plan of Treatment Upcoming Encounters Date Type Department Care Team (Late st Contact Info) Description 10/12/2023 9:00 AM CDT Appointment [facility] [address] [place] [address] Svitlana Olmos MD [address] [place] [id number] Hospital Discharge Follow-up 10/20/2023 10:30 AM CDT Appointment [facility] Neurosurgery/Ortho Spine [address] [place] [address] 12/06/2023 10:20 AM CDT Appointment [facility] Neurosurgery[facility]Ortho Spine [address] 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
--- OUTSIDE RECORDS SUMMARY | 2023-10-07 02:13 | XMS_ITS | Encounter Summary ---
Author Organization [email or web address] Address [address] [place] [address] Care Team Providers Care Mold Bunch Trimmer Name Role Phone Svitlana Olmos MD Primary Care Provider [phone] Reason for Visit * Auth/Cert (Routine) Specialty Diagnoses / Procedures Referred By Martir t Referred To Contact Diagnoses Meningioma (C) . Procedures Stealth guided Medial Eyebrow Craniotomy for Meningioma Resection. IMAGE GUIDANCE ADD ON NEURO (*) Referral ID Status Reason Start Date Expiration Date Visits Re quested Visits Authorized [id number] 1 1 Encounter Details Date Type Department Care Team (Late st Contact Info) Description 09/14/2023 7:15 AM CDT - 09/14/2023 11:15 AM CDT Surgery Operating Room [address] [place] [id number] Jg Munguia MD [address] [place] [id number] Stealth guided Medial Eyebrow Craniotomy for Meningioma Resection. Social History Tobacco Use Types Packs/Day Years Used Date Smoking Tobacco: Every Day Cigarettes 1 40.2 Started: 02/28/1979; Last attempted to quit: 05/30/2019 Smokeless Tobacco: Never Comments:Smoking History Pac ks/day: quit 06/13/2023 Alcohol Use Standard Drinks/Week Comments No 0 (1 standard drink = 0.6 oz pur e alcohol) [facility] Utilities Answer Date Recorded In [...] craniotomy for meningoma resection. Complications: none Consults: [facility] medicine Neurocritical Care PT/OT Pre Operative [...] PRN Starting Tue09/28/2023, Oral, No Print/No Fill Loma-3 Fatty Acids (FISH OIL) 1000 MG capsule [...] Date: 12/14/24 If after 48 hours a [facility] digital campaign manager has not yet contacted you, please call [phone] to schedule your procedure. Prep instructions will be confirmed at time of scheduling. Your provider has recommended an appointment in MRI. Because MRI uses powerful magnets, the presence of metal in your body may be a safety hazard or affect a portion of the MRI image. Please inform the systems integrator of any metal or electronic devices in your body and if you have a medical implant card, medical educator card, and/or device controller pleasebring it with [...] Call the Neurosurgery Clinic right away at [phone] if you have: *Any separation of the [...] Take good care, Heriberto Dudley MD (Voy-tek) [facility] Medicine Discharge Instructions to Patient Follow up [...] extremities, please call the Neurosurgery clinic at [phone]. Discharge Follow-Up: Future Appointments Provider Department Center 10/03/2023 11:00 AM (Arrive by 10:45 AM) Svitlana Olmos MD [facility] 10/20/2023 10:30 AM NEUROSURGERY MIGUEL [facility] Neurosurgery/Ortho Spine [address] 12/06/2023 10:20 AM Jg Munguia MD [facility] Neurosurgery/Ortho [address]ine[address] 01/03/2024 11:[address]; EXAM [facility] Dental [facility] also instructed to call clinic or hospital [...] daily (every 24 hours). 100 13 06/01/2005 Loma-3 Fatty Acids (FISH OIL) 1000 MG capsule [...] Dudley MD - 09/22/2023 8:53 AM CDT [facility] General Medicine / Hospitalist Staff Progress Note Patient: Ruthann Rosas : 1965 PCP: MD BRISA Baptiste [facility] ATT: Jg Munguia MD DOS: 09/22/2023 LOS: [...] Olmos MD References: Referral Connection Specialty Connection [facility] Consult Page Question Answer Comment Appointment Urgency? [...] Take good care, Heriberto Dudley MD (Voy-tek) [facility] Medicine Event Monitor References: Referral Connection Specialty Connection Brisa Rodriguez Consult Page Question Answer Comment Appointment Urgency? Urgent (patient needs to be seen within one week) Location: [facility] Is patient appropriate candidate for self hookup [...] Department Center 10/20/2023 10:30 AM NEUROSURGERY MIGUEL [facility] [address] 12/06/2023 10:[address] M[address] [facility] [address] 01/03/2024 11:20 AM Latha Burns, [facility] AV GD AV Dental Billing based on: Time Total time for the visit was 50 minutes including, but not limited to, slx-guct-nn-face time spent reviewing records, counseling, and coordination of care. Heriberto (Joan-angelicaClara Dudley MD [facility] Medicine Medications: acetaminophen 1,000 [...] mg Oral BID lidocaine 30 mL Intradermal Editor Book methocarbamol 500 mg Oral QID polyethylene glycol [...] Dudley MD - 09/21/2023 4:24 PM CDT [facility] General Medicine / Hospitalist Staff Progress Note Patient: Ruthann Rosas : 1965 PCP: Svitlana Olmos MD [facility]* ATT: Jg Munguia MD DOS: 09/21/2023 [...] Department Center 10/20/2023 10:30 AM NEUROSURGERY MIGUEL [facility] [address] 12/06/2023 10:[address] [facility] [place] [address] 01/03/2024 11:20 AM Latha Burns, [facility] AV GD AV Dental Billing based on: Time Total time for the visit was 50 minutes including, but not limited to, qsc-tpfd-qm-face time spent reviewing records, counseling, and coordination of care. Heriberto Rivera-ramon Dudley MD [facility] / [facility] Medicine Medications: acetaminophen 1,000 mg [...] mg Oral BID lidocaine 30 mL Intradermal Editor Book methocarbamol 500 mg Oral QID polyethylene glycol [...] Net 240 ml Labs/imaging: CBC Recent Labs 09/16/2362809/17/2362609/18/23 0909/19/23 0628 WBC 14.8* 11.0* 9.1 10.6* [...] 09/21/2023 3:59 PM CDT Neurosurgery Progress Note [facility] Date of service: 09/21/2023 Assessment 58 year [...] 450 x10(9)/L Final * Svitlana Bazan APRN, SILVERING DEPARTMENT SUPERVISOR - 09/20/2023 11:[address] [facility] Inpatient Neurosurgery Daily Progress Note Today's [...] with the above stated plan. Svitlana Bazan, CUSHION INSTALLER, SILVERING DEPARTMENT SUPERVISOR 09/20/2023, 11:28 AM Neurosurgery Service Pager [phone] Subjective: No Acute Events Overnight. Juwan reports [...] Dudley MD - 09/20/2023 9:39 AM CDT [facility] General Medicine / Hospitalist Staff Progress Note Patient: Ruthann Rosas : 1965 PCP: Svitlana Olmos MD [facility]* ATT: Jg Munguia MD DOS: [...] Department Center 10/20/2023 10:30 AM NEUROSURGERY [facility]IG[facility]EL [facility] KIMMIE [address] 12/06/2023 10:20 AM Jg Munguia MD [facility] [address] 01/03/2024 11:20 AM Latha Burns, JD AV GD AV Dental Billing based on: Time Total time for the visit was 50 minutes including, but not limited to, vlw-zubd-gb-face time spent reviewing records, counseling, and coordination of care. Heriberto Dudley MD (Voy-tek) [facility] Medicine Medications: acetaminophen 1,000 mg [...] mg Oral BID lidocaine 30 mL Intradermal Editor Book methocarbamol 500 mg Oral QID polyethylene glycol [...] 09/20/23 0941 Labs/imaging: CBC Recent Labs 09/16/23 0609/17/23 0609/18/23 0909/19/23 0628 WBC 14.8* 11.0* 9.1 10.6* RBC 4.02 4.00 4.48 4.49 HGB 11.3* 11.3* 12.7 12.7 HCT 35.3 34.5* 38.8 38.3 MCV 87.8 86.3 86.6 85.3 MCH 28.1 28.3 28.3 28.3 MCHC 32.0 32.8 32.7 33.2 RDW 13.7 13.6 13.4 13.2 PLTS 204 211 221 266 BMP Recent Labs 09/16/23 0609/17/23 0609/18/23 0909/19/23 0628 SODIUM 140 139 136 [...] 09/19/2023 8:14 AM CDT Neurosurgery Progress Note [facility] Date of service: 09/19/2023 Assessment 58 year [...] - 450 x10(9)/L Final * Therese Dela Cruz APRN, SILVERING DEPARTMENT SUPERVISOR - 09/18/2023 8:05 AM CDT Neurosurgery [...] above stated plan Therese Dela Cruz APRN, CNP, 09/18/2023, 8:06 AM Neurosurgery Pager# [phone] * Therese Dela Cruz APRN, CNP - [...] clean, dry and intact; open to air. [place] Respiratory: Breathing unlabored Abdomen: no distention noted [...] APRN, JASON, 09/17/2023, 12:28 PM Neurosurgery Pager# [phone] t * Hina Nielson PA-C - 09/16/2023 7:32 AM CDT Neurosurgery Progress Note [facility] Date of service: 09/16/2023 Assessment 58 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 Munguia on 09/14/23. Plan: - Neurosurgery primary - Appreciate [facility] assistance with management - Ok for floor [...] 09/15/2023 2:12 PM CDT Neurosurgery Progress Note [facility] Date of service: 09/15/2023 Assessment [...] MD - 09/14/2023 12:45 PM CDT [facility] Brief Operative Progress Note Surgery [...] 1:31 PM CDTAssociated Order(s): INTERNAL MEDICINE CONSULT [facility] Medicine Consultation Date of Service: [...] monitor upon discharge (ordered) Chiquita Gaffney MD [facility] Medicine * Matthieu Mazariegos PA-C - [...] - Tyelnol and oxycodone for pain - BAG TESTER Chantix for smoking cessation - PT/OT/COATER HAND/Rehab Cardio: - BP above - Labetalol and [...] ICU Course: 09/13: Post op tumor resection. [facility] admission 718: No acute events overnight. Some [...] no further BP issues. Billing based on [facility] MAXIMUS Ceja, FAAN Critical care neurology [phone] * Aretha Morales MBBS - 09/14/2023 9:43 [...] - Tyelnol and oxycodone for pain - PT/OT/COATER HAND/Rehab Cardio: - BP above - Labetalol and [...] medications, documenting and coordinating patient's care. MAXIMUS Ceaj, FAAN Critical care neurology [phone] CHIEF COMPLAINT: Post op tumor resection HISTORY [...] ICU Course: 09/13: Post op tumor resection. [facility] admission PAST MEDICAL HISTORY: Past Medical History: [...] 9:00 AM CDT Appointment [facility] [place] [address] Svitlana Olmos MD [facility] [place] [address] Hospital Discharge Follow-up 10/20/2023 10:30 AM CDT Appointment [facility] Neurosurgery/Ortho Spine [address] [place] [address] 12/06/2023 10:20 AM CDT Appointment [facility] Neurosurgery/Ortho Spine [address] [place] [address] Jg Munguia MD [address] [place] [address] 01/03/2024 11:20 AM BRANCH CHIEF Appointment [facility] Dental [facility] [place] [address] [place] [address] [place] [address] [place], [place] [id number] Scheduled Orders Name Type Priority Associated Diagnoses [...] CDT [facility] Performing Location Lab S104 09/22/2023 1:03 PM CDT [facility] Blood 09/22/2023 1:01 PM CDT 09/22/2023 1:03 PM CDT Jg Munguia MD LAB_1 Performing Organization Address [facility] Co de Phone Number [address] * Glucose, Whole Blood POCT (09/22/2023 7:31 AM CDT) Glucose, Whole Blood 96 70 - 180 mg/dL 09/22/2023 7:32 AM CDT [facility] Location Lab S104 09/22/2023 7:32 AM CDT [facility] Blood 09/22/2023 7:31 AM CDT 09/22/2023 7:32 AM CDT Jg Munguia MD LAB_1 Performing Organization Address [facility] Co de Phone Number [address] * Glucose, Whole Blood POCT (09/21/2023 9:43 PM CDT) Glucose, Whole Blood 111 70 - 180 mg/dL 09/21/2023 9:44 PM CDT [facility] Performing Location Lab S104 09/21/2023 9:44 PM CDT [facility] Blood 09/21/2023 9:43 PM CDT 09/21/2023 9:44 PM CDT Jg Munguia MD LAB_1 Performing Organization Address [facility]/ZIP Co de Phone Number [address] * Glucose, Whole Blood POCT (09/21/2023 5:04 PM CDT) Glucose, Whole Blood 105 70 - 180 mg/dL 09/21/2023 5:06 PM CDT [facility] Performing Location RCLab S104 09/21/2023 5:06 PM CDT [facility] Blood 09/21/2023 5:04 PM CDT 09/21/2023 5:05 PM CDT Jg Munguia MD LAB_1 Performing Organization Address [facility] Co de Phone Number [address] * Glucose, Whole Blood POCT (09/21/2023 2:07 PM CDT) Glucose, Whole Blood 127 70 - 180 mg/dL 09/21/2023 2:08 PM CDT [facility] Performing Location RCLab S104 09/21/2023 2:08 PM CDT [facility] Blood 09/21/2023 2:07 PM CDT 09/21/2023 2:08 PM CDT Jg Munguia MD LAB_1 Performing Organization Address [facility] Co de Phone Number [address] * Glucose, Whole Blood POCT (09/21/2023 8:12 AM CDT) Glucose, Whole Blood 97 70 - 180 mg/dL 09/21/2023 8:13 AM CDT [facility] Performing Location RCLab S104 09/21/2023 8:13 AM CDT [facility] Blood 09/21/2023 8:12 AM CDT 09/21/2023 8:13 AM CDT Jg Munguia MD LAB_1 Performing Organization Address [facility]/[place] [address], [facility] * Magnesium (09/21/2023 6:29 AM CDT) Magnesium 2.1 1.6 - 2.6 mg/dL 09/21/2023 7:08 AM [facility] Blood Venipuncture / Unknown 09/21/2023 6:29 AM CDT 09/21/2023 6:35 AM CDT Juan Dudley MD LAB_[address] * Basic Metabolic Panel (09/21/2023 6:29 AM CDT) Pathologist [facility] Sodium 136 136 - 145 mmol/L 09/21/2023 7:08 AM [facility] Potassium 4.5 3.5 - 5.1 mmol/L 09/21/2023 7:08 AM [facility] Chloride 104 98 - 109 mmol/L 09/21/2023 7:08 AM [facility] CO2 25 20 - 29 mmol/L 09/21/2023 7:08 AM [facility] Anion Gap 7 6 - 16 mmol/L 09/21/2023 7:08 AM [facility] Calcium 9.5 8.4 - 10.4 mg/dL 09/21/2023 7:08 AM [facility] BUN 17 7 - 26 mg/dL 09/21/2023 7:08 AM [facility] Creatinine 0.61 0.55 - 1.02 mg/dL 09/21/2023 7:08 AM [facility] Glucose 94 70 - 100 mg/dL 09/21/2023 7:08 AM [facility] Comment:The given reference range is for the fasting state. Non-fasting reference range for glucose is 70 - 180 mg/dL. GFR, Estimated >60 >60 mL/min/1.7 3m2 09/21/2023 7:08 AM [facility] Blood Venipuncture / Unknown 09/21/2023 6:29 AM CDT 09/21/2023 6:35 AM CDT Juan Dudley MD LAB_1 Performing Organization Address [facility]/ZIP Co de Phone Number [address] * Glucose, Whole Blood POCT (09/20/2023 10:21 PM CDT) Glucose, Whole Blood 93 70 - 180 mg/dL 09/20/2023 10:23 PM CDT [facility] Performing Location Lab S104 09/20/2023 10:23 PM CDT [facility] Blood 09/20/2023 10:2 1 PM CDT 09/20/2023 10:23 PM CDT Jg Munguia MD LAB_1 Performing Organization Address [facility] Co de Phone Number [address] * Glucose, Whole Blood POCT (09/20/2023 3:23 PM CDT) Glucose, Whole Blood 116 70 - 180 mg/dL 09/20/2023 3:24 PM CDT [facility] Performing Location Lab S104 09/20/2023 3:24 PM CDT [facility] Blood 09/20/2023 3:23 PM CDT 09/20/2023 3:24 PM CDT Jg Munguia MD LAB_1 Performing Organization Address [facility]/ZIP Co de Phone Number [address] * Glucose, Whole Blood POCT (09/20/2023 11:32 AM CDT) Glucose, Whole Blood 154 70 - 180 mg/dL 09/20/2023 11:34 AM CDT [facility] POCT Comment 1 MD/RN Notified 09/20/2023 11:34 AM CDT [facility] Performing Location Lab S104 09/20/2023 11:34 AM CDT [facility] Blood 09/20/2023 11:3 2 AM CDT 09/20/2023 11:34 AM CDT Jg Munguia MD LAB_1 Performing Organization Address [facility]/ZIP Co de Phone Number [address] * Glucose, Whole Blood POCT (09/20/2023 7:42 AM CDT) Pathologist [facility] Glucose, Whole Blood 101 70 - 180 mg/dL 09/20/2023 7:43 AM CDT [facility] Performing Location RCLab S104 09/20/2023 7:43 AM CDT [facility] Blood 09/20/2023 7:42 AM CDT 09/20/2023 7:43 AM CDT Jg Munguia MD LAB_1 Performing Organization Address [facility] Co de Phone Number [address] * Extra Lavender top tube (09/20/2023 6:39 AM CDT) Pathologist [facility] Extra Lavender Top Drawn Specimen will be held for 3 days 09/20/2023 8:00 AM CDT [facility] Blood Venipuncture / Unknown 09/20/2023 6:39 AM CDT 09/20/2023 6:59 AM CDT Jg Munguia MD LAB_1 Performing Organization Address [facility] Co de Phone Number [address] * Liver Panel(Hepatic Function Panel) (09/20/2023 6:39 AM CDT) Alkaline Phosphatase 71 40 - 150 U/L 09/20/2023 7:39 AM CDT [facility] Bilirubin, Total 0.2 0.2 - 1.2 mg/dL 09/20/2023 7:39 AM CDT [facility] Bilirubin, Direct 0.1 0.0 - 0.5 mg/dL 09/20/2023 7:39 AM CDT [facility] AST (SGOT) 10 10 - 40 U/L 09/20/2023 7:39 AM CDT [facility] ALT (SGPT) 28 <=55 U/L 09/20/2023 7:39 AM CDT [facility] Protein, Total 6.5 6.4 - 8.3 g/dL 09/20/2023 7:39 AM CDT [facility] Albumin 3.5 3.5 - 5.0 g/dL 09/20/2023 7:39 AM CDT [facility] Blood Venipuncture / Unknown 09/20/2023 6:39 AM CDT 09/20/2023 6:58 AM CDT Chiquita Smith MD LAB_[address] * Glucose, Whole Blood POCT (09/19/2023 10:59 PM CDT) Glucose, Whole Blood 95 70 - 180 mg/dL 09/19/2023 11:01 PM CDT [facility] Performing Location Lab S104 09/19/2023 11:01 PM CDT [facility] Blood 09/19/2023 10:5 9 PM CDT 09/19/2023 11:00 PM CDT Jg Munguia MD LAB_[address] * Glucose, Whole Blood POCT (09/19/2023 6:13 PM CDT) Glucose, Whole Blood 98 70 - 180 mg/dL 09/19/2023 6:14 PM CDT [facility] Performing Location RCLab S104 09/19/2023 6:14 PM CDT [facility] Blood 09/19/2023 6:13 PM CDT 09/19/2023 6:14 PM CDT Jg Munguia MD LAB_[address] * EJECTION FRACTION (09/19/2023 1:43 PM CDT) EF 70 % PROSOLV EF test type ECHO PROSOLV 09/19/2023 1:43 PM CDT Chiquita Smith MD [facility] CATH LA B/RH Performing Organization Address [facility] Co de Phone Number PROSOLV [address] [place] [address] * Cardiac Routine Echocardiogram (09/19/2023 1:43 PM [...] MD HEART CENTER ECHO/RH Performing Organization Address [facility] Co de Phone Number PROSOLV [address] [place] [address] * (ABNORMAL) Glucose, Whole Blood POCT (09/19/2023 12:03 PM CDT) Glucose, Whole Blood 186(H) 70 - 180 mg/dL 09/19/2023 12:04 PM CDT [facility] POCT Comment 1 MD/RN Notified 09/19/2023 12:04 PM CDT [facility] Performing Location RCLab S104 09/19/2023 12:04 PM CDT [facility] Blood 09/19/2023 12:0 3 PM CDT 09/19/2023 12:04 PM CDT Jg Munguia MD LAB_1 Performing Organization Address [facility] Co de Phone Number [address] * ECG 12-Lead Routine (Lab perform) (09/19/2023 9:43 AM CDT) EKG Completed 09/19/2023 12:00 PM CDT [facility] Other Specimen Type Non-blood Collection / Unknown 09/19/2023 9:43 AM CDT 09/19/2023 10:30 AM CDT Chiquita Smith MD LAB_1 Performing Organization Address [facility] Co de Phone Number [address] * Ecg 12-Lead Routine (MUSE) (09/19/2023 9:36 AM CDT) Ventricular Rate 53 BPM MUSE GHP Atrial Rate 53 BPM MUSE GHP P-R Interval 146 ms MUSE GHP QRS Duration 76 ms MUSE GHP QT 522 ms MUSE GHP QTc 489 ms MUSE GHP P [place] 27 degrees MUSE GHP R [place] 1 degrees MUSE GHP T [place] 27 degrees MUSE GHP 09/19/2023 9:36 AM CDT Narrative MUSE GHP - 09/19/2023 10:23 AM CDT Sinus bradycardia Minimal voltage criteria for LVH, may be normal variant Cannot rule out Inferior infarct (cited on or before 26-DEC-2019) Abnormal ECG When compared with ECG of 31-AUG-2023 10:50, PA interval has decreased Confirmed by Anaid Garcia ([id number]) on 09/19/2023 10:23:02 AM Procedure Note Anaid Garcia MD - 09/19/2023 Sinus bradycardia Minimal voltage criteria for LVH, may be normal variant Cannot rule out Inferior infarct (cited on or before 26-DEC-2019) Abnormal ECG When compared with ECG of 31-AUG-2023 10:50, PA interval has decreased Confirmed by Anaid Garcia ([id number]) on 09/19/2023 10:23:02 AM Chiquita Smith MD EKG Performing Organization Address City/[facility]/ZIP Co de Phone Number [facility] [address] [place] [address] * Glucose, Whole Blood POCT (09/19/2023 9:05 AM CDT) Glucose, Whole Blood 119 70 - 180 mg/dL 09/19/2023 9:06 AM [facility] Performing Location RCLab S104 09/19/2023 9:06 AM [facility] Blood 09/19/2023 9:05 AM CDT 09/19/2023 9:06 AM CDT Jg Munguia MD LAB_1 [facility] [address] [place] [address], [facility] * (ABNORMAL) Lipid Panel & Direct LDL (if Needed) (09/19/2023 6:28 AM CDT) Cholesterol 186 0 - 199 mg/dL 09/19/2023 10:55 PM [facility] Triglyceride 215(H) <=149 mg/dL 09/19/2023 10:55 PM [facility] HDL Cholesterol 37(L) >=40 mg/dL 10:55 PM [facility] LDL, Calculated 106 <130 mg/dL 10:55 PM [facility] Non HDL Chol, Calculated 149 <=159 mg/dL 09/19/2023 10:55 PM [facility] Cholesterol/HDL Ratio 5.0 <=5.0 09/19/2023 10:55 PM [facility] Blood Venipuncture / Unknown 09/19/2023 6:28 AM CDT 09/19/2023 6:59 AM CDT Chiquita Smith MD LAB_1 Performing Organization Address [facility] Co de Phone Number [address] * TSH with reflex to fT4 (not for treatment monitoring) (09/19/2023 6:28 AM CDT) Pathologist [facility] TSH, Reflex 0.92 0.30 - 4.50 uIU/mL 09/19/2023 11:13 PM [facility] Blood Venipuncture / Unknown 09/19/2023 6:28 AM CDT 09/19/2023 6:59 AM CDT Chiquita Smith MD LAB_1 Performing Organization Address [facility] Co de Phone Number [address] * (ABNORMAL) Complete Blood Count-No Diff (09/19/2023 6:28 AM CDT) Pathologist [facility] WBC 10.6(H) 3.5 - 10.5 x10(9)/L 09/19/2023 7:12 AM [facility] RBC 4.49 3.90 - 5.03 x10(12)/L 09/19/2023 7:12 AM [facility] Hemoglobin 12.7 12.0 - 15.5 g/dL 09/19/2023 7:12 AM [facility] HCT 38.3 34.9 - 44.5 % 09/19/2023 7:12 AM [facility] MCV 85.3 80.0 - 100.0 fL 09/19/2023 7:12 AM [facility] MCH 28.3 27.6 - 33.3 pg 09/19/2023 7:12 AM [facility] MCHC 33.2 31.5 - 35.2 g/dL 09/19/2023 7:12 AM [facility] RDW 13.2 11.9 - 15.5 % 09/19/2023 7:12 AM [facility] Platelets 266 150 - 450 x10(9)/L 09/19/2023 7:12 AM [facility] Automated NRBC 0 <=0 /100 WBC 09/19/2023 7:12 AM [facility] Blood Venipuncture / Unknown 09/19/2023 6:28 AM CDT 09/19/2023 6:59 AM T Sherman Trivedi MD LAB_[address] [address], [facility] * Basic Metabolic Panel (09/19/2023 6:28 AM CDT) Sodium 136 136 - 145 mmol/L 09/19/2023 7:36 AM [facility] Potassium 4.3 3.5 - 5.1 mmol/L 09/19/2023 7:36 AM [facility] Chloride 104 98 - 109 mmol/L 09/19/2023 7:36 AM [facility] CO2 23 20 - 29 mmol/L 09/19/2023 7:36 AM [facility] Anion Gap 9 6 - 16 mmol/L 09/19/2023 7:36 AM [facility] Calcium 9.4 8.4 - 10.4 mg/dL 09/19/2023 7:36 AM [facility] BUN 13 7 - 26 mg/dL 09/19/2023 7:36 AM [facility] Creatinine 0.55 0.55 - 1.02 mg/dL 09/19/2023 7:36 AM [facility] Glucose 95 70 - 100 mg/dL 09/19/2023 7:36 AM [facility] Comment:The given reference range is for the fasting state. Non-fasting reference range for glucose is 70 - 180 mg/dL. GFR, Estimated >60 >60 mL/min/1.7 3m2 09/19/2023 7:36 AM [facility] Blood Venipuncture / Unknown 09/19/2023 6:28 AM CDT 09/19/2023 6:59 AM CDT Sherman Trivedi MD LAB_1 Performing Organization Address [facility] Co de Phone Number [address] * Phosphorus (09/19/2023 6:28 AM CDT) Phosphorus 3.2 2.3 - 4.7 mg/dL 09/19/2023 7:36 AM CDT [facility] Blood Venipuncture / Unknown 09/19/2023 6:28 AM CDT 09/19/2023 6:59 AM CDT Sherman Trivedi MD LAB_1 Performing Organization Address [facility] Phone [address] * Magnesium (09/19/2023 6:28 AM CDT) Magnesium 2.1 1.6 - 2.6 mg/dL 09/19/2023 7:36 AM CDT [facility] Blood Venipuncture / Unknown 09/19/2023 6:28 AM CDT 09/19/2023 6:59 AM CDT Sherman Trivedi MD LAB_1 Performing Organization Address [facility] de Phone Number [address] * Glucose, Whole Blood POCT (09/18/2023 9:25 PM CDT) Glucose, Whole Blood 102 70 - 180 mg/dL 09/18/2023 9:26 PM CDT [facility] Performing Location RCLab S104 09/18/2023 9:26 PM CDT [facility] Blood 09/18/2023 9:25 PM CDT 09/18/2023 9:26 PM CDT Jg Munguia MD LAB_1 Performing Organization Address [facility] Co de Phone Number [address] * Magnesium (09/18/2023 6:10 PM CDT) Magnesium 2.4 1.6 - 2.6 mg/dL 09/18/2023 6:41 PM CDT [facility] Blood Venipuncture / Unknown 09/18/2023 6:10 PM CDT 09/18/2023 6:13 PM CDT Jg Munguia MD LAB_[address] * Glucose, Whole Blood POCT (09/18/2023 4:01 PM CDT) Glucose, Whole Blood 95 70 - 180 mg/dL 09/18/2023 4:02 PM CDT [facility] Performing Location Lab S104 09/18/2023 4:02 PM CDT [facility] Blood 09/18/2023 4:01 PM CDT 09/18/2023 4:02 PM CDT Jg Munguia MD LAB_1 Performing Organization Address [facility]/ZIP Co de Phone Number [address] * Glucose, Whole Blood POCT (09/18/2023 12:37 PM CDT) Glucose, Whole Blood 142 70 - 180 mg/dL 09/18/2023 12:38 PM CDT [facility] Performing Location Lab S104 09/18/2023 12:38 PM CDT [facility] Blood 09/18/2023 12:3 7 PM CDT 09/18/2023 12:38 PM CDT Jg Munguia MD LAB_[address] * Complete Blood Count-No Diff (09/18/2023 9:00 AM CDT) WBC 9.1 3.5 - 10.5 x10(9)/L 09/18/2023 9:12 AM [facility] RBC 4.48 3.90 - 5.03 x10(12)/L 09/18/2023 9:12 AM [facility] Hemoglobin 12.7 12.0 - 15.5 g/dL 09/18/2023 9:12 AM [facility] HCT 38.8 34.9 - 44.5 % 09/18/2023 9:12 AM [facility] MCV 86.6 80.0 - 100.0 fL 09/18/2023 9:12 AM [facility] MCH 28.3 27.6 - 33.3 pg 09/18/2023 9:12 AM [facility] MCHC 32.7 31.5 - 35.2 g/dL 09/18/2023 9:12 AM [facility] RDW 13.4 11.9 - 15.5 % 09/18/2023 9:12 AM [facility] Platelets 221 150 - 450 x10(9)/L 09/18/2023 9:12 AM [facility] Automated NRBC 0 <=0 /100 WBC 09/18/2023 9:12 AM [facility] Blood Venipuncture / Unknown 09/18/2023 9:00 AM CDT 09/18/2023 9:08 AM CDT Sherman Trivedi MD LAB_1 Performing Organization Address [facility]/State/[facility] Co de Phone Number [address] * (ABNORMAL) Basic Metabolic Panel (09/18/2023 9:00 AM CDT) Sodium 136 136 - 145 mmol/L 09/18/2023 9:35 AM [facility] Potassium 4.0 3.5 - 5.1 mmol/L 09/18/2023 9:35 AM [facility] Comment:Specimen slightly he molyzed. Hemolysis may affect result. Chloride 105 98 - 109 mmol/L 09/18/2023 9:35 AM [facility] CO2 23 20 - 29 mmol/L 09/18/2023 9:35 AM [facility] Anion Gap 8 6 - 16 mmol/L 09/18/2023 9:35 AM [facility] Calcium 9.5 8.4 - 10.4 mg/dL 09/18/2023 9:35 AM [facility] BUN 14 7 - 26 mg/dL 09/18/2023 9:35 AM [facility] Creatinine 0.59 0.55 - 1.02 mg/dL 09/18/2023 9:35 AM [facility] Glucose 107(H) 70 - 100 mg/dL 09/18/2023 9:35 AM [facility] Comment:The given reference range is for the fasting state. Non-fasting reference range for glucose is 70 - 180 mg/dL. GFR, Estimated >60 >60 mL/min/1.7 3m2 09/18/2023 9:35 AM [facility] Blood Venipuncture / Unknown 09/18/2023 9:00 AM CDT 09/18/2023 9:08 AM CDT Sherman Trivedi MD LAB_1 Performing Organization Address City/[facility] Co de Phone Number [address] * Phosphorus (09/18/2023 9:00 AM CDT) Phosphorus 2.9 2.3 - 4.7 mg/dL 09/18/2023 9:35 AM T [facility] Blood Venipuncture / Unknown 09/18/2023 9:00 AM CDT 09/18/2023 9:08 AM CDT Sherman Trivedi MD LAB_1 Performing Organization Address City/[facility] Co de Phone Number [address] * Magnesium (09/18/2023 9:00 AM CDT) Magnesium 1.9 1.6 - 2.6 mg/dL 09/18/2023 9:35 AM [facility] Blood Venipuncture / Unknown 09/18/2023 9:00 AM CDT 09/18/2023 9:08 AM CDT Sherman Trivedi MD LAB_1 Performing Organization Address [facility]/ZIP Co de Phone Number [address] * Glucose, Whole Blood POCT (09/18/2023 7:40 AM CDT) Glucose, Whole Blood 109 70 - 180 mg/dL 09/18/2023 7:41 AM CDT [facility] Performing Location RCLab S104 09/18/2023 7:41 AM CDT [facility] Blood 09/18/2023 7:40 AM CDT 09/18/2023 7:41 AM CDT Jg Munguia MD LAB_1 Performing Organization Address [facility] Co de Phone [address] * Glucose, Whole Blood POCT (09/17/2023 9:54 PM CDT) Glucose, Whole Blood 134 70 - 180 mg/dL 09/17/2023 9:55 PM CDT [facility] Performing Location RCLab S104 09/17/2023 9:55 PM CDT [facility] Blood 09/17/2023 9:54 PM CDT 09/17/2023 9:55 PM CDT Jg Munguia MD LAB_1 Performing Organization Address [facility] Co de Phone Number [address] * Glucose, Whole Blood POCT (09/17/2023 8:32 AM CDT) Glucose, Whole Blood 118 70 - 180 mg/dL 09/17/2023 8:34 AM CDT [facility] Performing Location RCLab S104 09/17/2023 8:34 AM CDT [facility] Blood 09/17/2023 8:32 AM CDT 09/17/2023 8:34 AM CDT Jg Munguia MD LAB_[address] * (ABNORMAL) Complete Blood Count-No Diff (09/17/2023 6:27 AM CDT) WBC 11.0(H) 3.5 - 10.5 x10(9)/L 09/17/2023 6:37 AM [facility] RBC 4.00 3.90 - 5.03 x10(12)/L 09/17/2023 6:37 AM [facility] Hemoglobin 11.3(L) 12.0 - 15.5 g/dL 09/17/2023 6:37 AM [facility] HCT 34.5(L) 34.9 - 44.5 % 09/17/2023 6:37 AM [facility] MCV 86.3 80.0 - 100.0 fL 09/17/2023 6:37 AM [facility] MCH 28.3 27.6 - 33.3 pg 09/17/2023 6:37 AM [facility] MCHC 32.8 31.5 - 35.2 g/dL 09/17/2023 6:37 AM [facility] RDW 13.6 11.9 - 15.5 % 09/17/2023 6:37 AM [facility] Platelets 211 150 - 450 x10(9)/L 09/17/2023 6:37 AM [facility] Automated NRBC 0 <=0 /100 WBC 09/17/2023 6:37 AM [facility] Blood Venipuncture Butterfly / Unknown 09/17/2023 6:27 AM CDT 09/17/2023 6:32 AM CDT Sherman Trivedi MD LAB_[address] * (ABNORMAL) Basic Metabolic Panel (09/17/2023 6:27 AM CDT) Pathologist [facility] Sodium 139 136 - 145 mmol/L 09/17/2023 6:59 AM T [facility] Potassium 4.1 3.5 - 5.1 mmol/L 09/17/2023 6:59 AM [facility] Chloride 109 98 - 109 mmol/L 09/17/2023 6:59 AM [facility] CO2 23 20 - 29 mmol/L 09/17/2023 6:59 AM [facility] Anion Gap 7 6 - 16 mmol/L 09/17/2023 6:59 AM [facility] Calcium 9.6 8.4 - 10.4 mg/dL 09/17/2023 6:59 AM [facility] BUN 14 7 - 26 mg/dL 09/17/2023 6:59 AM [facility] Creatinine 0.54(L) 0.55 - 1.02 mg/dL 09/17/2023 6:59 AM [facility] Glucose 121(H) 70 - 100 mg/dL 09/17/2023 6:59 AM [facility] Comment:The given reference range is for the fasting state. Non-fasting reference range for glucose is 70 - 180 mg/dL. GFR, Estimated >60 >60 mL/min/1.7 3m2 09/17/2023 6:59 AM [facility] Blood Venipuncture Butterfly / Unknown 09/17/2023 6:27 AM CDT 09/17/2023 6:32 AM CDT Sherman Trivedi MD LAB_1 Performing Organization Address [facility] Co de Phone Number [address] * Phosphorus (09/17/2023 6:27 AM CDT) Phosphorus 3.4 2.3 - 4.7 mg/dL 09/17/2023 6:59 AM [facility] Blood Venipuncture Butterfly / Unknown 09/17/2023 6:27 AM CDT 09/17/2023 6:32 AM CDT Sherman Trivedi MD LAB_1 Performing Organization Address [facility] Co de Phone Number [address] * Magnesium (09/17/2023 6:27 AM CDT) Magnesium 2.1 1.6 - 2.6 mg/dL 09/17/2023 6:59 AM CDT [facility] Blood Venipuncture Butterfly / Unknown 09/17/2023 6:27 AM CDT 09/17/2023 6:32 AM CDT Sherman Trivedi MD LAB_1 Performing Organization Address City/[facility]/ZIP Co de Phone Number [address] * Glucose, Whole Blood POCT (09/16/2023 9:46 PM CDT) Glucose, Whole Blood 140 70 - 180 mg/dL 09/16/2023 9:48 PM CDT [facility] Performing Location Lab S104 09/16/2023 9:48 PM CDT [facility] Blood 09/16/2023 9:46 PM CDT 09/16/2023 9:48 PM CDT Jg Munguia MD LAB_1 Performing Organization Address [facility] Co de Phone Number [address] * MAGNESIUM (09/16/2023 6:49 PM CDT) Magnesium 2.0 1.6 - 2.6 mg/dL 09/16/2023 7:16 PM CDT [facility] Blood Venipuncture / Unknown 09/16/2023 6:49 PM CDT 09/16/2023 6:53 PM CDT Jg Munguia MD LAB_1 Performing Organization Address [facility] Co de Phone Number [address] * Glucose, Whole Blood POCT (09/16/2023 4:31 PM CDT) Glucose, Whole Blood 118 70 - 180 mg/dL 09/16/2023 4:32 PM CDT [facility] Performing Location RCLab S104 09/16/2023 4:32 PM CDT [facility] Blood 09/16/2023 4:31 PM CDT 09/16/2023 4:32 PM CDT Jg Munguia MD LAB_1 Performing Organization Address [facility]/ZIP Co de Phone Number [address] * Glucose, Whole Blood POCT (09/16/2023 12:03 PM CDT) Glucose, Whole Blood 176 70 - 180 mg/dL 09/16/2023 12:05 PM CDT [facility] Performing Location Lab S104 09/16/2023 12:05 PM CDT [facility] Blood 09/16/2023 12:0 3 PM CDT 09/16/2023 12:05 PM CDT Jg Munguia MD LAB_1 Performing Organization Address [facility] Co de Phone Number [address] * Glucose, Whole Blood POCT (09/16/2023 8:00 AM CDT) Glucose, Whole Blood 133 70 - 180 mg/dL 09/16/2023 8:01 AM [facility] Performing Location Lab S104 09/16/2023 8:01 AM T [facility] Blood 09/16/2023 8:00 AM CDT 09/16/2023 8:01 AM CDT Jg Munguia MD LAB_1 Performing Organization Address [facility]/ZIP Co de Phone Number [address] * (ABNORMAL) Complete Blood Count-No Diff (09/16/2023 6:29 AM CDT) WBC 14.8(H) 3.5 - 10.5 x10(9)/L 09/16/2023 7:31 AM CDT [facility] RBC 4.02 3.90 - 5.03 x10(12)/L 09/16/2023 7:31 AM [facility] Hemoglobin 11.3(L) 12.0 - 15.5 g/dL 09/16/2023 7:31 AM [facility] HCT 35.3 34.9 - 44.5 % 09/16/2023 7:31 AM [facility] MCV 87.8 80.0 - 100.0 fL 09/16/2023 7:31 AM [facility] MCH 28.1 27.6 - 33.3 pg 09/16/2023 7:31 AM [facility] MCHC 32.0 31.5 - 35.2 g/dL 09/16/2023 7:31 AM [facility] RDW 13.7 11.9 - 15.5 % 09/16/2023 7:31 AM [facility] Platelets 204 150 - 450 x10(9)/L 09/16/2023 7:31 AM [facility] Automated NRBC 0 <=0 /100 WBC 09/16/2023 7:31 AM [facility] Blood Venipuncture / Unknown 09/16/2023 6:29 AM CDT 09/16/2023 7:20 AM CDT Sherman Trivedi MD LAB_1 Performing Organization Address City/State/[facility] Co de Phone Number [address] * (ABNORMAL) Basic Metabolic Panel (09/16/2023 6:29 AM CDT) Sodium 140 136 - 145 mmol/L 09/16/2023 7:54 AM [facility] Potassium 4.0 3.5 - 5.1 mmol/L 09/16/2023 7:54 AM [facility] Chloride 108 98 - 109 mmol/L 09/16/2023 7:54 AM [facility] CO2 24 20 - 29 mmol/L 09/16/2023 7:54 AM [facility] Anion Gap 8 6 - 16 mmol/L 09/16/2023 7:54 AM [facility] Calcium 9.4 8.4 - 10.4 mg/dL 09/16/2023 7:54 AM [facility] BUN 14 7 - 26 mg/dL 09/16/2023 7:54 AM [facility] Creatinine 0.55 0.55 - 1.02 mg/dL 09/16/2023 7:54 AM [facility] Glucose 133(H) 70 - 100 mg/dL 09/16/2023 7:54 AM [facility] Comment:The given reference range is for the fasting state. Non-fasting reference range for glucose is 70 - 180 mg/dL. GFR, Estimated >60 >60 mL/min/1.7 3m2 09/16/2023 7:54 AM [facility] Blood Venipuncture / Unknown 09/16/2023 6:29 AM CDT 09/16/2023 7:20 AM CDT Sherman Trivedi MD LAB_1 Performing Organization Address [facility] Co de Phone Number [address] * Phosphorus (09/16/2023 6:29 AM CDT) Phosphorus 2.4 2.3 - 4.7 mg/dL 09/16/2023 7:54 AM [facility] Blood Venipuncture / Unknown 09/16/2023 6:29 AM CDT 09/16/2023 7:20 AM CDT Sherman Trivedi MD LAB_1 Performing Organization Address [facility] [place] [address], [facility] * Magnesium (09/16/2023 6:29 AM CDT) Magnesium 1.9 1.6 - 2.6 mg/dL 09/16/2023 7:54 AM [facility] Blood Venipuncture / Unknown 09/16/2023 6:29 AM CDT 09/16/2023 7:20 AM CDT Sherman Trivedi MD LAB_1 Performing Organization Address [facility] [place] [address], [facility] * Glucose, Whole Blood POCT (09/15/2023 9:08 PM CDT) Glucose, Whole Blood 163 70 - 180 mg/dL 09/15/2023 9:09 PM CDT [facility] Performing Location RCLab S104 09/15/2023 9:09 PM CDT [facility] Blood 09/15/2023 9:08 PM CDT 09/15/2023 9:09 PM CDT Jg Munguia MD LAB_[address] * Glucose, Whole Blood POCT (09/15/2023 4:59 PM CDT) Glucose, Whole Blood 129 70 - 180 mg/dL 09/15/2023 5:00 PM CDT [facility] Location Lab S104 09/15/2023 5:00 PM CDT [facility] Blood 09/15/2023 4:59 PM CDT 09/15/2023 5:00 PM CDT Jg Munguia MD LAB_1 Performing Organization Address City/[facility]/ZIP Co de Phone Number [address] * Glucose, Whole Blood POCT (09/15/2023 12:47 PM CDT) Glucose, Whole Blood 127 70 - 180 mg/dL 09/15/2023 12:55 PM CDT [facility] Performing Location RCLAB W3 09/15/2023 12:55 PM CDT [facility] Blood 09/15/2023 12:4 7 PM CDT 09/15/2023 12:55 PM CDT Jg Munguia MD LAB_1 [address] * Glucose, Whole Blood POCT (09/15/2023 8:29 AM CDT) Glucose, Whole Blood 140 70 - 180 mg/dL 09/15/2023 8:34 AM [facility] Performing Location RCLAB W3 09/15/2023 8:34 AM [facility] Blood 09/15/2023 8:29 AM CDT 09/15/2023 8:34 AM CDT Jg Munguia MD LAB_1 Performing Organization Address [facility] Co de Phone Number [address] [address], [facility] * (ABNORMAL) Complete Blood Count-No Diff (09/15/2023 3:43 AM CDT) WBC 16.4(H) 3.5 - 10.5 x10(9)/L 09/15/2023 3:54 AM [facility] RBC 4.16 3.90 - 5.03 x10(12)/L 09/15/2023 3:54 AM [facility] Hemoglobin 11.8(L) 12.0 - 15.5 g/dL 09/15/2023 3:54 AM [facility] HCT 36.2 34.9 - 44.5 % 09/15/2023 3:54 AM [facility] MCV 87.0 80.0 - 100.0 fL 09/15/2023 3:54 AM [facility] MCH 28.4 27.6 - 33.3 pg 09/15/2023 3:54 AM [facility] MCHC 32.6 31.5 - 35.2 g/dL 09/15/2023 3:54 AM [facility] RDW 13.7 11.9 - 15.5 % 09/15/2023 3:54 AM [facility] Platelets 229 150 - 450 x10(9)/L 09/15/2023 3:54 AM [facility] Automated NRBC 0 <=0 /100 WBC 09/15/2023 3:54 AM [facility] Blood Venipuncture / Unknown 09/15/2023 3:43 AM CDT 09/15/2023 3:48 AM CDT Sherman Trivedi MD LAB_1 [address] * (ABNORMAL) Basic Metabolic Panel (09/15/2023 3:43 AM CDT) Sodium 138 136 - 145 mmol/L 09/15/2023 4:20 AM [facility] Potassium 3.9 3.5 - 5.1 mmol/L 09/15/2023 4:20 AM [facility] Chloride 109 98 - 109 mmol/L 09/15/2023 4:20 AM [facility] CO2 21 20 - 29 mmol/L 09/15/2023 4:20 AM [facility] Anion Gap 8 6 - 16 mmol/L 09/15/2023 4:20 AM [facility] Calcium 9.2 8.4 - 10.4 mg/dL 09/15/2023 4:20 AM [facility] BUN 10 7 - 26 mg/dL 09/15/2023 4:20 AM [facility] Creatinine 0.51(L) 0.55 - 1.02 mg/dL 09/15/2023 4:20 AM [facility] Glucose 136(H) 70 - 100 mg/dL 09/15/2023 4:20 AM [facility] Comment:The given reference range is for the fasting state. Non-fasting reference range for glucose is 70 - 180 mg/dL. GFR, Estimated >60 >60 mL/min/1.7 3m2 09/15/2023 4:20 AM [facility] Blood Venipuncture / Unknown 09/15/2023 3:43 AM CDT 09/15/2023 3:48 AM CDT Sherman Trivedi MD LAB_[address] [place] [address], [facility] * Phosphorus (09/15/2023 3:43 AM CDT) Phosphorus 3.9 2.3 - 4.7 mg/dL 09/15/2023 4:20 AM [facility] Blood Venipuncture / Unknown 09/15/2023 3:43 AM CDT 09/15/2023 3:48 AM CDT Sherman Trivedi MD LAB_1 Performing Organization Address City/[facility]/ZIP Co de Phone Number [address] * Magnesium (09/15/2023 3:43 AM CDT) Magnesium 2.0 1.6 - 2.6 mg/dL 09/15/2023 4:20 AM CDT [facility] Blood Venipuncture / Unknown 09/15/2023 3:43 AM CDT 09/15/2023 3:48 AM CDT Sherman Trivedi MD LAB_1 Performing Organization Address [facility] Co de Phone Number [address] * MR Brain W/WO IV Cont [...] 180 mg/dL 09/15/2023 12:39 AM CDT [facility] POCT Comment 1 MD/RN Notified 09/15/2023 12:39 AM CDT [facility] Performing Location RCLAB W3 09/15/2023 12:39 AM CDT [facility] Blood 09/15/2023 12:3 5 AM CDT 09/15/2023 12:39 AM CDT Jg Munguia MD LAB_[address] * Glucose, Whole Blood POCT (09/14/2023 7:55 PM CDT) Glucose, Whole Blood 127 70 - 180 mg/dL 09/14/2023 7:57 PM CDT [facility] Performing Location RCLAB W3 09/14/2023 7:57 PM CDT [facility] Blood 09/14/2023 7:55 PM CDT 09/14/2023 7:57 PM CDT Jg Munguia MD LAB_1 Performing Organization Address [facility] Co de Phone [address] * Phosphorus (09/14/2023 5:57 PM CDT) Phosphorus 3.8 2.3 - 4.7 mg/dL 09/14/2023 7:19 PM CDT [facility] Blood Arterial Line / Unknown 09/14/2023 5:57 PM CDT 09/14/2023 6:03 PM CDT Jg Munguia MD LAB_1 Performing Organization Address [facility] Co de Phone Number [address] * Magnesium (09/14/2023 5:57 PM CDT) Magnesium 1.6 1.6 - 2.6 mg/dL 09/14/2023 7:19 PM CDT [facility] Blood Arterial Line / Unknown 09/14/2023 5:57 PM CDT 09/14/2023 6:03 PM CDT Jg Munguia MD LAB_1 Performing Organization Address [facility] Co de Phone Number [address] * Potassium (09/14/2023 5:57 PM CDT) Potassium 4.1 3.5 - 5.1 mmol/L 09/14/2023 7:20 PM CDT [facility] Blood Arterial Line / Unknown 09/14/2023 5:57 PM CDT 09/14/2023 6:03 PM CDT Jg Munguia MD LAB_1 Performing Organization Address [facility]/ZIP Co de Phone Number [address] * Glucose, Whole Blood POCT (09/14/2023 5:36 PM CDT) Glucose, Whole Blood 153 70 - 180 mg/dL 09/14/2023 5:38 PM CDT [facility] Performing Location RCLAB W3 09/14/2023 5:38 PM CDT [facility] Blood 09/14/2023 5:36 PM CDT 09/14/2023 5:38 PM CDT Jg Munguia MD LAB_1 Performing Organization Address City/[facility]/ZIP Co de Phone Number [address] * (ABNORMAL) Basic Metabolic Panel (09/14/2023 1:50 PM CDT) Sodium 139 136 - 145 mmol/L 09/14/2023 2:26 PM [facility] Potassium 3.9 3.5 - 5.1 mmol/L 09/14/2023 2:26 PM [facility] Chloride 108 98 - 109 mmol/L 09/14/2023 2:26 PM T [facility] CO2 22 20 - 29 mmol/L 09/14/2023 2:26 PM [facility] Anion Gap 9 6 - 16 mmol/L 09/14/2023 2:26 PM T [facility] Calcium 9.4 8.4 - 10.4 mg/dL 09/14/2023 2:26 PM [facility] BUN 10 7 - 26 mg/dL 09/14/2023 2:26 PM T [facility] Creatinine 0.68 0.55 - 1.02 mg/dL 09/14/2023 2:26 PM T [facility] Glucose 158(H) 70 - 100 mg/dL 09/14/2023 2:26 PM [facility] Comment:The given reference range is for the fasting state. Non-fasting reference range for glucose is 70 - 180 mg/dL. GFR, Estimated >60 >60 mL/min/1.7 3m2 09/14/2023 2:26 PM [facility] Blood Venipuncture / Unknown 09/14/2023 1:50 PM CDT 09/14/2023 1:53 PM CDT Maggie Ding PA-C LAB_1 [place] [address], [facility] * Complete Blood Count-No Diff (09/14/2023 1:50 PM CDT) WBC 9.0 3.5 - 10.5 x10(9)/L 09/14/2023 2:12 PM [facility] RBC 4.94 3.90 - 5.03 x10(12)/L 09/14/2023 2:12 PM [facility] Hemoglobin 14.0 12.0 - 15.5 g/dL 09/14/2023 2:12 PM [facility] HCT 43.5 34.9 - 44.5 % 09/14/2023 2:12 PM [facility] MCV 88.1 80.0 - 100.0 fL 09/14/2023 2:12 PM [facility] MCH 28.3 27.6 - 33.3 pg 09/14/2023 2:12 PM [facility] MCHC 32.2 31.5 - 35.2 g/dL 09/14/2023 2:12 PM [facility] RDW 13.5 11.9 - 15.5 % 09/14/2023 2:12 PM [facility] Platelets 241 150 - 450 x10(9)/L 09/14/2023 2:12 PM [facility] Automated NRBC 0 <=0 /100 WBC 09/14/2023 2:12 PM [facility] Blood Venipuncture / Unknown 09/14/2023 1:50 PM CDT 09/14/2023 1:53 PM CDT Maggie Ding PA-C LAB_1 Performing Organization Address [facility]/[address] * Glucose, Whole Blood POCT (09/14/2023 1:00 PM CDT) Glucose, Whole Blood 168 70 - 180 mg/dL 09/14/2023 1:01 PM CDT [facility] Performing Location [facility] PACU 09/14/2023 1:01 PM CDT [facility] Blood 09/14/2023 1:00 PM CDT 09/14/2023 1:01 PM CDT Jg Munguia MD LAB_1 Performing Organization Address [address] * Surgical Path (09/14/2023 11:30 AM CDT) Case Report Surgical Pathology ?Case: [id number] ? Authorizing Provider: ??Jg Munguia MD ?Collected: ? 09/14/2023 1130 ? Ordering Location: ? [facility] Operating Room ?Received: ?09/14/2023 1136 ? Pathologist: ? Bella Medina MD ? Specimen: ?Brain, Anterior Skull Based Meningioma ? 09/15/2023 2:51 PM [facility] FINAL DIAGNOSIS A. Brain, anterior skull based tumor, excision: Meningioma, WHO grade 1 Comment: The tumor cells are strongly positive for PA immunohistochemical stain and are negative for ER. 09/15/2023 2:51 PM [facility] Clinical Information Meningioma (HRC) 09/15/2023 2:51 PM [facility] Microscopic Description Microscopic examination is performed. 09/15/2023 2:51 PM [facility] Special Stains The stain controls have been reviewed and stain appropriately. 09/15/2023 2:51 PM [facility] Gross Description A: The specimen is received in formalin and labeled with the patient's name and Brain, Anterior Skull Based Meningioma. The specimen consists of 3.8 x 2.1 x 0.7 cm aggregate of pink-red, irregular soft tissue fragments with cautery. The specimen was excised at 11:30 AM, 09/14/2023 and placed into formalin at 12:01 PM, 09/14/2023. Head Swamper sections are submitted in 7 cassettes. 09/15/2023 2:51 PM [facility] Embedded Images 09/15/2023 2:51 PM [facility] Tissue SPECIMEN FROM BRAIN / Unknown 09/14/2023 11:30 AM CDT 09/14/2023 11:36 AM CDT Jg Munguia MD LAB PATHOLOGY [address] [address], [facility] * Glucose, Whole Blood POCT (09/14/2023 9:45 AM CDT) Glucose, Whole Blood 144 70 - 180 mg/dL 09/14/2023 9:47 AM T [facility] Performing Location [facility] OR 09/14/2023 9:47 AM CDT [facility] Blood 09/14/2023 9:45 AM CDT 09/14/2023 9:47 AM CDT Jg Munguia MD LAB_1 Performing Organization Address [facility] de Phone Number [address] * Glucose, Whole Blood POCT (09/14/2023 5:59 AM CDT) Glucose, Whole Blood 110 70 - 180 mg/dL 09/14/2023 6:01 AM CDT [facility] Performing Location [facility] PSCU 09/14/2023 6:01 AM CDT [facility] Blood 09/14/2023 5:59 AM CDT 09/14/2023 6:01 AM CDT Jg Munguia MD LAB_1 Performing Organization Address [facility] Co de Phone Number [address] * Extra [place]xton/Bank Tube (09/14/2023 5:56 AM CDT) Extra [place]/Bank Tube Drawn Received in BB 09/14/2023 8:08 AM CDT [facility] Blood Venipuncture / Unknown 09/14/2023 5:56 AM CDT 09/14/2023 8:07 AM CDT Bella Medina MD LAB_1 Performing Organization Address [facility] Co de Phone Number [facility] [address] [place] [address] * Antibody Screen (09/14/2023 5:52 AM CDT) Antibody Screen Interpretation Negative 09/14/2023 7:00 AM CDT [facility] Blood Venipuncture / Unknown 09/14/2023 5:52 AM CDT 09/14/2023 6:09 AM CDT Mike Davis PA-C LAB_1 Performing Organization Address City/[facility]/ZIP Co de Phone Number [facility] [address] * Blood Type (09/14/2023 5:52 AM CDT) ABO O 09/14/2023 7:00 AM CDT [facility] RH Positive 09/14/2023 7:00 AM CDT [facility] Blood Venipuncture / Unknown 09/14/2023 5:52 AM CDT 09/14/2023 6:09 AM CDT Mike Davis PA-C LAB_1 Performing Organization Address [facility] Co de Phone Number [facility] [address] * INR/Protime (09/14/2023 5:52 AM CDT) Protime 13.0 11.8 - 14.6 Seconds 09/14/2023 6:28 AM CDT [facility] INR 1.0 0.9 - 1.1 09/14/2023 6:28 AM CDT [facility] Blood Venipuncture / Unknown 09/14/2023 5:52 AM CDT 09/14/2023 6:10 AM CDT Narrative [facility] - 09/14/2023 6:28 AM CDT If you take an anticoagulant medicine called warfarin, your doctor or clinician may establish a normal range for you that is different from the baseline range shown. Mike Davis PA-C LAB_1 Performing Organization Address [facility]/ZIP Co de Phone Number [address] * (ABNORMAL) Hemogram with Platelets (09/14/2023 5:52 AM CDT) WBC 6.4 3.5 - 10.5 x10(9)/L 09/14/2023 6:21 AM CDT [facility] RBC 4.78 3.90 - 5.03 x10(12)/L 09/14/2023 6:21 AM [facility] Hemoglobin 13.2 12.0 - 15.5 g/dL 09/14/2023 6:21 AM [facility] HCT 42.2 34.9 - 44.5 % 09/14/2023 6:21 AM [facility] MCV 88.3 80.0 - 100.0 fL 09/14/2023 6:21 AM [facility] MCH 27.6 27.6 - 33.3 pg 09/14/2023 6:21 AM [facility] MCHC 31.3(L) 31.5 - 35.2 g/dL 09/14/2023 6:21 AM [facility] RDW 13.4 11.9 - 15.5 % 09/14/2023 6:21 AM [facility] Platelets 243 150 - 450 x10(9)/L 09/14/2023 6:21 AM [facility] Automated NRBC 0 <=0 /100 WBC 09/14/2023 6:21 AM [facility] Blood Venipuncture / Unknown 09/14/2023 5:52 AM CDT 09/14/2023 6:10 AM CDT Mike Davis PA-C LAB_1 Performing Organization Address City/State/[facility] Co de Phone Number [address] * (ABNORMAL) Basic Metabolic Panel (09/14/2023 5:52 AM CDT) Sodium 140 136 - 145 mmol/L 09/14/2023 6:39 AM [facility] Potassium 4.2 3.5 - 5.1 mmol/L 09/14/2023 6:39 AM [facility] Comment:Specimen slightly he molyzed. Hemolysis may affect result. Chloride 109 98 - 109 mmol/L 09/14/2023 6:39 AM [facility] CO2 22 20 - 29 mmol/L 09/14/2023 6:39 AM [facility] Anion Gap 9 6 - 16 mmol/L 09/14/2023 6:39 AM [facility] Calcium 10.2 8.4 - 10.4 mg/dL 09/14/2023 6:39 AM CDT [facility] BUN 12 7 - 26 mg/dL 09/14/2023 6:39 AM [facility] Creatinine 0.64 0.55 - 1.02 mg/dL 09/14/2023 6:39 AM [facility] Glucose 104(H) 70 - 100 mg/dL 09/14/2023 6:39 AM [facility] Comment:The given reference range is for the fasting state. Non-fasting reference range for glucose is 70 - 180 mg/dL. GFR, Estimated >60 >60 mL/min/1.7 3m2 09/14/2023 6:39 AM [facility] Blood Venipuncture / Unknown 09/14/2023 5:52 AM CDT 09/14/2023 6:10 AM CDT Mike Davis PA-C LAB_1 Performing Organization Address City/State/[facility] [place] [address], [facility] documented in this encounter Visit Diagnoses Diagnosis Meningioma (HRC)- Primary Benign neoplasm of cerebral meninges Meningioma (HRC) Benign neoplasm of cerebral meninges Bradycardia, sinus Other specified cardiac dysrhythmias S/P craniotomy Other postprocedural status Meningioma (HRC) 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 Practitioner Notified Note Name of [...] per MAR with stated relief. 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 Lives with adult children who are [...] and can make needs known. Care Hours [id number] * Plan of Care - Sonya Espino RN - 09/20/2023 2:55 PM CDT [facility] Care Management Follow Up Note Plan: Care Team Actions Needed: MD medical clearance, discharge orders, PT/OT consult Expected discharge date: 09/20/2023 Anticipated Discharge Plan: Likely home pending PT/OT recs Care Coordination Updates: Current Patient Assessment: appropriate, pleasant Barriers/Vulnerabilities: patient continues to require acute medical care Anticipated Transportation Mode: Private Vehicle Contacts: Emergency Contacts Handle Rounder Operator (Rel.) Home Phone Work Phone Mobile Phone WERO BRAY (Son) [phone] -- -- SARY ROSAS (Daughter) [phone] -- -- Stefany Leyva [phone] -- -- Functional Level Prior: Functional Screen (Baseline Prior to Admission) Ambulation: Independent Transferring: Independent Toileting: Independent Bathing: Independent Dressing: Independent Eating: Independent Communication: Understands/communicates without difficulty Swallowing: Swallows foods/liquids without difficulty Meal Preparation: Independent Laundry: Independent Finances: Independent Shopping: Independent Transportation: Drives Independently 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 Lives with adult children who are able to assist Primary Care: Primary Care Primary Care Clinic: [facility] Primary Care Physician: Svitlana Olmos MD [...] RN - 09/20/2023 5:24 AM CDT [facility] Plan of Care Note Assessment: [...] and can make needs known. Care Hours [phone] * Plan of Care - Alysa Hardy RN - 09/19/2023 7:02 AM CDT A/o x 4. States incisional pain 5/10, [id number] dosing of prn's utilized per pt request. Swelling at incision. States improved numbness in R hand. Sinus ck, HR 40's-50's. Ambulating to bathroom IND, steady gait. Continent of bladder. Makes needs known. * Plan of Care - Rachel Chilel RN - 09/18/2023 8:04 PM CDT Pt A&Ox4. PERRL. HERNANDEZ. C/o incisional pain tolerable with scheduled and prn medications. 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 Up in room and hallway independently. Tolerating [...] with SBA. Incision CDI. 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 Lives with adult children who are [...] sessions. * Plan of Care - Sherman Jean RN - 09/17/2023 9:00 AM CDT [facility] Care Management Follow Up Note Plan: Care Team Actions Needed: MD medical clearance, discharge orders, PT/OT consult Expected discharge date: 09/19/2023 Anticipated Discharge Plan: Likely home pending PT/OT recs Admission Info: Reason for Consult: discharge planning Chart Reviewed: discussed with patient, discussed with interdisciplinary team Contacts: Emergency Contacts Handle Rounder Operator (Rel.) Home Phone Work Phone Mobile Phone WERO BRAY (Son) [phone] -- -- SARY ROSAS (Daughter) [phone] -- -- GordonStefany [phone] -- -- Cognitive capacity prior to admission: oriented Independent with ADLs (Prior to Admission)? 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 Lives with adult children who are [...] do initially) Primary Care: Primary Care Clinic: [facility] Primary Care Physician: Svitlana Olmos MD Functional Level Prior: Functional Screen (Baseline Prior to Admission) Ambulation: Independent Transferring: Independent Toileting: Independent Bathing: Independent Dressing: Independent Eating: Independent Communication: Understands/communicates without difficulty Swallowing: Swallows foods/liquids without difficulty Meal Preparation: Independent Laundry: Independent Finances: Independent Shopping: Independent Transportation: Drives Independently 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 Lives with adult children who are able to assist Insurance: [employer] Readmission Assessment: Initial assessment notes: Reviewed patient's chart and discussed plan of care with team during care connection. Met with patient, introduced myself and my role as ed case manager/licensed master social worker. Verified demographics. Patient currently lives w/ 3 adult children and 2 grandchildren in a house in [place]. 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 She has been on short-term disability since May and is applying for long-term disability. No reported DME at home. Has support from 7 adult children (all of which live nearby), grandchildren. Patient drives to get to their medical appointments. PCP is Svitlana Olmos MD at [facility]. Trixie Mckeon, TRAVEL REGISTERED NURSE ONCOLOGY, ARCHIVES DIRECTOR Admission Date/Time: 09/14/2023 4:48 AM Attending MD: Jg Munguia MD Data Ruthann Rosas was referred to this manager leadership development for discharge planning and care coordination. Ruthann Rosas was admitted to [facility] for [facility] (C) [D32.9]. Insurance: Payor: [employer] / Plan: [...] transport at time of discharge: Family Provider, energy rater, bed side RN, and nurse management updated. CM/SW Team will continue to follow for coordination of care, discharge planning and offer support as needed. Sherman Jean RIVET STICKER, Portfolio Assistant Pager [phone] * Plan of Care - Daksha Ariza RN - 09/17/2023 6:59 AM CDT A&Ox4. VSS w/ HR ck throughout the night. C/o of pain to head/incision, managed w/ PRN pain meds. Denies SOB, N/T, N/V. Incision C/D/I and LATIN TEACHER. Swelling still present to forehead/eyes. Up SBA [...] eyelids. 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 Lives with adult children who are [...] Espino RN - 09/16/2023 1:17 PM CDT [facility] Care Management Follow Up Note Plan: Care Team Actions Needed: medical clearance, discharge orders, PT/OT consult Expected discharge date: 09/19/2023 Anticipated Discharge Plan: Likely home pending PT/OT recs Care Coordination Updates: Current Patient Assessment: appropriate, pleasant Barriers/Vulnerabilities: patient continues to require acute medical care Anticipated Transportation Mode: Private Vehicle Contacts: Emergency Contacts Handle Rounder Operator (Rel.) Home Phone Work Phone Mobile Phone WERO BRAY (Son) [phone] -- -- SARY ROSAS (Daughter) [phone] -- -- Stefany Leyva [phone] -- -- Functional Level Prior: Functional Screen (Baseline Prior to Admission) Ambulation: Independent Transferring: Independent Toileting: Independent Bathing: Independent Dressing: Independent Eating: Independent Communication: Understands/communicates without difficulty Swallowing: Swallows foods/liquids without difficulty Meal Preparation: Independent Laundry: Independent Finances: Independent Shopping: Independent Transportation: Drives Independently 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 Lives with adult children who are able to assist Primary Care: Primary Care Primary Care Clinic: [facility] Primary Care Physician: Svitlana Olmos [...] RN - 09/15/2023 6:45 PM CDT [facility] Plan of Care Note Assessment: [...] RN - 09/15/2023 5:00 PM CDT [facility] Nursing Transfer Note Admission Date/Time: 09/14/2023 4:48 AM Time of transfer: 4:30 PM Transfer from room #: 3620 Accepting nursing unit: [facility] Valuables/belongings sent with patient?: Yes Dentures: [...] breakfast and bites of lunch, poor appetite. BAG TESTER BM, BS active. Voiding via commode, SBA/x1 - occasionally dizzy when ambulating. * Initial Assessments - Linda, Trixie Prieto, TRAVEL REGISTERED NURSE ONCOLOGY, ARCHIVES DIRECTOR - 09/15/2023 3:18 PM CDT [facility] Care Management Initial Assessment Plan: Care Team Actions Needed: MD medical clearance, discharge orders, PT/OT consult Expected discharge date: 09/19/2023 Anticipated Discharge Plan: Likely home pending PT/OT recs Admission Info: Reason for Consult: discharge planning Chart Reviewed: discussed with patient, discussed with interdisciplinary team Contacts: Emergency Contacts Handle Rounder Operator (Rel.) Home Phone Work Phone Mobile Phone WERO BRAY (Son) [phone] -- -- SARY ORSAS (Daughter) [phone] -- -- Stefany Leyva [phone] -- -- Cognitive capacity prior to admission: oriented Independent with ADLs (Prior to Admission)? 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 Lives with adult children who are [...] Private Vehicle Primary Care: Primary Care Clinic: [facility] Primary Care Physician: Svitlana Olmos MD Functional Level Prior: Functional Screen (Baseline Prior to Admission) Ambulation: Independent Transferring: Independent Toileting: Independent Bathing: Independent Dressing: Independent Eating: Independent Communication: Understands/communicates without difficulty Swallowing: Swallows foods/liquids without difficulty Meal Preparation: Independent Laundry: Independent Finances: Independent Shopping: Independent Transportation: Drives Independently 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 Lives with adult children who are able to assist Insurance: [employer] Readmission Assessment: Additional Comments: Reviewed patient's chart and discussed plan of care with team during care connection. Met with patient, introduced myself and my role as ed case manager/licensed master social worker. Verified demographics. Patient currently lives w/ 3 adult children and 2 grandchildren in a house in [place]. 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 She has been on short-term disability since May and is applying for long-term disability. No reported DME at home. Has support from 7 adult children (all of which live nearby), grandchildren. Patient drives to get to their medical appointments. PCP is Svitlana Olmos MD at [facility]. Admitted for tumor resection. Pt went [...] offer support as needed. 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 Lives with adult children who are [...] RN - 09/15/2023 5:48 AM CDT [facility] Plan of Care Note Assumed cares [id number] GCS 15, PERRL, RASS 0/-1. A&Ox4. Strong x4. Baseline weakness to RUE. PRN Oxy and Dilaudid given for MURILLO. Telemetry: SR w/ 1st AVB. Some hypotension, see below. Afebrile. LSC on 2LNC. Tolerating clears. LBM BAG TESTER. Strong cath x1, later able to spontaneously void. T&R Q2hrs. MRI completed. [facility]. Practitioner Notified Note Name of Practitioner notified: CANDI He Time of Practitioner notification: 10:21 PM Reason: No labs ordered for AM. Also, BP decreasing. 80's/60-70's. MAP's holding around 65-70. No neuro changes, asymptomatic. Response: 500ml bolus and labs ordered. [facility]. Practitioner Notified Note Name of Practitioner notified: Dr. Trivedi [facility] Time of Practitioner notification: 00:58 Reason: s/p [...] 8:05 AM CDT 500 mg lidocaine-epinephrine 1 %-[id number] injection ONCE PRN, Starting on Tue09/14/23 at [...] Kathy Su RN)2325 (Noted - Provider: Laurence Phlean RN) 0715 (Noted - Provider: Hina Flood [...] % injection 30 mL 30 mL, Intradermal, AIRCRAFT TIME CLERK, On Tue09/14/23 at 1730, For 1 dose, [...] Practitioner. documented in this encounter Care Teams Mold Bunch Trimmer Relationship Specialty Start Date End Date Svitlana Olmos MD [address] [place] [address] PCP - General 05/30/10 documented as of this encounter
--- OUTSIDE RECORDS SUMMARY | 2023-10-07 02:13 | XMS_ITS | Encounter Summary ---
Author Organization [facility] Address [address] [place] [address] Care Team Providers Care Weaver Hand Name Role Phone Svitlana Olmos MD Primary Care Provider [phone] Encounter Details Date Type Department Care Team (Late st Contact Info) Description 08/31/2023 3:30 PM CDT Lab Visit [facility] [address] [place] [address] [place] [phone] Preoperative examination Social History Tobacco Use Types [...] Department Care Team (Late Contact Info) Description 10/12/2023 9:00 AM CDT Appointment [facility] [address] [place] [address] Svitlana Olmos MD [address] [place] [address] JANET LYONS [id number] Hospital Discharge Follow-up 10/20/2023 10:30 AM CDT Appointment [facility] Neurosurgery/Ortho Spine [address] [place] [address] 12/06/2023 10:20 AM CDT Appointment [facility] Neurosurgery/Ortho Spine [address] [place] [address] Jg Munguia MD [address] [place], [place] [phone] 01/03/2024 11:20 AM LICENSED SALES PRODUCER Appointment Critical access hospital [facility] [address] [place], [place] [phone] [facility] [address] [place], [place] [phone] documented as of this encounter Procedures Procedure [...] Svitlana Olmos MD LAB_1 [facility] ([facility]) [address] [facility] [place] [address], [facility] documented in this encounter Visit Diagnoses Diagnosis Preoperative examination Preoperative examination, unspecified Recurrent cold sores Herpes simplex without mention of complication documented in this encounter Care Teams Weaver Hand Relationship Specialty Start Date End Date Svitlana Olmos MD [address] [place] [address] PCP - General 05/30/10 documented as of this encounter
--- OUTSIDE RECORDS SUMMARY | 2023-10-07 02:13 | XMS_ITS | Encounter Summary ---
Author Organization [facility] Address [address] [place] [address] Care Team Providers Care Presentation Designer Name Role Phone Svitlana Olmos MD Primary Care Provider [phone] Reason for Visit * Procedure/Equipment (Routine) - Incomplete Specialty Diagnoses / Procedures Referred By Contac t Referred To Contact Diagnoses Meningioma (HRC) Procedures MR Brain W/WO IV Cont Map Jg Lawler MD [address] [place] [address] Referral ID Status Reason Start Date Expiration Date V isits Requested Visits Authorized [id number] Incomplete 08/12/2023 11/10/2024 1 1 Encounter Details Date Type Department Care Team (Latest Contact Info) Description 09/13/2023 10:00 AM CDT Ancillary Procedure [facility] [address] [place] [address] Jg Munguia MD [address] [place], [place] [phone] Meningioma (HRC) Social History Tobacco Use Types Packs/Day Years Used Date Smoking Tobacco: Every Day Cigarettes 1 40.2 Started: 02/28/1979; Last attempted to quit: 05/30/2019 Smokeless Tobacco: Never Comments:Smoking History Pac ks/day: quit 06/13/2023 Alcohol Use Standard Drinks/Week Comments No 0 (1 standard drink = 0.6 oz pur e alcohol) [facility] Utilities Answer Date Recorded In the [...] slept in a jail (including now)? No 09/14/2023 Sex and Gender Information Value Date Recorded Sex Assigned at Not on file Gender Identity Not on file Sexual Orientation Not on file documented as of this encounter Plan of Treatment Upcoming Encounters Date Type Department Care Team (Late st Contact Info) Description 10/12/2023 9:00 AM CDT Appointment [facility] [address] [place] [address] Svitlana Olmos MD [address] [place] [address] Hospital Discharge Follow-up 10/20/2023 10:30 AM CDT Appointment [facility] Neurosurgery/Ortho Spine [address] [place] [address] 12/06/2023 10:20 AM CDT Appointment [facility] Neurosurgery/Ortho Spine [address] [place] [address] Jg Munguia MD 295 [place] [address] 01/03/2024 11:20 AM SALES EXHIBITOR Appointment [facility] [address] [place] [address] [facility] [address] [place], [place] [phone] documented as of this encounter Procedures Procedure [...] AVB Interface Provider EKG Performing Organization Address [facility] de Phone Number MUSE MARTINP [address] [place] [address] * INPATIENT TELEMETRY MONITORING (09/14/2023 7:55 PM CDT) Pathologist [facility] TELE P-R INTERVAL 0.22 [facility] TELE QRS DURATION 0.08 [facility] TELE R-R INTERVAL 0.87 [facility] TELE QT 0.45 [facility] TELE QTC 0.48 [facility] TELE INTERPRETATION Sinus Rhythm w/1st AVB (HM) [facility] 09/14/2023 7:55 PM CDT Narrative [facility] - 09/14/2023 8:00 PM CDT Sinus Rhythm ??w/1st AVB () Interface Provider EKG Performing Organization Address [facility] de Phone Number MUSE G[facility] [address] [place] [address] * MR Brain W/WO IV Cont Map Stealth (09/13/2023 10:53 AM CDT) Anatomical Region Laterality Modality Head Magnetic Resonan ce 09/13/2023 10:5 3 AM CDT Narrative 09/14/2023 7:45 AM CDT EXAM: MR BRAIN WITHOUT AND WITH IV CONTRAST MAP STEALTH LOCATION: [facility] DATE: 09/13/2023 INDICATION: Plan for [...] AND WITH IV CONTRAST MAP STEALTH LOCATION: [facility] DATE: 09/13/2023 INDICATION: Plan for eyebrow [...] mention of complication documented in this encounter Administered Medications Inactive Administered Medications - up to 3 most recent administrations Medication Order MAR Action Action Date Dose Rate Site gadobutrol (GADAVIST) 1 MMOL/ML injection 10 mL 10 mL, Intravenous, ONCE (NON-SCHEDULED), Starting on Tue09/13/23 at 1053, Until Tue09/13/23 at 1053, For 1 dose Given 09/13/2023 10:53 AM CDT 10 mL documented in this encounter Care Teams Presentation Designer Relationship Specialty Start Date End Date Svitlana Olmos MD [address] [place] [address] PCP - General 05/30/10 documented as of this encounter
--- OUTSIDE RECORDS SUMMARY | 2023-10-07 02:13 | XMS_ITS | Encounter Summary ---
Author Organization [facility] Address [address] [place] [address] Care Team Providers Care Brick Unloader Tender Name Role Phone Svitlana Olmos MD Primary Care Provider [phone] Reason for Visit * Reason Comments Forms Encounter Details Date Type Department Care Team (Late st Contact Info) Description 09/06/2023 Telephone [facility] 8[address] [place], [place] [address] Allison Harkins MD [address] [place], [place] 9[address] Forms Social History Tobacco Use Types Packs/Day [...] CDT Appointment [facility] [place] [address] Svitlana Olmos MD [address] [facility] [address] Hospital Discharge Follow-up 10/20/2023 10:30 AM CDT Appointment [facility] Neurosurgery/Ortho Spine [address] [place] [address] 12/06/2023 10:20 AM CDT Appointment [facility] Neurosurgery/Ortho Spine [address] [place] [address] Jg Munguia MD [address] [place] [address] 01/03/2024 11:20 AM HEAD REFRIGERATION ENGINEER Appointment [facility] [place] [address] [place] [address] [facility] [address] [place] [address] documented as of this encounter Visit Diagnoses Not on filedocumented in this encounter Care Teams Brick Unloader Tender Relationship Specialty Start Date End Date Svitlana Olmos MD [address] [place] [address] PCP - General 05/30/10 documented as of this encounter
--- OUTSIDE RECORDS SUMMARY | 2023-10-07 02:13 | XMS_ITS | Encounter Summary ---
Author Organization [facility] Address [address] [place] [address] Care Team Providers Care Salon Sales Consultant Name Role Phone Svitlana Oloms MD Primary Care Provider [phone] Reason for Visit * Reason Comments Shoulder Problem Encounter Details Date Type Department Care Team (Late st Contact Info) Description 09/05/2023 10:30 AM CDT Therapy [facility] [address] [phone] [place]és[place] [address] [place] [address] Traumatic tear of right rotator cuff, unspecified [...] 45 degrees Treatment/Education Today: Therapeutic Exercise (CPT 78708) x 39 minutes: - objective measures above [...] Current Home Exercise Program List: Access Code: [email or web address] - Supine Elbow Flexion Extension AROM - [...] management tasks with ease in 8 weeks. [place] hair and face in 8 weeks. Reach [...] AM CDT Appointment [facility] [address] [place] [address] Svitlana Olmos MD [facility] [place] [address] Hospital Discharge Follow-up 10/20/2023 10:30 AM CDT Appointment [facility] Neurosurgery/Ortho Spine [address] [place] [address] 12/06/2023 10:20 AM CDT Appointment [facility] Neurosurgery/Ortho Spine [address] [place] [address] Jg Munguia MD [address] [facility] [place], [place] [phone] 01/03/2024 11:20 AM AGRICULTURAL ENGINEERING TEACHER Appointment [facility] [address] [place], [place] [phone] L[facility]DEAC[facility] [address] [place], [place] [phone] documented as of this encounter Visit Diagnoses Diagnosis Traumatic tear of right rotator cuff, unspecified tear extent, subsequent encounter- Primary Recurrent cold sores Herpes simplex without mention of complication documented in this encounter Care Teams Salon Sales Consultant Relationship Specialty Start Date End Date Svitlana Olmos MD [address] [place] [address] PCP - General 05/30/10 documented as of this encounter
--- OUTSIDE RECORDS SUMMARY | 2023-10-07 02:13 | XMS_ITS | Encounter Summary ---
Author Organization [facility] Address [address] [place] [address] Care Team Providers Care Instructor Creeler Name Role Phone Svitlana Olmos MD Primary Care Provider [phone] Reason for Visit * Reason Comments SHOULDER PAIN Encounter Details Date Type Department Care Team (Late st Contact Info) Description 09/06/2023 9:50 AM CDT Office Visit [facility] 8[address] [place], [place] [address] Allison Harkins MD 8[address] [place] [address] S/P rotator cuff repair (Primary Dx) Social History Tobacco Use Types Packs/Day Years Used Date Smoking Tobacco: Every Day Cigarettes 1 40.2 Started: 02/28/1979; Last attempted to quit: 05/30/2019 Smokeless Tobacco: Never Comments:Smoking History Pac ks/day: quit 06/13/2023 Alcohol Use Standard Drinks/Week Comments No 0 (1 standard drink = 0.6 oz pur e alcohol) [facility] Utilities Answer Date Recorded In the [...] 9:00 AM CDT Appointment [facility] [place] [address] Svitlana Olmos MD [address] [place] [address] [place]ONS [address] Hospital Discharge Follow-up 10/20/2023 10:30 AM CDT Appointment [facility] Neurosurgery/Ortho Spine [address] [facility] [place] [address] 12/06/2023 10:20 AM CDT Appointment [facility] Neurosurgery/Ortho Spine [address] [place] [address] Jg Munguia MD [address] [place] [address] 01/03/2024 11:20 AM ELECTRICIANS TOP HELPER Appointment [facility] [address] [place] [address] Latha Burns, [facility] [address] [place] [address] documented as of this encounter Visit Diagnoses Diagnosis S/P rotator cuff repair- Primary Other postprocedural status Recurrent cold sores Herpes simplex without mention of complication documented in this encounter Care Teams Instructor Creeler Relationship Specialty Start Date End Date Svitlana Olmos MD [address] [place] [id number] PCP - General 05/30/10 documented as of this encounter
--- OUTSIDE RECORDS SUMMARY | 2023-10-07 02:13 | XMS_ITS | Encounter Summary ---
Author Organization [facility] Address [address] [place] [address] Care Team Providers Care Stator Winder Name Role Phone Svitlana Olmos MD Primary Care Provider [phone] Reason for Visit * Auth/Cert (Routine) Specialty Diagnoses / Procedures Referred By Martir seay Referred To Contact Diagnoses Meningioma (HRC) . Procedures Stealth guided Medial Eyebrow Craniotomy for Meningioma Resection. IMAGE GUIDANCE ADD ON NEURO (*) Referral ID Status Reason Start Date Expiration Date Visits Re quested Visits Authorized [id number] 1 1 Encounter Details Date Type Department Care Team (Late st Contact Info) Description 09/14/2023 7:36 AM CDT Anesthesia Event [facility] Operating Room 640 [place] [address] Yanique Flores MD [address] [place] [address] Kylah Butterfield APRN, CRNA [address] [place] [address] Anesthesia Record Procedure Summary Procedure Name Responsible [...] report Electronically signed by Kylah Butterfield APRN, GEOMORPHOLOGY TEACHER 1302 An Stop Care transferre d. Meds [...] Drains, and Airways Type Details Placement Removal Incision/Surgical Site 09/14/23; 09; Face, Forehead 09/14/23 09 by Eunice Pope RN Peripheral IV Placement Date: 09/14/23; Placement Time: 06; Pre-existing: No; Inserted by?: RN; Size (Gauge): 18 G; Orientation: Right; Site Prep: Alcohol; Local Anesthetic: None; Insertion attempts: 1; Blood draw with insertion?: yes; Patient Tolerance: Tolerated well; Removal Date: 09/28/23; Removal Time: 231409/14/[address] RN 09/28/232314 by Breanne Herman RN ETT Placement Date: 09/14/23; Placement Time: 799; Placed By: GEOMORPHOLOGY TEACHER; Induction Type: Pre-O2, IV; Masking: Easy; ETT [...] By: ISACC; Transferred with Oxygen: Yes 09/14/23 0800 by Kylah Butterfield APRN, CRNA 09/14/23 1252 by Kylah Butterfield APRN, CRNA Indwelling Urethral Catheter 09/14/23; 08; No; Eunice Pope; 1 person; Indwelling Catheter With Core Temp Probe; 16 Fr.; 1 09/14/23 0805 by Eunice Pope RN 09/14/23 1233 by Eunice Pope RN Arterial Line Placement Date: 09/14/23; Placement Time: 804; Pre-existing: No; Inserted By?: Anesthesiologist; Antimicrobial?: Line & Patch; Size: 20 gauge; Orientation: Left; Location: Radial; Site Prep: Chlorhexidine; Local Anesthetic: None; Insertion attempts: 1; Securement Method: Taped; Patient Tolerance: Tolerated well; Met Standard Sterile Barrier Technique: Met Standard Sterile Barrier Technique; Removal Date: 09/15/23; Removal Time: 1045; Removal Reason: Per Order 09/14/23 0805 by Kylah Butterfield APRN, ISACC 09/15/23 1045 by Kimberly Delcid RN Peripheral IV Placement Date: 09/14/23; Placement Time: 0806; Removal Date: 09/14/23; Removal Time: 1257; Removal Reason: Other (Comment) (not in place) 09/14/23 0806 by Kylah Butterfield APRN, GEOMORPHOLOGY TEACHER 09/14/23 1257 by Nicole Fox RN Peripheral IV Placement Date: 09/14/23; Placement Time: 805; Pre-existing: No; Inserted by?: ISACC; Size (Gauge): 18 G; Orientation: Left; Site Prep: Alcohol; Local Anesthetic: None; Insertion attempts: 1; Blood draw with insertion?: no; Patient Tolerance: Tolerated well; Removal Date: 10/06/23; Removal Time: 1523 09/14/23 0806 by Kylah Butterfield APRN, GEOMORPHOLOGY TEACHER 10/06/23 1523 by Mike, Discontinue documented in this encounter Social History Tobacco Use Types Packs/Day Years Used Date Smoking Tobacco: Every Day Cigarettes 1 40.2 Started: 02/28/1979; Last attempted to quit: 05/30/2019 Smokeless Tobacco: Never Comments:Smoking History Pac ks/day: quit 06/13/2023 Alcohol Use Standard Drinks/Week Comments No 0 (1 standard drink = 0.6 oz pur e alcohol) [facility] Utilities Answer Date Recorded In the past 12 months has [employer], oil, or water [employer] threatened to shut off services in your [...] Flores MD - 09/14/2023 2:31 PM CDT [facility] Anesthesia Post-op Note Patient: Ruthann Rosas Post-Op Diagnosis: Pre-Op Diagnosis Codes: * Meningioma (HRC) [D32.9] Procedure Performed: Procedure(s): Right - Stealth [...] Flores MD - 09/14/2023 6:47 AM CDT [facility] Anesthesia Pre-op Evaluation Procedure: Stealth guided Medial Eyebrow Craniotomy for Meningioma Resection., Right IMAGE GUIDANCE ADD ON NEURO (*), N/A HPI: 58 y.o. old female. Pre-Op Diagnosis Codes: * Meningioma (C) [D32.9] Last Fluid Intake Time: 2300 Last [...] and Arterial line The patient and/or their b2b outside sales representative were notified about the potential risks [...] AM CDT Appointment [facility] [address] [place] [address] Svitlana Olmos MD [address] [place] [address] Hospital Discharge Follow-up 10/20/2023 10:30 AM CDT Appointment [facility] [address] [facility] [place] [address] 12/06/2023 10:20 AM CDT Appointment [facility] Neurosurgery/Ortho Spine [address] [facility] [place] [address] Jg Munguia MD [address] [place] [address] 01/03/2024 11:20 AM HIGH SCHOOL FOREIGN LANGUAGE TEACHER Appointment [facility] Dental [facility] [address] [place], [place] [phone] [facility] [address] [place], [place] [phone] documented as of this encounter Procedures Procedure [...] g documented in this encounter Care Teams Stator Winder Relationship Specialty Start Date End Date Svitlana Olmos MD [address] [place] [address] PCP - General 05/30/10 documented as of this encounter
--- OUTSIDE RECORDS SUMMARY | 2023-10-07 02:14 | XMS_ITS | Encounter Summary ---
Author Organization [facility] Address [address], [place] [address] Care Team Providers Care Analysis Reporting Developer Name Role Phone Svitlana Olmos MD Primary Care Provider [phone] Reason for Visit * Reason Comments PRE-OP EXAM Encounter Details Date Type Department Care Team (Late st Contact Info) Description 08/31/2023 10:30 AM CDT Pre-Op Visit [facility] [address] [place] [address] [place] [phone] Svitlana Olmos MD [address] [place] [phone] Preoperative examination (Primary Dx); Meningioma (HRC); Chronic [...] described above. In addition, please stop all gsjc-wih-vaqvzlr medications including aspirin, ibuprofen (Advil, Motrin), naproxen [...] Details Procedure Meningioma resection Surgeon Dr Munguia [facility] Procedure Date 09/14/2023 Falguni Beavers is [...] Note: Added automatically from request for surgery [id number] Recurrent cold sores 06/18/2013 Past Medical History: [...] Appointment [facility] [address] [place] [address] Svitlana Olmos MD [address] [place] [address] Hospital Discharge Follow-up 10/20/2023 10:30 AM CDT Appointment [facility] Neurosurgery/Ortho Spine [address] [place] [address] 12/06/2023 10:20 AM CDT Appointment [facility] Neurosurgery/Ortho Spine [address] [place] [address] Jg Munguia MD [address] [place], [place] [phone] 01/03/2024 11:20 AM MECHANIC INSULATOR Appointment [facility] Dental [facility] [address] [place], [place] [phone] [facility] [address] [place], [place] [phone] documented as of this encounter Procedures Procedure [...] Staphylococcus aureus Isolated 09/01/2023 2:32 PM CDT [facility] Swab (Source Required) ENTIRE ANTERIOR NARIS / Unknown Non-blood Collection / Unknown 08/31/2023 11:03 AM CDT 08/31/2023 11:06 AM CDT Svitlana Olmos MD LAB_[address] [address], [facility] * ECG 12 Lead Outpatient (08/31/2023 10:50 AM CDT) Ventricular Rate 61 BPM [facility] Atrial Rate 61 BPM [facility] P-R Interval 214 ms [facility] QRS Duration 84 ms [facility] QT 466 ms [facility] QTc 469 ms [facility] P [place] 57 degrees [facility] R [place] 1 degrees [facility] T [place] 34 degrees [facility] 08/31/2023 10:5 0 [...] AM Svitlana Olmos MD PN ECG ORDERABLES MUSE [facility] [address] [place] [address] documented in this encounter Visit Diagnoses Diagnosis Preoperative examination- Primary Preoperative examination, unspecified Meningioma (HRC) Benign neoplasm of cerebral meninges Chronic insomnia Insomnia, unspecified Preop examination Preoperative examination, unspecified Recurrent cold sores Herpes simplex without mention of complication documented in this encounter Care Teams Analysis Reporting Developer Relationship Specialty Start Date End Date Svitlana Olmos MD [address] [place] [address] PCP - General 05/30/10 documented as of this encounter
--- OUTSIDE RECORDS SUMMARY | 2023-10-07 02:14 | XMS_ITS | Clinical Summary ---
Author Organization [employer] Address [facility]ly [facility] [facility] [place] [address] Care Team Providers Care Aluminum Boat Inspector Name Role Phone Svitlana Olmos Primary Care Provider [phone] Allergies No known active allergies Medications Medication [...] Advance Directives For more information, please contact: [phone] * Full Code (Latest Code Status on File) Date Activated Date Inactivated Comments 07/28/2010 5:56 PM 07/31/2010 4:34 PM Care Teams Aluminum Boat Inspector Relationship Specialty Start Date End Date Svitlana Olmos PCP - General Family Practice 06/20/17
--- OUTSIDE RECORDS SUMMARY | 2023-10-07 02:14 | XMS_ITS | Encounter Summary ---
Author Organization [facility] [employer] Address [address], [place] [address] Care Team Providers Care Manufacturing Coordinator Name Role Phone Svitlana Olmos MD Primary Care Provider [phone] Reason for Referral * Procedure/Equipment (Routine) - Incomplete Specialty Diagnoses / Procedures Referred By Contgary t Referred To Contact Diagnoses Arm mass, right Procedures US VENOUS RIGHT UPPER EXTREM DOPPLER Doe Cuellar PA-C [address] [place] [address] Referral ID Status Reason Start Date Expiration Date V isits Requested Visits Authorized [id number] Incomplete 07/12/2023 10/10/2024 1 1 Reason for Visit * Reason Comments Lump Encounter Details Date Type Department Care Team (Late st Contact Info) Description 07/12/2023 5:40 PM CDT Office Visit [facility] [address] [place] [phone] Doe Cuellar PA-C [address] [place], [place] [phone] Arm mass, right; Arm edema Social History [...] 9:00 AM CDT Appointment [facility] [place] [address] Svitlana Olmos MD [address] [place] [address] [address] Hospital Discharge Follow-up 10/20/2023 10:30 AM CDT Appointment [facility] Neurosurgery/Ortho Spine [address] [facility] [place] [place] [address] 12/06/2023 10:20 AM CDT Appointment [facility] Neurosurgery/Ortho Spine [address] [facility] [place] [place] [address] Jg Munguia MD [address] [place] [address] 01/03/2024 11:20 AM IMPLEMENTATION COORDINATOR Appointment [facility] [place] [address] [place] [address] Latha Burns [facility] [address] [place], [place] [phone] documented as of this encounter Results * [...] right Arm edema Edema Arm mass, right Recurrent cold sores Herpes simplex without mention of complication documented in this encounter Care Teams Manufacturing Coordinator Relationship Specialty Start Date End Date Svitlana Olmos MD [address] [place] [address] PCP - General 05/30/10 documented as of this encounter
--- OUTSIDE RECORDS SUMMARY | 2023-10-07 02:14 | XMS_ITS | Encounter Summary ---
Author Organization [facility] Address [address] [place] [address] Care Team Providers Care Bar Useful Or Busser Name Role Phone Svitlana Olmos MD Primary Care Provider [phone] Reason for Visit * Reason Comments Problem Focused Exam Broken tooth, no pa in - points to #3 Encounter Details Date Type Department Care Team (Late st Contact Info) Description 07/28/2023 2:00 PM CDT Office Visit [facility] [place] [address] [place] [address] Brandy Chou, DDS [address] [place] [address] Problem Focused Exam (Broken tooth, no pain [...] AM CDT Appointment [facility] [address] [place]ena [address] Svitlana Olmos MD [address] [place] JANET LYONS [address] Hospital Discharge Follow-up 10/20/2023 10:30 AM CDT Appointment [facility] Neurosurgery/Ortho Spine [address] [place] Segal [address] 12/06/2023 10:20 AM CDT Appointment [facility] Neurosurgery/Ortho Spine [address] J[place] Segal [address] Jg Munguia MD [address] [place] [address] 01/03/2024 11:20 AM PACKAGE DESIGNER Appointment [facility] [place] [address] [place], [place] [phone] Latha Burns, [facility] [address] [place], [place] [phone] Scheduled Orders Name Type Priority Associated Diagnoses [...] enamel layer LIMITED ORAL EVALUATION Routine 07/28/19 24 2:00 PM CDT Fracture of crown of tooth limited to enamel layer documented in this encounter Visit Diagnoses Diagnosis Fracture of crown of tooth limited to enamel layer- Primary Recurrent cold sores Herpes simplex without mention of complication documented in this encounter Care Teams Bar Useful Or Busser Relationship Specialty Start Date End Date Svitlana Olmos MD [address] [place] [address] PCP - General 05/30/10 documented as of this encounter
--- OUTSIDE RECORDS SUMMARY | 2023-10-07 02:14 | XMS_ITS | Encounter Summary ---
Author Organization [facility] Address [address] [place] [address] Care Team Providers Care Product Support Specialist Name Role Phone Shashank Olmos MD Primary Care Provider [phone] Reason for Visit * Reason Comments Refill traZODone (DESYREL) 100 MG tablet [Pharmacy Med Name: TRAZODONE 100MG TABLETS] Encounter Details Date Type Department Care Team (Late st Contact Info) Description 06/02/2023 Refill [facility]5 [place] JANET Pena [phone] Shashank Olmos MD [address] [place] [address] [place] [phone] Refill (traZODone (DESYREL) 100 MG tablet [Pharmacy [...] visit: None [facility] Embedded Refills, Reference: [id number], 06/02/2023 8:07:18 AM FLORINAT, Jason: JOHNATHAN Refill Centralized Services - Primary Care [[id number]] ([id number]) documented in this encounter Plan of Treatment Upcoming Encounters Date Type Department Care Team (Late st Contact Info) Description 10/12/2023 9:00 AM CDT Appointment [facility] [address] [place] [address] Shashank Olmos MD [address] [facility] [address] Hospital Discharge Follow-up 10/20/2023 10:30 AM CDT Appointment [facility] Neurosurgery/Ortho Spine [address] [place] [address] 12/06/2023 10:20 AM CDT Appointment [facility] Neurosurgery/Ortho Spine [address] [place] [address] Jg Munguia MD [address] [place] [address] 01/03/2024 11:20 AM REVENUE LIAISON Appointment Replaced by [facility] [place] [address] [place] [id number] Latha Burns, [facility] [address] [place] [address] documented as of this encounter Visit Diagnoses Diagnosis Chronic insomnia Insomnia, unspecified Recurrent cold sores Herpes simplex without mention of complication documented in this encounter Care Teams Product Support Specialist Relationship Specialty Start Date End Date Shashank Olmos MD [address] [place] [address] PCP - General 05/30/10 documented as of this encounter
--- OUTSIDE RECORDS SUMMARY | 2023-10-07 02:14 | XMS_ITS | Encounter Summary ---
Author Organization [facility] Address [address] [place] [address] Care Team Providers Care Plastic Manager Name Role Phone Svitlana Olmos MD Primary Care Provider [phone] Reason for Visit * Reason Comments Shoulder Problem Encounter Details Date Type Department Care Team (Late st Contact Info) Description 08/23/2023 11:15 AM CDT Therapy [facility] [address] [phone] [place]és[place] [address] [place] [address] Traumatic tear of right rotator cuff, unspecified [...] 90 degrees Treatment/Education Today: Therapeutic Exercise (CPT 31333) x 39 minutes: - objective measures above [...] Current Home Exercise Program List: Access Code: [email or web address] - Supine Elbow Flexion Extension AROM - [...] management tasks with ease in 8 weeks. [place] hair and face in 8 weeks. Reach overhead to put items on high shelf with ease in 10 weeks. Driving: Use affected upper extremity for driving in 8 weeks. PLAN: Continue per protocol documented in this encounter Plan of Treatment Upcoming Encounters Date Type Department Care Team (Late st Contact Info) Description 10/12/2023 9:00 AM CDT Appointment [facility] [address] JANET Chen [id number] Svitlana Olmos MD [facility] [place] JAN[place] LYONS [id number] Hospital Discharge Follow-up 10/20/2023 10:30 AM CDT Appointment [facility] Neurosurgery/Ortho Spine [address] [facility] [place] Segal [address] 12/06/2023 10:20 AM CDT Appointment [facility] Neurosurgery/Ortho Spine 295 [facility] [place] [address] Jg Munguia MD 295 [place] [address] 01/03/2024 11:20 AM MOWER OPERATOR Appointment [facility] [address] [place] [address] [facility] [address] [place] [address] documented as of this encounter Visit Diagnoses Diagnosis Traumatic tear of right rotator cuff, unspecified tear extent, subsequent encounter- Primary Recurrent cold sores Herpes simplex without mention of complication documented in this encounter Care Teams Plastic Manager Relationship Specialty Start Date End Date Svitlana Olmos MD [address] [place] [address] PCP - General 05/30/10 documented as of this encounter
--- OUTSIDE RECORDS SUMMARY | 2023-10-07 02:14 | XMS_ITS | Encounter Summary ---
Author Organization [facility] Address [address] [place] [address] Care Team Providers Care Veterinary Parasitologist Name Role Phone Svitlana Olmos MD Primary Care Provider [phone] Reason for Visit * Reason Comments Questions Surgery Encounter Details Date Type Department Care Team (Late st Contact Info) Description 08/02/2023 Telephone [facility] Neurosurgery/Ortho Spine 295 [facility] [place], [place] [phone] Jg Munguia MD 295 [place] [address] Questions (Surgery/) Social History Tobacco Use Types [...] post op preparation questions. She will have FMLA paperwork faxed to us for completion. Nury Ramon, RN 08/03/2023, 2:04 PM * Lillie Bolanos - 08/02/2023 2:39 PM CDT Reason for call: Questions about upcoming surgery Details given by patient: Patient states she has questions about surgery post-op and what she should expect during the recovery period. Please call patient and advise. Patient's preferred call back number: [phone] Can staff leave a DETAILED voicemail? Yes Patient last seen provider in office or telemedicine: 06/14/2023 Lillie Samuel, Export Freight Manager 08/02/2023 2:41 PM documented in this encounter Plan of Treatment Upcoming Encounters Date Type Department Care Team (Late st Contact Info) Description 10/12/2023 9:00 AM CDT Appointment [facility] [place] [address] Svitlana Olmos MD [facility] [place] JANET LYONS [address] Hospital Discharge Follow-up 10/20/2023 10:30 AM CDT Appointment [facility] Neurosurgery[facility]Ortho Spine [address] [facility] [place] [address] 12/06/2023 10:20 AM CDT Appointment [facility] Neurosurgery/Ortho Spine [address] [place] [address] Jg Munguia MD [address] [place] [address] 01/03/2024 11:20 AM JOCKEY'S AGENT Appointment [address] [address] Latha Burns, [facility] [address] [place] [address] documented as of this encounter Visit Diagnoses Not on filedocumented in this encounter Care Teams Veterinary Parasitologist Relationship Specialty Start Date End Date Svitlana Olmos MD [address] [place], [place] [id number] PCP - General 05/30/10 documented as of this encounter
--- OUTSIDE RECORDS SUMMARY | 2023-10-07 02:14 | XMS_ITS | Encounter Summary ---
Author Organization [facility] Address [address], [place] [address] Care Team Providers Care Carder Blankets Name Role Phone Svitlana Olmos MD Primary Care Provider [phone] Reason for Visit * Reason Comments Shoulder Problem * Therapies (Routine) - New Request Specialty Diagnoses / Procedures Referred By Martir seay Referred To Contact Diagnoses Traumatic complete tear of right rotator cuff, initial encounter Allison Harkins MD [address] [place] [address] Referral ID Status Reason Start Date Expiration Date V isits Requested Visits Authorized [id number] New Request 06/28/2023 06/27/[phone] Encounter Details Date Type Department Care Team (Late st Contact Info) Description 07/18/2023 10:30 AM CDT Therapy [facility] [address] [place], [place] [address] Sherman Mccallum, PT [address] [place], [place] [address] Traumatic tear of right rotator cuff, unspecified [...] Shoulder Evaluation/Plan of Care [facility] Referring Provider: Allison Harkins Referring Diagnosis: 1. [...] neutral TREATMENT TODAY: Physical Therapy Evaluation (CPT 68325): An evaluation was performed. The patient was determined tohave low complexity based on history, examination, clinical presentation of the patient and the PT's clinical decision making. The patient was educated on the condition, planned therapy intervention and expectations from treatment. Goals were a collaborative effort of the therapist and patient. Therapeutic Exercise (CPT 76368) x 24 minutes: Access Code: [email or web address] - Supine Elbow Flexion Extension AROM - [...] management tasks with ease in 8 weeks. [place] hair and face in 8 weeks. Reach overhead to put items on high shelf with ease in 10 weeks. Driving: Use affected upper extremity for driving in 8 weeks. Evaluation and Plan of Care completed by: Sherman Mccallum, JOYCE 10:38 AM 07/18/2023 The dining car waiter/waitress is completed by the therapist and the referring clinician's electronic signature certifies medical necessity for the plan above. documented in this encounter Plan of Treatment Upcoming Encounters Date Type Department Care Team (Late st Contact Info) Description 10/12/2023 9:00 AM CDT Appointment [facility] [address] [place], [place] [address]JANET Hussein [address] Svitlana Olmos MD [address] [place] [address] [place] [address] Hospital Discharge Follow-up 10/20/2023 10:30 AM CDT Appointment [facility] Neurosurgery/Ortho Spine 295 [place] [address] 12/06/2023 10:20 AM CDT Appointment [facility] Neurosurgery/Ortho Spine [address] [place] [address] Jg Munguia MD 295 [place] [address] 01/03/2024 11:20 AM BLENDER OPERATOR Appointment [facility] [place] [address] [place] [address] [place] [address] [place] [address] Scheduled Referrals Name Type Priority Associated Diagnoses Orde r Schedule Physical Therapy Referral Routine Traumatic complete tear of right rotator cuff, initial encounter Ordered: 06/28/2023 documented as of this encounter Visit Diagnoses Diagnosis Traumatic tear of right rotator cuff, unspecified tear extent, subsequent encounter- Primary Recurrent cold sores Herpes simplex without mention of complication documented in this encounter Care Teams Carder Blankets Relationship Specialty Start Date End Date Svitlana Olmos MD [address] [place] [address] PCP - General 05/30/10 documented as of this encounter
--- OUTSIDE RECORDS SUMMARY | 2023-10-07 02:14 | XMS_ITS | Encounter Summary ---
Author Organization [facility] Address [address] [place] [address] Care Team Providers Care Information Analyst Name Role Phone Svitlana Olmos MD Primary Care Provider [phone] Reason for Visit * Reason Comments Shoulder Problem Encounter Details Date Type Department Care Team (Late st Contact Info) Description 07/28/2023 9:45 AM CDT Therapy [facility] [address] [phone] [place]és[place] [address] [place] [address] Traumatic tear of right rotator cuff, unspecified [...] from neutral Treatment/Education Today: Therapeutic Exercise (CPT 50472) x 45 minutes: - objective measures above [...] Current Home Exercise Program List: Access Code: [email or web address] - Supine Elbow Flexion Extension AROM - [...] management tasks with ease in 8 weeks. [place] hair and face in 8 weeks. Reach overhead to put items on high shelf with ease in 10 weeks. Driving: Use affected upper extremity for driving in 8 weeks. PLAN: Continue per protocol documented in this encounter Plan of Treatment Upcoming Encounters Date Type Department Care Team (Late st Contact Info) Description 10/12/2023 9:00 AM CDT Appointment [facility] [address] [place] Chen [address] Svitlana Olmos MD [address] [place]ONS [address] Hospital Discharge Follow-up 10/20/2023 10:30 AM CDT Appointment [facility] Neurosurgery[facility]Ortho Spine [address] [facility] [place] [address] 12/06/2023 10:20 AM CDT Appointment [facility] Neurosurgery/Ortho Spine [address] [facility] [place] [address] Jg Munguia MD [address] [facility] [place] [address] 01/03/2024 11:20 AM CERAMIC PRODUCTS SALES ENGINEER Appointment [facility] Dental [facility] [address] [place] [address] Latha Burns, [facility] [address] [place], [place] [phone] documented as of this encounter Visit Diagnoses Diagnosis Traumatic tear of right rotator cuff, unspecified tear extent, subsequent encounter- Primary Recurrent cold sores Herpes simplex without mention of complication documented in this encounter Care Teams Information Analyst Relationship Specialty Start Date End Date Svitlana Olmos MD [address] [place] [address] PCP - General 05/30/10 documented as of this encounter
--- OUTSIDE RECORDS SUMMARY | 2023-10-07 02:14 | XMS_ITS | Encounter Summary ---
Author Organization [facility] Address [address] [place] [address] Care Team Providers Care Gas Station Supervisor Name Role Phone Svitlana Olmos MD Primary Care Provider [phone] Reason for Visit * Reason Comments Problem Focused Exam Encounter Details Date Type Department Care Team (Late st Contact Info) Description 07/21/2023 Telephone [facility] [place] [address] [place] [address] Fabiola Batres, S [address] [place] [address] Problem Focused Exam Social History Tobacco Use [...] Info) Description 10/12/2023 9:00 AM CDT Appointment [facility] [address] [place] [address] Svitlana Olmos MD [address] [place] [address] Hospital Discharge Follow-up 10/20/2023 10:30 AM CDT Appointment [facility] Neurosurgery/Ortho Spine [address] [place] [address] 12/06/2023 10:20 AM CDT Appointment [facility] Neurosurgery/Ortho Spine [address] [place] [address] Jg Munguia MD [address] [place] [address] 01/03/2024 11:20 AM TIN POT OPERATOR Appointment [facility] Dental [facility] [address] [place] [address] [facility] [address] [place] [address] documented as of this encounter Visit Diagnoses Not on filedocumented in this encounter Care Teams Gas Station Supervisor Relationship Specialty Start Date End Date Svitlana Olmos MD [address] [place] [address] PCP - General 05/30/10 documented as of this encounter
--- OUTSIDE RECORDS SUMMARY | 2023-10-07 02:14 | XMS_ITS | Encounter Summary ---
Author Organization [facility] Address [address], [place] [address] Care Team Providers Care Hide Cooking Operator Name Role Phone Svitlana Olmos MD Primary Care Provider [phone] Reason for Visit * Procedure/Equipment (Routine) - Incomplete Specialty Diagnoses / Procedures Referred By Contac t Referred To Contact Diagnoses Arm mass, right Procedures US VENOUS RIGHT UPPER EXTREM DOPPLER Doe Cuellar PA-C [address] [place] [address] Referral ID Status Reason Start Date Expiration Date V isits Requested Visits Authorized [id number] Incomplete 07/12/2023 10/10/2024 1 1 Encounter Details Date Type Department Care Team (Latest Contact Info) Description 07/12/2023 6:45 PM CDT Ancillary Procedure Brisa Rodriguez [place] [address] Ultrasound [address] [place] [phone] Doe Cuellar PA-C [address] [place] [address] Arm mass, right Social History [...] AM CDT Appointment [facility] [address] [place] [address] Svitlana Olmos MD [address] [place] [address]ONS [id number] Hospital Discharge Follow-up 10/20/2023 10:30 AM CDT Appointment [facility] Neurosurgery/Ortho Spine [address] [place] [address] 12/06/2023 10:20 AM CDT Appointment [facility] Neurosurgery/Ortho Spine [address] [place] [address] Jg Munguia MD [address] [place] [address] 01/03/2024 11:20 AM CHIEF CREATIVE OFFICER Appointment [facility] [address] [place] [address] Latha Burns [facility] [address] [place], [place] [phone] documented as of this encounter Procedures Procedure [...] for cellulitis. No drainable fluid collection. Doe S Madyson JIMENEZ US documented in this encounter Visit Diagnoses Diagnosis Arm mass, right Recurrent cold sores Herpes simplex without mention of complication documented in this encounter Care Teams Hide Cooking Operator Relationship Specialty Start Date End Date Svitlana Olmos MD [address] [place] [address] PCP - General 05/30/10 documented as of this encounter
--- OUTSIDE RECORDS SUMMARY | 2023-10-07 02:14 | XMS_ITS | Encounter Summary ---
Author Organization [facility] Address [address] [place] [address] Care Team Providers Care Oracle Ebs Developer Name Role Phone Svitlana Olmos MD Primary Care Provider [phone] Reason for Visit * Reason Comments Post-Op Check Encounter Details Date Type Department Care Team (Late st Contact Info) Description 07/29/2023 10:30 AM CDT Office Visit [facility] 8[address] [place] [address] Alphonse Zhong OA [address] [place] [address] S/P rotator cuff repair (Primary Dx) Social [...] Zhong OA - 07/29/2023 10:30 AM CDT [facility] Surgeon: Allison Harkins MD Date of [...] reported: none. Pt reports attending PT at [facility]. Ruthann states that she does have occasional [...] AM CDT Appointment [facility] [address] [place] [address] Svitlana Olmos MD [facility] J[place]ET [place] [id number] Hospital Discharge Follow-up 10/20/2023 10:30 AM CDT Appointment [facility] Neurosurgery/Ortho Spine 295 [facility]. JANET Segal [id number] 12/06/2023 10:20 AM CDT Appointment [facility] Neurosurgery/Ortho Spine 295 [facility] [place] [address] Jg Munguia MD 295 [place] [address] 01/03/2024 11:20 AM MARKETING SERVICES REP Appointment [facility] Dental [facility] [address] [place] [address] [facility] [address] [place] [address] documented as of this encounter Visit Diagnoses Diagnosis S/P rotator cuff repair- Primary Other postprocedural status Recurrent cold sores Herpes simplex without mention of complication documented in this encounter Care Teams Oracle Ebs Developer Relationship Specialty Start Date End Date Svitlana Olmos MD [address] [place] [address] PCP - General 05/30/10 documented as of this encounter
--- OUTSIDE RECORDS SUMMARY | 2023-10-07 02:14 | XMS_ITS | Encounter Summary ---
Author Organization [facility] Address [address] [place] [address] Care Team Providers Care Hvac Maintenance Technician Name Role Phone Svitlana Olmos MD Primary Care Provider [phone] Reason for Visit * Reason Comments QUESTIONS, GENERAL Pt requesting to spe ak with care team regarding right arm and hand swelling and numbness in hand and fingers postoperatively. Encounter Details Date Type Department Care Team (Late st Contact Info) Description 08/09/2023 Telephone [facility] 8100 [place], [place] [address] Allison Harkins MD [address] [place], [place] [phone] QUESTIONS, GENERAL (Pt requesting to speak with [...] can we send you a message in [employer]? No [Flash Welding Machine Operator/Cashier Parking Lot: Relay to patient; We make every effort to get back to you sameday, however it may take 1-2 business days depending on the nature of the communication.] documented in this encounter Plan of Treatment Upcoming Encounters Date Type Department Care Team (Late st Contact Info) Description 10/12/2023 9:00 AM CDT Appointment [facility] [address] [place] [address] Svitlana Olmos MD [address] [place] [address]ONS [id number] Hospital Discharge Follow-up 10/20/2023 10:30 AM CDT Appointment [facility] Neurosurgery/Ortho Spine [address] [place] [address] 12/06/2023 10:20 AM CDT Appointment [facility] Neurosurgery/Ortho Spine [address] [place] [address] Jg Munguia MD [address] [place] [address] 01/03/2024 11:20 AM PLASTERING SUPERVISOR Appointment [facility] Dental [facility] [address] [place] [address] Latha Burns, [facility] [address] [place] [address] documented as of this encounter Visit Diagnoses Not on filedocumented in this encounter Care Teams Hvac Maintenance Technician Relationship Specialty Start Date End Date Svitlana Olmos MD [address] [place] [address] PCP - General 05/30/10 documented as of this encounter
--- OUTSIDE RECORDS SUMMARY | 2023-10-07 02:14 | XMS_ITS | Encounter Summary ---
Author Organization [facility] Address [address] [place] [address] Care Team Providers Care Piping Drafter Name Role Phone Svitlana Olmos MD Primary Care Provider [phone] Reason for Referral * Therapies (Routine) - New Request Specialty Diagnoses / Procedures Referred By Martir seay Referred To Contact Diagnoses Right arm numbness Andrei Landeros APRN, TAR POT WORKER [address] [facility] [place] [address] Referral ID Status Reason Start Date Expiration Date V isits Requested Visits Authorized [id number] New Request 08/25/2023 08/24/2024 1 1 Scheduling Instructions Your clinician has recommended an appointment with Rehabilitation Services. You can quickly make your appointment online at [employer]/schedule. You can also call [phone] for help scheduling your appointment. We suggest [...] Description 08/25/2023 12:40 PM CDT Office Visit [facility] [place] [address] [place] [address] Henry Odom MD [address] [facility] J[place]ET CRONIN [address] Andrei Landeros APRN, TAR POT WORKER [address] [facility] J[place]ET Cronin [address] Right arm numbness (Primary Dx) Social History [...] Instructions * Patient Instructions* Andrei Landeros, DELMY, TAR POT WORKER - 08/25/2023 12:40 PM CDT Thank you for Choosing [facility] for your health care visit today. Andrei Landeros DNP Hand & Upper Extremity Specialist Medication Requests: Prescriptions are not filled on weekends or on weekdays after 3:00 PM. For all medication refills: Request a refill using [employer] or contact your pharmacy. What is Know Your Cost? Know Your Cost is a service for patients and patient/members to call and receive personalized cost information and estimates across our care group. The phone number is (COST) Tuesday - Tuesday 8 AM to 5 PM Advanced Imaging Scheduling: To schedule an MRI, Ultrasound, or Image guided injection at [facility] please call [phone]. To schedule an MRI or CT at a [facility] location please call [phone]. [facility] Workers' Compensation [address] [place] [address] (Phone) Email: [email or web address] Release of Information: Radiology/Imaging [address] [place] [address] (Phone) Health Information Management [address] [place] [address] (Phone) [employer] documented in this encounter Progress Notes * Andrei Landeros APRN, CNP - 08/25/2023 12:40 PM CDT [facility] Orthopaedic Surgery Consultation 08/25/2023 Date of Service: 08/25/2023 Date of : 1965 Chief Concern: Right hand numbness. Hand Dominance: Right. 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 History of Present Illness: Ruthann [...] the patient; this islocated in [employer] in [employer]. Review of Systems: A complete 15-point review [...] 9:00 AM CDT Appointment [facility] [address] [place] [address] JANET Pena [address] Svitlana Olmos MD [address] [place] [address] JANET LYONS [address] Hospital Discharge Follow-up 10/20/2023 10:30 AM CDT Appointment [facility] Neurosurgery/Ortho Spine [address] [place] [address] 12/06/2023 10:20 AM CDT Appointment [facility] Neurosurgery/Ortho Spine [address] [place] [address] Jg Munguia MD [address] [place] [address] 01/03/2024 11:20 AM PARARESCUE CRAFTSMAN Appointment [facility] Dental [facility] [address] [place] [address] Latha Burns, [facility] [address] [place] [address] Scheduled Referrals Name Type Priority Associated Diagnoses Orde r Schedule Hand Therapy Consult Referral Routine Right arm numbness Ordered: 08/25/2023 documented as of this encounter Visit Diagnoses Diagnosis Right arm numbness- Primary Disturbance of skin sensation Recurrent cold sores Herpes simplex without mention of complication documented in this encounter Care Teams Piping Drafter Relationship Specialty Start Date End Date Svitlana Olmos MD [address] [place] [address] PCP - General 05/30/10 documented as of this encounter
--- OUTSIDE RECORDS SUMMARY | 2023-10-07 02:14 | XMS_ITS | Encounter Summary ---
Author Organization [facility] Address [address] [place] [address] Care Team Providers Care Special Warfare Combatant Crewman Name Role Phone Svitlana Olmos MD Primary Care Provider [phone] Reason for Visit * Reason Comments Shoulder Problem Encounter Details Date Type Department Care Team (Late st Contact Info) Description 08/29/2023 2:15 PM CDT Therapy [facility] [address] [address] [place]és[place] [address] [place] [address] Traumatic tear of right rotator cuff, unspecified [...] 97 degrees Treatment/Education Today: Therapeutic Exercise (CPT 99719) x 39 minutes: - objective measures above [...] Current Home Exercise Program List: Access Code: [email or web address] - Supine Elbow Flexion Extension AROM - [...] management tasks with ease in 8 weeks. [place] hair and face in 8 weeks. Reach overhead to put items on high shelf with ease in 10 weeks. Driving: Use affected upper extremity for driving in 8 weeks. PLAN: Continue per protocol documented in this encounter Plan of Treatment Upcoming Encounters Date Type Department Care Team (Late st Contact Info) Description 10/12/2023 9:00 AM CDT Appointment [facility] [address] Soriano [address] Svitlana Olmos MD [address] [place] [address] Hospital Discharge Follow-up 10/20/2023 10:30 AM CDT Appointment [facility] Neurosurgery/Ortho Spine [address] [facility] [place] [address] 12/06/2023 10:20 AM CDT Appointment [facility] Neurosurgery/Ortho Spine [address] [facility] [place] [address] Jg Munguia MD 295 [place] [address] 01/03/2024 11:[address] Appointment [facility] [place] [address] [place] [address] [facility] [address] [place], [place] [id number] documented as of this encounter Visit Diagnoses Diagnosis Traumatic tear of right rotator cuff, unspecified tear extent, subsequent encounter- Primary Recurrent cold sores Herpes simplex without mention of complication documented in this encounter Care Teams Special Warfare Combatant Crewman Relationship Specialty Start Date End Date Svitlana Olmos MD [address] [place] [address] PCP - General 05/30/10 documented as of this encounter
--- OUTSIDE RECORDS SUMMARY | 2023-10-07 02:14 | XMS_ITS | Encounter Summary ---
Author Organization [employer] Address [address], [place] [address] Care Team Providers Care Supervisor Plastics Name Role Phone Svitalna Olmos MD Primary Care Provider [phone] Reason for Referral * Therapies (Routine) - New Request Specialty Diagnoses / Procedures Referred By Martir seay Referred To Contact Diagnoses S/P rotator cuff repair Allison Harkins MD [address] [place] [address] Referral ID Status Reason Start Date Expiration Date V isits Requested Visits Authorized [id number] New Request 08/16/2023 08/15/2024 1 1 Scheduling Instructions Your clinician has recommended an appointment with Rehabilitation Services. You can quickly make your appointment online at [employer]/schedule. You can also call [phone] for help scheduling your appointment. We suggest [...] Description 08/16/2023 1:00 PM CDT Office Visit [facility] [address] [place] [address] Allison Harkins MD [address] [facility] J[place]ET [place]bar[place] [address] S/P rotator cuff repair (Primary Dx) Social [...] Description 10/12/2023 9:00 AM CDT Appointment [facility] Medicine [address] [place] [id number] Svitlana Olmos MD [address] [place] JANET LYONS [id number] Hospital Discharge Follow-up 10/20/2023 10:30 AM CDT Appointment [facility] Neurosurgery/Ortho Spine [address] [place] [address] 12/06/2023 10:20 AM CDT Appointment [facility] Neurosurgery/Ortho Spine [address] [place] [address] Jg Munguia MD 295 [place] [address] 01/03/2024 11:20 AM ASSOCIATE SCHOOL PSYCHOLOGIST Appointment [facility] [place] [address] [place] [address] Latha Burns [facility] [address] [place], [place] [phone] Scheduled Referrals Name Type Priority Associated Diagnoses Orde r Schedule Hand Therapy Consult Referral Routine S/P rotator cuff repair Ordered: 08/16/2023 documented as of this encounter Visit Diagnoses Diagnosis S/P rotator cuff repair- Primary Other postprocedural status Recurrent cold sores Herpes simplex without mention of complication documented in this encounter Care Teams Supervisor Plastics Relationship Specialty Start Date End Date Svitlana Olmos MD [address] [place] [address] PCP - General 05/30/10 documented as of this encounter
--- OUTSIDE RECORDS SUMMARY | 2023-10-07 02:14 | XMS_ITS | Encounter Summary ---
Author Organization [facility] Address [address] [place] [address] Care Team Providers Care Bobcat Operator Name Role Phone Svitlana Olmos MD Primary Care Provider [phone] Reason for Visit * Reason Comments Forms [employer] Physici an's statement Encounter Details Date Type Department Care Team (Late st Contact Info) Description 08/31/2023 Telephone [facility] Neurosurgery/Ortho Spine [address] [facility] [place] [address] Jg Munguia MD 295 [place] [address] Forms ([facility] Physician's statement) Social History [...] - 09/06/2023 2:58 PM CDT Received from [place] to do bin. Faxed to [employer] at . Confirmation received. Form sent to scanning. Thanks. Darby Otto 09/06/2023, 2:58 PM * Bertha Ortiz RN - 09/06/2023 1:45 PM CDT Forms signed by provider and placed in [place] to-do bin to be faxed. Bertha Ortiz RN 09/06/2023,1:45 PM * Bertha Ortiz RN - 08/31/2023 11:05 AM CDT Forms have been printed, filled out, and placed in provider folder to be signed. Bertha Ortiz RN 08/31/2023, 11:05 AM * Darby Otot - 08/31/2023 10:45 AM CDT Received fax from patient. [employer] [facility] Attending Physician's Statement. Signature requested. Fax can be found in provider right fax folder. Darby Otto 08/31/2023, 10:46 AM documented in this encounter Plan of Treatment Upcoming Encounters Date Type Department Care Team (Late st Contact Info) Description 10/12/2023 9:00 AM CDT Appointment [facility] [address] [place] [address] Svitlana Olmos MD [address] [id number] Hospital Discharge Follow-up 10/20/2023 10:30 AM CDT Appointment [facility] Neurosurgery/Ortho Spine [address] [facility] [address] 12/06/2023 10:20 AM CDT Appointment [facility] Neurosurgery/Ortho Spine [address] [place] [address] Jg Munguia MD 295 [place] [address] 01/03/2024 11:20 AM RIVET HOLE PUNCHER Appointment [facility] Dental [facility] [address] [place], [place] [phone] [facility] [address] [place], [place] [id number] documented as of this encounter Visit Diagnoses Not on filedocumented in this encounter Care Teams Bobcat Operator Relationship Specialty Start Date End Date Svitlana Olmos MD [address] [place] [address] PCP - General 05/30/10 documented as of this encounter
--- OUTSIDE RECORDS SUMMARY | 2023-10-07 02:14 | XMS_ITS | Encounter Summary ---
Author Organization [facility] Address [address], [place] [address] Care Team Providers Care Carroting Machine Offbearer Name Role Phone Svitlana Olmos MD Primary Care Provider [phone] Reason for Visit * Reason Comments Hand Problem Elbow Problem * Therapies (Routine) - New Request Specialty Diagnoses / Procedures Referred By Martir seay Referred To Contact Diagnoses Right arm numbness Andrei Landeros, BELT PRESS OPERATOR, MASTER CHEF [address] [facility] [place] [address] Referral ID Status Reason Start Date Expiration Date V isits Requested Visits Authorized [id number] New Request 08/25/2023 08/24/2024 1 1 Encounter Details Date Type Department Care Team (Late st Contact Info) Description 08/25/2023 1:00 PM CDT Office Visit [facility] [address] [place], [place] [address] Mary Jo Roach, OTR/L [address] [facility] [address] [place] [address] Numbness and tingling of right arm (Primary [...] arm numbness Orders: Evaluation and treatment. Per MASTER CHEF note-Please treat for Right arm numbness (median and ulnar) s/p Right Rotator Cuff surgery. Bracing may include wrist splint and elbow anterior stay. Date of Onset: 06/16/2023 Cause: Right RC repair PMH/Precautions: Patient's PMH was reviewed in [facility]. Refer to EMR for past medical history, medications, drug allergies, and precautions. 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 Brain surgery set for 09/14/2023. Living situation: [...] handout. TREATMENT INTERVENTION: Occupational Therapy Evaluation CPT 00936 (15 minutes untimed) A Low Complexity Occupational [...] with the care plan. Therapeutic Exercise CPT 08508 (15 minutes) Exercise: The patient was instructed [...] appropriate. Therapist Signature: STEVEN Rios/Jaguar, T License #[id number] Visit #1 Payor: [facility] / Plan: SELF MANAGED CARE / Product Type: Commercial / documented in this encounter Plan of Treatment Upcoming Encounters Date Type Department Care Team (Late st Contact Info) Description 10/12/2023 9:00 AM CDT Appointment [facility] [place] [address] Svitlana Olmos MD [address] [place] [address] JANET LYONS [address] Hospital Discharge Follow-up 10/20/2023 10:30 AM CDT Appointment [facility] Neurosurgery/Ortho Spine [address] [facility] [place] [address] 12/06/2023 10:20 AM CDT Appointment [facility] Neurosurgery/Ortho Spine [address] [facility] [place] [address] Jg Munguia MD [address] [place] [address] 01/03/2024 11:20 AM SCRIPT EDITOR Appointment [facility] [address] [place] [address] [address] [facility] [address] [place] [address] Scheduled Referrals Name Type Priority Associated Diagnoses Orde r Schedule Hand Therapy Consult Referral Routine Right arm numbness Ordered: 08/25/2023 documented as of this encounter Visit Diagnoses Diagnosis Numbness and tingling of right arm- Primary Disturbance of skin sensation Recurrent cold sores Herpes simplex without mention of complication documented in this encounter Care Teams Carroting Machine Offbearer Relationship Specialty Start Date End Date Svitlana Olmos MD [address] [place] [address] PCP - General 05/30/10 documented as of this encounter
--- OUTSIDE RECORDS SUMMARY | 2023-10-07 02:14 | XMS_ITS | Encounter Summary ---
Author Organization [facility] Address [address] [place] [address] Care Team Providers Care Burrer Hand Name Role Phone Svitlana Olmos MD Primary Care Provider [phone] Reason for Visit * Reason Comments Dental Services Encounter Details Date Type Department Care Team (Late st Contact Info) Description 08/18/2023 Telephone Dental [facility] Center Unassigned, Provider [address] [place] [address] Dental Services Social History Tobacco Use Types [...] Discussed fractured tooth and no decay present. [place] recommended #3. Advisedto wait w/ crown until [...] 10/12/2023 9:00 AM CDT Appointment [facility] [address] [place] [address] Svitlana Olmos MD [address] [place] [address] Hospital Discharge Follow-up 10/20/2023 10:30 AM CDT Appointment [facility] Neurosurgery/Ortho Spine [address] [facility] [place] [address] 12/06/2023 10:20 AM CDT Appointment [facility] Neurosurgery/Ortho Spine [address] [facility] [place] [address] Jg Munguia MD [address] [place] [address] 01/03/2024 11:20 AM BOND TRADER Appointment [facility] Dental [facility] [address] [place] [address] Latha Burns, [facility] [address] [place] [address] documented as of this encounter Visit Diagnoses Not on filedocumented in this encounter Care Teams Burrer Hand Relationship Specialty Start Date End Date Svitlana Olmos MD [address] [place] [address] PCP - General 05/30/10 documented as of this encounter
--- OUTSIDE RECORDS SUMMARY | 2023-10-07 02:14 | XMS_ITS | Encounter Summary ---
Author Organization [facility] Address [address] [place] [address] Care Team Providers Care Lab Systems Analyst Name Role Phone Svitlana Olmos MD Primary Care Provider [phone] Encounter Details Date Type Department Care Team (Late st Contact Info) Description 06/16/2023 Notes/Orders [facility] 8[address] [place] [address] Allison Harkins MD [address] [place], [place] [address] Social History Tobacco Use Types Packs/Day Years [...] Info) Description 10/12/2023 9:00 AM CDT Appointment [facility] [address] [place] [address] Svitlana Olmos MD [address] [place] [address] Hospital Discharge Follow-up 10/20/2023 10:30 AM CDT Appointment [facility] Neurosurgery/Ortho Spine [address] [place] [address] 12/06/2023 10:20 AM CDT Appointment [facility] Neurosurgery/Ortho Spine [address] [place] [address] Jg Munguia MD [address] [place], [place] [address] 01/03/2024 11:20 AM TOOL SPECIALIST Appointment [facility] Dental [facility] [address] [place] [address] Latha Burns, [facility] [address] [place] [address] documented as of this encounter Visit Diagnoses Not on filedocumented in this encounter Care Teams Lab Systems Analyst Relationship Specialty Start Date End Date Svitlana Olmos MD [address] [place] [address] PCP - General 05/30/10 documented as of this encounter
--- OUTSIDE RECORDS SUMMARY | 2023-10-07 02:14 | XMS_ITS | Encounter Summary ---
Author Organization [facility] Address [address] [place] [address] Care Team Providers Care Technical Recruiter Name Role Phone Svitlana Olmos MD Primary Care Provider [phone] Reason for Visit * Reason Comments Shoulder Problem Encounter Details Date Type Department Care Team (Late st Contact Info) Description 08/11/2023 8:15 AM CDT Therapy [facility] [address] [id number] [place] [address] [place] [address] Traumatic tear of right rotator cuff, unspecified [...] more soreness in the last 2 days. [place] like she slept awkwardly on her shoulder a couple of days ago and woke up sore. Is getting numbness and swelling into the hand which she has discussed with surgeon. OBJECTIVE Current Objective Findings: Shoulder PROM: Flexion - 95 degrees External Rotation - 10 degrees Treatment/Education Today: Therapeutic Exercise (CPT 49219) x 39 minutes: - objective measures above [...] Current Home Exercise Program List: Access Code: [email or web address] - Supine Elbow Flexion Extension AROM - [...] management tasks with ease in 8 weeks. [place] hair and face in 8 weeks. Reach overhead to put items on high shelf with ease in 10 weeks. Driving: Use affected upper extremity for driving in 8 weeks. PLAN: Continue per protocol documented in this encounter Plan of Treatment Upcoming Encounters Date Type Department Care Team (Late st Contact Info) Description 10/12/2023 9:00 AM CDT Appointment [facility] [address] [address] Svitlana Olmos MD [address] [place] [address] Hospital Discharge Follow-up 10/20/2023 10:30 AM CDT Appointment [facility] Neurosurgery/Ortho Spine [address] [facility] [address] 12/06/2023 10:20 AM CDT Appointment [facility] Neurosurgery/Ortho Spine [address] 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
--- OUTSIDE RECORDS SUMMARY | 2023-10-07 02:14 | XMS_ITS | Encounter Summary ---
Author Organization [facility] Address [address] [place] [address] Care Team Providers Care Cyber Ops Planner Name Role Phone Svitlana Olmos MD Primary Care Provider [phone] Reason for Visit * Reason Comments Shoulder Problem Encounter Details Date Type Department Care Team (Late st Contact Info) Description 08/04/2023 1:15 PM CDT Therapy [facility] [address] [address] [place] [address] [place], [place] [phone] Traumatic tear of right rotator cuff, unspecified [...] measured today Treatment/Education Today: Therapeutic Exercise (CPT 69562) x 39 minutes: - objective measures above [...] Current Home Exercise Program List: Access Code: [email or web address] - Supine Elbow Flexion Extension AROM - [...] management tasks with ease in 8 weeks. [place] hair and face in 8 weeks. Reach overhead to put items on high shelf with ease in 10 weeks. Driving: Use affected upper extremity for driving in 8 weeks. PLAN: Continue per protocol documented in this encounter Plan of Treatment Upcoming Encounters Date Type Department Care Team (Late st Contact Info) Description 10/12/2023 9:00 AM CDT Appointment [facility] [address] [address] Svitlana Olmos MD [address] [place] [address] Hospital Discharge Follow-up 10/20/2023 10:30 AM CDT Appointment [facility] Neurosurgery/Ortho Spine [address] [place] [address] 12/06/2023 10:20 AM CDT Appointment [facility] [place] Neurosurgery/Ortho Spine [address] 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
--- OUTSIDE RECORDS SUMMARY | 2023-10-07 02:14 | XMS_ITS | Encounter Summary ---
Author Organization [employer] Address [address], [place] [address] Care Team Providers Care Radiology Administrator Name Role Phone Svitlana Olmos MD Primary Care Provider [phone] Reason for Visit * Reason Comments RASH Encounter Details Date Type Department Care Team (Late st Contact Info) Description 06/18/2019 Nurse Triage [facility] [address] [place] [address] [phone] Svitlana Olmos MD [address] [place] [address] [phone] RASH Social History Tobacco Use Types Packs/Day [...] na Protocols used: RASH OR REDNESS - [id number] * Blanca Rodrigez - 06/18/2019 12:21 PM [...] Department Care Team (Feliberto Contact Info) Description 10/12/2023 9:00 AM CDT Appointment [facility] [address] [address] Svitlana Olmos MD [address] [place] [address] Hospital Discharge Follow-up 10/20/2023 10:30 AM CDT Appointment [facility] Sp[facility] [address] [facility] [place] [address] 12/06/2023 10:20 AM CDT Appointment [facility]Ortho Spine [address] [facility] [place] [address] Jg Munguia MD [address] [place] [address] 01/03/2024 11:20 AM CUSTOMER CARE COORDINATOR Appointment [facility] [id number] [place] [id number] [facility] [address] [place], [place] [phone] documented as of this encounter Visit Diagnoses Not on filedocumented in this encounter Additional Health Concerns Infection Onset Date Last Indicated Resolved Time R/O COVID19 08/23/2019 08/23/2019 08/23/2019 9:17 PM CDT R/O COVID19 09/27/2019 09/27/2019 09/27/2019 10:4 6 PM CDT R/O COVID19 08/24/2020 08/24/2020 08/25/2020 5:22 AM CDT R/O COVID19 03/03/2021 03/03/2021 03/04/2021 2:30 AM CUSTOMER CARE COORDINATOR COVID19 03/03/2021 03/03/2021 03/23/2021 3:17 AM CUSTOMER CARE COORDINATOR documented as of this encounter Care Teams Radiology Administrator Relationship Specialty Start Date End Date Svitlana Olmos MD [address] [place] [address] PCP - General 05/30/10 documented as of this encounter
--- OUTSIDE RECORDS SUMMARY | 2023-10-07 02:15 | XMS_ITS | Referral Summary ---
Author Organization [place] Address [facility] [facility] [place] [address] Care Team Providers Care Truck Despatcher Name Role Phone Svitlana Olmos Primary Care Provider [phone] Allergies No known active allergies Medications Medication [...] Advance Directives For more information, please contact: [phone] * Full Code (Latest Code Status on File) Date Activated Date Inactivated Comments 07/28/2010 5:56 PM 07/31/2010 4:34 PM Care Teams Truck Despatcher Relationship Specialty Start Date End Date Svitlana Olmos PCP - General Family Practice 06/20/17
== END 2023-09-28 15:09 | disposition home or self-care (01) ==
LOC: AMB 10-07 02:07
PROVIDERS: Visit Provider Student in an Organized Health Care Education/Training Program
DX: T88.8XXA Other specified complications of surgical and medical care, not elsewhere classified, initial encounter (principal)
CPT/HCPCS: A0425; A0434